=== PATIENT | male | born 1955 | race Caucasian/White ===

== ENCOUNTER 2017-09-23 14:38 | Inpatient (IN) | payer MEDICARE ==
[2017-09-23] MEDS ORDERED: LORazepam 1 MG TAB PO STA (15:10)
[2017-09-23] MEDS ORDERED: MORPHINE SULFATE 2 MG/ML SYRINGE IVP STA (15:11)
[2017-09-23] MEDS ORDERED: ASPIRIN 81 MG PO STA (15:11)
[2017-09-23] MEDS ORDERED: NITROGLYCERIN OINT 1 INCH/GM PACKET TOPICAL STA (15:11)
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
[2017-09-23] MEDS ORDERED: MAG HYDROX/AL HYDROX/SIMETH 30 ML CUP PO PRN (19:15)
[2017-09-23] MEDS ORDERED: ZIPRASIDONE 20 MG VIAL IM PRN (19:15)
[2017-09-23] MEDS ORDERED: MAGNESIUM HYDROXIDE 2,400 MG/10 ML CUP PO PRN (19:15)
[2017-09-23] MEDS ORDERED: LORazepam 1 MG TAB PO PRN (19:15)
[2017-09-23] MEDS ORDERED: ACETAMINOPHEN TAB 325 MG TAB PO PRN (19:15)
[2017-09-23] MEDS: NICOTINE 21MG/24HR PATCH TRANSDERM SCH (19:40)
[2017-09-24] MEDS ORDERED: BUTALB/APAP/CAFF 50-325-40MG TAB PO ONE (00:22)
[2017-09-24 00:46] VITALS: BMI 30.2
[2017-09-24 05:13] VITALS: BP 110/89; PULSE 89; RESP 14; TEMP 97.9
[2017-09-24] MEDS: NICOTINE 21MG/24HR PATCH TRANSDERM SCH (09:35)
[2017-09-24] MEDS ORDERED: ASPIRIN 81 MG PO SCH (13:00)
[2017-09-24] MEDS ORDERED: CLOPIDOGREL 75 MG TAB PO SCH (13:00)
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
--- NOTE | 2017-10-17 23:13 | P.DS ---
Providers Date of admission: 09/23/17 18:55 Expected date of discharge: 09/24/17 Attending physician: Alison Koenig DO Consults: 09/23/17 18:22 Consult Physician Stat Consulting Provider: Yenny Perla Consult Reason/Comments: chest pain with a history of ischemic heart disease Do you want consulting provider notified?: Yes 09/23/17 18:24 Consult Physician Stat Consulting Provider: Venancio Gibbs Consult Reason/Comments: chest pain Do you want consulting provider notified?: Yes Primary care physician: Isaac Larson - Discharge Diagnosis(es) (1) Adjustment disorder with mixed disturbance of emotions and conduct Status: Acute Hospital Course: [place] [facility] but later signed in voluntarily. He adamantly denied SI and was not an acute danger to himself at time of evaluation. Although he did have limited judgment and poor reaction ( anger) to stress, he did not meet criteria for continued involuntary hospitalization. He was opposed to the option of psychotropic medications at the time of admission and evaluation so it was determined that he would not benefit from further voluntary admission. Patient did contact his sister and SW also spoke with her. Sister was willing to take patient to her home and monitor him for safety. She voiced that she was not concerned of patient being a danger to himself. Therefore, pt was discharged to his sister's home. Recommend that patient follow-up with individual psychotherapy for further anger management and improvement of coping skills. Patient Condition at Discharge: Good Plan - Discharge Summary New Discharge Prescriptions: Continue HYDROcodone/APAP 7.5-325MG [[place] 7.5-325] 1 tab PO Q4H PRN PRN Reason: Pain Doxycycline Hyclate [Vibramycin] 100 mg PO BID Discharge Medication List Doxycycline Hyclate [Vibramycin] 100 mg PO BID 09/23/17 [History] HYDROcodone/APAP 7.5-325MG [[place] 7.5-325] 1 tab PO Q4H PRN 09/23/17 [History] Follow up Appointment(s)/Referral(s): [facility] [Outside] - 10/04/17 11:00 am (w/ Sakshi Pink. Patient to arrive at 10:45am for paperwork. ) Isaac Larson MD [Primary Care Provider] - 1-2 days Patient Instructions/Handouts: Stress (DC), Suicide Prevention for Adults (DC) Activity/Diet/Wound Care/Special Instructions: No alcohol or street drugs, activity as tolerated, diet as tolerated, remove firearms from home. Call crisis line or 145 if having thoughts to hurt yourself or anyone else. ' Follow up with outpatient provider as set up at time of discharge. Patient is to stay with sister upon discharge, she is picking him up and monitoring him for safety. Discharge Disposition: HOME SELF-CARE
== END 2017-09-24 16:15 | disposition home or self-care (01) | DRG 882 ==
LOC: EC 14:38 → 3MHU 18:55
PROVIDERS: ADMIT Psychiatry & Neurology Psychiatry; ATTEND Psychiatry & Neurology Psychiatry
DX: F43.25 Adjustment disorder with mixed disturbance of emotions and conduct (principal); I11.0 Hypertensive heart disease with heart failure; I50.9 Heart failure, unspecified; R45.851 Suicidal ideations; E78.5 Hyperlipidemia, unspecified; G43.909 Migraine, unspecified, not intractable, without status migrainosus; I25.10 Atherosclerotic heart disease of native coronary artery without angina pectoris; Z81.1 Family history of alcohol abuse and dependence; Z91.14 Patient's other noncompliance with medication regimen; Z91.410 Personal history of adult physical and sexual abuse; Z91.411 Personal history of adult psychological abuse; Z95.5 Presence of coronary angioplasty implant and graft; Z88.0 Allergy status to penicillin; Z79.02 Long term (current) use of antithrombotics/antiplatelets; Z79.82 Long term (current) use of aspirin; Z79.899 Other long term (current) drug therapy; Z71.6 Tobacco abuse counseling; F17.200 Nicotine dependence, unspecified, uncomplicated
CPT/HCPCS: 82075; 84443; 93005; 99285

== ENCOUNTER 2019-02-16 18:24 | Inpatient (IN) | payer MEDICARE ==
[2019-02-16] MEDS ORDERED: IPRATROPIUM-ALBUTEROL 3 ML NEB INHALATION STA (18:34)
[2019-02-16] MEDS ORDERED: LEVOFLOXACIN 750MG-D5W PMX 750 MG in DEXTROSE/WATER 1 150ML.BAG IVPB STA (18:34)
[2019-02-16] MEDS ORDERED: methylPREDNISolone SOD SUCCI 125 MG/2 ML VIAL IV STA (18:34)
[2019-02-16] MEDS ORDERED: SODIUM CHLORIDE 0.9% 1,000 ML IV STA (18:34)
--- NOTE | 2019-02-16 18:35 | ED ---
SOB HPI - General Chief Complaint: Shortness of Breath Stated Complaint: Flu Time Seen by Provider: 02/16/19 18:33 Source: patient, RN notes reviewed, old records reviewed Mode of arrival: ambulatory Limitations: no limitations - History of Present Illness Initial Comments: This is a 63-year-old male the ER for evaluation. This patient presents today f or evaluation regarding severe shortness of breath. Patient is at bedside patient poor strain to distress, patient was seen at urgent care and had a diagnosis of influenza A yesterday. Significant shortness of breath developed initially today. Persistent fevers decreased appetite decreased oral intake. No prior similar similar complaint patient does have history of CHF MD Complaint: shortness of breath, cough, chest pain -: days(s) (2) Severity: moderate (CP), severe (SOB) Severity scale (1-10): 7 Quality: aching Consistency: constant Improves With: oxygen Worsens With: exertion, movement Known History Of: congestive heart failure Context: recent URI (FLuA) Associated Symptoms: chest pain, pain with inspiration, fever, cough Treatments Prior to Arrival: none - Related Data Home Medications Medication Instructions Recorded Confirmed Doxycycline Hyclate [Vibramycin] 100 mg PO BID 09/23/17 09/24/17 HYDROcodone/APAP 7.5-325MG [[place] 1 tab PO Q4H PRN 09/23/17 09/24/17 7.5-325] Allergies Allergy/AdvReac Type Severity Reaction Status Date / Time Penicillins Allergy Unknown Verified 02/16/19 18:28 Review of Systems ROS Statement: Those systems with pertinent positive or pertinent negative responses have been documented in the HPI. ROS Other: All systems not noted in ROS Statement are negative. Past Medical History Past Medical History: Heart Failure History of Any Multi-Drug Resistant Organisms: None Reported Past Surgical History: Heart Catheterization With Stent Additional Past Surgical History / Comment(s): NOSE, BRAIN SURGERY, EYE SURGERY Date of Last Stent Placement:: ukn Past Psychological History: No Psychological Hx Reported Smoking Status: Current every day smoker Past Alcohol Use History: None Reported Past Drug Use History: None Reported General Exam Limitations: no limitations General appearance: alert, anxious, in distress Head exam: Present: atraumatic, normocephalic, normal inspection Eye exam: Present: normal appearance, PERRL, EOMI. Absent: scleral icterus, conjunctival injection, periorbital swelling ENT exam: Present: normal exam, mucous membranes moist Neck exam: Present: normal inspection. Absent: tenderness, meningismus, lymphadenopathy Respiratory exam: Present: wheezes, accessory muscle use, decreased breath sounds. Absent: respiratory distress, rales, rhonchi, stridor Cardiovascular Exam: Present: regular rate, normal rhythm, normal heart sounds. Absent: systolic murmur, diastolic murmur, rubs, gallop, clicks GI/Abdominal exam: Present: soft, normal bowel sounds. Absent: distended, tenderness, guarding, rebound, rigid Extremities exam: Present: normal inspection, full ROM, normal capillary refill. Absent: tenderness, pedal edema, joint swelling, calf tenderness Back exam: Present: normal inspection Neurological exam: Present: alert, oriented X3, CN II-XII intact Psychiatric exam: Present: normal affect, normal mood Skin exam: Present: warm, dry, intact, normal color. Absent: rash Course Vital Signs 02/16/19 02/16/19 02/16/19 18:26 19:06 19:35 Temperature 96.9 F L Pulse Rate 66 100 100 Respiratory 36 H Rate Blood Pressure 132/111 O2 Sat by Pulse 95 Oximetry - Reevaluation(s) Reevaluation #1: 02/16/19 20:12 Medical record reviewed Reevaluation #2: 02/16/19 20:12 Patient placed on BiPAP on arrival to emergency room. After breathing treatments, patient is able to rest severedistress in severe distress, though still Medical Decision Making - Medical Decision Making 69 male the ER with known history of once a coming of severe shortness of breath hypoxia. Significant left upper lobe pneumonia. Patient placed on multiple antibiotics, Tamiflu. Admitted for cardiopulmonary support, patient currently resting comfortably on BiPAP - Lab Data Result diagrams: 02/16/19 19:00 02/16/19 19:00 Lab Results 02/16/19 02/16/19 02/16/19 Range/Units 19:00 19:00 19:00 WBC 13.3 H (3.8-10.6) k/uL RBC 5.44 (4.30-5.90) m/uL Hgb 17.5 (13.0-17.5) gm/dL Hct 56.2 H (39.0-53.0) % MCV 103.3 H (80.0-100.0) fL MCH 32.2 (25.0-35.0) pg MCHC 31.2 (31.0-37.0) g/dL RDW 14.1 (11.5-15.5) % Plt Count 250 (150-450) k/uL PT (9.0-12.0) sec INR (<1.2) APTT (22.0-30.0) sec Sodium 144 (137-145) mmol/L Potassium 4.0 (3.5-5.1) mmol/L Chloride 105 (98-107) mmol/L Carbon Dioxide 14 L (22-30) mmol/L Anion Gap 25 mmol/L BUN 25 H (9-20) mg/dL Creatinine 3.34 H (0.66-1.25) mg/dL Est GFR (CKD-EPI)AfAm 22 (>60 ml/min/1.73 sqM) Est GFR (CKD-EPI)NonAf 19 (>60 ml/min/1.73 sqM) Glucose 126 H (74-99) mg/dL Calcium 9.5 (8.4-10.2) mg/dL Magnesium 1.9 (1.6-2.3) mg/dL Total Bilirubin 3.5 H (0.2-1.3) mg/dL AST 51 (17-59) U/L ALT 29 (21-72) U/L Alkaline Phosphatase 103 (38-126) U/L Troponin I (0.000-0.034) ng/mL NT-Pro-B Natriuret Pep 4770 pg/mL Total Protein 7.0 (6.3-8.2) g/dL Albumin 3.8 (3.5-5.0) g/dL 02/16/19 02/16/19 Range/Units 19:00 19:00 WBC (3.8-10.6) k/uL RBC (4.30-5.90) m/uL Hgb (13.0-17.5) gm/dL Hct (39.0-53.0) % MCV (80.0-100.0) fL MCH (25.0-35.0) pg MCHC (31.0-37.0) g/dL RDW (11.5-15.5) % Plt Count (150-450) k/uL PT 10.9 (9.0-12.0) sec INR 1.0 (<1.2) APTT 30.0 (22.0-30.0) sec Sodium (137-145) mmol/L Potassium (3.5-5.1) mmol/L Chloride (98-107) mmol/L Carbon Dioxide (22-30) mmol/L Anion Gap mmol/L BUN (9-20) mg/dL Creatinine (0.66-1.25) mg/dL Est GFR (CKD-EPI)AfAm (>60 ml/min/1.73 sqM) Est GFR (CKD-EPI)NonAf (>60 ml/min/1.73 sqM) Glucose (74-99) mg/dL Calcium (8.4-10.2) mg/dL Magnesium (1.6-2.3) mg/dL Total Bilirubin (0.2-1.3) mg/dL AST (17-59) U/L ALT (21-72) U/L Alkaline Phosphatase (38-126) U/L Troponin I 0.205 H* (0.000-0.034) ng/mL NT-Pro-B Natriuret Pep pg/mL Total Protein (6.3-8.2) g/dL Albumin (3.5-5.0) g/dL - EKG Data -: EKG Interpreted by Me (EKG shows sinus tachycardia rate of 107, IL 1:30, QRS 96, QTc 50,) - Radiology Data Radiology results: report reviewed (S x-ray positive for left upper lobe pneumonia), image reviewed Critical Care Time Critical Care Time: Yes Total Critical Care Time: 65 Disposition Clinical Impression: Community acquired pneumonia, Influenza A, Fever, Hypoxia, Chest pain Disposition: ADMITTED IP TO THIS HOSP Condition: Serious Is patient prescribed a controlled substance at d/c from ED?: No Referrals: Isaac Larson MD [Primary Care Provider] - 1-2 days
[2019-02-16] MEDS: SODIUM CHLORIDE 0.9% 1,000 ML IV STA ×2 (19:00→23:49)
[2019-02-16 19:23] LABS: HGB 17.5 gm/dL (13.0-17.5); MCH 32.2 pg (25.0-35.0); MCHC 31.2 g/dL (31.0-37.0); MCV 103.3 fL (80.0-100.0); Macrocytosis Slight; Mean Platelet Volume 8.6; Platelet Count 250 k/uL (150-450); RBC 5.44 m/uL (4.30-5.90); RDW 14.1 % (11.5-15.5); WBC 13.3 k/uL (3.8-10.6)
[2019-02-16 19:24] LABS: Albumin 3.8 g/dL (3.5-5.0); Calcium 9.5 mg/dL (8.4-10.2); Magnesium 1.9 mg/dL (1.6-2.3); Total Bilirubin 3.5 mg/dL (0.2-1.3)
[2019-02-16 19:25] LABS: Prothrombin Time 10.9 sec (9.0-12.0)
[2019-02-16 19:28] LABS: HCT 56.2 % (39.0-53.0)
[2019-02-16] MEDS ORDERED: MORPHINE SULFATE 4 MG/ML SYRINGE IVP STA (19:45)
[2019-02-16] MEDS ORDERED: LORazepam 2 MG/ML INJ IV STA (19:45)
[2019-02-16] MEDS ORDERED: MORPHINE SULFATE 4 MG/ML SYRINGE IVP PRN (19:45)
[2019-02-16] MEDS ORDERED: PNEUMONIA PROTOCOL UTILIZED 1 EACH MISC PO PRN (19:47)
[2019-02-16] MEDS ORDERED: ALBUTEROL NEBULIZED 2.5 MG/3 ML INHALATION PRN (19:47)
--- NOTE | 2019-02-16 19:53 | XR ---
EXAMINATION TYPE: XR chest 1V DATE OF EXAM: 02/16/2019 COMPARISON: NONE HISTORY: Difficulty breathing TECHNIQUE: Single frontal view of the chest is obtained. FINDINGS: There is wedge-shaped area of 11 cm consolidation in the lateral left upper lobe. The othe r lung garsia are fairly clear. Heart and mediastinum are normal. There are chest leads. Bony thorax is intact. IMPRESSION: Left upper lobe pneumonia. Normal heart.
[2019-02-16] MEDS ORDERED: NALOXONE 0.4 MG/ML 1 ML VIAL IV STA (20:02)
[2019-02-16] MEDS ORDERED: KETOROLAC 30 MG/ML 1 ML VIAL IVP STA (20:02)
[2019-02-16] MEDS: SODIUM CHLORIDE 0.9% 500 ML 500 ML IV SCH ×3 (20:03→20:59)
[2019-02-16 20:13] LABS: Band Neutrophils % 48 %; Large Platelets Present; Metamyelocytes # (M) 0.93 k/uL (0); Metamyelocytes % 7 %; Monocytes # (M) 0.67 k/uL (0-1.0); Myelocytes # (M) 0.53 k/uL (0); Myelocytes % 4 %; Neutrophils % (M) 38 %; Nucleated Red Blood Cells 0 /100 WBC (0-0); Total Cells Counted 200; Toxic Vacuolation Present
[2019-02-16 20:14] LABS: Toxic Granulation Present
[2019-02-16] MEDS: SODIUM CHLORIDE 0.9% 1,000 ML IV SCH (21:01)
--- NOTE | 2019-02-16 21:25 | ED ---
Medical Decision Making - Medical Decision Making 63 male the ER, during patient's ER stay was found he has both influenza and positive for left upper lobe pneumonia, septic and the fact that his blood pressure is labile with renal failure, end organ damage. Lactic acid of 12. Patient given 30 mL/kg dose of IV fluid, but on multiple broad-spectrum antibiotics, decision made to place central line for labile blood pressure. Patient having significant decompensation Family is updated regarding results, findings, questions are answered. Decision made to place patient in the ICU, spoke with Dr. Oates for the ICU as well as admitting physician Dr. Ibrahim Patient remains on BiPAP, he remains awake and alert tolerating BiPAP a ppropriately patient is able to answer questions. - Lab Data Result diagrams: 02/17/19 04:20 02/17/19 04:20 Lab Results 02/16/19 02/16/19 02/16/19 Range/Units 19:00 19:00 19:00 WBC 13.3 H (3.8-10.6) k/uL RBC 5.44 (4.30-5.90) m/uL Hgb 17.5 (13.0-17.5) gm/dL Hct 56.2 H (39.0-53.0) % MCV 103.3 H (80.0-100.0) fL MCH 32.2 (25.0-35.0) pg MCHC 31.2 (31.0-37.0) g/dL RDW 14.1 (11.5-15.5) % Plt Count 250 (150-450) k/uL Neutrophils % (Manual) 38 % Band Neutrophils % 48 % Monocytes % (Manual) 5 % Metamyelocytes % 7 % Myelocytes % 4 % Neutrophils # (Manual) 11.40 H (1.3-7.7) k/uL Monocytes # (Manual) 0.67 (0-1.0) k/uL Metamyelocytes # (Man) 0.93 H (0) k/uL Myelocytes # (Manual) 0.53 H (0) k/uL Nucleated RBCs 0 (0-0) /100 WBC Manual Slide Review Performed Toxic Granulation Present Toxic Vacuolation Present Large Platelets Present Macrocytosis Slight PT (9.0-12.0) sec INR (<1.2) APTT (22.0-30.0) sec Sodium 144 (137-145) mmol/L Potassium 4.0 (3.5-5.1) mmol/L Chloride 105 (98-107) mmol/L Carbon Dioxide 14 L (22-30) mmol/L Anion Gap 25 mmol/L BUN 25 H (9-20) mg/dL Creatinine 3.34 H (0.66-1.25) mg/dL Est GFR (CKD-EPI)AfAm 22 (>60 ml/min/1.73 sqM) Est GFR (CKD-EPI)NonAf 19 (>60 ml/min/1.73 sqM) Glucose 126 H (74-99) mg/dL Plasma Lactic Acid Tra (0.7-2.0) mmol/L Calcium 9.5 (8.4-10.2) mg/dL Magnesium 1.9 (1.6-2.3) mg/dL Total Bilirubin 3.5 H (0.2-1.3) mg/dL AST 51 (17-59) U/L ALT 29 (21-72) U/L Alkaline Phosphatase 103 (38-126) U/L Troponin I (0.000-0.034) ng/mL NT-Pro-B Natriuret Pep 4770 pg/mL Total Protein 7.0 (6.3-8.2) g/dL Albumin 3.8 (3.5-5.0) g/dL 02/16/19 02/16/19 02/16/19 Range/Units 19:00 19:00 19:50 WBC (3.8-10.6) k/uL RBC (4.30-5.90) m/uL Hgb (13.0-17.5) gm/dL Hct (39.0-53.0) % MCV (80.0-100.0) fL MCH (25.0-35.0) pg MCHC (31.0-37.0) g/dL RDW (11.5-15.5) % Plt Count (150-450) k/uL Neutrophils % (Manual) % Band Neutrophils % % Monocytes % (Manual) % Metamyelocytes % % Myelocytes % % Neutrophils # (Manual) (1.3-7.7) k/uL Monocytes # (Manual) (0-1.0) k/uL Metamyelocytes # (Man) (0) k/uL Myelocytes # (Manual) (0) k/uL Nucleated RBCs (0-0) /100 WBC Manual Slide Review Toxic Granulation Toxic Vacuolation Large Platelets Macrocytosis PT 10.9 (9.0-12.0) sec INR 1.0 (<1.2) APTT 30.0 (22.0-30.0) sec Sodium (137-145) mmol/L Potassium (3.5-5.1) mmol/L Chloride (98-107) mmol/L Carbon Dioxide (22-30) mmol/L Anion Gap mmol/L BUN (9-20) mg/dL Creatinine (0.66-1.25) mg/dL Est GFR (CKD-EPI)AfAm (>60 ml/min/1.73 sqM) Est GFR (CKD-EPI)NonAf (>60 ml/min/1.73 sqM) Glucose (74-99) mg/dL Plasma Lactic Acid Tra 12.6 H* (0.7-2.0) mmol/L Calcium (8.4-10.2) mg/dL Magnesium (1.6-2.3) mg/dL Total Bilirubin (0.2-1.3) mg/dL AST (17-59) U/L ALT (21-72) U/L Alkaline Phosphatase (38-126) U/L Troponin I 0.205 H* (0.000-0.034) ng/mL NT-Pro-B Natriuret Pep pg/mL Total Protein (6.3-8.2) g/dL Albumin (3.5-5.0) g/dL - Radiology Data Radiology results: report reviewed (Chest x-ray shows right upper lobe pneumonia, stable, positive central venous catheterization), image reviewed Critical Care Time Critical Care Time: Yes Total Critical Care Time: 65 Disposition Clinical Impression: Community acquired pneumonia, Influenza A, Fever, Hypoxia, Chest pain, Sepsis, ARF (acute renal failure) Disposition: ADMITTED IP TO THIS HOSP Condition: Critical Procedures - Central Line Placement Right IJ Consent Obtained: verbal consent Patient Placed on Monitor/Pulse Ox: Yes Prep: mask, gown, gloves Central Line Prep: Povidone-Iodine 1% Local Anesthesia Used: Lidocaine 1% Central Line Lumen Inserted: triple Bloods Obtained for Lab: Yes Central Line Position: good blood return, all ports aspirated, flushed, capped, sutured in place with 3-0 nylon Post Procedure X-Ray: tip of catheter in good position Patient Tolerated Procedure: well Complications: none - Sepsis Sepsis Focused Exam #1 Time Sepsis Criteria Met: 20:00 Sepsis Focused Exam Date: 02/16/19 Sepsis Focused Exam Time: 23:00 Sepsis Focused Exam Complete: Yes Vital Signs & RN Notes Reviewed: Yes Capillary Refill: < 2 Seconds: Fingers, Toes Peripheral Pulses: Normal: Radial (R), Radial (L), Posterior Tibialis (R), Posterior Tibialis (L), Dorsalis Pedis (R), Dorsalis Pedis (L) Skin Color: Flushed Respiratory Exam: respiratory distress, wheezes, rhonchi Cardiovascular Exam: tachycardia
[2019-02-16] MEDS ORDERED: OSELTAMIVIR 75 MG CAP PO STA (21:30)
[2019-02-16] MEDS: IPRATROPIUM-ALBUTEROL 3 ML NEB INHALATION SCH (22:22)
[2019-02-16 22:23] LABS: Glucose,Whole Blood 140 mg/dL (75-99)
[2019-02-16] MEDS ORDERED: ONDANSETRON 4 MG/2 ML VIAL IVP PRN (23:05)
[2019-02-16] MEDS ORDERED: SODIUM CHLORIDE 0.9% 1,000 ML IV ONE (23:11)
[2019-02-16] MEDS: HYDROmorphone 1 MG/ML 1 ML SYRINGE IVP PRN (23:18)
[2019-02-16] MEDS: PANTOPRAZOLE 40 MG/10 ML VIAL IVP SCH (23:44)
[2019-02-17] MEDS: IPRATROPIUM-ALBUTEROL 3 ML NEB INHALATION SCH ×7 (00:01→23:08)
[2019-02-17] MEDS: NOREPINEPHRINE 32 MG in SODIUM CHLORIDE 0.9% 218 ML IV SCH ×2 (00:20→12:58)
[2019-02-17] MEDS: SODIUM CHLORIDE 0.9% 1,000 ML IV SCH ×2 (03:47→22:40)
[2019-02-17 04:47] LABS: HCT 45.3 % (39.0-53.0); MCH 31.5 pg (25.0-35.0); MCHC 31.5 g/dL (31.0-37.0); MCV 100.1 fL (80.0-100.0); Mean Platelet Volume 8.1; Platelet Count 154 k/uL (150-450); RBC 4.52 m/uL (4.30-5.90); RDW 13.7 % (11.5-15.5); WBC 11.1 k/uL (3.8-10.6)
[2019-02-17 04:52] LABS: Calcium 7.1 mg/dL (8.4-10.2); Magnesium 1.5 mg/dL (1.6-2.3); Phosphorus 4.8 mg/dL (2.5-4.5); Potassium 4.7 mmol/L (3.5-5.1)
[2019-02-17 04:56] LABS: HGB 14.2 gm/dL (13.0-17.5)
[2019-02-17] MEDS ORDERED: Magnesium Replacement Protocol 1 EACH MISC MISCELLANE PRN (05:26)
[2019-02-17] MEDS: LORazepam 2 MG/ML INJ IV PRN ×2 (05:38→09:13)
[2019-02-17] MEDS: MAGNESIUM SULFATE-D5W PMX 1 GM in DEXTROSE/WATER 1 100ML.BAG IVPB SCH ×2 (05:59→07:03)
[2019-02-17 07:26] LABS: Band Neutrophils % 46 %; Lymphocytes # (M) 0.11 k/uL (1.0-4.8); Metamyelocytes # (M) 0.22 k/uL (0); Metamyelocytes % 2 %; Monocytes # (M) 0.22 k/uL (0-1.0); Neutrophils % (M) 49 %; Nucleated Red Blood Cells 0 /100 WBC (0-0); Total Cells Counted 100; Toxic Granulation Present
[2019-02-17] MEDS: ENOXAPARIN 30 MG/0.3 ML SYRINGE SQ SCH (08:11)
[2019-02-17] MEDS: PANTOPRAZOLE 40 MG/10 ML VIAL IVP SCH ×2 (08:11→20:32)
[2019-02-17] MEDS ORDERED: FUROSEMIDE 10 MG/ML 10 ML VIAL IV STA (08:59)
[2019-02-17] MEDS ORDERED: VANCOMYCIN IV PER PHARMACY 1 EACH MISC MISCELLANE PRN (09:01)
--- NOTE | 2019-02-17 09:12 | XR ---
EXAMINATION TYPE: XR chest 1V DATE OF EXAM: 02/17/2019 COMPARISON: 02/16/2019 HISTORY: Shortness of breath TECHNIQUE: Single frontal view of the chest is obtained. FINDINGS: Left upper lobe infiltrate persists. Subsegmental infiltrate left lung base and small effu phillip also is reactive. There is now a right-sided central venous catheter the tip overlying the right atrium. No sizable pneumothorax. Chronic rib deformities noted. Heart size stable. Arthropathy of th e shoulders.. IMPRESSION: Stable left upper and left lower lobe areas of infiltrate. Correlate for pneumonia.
[2019-02-17] MEDS ORDERED: SODIUM CHLORIDE 0.9% 1,000 ML IV SCH (09:15)
[2019-02-17] MEDS: methylPREDNISolone SOD SUCCI 40 MG/ML 1 ML VIAL IV SCH ×2 (09:28→16:47)
[2019-02-17 09:50] LABS: ABG Base Excess -15.6 mmol/L; ABG HCO3 14 mmol/L (21-25); ABG Oxygen Saturation 99.2 % (94-97); ABG PCO2 42 mmHg (35-45); ABG PO2 172 mmHg (83-108); ABG TCO2 15 mmol/L (19-24)
[2019-02-17] MEDS ORDERED: SODIUM BICARB 8.4% 50 ML SYR (1 MEQ/ML) IV ONE ×3 (09:54→13:13)
[2019-02-17] MEDS ORDERED: VANCOMYCIN 1,750 MG in SODIUM CHLORIDE 0.9% 500 ML 500 ML IVPB ONE (10:00)
[2019-02-17 10:01] LABS: ABG PH 7.12 (7.35-7.45)
[2019-02-17] MEDS: HYDROmorphone 1 MG/ML 1 ML SYRINGE IVP PRN (10:16)
--- NOTE | 2019-02-17 10:45 | P.NPCON ---
History of Present Illness - Reason for Consult acute renal failure - History of Present Illness Reason for consultation: Acute kidney injury History of present illness: Patient is a 63-year-old male seen in renal consultation for acute kidney injury. Unclear as toany renal function is. Creatinine was 3.34 on admission yesterday and is up to 3.41 today. Patient presented to the hospital or shortness of breath. Patient was diagnosed with influenza A a day before admission. His oral intake has been poor. Patient is currently quite agitated. He is on a BiPAP. ABG suggestive of metabolic acidosis. His bicarb level is 16. Patient was quite hypotensive on admission with systolic blood pressures in the 70s. This morning his blood pressure was 96/56. He did receive 4-1/2 L of normal saline on admission. He also received a dose of IV Lasix this morning. He is maintained on antibiotics as well as Tamiflu. He was also having vomiting and diarrhea prior to admission. Seems to have improved. No history of diabetes. Patient is not able to provide any history at this time. Vital signs are stable. Blood pressures on the lower side. General: The patient appeared well nourished and normally developed. HEENT: Head exam is unremarkable. Neck is without jugular venous distension. LUNGS: Breath sounds decreased. HEART: Rate and Rhythm are regular. First and second heart sounds normal. No murmurs, rubs or gallops. ABDOMEN: Abdominal exam reveals normal bowel sounds. Non-tender and non- distended. No evidence of peritonitis. EXTREMITITES: No clubbing, cyanosis, or edema. Past Medical History Past Medical History: Heart Failure History of Any Multi-Drug Resistant Organisms: None Reported Past Surgical History: Heart Catheterization With Stent Additional Past Surgical History / Comment(s): NOSE, BRAIN SURGERY, EYE SURGERY Past Anesthesia/Blood Transfusion Reactions: No Reported Reaction Date of Last Stent Placement:: ukn Past Psychological History: No Psychological Hx Reported Smoking Status: Current every day smoker Past Alcohol Use History: None Reported Past Drug Use History: None Reported Medications and Allergies Home Medications Medication Instructions Recorded Confirmed Type Doxycycline Hyclate [Vibramycin] 100 mg PO BID 09/23/17 09/24/17 History HYDROcodone/APAP 7.5-325MG [[place] 1 tab PO Q4H PRN 09/23/17 09/24/17 History 7.5-325] Allergies Allergy/AdvReac Type Severity Reaction Status Date / Time Penicillins Allergy Unknown Verified 02/16/19 18:28 Physical Exam Vitals: Vital Signs Temp Pulse Resp BP Pulse Ox 02/17/19 09:00 114 H 21 96/56 96 02/17/19 08:00 96.8 F L 111 H 18 104/59 96 02/17/19 07:41 114 H 02/17/19 07:25 114 H 02/17/19 05:00 110 H 21 85/56 96 02/17/19 04:57 97 02/17/19 04:00 97.6 F 108 H 16 91/64 96 02/17/19 03:45 111 H 02/17/19 03:29 111 H 02/17/19 03:00 112 H 13 96/61 95 02/17/19 02:00 115 H 25 H 94/56 97 02/17/19 01:00 114 H 21 94/56 97 02/17/19 00:45 115 H 22 97/60 95 02/17/19 00:15 114 H 02/17/19 00:02 112 H 02/17/19 00:00 97.6 F 111 H 25 H 102/65 98 02/16/19 23:58 98 02/16/19 23:30 114 H 23 102/65 98 02/16/19 23:00 112 H 31 H 109/56 96 02/16/19 22:45 109 H 29 H 109/56 96 02/16/19 22:30 109 H 25 H 87/64 97 02/16/19 22:15 97.5 F L 112 H 30 H 114/61 99 02/16/19 21:52 96.9 F L 02/16/19 21:27 107 H 24 95/59 98 02/16/19 21:03 97.4 F L 104 H 22 87/56 98 02/16/19 20:18 106 H 24 92/59 95 02/16/19 20:12 24 02/16/19 20:10 112 H 24 72/58 95 02/16/19 19:47 24 02/16/19 19:35 100 02/16/19 19:06 100 02/16/19 18:26 96.9 F L 66 36 H 132/111 95 Intake and Output 02/16/19 02/17/19 02/17/19 22:59 06:59 14:59 Intake Total 150 2550 150 Output Total 50 Balance 150 2500 150 Intake: IV 150 Sodium Chloride 0.9% 1, 150 000 ml @ 150 mls/hr IV . Q6H40M [facility] Rx#:[id number] Intake, IV Titration 150 2550 Amount Sodium Chloride 0.9% 1, 150 1050 000 ml @ 150 mls/hr IV . Q6H40M [facility] Rx#:[id number] Sodium Chloride 0.9% 1, 1000 000 ml @ 999 mls/hr IV . Q1H1M [facility] Rx#:[id number] Sodium Chloride 0.9% 500 500 ml 500 ml @ 1000 mls/hr IV Q35M [facility] Rx#:[id number] Output: Urine 50 Other: Weight 95.254 kg 96 kg Results - Lab Results Most recent lab results ABG pH 7.12 (7.35-7.45) L* 02/17/19 09:46 ABG pCO2 42 mmHg (35-45) 02/17/19 09:46 ABG pO2 172 mmHg (83-108) H 02/17/19 09:46 ABG HCO3 14 mmol/L (21-25) L 02/17/19 09:46 ABG O2 Saturation 99.2 % (94-97) H 02/17/19 09:46 Calcium 7.1 mg/dL (8.4-10.2) L 02/17/19 04:20 Phosphorus 4.8 mg/dL (2.5-4.5) H 02/17/19 04:20 Magnesium 1.5 mg/dL (1.6-2.3) L 02/17/19 04:20 02/17/19 04:20 02/17/19 04:20 Assessment and Plan Plan: Assessment: 1. Acute kidney injury secondary to ATN secondary to hypotension and sepsis. Creatinine 3.41 today. Unknown baseline creatinine. 2. Metabolic acidosis secondary to acute kidney injury and lactic acidosis. Additional respiratory acidosis. 3. Severe sepsis secondary to pneumonia and influenza A. Maintained on Tamiflu and antibiotics. 4. Hypomagnesemia. Being replaced. Plan: Start sodium bicarbonate drip to be run at 80 mL an hour. Follow-up cultures. Maintain antibiotics. Continue to monitor renal function and urine output. No urgent need for renal present therapy at this time. Check urinalysis and renal ultrasound. Thank you for the consultation. I will continue to follow the patient with you during his hospital stay.
[2019-02-17 11:00] LABS: ABG Base Excess -13.1 mmol/L; ABG HCO3 16 mmol/L (21-25); ABG Oxygen Saturation 99.1 % (94-97); ABG PCO2 45 mmHg (35-45); ABG PO2 159 mmHg (83-108); ABG TCO2 17 mmol/L (19-24)
[2019-02-17 11:04] LABS: ABG PH 7.15 (7.35-7.45)
--- NOTE | 2019-02-17 11:36 | P.CNPUL ---
History of Present Illness Consult date: 02/17/19 Requesting physician: Venancio Gibbs Reason for consult: pneumonia, other (Sepsis) Chief complaint: shortness of breath History of present illness: this is a 63-year-old white male with history of coronary artery disease, and previous episodes of congestive heart failure, patient was seen in the walk-in clinic on Wednesday which is 2 days ago for symptoms of cough, sore throat, aches and pains. Patient was diagnosed as having acute influenza A infection. Placed on Tamiflu. However his symptoms have been getting worse, and last night he was brought into the ER. Patient was hypotensive, acidotic, and a chest x- ray showed a significant infiltrate involving the left upper lobe. Patient re quired multiple fluid boluses to maintain his adequate blood pressure. However he was noted to be oliguric, and he was noted to be extremely acidotic.his initial lactic acid on presentation was 12.6. Patient received significant amount of fluids, placed on BiPAP, and his ABG this morning showed a pO2 of 159 pCO2 of 45 pH of 7.15. Patient was noted to be extremely agitated and restless. And he was trying to pull his BiPAP frequently. A few amps of bicarb were given IV push, patient was placed on a bicarb drip. Follow-up chest x-ray this morning showedleft upper lobe infiltrate, and some component of interstitial edema noted in the left lung. Right lung was noted to be clear. Patient was given Lasix, but no response to Lasix. At this point he is extremely oliguric. Nephrology was consulted, and sodium bicarb drip was recommended.his BNP level was noted to be elevated at 4770 and his troponin was also a bit elevated at 0.205. Hence cardiology will be consulted.echocardiogram was also ordered. According to the the patient has been fairly healthy recently, and all his symptoms have been going on for the last 2 days. Review of Systems cannot be obtained, patient is on BiPAP, restless, agitated, however according to the he has been quite healthy recently until 2 days ago when he developed flulike symptoms. Past Medical History Past Medical History: Heart Failure History of Any Multi-Drug Resistant Organisms: None Reported Past Surgical History: Heart Catheterization With Stent Additional Past Surgical History / Comment(s): NOSE, BRAIN SURGERY, EYE SURGERY Past Anesthesia/Blood Transfusion Reactions: No Reported Reaction Date of Last Stent Placement:: ukn Past Psychological History: No Psychological Hx Reported Smoking Status: Current every day smoker Past Alcohol Use History: None Reported Past Drug Use History: None Reported Medications and Allergies Home Medications Medication Instructions Recorded Confirmed Type Aspirin EC [Ecotrin] 325 mg PO DAILY 02/17/19 02/17/19 History Benzonatate [Benzonatate Perle] 200 mg PO TID PRN 02/17/19 02/17/19 History Clopidogrel [Plavix] 75 mg PO DAILY 02/17/19 02/17/19 History Enalapril [Vasotec] 10 mg PO BID 02/17/19 02/17/19 History Evolocumab [Repatha Sureclick] 140 mg SQ Q14D 02/17/19 02/17/19 History Folic Acid 1 mg PO TID 02/17/19 02/17/19 History Gabapentin 600 mg PO DAILY PRN 02/17/19 02/17/19 History Metoprolol Succinate (ER) [Toprol 100 mg PO DAILY 02/17/19 02/17/19 History Xl] Nitroglycerin Sl Tabs [Nitrostat] 0.4 mg SUBLINGUAL Q5M PRN 02/17/19 02/17/19 History Allergies Allergy/AdvReac Type Severity Reaction Status Date / Time atorvastatin [From Lipitor] Allergy Unknown Verified 02/17/19 10:41 Penicillins Allergy Unknown Verified 02/17/19 10:41 pravastatin Allergy Unknown Verified 02/17/19 10:41 rosuvastatin [From Crestor] Allergy Unknown Verified 02/17/19 10:41 simvastatin Allergy Unknown Verified 02/17/19 10:41 Physical Exam Vitals: Vital Signs Temp Pulse Resp BP Pulse Ox 02/17/19 09:00 114 H 21 96/56 96 02/17/19 08:00 96.8 F L 111 H 18 104/59 96 02/17/19 07:41 114 H 02/17/19 07:25 114 H 02/17/19 05:00 110 H 21 85/56 96 02/17/19 04:57 97 02/17/19 04:00 97.6 F 108 H 16 91/64 96 02/17/19 03:45 111 H 02/17/19 03:29 111 H 02/17/19 03:00 112 H 13 96/61 95 02/17/19 02:00 115 H 25 H 94/56 97 02/17/19 01:00 114 H 21 94/56 97 02/17/19 00:45 115 H 22 97/60 95 02/17/19 00:15 114 H 02/17/19 00:02 112 H 02/17/19 00:00 97.6 F 111 H 25 H 102/65 98 02/16/19 23:58 98 02/16/19 23:30 114 H 23 102/65 98 02/16/19 23:00 112 H 31 H 109/56 96 02/16/19 22:45 109 H 29 H 109/56 96 02/16/19 22:30 109 H 25 H 87/64 97 02/16/19 22:15 97.5 F L 112 H 30 H 114/61 99 02/16/19 21:52 96.9 F L 02/16/19 21:27 107 H 24 95/59 98 02/16/19 21:03 97.4 F L 104 H 22 87/56 98 02/16/19 20:18 106 H 24 92/59 95 02/16/19 20:12 24 02/16/19 20:10 112 H 24 72/58 95 02/16/19 19:47 24 02/16/19 19:35 100 02/16/19 19:06 100 02/16/19 18:26 96.9 F L 66 36 H 132/111 95 Intake and Output 02/16/19 02/17/19 02/17/19 22:59 06:59 14:59 Intake Total 150 2550 150 Output Total 50 Balance 150 2500 150 Intake: IV 150 Sodium Chloride 0.9% 1, 150 000 ml @ 150 mls/hr IV . Q6H40M NI Rx#:[id number] Intake, IV Titration 150 2550 Amount Sodium Chloride 0.9% 1, 150 1050 000 ml @ 150 mls/hr IV . Q6H40M NI Rx#:[id number] Sodium Chloride 0.9% 1, 1000 000 ml @ 999 mls/hr IV . Q1H1M ONE Rx#:[id number] Sodium Chloride 0.9% 500 500 ml 500 ml @ 1000 mls/hr IV Q35M NI Rx#:[id number] Output: Urine 50 Other: Weight 95.254 kg 96 kg Physical Exam: Revealed a 63-year-old white male on BiPAP, and moderate respiratory distress. Seems to be agitated, restless, and keeps pulling his BiPAP Head: Atraumatic, normocephalic. Moist mucous membranes. HEENT:[Neck is supple.] [No neck masses.] [No thyromegaly.] [No JVD.]Chyna, EOMI, no icterus. Chest: [crackles and rhonchi noted bilaterally throughout, symmetrical chest expansion, no chest wall tenderness..] Cardiac Exam: [tachycardic, normal S1 and S2, no S3 gallop, no murmur.r.] Abdomen: [obese,Soft, nontender, no megaly, no rebound, no guarding, normal bowel sounds.] Extremities: [No clubbing, no edema, no cyanosis.]trace of bipedal edema. Neurological Exam: follows all instructions, however noted to be extremely restless and agitated. Moves all extremities. lymphatics: No lymphadenopathy. Skin: No rashes. Psychiatric: Could not be assessed. Patient is extremely agitated and restless. Results - Laboratory Findings CBC and BMP: 02/17/19 04:20 02/17/19 04:20 ABG ABG pH 7.15 (7.35-7.45) L* 02/17/19 10:56 ABG pCO2 45 mmHg (35-45) 02/17/19 10:56 ABG pO2 159 mmHg (83-108) H 02/17/19 10:56 ABG O2 Saturation 99.1 % (94-97) H 02/17/19 10:56 PT/INR, D-dimer PT 10.9 sec (9.0-12.0) 02/16/19 19:00 INR 1.0 (<1.2) 02/16/19 19:00 Abnormal lab findings: Abnormal Labs 02/16/19 02/16/19 02/16/19 19:00 19:00 19:00 WBC 13.3 H Hct 56.2 H MCV 103.3 H Neutrophils # (Manual) 11.40 H Lymphocytes # (Manual) Metamyelocytes # (Man) 0.93 H Myelocytes # (Manual) 0.53 H ABG pH ABG pO2 ABG HCO3 ABG Total CO2 ABG O2 Saturation Chloride Carbon Dioxide 14 L BUN 25 H Creatinine 3.34 H Glucose 126 H POC Glucose (mg/dL) Plasma Lactic Acid Tra Calcium Phosphorus Magnesium Total Bilirubin 3.5 H Troponin I 0.205 H* 02/16/19 02/16/19 02/17/19 19:50 22:12 00:35 WBC Hct MCV Neutrophils # (Manual) Lymphocytes # (Manual) Metamyelocytes # (Man) Myelocytes # (Manual) ABG pH ABG pO2 ABG HCO3 ABG Total CO2 ABG O2 Saturation Chloride Carbon Dioxide BUN Creatinine Glucose POC Glucose (mg/dL) 140 H Plasma Lactic Acid Tra 12.6 H* 8.5 H* Calcium Phosphorus Magnesium Total Bilirubin Troponin I 02/17/19 02/17/19 02/17/19 04:20 04:20 08:45 WBC 11.1 H Hct MCV 100.1 H Neutrophils # (Manual) 10.50 H Lymphocytes # (Manual) 0.11 L Metamyelocytes # (Man) 0.22 H Myelocytes # (Manual) ABG pH ABG pO2 ABG HCO3 ABG Total CO2 ABG O2 Saturation Chloride 112 H Carbon Dioxide 16 L BUN 30 H Creatinine 3.41 H Glucose 127 H POC Glucose (mg/dL) Plasma Lactic Acid Tra 5.1 H* Calcium 7.1 L Phosphorus 4.8 H Magnesium 1.5 L Total Bilirubin Troponin I 02/17/19 02/17/19 09:46 10:56 WBC Hct MCV Neutrophils # (Manual) Lymphocytes # (Manual) Metamyelocytes # (Man) Myelocytes # (Manual) ABG pH 7.12 L* 7.15 L* ABG pO2 172 H 159 H ABG HCO3 14 L 16 L ABG Total CO2 15 L 17 L ABG O2 Saturation 99.2 H 99.1 H Chloride Carbon Dioxide BUN Creatinine Glucose POC Glucose (mg/dL) Plasma Lactic Acid Tra Calcium Phosphorus Magnesium Total Bilirubin Troponin I - Diagnostic Findings Chest x-ray: image reviewed (as noted in HPI.) Assessment and Plan Assessment: impression: 1 acute influenza infection. Complicated by left upper lobe pneumonia. 2 acute pneumonia, likely staph aureus or Streptococcus. 3 acute sepsis with extreme lactic acidosis. 4 acute kidney injury secondary to acute tubular necrosis. Likely secondary to hypotension and sepsis.this is secondary to severe sepsis, pneumonia, and influenza A infection. 5 history of coronary artery disease and previous stent placement. 6 acute hypoxic respiratory failure secondary to profound metabolic acidosis secondary to sepsis. 7suspect some component of pulmonary edema based on his follow-up chest x-ray and based on elevated BNP level. 8 elevated troponin most likely secondary to sepsis, however considering his underlying history of coronary artery disease, cardiology was consulted. Recommendation: Discussed and reviewed the condition of the patient with his at bedside. I informed the that most likely he is going to require intubation and mechanical ventilation especially if he remains that agitated and restless, and I have a feeling patient has severe sepsis with acute kidney injury, pneumonia, and some component of congestive heart failure likely secondary to fluid overload. Patient will be seen by nephrology on consultation, antibiotics were startedin the ER initially, and I recommended that we continue Levaquin, Zosyn, I have recommended Solu-Medrol, and I have also recommended updrafts, diuretics.continue GI and DVT prophylaxis. Sodium bicarb drip was ordered patient received a total of 3 A of bicarb for the bicarb drip was initiated. And he remained quite metabolically acidotic. Prognosis is definitely guarded, we'll continue to follow. If blood pressure drops any further, may start the patient on pressors. Time with Patient: Greater than 30
[2019-02-17] MEDS ORDERED: SUCCINYLCHOLINE CHLORIDE VIAL 200 MG/10 ML VIAL IV ONE (11:39)
[2019-02-17] MEDS ORDERED: ROCURONIUM BROMIDE 10 MG/ML 10 ML VIAL IV ONE (11:39)
[2019-02-17] MEDS ORDERED: ETOMIDATE 2 MG/ML 10 ML VIAL ONE (11:39)
[2019-02-17] MEDS ORDERED: MIDAZOLAM 1 MG/ML 5 ML VIAL ONE (11:39)
[2019-02-17] MEDS: PROPOFOL 1,000 MG in EMPTY BAG 1 BAG IV SCH ×3 (11:49→20:33)
--- NOTE | 2019-02-17 12:13 | XR ---
EXAMINATION TYPE: XR chest 1V portable DATE OF EXAM: 02/17/2019 COMPARISON: 02/17/2019 HISTORY: Endotracheal tube placement TECHNIQUE: Single frontal view of the chest is obtained. FINDINGS: Endotracheal tube is satisfactory at the level of aortic arch located approximately 2.8 cm from the iban. Enteric tube courses beyond the distal [id number] with portions seen coiling in the expected region of the stomach. Report Right internal jugular central venous catheter terminates in the right atrium as seen on the prior. There is increasing confluence of a left-sided reticular op acities exaggerated by low lung volumes with slightly improved aeration of the left costophrenic angl e. Cardiomediastinal silhouette is stable. IMPRESSION: Increasing confluence of the left upper lobe and left midlung opacities again likely rep resenting pneumonia. Endotracheal tube appears satisfactory in position as does the enteric tube.
[2019-02-17] MEDS: DEXTROSE 5% IN WATER 1,000 ML with SODIUM BICARB (1 MEQ/ML) 150 ML IV SCH (12:37)
[2019-02-17 12:41] LABS: ABG Base Excess -12.3 mmol/L; ABG HCO3 18 mmol/L (21-25); ABG Oxygen Saturation 99.3 % (94-97); ABG PCO2 64 mmHg (35-45); ABG PO2 270 mmHg (83-108); ABG TCO2 20 mmol/L (19-24)
[2019-02-17 12:47] LABS: ABG PH 7.06 (7.35-7.45)
[2019-02-17] MEDS ORDERED: METOPROLOL TARTRATE 25 MG TAB PO SCH (13:00)
--- NOTE | 2019-02-17 13:14 | CONS ---
CONSULTATION Mr. Armas is a 63-year-old male who presented to the emergency room with symptoms of progressive dyspnea. The history is obtained from the family. The patient is intubated and sedated. Apparently he has a history of coronary artery disease, status post percutaneous revascularization most recently 10 years ago, history of chronic tobacco use, who for the last few days has been complaining of progressive dyspnea, fatigue and generalized achiness. He came into the emergency room, was noted to be hypotensive, acidotic with elevated lactic acid level. He deteriorated and required mechanical ventilation. Cardiology consultation was requested because of mild troponin elevation. According to the family, he uses nitroglycerin some times, but he is not active physically. He has chronic dyspnea on exertion and chronic tobacco use. He has no significant peripheral edema. No dizziness. No palpitation. No syncope. That has been documented in the past. No documented congestive heart failure. He has no history of chronic kidney disease, although his renal function are abnormal on presentation. MEDICATION: His medications prior to admission include gabapentin, metoprolol succinate 100 mg daily, Repatha, Vasotec 10 mg twice a day, Plavix 75 mg daily, aspirin once a day. REVIEW OF SYSTEMS: Review of systems is not obtainable. PHYSICAL EXAMINATION: He is a 63-year-old male, intubated, sedated. Blood pressure 100/40 with the heart rate in the one teens in sinus tachycardia. HEAD: Normocephalic. EYES: Sclerae anicteric. NECK: Good carotid upstroke. No bruit. No jugular venous distention. LUNGS: With decreased air exchange and bilaterally no wheezes. HEART: Regular rate and rhythm. Tachycardic. S1, S2. No S3. No rub with a systolic murmur. ABDOMEN: Soft. Positive bowel sounds. No organomegaly. EXTREMITIES: Trace edema +1 distal pulses. LAB DATA: Lab data revealed on admission white blood cells 13.3, BUN and creatinine 25 and 3.34. Troponin 0.205. NT proBNP of 4770. His plasma lactic level was 12.6. His pH 7.12 and subsequently 7.15. His BUN creatinine this morning 30 and 3.41. His lactic acid is down to 5.1. His magnesium is 1.5. His EKG revealed a sinus mechanism, rate of [address]-T wave changes. IMPRESSION: 1. Respiratory failure with pneumonia and influenza A infection. 2. Sepsis with lactic acidosis. 3. Acute kidney disease. It is unclear if the patient had underlying kidney disease in the past. 4. Coronary artery disease, prior stenting. 5. Mild elevation of troponin related to the sepsis and represented type 2 myocardial injury. 6. Chronic tobacco use. 7. History of hypertension. 8. Hyperlipidemia by history. RECOMMENDATION: From the cardiac standpoint, will obtain echocardiogram with Doppler. I will re- initiate a low-dose beta janice to prevent reflex tachycardia. Continue supportive care and depending on his progress, further recommendation will be made. We will try to obtain prior lab data that was from his primary care physician to see what his baseline renal functions are. Thank you for this consult. We will follow with you. MATT / IJN: [id number] /
--- NOTE | 2019-02-17 13:58 | ECHOF ---
Referral Reason:chf MEASUREMENTS -------- HEIGHT: 180.3 cm WEIGHT: 95.7 kg BP: 95/56 RVIDd: 3.2 cm (< 3.3) IVSd: 1.4 cm (0.6 - 1.1) LVIDd: 4.3 cm (3.9 - 5.3) LVPWd: 1.4 cm (0.6 - 1.1) IVSs: 1.5 cm LVIDs: 2.2 cm LVPWs: 1.5 cm LAESV Index (A-L): 10.88 ml/m Ao Diam: 3.6 cm (2.0 - 3.7) AV Cusp: 1.9 cm (1.5 - 2.6) EPSS: 0.9 cm MV E Sotero: 1.01 m/s MV DecT: 264 ms MV A Sotero: 0.85 m/s MV E/A Ratio: 1.18 AV maxP.55 mmHg AV meanP.58 mmHg RAP: 10.00 mmHg RVSP: 15.60 mmHg MV EF SLOPE: 162.69 mm/s (70 - 150) MV EXCURSION: 2.56 cm (> 18.000) FINDINGS -------- Resting tachycardia (HR>100bpm). This was a technically adequate study. The left ventricular size is normal. There is moderate concentric left ventricular hypertrophy. O verall left ventricular systolic function is normal with, an EF between 60 - 65 %. The right ventricle is normal in size and function. Normal LA size by volume 22+/-6 ml/m2. The right atrium is normal in size. Aortic valve is trileaflet and is mildly thickened. There is no evidence of aortic regurgitation. There is no evidence of aortic stenosis. The mitral valve leaflets are mildly thickened. There is trace to mild mitral regurgitation. Trace tricuspid regurgitation present. Right ventricular systolic pressure is normal at < 35 mmHg. There is no evidence of pulmonary hypertension. Trace/mild (physiologic) pulmonic regurgitation. The aortic root size is normal. Normal inferior vena cava with less than 50% inspiratory collapse consistent with estimated right atr ial pressure of 15 mmHg. There is no pericardial effusion. Pleural Effusion with Fibrin. CONCLUSIONS -------- 1. Resting tachycardia (HR>100bpm). 2. This was a technically adequate study. 3. The left ventricular size is normal. 4. There is moderate concentric left ventricular hypertrophy. 5. Overall left ventricular systolic function is normal with, an EF between 60 - 65 %. 6. Normal LA size by volume 22+/-6 ml/m2. 7. Aortic valve is trileaflet and is mildly thickened. 8. The mitral valve leaflets are mildly thickened. 9. There is trace to mild mitral regurgitation. 10. Trace tricuspid regurgitation present. 11. Right ventricular systolic pressure is normal at < 35 mmHg. 12. There is no evidence of pulmonary hypertension. 13. Trace/mild (physiologic) pulmonic regurgitation. 14. The aortic root size is normal. 15. Normal inferior vena cava with less than 50% inspiratory collapse consistent with estimated right atrial pressure of 15 mmHg. 16. There is no pericardial effusion. 17. Pleural Effusion with Fibrin. HANGER: Charles Jackson RDCS
--- NOTE | 2019-02-17 14:36 | US ---
EXAMINATION TYPE: US kidneys/renal and bladder DATE OF EXAM: 02/17/2019 COMPARISON: NONE CLINICAL HISTORY: roman. intubated ICU patient EXAM MEASUREMENTS: Right Kidney: 10.6 x 6.0 x 4.5 cm Left Kidney: 12.1 x 5.9 x 5.9 cm Post Void Residual Volume: NA as Loo Catheter is present Right Kidney: No hydronephrosis or masses seen; smaller than left kidney Left Kidney: No hydronephrosis or masses seen Bladder: Foely catheter is noted within bladder. Bladder is incompletely distended and suboptimally e valuated. There is no evidence for hydronephrosis at this point in time. No nephrolithiasis is seen. No ramon s are identified. IMPRESSION: Slightly asymmetric size of the right kidney although within normal limits. No hydronephrosis or neph rolithiasis.
[2019-02-17 14:40] LABS: ABG Base Excess -11.5 mmol/L; ABG HCO3 18 mmol/L (21-25); ABG Oxygen Saturation 94.7 % (94-97); ABG PCO2 55 mmHg (35-45); ABG PO2 80 mmHg (83-108); ABG TCO2 20 mmol/L (19-24)
[2019-02-17 14:47] LABS: ABG PH 7.12 (7.35-7.45)
[2019-02-17] MEDS ORDERED: SODIUM CHLORIDE 0.9% 1,000 ML IV ONE (15:22)
[2019-02-17] MEDS: LEVOFLOXACIN 250MG-D5W PMX 250 MG in DEXTROSE/WATER 1 50ML.BAG IVPB SCH (16:47)
[2019-02-17] MEDS ORDERED: LEVOFLOXACIN 500MG-D5W PMX 500 MG in DEXTROSE/WATER 1 100ML.BAG IVPB SCH (18:00)
--- NOTE | 2019-02-17 18:12 | P.HPIM ---
Review of Systems This is a 63 years old female with past medical history of congestive heart failure, coronary artery disease status post cardiac catheterization and stent placement. Patient presents with severe dyspnea, area she's been diagnosed with influenza a at urgent care parenchyma to the hospital. In the emergency room patient was found to be significantly dyspneic and hypoxic, and her blood pressure was on the low side. Patient eventually was intubated and transferred to the intensive care unit. Patient could not provide information so I was taken from the chart. She has had oliguria, with lactic acidosis, acute renal failure. Chest x-ray showing left upper lobe infiltrate, with interstitial edema. Patient also has new elevated troponin for which lamination inspector has been consulted Review of system: Nonapplicable Medication: Albuterol, aspirin, Lovenox, Dilaudid, Ativan, Solu-Medrol, vancomycin pharmacy to dose, norepinephrine, Zofran, Tamiflu, Protonix, Past Medical History Past Medical History: Heart Failure History of Any Multi-Drug Resistant Organisms: None Reported Past Surgical History: Heart Catheterization With Stent Additional Past Surgical History / Comment(s): NOSE, BRAIN SURGERY, EYE SURGERY Past Anesthesia/Blood Transfusion Reactions: No Reported Reaction Date of Last Stent Placement:: ukn Past Psychological History: No Psychological Hx Reported Smoking Status: Current every day smoker Past Alcohol Use History: None Reported Past Drug Use History: None Reported Medications and Allergies Home Medications Medication Instructions Recorded Confirmed Type Aspirin EC [Ecotrin] 325 mg PO DAILY 02/17/19 02/17/19 History Benzonatate [Benzonatate Perle] 200 mg PO TID PRN 02/17/19 02/17/19 History Clopidogrel [Plavix] 75 mg PO DAILY 02/17/19 02/17/19 History Enalapril [Vasotec] 10 mg PO BID 02/17/19 02/17/19 History Evolocumab [Repatha Sureclick] 140 mg SQ Q14D 02/17/19 02/17/19 History Folic Acid 1 mg PO TID 02/17/19 02/17/19 History Gabapentin 600 mg PO DAILY PRN 02/17/19 02/17/19 History Metoprolol Succinate (ER) [Toprol 100 mg PO DAILY 02/17/19 02/17/19 History Xl] Nitroglycerin Sl Tabs [Nitrostat] 0.4 mg SUBLINGUAL Q5M PRN 02/17/19 02/17/19 History Allergies Allergy/AdvReac Type Severity Reaction Status Date / Time atorvastatin [From Lipitor] Allergy Unknown Verified 02/17/19 10:41 Penicillins Allergy Unknown Verified 02/17/19 10:41 pravastatin Allergy Unknown Verified 02/17/19 10:41 rosuvastatin [From Crestor] Allergy Unknown Verified 02/17/19 10:41 simvastatin Allergy Unknown Verified 02/17/19 10:41 Physical Exam Vitals: Vital Signs Temp Pulse Resp BP Pulse Ox 02/17/19 17:15 112 H 26 H 102/60 96 02/17/19 17:00 111 H 26 H 102/62 96 02/17/19 16:45 112 H 26 H 101/49 96 02/17/19 16:30 109 H 26 H 93/63 96 02/17/19 16:25 109 H 02/17/19 16:17 106 H 02/17/19 16:15 106 H 26 H 95/38 97 02/17/19 16:00 99.5 F 106 H 26 H 97/56 99 02/17/19 15:45 105 H 26 H 91/58 99 02/17/19 15:30 107 H 26 H 89/62 97 02/17/19 15:15 109 H 26 H 111/70 97 02/17/19 15:00 112 H 26 H 110/66 95 02/17/19 14:45 112 H 26 H 90/55 96 02/17/19 14:30 112 H 26 H 110/68 95 02/17/19 14:15 111 H 26 H 107/28 95 02/17/19 14:00 111 H 26 H 95 02/17/19 13:45 112 H 26 H 97/56 92 L 02/17/19 13:30 113 H 26 H 105/56 90 L 02/17/19 13:15 115 H 26 H 99/64 90 L 02/17/19 13:00 115 H 20 95/56 97 02/17/19 12:11 118 H 02/17/19 12:00 98.6 F 120 H 20 94/56 95 02/17/19 11:00 116 H 20 104/56 96 02/17/19 10:00 121 H 20 120/63 95 02/17/19 09:00 114 H 21 96/56 96 02/17/19 08:00 96.8 F L 111 H 18 104/59 96 02/17/19 07:41 114 H 02/17/19 07:25 114 H 02/17/19 05:00 110 H 21 85/56 96 02/17/19 04:57 97 02/17/19 04:00 97.6 F 108 H 16 91/64 96 02/17/19 03:45 111 H 02/17/19 03:29 111 H 02/17/19 03:00 112 H 13 96/61 95 02/17/19 02:00 115 H 25 H 94/56 97 02/17/19 01:00 114 H 21 94/56 97 02/17/19 00:45 115 H 22 97/60 95 02/17/19 00:15 114 H 02/17/19 00:02 112 H 02/17/19 00:00 97.6 F 111 H 25 H 102/65 98 02/16/19 23:58 98 02/16/19 23:30 114 H 23 102/65 98 02/16/19 23:00 112 H 31 H 109/56 96 02/16/19 22:45 109 H 29 H 109/56 96 02/16/19 22:30 109 H 25 H 87/64 97 02/16/19 22:15 97.5 F L 112 H 30 H 114/61 99 02/16/19 21:52 96.9 F L 02/16/19 21:27 107 H 24 95/59 98 02/16/19 21:03 97.4 F L 104 H 22 87/56 98 02/16/19 20:18 106 H 24 92/59 95 02/16/19 20:12 24 02/16/19 20:10 112 H 24 72/58 95 02/16/19 19:47 24 02/16/19 19:35 100 02/16/19 19:06 100 02/16/19 18:26 96.9 F L 66 36 H 132/111 95 Intake and Output 02/17/19 02/17/19 02/17/19 06:59 14:59 22:59 Intake Total 2550 099.974 0430.650 Output Total 50 430 100 Balance 2500 128.134 4205.650 Intake: IV 950 1380 Dextrose 5% in Water 1, 240 380 000 ml @ 80 mls/hr IV . [id number] NI with Sodium Bicarb (1 Meq/ml) 150 ml Rx#:[id number] Sodium Chloride 0.9% 1, 150 000 ml @ 150 mls/hr IV . Q6H40M NI Rx#:[id number] Sodium Chloride 0.9% 1, 60 000 ml @ 20 mls/hr IV . Q24H NI Rx#:[id number] Sodium Chloride 0.9% 1, 1000 000 ml @ 999 mls/hr IV . Q1H1M STA Rx#:[id number] Vancomycin 1,750 mg In 500 Sodium Chloride 0.9% 500 ml 500 ml @ 167 mls/hr IVPB ONCE ONE Rx#: [id number] Intake, IV Titration 2550 15.948 80.650 Amount Norepinephrine 32 mg In 3.468 16.618 Sodium Chloride 0.9% 218 ml @ 0.05 MCG/KG/MIN 2. 233 mls/hr IV .Q24H NI Rx#:[id number] Propofol 1,000 mg In 12.48 64.032 Empty Bag 1 bag @ Titrate IV .Q0M NI Rx#: [id number] Sodium Chloride 0.9% 1, 1050 000 ml @ 150 mls/hr IV . Q6H40M NI Rx#:[id number] Sodium Chloride 0.9% 1, 1000 000 ml @ 999 mls/hr IV . Q1H1M ONE Rx#:[id number] Sodium Chloride 0.9% 500 500 ml 500 ml @ 1000 mls/hr IV Q35M NI Rx#:[id number] Output: Gastric Drainage 400 Urine 50 30 100 Other: Weight 96 kg ABP, PAP, CO, CI - Last 8 Hours Arterial Blood Pressure 93/46 Arterial Blood Pressure 103/47 Arterial Blood Pressure 95/44 Arterial Blood Pressure 100/51 Arterial Blood Pressure 94/51 Arterial Blood Pressure 93/50 Arterial Blood Pressure 90/48 Arterial Blood Pressure 75/42 Arterial Blood Pressure 88/43 Arterial Blood Pressure 106/45 Arterial Blood Pressure 112/46 Arterial Blood Pressure 102/47 Arterial Blood Pressure 102/48 Arterial Blood Pressure 100/47 Arterial Blood Pressure 115/60 Arterial Blood Pressure 95/46 Arterial Blood Pressure 97/48 Arterial Blood Pressure 106/48 Arterial Blood Pressure 100/43 GENERAL: The patient is intubated and sedated HEENT: Pupils are round and equally reacting to light. EOMI. No scleral icterus. No conjunctival pallor. Normocephalic, atraumatic. No pharyngeal erythema. No thyromegaly. CARDIOVASCULAR: S1 and S2 present. No murmurs, rubs, or gallops. -PULMONARY: Bilateral harsh breath sounds with crepitation ABDOMEN: Soft, nontender, nondistended, normoactive bowel sounds. No palpable organomegaly. MUSCULOSKELETAL: No joint swelling or deformity. EXTREMITIES: No cyanosis, clubbing, or pedal edema. NEUROLOGICAL: Gross neurological examination did not reveal any focal deficits. SKIN: No rashes. Results CBC & Chem 7: 02/17/19 04:20 02/17/19 04:20 Labs: Abnormal Lab Results - Last 24 Hours (Table) 02/16/19 02/16/19 02/16/19 Range/Units 19:00 19:00 19:00 WBC 13.3 H (3.8-10.6) k/uL Hct 56.2 H (39.0-53.0) % MCV 103.3 H (80.0-100.0) fL Neutrophils # (Manual) 11.40 H (1.3-7.7) k/uL Lymphocytes # (Manual) (1.0-4.8) k/uL Metamyelocytes # (Man) 0.93 H (0) k/uL Myelocytes # (Manual) 0.53 H (0) k/uL ABG pH (7.35-7.45) ABG pCO2 (35-45) mmHg ABG pO2 (83-108) mmHg ABG HCO3 (21-25) mmol/L ABG Total CO2 (19-24) mmol/L ABG O2 Saturation (94-97) % Chloride (98-107) mmol/L Carbon Dioxide 14 L (22-30) mmol/L BUN 25 H (9-20) mg/dL Creatinine 3.34 H (0.66-1.25) mg/dL Glucose 126 H (74-99) mg/dL POC Glucose (mg/dL) (75-99) mg/dL Plasma Lactic Acid Tra (0.7-2.0) mmol/L Calcium (8.4-10.2) mg/dL Phosphorus (2.5-4.5) mg/dL Magnesium (1.6-2.3) mg/dL Total Bilirubin 3.5 H (0.2-1.3) mg/dL Troponin I 0.205 H* (0.000-0.034) ng/mL 02/16/19 02/16/19 02/17/19 Range/Units 19:50 22:12 00:35 WBC (3.8-10.6) k/uL Hct (39.0-53.0) % MCV (80.0-100.0) fL Neutrophils # (Manual) (1.3-7.7) k/uL Lymphocytes # (Manual) (1.0-4.8) k/uL Metamyelocytes # (Man) (0) k/uL Myelocytes # (Manual) (0) k/uL ABG pH (7.35-7.45) ABG pCO2 (35-45) mmHg ABG pO2 (83-108) mmHg ABG HCO3 (21-25) mmol/L ABG Total CO2 (19-24) mmol/L ABG O2 Saturation (94-97) % Chloride (98-107) mmol/L Carbon Dioxide (22-30) mmol/L BUN (9-20) mg/dL Creatinine (0.66-1.25) mg/dL Glucose (74-99) mg/dL POC Glucose (mg/dL) 140 H (75-99) mg/dL Plasma Lactic Acid Tra 12.6 H* 8.5 H* (0.7-2.0) mmol/L Calcium (8.4-10.2) mg/dL Phosphorus (2.5-4.5) mg/dL Magnesium (1.6-2.3) mg/dL Total Bilirubin (0.2-1.3) mg/dL Troponin I (0.000-0.034) ng/mL 02/17/19 02/17/19 02/17/19 Range/Units 04:20 04:20 08:45 WBC 11.1 H (3.8-10.6) k/uL Hct (39.0-53.0) % MCV 100.1 H (80.0-100.0) fL Neutrophils # (Manual) 10.50 H (1.3-7.7) k/uL Lymphocytes # (Manual) 0.11 L (1.0-4.8) k/uL Metamyelocytes # (Man) 0.22 H (0) k/uL Myelocytes # (Manual) (0) k/uL ABG pH (7.35-7.45) ABG pCO2 (35-45) mmHg ABG pO2 (83-108) mmHg ABG HCO3 (21-25) mmol/L ABG Total CO2 (19-24) mmol/L ABG O2 Saturation (94-97) % Chloride 112 H (98-107) mmol/L Carbon Dioxide 16 L (22-30) mmol/L BUN 30 H (9-20) mg/dL Creatinine 3.41 H (0.66-1.25) mg/dL Glucose 127 H (74-99) mg/dL POC Glucose (mg/dL) (75-99) mg/dL Plasma Lactic Acid Tra 5.1 H* (0.7-2.0) mmol/L Calcium 7.1 L (8.4-10.2) mg/dL Phosphorus 4.8 H (2.5-4.5) mg/dL Magnesium 1.5 L (1.6-2.3) mg/dL Total Bilirubin (0.2-1.3) mg/dL Troponin I (0.000-0.034) ng/mL 02/17/19 02/17/19 02/17/19 Range/Units 09:46 10:56 12:37 WBC (3.8-10.6) k/uL Hct (39.0-53.0) % MCV (80.0-100.0) fL Neutrophils # (Manual) (1.3-7.7) k/uL Lymphocytes # (Manual) (1.0-4.8) k/uL Metamyelocytes # (Man) (0) k/uL Myelocytes # (Manual) (0) k/uL ABG pH 7.12 L* 7.15 L* 7.06 L* (7.35-7.45) ABG pCO2 64 H (35-45) mmHg ABG pO2 172 H 159 H 270 H (83-108) mmHg ABG HCO3 14 L 16 L 18 L (21-25) mmol/L ABG Total CO2 15 L 17 L (19-24) mmol/L ABG O2 Saturation 99.2 H 99.1 H 99.3 H (94-97) % Chloride (98-107) mmol/L Carbon Dioxide (22-30) mmol/L BUN (9-20) mg/dL Creatinine (0.66-1.25) mg/dL Glucose (74-99) mg/dL POC Glucose (mg/dL) (75-99) mg/dL Plasma Lactic Acid Tra (0.7-2.0) mmol/L Calcium (8.4-10.2) mg/dL Phosphorus (2.5-4.5) mg/dL Magnesium (1.6-2.3) mg/dL Total Bilirubin (0.2-1.3) mg/dL Troponin I (0.000-0.034) ng/mL 02/17/19 02/17/19 Range/Units 13:22 14:36 WBC (3.8-10.6) k/uL Hct (39.0-53.0) % MCV (80.0-100.0) fL Neutrophils # (Manual) (1.3-7.7) k/uL Lymphocytes # (Manual) (1.0-4.8) k/uL Metamyelocytes # (Man) (0) k/uL Myelocytes # (Manual) (0) k/uL ABG pH 7.12 L* (7.35-7.45) ABG pCO2 55 H (35-45) mmHg ABG pO2 80 L (83-108) mmHg ABG HCO3 18 L (21-25) mmol/L ABG Total CO2 (19-24) mmol/L ABG O2 Saturation (94-97) % Chloride (98-107) mmol/L Carbon Dioxide (22-30) mmol/L BUN (9-20) mg/dL Creatinine (0.66-1.25) mg/dL Glucose (74-99) mg/dL POC Glucose (mg/dL) (75-99) mg/dL Plasma Lactic Acid Tra (0.7-2.0) mmol/L Calcium (8.4-10.2) mg/dL Phosphorus (2.5-4.5) mg/dL Magnesium (1.6-2.3) mg/dL Total Bilirubin (0.2-1.3) mg/dL Troponin I 1.590 H* (0.000-0.034) ng/mL Microbiology - Last 24 Hours (Table) 02/17/19 10:00 Urine Culture - Preliminary Urine,Catheterized Thrombosis Risk Factor Assmnt - Choose All That Apply Any of the Below Risk Factors Present?: Yes Each Factor Represents 1 point: Abnormal pulmonary function (COPD), Age 41-60 years Each Risk Factor Represents 2 Points: Age 61-74 years, Central venous access Other congenital or acquired thrombophilia - If yes, enter type in comment: No Thrombosis Risk Factor Assessment Total Risk Factor Score: 6 Thrombosis Risk Factor Assessment Level: High Risk Assessment and Plan Assessment: Acute respiratory failure status post intubation Septic shock secondary to influenza infection and pneumonia Acute renal failure with oliguria Lactic acidosis Elevated troponin, evaluated by lamination inspector Plan: This is a 63 years old female who presents because of septic shock, secondary to pneumonia and influenza infection, renal failure, elevated troponin. Pulmonary/critical care unit, lamination inspector and seafood harvester R following the patient. Patient to continue on antibiotics. Continue with aspirin. Patient is on steroids and IV fluids.. School Age Program Teacher recommended beta janice and echocardiogram.Labs and medication were reviewed.. Continue same treatment. Continue with symptomatic treatment. Resume home medication. Monitor lytes and vitals. DVT and GI prophylaxis. Further recommendations of the clinical course of the patient DVT prophylaxis: Subcutaneous Lovenox GI Prophylaxis: Protonix Prognosis is guarded
[2019-02-17 20:11] LABS: ABG Base Excess -12.4 mmol/L; ABG HCO3 15 mmol/L (21-25); ABG Oxygen Saturation 96.8 % (94-97); ABG PCO2 38 mmHg (35-45); ABG PH 7.22 (7.35-7.45); ABG PO2 88 mmHg (83-108); ABG TCO2 17 mmol/L (19-24)
[2019-02-17] MEDS: OSELTAMIVIR 60 MG/10 ML ORAL SYRINGE PO SCH (20:32)
[2019-02-17] MEDS: CHLORHEXIDINE GLUCONATE 15 ML CUP MUCOUS MEM SCH (20:32)
[2019-02-17] MEDS ORDERED: SODIUM CHLORIDE 0.9% 500 ML 500 ML IV ONE (22:09)
[2019-02-17] MEDS ORDERED: HYDROCORTISONE SUCCINATE 100 MG/2 ML VIAL IV STA (22:09)
[2019-02-18] MEDS: methylPREDNISolone SOD SUCCI 40 MG/ML 1 ML VIAL IV SCH ×2 (02:03→09:18)
[2019-02-18] MEDS: IPRATROPIUM-ALBUTEROL 3 ML NEB INHALATION SCH ×6 (03:08→23:17)
[2019-02-18] MEDS: SODIUM CHLORIDE 0.9% 150 ML with VASOPRESSIN 60 UNIT IV SCH ×4 (03:56→12:49)
[2019-02-18 04:39] LABS: HCT 46.1 % (39.0-53.0); HGB 15.2 gm/dL (13.0-17.5); MCH 32.9 pg (25.0-35.0); MCHC 32.9 g/dL (31.0-37.0); MCV 99.8 fL (80.0-100.0); Mean Platelet Volume 8.7; Platelet Count 111 k/uL (150-450); RBC 4.62 m/uL (4.30-5.90); RDW 14.2 % (11.5-15.5); WBC 16.2 k/uL (3.8-10.6)
[2019-02-18 04:46] LABS: Potassium 5.8 mmol/L (3.5-5.1)
[2019-02-18] MEDS: DEXTROSE 5% IN WATER 1,000 ML with SODIUM BICARB (1 MEQ/ML) 150 ML IV SCH ×3 (04:54→22:17)
[2019-02-18 04:58] LABS: Band Neutrophils % 24 %; Lymphocytes # (M) 0.32 k/uL (1.0-4.8); Monocytes # (M) 1.13 k/uL (0-1.0); Neutrophils % (M) 67 %; Nucleated Red Blood Cells 0 /100 WBC (0-0); Total Cells Counted 200
[2019-02-18 04:59] LABS: Toxic Vacuolation Present
[2019-02-18 05:28] LABS: Calcium 6.1 mg/dL (8.4-10.2)
--- NOTE | 2019-02-18 06:18 | XR ---
EXAMINATION TYPE: XR chest 1V portable DATE OF EXAM: 02/18/2019 HISTORY: Tube placement. REFERENCE: Previous study dated 02/17/2019. FINDINGS: The patient is ET tube, NG tube and right internal jugular catheter remain in place, unchan ged in appearance. There is near complete collapse of the left lung. This is an interval change. There is interstitial c hange involving the remainder of the right lung. I suspect a small right effusion. IMPRESSION: NEAR COMPLETE COLLAPSE OF THE LEFT LUNG WITH SLIGHT SHIFT OF THE MEDIASTINAL STRUCTURES TOWARDS THE R IGHT. I COULD NOT EXCLUDE SOME DEGREE OF TENSION. THIS REPORT WAS PHONED TO JONATHAN IN THE ICU AT TIME OF REPORTING.
--- NOTE | 2019-02-18 06:56 | XR ---
EXAMINATION TYPE: XR chest 1V portable DATE OF EXAM: 02/18/2019 HISTORY: post thora-vent placement. REFERENCE: Previous study of earlier today. FINDINGS: A left pleural drain has been inserted. There has been improvement in the degree of pneumot horax on the left. There continues to be 20-30% by volume pneumothorax. The patient is ET tube, NG tube and right internal jugular catheter remain in place, unchanged in merry earance. There continues to be interstitial and confluent airspace disease on the right and confluent airspace disease at the left lung base. Heart size is upper limits of normal. I suspect small effusi ons. IMPRESSION: PARTIAL REEXPANSION OF THE LEFT LUNG.
[2019-02-18] MEDS ORDERED: CISATRACURIUM 2 MG/ML 5 ML VIAL IV ONE (07:09)
[2019-02-18 07:10] LABS: ABG Base Excess -10.3 mmol/L; ABG HCO3 18 mmol/L (21-25); ABG Oxygen Saturation 94.1 % (94-97); ABG PCO2 48 mmHg (35-45); ABG PO2 82 mmHg (83-108); ABG TCO2 20 mmol/L (19-24)
[2019-02-18 07:13] LABS: ABG PH 7.18 (7.35-7.45)
[2019-02-18] MEDS ORDERED: FUROSEMIDE 10 MG/ML 10 ML VIAL IV STA (07:13)
[2019-02-18] MEDS: CISATRACURIUM 200 MG in SODIUM CHLORIDE 0.9% 180 ML IV SCH (07:55)
--- NOTE | 2019-02-18 08:02 | ED ---
Medical Decision Making - Medical Decision Making I was called to the intensive care unit from the emergency department to evaluate a patient with a possible tension pneumothorax. Upon my arrival I noted that the patient was intubated, on maximum then settings with a PEEP of FiO2 of 100% oxygen saturation in the low 80s. Patient was noted to be hypotensive despite being on Levaquin. Physical exam revealed no breath sounds on the left. Chest x-ray did confirm a left-sided pneumothorax. The patient's hemodynamic instability, hypoxia this is determined to be an emergent life-saving procedure and was performed without verbal or written consent A 14-gauge Angiocath was inserted at the midclavicular line in the third intercostal space there is significant scott of air, patient's oxygenation improved slightly at that time decision was made to place a third event. It was placed without complication. There was air return patient's blood pressure and oxygenation both began to improve. X-ray did confirm appropriate placement and improvement of the pneumothorax. - Lab Data Result diagrams: 02/18/19 04:15 02/18/19 04:15 Lab Results 02/16/19 02/16/19 02/16/19 Range/Units 19:00 19:00 19:00 WBC 13.3 H (3.8-10.6) k/uL RBC 5.44 (4.30-5.90) m/uL Hgb 17.5 (13.0-17.5) gm/dL Hct 56.2 H (39.0-53.0) % MCV 103.3 H (80.0-100.0) fL MCH 32.2 (25.0-35.0) pg MCHC 31.2 (31.0-37.0) g/dL RDW 14.1 (11.5-15.5) % Plt Count 250 (150-450) k/uL Neutrophils % (Manual) 38 % Band Neutrophils % 48 % Monocytes % (Manual) 5 % Metamyelocytes % 7 % Myelocytes % 4 % Neutrophils # (Manual) 11.40 H (1.3-7.7) k/uL Monocytes # (Manual) 0.67 (0-1.0) k/uL Metamyelocytes # (Man) 0.93 H (0) k/uL Myelocytes # (Manual) 0.53 H (0) k/uL Nucleated RBCs 0 (0-0) /100 WBC Manual Slide Review Performed Toxic Granulation Present Toxic Vacuolation Present Large Platelets Present Macrocytosis Slight PT (9.0-12.0) sec INR (<1.2) APTT (22.0-30.0) sec Sodium 144 (137-145) mmol/L Potassium 4.0 (3.5-5.1) mmol/L Chloride 105 (98-107) mmol/L Carbon Dioxide 14 L (22-30) mmol/L Anion Gap 25 mmol/L BUN 25 H (9-20) mg/dL Creatinine 3.34 H (0.66-1.25) mg/dL Est GFR (CKD-EPI)AfAm 22 (>60 ml/min/1.73 sqM) Est GFR (CKD-EPI)NonAf 19 (>60 ml/min/1.73 sqM) Glucose 126 H (74-99) mg/dL Calcium 9.5 (8.4-10.2) mg/dL Magnesium 1.9 (1.6-2.3) mg/dL Total Bilirubin 3.5 H (0.2-1.3) mg/dL AST 51 (17-59) U/L ALT 29 (21-72) U/L Alkaline Phosphatase 103 (38-126) U/L Troponin I (0.000-0.034) ng/mL NT-Pro-B Natriuret Pep 4770 pg/mL Total Protein 7.0 (6.3-8.2) g/dL Albumin 3.8 (3.5-5.0) g/dL 02/16/19 02/16/19 Range/Units 19:00 19:00 WBC (3.8-10.6) k/uL RBC (4.30-5.90) m/uL Hgb (13.0-17.5) gm/dL Hct (39.0-53.0) % MCV (80.0-100.0) fL MCH (25.0-35.0) pg MCHC (31.0-37.0) g/dL RDW (11.5-15.5) % Plt Count (150-450) k/uL Neutrophils % (Manual) % Band Neutrophils % % Monocytes % (Manual) % Metamyelocytes % % Myelocytes % % Neutrophils # (Manual) (1.3-7.7) k/uL Monocytes # (Manual) (0-1.0) k/uL Metamyelocytes # (Man) (0) k/uL Myelocytes # (Manual) (0) k/uL Nucleated RBCs (0-0) /100 WBC Manual Slide Review Toxic Granulation Toxic Vacuolation Large Platelets Macrocytosis PT 10.9 (9.0-12.0) sec INR 1.0 (<1.2) APTT 30.0 (22.0-30.0) sec Sodium (137-145) mmol/L Potassium (3.5-5.1) mmol/L Chloride (98-107) mmol/L Carbon Dioxide (22-30) mmol/L Anion Gap mmol/L BUN (9-20) mg/dL Creatinine (0.66-1.25) mg/dL Est GFR (CKD-EPI)AfAm (>60 ml/min/1.73 sqM) Est GFR (CKD-EPI)NonAf (>60 ml/min/1.73 sqM) Glucose (74-99) mg/dL Calcium (8.4-10.2) mg/dL Magnesium (1.6-2.3) mg/dL Total Bilirubin (0.2-1.3) mg/dL AST (17-59) U/L ALT (21-72) U/L Alkaline Phosphatase (38-126) U/L Troponin I 0.205 H* (0.000-0.034) ng/mL NT-Pro-B Natriuret Pep pg/mL Total Protein (6.3-8.2) g/dL Albumin (3.5-5.0) g/dL Disposition Clinical Impression: Community acquired pneumonia, Influenza A, Fever, Hypoxia, Chest pain, Sepsis, ARF (acute renal failure) Disposition: ADMITTED IP TO THIS [facility] Condition: Critical Procedures - Badin Protocol (Time Out) Nurse: Sunni Johns - Chest Tube Insertion Consent Obtained: emergent situation Side of Procedure: left Indication: Pneumothorax (Tension) Placed on monitor/pulse oximetry: Yes Site Prep: Chloroprep Insertion Site: Other (Midclavicular 3rd intercostal space) Scalpel: #11 Open into Pleural Space Using: Trocar Tube Size (Rwandan): Other (Thoravent) Returns: Air Sutured in Place: No (adhesive) Type of Suction: Pleuravac Patient Tolerated Procedure: well - Sepsis Sepsis Focused Exam #1 Time Sepsis Criteria Met: 20:00
[2019-02-18 08:56] LABS: ABG Base Excess -9.1 mmol/L; ABG HCO3 20 mmol/L (21-25); ABG Oxygen Saturation 86.3 % (94-97); ABG PCO2 64 mmHg (35-45); ABG PO2 63 mmHg (83-108); ABG TCO2 22 mmol/L (19-24)
[2019-02-18 09:01] LABS: ABG PH 7.11 (7.35-7.45)
[2019-02-18] MEDS ORDERED: SODIUM BICARB 8.4% 50 ML SYR (1 MEQ/ML) IV ONE (09:05)
[2019-02-18] MEDS: ARTIFICIAL TEARS-HYPROMELLOSE DROPS 15 ML BTL BOTH EYES SCH ×4 (09:18→22:09)
--- NOTE | 2019-02-18 09:33 | XR ---
EXAMINATION TYPE: XR chest 1V portable DATE OF EXAM: 02/18/2019 HISTORY: possible collapse lung. REFERENCE: Previous study dated 02/18/2019. FINDINGS: The patient's left pleural drain has been adjusted. The patient's left-sided pneumothorax i s slightly larger and now approaches 50% by volume. The patient is ET tube, NG tube and right internal jugular catheter remain in place, unchanged in merry earance. There is interstitial and airspace disease persists and on the right. There are bilateral effusions, greater on the left than the right. Heart size is upper limits of normal. IMPRESSION: SLIGHT ENLARGEMENT IN THE PATIENT'S LEFT-SIDED PNEUMOTHORAX.
[2019-02-18] MEDS ORDERED: VANCOMYCIN 1,750 MG in SODIUM CHLORIDE 0.9% 500 ML 500 ML IVPB ONE (10:00)
[2019-02-18] MEDS: PROPOFOL 1,000 MG in EMPTY BAG 1 BAG IV SCH ×3 (10:21→21:00)
--- NOTE | 2019-02-18 10:47 | XR ---
EXAMINATION TYPE: XR chest 1V portable DATE OF EXAM: 02/18/2019 HISTORY: thoravent placement. REFERENCE: Previous study dated 02/18/2019. FINDINGS: There is a left-sided pleural drain. There is a 20-30% left-sided apical pneumothorax. Ther e is worsening atelectasis at the left lung base. There is interstitial airspace disease at the right lung base. The heart is not enlarged. There are bilateral effusions. IMPRESSION: RESIDUAL 20-30% BY VOLUME LEFT SIDED APICAL PNEUMOTHORAX.
--- NOTE | 2019-02-18 11:01 | XR ---
EXAMINATION TYPE: XR chest 1V portable DATE OF EXAM: 02/18/2019 HISTORY: chest tube inserted. REFERENCE: Previous study of earlier today. FINDINGS: A large-bore, left pleural drain has been inserted. There continues to be approximately a 5 -10% by volume left apical pneumothorax. There is bibasilar airspace disease. There is interstitial c hange, worse on the right than the left. The heart is not enlarged. I cannot exclude small effusions. IMPRESSION: 1. TINY RESIDUAL LEFT APICAL PNEUMOTHORAX. 2. BIBASILAR AIRSPACE DISEASE. 3. INTERSTITIAL CHANGE DESCRIBED.
[2019-02-18] MEDS: ASPIRIN 81 MG PO SCH (11:16)
[2019-02-18] MEDS: CHLORHEXIDINE GLUCONATE 15 ML CUP MUCOUS MEM SCH ×2 (11:16→22:13)
[2019-02-18] MEDS: ENOXAPARIN 30 MG/0.3 ML SYRINGE SQ SCH (11:17)
[2019-02-18] MEDS: PANTOPRAZOLE 40 MG/10 ML VIAL IVP SCH (11:17)
--- NOTE | 2019-02-18 11:36 | P.GSCN ---
History of Present Illness Consult date: 02/18/19 Reason for Consult: Spontaneous left pneumothorax. Requesting physician: Gisel Oates History of present illness: This is 63-year-old gentleman who is followed by Dr. Isaac Larson on an outpatient basis. His past medical history significant for coronary artery disease with previous cardiac stent placement, congestive heart failure, hyperlipidemia, hypertension, chronic tobacco abuse and neuropathy. The patient is currently sedated and intubated with mechanical ventilator support and the history was obtained from the patient's . According to the patient's on 02/15/2019 he presented to an urgent care center with complaints of shortness of breath, fever, and cough. At the urgent care center and influenza swab was obtained and he was diagnosed with influenza A. He was discharged home with Tamiflu. On , 02/16/2019 the patient's symptoms progressed with generalized weakness, achiness, fever, chills, vomiting, coughing and shortness of breath. The patient's was unsure if he was having diarrhea, pain or pre-syncope. He presented to the emergency department here at [facility] with the above-mentioned symptoms. A 12- lead EKG was completed which showed sinus tachycardia with a heart rate of 107 BPM. A chest x-ray was completed which demonstrated a left upper lobe pneumonia. His initial lab results showed a WBC 13.3, venous CO2 14, BUN 25, creatinine 3.34, lactic acid 12.6 and a troponin level of 0.205. Subsequently the patient was admitted to the hospital for further evaluation and workup. A consult was placed today for Dr. Seven Christensen from cardiothoracic surgery due to a spontaneous pneumothorax. Review of Systems Cannot be obtained due to the patient being sedated and intubated on mechanical ventilator support. Past Medical History Past Medical History: Coronary Artery Disease (CAD), Heart Failure, Hyperlipidemia, Hypertension Additional Past Medical History / Comment(s): Peripheral neuropathy. 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 History of Any Multi-Drug Resistant Organisms: None Reported Past Surgical History: Heart Catheterization With Stent Additional Past Surgical History / Comment(s): NOSE, BRAIN SURGERY, 13 right EYE surgeries related to trigeminal nerve palsy per the patient's . He also had an abdominal surgery when he was a teenager. Past Anesthesia/Blood Transfusion Reactions: No Reported Reaction Date of Last Stent Placement:: Unknown Past Psychological History: No Psychological Hx Reported Smoking Status: Current every day smoker Past Alcohol Use History: None Reported Past Drug Use History: None Reported - Past Family History Father Family Medical History: Cancer (Cancer of the stomach) Mother Additional Family Medical History / Comment(s): Abdominal aortic aneurysm Medications and Allergies Home Medications Medication Instructions Recorded Confirmed Type Aspirin EC [Ecotrin] 325 mg PO DAILY 02/17/19 02/17/19 History Benzonatate [Benzonatate Perle] 200 mg PO TID PRN 02/17/19 02/17/19 History Clopidogrel [Plavix] 75 mg PO DAILY 02/17/19 02/17/19 History Enalapril [Vasotec] 10 mg PO BID 02/17/19 02/17/19 History Evolocumab [Repatha Sureclick] 140 mg SQ Q14D 02/17/19 02/17/19 History Folic Acid 1 mg PO TID 02/17/19 02/17/19 History Gabapentin 600 mg PO DAILY PRN 02/17/19 02/17/19 History Metoprolol Succinate (ER) [Toprol 100 mg PO DAILY 02/17/19 02/17/19 History Xl] Nitroglycerin Sl Tabs [Nitrostat] 0.4 mg SUBLINGUAL Q5M PRN 02/17/19 02/17/19 History Allergies Allergy/AdvReac Type Severity Reaction Status Date / Time atorvastatin [From Lipitor] Allergy Unknown Verified 02/17/19 10:41 Penicillins Allergy Unknown Verified 02/17/19 10:41 pravastatin Allergy Unknown Verified 02/17/19 10:41 rosuvastatin [From Crestor] Allergy Unknown Verified 02/17/19 10:41 simvastatin Allergy Unknown Verified 02/17/19 10:41 Surgical - Exam Vital Signs Temp Pulse Resp BP Pulse Ox 96.9 F L 66 36 H 132/111 95 02/16/19 18:26 02/16/19 18:26 02/16/19 18:26 02/16/19 18:26 02/16/19 18:26 - General well developed, well nourished, obese - Eyes PERRL - ENT normal pinna, normal nares, normal mucosa, no congestion - Neck Neck is supple, no lymphadenopathy, no thyroidomegaly. no masses, no bruits, trachea midline, no venous distension - Respiratory Currently intubated with mechanical ventilator support. Current vent settings are assist control 34, TV 500, FiO2 100%, peep 10. Lung sounds are essentially diminished throughout. Respirations are symmetrical. Oxygen saturation are 91% on current mechanical ventilator settings. Left chest Thoravent's in place to low continuous wall suction -20 cm H2O. Persistent continuous air leak. Scant serosanguineous drainage. - Cardiovascular Regular rhythm with tachycardic rate. S1 and S2 present, negative for S3, gallop or murmur. Bedside telemetry showing sinus tachycardia heart rate 130. No edema present. Sequential compression devices in place to his bilateral lower extremities. Right radial arterial line in place and functioning. - Abdomen Abdomen is soft, nontender and nondistended. Hypoactive bowel sounds present to all 4 abdominal quadrants. OG tube in place to low intermittent wall suction. No organomegaly. - Genitourinary Loo catheter for accurate I&O. Draining clear kevin urine. - Rectum Deferred - Integumentary Skin is mottled to his bilateral feet and right hand. Left foot cold to touch, positive Doppler pulses to his posterior tibial and dorsalis pedis. No rashes present. - Neurologic The patient is sedated on Diprivan and is on a Nimbex drip at this time. - Psychiatric The patient is intubated with mechanical ventilator support. Results - Labs 02/18/19 04:15 02/18/19 04:15 Abnormal Lab Results - Last 24 Hours (Table) 02/17/19 02/17/19 02/17/19 Range/Units 10:56 12:37 13:22 WBC (3.8-10.6) k/uL Plt Count (150-450) k/uL Neutrophils # (Manual) (1.3-7.7) k/uL Lymphocytes # (Manual) (1.0-4.8) k/uL Monocytes # (Manual) (0-1.0) k/uL ABG pH 7.15 L* 7.06 L* (7.35-7.45) ABG pCO2 64 H (35-45) mmHg ABG pO2 159 H 270 H (83-108) mmHg ABG HCO3 16 L 18 L (21-25) mmol/L ABG Total CO2 17 L (19-24) mmol/L ABG O2 Saturation 99.1 H 99.3 H (94-97) % Potassium (3.5-5.1) mmol/L Carbon Dioxide (22-30) mmol/L BUN (9-20) mg/dL Creatinine (0.66-1.25) mg/dL Glucose (74-99) mg/dL Plasma Lactic Acid Tra (0.7-2.0) mmol/L Calcium (8.4-10.2) mg/dL Phosphorus (2.5-4.5) mg/dL Troponin I 1.590 H* (0.000-0.034) ng/mL 02/17/19 02/17/19 02/17/19 Range/Units 14:36 20:07 22:30 WBC (3.8-10.6) k/uL Plt Count (150-450) k/uL Neutrophils # (Manual) (1.3-7.7) k/uL Lymphocytes # (Manual) (1.0-4.8) k/uL Monocytes # (Manual) (0-1.0) k/uL ABG pH 7.12 L* 7.22 L (7.35-7.45) ABG pCO2 55 H (35-45) mmHg ABG pO2 80 L (83-108) mmHg ABG HCO3 18 L 15 L (21-25) mmol/L ABG Total CO2 17 L (19-24) mmol/L ABG O2 Saturation (94-97) % Potassium (3.5-5.1) mmol/L Carbon Dioxide (22-30) mmol/L BUN (9-20) mg/dL Creatinine (0.66-1.25) mg/dL Glucose (74-99) mg/dL Plasma Lactic Acid Tra 7.9 H* (0.7-2.0) mmol/L Calcium (8.4-10.2) mg/dL Phosphorus (2.5-4.5) mg/dL Troponin I (0.000-0.034) ng/mL 02/18/19 02/18/19 02/18/19 Range/Units 04:15 04:15 04:15 WBC 16.2 H (3.8-10.6) k/uL Plt Count 111 L (150-450) k/uL Neutrophils # (Manual) 14.70 H (1.3-7.7) k/uL Lymphocytes # (Manual) 0.32 L (1.0-4.8) k/uL Monocytes # (Manual) 1.13 H (0-1.0) k/uL ABG pH (7.35-7.45) ABG pCO2 (35-45) mmHg ABG pO2 (83-108) mmHg ABG HCO3 (21-25) mmol/L ABG Total CO2 (19-24) mmol/L ABG O2 Saturation (94-97) % Potassium 5.8 H (3.5-5.1) mmol/L Carbon Dioxide 14 L (22-30) mmol/L BUN 54 H (9-20) mg/dL Creatinine 5.34 H (0.66-1.25) mg/dL Glucose 162 H (74-99) mg/dL Plasma Lactic Acid Tra (0.7-2.0) mmol/L Calcium 6.1 L* (8.4-10.2) mg/dL Phosphorus 6.0 H (2.5-4.5) mg/dL Troponin I 4.250 H* (0.000-0.034) ng/mL 02/18/19 02/18/19 02/18/19 Range/Units 04:15 07:03 08:51 WBC (3.8-10.6) k/uL Plt Count (150-450) k/uL Neutrophils # (Manual) (1.3-7.7) k/uL Lymphocytes # (Manual) (1.0-4.8) k/uL Monocytes # (Manual) (0-1.0) k/uL ABG pH 7.18 L* 7.11 L* (7.35-7.45) ABG pCO2 48 H 64 H (35-45) mmHg ABG pO2 82 L 63 L (83-108) mmHg ABG HCO3 18 L 20 L (21-25) mmol/L ABG Total CO2 (19-24) mmol/L ABG O2 Saturation 86.3 L (94-97) % Potassium (3.5-5.1) mmol/L Carbon Dioxide (22-30) mmol/L BUN (9-20) mg/dL Creatinine (0.66-1.25) mg/dL Glucose (74-99) mg/dL Plasma Lactic Acid Tra 7.6 H* (0.7-2.0) mmol/L Calcium (8.4-10.2) mg/dL Phosphorus (2.5-4.5) mg/dL Troponin I (0.000-0.034) ng/mL Microbiology - Last 24 Hours (Table) 02/17/19 12:54 Gram Stain - Preliminary Sputum Sputum Culture - Preliminary 02/16/19 19:00 Blood Culture - Preliminary Blood No Growth after 24 hours 02/17/19 10:00 Urine Culture - Preliminary Urine,Catheterized Diabetes panel 02/18/19 Range/Units 04:15 Sodium 139 (137-145) mmol/L Potassium 5.8 H (3.5-5.1) mmol/L Chloride 107 (98-107) mmol/L Carbon Dioxide 14 L (22-30) mmol/L BUN 54 H (9-20) mg/dL Creatinine 5.34 H (0.66-1.25) mg/dL Glucose 162 H (74-99) mg/dL Calcium 6.1 L* (8.4-10.2) mg/dL Calcium panel 02/18/19 Range/Units 04:15 Calcium 6.1 L* (8.4-10.2) mg/dL Phosphorus 6.0 H (2.5-4.5) mg/dL Pituitary panel 02/18/19 Range/Units 04:15 Sodium 139 (137-145) mmol/L Potassium 5.8 H (3.5-5.1) mmol/L Chloride 107 (98-107) mmol/L Carbon Dioxide 14 L (22-30) mmol/L BUN 54 H (9-20) mg/dL Creatinine 5.34 H (0.66-1.25) mg/dL Glucose 162 H (74-99) mg/dL Calcium 6.1 L* (8.4-10.2) mg/dL Adrenal panel 02/18/19 Range/Units 04:15 Sodium 139 (137-145) mmol/L Potassium 5.8 H (3.5-5.1) mmol/L Chloride 107 (98-107) mmol/L Carbon Dioxide 14 L (22-30) mmol/L BUN 54 H (9-20) mg/dL Creatinine 5.34 H (0.66-1.25) mg/dL Glucose 162 H (74-99) mg/dL Calcium 6.1 L* (8.4-10.2) mg/dL - Imaging Chest x-ray: report reviewed, image reviewed Assessment and Plan Assessment: 1. Acute respiratory failure with pneumonia and influenza A infection. 2. Acute sepsis with lactic acidosis. 3. Acute kidney injury secondary to acute tubular necrosis secondary to hypotension and sepsis. 4. Metabolic acidosis secondary to acute kidney injury and lactic acidosis. 5. History of coronary artery disease with prior stenting. 6. History of hypertension. 7. History of hyperlipidemia 8. Mild elevation of troponin. 9. Chronic tobacco abuse, currently day smoker. Plan: The patient was seen and examined. His chart and diagnostics were reviewed. The patient's case was discussed with Dr. Seven Christensen from cardiothoracic surgery. Patient had a left chest Thoravent placed this morning, repeat x-ray demonstrates a persistent left-sided pneumothorax. Dr. Oates from pulmonary medicine placed another Thoravent chest tube. The repeat x-ray post Thoravent placement shows a persistent left-sided pneumothorax. Dr. Oates placed a #28- Italian chest tube with post chest tube placement x-ray showing good expansion of his left lung. At this time no surgical intervention is recommended, we will continue to follow and monitor the patient's chest x-rays. Keep left pleural chest tube in place. Mechanical ventilator management per Dr. Oates's recommendations. Avoid nephrotoxic agents. Medical management per primary care service. GI prophylaxis and DVT prophylaxis in place. Thank you Dr. Oates for this consult and we will look forward to working with you in the care of your patient. Time with Patient: Greater than 30
[2019-02-18 11:46] LABS: ABG Base Excess -5.3 mmol/L; ABG HCO3 23 mmol/L (21-25); ABG Oxygen Saturation 88.6 % (94-97); ABG PCO2 67 mmHg (35-45); ABG PO2 64 mmHg (83-108); ABG TCO2 26 mmol/L (19-24)
[2019-02-18 11:48] LABS: ABG PH 7.16 (7.35-7.45)
[2019-02-18] MEDS: SODIUM CHLORIDE 0.9% 1,000 ML IV SCH (11:52)
[2019-02-18] MEDS: HYDROCORTISONE SUCCINATE 100 MG/2 ML VIAL IV SCH ×2 (11:52→22:13)
--- NOTE | 2019-02-18 12:18 | CONS ---
CONSULTATION DATE OF SERVICE: 02/18/2019. REQUESTING PHYSICIAN: Dr. Gibbs REASON FOR CONSULTATION: Coffee ground emesis. HISTORY OF PRESENT ILLNESS: The patient is a 63 -year-old white male with history of coronary artery disease, congestive heart failure, was admitted to the hospital with severe shortness of breath and acute respiratory failure. The patient apparently came to the emergency room on Wednesday and was diagnosed with influenza and was discharged home as he was stable. Subsequently, a day later, he came back to the emergency room. He had significant dyspnea and was noted to be in acute respiratory failure. He was transferred to the Intensive Care Unit and was intubated. Last night he had a lung collapse on the left side and initially had Thoravent placed but this morning had a chest tube placement because of persistent collapse. While in the Intensive Care Unit, he had NG tube placed and there was some coffee ground material that was aspirated in the last 24 hours. There was approximately 800 mL of coffee ground material that was aspirated. The patient is presently on the vent, sedated and most of the history was obtained from the patient's who was at the bedside. He did not have any upper gastrointestinal symptoms prior to this hospitalization. No prior history of peptic ulcer disease or recent NSAID use. PAST MEDICAL HISTORY: Significant for congestive heart failure, coronary artery disease, hypertension, hyperlipidemia. MEDICATIONS: At home include Toprol, Gabapentin, folic acid, Repatha, Vasotec, Plavix, aspirin, nitroglycerin. ALLERGIES: ALLERGIES TO PENICILLIN, PRAVASTATIN, CRESTOR, AND SIMVASTATIN. SOCIAL HISTORY: No smoking. No alcohol use. FAMILY HISTORY: Could not be obtained. REVIEW OF SYMPTOMS: Review of systems could not be obtained as the patient is sedated on the vent. PHYSICAL EXAMINATION: He appears comfortable. Remains on the vent. VITAL SIGNS: Show a blood pressure of 101/65, pulse rate 138, temperature 99.8. HEENT examination unremarkable. Conjunctivae pink. Sclerae anicteric. Oral cavity no lesions. Neck no JVD or lymph node enlargement. Chest there was two Thoravent on the left anterior chest wall and a chest tube placement on the left side. Abdomen benign. Bowel sounds are positive. Extremities: No pedal edema. Neuro: Patient is sedated. LABS: Done at the time of admission to the hospital WBC 13.3 and today it is 16.2, hemoglobin 15.2, platelets of 111. INR is 1.3. BUN is 54, creatinine 5.34, plasma lactic acid level is 7.6. AST, ALT, are normal. T bilirubin is 2.5, alkaline phosphatase 1.3. Troponin increased to 4.2. IMPRESSION: 1. The patient recently diagnosed with influenza A 2 days ago presents to the hospital a day later with acute respiratory failure and septic shock with multiorgan involvement presently intubated, on the vent, has a chest tube placed early this morning for lung collapse. 2. Coffee-grounds emesis from the NG tube related to stress-induced gastritis. Hemoglobin stable at 15.2 g/dL. 3. History of coronary artery disease. 4. History of hypertension and hyperlipidemia. RECOMMENDATIONS: 1. Continue with broad-spectrum antibiotics. 2. The patient on pressors for hypertension. 3. On Protonix 40 mg twice daily for stress induced gastritis. 4. Continue with symptomatic and supportive care and aggressive ICU management. 5. No need for any endoscopic intervention at the present time. The plan was discussed with the patient's at the bedside. At this time we will follow him closely during this hospital stay. Thank you for this consultation. [id number] / IJN: [id number] /
--- NOTE | 2019-02-18 12:20 | P.PN ---
Subjective Progress Note Date: 02/18/19 Principal diagnosis: Acute septic shock secondary to pneumonia following acute influenza infection. this is a 63-year-old white male with history of coronary artery disease, and p revious episodes of congestive heart failure, patient was seen in the walk-in clinic on Wednesday which is 2 days ago for symptoms of cough, sore throat, aches and pains. Patient was diagnosed as having acute influenza A infection. Placed on Tamiflu. However his symptoms have been getting worse, and last night he was brought into the ER. Patient was hypotensive, acidotic, and a chest x- ray showed a significant infiltrate involving the left upper lobe. Patient required multiple fluid boluses to maintain his adequate blood pressure. However he was noted to be oliguric, and he was noted to be extremely acidotic.his initial lactic acid on presentation was 12.6. Patient received significant amount of fluids, placed on BiPAP, and his ABG this morning showed a pO2 of 159 pCO2 of 45 pH of 7.15. Patient was noted to be extremely agitated and restless. And he was trying to pull his BiPAP frequently. A few amps of bicarb were given IV push, patient was placed on a bicarb drip. Follow-up chest x-ray this morning showedleft upper lobe infiltrate, and some component of interstitial edema noted in the left lung. Right lung was noted to be clear. Patient was given Lasix, but no response to Lasix. At this point he is extremely oliguric. Nephrology was consulted, and sodium bicarb drip was recommended.his BNP level was noted to be elevated at 4770 and his troponin was also a bit elevated at 0.205. Hence cardiology will be consulted.echocardiogram was also ordered. According to the the patient has been fairly healthy recently, and all his symptoms have been going on for the last 2 days. Patient was reevaluated today on 02/18/2019, patient has not been doing well since he was admitted to the ICU yesterday. Patient required intubation intubation yesterday mostly because of his severe metabolic acidosis, and worsening oxygenation. Patient developed what seems to be a picture of ARDS. And early this morning he developed a spontaneous left-sided pneumothorax going into tension pneumothorax. I was called about this patient early this morning around 6 AM, recommended immediate chest tube placement by the ER physician who came in and placed a thoracic vent. Slight improvement was noted in the follow- up chest x-ray, but the lung did not expand enough. Patient remained relatively hypoxemic, he was on 100% FiO2, and I placed another thoracic vent next to the e arlier vent. Again follow-up chest x-ray did not show much improvement, then I proceeded to placement of a 28 [place] chest tube at the anterior axillary line and fifth intercostal space. Significant improvement was noted in the left sided pneumothorax. There was slight improvement in his O2 saturation, but not much. Patient was kept on mechanical ventilation, cut down his tidal volume to 475, increased his rate to 36, increased the PEEP to 12, and kept him on bronchodilators, antibiotics, I added Solu-Cortef, patient remains hypotensive and requiring almost 50 g of norepinephrine per minute. He was also placed for a short period of time last night on vasopressin. I have also recommended that the patient gets Nimbex, and kept on propofol, and we'll continue Dilaudid. 1 mg every 3 hours [id number]. Family was updated on his condition, and what is concerning is the patient remains relatively hypoxemic, hypotensive, requiring significant amount of pressors, oliguric, and extremely acidotic with combined metabolic and respiratory acidosis. Multiple consultants are on the c ase including cardiology, nephrology, and will initiate infectious disease consultation. In the meantime the patient remains on Tamiflu, antibiotics including vancomycin and Levaquin, he is also on Solu-Cortef, and on GI and DVT prophylaxis, multiple doses of Lasix were given and did not improve much of his urine output. Patient is now paralyzed sedated, he is on mechanical ventilation with tidal volume of 475, FiO2 of 100%, PEEP of 12, and assist control rate of 36. Patient is also on propofol, Nimbex, and 55 g of norepinephrine per minutes. Objective - Vital Signs Vital signs: Vital Signs Temp 98.2 F 02/18/19 08:00 Pulse 134 H 02/18/19 11:17 Resp 34 H 02/18/19 10:15 BP 97/65 02/18/19 09:45 Pulse Ox 89 L 02/18/19 10:15 Intake & Output 02/17/19 02/18/19 02/18/19 18:59 06:59 18:59 Intake Total 2590.588 2526.214 678.491 Output Total 530 170 35 Balance 2060.588 2356.214 643.491 Weight 103 kg Intake: IV 2480 2285 670 Dextrose 5% in Water 1, 770 1110 425 000 ml @ 125 mls/hr IV . Q9H12M NI with Sodium Bicarb (1 Meq/ml) 150 ml Rx#:[id number] Sodium Chloride 0.9% 1, 150 000 ml @ 150 mls/hr IV . Q6H40M NI Rx#:[id number] Sodium Chloride 0.9% 1, 60 000 ml @ 20 mls/hr IV . Q24H NI Rx#:[id number] Sodium Chloride 0.9% 1, 1175 245 000 ml @ 20 mls/hr IV . Q24H NI Rx#:[id number] Sodium Chloride 0.9% 1, 1000 000 ml @ 999 mls/hr IV . Q1H1M STA Rx#:[id number] Vancomycin 1,750 mg In 500 Sodium Chloride 0.9% 500 ml 500 ml @ 167 mls/hr IVPB ONCE ONE Rx#: [id number] Intake, IV Titration 110.588 241.214 8.491 Amount Cisatracurium 200 mg In 4.944 Sodium Chloride 0.9% 180 ml @ 1 MCG/KG/MIN 6.18 mls/hr IV .Q24H NI Rx#: [id number] Norepinephrine 32 mg In 34.076 41.214 3.547 Sodium Chloride 0.9% 218 ml @ 0.05 MCG/KG/MIN 2. 233 mls/hr IV .Q24H NI Rx#:[id number] Propofol 1,000 mg In 76.512 200 Empty Bag 1 bag @ Titrate IV .Q0M NI Rx#: [id number] Output: Gastric Drainage 400 Urine 130 170 35 Other: Voiding Method Indwelling Catheter Indwelling Catheter ABP, PAP, CO, CI - Last Documented Arterial Blood Pressure 96/50 - Exam Physical Exam: Revealed a 63-year-old white male on mechanical ventilation, sedated, and paralyzed with Nimbex. Head: Atraumatic, normocephalic. Moist mucous membranes. Endotracheal tube and orogastric tube were noted to be intact. HEENT:[Neck is supple.] [No neck masses.] [No thyromegaly.] [No JVD.]Chyna, EOMI, no icterus. Chest: [crackles and rhonchi noted bilaterally throughout, symmetrical chest expansion, 2 thoracic vent tubes noted in the upper anterior chest area, and the left sided chest tube laterally noted 28 [place]. Cardiac Exam: [tachycardic, normal S1 and S2, no S3 gallop, no murmur.r.] Abdomen: [obese,Soft, nontender, no megaly, no rebound, no guarding, normal bowel sounds.] Extremities: [No clubbing, no edema, no cyanosis.]trace of bipedal edema. Neurological Exam: Cannot be assessed, patient is sedated and paralyzed.. lymphatics: No lymphadenopathy. Skin: No rashes. Psychiatric: Could not be assessed. Sedated and paralyzed - Labs CBC & Chem 7: 02/18/19 04:15 02/18/19 04:15 Labs: Abnormal Lab Results - Last 24 Hours (Table) 02/17/19 02/17/19 02/17/19 Range/Units 12:37 13:22 14:36 WBC (3.8-10.6) k/uL Plt Count (150-450) k/uL Neutrophils # (Manual) (1.3-7.7) k/uL Lymphocytes # (Manual) (1.0-4.8) k/uL Monocytes # (Manual) (0-1.0) k/uL ABG pH 7.06 L* 7.12 L* (7.35-7.45) ABG pCO2 64 H 55 H (35-45) mmHg ABG pO2 270 H 80 L (83-108) mmHg ABG HCO3 18 L 18 L (21-25) mmol/L ABG Total CO2 (19-24) mmol/L ABG O2 Saturation 99.3 H (94-97) % Potassium (3.5-5.1) mmol/L Carbon Dioxide (22-30) mmol/L BUN (9-20) mg/dL Creatinine (0.66-1.25) mg/dL Glucose (74-99) mg/dL Plasma Lactic Acid Tra (0.7-2.0) mmol/L Calcium (8.4-10.2) mg/dL Phosphorus (2.5-4.5) mg/dL Troponin I 1.590 H* (0.000-0.034) ng/mL 03/29/19 03/29/19 03/30/19 Range/Units 20:07 22:30 04:15 WBC 16.2 H (3.8-10.6) k/uL Plt Count 111 L (150-450) k/uL Neutrophils # (Manual) 14.70 H (1.3-7.7) k/uL Lymphocytes # (Manual) 0.32 L (1.0-4.8) k/uL Monocytes # (Manual) 1.13 H (0-1.0) k/uL ABG pH 7.22 L (7.35-7.45) ABG pCO2 (35-45) mmHg ABG pO2 (83-108) mmHg ABG HCO3 15 L (21-25) mmol/L ABG Total CO2 17 L (19-24) mmol/L ABG O2 Saturation (94-97) % Potassium (3.5-5.1) mmol/L Carbon Dioxide (22-30) mmol/L BUN (9-20) mg/dL Creatinine (0.66-1.25) mg/dL Glucose (74-99) mg/dL Plasma Lactic Acid Tra 7.9 H* (0.7-2.0) mmol/L Calcium (8.4-10.2) mg/dL Phosphorus (2.5-4.5) mg/dL Troponin I (0.000-0.034) ng/mL 02/18/19 02/18/19 02/18/19 Range/Units 04:15 04:15 04:15 WBC (3.8-10.6) k/uL Plt Count (150-450) k/uL Neutrophils # (Manual) (1.3-7.7) k/uL Lymphocytes # (Manual) (1.0-4.8) k/uL Monocytes # (Manual) (0-1.0) k/uL ABG pH (7.35-7.45) ABG pCO2 (35-45) mmHg ABG pO2 (83-108) mmHg ABG HCO3 (21-25) mmol/L ABG Total CO2 (19-24) mmol/L ABG O2 Saturation (94-97) % Potassium 5.8 H (3.5-5.1) mmol/L Carbon Dioxide 14 L (22-30) mmol/L BUN 54 H (9-20) mg/dL Creatinine 5.34 H (0.66-1.25) mg/dL Glucose 162 H (74-99) mg/dL Plasma Lactic Acid Tra 7.6 H* (0.7-2.0) mmol/L Calcium 6.1 L* (8.4-10.2) mg/dL Phosphorus 6.0 H (2.5-4.5) mg/dL Troponin I 4.250 H* (0.000-0.034) ng/mL 02/18/19 02/18/19 02/18/19 Range/Units 07:03 08:51 11:32 WBC (3.8-10.6) k/uL Plt Count (150-450) k/uL Neutrophils # (Manual) (1.3-7.7) k/uL Lymphocytes # (Manual) (1.0-4.8) k/uL Monocytes # (Manual) (0-1.0) k/uL ABG pH 7.18 L* 7.11 L* 7.16 L* (7.35-7.45) ABG pCO2 48 H 64 H 67 H (35-45) mmHg ABG pO2 82 L 63 L 64 L (83-108) mmHg ABG HCO3 18 L 20 L (21-25) mmol/L ABG Total CO2 26 H (19-24) mmol/L ABG O2 Saturation 86.3 L 88.6 L (94-97) % Potassium (3.5-5.1) mmol/L Carbon Dioxide (22-30) mmol/L BUN (9-20) mg/dL Creatinine (0.66-1.25) mg/dL Glucose (74-99) mg/dL Plasma Lactic Acid Tra (0.7-2.0) mmol/L Calcium (8.4-10.2) mg/dL Phosphorus (2.5-4.5) mg/dL Troponin I (0.000-0.034) ng/mL Microbiology - Last 24 Hours (Table) 02/17/19 10:00 Urine Culture - Final Urine,Catheterized 02/17/19 12:54 Gram Stain - Preliminary Sputum Sputum Culture - Preliminary 02/16/19 19:00 Blood Culture - Preliminary Blood No Growth after 24 hours Assessment and Plan Assessment: impression: 1 Acute septic shock secondary to influenza infection complicated by a pneumonia and ARDS. 2 acute pneumonia, likely staph aureus or Streptococcus. 3 acute sepsis and septic shock 4 acute kidney injury secondary to acute tubular necrosis. Secondary to septic shock. And this is an end organ damage. 5 history of coronary artery disease and previous stent placement. 6 acute hypoxic respiratory failure secondary to profound metabolic acidosis secondary to sepsis. 7suspect some component of pulmonary edema based on his follow-up chest x-ray and based on elevated BNP level. 8 elevated troponin most likely secondary to sepsis, however considering his underlying history of coronary artery disease, cardiology was consulted. 9 left sided pneumothorax secondary to barotrauma, secondary to mechanical ventilation, patient is status post 2 thoracic vent tubes placed, followed by 28 [place] chest tube placed by me. Recommendation: Today I had a long discussion with his family members at bedside. They were made aware of his poor prognosis, made aware of all his issues including his septic shock, pneumonia, acute kidney injury, multisystem organ failure, and made aware that the overall picture does not look very promising. There were also made aware of the left-sided pneumothorax requiring tube placements as noted above. For the time being, will continue aggressive medical measures including mechanical ventilation, antibiotics, anti-influenza treatment, GI and DVT prophylaxis, cut down the Tylenol volume to 475, increased his assist-control rate to 36, will increase the PEEP if needed, however the patient is always at risk of developing pneumothorax on the right side now. Patient is extremely and critically ill. Time spent on this patient is 1 hour and 15 minutes, excluding the time spent on procedures that is left-sided thoracic vent placement, and left-sided chest tube placement. Patient will be kept also on sodium bicarb drip, and will be kept on Nimbex along with Dilaudid, propofol, pressors to continue and hemodynamic support will continue. Infectious disease consultation was also requested. Patient is being followed by many consultants at this point. Again prognosis is extremely poor and guarded. Family is very well aware of the condition. Even if the patient is to be transferred, he is not presently stable enough for any transfer plans. Critical care time is 75 minutes excluding time spent on procedures. Time with Patient: Greater than 30
--- NOTE | 2019-02-18 12:45 | PCN ---
PROCEDURE NOTE PROCEDURE PERFORMED: Placement of the left sided chest tube/Thoravent. PREOPERATIVE DIAGNOSIS: Acute spontaneous pneumothorax, did not resolve with one Thoravent placed earlier by the ER physician. POSTOPERATIVE DIAGNOSIS: Acute spontaneous pneumothorax, did not resolve with one Thoravent placed earlier by the ER physician. ANESTHESIA USED: 5 mL of 1% lidocaine. PROCEDURE IN DETAIL: The patient was placed in a sitting upright position, the area below the left clavicle was prepared in a sterile fashion and drapes were applied. The area was locally anesthetized at the 2nd intercostal space and midclavicular line. Then a small tiny incision was made. Through that incision, I was able to advance a 13-Lao Thoravent with the trocar into the pleural space. As that space was entered and the diaphragm was noted to move, the trocar was removed. This was connected to a Pleur-Evac. No evidence of any immediate complications, however, followup chest x-ray did not show significant improvement in the left-sided pneumothorax. MMODL / IJN: [id number] /
--- NOTE | 2019-02-18 12:45 | PCN ---
PROCEDURE NOTE PROCEDURE PERFORMED: Placement of the left-sided 28 argyle chest tube. PREOPERATIVE DIAGNOSIS: Left-sided pneumothorax, did not improve with two Thoravent tubes placed earlier. POSTOP DIAGNOSIS: Left-sided pneumothorax, did not improve with two Thoravent tubes placed earlier. ANESTHESIA: Used 10 mL of 1% lidocaine. PROCEDURE IN DETAIL: The patient was placed in a supine position, and the area of the left the chest at the level of the 5th intercostal space and anterior axillary line was prepared in a sterile fashion and drapes were applied. Then, the area was locally anesthetized at that same site. A small tiny incision was made at the same level which is again at the anterior axillary line and 5th intercostal space. A 1.5 cm incision was actually made, and the subcutaneous fascia was dissected using the index finger and using the Shira forceps. Once the pleural space was entered, there was a gush of air and fluid that looked dark fluid in the left pleural space. Then, a 28 argyle chest tube was inserted pointing atypically. The tube was connected to the Pleur-Evac, and the chest tube was secured using the 0.0 Ethibond sutures. The procedure was well tolerated, no evidence of any immediate complications, chest x-ray showed evidence of a definite improvement in the left-sided pneumothorax. MMODL / IJN: [id number] /
--- NOTE | 2019-02-18 12:59 | P.PN ---
Subjective This is a 63 years old female with past medical history of congestive heart failure, coronary artery disease status post cardiac catheterization and stent placement. Patient presents with severe dyspnea, area she's been diagnosed with influenza a at urgent care parenchyma to the hospital. In the emergency room patient was found to be significantly dyspneic and hypoxic, and her blood pressure was on the low side. Patient eventually was intubated and transferred to the intensive care unit. Patient could not provide information so I was madi en from the chart. She has had oliguria, with lactic acidosis, acute renal failure. Chest x-ray showing left upper lobe infiltrate, with interstitial edema. Patient also has new elevated troponin for which software test manager has been consulted 02/18/2019 Patient remains in the ICU,chest x-ray this morning showing increased and the patient left side pneumothorax,patient has left chest thoravent placed this morning. With anolother thoraventhas to be placed againand eventually chest tube has to be placed with improvement in the pneumothorax. Input and help from cardiothoracic and pulmonary/crtical care team is appreciated.patient still tachycardic and on mechanical ventilation. Patient is also acidotic, and high lactic acid at 7.6. Patient remains on pressors to support his blood pressure. GI consult is appreciated, reevaluated the patient for coffee-ground emesis from NG tube rate hemoglobin stable, and as per the recommendation no need for endoscopic evaluation or therapy.patient is on Protonix twice a day review of systems: N/a Objective - Vital Signs Vital signs: Vital Signs Temp 98.1 F 02/18/19 12:00 Pulse 134 H 02/18/19 12:00 Resp 34 H 02/18/19 12:00 BP 100/59 02/18/19 11:30 Pulse Ox 90 L 02/18/19 12:00 Intake & Output 02/17/19 02/18/19 02/18/19 18:59 06:59 18:59 Intake Total 2590.588 2526.214 1302.491 Output Total 530 170 290 Balance 2060.588 2356.214 1012.491 Weight 103 kg Intake: IV 2480 2285 1294 Dextrose 5% in Water 1, 770 1110 675 000 ml @ 125 mls/hr IV . Q9H12M NI with Sodium Bicarb (1 Meq/ml) 150 ml Rx#:[id number] Sodium Chloride 0.9% 1, 150 000 ml @ 150 mls/hr IV . Q6H40M NI Rx#:[id number] Sodium Chloride 0.9% 1, 60 000 ml @ 20 mls/hr IV . Q24H NI Rx#:[id number] Sodium Chloride 0.9% 1, 1175 285 000 ml @ 20 mls/hr IV . Q24H NI Rx#:[id number] Sodium Chloride 0.9% 1, 1000 000 ml @ 999 mls/hr IV . Q1H1M STA Rx#:[id number] Vancomycin 1,750 mg In 500 334 Sodium Chloride 0.9% 500 ml 500 ml @ 167 mls/hr IVPB ONCE ONE Rx#: [id number] Intake, IV Titration 110.588 241.214 8.491 Amount Cisatracurium 200 mg In 4.944 Sodium Chloride 0.9% 180 ml @ 1 MCG/KG/MIN 6.18 mls/hr IV .Q24H NI Rx#: [id number] Norepinephrine 32 mg In 34.076 41.214 3.547 Sodium Chloride 0.9% 218 ml @ 0.05 MCG/KG/MIN 2. 233 mls/hr IV .Q24H NI Rx#:[id number] Propofol 1,000 mg In 76.512 200 Empty Bag 1 bag @ Titrate IV .Q0M [facility] Rx#: [id number] Output: Chest Tube Drainage 250 Chest Tube Left 250 Gastric Drainage 400 Urine 130 170 40 Other: Voiding Method Indwelling Catheter Indwelling Catheter ABP, PAP, CO, CI - Last Documented Arterial Blood Pressure 94/48 - Exam -GENERAL: The patient is intubated and sedated HEENT: Pupils are round and equally reacting to light. EOMI. No scleral icterus. No conjunctival pallor. Normocephalic, atraumatic. No pharyngeal erythema. No thyromegaly. CARDIOVASCULAR: S1 and S2 present. No murmurs, rubs, or gallops. -PULMONARY: Chest is bilateral harsh breath sounds, with scattered wheezing ABDOMEN: Soft, nontender, nondistended, normoactive bowel sounds. No palpable organomegaly. MUSCULOSKELETAL: No joint swelling or deformity. EXTREMITIES: No cyanosis, clubbing, or pedal edema. -NEUROLOGICAL:patient is sedated and intubated Gross neurological examination did not reveal any focal deficits. SKIN: No rashes. - Labs CBC & Chem 7: 02/18/19 04:15 02/18/19 04:15 Labs: Abnormal Lab Results - Last 24 Hours (Table) 02/17/19 02/17/19 02/17/19 Range/Units 12:37 13:22 14:36 WBC (3.8-10.6) k/uL Plt Count (150-450) k/uL Neutrophils # (Manual) (1.3-7.7) k/uL Lymphocytes # (Manual) (1.0-4.8) k/uL Monocytes # (Manual) (0-1.0) k/uL ABG pH 7.06 L* 7.12 L* (7.35-7.45) ABG pCO2 64 H 55 H (35-45) mmHg ABG pO2 270 H 80 L (83-108) mmHg ABG HCO3 18 L 18 L (21-25) mmol/L ABG Total CO2 (19-24) mmol/L ABG O2 Saturation 99.3 H (94-97) % Potassium (3.5-5.1) mmol/L Carbon Dioxide (22-30) mmol/L BUN (9-20) mg/dL Creatinine (0.66-1.25) mg/dL Glucose (74-99) mg/dL Plasma Lactic Acid Tra (0.7-2.0) mmol/L Calcium (8.4-10.2) mg/dL Phosphorus (2.5-4.5) mg/dL Troponin I 1.590 H* (0.000-0.034) ng/mL 02/17/19 02/17/19 02/18/19 Range/Units 20:07 22:30 04:15 WBC 16.2 H (3.8-10.6) k/uL Plt Count 111 L (150-450) k/uL Neutrophils # (Manual) 14.70 H (1.3-7.7) k/uL Lymphocytes # (Manual) 0.32 L (1.0-4.8) k/uL Monocytes # (Manual) 1.13 H (0-1.0) k/uL ABG pH 7.22 L (7.35-7.45) ABG pCO2 (35-45) mmHg ABG pO2 (83-108) mmHg ABG HCO3 15 L (21-25) mmol/L ABG Total CO2 17 L (19-24) mmol/L ABG O2 Saturation (94-97) % Potassium (3.5-5.1) mmol/L Carbon Dioxide (22-30) mmol/L BUN (9-20) mg/dL Creatinine (0.66-1.25) mg/dL Glucose (74-99) mg/dL Plasma Lactic Acid Tra 7.9 H* (0.7-2.0) mmol/L Calcium (8.4-10.2) mg/dL Phosphorus (2.5-4.5) mg/dL Troponin I (0.000-0.034) ng/mL 02/18/19 02/18/19 02/18/19 Range/Units 04:15 04:15 04:15 WBC (3.8-10.6) k/uL Plt Count (150-450) k/uL Neutrophils # (Manual) (1.3-7.7) k/uL Lymphocytes # (Manual) (1.0-4.8) k/uL Monocytes # (Manual) (0-1.0) k/uL ABG pH (7.35-7.45) ABG pCO2 (35-45) mmHg ABG pO2 (83-108) mmHg ABG HCO3 (21-25) mmol/L ABG Total CO2 (19-24) mmol/L ABG O2 Saturation (94-97) % Potassium 5.8 H (3.5-5.1) mmol/L Carbon Dioxide 14 L (22-30) mmol/L BUN 54 H (9-20) mg/dL Creatinine 5.34 H (0.66-1.25) mg/dL Glucose 162 H (74-99) mg/dL Plasma Lactic Acid Tra 7.6 H* (0.7-2.0) mmol/L Calcium 6.1 L* (8.4-10.2) mg/dL Phosphorus 6.0 H (2.5-4.5) mg/dL Troponin I 4.250 H* (0.000-0.034) ng/mL 02/18/19 02/18/19 02/18/19 Range/Units 07:03 08:51 11:32 WBC (3.8-10.6) k/uL Plt Count (150-450) k/uL Neutrophils # (Manual) (1.3-7.7) k/uL Lymphocytes # (Manual) (1.0-4.8) k/uL Monocytes # (Manual) (0-1.0) k/uL ABG pH 7.18 L* 7.11 L* 7.16 L* (7.35-7.45) ABG pCO2 48 H 64 H 67 H (35-45) mmHg ABG pO2 82 L 63 L 64 L (83-108) mmHg ABG HCO3 18 L 20 L (21-25) mmol/L ABG Total CO2 26 H (19-24) mmol/L ABG O2 Saturation 86.3 L 88.6 L (94-97) % Potassium (3.5-5.1) mmol/L Carbon Dioxide (22-30) mmol/L BUN (9-20) mg/dL Creatinine (0.66-1.25) mg/dL Glucose (74-99) mg/dL Plasma Lactic Acid Tra (0.7-2.0) mmol/L Calcium (8.4-10.2) mg/dL Phosphorus (2.5-4.5) mg/dL Troponin I (0.000-0.034) ng/mL Microbiology - Last 24 Hours (Table) 02/17/19 10:00 Urine Culture - Final Urine,Catheterized 02/17/19 12:54 Gram Stain - Preliminary Sputum Sputum Culture - Preliminary 02/16/19 19:00 Blood Culture - Preliminary Blood No Growth after 24 hours Assessment and Plan Assessment: Acute respiratory failure status post intubation Septic shock secondary to influenza infection and pneumonia Left-sided pneumothorax, need chest tube stress induced hematemesis, evaluated by GI team Acute renal failure with oliguria Lactic acidosis Elevated troponin, evaluated by software test manager Plan: This is a 63 years old female who presents because of septic shock, secondary to pneumonia and influenza infection, renal failure, elevated troponin. lactic acid Pulmonary/critical care unit, software test manager and print production associate, coil placer, cardiothoracic surgeon R following the patient. Patient to continue on antibiotics. Continue with aspirin. Patient is on steroids and IV fluids.. Python Web Developer recommended beta janice and echocardiogram.Labs and medication were reviewed.. Continue same treatment. Continue with symptomatic treatment. Resume home medication. Monitor lytes and vitals. DVT and GI prophylaxis. Further recommendations of the clinical course of the patient DVT prophylaxis: Subcutaneous Lovenox. Hemoglobin stable and patient is high- risk for thrombosis. Keep monitoring GI Prophylaxis: Protonix Prognosis is guarded
--- NOTE | 2019-02-18 13:12 | P.PN ---
Subjective Progress Note Date: 02/18/19 Seen and examined for the follow-up of acute kidney injury. Blood pressures are low currently on 35 mics of Levophed. And getting started on vasopressin as well. On 100% FiO2 and 12 of PEEP. Urine output of 290 ML's since morning Objective - Vital Signs Vital signs: Vital Signs Temp 98.1 F 02/18/19 12:00 Pulse 134 H 02/18/19 12:00 Resp 34 H 02/18/19 12:00 BP 100/59 02/18/19 11:30 Pulse Ox 90 L 02/18/19 12:00 Intake & Output 02/17/19 02/18/19 02/18/19 18:59 06:59 18:59 Intake Total 2590.588 2526.214 1302.491 Output Total 530 170 290 Balance 2060.588 2356.214 1012.491 Weight 103 kg Intake: IV 2480 2285 1294 Dextrose 5% in Water 1, 770 1110 675 000 ml @ 125 mls/hr IV . Q9H12M NI with Sodium Bicarb (1 Meq/ml) 150 ml Rx#:[id number] Sodium Chloride 0.9% 1, 150 000 ml @ 150 mls/hr IV . Q6H40M NI Rx#:[id number] Sodium Chloride 0.9% 1, 60 000 ml @ 20 mls/hr IV . Q24H NI Rx#:[id number] Sodium Chloride 0.9% 1, 1175 285 000 ml @ 20 mls/hr IV . Q24H NI Rx#:[id number] Sodium Chloride 0.9% 1, 1000 000 ml @ 999 mls/hr IV . Q1H1M STA Rx#:[id number] Vancomycin 1,750 mg In 500 334 Sodium Chloride 0.9% 500 ml 500 ml @ 167 mls/hr IVPB ONCE ONE Rx#: [id number] Intake, IV Titration 110.588 241.214 8.491 Amount Cisatracurium 200 mg In 4.944 Sodium Chloride 0.9% 180 ml @ 1 MCG/KG/MIN 6.18 mls/hr IV .Q24H NI Rx#: [id number] Norepinephrine 32 mg In 34.076 41.214 3.547 Sodium Chloride 0.9% 218 ml @ 0.05 MCG/KG/MIN 2. 233 mls/hr IV .Q24H NI Rx#:[id number] Propofol 1,000 mg In 76.512 200 Empty Bag 1 bag @ Titrate IV .Q0M NI Rx#: [id number] Output: Chest Tube Drainage 250 Chest Tube Left 250 Gastric Drainage 400 Urine 130 170 40 Other: Voiding Method Indwelling Catheter Indwelling Catheter ABP, PAP, CO, CI - Last Documented Arterial Blood Pressure 94/48 - Exam No acute distress currently intubated on a ventilator S1-S2 heard Decreased breath sounds on the left Left-sided chest tube. Edema. - Labs CBC & Chem 7: 02/18/19 04:15 02/18/19 04:15 Labs: Abnormal Lab Results - Last 24 Hours (Table) 02/17/19 02/17/19 02/17/19 Range/Units 13:22 14:36 20:07 WBC (3.8-10.6) k/uL Plt Count (150-450) k/uL Neutrophils # (Manual) (1.3-7.7) k/uL Lymphocytes # (Manual) (1.0-4.8) k/uL Monocytes # (Manual) (0-1.0) k/uL ABG pH 7.12 L* 7.22 L (7.35-7.45) ABG pCO2 55 H (35-45) mmHg ABG pO2 80 L (83-108) mmHg ABG HCO3 18 L 15 L (21-25) mmol/L ABG Total CO2 17 L (19-24) mmol/L ABG O2 Saturation (94-97) % Potassium (3.5-5.1) mmol/L Carbon Dioxide (22-30) mmol/L BUN (9-20) mg/dL Creatinine (0.66-1.25) mg/dL Glucose (74-99) mg/dL Plasma Lactic Acid Tra (0.7-2.0) mmol/L Calcium (8.4-10.2) mg/dL Phosphorus (2.5-4.5) mg/dL Troponin I 1.590 H* (0.000-0.034) ng/mL 02/17/19 02/18/19 02/18/19 Range/Units 22:30 04:15 04:15 WBC 16.2 H (3.8-10.6) k/uL Plt Count 111 L (150-450) k/uL Neutrophils # (Manual) 14.70 H (1.3-7.7) k/uL Lymphocytes # (Manual) 0.32 L (1.0-4.8) k/uL Monocytes # (Manual) 1.13 H (0-1.0) k/uL ABG pH (7.35-7.45) ABG pCO2 (35-45) mmHg ABG pO2 (83-108) mmHg ABG HCO3 (21-25) mmol/L ABG Total CO2 (19-24) mmol/L ABG O2 Saturation (94-97) % Potassium 5.8 H (3.5-5.1) mmol/L Carbon Dioxide 14 L (22-30) mmol/L BUN 54 H (9-20) mg/dL Creatinine 5.34 H (0.66-1.25) mg/dL Glucose 162 H (74-99) mg/dL Plasma Lactic Acid Tra 7.9 H* (0.7-2.0) mmol/L Calcium 6.1 L* (8.4-10.2) mg/dL Phosphorus 6.0 H (2.5-4.5) mg/dL Troponin I (0.000-0.034) ng/mL 02/18/19 02/18/19 02/18/19 Range/Units 04:15 04:15 07:03 WBC (3.8-10.6) k/uL Plt Count (150-450) k/uL Neutrophils # (Manual) (1.3-7.7) k/uL Lymphocytes # (Manual) (1.0-4.8) k/uL Monocytes # (Manual) (0-1.0) k/uL ABG pH 7.18 L* (7.35-7.45) ABG pCO2 48 H (35-45) mmHg ABG pO2 82 L (83-108) mmHg ABG HCO3 18 L (21-25) mmol/L ABG Total CO2 (19-24) mmol/L ABG O2 Saturation (94-97) % Potassium (3.5-5.1) mmol/L Carbon Dioxide (22-30) mmol/L BUN (9-20) mg/dL Creatinine (0.66-1.25) mg/dL Glucose (74-99) mg/dL Plasma Lactic Acid Tra 7.6 H* (0.7-2.0) mmol/L Calcium (8.4-10.2) mg/dL Phosphorus (2.5-4.5) mg/dL Troponin I 4.250 H* (0.000-0.034) ng/mL 02/18/19 02/18/19 Range/Units 08:51 11:32 WBC (3.8-10.6) k/uL Plt Count (150-450) k/uL Neutrophils # (Manual) (1.3-7.7) k/uL Lymphocytes # (Manual) (1.0-4.8) k/uL Monocytes # (Manual) (0-1.0) k/uL ABG pH 7.11 L* 7.16 L* (7.35-7.45) ABG pCO2 64 H 67 H (35-45) mmHg ABG pO2 63 L 64 L (83-108) mmHg ABG HCO3 20 L (21-25) mmol/L ABG Total CO2 26 H (19-24) mmol/L ABG O2 Saturation 86.3 L 88.6 L (94-97) % Potassium (3.5-5.1) mmol/L Carbon Dioxide (22-30) mmol/L BUN (9-20) mg/dL Creatinine (0.66-1.25) mg/dL Glucose (74-99) mg/dL Plasma Lactic Acid Tra (0.7-2.0) mmol/L Calcium (8.4-10.2) mg/dL Phosphorus (2.5-4.5) mg/dL Troponin I (0.000-0.034) ng/mL Microbiology - Last 24 Hours (Table) 02/17/19 10:00 Urine Culture - Final Urine,Catheterized 02/17/19 12:54 Gram Stain - Preliminary Sputum Sputum Culture - Preliminary 02/16/19 19:00 Blood Culture - Preliminary Blood No Growth after 24 hours Assessment and Plan Assessment: #1 acute kidney injury, oliguric secondary to hemodynamic ATN from hypotension with sepsis, unknown baseline creatinine. #2 Anion gap Metabolic acidosis with respiratory acidosis. #3 vent dependent respiratory failure #4 shock on pressors #5 hyperkalemia #6 pneumothorax status post chest tube Plan: #1 repeat BMP, if electrolytes getting worse might need hemodialysis (sled) #2 continue with bicarb drip #3 treat hyperkalemia medically. Already got Lasix in the morning. #4 antibiotics for sepsis #5 c/w pressors to maintain hemodynamics #6 avoid nephrotoxic agents and hypotensive episodes. Discussed with the family at length, based on current hemodynamics might not tolerated dialysis. If renal function and electrolytes continued to worsen and electrolytes will try sled.
[2019-02-18 13:17] LABS: Glucose,Whole Blood 146 mg/dL (75-99)
[2019-02-18 13:33] LABS: Magnesium 1.9 mg/dL (1.6-2.3)
[2019-02-18 13:47] LABS: Calcium 5.5 mg/dL (8.4-10.2)
[2019-02-18 13:56] LABS: Ionized Calcium 3.4 mg/dL (4.5-5.3)
[2019-02-18] MEDS ORDERED: CALCIUM GLUCONATE 1 GM in SODIUM CHLORIDE 0.9% 100 ML IVPB ONE (15:00)
[2019-02-18 15:16] LABS: ABG Base Excess -4.5 mmol/L; ABG HCO3 25 mmol/L (21-25); ABG Oxygen Saturation 83.2 % (94-97); ABG TCO2 27 mmol/L (19-24)
--- NOTE | 2019-02-18 15:29 | XR ---
EXAMINATION TYPE: XR chest 1V portable DATE OF EXAM: 02/18/2019 CLINICAL HISTORY: Difficulty breathing progress study. TECHNIQUE: Single AP portable upright view of the chest is obtained. COMPARISON: Chest x-ray from earlier the same day. FINDINGS: Endotracheal tube, enteric tube and right IJ CVC are stable in position. Left-sided thoracostomy tube is again seen projecting over the left midlung. Small right pleural effusion with associated right basilar atelectasis. Pulmonary vascular congestion is seen diffusely. Osseous structures are unchanged. There is slight increase in the size of the lef t sided pneumothorax compared with the prior study. IMPRESSION: 1. Stable position of lines and tubes. 2. Slight interval increase in size of left pleural pneumothorax.
[2019-02-18] MEDS: NICOTINE 21MG/24HR PATCH TRANSDERM SCH (15:37)
[2019-02-18] MEDS: HYDROmorphone 1 MG/ML 1 ML SYRINGE IVP SCH ×3 (15:37→22:13)
[2019-02-18] MEDS ORDERED: ACETAMINOPHEN IV (For NPO) 1,000 MG in EMPTY BAG 1 BAG IVPB ONE (16:14)
[2019-02-18 17:17] LABS: ABG PCO2 74 mmHg (35-45); ABG PH 7.13 (7.35-7.45)
[2019-02-18 17:18] LABS: ABG PO2 56 mmHg (83-108)
[2019-02-18] MEDS: LEVOFLOXACIN 250MG-D5W PMX 250 MG in DEXTROSE/WATER 1 50ML.BAG IVPB SCH (17:52)
[2019-02-18] MEDS ORDERED: ACETAMINOPHEN SUPPOSITORY 650 MG SUPP RECTAL STA (18:10)
[2019-02-18 19:09] LABS: ABG Base Excess -3.3 mmol/L; ABG HCO3 23 mmol/L (21-25); ABG Oxygen Saturation 99.6 % (94-97); ABG PCO2 44 mmHg (35-45); ABG PH 7.32 (7.35-7.45); ABG PO2 235 mmHg (83-108); ABG TCO2 24 mmol/L (19-24)
[2019-02-18 19:28] LABS: Magnesium 1.7 mg/dL (1.6-2.3); Phosphorus 4.9 mg/dL (2.5-4.5); Potassium 5.6 mmol/L (3.5-5.1)
[2019-02-18 19:31] LABS: Calcium 4.9 mg/dL (8.4-10.2)
[2019-02-18] MEDS: NOREPINEPHRINE 32 MG in SODIUM CHLORIDE 0.9% 218 ML IV SCH (22:17)
--- NOTE | 2019-02-18 22:20 | P.CONS ---
History of Present Illness - Reason for Consult Consult date: 02/18/19 - Chief Complaint Shortness of breath - History of Present Illness 63-year-old male who has a history of tobacco use, coronary artery disease and congestive heart failure with the family relates is medically disabled because of his cardiac disease. He was ill earlier this week when he w ent to the walk-in clinic on Wednesday at that point in time was found to have evidence of fever and chest congestion. Influenza testing was positive for influenza a the patient was started on Tamiflu. The patient however then developed progressive decline of his status and on the presented to the emergency center. At that point in time he was profoundly ill with hypoxia, acidosis, and renal failure. He simply was admitted for intensive care unit he was intubated and has been sedated and mechanically ventilated. He is without significant hypotension is required multiple vasopressor agents that include Levophed and vasopressin, and has been treated with stress doses of steroids. The patient had worsening of his status and with his worsening pneumonia and refractory sepsis the infectious diseases consultation was requested. The patient's family is present. Relates that he has been with a declining medical status for some time but became acutely ill recently. None of the other family members are ill at this time. As noted the patient is intubated, sedated and mechanically ventilated and paralyzed further information from the family. The patient's status did worsen with a spontaneous pneumothorax which resulted in placement of two thoaravent devices which did not resolve the pneumothorax and constantly a chest tube was applied which has resolved most of the pneumothorax. As noted despite this remains hemodynamically unstable. Review of Systems ROS unobtainable: due to endotracheal tube Past Medical History Past Medical History: Coronary Artery Disease (CAD), Heart Failure, Hyperlip idemia, Hypertension Additional Past Medical History / Comment(s): Peripheral neuropathy. 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 History of Any Multi-Drug Resistant Organisms: None Reported Past Surgical History: Heart Catheterization With Stent Additional Past Surgical History / Comment(s): NOSE, BRAIN SURGERY, 13 right EYE surgeries related to trigeminal nerve palsy per the patient's . He also had an abdominal surgery when he was a teenager. Past Anesthesia/Blood Transfusion Reactions: No Reported Reaction Date of Last Stent Placement:: Unknown Past Psychological History: No Psychological Hx Reported Additional Psychological History / Comment(s): Medically disabled. Was in the . No recent travel. No pets in the home. Heavy tobacco use. No current alcohol or recreational drug use Smoking Status: Current every day smoker Past Alcohol Use History: None Reported Past Drug Use History: None Reported - Past Family History Father Family Medical History: Cancer (Cancer of the stomach) Mother Additional Family Medical History / Comment(s): Abdominal aortic aneurysm Medications and Allergies Home Medications and Allergies Comment(s): Current Medications Albuterol Sulfate (Ventolin Nebulized) 2.5 mg INHALATION RT-Q4H PRN PRN Reason: Shortness Of Breath Or Wheezing Last Admin: 02/17/19 03:23 Dose: 2.5 mg Documented by: Albuterol/Ipratropium (Duoneb 0.5 Mg-3 Mg/3 Ml Soln) 3 ml INHALATION RT-Q4H [facility] Last Admin: 02/18/19 19:30 Dose: 3 ml Documented by: Artificial Tears (Artificial Tear Drops) 2 drops BOTH EYES Q4HR [facility] Last Admin: 02/18/19 16:38 Dose: 2 drops Documented by: Aspirin (Aspirin) 81 mg PO DAILY [facility] Last Admin: 02/18/19 11:16 Dose: 81 mg Documented by: Chlorhexidine Gluconate (Peridex) 15 ml MUCOUS MEM BID [facility] Last Admin: 02/18/19 11:16 Dose: 15 ml Documented by: Enoxaparin Sodium (Lovenox) 30 mg SQ DAILY [facility] Last Admin: 02/18/19 11:17 Dose: 30 mg Documented by: Hydrocortisone Sodium Succinate (Solu-Cortef) 100 mg IV Q8H [facility] Last Admin: 02/18/19 11:52 Dose: 100 mg Documented by: Hydromorphone HCl (Dilaudid) 0.5 mg IVP Q3HR [facility] Norepinephrine Bitartrate 32 (mg/ Sodium Chloride) 250 mls @ 2.233 mls/hr IV .Q24H [facility]; Protocol Last Titration: 02/18/19 19:13 Dose: Infused Documented by: Sodium Bicarbonate 150 ml/ (Dextrose/Water) 1,150 mls @ 125 mls/hr IV .Q9H12M [facility] Last Admin: 02/18/19 13:17 Dose: 125 mls/hr Documented by: Propofol 1,000 mg/ IV Solution 100 mls @ 0 mls/hr IV .Q0M [facility]; Protocol Last Admin: 02/18/19 16:39 Dose: 45 mcg/kg/min, 27.81 mls/hr Documented by: Sodium Chloride (Saline 0.9%) 1,000 mls @ 20 mls/hr IV .Q24H [facility] Last Admin: 02/18/19 11:52 Dose: 20 mls/hr Documented by: Vasopressin 60 unit/ Sodium (Chloride) 153 mls @ 4.59 mls/hr IV .Q24H [facility] Last Admin: 02/18/19 12:49 Dose: 4.59 mls/hr Documented by: Cisatracurium Besylate 200 mg/ (Sodium Chloride) 200 mls @ 6.18 mls/hr IV .Q24H [facility]; Protocol Last Titration: 02/18/19 16:00 Dose: 2 mcg/kg/min, 12.36 mls/hr Documented by: Ceftriaxone Sodium 2 gm/ (Sodium Chloride) 50 mls @ 100 mls/hr IVPB Q24H [facility] Clindamycin Phosphate 900 mg/ (Dextrose/Water) 56 mls @ 50 mls/hr IVPB Q8HR [facility] Lorazepam (Ativan) 1 mg IV Q4HR PRN PRN Reason: Anxiety Last Admin: 02/17/19 09:13 Dose: 1 mg Documented by: Miscellaneous Information (Pneumonia Protocol Utilized) 1 each PO ONCE PRN PRN Reason: Per Protocol Miscellaneous Information (Magnesium Per Protocol) 1 each MISCELLANE DAILY PRN; Protocol PRN Reason: Per Protocol Nicotine (Habitrol 21mg/24hr Patch) 1 patch TRANSDERM DAILY [facility] Last Admin: 02/18/19 15:37 Dose: 1 patch Documented by: Ondansetron HCl (Zofran) 4 mg IVP Q6HR PRN PRN Reason: Nausea And Vomiting Last Admin: 02/16/19 23:18 Dose: 4 mg Documented by: Oseltamivir Phosphate (Tamiflu) 30 mg PO HS [facility] Stop: 02/20/19 21:01 Last Admin: 02/17/19 20:32 Dose: 30 mg Documented by: Pantoprazole Sodium (Protonix) 40 mg IVP BID [facility] Last Admin: 02/18/19 11:17 Dose: 40 mg Documented by: Home Medications Medication Instructions Recorded Confirmed Type Aspirin EC [Ecotrin] 325 mg PO DAILY 02/17/19 02/17/19 History Benzonatate [Benzonatate Perle] 200 mg PO TID PRN 02/17/19 02/17/19 History Clopidogrel [Plavix] 75 mg PO DAILY 02/17/19 02/17/19 History Enalapril [Vasotec] 10 mg PO BID 02/17/19 02/17/19 History Evolocumab [Repatha Sureclick] 140 mg SQ Q14D 02/17/19 02/17/19 History Folic Acid 1 mg PO TID 02/17/19 02/17/19 History Gabapentin 600 mg PO DAILY PRN 02/17/19 02/17/19 History Metoprolol Succinate (ER) [Toprol 100 mg PO DAILY 02/17/19 02/17/19 History Xl] Nitroglycerin Sl Tabs [Nitrostat] 0.4 mg SUBLINGUAL Q5M PRN 02/17/19 02/17/19 History Allergies Allergy/AdvReac Type Severity Reaction Status Date / Time atorvastatin [From Lipitor] Allergy Unknown Verified 02/17/19 10:41 Penicillins Allergy Unknown Verified 02/17/19 10:41 pravastatin Allergy Unknown Verified 02/17/19 10:41 rosuvastatin [From Crestor] Allergy Unknown Verified 02/17/19 10:41 simvastatin Allergy Unknown Verified 02/17/19 10:41 Physical Exam Vitals: Vital Signs Temp Pulse Resp BP Pulse Ox 02/18/19 19:42 126 H 02/18/19 19:32 125 H 02/18/19 19:00 126 H 40 H 56/21 97 02/18/19 18:45 125 H 40 H 63/46 98 02/18/19 18:30 124 H 40 H 98 02/18/19 18:15 124 H 40 H 106/56 98 02/18/19 18:00 103.1 F H 123 H 31 H 98 02/18/19 17:45 124 H 40 H 108/89 98 02/18/19 17:30 124 H 40 H 98 02/18/19 17:15 124 H 40 H 104/45 98 02/18/19 17:00 122 H 40 H 98 02/18/19 16:45 124 H 40 H 98 02/18/19 16:30 124 H 40 H 98 02/18/19 16:15 124 H 40 H 95/68 97 02/18/19 16:00 12.8 F L 124 H 40 H 100/59 98 02/18/19 15:46 126 H 02/18/19 15:45 125 H 40 H 107/74 98 02/18/19 15:38 126 H 02/18/19 15:30 128 H 40 H 110/51 95 02/18/19 15:15 130 H 36 H 85 L 02/18/19 15:00 130 H 36 H 112/61 85 L 02/18/19 14:45 130 H 36 H 115/58 87 L 02/18/19 14:30 129 H 36 H 103/73 88 L 02/18/19 14:15 129 H 36 H 100/57 88 L 02/18/19 14:00 129 H 36 H 89 L 02/18/19 13:45 130 H 36 H 106/48 88 L 02/18/19 13:30 129 H 36 H 87/54 89 L 02/18/19 13:15 130 H 36 H 87/54 89 L 02/18/19 13:00 133 H 36 H 88 L 02/18/19 12:45 133 H 36 H 89/57 89 L 02/18/19 12:30 134 H 36 H 89 L 02/18/19 12:15 134 H 36 H 93/60 89 L 02/18/19 12:00 98.1 F 134 H 34 H 90 L 02/18/19 11:45 133 H 34 H 91 L 02/18/19 11:30 133 H 34 H 100/59 91 L 02/18/19 11:17 134 H 02/18/19 11:15 134 H 34 H 91 L 02/18/19 11:00 134 H 34 H 90 L 02/18/19 10:45 135 H 34 H 90/46 89 L 02/18/19 10:30 137 H 34 H 97/57 88 L 02/18/19 10:15 138 H 34 H 89 L 02/18/19 10:00 138 H 34 H 88 L 02/18/19 09:45 138 H 34 H 97/65 88 L 02/18/19 09:30 138 H 34 H 100/64 89 L 02/18/19 09:15 138 H 34 H 101/65 87 L 02/18/19 09:00 140 H 34 H 103/62 88 L 02/18/19 08:45 140 H 34 H 104/64 88 L 02/18/19 08:30 140 H 30 H 107/66 89 L 02/18/19 08:15 138 H 30 H 114/63 90 L 02/18/19 08:00 98.2 F 137 H 30 H 112/65 90 L 02/18/19 07:52 135 H 02/18/19 07:45 135 H 30 H 102/61 92 L 02/18/19 07:38 135 H 02/18/19 07:30 135 H 30 H 102/62 93 L 02/18/19 07:15 134 H 30 H 111/55 94 L 02/18/19 07:00 130 H 30 H 95/61 95 02/18/19 06:45 130 H 27 H 99/61 93 L 02/18/19 06:30 135 H 26 H 96/61 89 L 02/18/19 06:15 134 H 26 H 80/66 89 L 02/18/19 06:00 133 H 26 H 89/75 90 L 02/18/19 05:00 100.6 F H 128 H 25 H 92/63 93 L 02/18/19 04:00 100.6 F H 134 H 27 H 105/68 91 L 02/18/19 03:18 129 H 02/18/19 03:08 126 H 02/18/19 03:00 100.6 F H 128 H 26 H 95/62 88 L 02/18/19 02:00 100.6 F H 130 H 26 H 113/56 88 L 02/18/19 01:00 101.4 F H 133 H 26 H 100/72 91 L 02/18/19 00:00 101.6 F H 134 H 26 H 101/60 91 L 02/17/19 23:21 131 H 02/17/19 23:10 115 H 02/17/19 23:00 101.8 F H 129 H 26 H 91 L Intake and Output 02/18/19 02/18/19 02/18/19 06:59 14:59 22:59 Intake Total 1999 8253.904 8741.716 Output Total 100 295 248 Balance 1899 1562.754 989.716 Intake: IV 1899 1757.18 855.90 Calcium Gluconate 1 gm In 100 Sodium Chloride 0.9% 100 ml @ 100 mls/hr IVPB ONCE ONE Rx#:[id number] Cisatracurium 200 mg In 6.18 30.90 Sodium Chloride 0.9% 180 ml @ 1 MCG/KG/MIN 6.18 mls/hr IV .Q24H [facility] Rx#: [id number] Dextrose 5% in Water 1, 800 925 625 000 ml @ 125 mls/hr IV . Q9H12M NI with Sodium Bicarb (1 Meq/ml) 150 ml Rx#:[id number] Sodium Chloride 0.9% 1, 1100 325 100 000 ml @ 20 mls/hr IV . Q24H [facility] Rx#:[id number] Vancomycin 1,750 mg In 501 Sodium Chloride 0.9% 500 ml 500 ml @ 167 mls/hr IVPB ONCE ONE Rx#: [id number] Intake, IV Titration 100 100.574 381.816 Amount ACETAMINOPHEN IV (For NPO 100 ) 1,000 mg In Empty Bag 1 bag @ 400 mls/hr IVPB ONCE ONE Rx#:[id number] Cisatracurium 200 mg In 17.510 40.17 Sodium Chloride 0.9% 180 ml @ 1 MCG/KG/MIN 6.18 mls/hr IV .Q24H [facility] Rx#: [id number] Levofloxacin 250Mg-D5w 50 Pmx 250 mg In Dextrose/ Water 1 50ml.bag @ 50 mls /hr IVPB Q24H [facility] Rx#: [id number] Norepinephrine 32 mg In 83.064 91.646 Sodium Chloride 0.9% 218 ml @ 0.05 MCG/KG/MIN 2. 233 mls/hr IV .Q24H [facility] Rx#:[id number] Propofol 1,000 mg In 100 100 Empty Bag 1 bag @ Titrate IV .Q0M [facility] Rx#: [id number] Output: Chest Tube Drainage 250 120 Chest Tube Left 250 120 Gastric Drainage 100 Urine 100 45 28 Other: Voiding Method Indwelling Catheter Indwelling Catheter Indwelling Catheter Weight 103 kg ABP, PAP, CO, CI - Last 8 Hours Arterial Blood Pressure 81/63 Arterial Blood Pressure 80/62 Arterial Blood Pressure 78/58 Arterial Blood Pressure 70/57 Arterial Blood Pressure 72/58 Arterial Blood Pressure 76/60 Arterial Blood Pressure 78/60 Arterial Blood Pressure 81/62 Arterial Blood Pressure 86/66 Arterial Blood Pressure 82/63 Arterial Blood Pressure 78/61 Arterial Blood Pressure 81/62 Arterial Blood Pressure 74/57 Arterial Blood Pressure 76/56 Arterial Blood Pressure 90/56 Arterial Blood Pressure 77/48 Arterial Blood Pressure 86/56 Arterial Blood Pressure 87/55 Arterial Blood Pressure 85/54 Arterial Blood Pressure 85/53 63-year-old male HEENT: Anicteric conjunctiva are pale but moist nasal mucosa grossly intact without significant lesions, there is no thrush noted around the endotracheal tube. No evidence of bleeding Neck: The neck is supple without significant lymphadenopathy or thyromegaly. Lungs: There is symmetrical air entry however very coarse bronchial sounds are heard in all lung garsia and still amphoric sounds in the anterior aspect of the left chest where the Heart: Tachycardic no murmur is noted Abdomen: Abdomen has few bowel sounds, it is soft minimally distended and can palpate no mass or organomegaly Extremities: The extremities have some generalized edema, hands and feet are cool to touch mild bluish discoloration is noted no necrosis or ulcerations are seen Neuro: Sedated paralyzed mechanically ventilated Results CBC & Chem 7: 02/18/19 04:15 02/18/19 16:20 Labs: Abnormal Lab Results - Last 24 Hours (Table) 02/17/19 02/18/19 02/18/19 Range/Units 22:30 04:15 04:15 WBC 16.2 H (3.8-10.6) k/uL Plt Count 111 L (150-450) k/uL Neutrophils # (Manual) 14.70 H (1.3-7.7) k/uL Lymphocytes # (Manual) 0.32 L (1.0-4.8) k/uL Monocytes # (Manual) 1.13 H (0-1.0) k/uL ABG pH (7.35-7.45) ABG pCO2 (35-45) mmHg ABG pO2 (83-108) mmHg ABG HCO3 (21-25) mmol/L ABG Total CO2 (19-24) mmol/L ABG O2 Saturation (94-97) % Potassium 5.8 H (3.5-5.1) mmol/L Chloride (98-107) mmol/L Carbon Dioxide 14 L (22-30) mmol/L BUN 54 H (9-20) mg/dL Creatinine 5.34 H (0.66-1.25) mg/dL Glucose 162 H (74-99) mg/dL POC Glucose (mg/dL) (75-99) mg/dL Plasma Lactic Acid Tra 7.9 H* (0.7-2.0) mmol/L Calcium 6.1 L* (8.4-10.2) mg/dL Ionized Calcium Ann (4.5-5.3) mg/dL Phosphorus 6.0 H (2.5-4.5) mg/dL Troponin I (0.000-0.034) ng/mL 02/18/19 02/18/19 02/18/19 Range/Units 04:15 04:15 07:03 WBC (3.8-10.6) k/uL Plt Count (150-450) k/uL Neutrophils # (Manual) (1.3-7.7) k/uL Lymphocytes # (Manual) (1.0-4.8) k/uL Monocytes # (Manual) (0-1.0) k/uL ABG pH 7.18 L* (7.35-7.45) ABG pCO2 48 H (35-45) mmHg ABG pO2 82 L (83-108) mmHg ABG HCO3 18 L (21-25) mmol/L ABG Total CO2 (19-24) mmol/L ABG O2 Saturation (94-97) % Potassium (3.5-5.1) mmol/L Chloride (98-107) mmol/L Carbon Dioxide (22-30) mmol/L BUN (9-20) mg/dL Creatinine (0.66-1.25) mg/dL Glucose (74-99) mg/dL POC Glucose (mg/dL) (75-99) mg/dL Plasma Lactic Acid Tra 7.6 H* (0.7-2.0) mmol/L Calcium (8.4-10.2) mg/dL Ionized Calcium Ann (4.5-5.3) mg/dL Phosphorus (2.5-4.5) mg/dL Troponin I 4.250 H* (0.000-0.034) ng/mL 02/18/19 02/18/19 02/18/19 Range/Units 08:51 11:32 13:00 WBC (3.8-10.6) k/uL Plt Count (150-450) k/uL Neutrophils # (Manual) (1.3-7.7) k/uL Lymphocytes # (Manual) (1.0-4.8) k/uL Monocytes # (Manual) (0-1.0) k/uL ABG pH 7.11 L* 7.16 L* (7.35-7.45) ABG pCO2 64 H 67 H (35-45) mmHg ABG pO2 63 L 64 L (83-108) mmHg ABG HCO3 20 L (21-25) mmol/L ABG Total CO2 26 H (19-24) mmol/L ABG O2 Saturation 86.3 L 88.6 L (94-97) % Potassium 6.0 H (3.5-5.1) mmol/L Chloride (98-107) mmol/L Carbon Dioxide (22-30) mmol/L BUN 66 H (9-20) mg/dL Creatinine 5.64 H (0.66-1.25) mg/dL Glucose 153 H (74-99) mg/dL POC Glucose (mg/dL) (75-99) mg/dL Plasma Lactic Acid Tra (0.7-2.0) mmol/L Calcium 5.5 L* (8.4-10.2) mg/dL Ionized Calcium Ann 3.4 L* (4.5-5.3) mg/dL Phosphorus 7.0 H (2.5-4.5) mg/dL Troponin I (0.000-0.034) ng/mL 02/18/19 02/18/19 02/18/19 Range/Units 13:03 15:12 16:20 WBC (3.8-10.6) k/uL Plt Count (150-450) k/uL Neutrophils # (Manual) (1.3-7.7) k/uL Lymphocytes # (Manual) (1.0-4.8) k/uL Monocytes # (Manual) (0-1.0) k/uL ABG pH 7.13 L* (7.35-7.45) ABG pCO2 74 H* (35-45) mmHg ABG pO2 56 L* (83-108) mmHg ABG HCO3 (21-25) mmol/L ABG Total CO2 27 H (19-24) mmol/L ABG O2 Saturation 83.2 L (94-97) % Potassium 5.6 H (3.5-5.1) mmol/L Chloride 108 H (98-107) mmol/L Carbon Dioxide 19 L (22-30) mmol/L BUN 61 H (9-20) mg/dL Creatinine 5.58 H (0.66-1.25) mg/dL Glucose 155 H (74-99) mg/dL POC Glucose (mg/dL) 146 H (75-99) mg/dL Plasma Lactic Acid Tra (0.7-2.0) mmol/L Calcium 4.9 L* (8.4-10.2) mg/dL Ionized Calcium Ann 3.0 L* (4.5-5.3) mg/dL Phosphorus 4.9 H (2.5-4.5) mg/dL Troponin I (0.000-0.034) ng/mL 02/18/19 Range/Units 19:04 WBC (3.8-10.6) k/uL Plt Count (150-450) k/uL Neutrophils # (Manual) (1.3-7.7) k/uL Lymphocytes # (Manual) (1.0-4.8) k/uL Monocytes # (Manual) (0-1.0) k/uL ABG pH 7.32 L (7.35-7.45) ABG pCO2 (35-45) mmHg ABG pO2 235 H (83-108) mmHg ABG HCO3 (21-25) mmol/L ABG Total CO2 (19-24) mmol/L ABG O2 Saturation 99.6 H (94-97) % Potassium (3.5-5.1) mmol/L Chloride (98-107) mmol/L Carbon Dioxide (22-30) mmol/L BUN (9-20) mg/dL Creatinine (0.66-1.25) mg/dL Glucose (74-99) mg/dL POC Glucose (mg/dL) (75-99) mg/dL Plasma Lactic Acid Tra (0.7-2.0) mmol/L Calcium (8.4-10.2) mg/dL Ionized Calcium Ann (4.5-5.3) mg/dL Phosphorus (2.5-4.5) mg/dL Troponin I (0.000-0.034) ng/mL Microbiology - Last 24 Hours (Table) 02/16/19 19:00 Blood Culture - Preliminary Blood No Growth after 48 hours 02/18/19 11:45 Body Fluid Culture - Preliminary Pleural Fluid 02/17/19 12:54 Gram Stain - Preliminary Sputum Sputum Culture - Preliminary Strep pyogenes (grp a) 02/17/19 10:00 Urine Culture - Final Urine,Catheterized Laboratory Results WBC 16.2 k/uL (3.8-10.6) H 02/18/19 04:15 RBC 4.62 m/uL (4.30-5.90) 02/18/19 04:15 Hgb 15.2 gm/dL (13.0-17.5) 02/18/19 04:15 Hct 46.1 % (39.0-53.0) 02/18/19 04:15 MCV 99.8 fL (80.0-100.0) 02/18/19 04:15 MCH 32.9 pg (25.0-35.0) 02/18/19 04:15 MCHC 32.9 g/dL (31.0-37.0) 02/18/19 04:15 RDW 14.2 % (11.5-15.5) 02/18/19 04:15 Plt Count 111 k/uL (150-450) L 02/18/19 04:15 Neutrophils % (Manual) 67 % 02/18/19 04:15 Band Neutrophils % 24 % 02/18/19 04:15 Lymphocytes % (Manual) 2 % 02/18/19 04:15 Monocytes % (Manual) 7 % 02/18/19 04:15 Metamyelocytes % 2 % 02/17/19 04:20 Myelocytes % 4 % 02/16/19 19:00 Neutrophils # (Manual) 14.70 k/uL (1.3-7.7) H 02/18/19 04:15 Lymphocytes # (Manual) 0.32 k/uL (1.0-4.8) L 02/18/19 04:15 Monocytes # (Manual) 1.13 k/uL (0-1.0) H 02/18/19 04:15 Metamyelocytes # (Man) 0.22 k/uL (0) H 02/17/19 04:20 Myelocytes # (Manual) 0.53 k/uL (0) H 02/16/19 19:00 Nucleated RBCs 0 /100 WBC (0-0) 02/18/19 04:15 Manual Slide Review Performed 02/18/19 04:15 Toxic Granulation Present 02/17/19 04:20 Toxic Vacuolation Present 02/18/19 04:15 Large Platelets Present 02/16/19 19:00 Macrocytosis Slight 02/16/19 19:00 PT 10.9 sec (9.0-12.0) 02/16/19 19:00 INR 1.0 (<1.2) 02/16/19 19:00 APTT 30.0 sec (22.0-30.0) 02/16/19 19:00 Sample Site a-line 02/18/19 19:04 ABG pH 7.32 (7.35-7.45) L 02/18/19 19:04 ABG pCO2 44 mmHg (35-45) 02/18/19 19:04 ABG pO2 235 mmHg (83-108) H 02/18/19 19:04 ABG HCO3 23 mmol/L (21-25) 02/18/19 19:04 ABG Total CO2 24 mmol/L (19-24) 02/18/19 19:04 ABG O2 Saturation 99.6 % (94-97) H 02/18/19 19:04 ABG Base Excess -3.3 mmol/L 02/18/19 19:04 Lyndon Test Yes 02/18/19 19:04 FiO2 90 % 02/18/19 19:04 Sodium 138 mmol/L (137-145) 02/18/19 16:20 Potassium 5.6 mmol/L (3.5-5.1) H 02/18/19 16:20 Chloride 108 mmol/L (98-107) H 02/18/19 16:20 Carbon Dioxide 19 mmol/L (22-30) L 02/18/19 16:20 Anion Gap 11 mmol/L 02/18/19 16:20 BUN 61 mg/dL (9-20) H 02/18/19 16:20 Creatinine 5.58 mg/dL (0.66-1.25) H 02/18/19 16:20 Est GFR (CKD-EPI)AfAm 12 (>60 ml/min/1.73 sqM) 02/18/19 16:20 Est GFR (CKD-EPI)NonAf 10 (>60 ml/min/1.73 sqM) 02/18/19 16:20 Glucose 155 mg/dL (74-99) H 02/18/19 16:20 POC Glucose (mg/dL) 146 mg/dL (75-99) H 02/18/19 13:03 POC Glu Enterprise [employer] Manager ID Jacqui Panchal 02/18/19 13:03 Lactic Ac Sepsis Rflx Y 02/17/19 22:57 Plasma Lactic Acid Tra 7.6 mmol/L (0.7-2.0) H* 02/18/19 04:15 Calcium 4.9 mg/dL (8.4-10.2) L* 02/18/19 16:20 Ionized Calcium Ann 3.0 mg/dL (4.5-5.3) L* 02/18/19 16:20 Phosphorus 4.9 mg/dL (2.5-4.5) H 02/18/19 16:20 Magnesium 1.7 mg/dL (1.6-2.3) 02/18/19 16:20 Total Bilirubin 3.5 mg/dL (0.2-1.3) H 02/16/19 19:00 AST 51 U/L (17-59) 02/16/19 19:00 ALT 29 U/L (21-72) 02/16/19 19:00 Alkaline Phosphatase 103 U/L (38-126) 02/16/19 19:00 Troponin I 4.250 ng/mL (0.000-0.034) H* 02/18/19 04:15 NT-Pro-B Natriuret Pep 4770 pg/mL 02/16/19 19:00 Total Protein 7.0 g/dL (6.3-8.2) 02/16/19 19:00 Albumin 3.8 g/dL (3.5-5.0) 02/16/19 19:00 Microbiology 02/16/19 19:00 Blood Blood Culture - Preliminary No Growth after 48 hours 02/18/19 11:45 Pleural Fluid Body Fluid Culture - Preliminary 02/17/19 12:54 Sputum Gram Stain - Preliminary 02/17/19 12:54 Sputum Sputum Culture - Preliminary Strep pyogenes (grp a) 02/17/19 10:00 Urine,Catheterized Urine Culture - Final Assessment and Plan (1) Influenza A Current Visit: Yes Status: Acute Code(s): J10.1 - FLU DUE TO OTH IDENT INFLUENZA VIRUS W OTH RESP MANIFEST SNOMED Code(s): 711700908 (2) Pneumonia and influenza Narrative/Plan: 63-year-old male who is a history of underlying cardiovascular disease and has been medically disabled presents to Hospital with a relatively short history of influenza A. The patient has the rapid onset of progressive shortness of breath and has now developed respiratory failure, acute lung injury with acute renal failure. Pulmonary critical care is having difficulties of adequate oxygenation and the patient has poor urinary output. His and seen by nephrology and they're contemplating Sled therapy if his hypotension can be further managed. Influenza A is associated with aggressive pneumonia staph aureus and Streptococcus pyogenes given associated with severe necrotizing pneumonia directly links to the influenza infection. We'll continue the active treatment of the influenza with the Tamiflu. Antibiotic therapy with vancomycin and Levaquin has been utilized pending further data. Of note if the patient has been seen the laboratory relates that showed enterococcus biopsies has been isolated in the respiratory secretions. Concern this is a super antigen type strain and constantly antibiotic therapy is altered to ceftriaxone ( with penicillin ALLERGY) and clindamycin was added to attempt to reduce toxin production. Overall prognosis is very poor. Current Visit: Yes Status: Acute Code(s): J11.00 - FLU DUE TO UNIDENTIFIED FLU VIRUS W UNSP TYPE OF PNEUMONIA SNOMED Code(s): 218732353 (3) Acute renal failure Current Visit: Yes Status: Acute Code(s): N17.9 - ACUTE KIDNEY FAILURE, UNSPECIFIED SNOMED Code(s): 21514850
[2019-02-19] MEDS: OSELTAMIVIR 60 MG/10 ML ORAL SYRINGE PO SCH ×2 (00:16→20:57)
[2019-02-19] MEDS: PANTOPRAZOLE 40 MG/10 ML VIAL IVP SCH ×3 (00:24→20:58)
[2019-02-19] MEDS: CLINDAMYCIN 900 MG in DEXTROSE 5% IN WATER 50 ML IVPB SCH ×6 (00:26→16:09)
[2019-02-19] MEDS: HYDROmorphone 1 MG/ML 1 ML SYRINGE IVP SCH ×4 (00:40→09:58)
[2019-02-19] MEDS: ARTIFICIAL TEARS-HYPROMELLOSE DROPS 15 ML BTL BOTH EYES SCH ×7 (00:40→23:28)
[2019-02-19] MEDS: PROPOFOL 1,000 MG in EMPTY BAG 1 BAG IV SCH ×5 (00:50→20:56)
[2019-02-19] MEDS: CISATRACURIUM 200 MG in SODIUM CHLORIDE 0.9% 180 ML IV SCH ×2 (00:50→16:25)
[2019-02-19] MEDS ORDERED: ACETAMINOPHEN IV (For NPO) 1,000 MG in EMPTY BAG 1 BAG IVPB STA (01:16)
[2019-02-19] MEDS: IPRATROPIUM-ALBUTEROL 3 ML NEB INHALATION SCH ×6 (03:10→23:32)
[2019-02-19] MEDS: INSULIN ASPART (NovoLOG) 100 UNIT/ML VIAL SQ SCH ×4 (04:17→17:57)
[2019-02-19 04:25] LABS: Glucose,Whole Blood 195 mg/dL (75-99)
[2019-02-19] MEDS: HYDROCORTISONE SUCCINATE 100 MG/2 ML VIAL IV SCH ×3 (05:23→20:57)
[2019-02-19 06:07] LABS: HCT 43.4 % (39.0-53.0); MCH 34.1 pg (25.0-35.0); MCHC 34.5 g/dL (31.0-37.0); MCV 98.8 fL (80.0-100.0); Mean Platelet Volume 9.1; RBC 4.39 m/uL (4.30-5.90); WBC 14.4 k/uL (3.8-10.6)
[2019-02-19 06:20] LABS: Magnesium 1.9 mg/dL (1.6-2.3); Phosphorus 4.7 mg/dL (2.5-4.5); Potassium 5.4 mmol/L (3.5-5.1)
[2019-02-19 06:25] LABS: Appearance,Urine Cloudy (Clear); Bilirubin,Urine Negative (Negative); Blood,Urine Moderate (Negative); Color,Urine Dark Brown; Glucose,Urine (UA) 1+ (Negative); Ketones,Urine 1+ (Negative); Leukocyte Esterase,Urine Trace (Negative); Nitrite,Urine Negative (Negative); Protein,Urine 1+ (Negative); RBC,Urine 1 /hpf (0-5); Specific Gravity,Urine 1.019 (1.001-1.035); Urobilinogen,Urine <2.0 mg/dL (<2.0); WBC,Urine 1 /hpf (0-5)
[2019-02-19 06:25] LABS: Vancomycin,Random 28.4 ug/mL
[2019-02-19 06:40] LABS: Platelet Count 70 k/uL (150-450)
[2019-02-19 06:41] LABS: Calcium 5.4 mg/dL (8.4-10.2)
[2019-02-19 06:42] LABS: Band Neutrophils % 5 %; Metamyelocytes # (M) 0.14 k/uL (0); Metamyelocytes % 1 %; Monocytes # (M) 0.29 k/uL (0-1.0); Neutrophils % (M) 83 %; Nucleated Red Blood Cells 0 /100 WBC (0-0); Total Cells Counted 100
[2019-02-19] MEDS: DEXTROSE 5% IN WATER 1,000 ML with SODIUM BICARB (1 MEQ/ML) 150 ML IV SCH ×2 (07:06→23:27)
[2019-02-19 07:35] LABS: ABG Base Excess -1.4 mmol/L; ABG HCO3 24 mmol/L (21-25); ABG Oxygen Saturation 98.3 % (94-97); ABG PCO2 42 mmHg (35-45); ABG PH 7.37 (7.35-7.45); ABG PO2 121 mmHg (83-108); ABG TCO2 25 mmol/L (19-24)
[2019-02-19] MEDS ORDERED: ACETAMINOPHEN IV (For NPO) 1,000 MG in EMPTY BAG 1 BAG IVPB ONE (08:58)
[2019-02-19 09:48] LABS: ABG Base Excess -2.2 mmol/L; ABG HCO3 25 mmol/L (21-25); ABG Oxygen Saturation 95.8 % (94-97); ABG PCO2 53 mmHg (35-45); ABG PH 7.28 (7.35-7.45); ABG PO2 97 mmHg (83-108); ABG TCO2 26 mmol/L (19-24)
[2019-02-19] MEDS ORDERED: FUROSEMIDE 10 MG/ML 10 ML VIAL IV STA (09:54)
[2019-02-19] MEDS: ENOXAPARIN 30 MG/0.3 ML SYRINGE SQ SCH (09:59)
[2019-02-19] MEDS: CHLORHEXIDINE GLUCONATE 15 ML CUP MUCOUS MEM SCH ×2 (09:59→20:57)
[2019-02-19] MEDS: NICOTINE 21MG/24HR PATCH TRANSDERM SCH (09:59)
[2019-02-19] MEDS: ASPIRIN 81 MG PO SCH (09:59)
--- NOTE | 2019-02-19 10:02 | P.PN ---
Subjective Progress Note Date: 02/19/19 Principal diagnosis: Influenza A, acute respiratory failure with pneumonia, acute kidney injury secondary to acute tubular necrosis secondary to hypotension and sepsis, mild elevation in his troponins, spontaneous left pneumothorax, history of coronary artery disease with prior stenting, hypertension, hyperlipidemia, and chronic tobacco abuse, current every day smoker. POD #1 left chest Thoravent placement 2 and left thoracostomy tube placement. The patient remains lying in bed in the intensive care unit. He is currently hemodynamically stable on supportive drips, levothyroid at 25 mcg/m, and vasopressin 0.03 units per hour. He remains intubated with mechanical venti lator support. Oxygen saturations are 96% on assist control 40, tidal volume 550, FiO2 50% and PEEP of 16. His T-max temperature in the last 24 hours was 103.1F. He is on antibiotics which is being managed by infectious disease. Currently he remains sedated on Diprivan drip at 35 mcg/kg/m and is on a Nimbex drip. He is a Loo catheter in place with marginal urine output, 100 mL output in the last 24 hours. Left thoracostomy tube and Thoravent tubes remain in place to his left chest. The left thoracostomy tube has a continuous air leak and remains on low continuous suction -20 cm H2O. The Thoravent tubes remained to low continuous suction -20 cm H2O, no air leak is present. Laboratory results this morning WBC 14.4, platelets 70, potassium 5.4, BUN 83, creatinine 7.23. Objective - Vital Signs Vital signs: Vital Signs Temp 102.1 F H 02/19/19 00:00 Pulse 124 H 02/19/19 07:39 Resp 40 H 02/19/19 02:00 BP 75/29 02/18/19 20:00 Pulse Ox 98 02/19/19 02:00 Intake & Output 02/18/19 02/19/19 02/19/19 18:59 06:59 18:59 Intake Total 3088.549 1675.412 98.17 Output Total 543 95 Balance 2545.549 1580.412 98.17 Intake: IV 2613.08 1015 Calcium Gluconate 1 gm In 100 Sodium Chloride 0.9% 100 ml @ 100 mls/hr IVPB ONCE ONE Rx#:[id number] Cisatracurium 200 mg In 37.08 Sodium Chloride 0.9% 180 ml @ 1 MCG/KG/MIN 6.18 mls/hr IV .Q24H [facility] Rx#: [id number] Dextrose 5% in Water 1, 1550 875 000 ml @ 125 mls/hr IV . Q9H12M [facility] with Sodium Bicarb (1 Meq/ml) 150 ml Rx#:[id number] Sodium Chloride 0.9% 1, 425 140 000 ml @ 20 mls/hr IV . Q24H [facility] Rx#:[id number] Vancomycin 1,750 mg In 501 Sodium Chloride 0.9% 500 ml 500 ml @ 167 mls/hr IVPB ONCE ONE Rx#: [id number] Intake, IV Titration 475.469 660.412 98.17 Amount ACETAMINOPHEN IV (For NPO 100 ) 1,000 mg In Empty Bag 1 bag @ 400 mls/hr IVPB ONCE ONE Rx#:[id number] ACETAMINOPHEN IV (For NPO 100 ) 1,000 mg In Empty Bag 1 bag @ 400 mls/hr IVPB ONCE STA Rx#:[id number] Cisatracurium 200 mg In 57.680 109.18 Sodium Chloride 0.9% 180 ml @ 1 MCG/KG/MIN 6.18 mls/hr IV .Q24H [facility] Rx#: [id number] Clindamycin 900 mg In 50 Dextrose 5% in Water 50 ml @ 50 mls/hr IVPB Q8HR [facility] Rx#:[id number] Levofloxacin 250Mg-D5w 50 Pmx 250 mg In Dextrose/ Water 1 50ml.bag @ 50 mls /hr IVPB Q24H [facility] Rx#: [id number] Norepinephrine 32 mg In 167.789 55.442 98.17 Sodium Chloride 0.9% 218 ml @ 0.05 MCG/KG/MIN 2. 233 mls/hr IV .Q24H [facility] Rx#:[id number] Propofol 1,000 mg In 100 295.79 Empty Bag 1 bag @ Titrate IV .Q0M [facility] Rx#: [id number] cefTRIAXone 2 gm In 50 Sodium Chloride 0.9% 50 ml @ 100 mls/hr IVPB Q24H [facility] Rx#:[id number] Output: Chest Tube Drainage 370 70 Chest Tube Left 370 70 Gastric Drainage 100 Urine 73 25 Other: Voiding Method Indwelling Catheter ABP, PAP, CO, CI - Last Documented Arterial Blood Pressure 87/67 - Constitutional General appearance: Present: no acute distress, obese - Respiratory Details: Lung sounds are essentially diminished throughout. Respirations are symmetrical and nonlabored with mechanical ventilator support. Intubated, mechanical ventilator settings: Assist controlled 40, TV 550, FiO2 50%, PEEP 16. Oxygen saturations are 97% on current mechanical ventilator settings. Left chest Thoravent's in place to low continuous wall suction at -20 cm H2O. Draining thin serosanguineous drainage. No air leak is present. Thoravent tube #1 with 80 mL output in the last 24 hours. Left chest thoracostomy tube remains in place to low continuous wall suction -20 cm H2O. Continuous air leak is present. Draining thin serosanguineous drainage. 520 mL output in the last 24 hours. - Cardiovascular Details: Regular rhythm with a tachycardic rate. S1 and S2 present, negative for S3, gallop or murmur. Remote telemetry showing sinus tachycardia heart rate 126. No edema present. Peripheral pulses palpable. Sequential compression devices in place to his bilateral lower extremities. - Gastrointestinal Gastrointestinal Comment(s): Abdomen is soft, and nondistended. Hypoactive bowel sounds to all 4 abdominal quadrants. OG tube in place to low intermittent wall suction. No organomegaly. - Genitourinary Genitourinary Comment(s): Loo catheter for accurate I&O. Draining marginal clear kevin urine. 100 mL output in the last 24 hours. - Integumentary Integumentary Comment(s): Skin is warm and dry to his bilateral upper extremities and to his right lower extremity. Left foot cold to touch, posterior tibial and dorsalis pedis pulse to his left foot palpable. Right foot and bilateral feet mottled. - Neurologic Neurologic Comment(s): Currently on Nimbex drip with a train of 4: 2/4. - Musculoskeletal Musculoskeletal Comment(s): Remains sedated on propofol and Nimbex drips. - Psychiatric Psychiatric Comment(s): Currently sedated on propofol. - Allied health notes Allied health notes reviewed: nursing - Labs CBC & Chem 7: 02/19/19 05:40 02/19/19 05:40 Labs: Abnormal Lab Results - Last 24 Hours (Table) 02/18/19 02/18/19 02/18/19 Range/Units 08:51 11:32 13:00 WBC (3.8-10.6) k/uL Plt Count (150-450) k/uL Neutrophils # (Manual) (1.3-7.7) k/uL Metamyelocytes # (Man) (0) k/uL ABG pH 7.11 L* 7.16 L* (7.35-7.45) ABG pCO2 64 H 67 H (35-45) mmHg ABG pO2 63 L 64 L (83-108) mmHg ABG HCO3 20 L (21-25) mmol/L ABG Total CO2 26 H (19-24) mmol/L ABG O2 Saturation 86.3 L 88.6 L (94-97) % Sodium (137-145) mmol/L Potassium 6.0 H (3.5-5.1) mmol/L Chloride (98-107) mmol/L Carbon Dioxide (22-30) mmol/L BUN 66 H (9-20) mg/dL Creatinine 5.64 H (0.66-1.25) mg/dL Glucose 153 H (74-99) mg/dL POC Glucose (mg/dL) (75-99) mg/dL Calcium 5.5 L* (8.4-10.2) mg/dL Ionized Calcium Ann 3.4 L* (4.5-5.3) mg/dL Phosphorus 7.0 H (2.5-4.5) mg/dL Urine Protein (Negative) Urine Glucose (UA) (Negative) Urine Ketones (Negative) Urine Blood (Negative) Ur Leukocyte Esterase (Negative) 02/18/19 02/18/19 02/18/19 Range/Units 13:03 15:12 16:20 WBC (3.8-10.6) k/uL Plt Count (150-450) k/uL Neutrophils # (Manual) (1.3-7.7) k/uL Metamyelocytes # (Man) (0) k/uL ABG pH 7.13 L* (7.35-7.45) ABG pCO2 74 H* (35-45) mmHg ABG pO2 56 L* (83-108) mmHg ABG HCO3 (21-25) mmol/L ABG Total CO2 27 H (19-24) mmol/L ABG O2 Saturation 83.2 L (94-97) % Sodium (137-145) mmol/L Potassium 5.6 H (3.5-5.1) mmol/L Chloride 108 H (98-107) mmol/L Carbon Dioxide 19 L (22-30) mmol/L BUN 61 H (9-20) mg/dL Creatinine 5.58 H (0.66-1.25) mg/dL Glucose 155 H (74-99) mg/dL POC Glucose (mg/dL) 146 H (75-99) mg/dL Calcium 4.9 L* (8.4-10.2) mg/dL Ionized Calcium Ann 3.0 L* (4.5-5.3) mg/dL Phosphorus 4.9 H (2.5-4.5) mg/dL Urine Protein (Negative) Urine Glucose (UA) (Negative) Urine Ketones (Negative) Urine Blood (Negative) Ur Leukocyte Esterase (Negative) 02/18/19 02/19/19 02/19/19 Range/Units 19:04 04:12 05:40 WBC 14.4 H (3.8-10.6) k/uL Plt Count 70 L (150-450) k/uL Neutrophils # (Manual) 12.60 H (1.3-7.7) k/uL Metamyelocytes # (Man) 0.14 H (0) k/uL ABG pH 7.32 L (7.35-7.45) ABG pCO2 (35-45) mmHg ABG pO2 235 H (83-108) mmHg ABG HCO3 (21-25) mmol/L ABG Total CO2 (19-24) mmol/L ABG O2 Saturation 99.6 H (94-97) % Sodium (137-145) mmol/L Potassium (3.5-5.1) mmol/L Chloride (98-107) mmol/L Carbon Dioxide (22-30) mmol/L BUN (9-20) mg/dL Creatinine (0.66-1.25) mg/dL Glucose (74-99) mg/dL POC Glucose (mg/dL) 195 H (75-99) mg/dL Calcium (8.4-10.2) mg/dL Ionized Calcium Ann (4.5-5.3) mg/dL Phosphorus (2.5-4.5) mg/dL Urine Protein (Negative) Urine Glucose (UA) (Negative) Urine Ketones (Negative) Urine Blood (Negative) Ur Leukocyte Esterase (Negative) 02/19/19 02/19/19 02/19/19 Range/Units 05:40 06:10 07:27 WBC (3.8-10.6) k/uL Plt Count (150-450) k/uL Neutrophils # (Manual) (1.3-7.7) k/uL Metamyelocytes # (Man) (0) k/uL ABG pH (7.35-7.45) ABG pCO2 (35-45) mmHg ABG pO2 121 H (83-108) mmHg ABG HCO3 (21-25) mmol/L ABG Total CO2 25 H (19-24) mmol/L ABG O2 Saturation 98.3 H (94-97) % Sodium 135 L (137-145) mmol/L Potassium 5.4 H (3.5-5.1) mmol/L Chloride (98-107) mmol/L Carbon Dioxide 21 L (22-30) mmol/L BUN 83 H (9-20) mg/dL Creatinine 7.23 H* (0.66-1.25) mg/dL Glucose 212 H (74-99) mg/dL POC Glucose (mg/dL) (75-99) mg/dL Calcium 5.4 L* (8.4-10.2) mg/dL Ionized Calcium Ann 3.0 L* (4.5-5.3) mg/dL Phosphorus 4.7 H (2.5-4.5) mg/dL Urine Protein 1+ H (Negative) Urine Glucose (UA) 1+ H (Negative) Urine Ketones 1+ H (Negative) Urine Blood Moderate H (Negative) Ur Leukocyte Esterase Trace H (Negative) Microbiology - Last 24 Hours (Table) 02/18/19 11:45 Gram Stain - Preliminary Pleural Fluid Body Fluid Culture - Preliminary 02/16/19 19:00 Blood Culture - Preliminary Blood No Growth after 48 hours 02/17/19 12:54 Gram Stain - Preliminary Sputum Sputum Culture - Preliminary Strep pyogenes (grp a) 02/17/19 10:00 Urine Culture - Final Urine,Catheterized - Imaging and Cardiology Chest x-ray: image reviewed Assessment and Plan Assessment: 1. Acute respiratory failure with pneumonia and influenza A infection. 2. Acute sepsis with lactic acidosis. 3. Acute kidney injury secondary to acute tubular necrosis secondary to hypotension and sepsis. 4. Metabolic acidosis secondary to acute kidney injury and lactic acidosis. 5. Spontaneous left pneumothorax. 6. History of coronary artery disease with prior stenting. 7. History of hypertension. 8. History of hyperlipidemia 9. Mild elevation of troponin. 10. Chronic tobacco abuse, currently day smoker. Plan: 1. Continue left pleural chest tube to low continuous wall suction -20 cm H2O. 2. Critical care management recommendations per Dr. Oates. 3. Pulmonary and mechanical ventilator recommendations per pulmonology. 4. Antibiotic management per Dr. Shipley recommendations. Sputum culture showing positive for strep pyogenes. 5. Continue GI and DVT prophylaxis. Currently on Protonix, Lovenox and bilateral lower extremity SCDs. 6. Avoid nephrotoxic agents, nephrology is following. 7. More recommendations to follow based on patient's clinical course. Time with Patient: Greater than 30
--- NOTE | 2019-02-19 10:28 | P.PN ---
Subjective Progress Note Date: 02/19/19 Seen and examined for the follow-up of acute kidney injury. Still on pressors. But the requirement went down currently on 0.1 off vasopressin and 25 mics of levo fed. Urine output is 0-5 ML's per hour. Vent requirement went down to 50% FiO2 and 16 of PEEP. Blood pressures better, heart rate around 125-1 35/m. Objective - Vital Signs Vital signs: Vital Signs Temp 99.6 F 02/19/19 04:00 Pulse 137 H 02/19/19 10:00 Resp 36 H 02/19/19 10:00 BP 112/65 02/19/19 10:00 Pulse Ox 95 02/19/19 10:00 Intake & Output 02/18/19 02/19/19 02/19/19 18:59 06:59 18:59 Intake Total 3088.549 2255.412 243.17 Output Total 543 170 50 Balance 2545.549 2085.412 193.17 Intake: IV 2613.08 1595 145 Calcium Gluconate 1 gm In 100 Sodium Chloride 0.9% 100 ml @ 100 mls/hr IVPB ONCE ONE Rx#:[id number] Cisatracurium 200 mg In 37.08 Sodium Chloride 0.9% 180 ml @ 1 MCG/KG/MIN 6.18 mls/hr IV .Q24H [facility] Rx#: [id number] Dextrose 5% in Water 1, 1550 1375 125 000 ml @ 125 mls/hr IV . Q9H12M [facility] with Sodium Bicarb (1 Meq/ml) 150 ml Rx#:[id number] Sodium Chloride 0.9% 1, 425 220 20 000 ml @ 20 mls/hr IV . Q24H [facility] Rx#:[id number] Vancomycin 1,750 mg In 501 Sodium Chloride 0.9% 500 ml 500 ml @ 167 mls/hr IVPB ONCE ONE Rx#: [id number] Intake, IV Titration 475.469 660.412 98.17 Amount ACETAMINOPHEN IV (For NPO 100 ) 1,000 mg In Empty Bag 1 bag @ 400 mls/hr IVPB ONCE ONE Rx#:[id number] ACETAMINOPHEN IV (For NPO 100 ) 1,000 mg In Empty Bag 1 bag @ 400 mls/hr IVPB ONCE STA Rx#:[id number] Cisatracurium 200 mg In 57.680 109.18 Sodium Chloride 0.9% 180 ml @ 1 MCG/KG/MIN 6.18 mls/hr IV .Q24H [facility] Rx#: [id number] Clindamycin 900 mg In 50 Dextrose 5% in Water 50 ml @ 50 mls/hr IVPB Q8HR [facility] Rx#:[id number] Levofloxacin 250Mg-D5w 50 Pmx 250 mg In Dextrose/ Water 1 50ml.bag @ 50 mls /hr IVPB Q24H [facility] Rx#: [id number] Norepinephrine 32 mg In 167.789 55.442 98.17 Sodium Chloride 0.9% 218 ml @ 0.05 MCG/KG/MIN 2. 233 mls/hr IV .Q24H [facility] Rx#:[id number] Propofol 1,000 mg In 100 295.79 Empty Bag 1 bag @ Titrate IV .Q0M [facility] Rx#: [id number] cefTRIAXone 2 gm In 50 Sodium Chloride 0.9% 50 ml @ 100 mls/hr IVPB Q24H [facility] Rx#:[id number] Output: Chest Tube Drainage 370 120 50 Chest Tube Left 370 120 50 Gastric Drainage 100 Urine 73 50 0 Other: Voiding Method Indwelling Catheter Indwelling Catheter ABP, PAP, CO, CI - Last Documented Arterial Blood Pressure 93/72 - Exam No acute distress currently intubated on a ventilator S1-S2 heard Decreased breath sounds on the left Left-sided chest tube. Edema. - Labs CBC & Chem 7: 02/19/19 05:40 02/19/19 05:40 Labs: Abnormal Lab Results - Last 24 Hours (Table) 02/18/19 02/18/19 02/18/19 Range/Units 11:32 13:00 13:03 WBC (3.8-10.6) k/uL Plt Count (150-450) k/uL Neutrophils # (Manual) (1.3-7.7) k/uL Metamyelocytes # (Man) (0) k/uL ABG pH 7.16 L* (7.35-7.45) ABG pCO2 67 H (35-45) mmHg ABG pO2 64 L (83-108) mmHg ABG Total CO2 26 H (19-24) mmol/L ABG O2 Saturation 88.6 L (94-97) % Sodium (137-145) mmol/L Potassium 6.0 H (3.5-5.1) mmol/L Chloride (98-107) mmol/L Carbon Dioxide (22-30) mmol/L BUN 66 H (9-20) mg/dL Creatinine 5.64 H (0.66-1.25) mg/dL Glucose 153 H (74-99) mg/dL POC Glucose (mg/dL) 146 H (75-99) mg/dL Calcium 5.5 L* (8.4-10.2) mg/dL Ionized Calcium Ann 3.4 L* (4.5-5.3) mg/dL Phosphorus 7.0 H (2.5-4.5) mg/dL Urine Protein (Negative) Urine Glucose (UA) (Negative) Urine Ketones (Negative) Urine Blood (Negative) Ur Leukocyte Esterase (Negative) 02/18/19 02/18/19 02/18/19 Range/Units 15:12 16:20 19:04 WBC (3.8-10.6) k/uL Plt Count (150-450) k/uL Neutrophils # (Manual) (1.3-7.7) k/uL Metamyelocytes # (Man) (0) k/uL ABG pH 7.13 L* 7.32 L (7.35-7.45) ABG pCO2 74 H* (35-45) mmHg ABG pO2 56 L* 235 H (83-108) mmHg ABG Total CO2 27 H (19-24) mmol/L ABG O2 Saturation 83.2 L 99.6 H (94-97) % Sodium (137-145) mmol/L Potassium 5.6 H (3.5-5.1) mmol/L Chloride 108 H (98-107) mmol/L Carbon Dioxide 19 L (22-30) mmol/L BUN 61 H (9-20) mg/dL Creatinine 5.58 H (0.66-1.25) mg/dL Glucose 155 H (74-99) mg/dL POC Glucose (mg/dL) (75-99) mg/dL Calcium 4.9 L* (8.4-10.2) mg/dL Ionized Calcium Ann 3.0 L* (4.5-5.3) mg/dL Phosphorus 4.9 H (2.5-4.5) mg/dL Urine Protein (Negative) Urine Glucose (UA) (Negative) Urine Ketones (Negative) Urine Blood (Negative) Ur Leukocyte Esterase (Negative) 02/19/19 02/19/19 02/19/19 Range/Units 04:12 05:40 05:40 WBC 14.4 H (3.8-10.6) k/uL Plt Count 70 L (150-450) k/uL Neutrophils # (Manual) 12.60 H (1.3-7.7) k/uL Metamyelocytes # (Man) 0.14 H (0) k/uL ABG pH (7.35-7.45) ABG pCO2 (35-45) mmHg ABG pO2 (83-108) mmHg ABG Total CO2 (19-24) mmol/L ABG O2 Saturation (94-97) % Sodium 135 L (137-145) mmol/L Potassium 5.4 H (3.5-5.1) mmol/L Chloride (98-107) mmol/L Carbon Dioxide 21 L (22-30) mmol/L BUN 83 H (9-20) mg/dL Creatinine 7.23 H* (0.66-1.25) mg/dL Glucose 212 H (74-99) mg/dL POC Glucose (mg/dL) 195 H (75-99) mg/dL Calcium 5.4 L* (8.4-10.2) mg/dL Ionized Calcium Ann 3.0 L* (4.5-5.3) mg/dL Phosphorus 4.7 H (2.5-4.5) mg/dL Urine Protein (Negative) Urine Glucose (UA) (Negative) Urine Ketones (Negative) Urine Blood (Negative) Ur Leukocyte Esterase (Negative) 02/19/19 02/19/19 02/19/19 Range/Units 06:10 07:27 09:46 WBC (3.8-10.6) k/uL Plt Count (150-450) k/uL Neutrophils # (Manual) (1.3-7.7) k/uL Metamyelocytes # (Man) (0) k/uL ABG pH 7.28 L (7.35-7.45) ABG pCO2 53 H (35-45) mmHg ABG pO2 121 H (83-108) mmHg ABG Total CO2 25 H 26 H (19-24) mmol/L ABG O2 Saturation 98.3 H (94-97) % Sodium (137-145) mmol/L Potassium (3.5-5.1) mmol/L Chloride (98-107) mmol/L Carbon Dioxide (22-30) mmol/L BUN (9-20) mg/dL Creatinine (0.66-1.25) mg/dL Glucose (74-99) mg/dL POC Glucose (mg/dL) (75-99) mg/dL Calcium (8.4-10.2) mg/dL Ionized Calcium Ann (4.5-5.3) mg/dL Phosphorus (2.5-4.5) mg/dL Urine Protein 1+ H (Negative) Urine Glucose (UA) 1+ H (Negative) Urine Ketones 1+ H (Negative) Urine Blood Moderate H (Negative) Ur Leukocyte Esterase Trace H (Negative) Microbiology - Last 24 Hours (Table) 02/18/19 11:45 Gram Stain - Preliminary Pleural Fluid Body Fluid Culture - Preliminary 02/17/19 12:54 Gram Stain - Final Sputum Sputum Culture - Final Strep pyogenes (grp a) 02/16/19 19:00 Blood Culture - Preliminary Blood No Growth after 48 hours 02/17/19 10:00 Urine Culture - Final Urine,Catheterized Assessment and Plan Assessment: #1 acute kidney injury, oliguric secondary to hemodynamic ATN from hypotension with sepsis, unknown baseline creatinine. #2 Anion gap Metabolic acidosis with respiratory acidosis. #3 vent dependent respiratory failure #4 shock on pressors #5 hyperkalemia, mild. #6 pneumothorax status post chest tube #7 influenza pneumonia. #8 hypocalcemia with low ionized calcium, suspect secondary to bicarb drip. Plan: #1 monitor BMP to 12, if electrolytes getting worse might need hemodialysis (sled) #2 continue with bicarb drip for now #3 treat hyperkalemia medically. Can try Lasix challenge but I doubt it's gona work with severe ischemic ATN. #4 antibiotics for sepsis #5 c/w pressors to maintain hemodynamics #6 avoid nephrotoxic agents and hypotensive episodes. #7 no acute indication for hemodialysis today. Anticipate hemodynamics to improve by tomorrow. Plan dialysis by tomorrow based on the labs and urine output. Worried might disturb the hemodynamics with dialysis today. #8 check PTH in the morning. Discussed with the family at length yesterday for need of dialysis and family agreeable.
[2019-02-19] MEDS ORDERED: LIDOCAINE 1% INJ 10MG/ML (20 ML MDV) ONE (10:29)
[2019-02-19] MEDS ORDERED: HEPARIN SODIUM 1,000 UN/ML (10ML VL) ONE (10:29)
--- NOTE | 2019-02-19 10:42 | P.PN ---
Subjective Patient still remains intubated. Yesterday he had significant sinus tachycardia and was actually found to have pneumothorax. After placement of chest tubes his heart is improved but his overall condition remains very critical cardiac standpoint he has evidence of myocardial injury in the setting of influenza which is quite severe with ARDS and now pneumothorax ECG still shows sinus tachycardia ICU supportive care continues Breath sounds are reduced bilaterally Heart sounds are distant and tachycardic Abdomen soft Impression Myocardial injury in the setting of influenza a Patient is ARDS and a sinus tachycardia From a cardiac standpoint I would not recommend any further workup and hopefully his condition improves with treatment of ARDS Overall prognosis is grim Objective - Vital Signs Vital signs: Vital Signs Temp 99.6 F 02/19/19 04:00 Pulse 137 H 02/19/19 10:00 Resp 36 H 02/19/19 10:00 BP 112/65 02/19/19 10:00 Pulse Ox 95 02/19/19 10:00 Intake & Output 02/18/19 02/19/19 02/19/19 18:59 06:59 18:59 Intake Total 3088.549 2255.412 243.17 Output Total 543 170 50 Balance 2545.549 2085.412 193.17 Weight 110 kg Intake: IV 2613.08 1595 145 Calcium Gluconate 1 gm In 100 Sodium Chloride 0.9% 100 ml @ 100 mls/hr IVPB ONCE ONE Rx#:[id number] Cisatracurium 200 mg In 37.08 Sodium Chloride 0.9% 180 ml @ 1 MCG/KG/MIN 6.18 mls/hr IV .Q24H NI Rx#: [id number] Dextrose 5% in Water 1, 1550 1375 125 000 ml @ 100 mls/hr IV . [id number] NI with Sodium Bicarb (1 Meq/ml) 150 ml Rx#:[id number] Sodium Chloride 0.9% 1, 425 220 20 000 ml @ 20 mls/hr IV . Q24H NI Rx#:[id number] Vancomycin 1,750 mg In 501 Sodium Chloride 0.9% 500 ml 500 ml @ 167 mls/hr IVPB ONCE ONE Rx#: [id number] Intake, IV Titration 475.469 660.412 98.17 Amount ACETAMINOPHEN IV (For NPO 100 ) 1,000 mg In Empty Bag 1 bag @ 400 mls/hr IVPB ONCE ONE Rx#:[id number] ACETAMINOPHEN IV (For NPO 100 ) 1,000 mg In Empty Bag 1 bag @ 400 mls/hr IVPB ONCE STA Rx#:[id number] Cisatracurium 200 mg In 57.680 109.18 Sodium Chloride 0.9% 180 ml @ 1 MCG/KG/MIN 6.18 mls/hr IV .Q24H [facility] Rx#: [id number] Clindamycin 900 mg In 50 Dextrose 5% in Water 50 ml @ 50 mls/hr IVPB Q8HR NI Rx#:[id number] Levofloxacin 250Mg-D5w 50 Pmx 250 mg In Dextrose/ Water 1 50ml.bag @ 50 mls /hr IVPB Q24H [facility] Rx#: [id number] Norepinephrine 32 mg In 167.789 55.442 98.17 Sodium Chloride 0.9% 218 ml @ 0.05 MCG/KG/MIN 2. 233 mls/hr IV .Q24H [facility] Rx#:[id number] Propofol 1,000 mg In 100 295.79 Empty Bag 1 bag @ Titrate IV .Q0M [facility] Rx#: [id number] cefTRIAXone 2 gm In 50 Sodium Chloride 0.9% 50 ml @ 100 mls/hr IVPB Q24H [facility] Rx#:[id number] Output: Chest Tube Drainage 370 120 50 Chest Tube Left 370 120 50 Gastric Drainage 100 Urine 73 50 0 Other: Voiding Method Indwelling Catheter Indwelling Catheter ABP, PAP, CO, CI - Last Documented Arterial Blood Pressure 93/72 - Labs CBC & Chem 7: 02/19/19 05:40 02/19/19 05:40 Labs: Abnormal Lab Results - Last 24 Hours (Table) 02/18/19 02/18/19 02/18/19 Range/Units 11:32 13:00 13:03 WBC (3.8-10.6) k/uL Plt Count (150-450) k/uL Neutrophils # (Manual) (1.3-7.7) k/uL Metamyelocytes # (Man) (0) k/uL ABG pH 7.16 L* (7.35-7.45) ABG pCO2 67 H (35-45) mmHg ABG pO2 64 L (83-108) mmHg ABG Total CO2 26 H (19-24) mmol/L ABG O2 Saturation 88.6 L (94-97) % Sodium (137-145) mmol/L Potassium 6.0 H (3.5-5.1) mmol/L Chloride (98-107) mmol/L Carbon Dioxide (22-30) mmol/L BUN 66 H (9-20) mg/dL Creatinine 5.64 H (0.66-1.25) mg/dL Glucose 153 H (74-99) mg/dL POC Glucose (mg/dL) 146 H (75-99) mg/dL Calcium 5.5 L* (8.4-10.2) mg/dL Ionized Calcium Ann 3.4 L* (4.5-5.3) mg/dL Phosphorus 7.0 H (2.5-4.5) mg/dL Urine Protein (Negative) Urine Glucose (UA) (Negative) Urine Ketones (Negative) Urine Blood (Negative) Ur Leukocyte Esterase (Negative) 02/18/19 02/18/19 02/18/19 Range/Units 15:12 16:20 19:04 WBC (3.8-10.6) k/uL Plt Count (150-450) k/uL Neutrophils # (Manual) (1.3-7.7) k/uL Metamyelocytes # (Man) (0) k/uL ABG pH 7.13 L* 7.32 L (7.35-7.45) ABG pCO2 74 H* (35-45) mmHg ABG pO2 56 L* 235 H (83-108) mmHg ABG Total CO2 27 H (19-24) mmol/L ABG O2 Saturation 83.2 L 99.6 H (94-97) % Sodium (137-145) mmol/L Potassium 5.6 H (3.5-5.1) mmol/L Chloride 108 H (98-107) mmol/L Carbon Dioxide 19 L (22-30) mmol/L BUN 61 H (9-20) mg/dL Creatinine 5.58 H (0.66-1.25) mg/dL Glucose 155 H (74-99) mg/dL POC Glucose (mg/dL) (75-99) mg/dL Calcium 4.9 L* (8.4-10.2) mg/dL Ionized Calcium Ann 3.0 L* (4.5-5.3) mg/dL Phosphorus 4.9 H (2.5-4.5) mg/dL Urine Protein (Negative) Urine Glucose (UA) (Negative) Urine Ketones (Negative) Urine Blood (Negative) Ur Leukocyte Esterase (Negative) 02/19/19 02/19/19 02/19/19 Range/Units 04:12 05:40 05:40 WBC 14.4 H (3.8-10.6) k/uL Plt Count 70 L (150-450) k/uL Neutrophils # (Manual) 12.60 H (1.3-7.7) k/uL Metamyelocytes # (Man) 0.14 H (0) k/uL ABG pH (7.35-7.45) ABG pCO2 (35-45) mmHg ABG pO2 (83-108) mmHg ABG Total CO2 (19-24) mmol/L ABG O2 Saturation (94-97) % Sodium 135 L (137-145) mmol/L Potassium 5.4 H (3.5-5.1) mmol/L Chloride (98-107) mmol/L Carbon Dioxide 21 L (22-30) mmol/L BUN 83 H (9-20) mg/dL Creatinine 7.23 H* (0.66-1.25) mg/dL Glucose 212 H (74-99) mg/dL POC Glucose (mg/dL) 195 H (75-99) mg/dL Calcium 5.4 L* (8.4-10.2) mg/dL Ionized Calcium Ann 3.0 L* (4.5-5.3) mg/dL Phosphorus 4.7 H (2.5-4.5) mg/dL Urine Protein (Negative) Urine Glucose (UA) (Negative) Urine Ketones (Negative) Urine Blood (Negative) Ur Leukocyte Esterase (Negative) 02/19/19 02/19/19 02/19/19 Range/Units 06:10 07:27 09:46 WBC (3.8-10.6) k/uL Plt Count (150-450) k/uL Neutrophils # (Manual) (1.3-7.7) k/uL Metamyelocytes # (Man) (0) k/uL ABG pH 7.28 L (7.35-7.45) ABG pCO2 53 H (35-45) mmHg ABG pO2 121 H (83-108) mmHg ABG Total CO2 25 H 26 H (19-24) mmol/L ABG O2 Saturation 98.3 H (94-97) % Sodium (137-145) mmol/L Potassium (3.5-5.1) mmol/L Chloride (98-107) mmol/L Carbon Dioxide (22-30) mmol/L BUN (9-20) mg/dL Creatinine (0.66-1.25) mg/dL Glucose (74-99) mg/dL POC Glucose (mg/dL) (75-99) mg/dL Calcium (8.4-10.2) mg/dL Ionized Calcium Ann (4.5-5.3) mg/dL Phosphorus (2.5-4.5) mg/dL Urine Protein 1+ H (Negative) Urine Glucose (UA) 1+ H (Negative) Urine Ketones 1+ H (Negative) Urine Blood Moderate H (Negative) Ur Leukocyte Esterase Trace H (Negative) Microbiology - Last 24 Hours (Table) 02/18/19 11:45 Gram Stain - Preliminary Pleural Fluid Body Fluid Culture - Preliminary 02/17/19 12:54 Gram Stain - Final Sputum Sputum Culture - Final Strep pyogenes (grp a) 02/16/19 19:00 Blood Culture - Preliminary Blood No Growth after 48 hours 02/17/19 10:00 Urine Culture - Final Urine,Catheterized
[2019-02-19] MEDS ORDERED: CALCIUM GLUCONATE 1 GM in SODIUM CHLORIDE 0.9% 100 ML IVPB ONE (11:00)
--- NOTE | 2019-02-19 12:25 | PCN ---
PROCEDURE NOTE OPERATIVE REPORT: Placement of a right femoral arterial line. PREOPERATIVE DIAGNOSIS: Acute septic shock. POSTOP DIAGNOSIS: Acute septic shock. ANESTHESIA: Used none deployed. DETAILS OF THE PROCEDURE: The right groin was prepared in a sterile fashion and drapes were applied. The right femoral artery was cannulated, and a guidewire was placed. The catheter was inserted over the guidewire, and the guidewire was removed. The line was secured using 3.0 silk sutures. Initially, it was felt it may be a venous instead of an arterial access, however, once was connected to IV fluids, there was clearly evidence of pulsation in the line, and it was connected to monitor, clearly there was good waveform and no evidence of any immediate complications. MMODL / IJN: [id number] /
--- NOTE | 2019-02-19 12:35 | P.PN ---
Subjective Progress Note Date: 02/19/19 Principal diagnosis: Acute septic shock secondary to pneumonia following acute influenza infection. this is a 63-year-old white male with history of coronary artery disease, and p revious episodes of congestive heart failure, patient was seen in the walk-in clinic on Wednesday which is 2 days ago for symptoms of cough, sore throat, aches and pains. Patient was diagnosed as having acute influenza A infection. Placed on Tamiflu. However his symptoms have been getting worse, and last night he was brought into the ER. Patient was hypotensive, acidotic, and a chest x- ray showed a significant infiltrate involving the left upper lobe. Patient required multiple fluid boluses to maintain his adequate blood pressure. However he was noted to be oliguric, and he was noted to be extremely acidotic.his initial lactic acid on presentation was 12.6. Patient received significant amount of fluids, placed on BiPAP, and his ABG this morning showed a pO2 of 159 pCO2 of 45 pH of 7.15. Patient was noted to be extremely agitated and restless. And he was trying to pull his BiPAP frequently. A few amps of bicarb were given IV push, patient was placed on a bicarb drip. Follow-up chest x-ray this morning showedleft upper lobe infiltrate, and some component of interstitial edema noted in the left lung. Right lung was noted to be clear. Patient was given Lasix, but no response to Lasix. At this point he is extremely oliguric. Nephrology was consulted, and sodium bicarb drip was recommended.his BNP level was noted to be elevated at 4770 and his troponin was also a bit elevated at 0.205. Hence cardiology will be consulted.echocardiogram was also ordered. According to the the patient has been fairly healthy recently, and all his symptoms have been going on for the last 2 days. Patient was reevaluated today on 02/18/2019, patient has not been doing well since he was admitted to the ICU yesterday. Patient required intubation intubation yesterday mostly because of his severe metabolic acidosis, and worsening oxygenation. Patient developed what seems to be a picture of ARDS. And early this morning he developed a spontaneous left-sided pneumothorax going into tension pneumothorax. I was called about this patient early this morning around 6 AM, recommended immediate chest tube placement by the ER physician who came in and placed a thoracic vent. Slight improvement was noted in the follow- up chest x-ray, but the lung did not expand enough. Patient remained relatively hypoxemic, he was on 100% FiO2, and I placed another thoracic vent next to the e arlier vent. Again follow-up chest x-ray did not show much improvement, then I proceeded to placement of a 28 [place] chest tube at the anterior axillary line and fifth intercostal space. Significant improvement was noted in the left sided pneumothorax. There was slight improvement in his O2 saturation, but not much. Patient was kept on mechanical ventilation, cut down his tidal volume to 475, increased his rate to 36, increased the PEEP to 12, and kept him on bronchodilators, antibiotics, I added Solu-Cortef, patient remains hypotensive and requiring almost 50 g of norepinephrine per minute. He was also placed for a short period of time last night on vasopressin. I have also recommended that the patient gets Nimbex, and kept on propofol, and we'll continue Dilaudid. 1 mg every 3 hours [id number]. Family was updated on his condition, and what is concerning is the patient remains relatively hypoxemic, hypotensive, requiring significant amount of pressors, oliguric, and extremely acidotic with combined metabolic and respiratory acidosis. Multiple consultants are on the c ase including cardiology, nephrology, and will initiate infectious disease consultation. In the meantime the patient remains on Tamiflu, antibiotics including vancomycin and Levaquin, he is also on Solu-Cortef, and on GI and DVT prophylaxis, multiple doses of Lasix were given and did not improve much of his urine output. Patient is now paralyzed sedated, he is on mechanical ventilation with tidal volume of 475, FiO2 of 100%, PEEP of 12, and assist control rate of 36. Patient is also on propofol, Nimbex, and 55 g of norepinephrine per minutes. Patient was reevaluated today on 02/19/2019, remains on mechanical ventilation, and his ventilator settings have been changed today. He is on tidal volume of 480, assist control rate of 36, FiO2 of 50%, and PEEP of 16. Although the patient is set at a tidal volume of 480, however the actual tidal volume he is receiving is about 450 since there is some loss of tidal volume from the chest tubes in the left lung. Yesterday shortly after the PEEP was increased to 16, his oxygenation significantly improved, and I was able to cut down the FiO2 from 100% down to 50% to gradually. Repeat ABG at the time showed a pO2 of over 200. Although his pO2 was all along in the 50s and low 60s. Patient remained on bicarb drip which I'll cutting down today to 100 mL per hour, I'm also cutting down his pressors. Vasopressin was discontinued this morning, and he is on 25 g of norepinephrine still. Patient developed significant vasospasm of the dis marie upper extremities, and distal toes. That will likely improve with cutting down on the vasopressin and cutting down hopefully on the norepinephrine. Blood pressure has been noted to be improved this morning, his right arterial line was discontinued, and became nonfunctional. Went ahead and placed a right femoral arterial line. Attempts were made to put brachial arterial lines, but could not thread a wire easily although it was very easy to cannulate both blood vessels. They were cannulated using Doppler. At any rate the patient now is much better compared to yesterday. His overall clinical status is improving, however he remains on Nimbex, and I will keep him on Nimbex as long as we are maintaining him on a higher PEEP. Discussed his condition today with nephrology and with infectious disease, and the patient will likely have dialysis done today. The sputum is positive for strep. She needs a group a. The Gram stain from the left sided pleural effusion is also positive for gram-positive cocci which is again most likely strep. Nerissa's unless proven otherwise. ABG done earlier today showed a pO2 of 121 pCO2 of 42 pH of 7.37. However repeat ABG later on showed a pO2 of 97 pCO2 of 53 pH of 7.28 and his assist control rate was increased to 56 and set of 34. I did cut down on the tidal volume from earlier today mostly because the leak on the left side seems to be less. Peak airway pressure is in the high 30s, and plateau pressures are in the range of 28. Patient remains on vancomycin, Solu-Cortef, and clindamycin was added by infectious disease. Tamiflu is also given. Patient remains on propofol, Nimbex, Dilaudid intermittently, and his again on 25 mcg/m of norepinephrine. Objective - Vital Signs Vital signs: Vital Signs Temp 99.6 F 02/19/19 04:00 Pulse 127 H 02/19/19 11:23 Resp 36 H 02/19/19 10:00 BP 112/65 02/19/19 10:00 Pulse Ox 95 02/19/19 10:00 Intake & Output 02/18/19 02/19/19 02/19/19 18:59 06:59 18:59 Intake Total 3088.549 2255.412 313.004 Output Total 543 170 50 Balance 2545.549 2085.412 263.004 Weight 110 kg Intake: IV 2613.08 1595 145 Calcium Gluconate 1 gm In 100 Sodium Chloride 0.9% 100 ml @ 100 mls/hr IVPB ONCE ONE Rx#:[id number] Cisatracurium 200 mg In 37.08 Sodium Chloride 0.9% 180 ml @ 1 MCG/KG/MIN 6.18 mls/hr IV .Q24H NI Rx#: [id number] Dextrose 5% in Water 1, 1550 1375 125 000 ml @ 100 mls/hr IV . [id number] NI with Sodium Bicarb (1 Meq/ml) 150 ml Rx#:[id number] Sodium Chloride 0.9% 1, 425 220 20 000 ml @ 20 mls/hr IV . Q24H [facility] Rx#:[id number] Vancomycin 1,750 mg In 501 Sodium Chloride 0.9% 500 ml 500 ml @ 167 mls/hr IVPB ONCE ONE Rx#: [id number] Intake, IV Titration 475.469 660.412 168.004 Amount ACETAMINOPHEN IV (For NPO 100 ) 1,000 mg In Empty Bag 1 bag @ 400 mls/hr IVPB ONCE ONE Rx#:[id number] ACETAMINOPHEN IV (For NPO 100 ) 1,000 mg In Empty Bag 1 bag @ 400 mls/hr IVPB ONCE STA Rx#:[id number] Cisatracurium 200 mg In 57.680 109.18 Sodium Chloride 0.9% 180 ml @ 1 MCG/KG/MIN 6.18 mls/hr IV .Q24H [facility] Rx#: [id number] Clindamycin 900 mg In 50 Dextrose 5% in Water 50 ml @ 50 mls/hr IVPB Q8HR [facility] Rx#:[id number] Levofloxacin 250Mg-D5w 50 Pmx 250 mg In Dextrose/ Water 1 50ml.bag @ 50 mls /hr IVPB Q24H [facility] Rx#: [id number] Norepinephrine 32 mg In 167.789 55.442 98.17 Sodium Chloride 0.9% 218 ml @ 0.05 MCG/KG/MIN 2. 233 mls/hr IV .Q24H [facility] Rx#:[id number] Propofol 1,000 mg In 100 295.79 69.834 Empty Bag 1 bag @ Titrate IV .Q0M [facility] Rx#: [id number] cefTRIAXone 2 gm In 50 Sodium Chloride 0.9% 50 ml @ 100 mls/hr IVPB Q24H [facility] Rx#:[id number] Output: Chest Tube Drainage 370 120 50 Chest Tube Left 370 120 50 Gastric Drainage 100 Urine 73 50 0 Other: Voiding Method Indwelling Catheter Indwelling Catheter ABP, PAP, CO, CI - Last Documented Arterial Blood Pressure 93/72 - Exam Physical Exam: Revealed a 63-year-old white male on mechanical ventilation, sedated, and paralyzed with Nimbex. Head: Atraumatic, normocephalic. Moist mucous membranes. Endotracheal tube and orogastric tube were noted to be intact. HEENT:[Neck is supple.] [No neck masses.] [No thyromegaly.] [No JVD.]Chyna, EOMI, no icterus. Chest: [crackles and rhonchi noted bilaterally throughout, symmetrical chest expansion, 2 thoracic vent tubes noted in the upper anterior chest area, and the left sided chest tube laterally noted [address] [place]. Cardiac Exam: [tachycardic, normal S1 and S2, no S3 gallop, no murmur.r.] Abdomen: [obese,Soft, nontender, no megaly, no rebound, no guarding, normal bowel sounds.] Extremities: [No clubbing, 2+ bipedal edema, peripheral cyanosis is noted secondary to vasospasm secondary to pressors. Neurological Exam: Cannot be assessed, patient is sedated and paralyzed.. lymphatics: No lymphadenopathy. Skin: No rashes. Psychiatric: Could not be assessed. Sedated and paralyzed - Labs CBC & Chem 7: 02/19/19 05:40 02/19/19 05:40 Labs: Abnormal Lab Results - Last 24 Hours (Table) 02/18/19 02/18/19 02/18/19 Range/Units 13:00 13:03 15:12 WBC (3.8-10.6) k/uL Plt Count (150-450) k/uL Neutrophils # (Manual) (1.3-7.7) k/uL Metamyelocytes # (Man) (0) k/uL ABG pH 7.13 L* (7.35-7.45) ABG pCO2 74 H* (35-45) mmHg ABG pO2 56 L* (83-108) mmHg ABG Total CO2 27 H (19-24) mmol/L ABG O2 Saturation 83.2 L (94-97) % Sodium (137-145) mmol/L Potassium 6.0 H (3.5-5.1) mmol/L Chloride (98-107) mmol/L Carbon Dioxide (22-30) mmol/L BUN 66 H (9-20) mg/dL Creatinine 5.64 H (0.66-1.25) mg/dL Glucose 153 H (74-99) mg/dL POC Glucose (mg/dL) 146 H (75-99) mg/dL Calcium 5.5 L* (8.4-10.2) mg/dL Ionized Calcium Ann 3.4 L* (4.5-5.3) mg/dL Phosphorus 7.0 H (2.5-4.5) mg/dL Urine Protein (Negative) Urine Glucose (UA) (Negative) Urine Ketones (Negative) Urine Blood (Negative) Ur Leukocyte Esterase (Negative) 02/18/19 02/18/19 02/19/19 Range/Units 16:20 19:04 04:12 WBC (3.8-10.6) k/uL Plt Count (150-450) k/uL Neutrophils # (Manual) (1.3-7.7) k/uL Metamyelocytes # (Man) (0) k/uL ABG pH 7.32 L (7.35-7.45) ABG pCO2 (35-45) mmHg ABG pO2 235 H (83-108) mmHg ABG Total CO2 (19-24) mmol/L ABG O2 Saturation 99.6 H (94-97) % Sodium (137-145) mmol/L Potassium 5.6 H (3.5-5.1) mmol/L Chloride 108 H (98-107) mmol/L Carbon Dioxide 19 L (22-30) mmol/L BUN 61 H (9-20) mg/dL Creatinine 5.58 H (0.66-1.25) mg/dL Glucose 155 H (74-99) mg/dL POC Glucose (mg/dL) 195 H (75-99) mg/dL Calcium 4.9 L* (8.4-10.2) mg/dL Ionized Calcium Ann 3.0 L* (4.5-5.3) mg/dL Phosphorus 4.9 H (2.5-4.5) mg/dL Urine Protein (Negative) Urine Glucose (UA) (Negative) Urine Ketones (Negative) Urine Blood (Negative) Ur Leukocyte Esterase (Negative) 02/19/19 02/19/19 02/19/19 Range/Units 05:40 05:40 06:10 WBC 14.4 H (3.8-10.6) k/uL Plt Count 70 L (150-450) k/uL Neutrophils # (Manual) 12.60 H (1.3-7.7) k/uL Metamyelocytes # (Man) 0.14 H (0) k/uL ABG pH (7.35-7.45) ABG pCO2 (35-45) mmHg ABG pO2 (83-108) mmHg ABG Total CO2 (19-24) mmol/L ABG O2 Saturation (94-97) % Sodium 135 L (137-145) mmol/L Potassium 5.4 H (3.5-5.1) mmol/L Chloride (98-107) mmol/L Carbon Dioxide 21 L (22-30) mmol/L BUN 83 H (9-20) mg/dL Creatinine 7.23 H* (0.66-1.25) mg/dL Glucose 212 H (74-99) mg/dL POC Glucose (mg/dL) (75-99) mg/dL Calcium 5.4 L* (8.4-10.2) mg/dL Ionized Calcium Ann 3.0 L* (4.5-5.3) mg/dL Phosphorus 4.7 H (2.5-4.5) mg/dL Urine Protein 1+ H (Negative) Urine Glucose (UA) 1+ H (Negative) Urine Ketones 1+ H (Negative) Urine Blood Moderate H (Negative) Ur Leukocyte Esterase Trace H (Negative) 02/19/19 02/19/19 Range/Units 07:27 09:46 WBC (3.8-10.6) k/uL Plt Count (150-450) k/uL Neutrophils # (Manual) (1.3-7.7) k/uL Metamyelocytes # (Man) (0) k/uL ABG pH 7.28 L (7.35-7.45) ABG pCO2 53 H (35-45) mmHg ABG pO2 121 H (83-108) mmHg ABG Total CO2 25 H 26 H (19-24) mmol/L ABG O2 Saturation 98.3 H (94-97) % Sodium (137-145) mmol/L Potassium (3.5-5.1) mmol/L Chloride (98-107) mmol/L Carbon Dioxide (22-30) mmol/L BUN (9-20) mg/dL Creatinine (0.66-1.25) mg/dL Glucose (74-99) mg/dL POC Glucose (mg/dL) (75-99) mg/dL Calcium (8.4-10.2) mg/dL Ionized Calcium Ann (4.5-5.3) mg/dL Phosphorus (2.5-4.5) mg/dL Urine Protein (Negative) Urine Glucose (UA) (Negative) Urine Ketones (Negative) Urine Blood (Negative) Ur Leukocyte Esterase (Negative) Microbiology - Last 24 Hours (Table) 02/18/19 11:45 Gram Stain - Preliminary Pleural Fluid Body Fluid Culture - Preliminary 02/17/19 12:54 Gram Stain - Final Sputum Sputum Culture - Final Strep pyogenes (grp a) 02/16/19 19:00 Blood Culture - Preliminary Blood No Growth after 48 hours 02/17/19 10:00 Urine Culture - Final Urine,Catheterized Assessment and Plan Assessment: impression: 1 Acute septic shock secondary to influenza infection complicated by strep pyogenes pneumonia and ARDS and left-sided parapneumonic effusion, Gram stain on the pleural effusion was positive gram-positive cocci 2 acute pneumonia, secondary to Streptococcus pyogenes 3 acute sepsis and septic shock 4 acute kidney injury secondary to acute tubular necrosis. Secondary to septic shock. Discussed with nephrology, patient may be placed on dialysis today. 5 history of coronary artery disease and previous stent placement. 6 acute hypoxic respiratory failure secondary to profound metabolic acidosis secondary to sepsis. And pneumonia 7suspect some component of pulmonary edema based on his follow-up chest x-ray an d based on elevated BNP level. 8 elevated troponin most likely secondary to sepsis, however considering his underlying history of coronary artery disease, cardiology was consulted. 9 left sided pneumothorax secondary to barotrauma, secondary to mechanical ventilation, patient is status post 2 thoracic vent tubes placed, followed by [place] chest tube placed by me. Recommendation: Continue mechanical ventilation, ventilatory support, address nutritional support today, start enteral feeding, continue same vent settings as ordered, continue antibiotics, sodium bicarb drip, continue GI and DVT prophylaxis, continue chest tubes to suction, continue propofol, Nimbex, and Dilaudid pressors, antibiotics, consider dialysis today, patient made a significant improvement over the last 24 hours, but of course he remains critically ill. Discussed the patient conditions with multiple consultants including infectious disease, nephrology, I also updated the family on his condition. Family is well aware of the grave prognosis, time spent on this patient is 65 minutes not including the time spent on placing an arterial line. Time with Patient: Greater than 30
[2019-02-19] MEDS ORDERED: ACETAMINOPHEN SUPPOSITORY 650 MG SUPP RECTAL STA (12:43)
--- NOTE | 2019-02-19 12:58 | PCN ---
PROCEDURE NOTE PREOP DIAGNOSIS: Acute on chronic renal failure. PROCEDURE PERFORMED: Ultrasound-guided dialysis catheter placement left femoral approach. DESCRIPTION OF PROCEDURE: This patient was seen in the intensive care unit. Patient has been intubated. Left groin was prepped and shaved and drapes applied in the usual sterile manner. 1% lidocaine infiltrated in the left groin area. After that, ultrasound-guided micropuncture introducer right femoral vein and micropuncture guidewire was passed. After that, we passed a 4-Greek dilator on the top of the micropuncture guidewire and we passed a regular guidewire and then we passed a dilator and then we placed a dialysis catheter on top of the guidewire. The guidewire was removed, flushed with heparin saline and hep-locked and secured with 3-0 nylon. Dressing applied. Patient tolerated the procedure well. MATT / DALIA: [id number] /
[2019-02-19] MEDS: HYDROmorphone 0.5 MG/0.5 ML SYRINGE IVP SCH ×5 (13:18→23:35)
[2019-02-19 13:19] LABS: ABG Base Excess -2.4 mmol/L; ABG HCO3 25 mmol/L (21-25); ABG Oxygen Saturation 95.2 % (94-97); ABG PCO2 58 mmHg (35-45); ABG PH 7.24 (7.35-7.45); ABG PO2 92 mmHg (83-108); ABG TCO2 27 mmol/L (19-24)
[2019-02-19] MEDS: SODIUM CHLORIDE 0.9% 1,000 ML IV SCH (13:19)
[2019-02-19] MEDS: NOREPINEPHRINE 32 MG in SODIUM CHLORIDE 0.9% 218 ML IV SCH ×2 (13:21→21:54)
[2019-02-19 13:51] LABS: Glucose,Whole Blood 95 mg/dL (75-99)
--- NOTE | 2019-02-19 14:03 | XR ---
EXAMINATION TYPE: XR chest 1V portable DATE OF EXAM: 02/19/2019 COMPARISON: 02/18/2019 INDICATION: Tube placement TECHNIQUE: Single frontal view of the chest is obtained. FINDINGS: The heart size is normal. The pulmonary vasculature is normal. Mild infiltrate may be at the right base. Some posterior left basilar infiltrate is present. These rock ve improved over the interval , Residual pneumothorax remains on the left. This has reexpanded from the comparison study. Left-ruma ed chest tube remains present Endotracheal tube tip is above the iban. Nasogastric tube transverses the thorax. Right central jania ous catheter is tip in the right atrium. No right-sided pneumothorax is evident. IMPRESSION: 1. Reexpansion of right pneumothorax with minimal less than 5% residual remaining. 2. Lines and catheters discussed above. 3. Improving bibasilar infiltrates.
--- NOTE | 2019-02-19 16:08 | P.PN ---
Subjective This is a 63 years old female with past medical history of congestive heart failure, coronary artery disease status post cardiac catheterization and stent placement. Patient presents with severe dyspnea, area she's been diagnosed with influenza a at urgent care parenchyma to the hospital. In the emergency room patient was found to be significantly dyspneic and hypoxic, and her blood pressure was on the low side. Patient eventually was intubated and transferred to the intensive care unit. Patient could not provide information so I was madi en from the chart. She has had oliguria, with lactic acidosis, acute renal failure. Chest x-ray showing left upper lobe infiltrate, with interstitial edema. Patient also has new elevated troponin for which head of merchandise buying has been consulted 02/18/2019 Patient remains in the ICU,chest x-ray this morning showing increased and the patient left side pneumothorax,patient has left chest thoravent placed this morning. With anolother thoraventhas to be placed againand eventually chest tube has to be placed with improvement in the pneumothorax. Input and help from cardiothoracic and pulmonary/crtical care team is appreciated.patient still tachycardic and on mechanical ventilation. Patient is also acidotic, and high lactic acid at 7.6. Patient remains on pressors to support his blood pressure. GI consult is appreciated, reevaluated the patient for coffee-ground emesis from NG tube rate hemoglobin stable, and as per the recommendation no need for endoscopic evaluation or therapy.patient is on Protonix twice a day 02/19/2019 Patient remains in the ICU. He is intubated and sedated. Vent management with pulmonary critical care team following the case closely. Patient remains on norepinephrine drip to support his blood pressure. Patient also with cautery hemodialysis today. He has a fever of 102. Tylenol as provided as well as local measures . WBC is 14.4 K. Creatinine went up from 5.5 to 7.23. Sputum culture is growing strep pyogenes. Patient is on clindamycin and Tamiflu. review of systems: N/a Objective - Vital Signs Vital signs: Vital Signs Temp 100.2 F H 02/19/19 14:15 Pulse 130 H 02/19/19 15:38 Resp 35 H 02/19/19 14:15 BP 96/59 02/19/19 14:15 Pulse Ox 96 02/19/19 14:15 Intake & Output 02/18/19 02/19/19 02/19/19 18:59 06:59 18:59 Intake Total 3088.549 2255.412 1787.016 Output Total 543 170 55 Balance 2545.549 2085.412 1732.016 Weight 110 kg 110 kg Intake: IV 2613.08 1595 1110 Calcium Gluconate 1 gm In 100 100 Sodium Chloride 0.9% 100 ml @ 100 mls/hr IVPB ONCE ONE Rx#:[id number] Cisatracurium 200 mg In 37.08 Sodium Chloride 0.9% 180 ml @ 1 MCG/KG/MIN 6.18 mls/hr IV .Q24H NI Rx#: [id number] Dextrose 5% in Water 1, 1550 1375 850 000 ml @ 100 mls/hr IV . [id number] NI with Sodium Bicarb (1 Meq/ml) 150 ml Rx#:[id number] Sodium Chloride 0.9% 1, 425 220 160 000 ml @ 20 mls/hr IV . Q24H NI Rx#:[id number] Vancomycin 1,750 mg In 501 Sodium Chloride 0.9% 500 ml 500 ml @ 167 mls/hr IVPB ONCE ONE Rx#: [id number] Intake, IV Titration 475.469 660.412 677.016 Amount ACETAMINOPHEN IV (For NPO 100 ) 1,000 mg In Empty Bag 1 bag @ 400 mls/hr IVPB ONCE ONE Rx#:[id number] ACETAMINOPHEN IV (For NPO 100 ) 1,000 mg In Empty Bag 1 bag @ 400 mls/hr IVPB ONCE ONE Rx#:[id number] ACETAMINOPHEN IV (For NPO 100 ) 1,000 mg In Empty Bag 1 bag @ 400 mls/hr IVPB ONCE STA Rx#:[id number] Cisatracurium 200 mg In 57.680 109.18 168.405 Sodium Chloride 0.9% 180 ml @ 1 MCG/KG/MIN 6.18 mls/hr IV .Q24H NI Rx#: [id number] Clindamycin 900 mg In 50 50 Dextrose 5% in Water 50 ml @ 50 mls/hr IVPB Q8HR NI Rx#:[id number] Levofloxacin 250Mg-D5w 50 Pmx 250 mg In Dextrose/ Water 1 50ml.bag @ 50 mls /hr IVPB Q24H NI Rx#: [id number] Norepinephrine 32 mg In 167.789 55.442 188.777 Sodium Chloride 0.9% 218 ml @ 0.05 MCG/KG/MIN 2. 233 mls/hr IV .Q24H NI Rx#:[id number] Propofol 1,000 mg In 100 295.79 169.834 Empty Bag 1 bag @ Titrate IV .Q0M NI Rx#: [id number] cefTRIAXone 2 gm In 50 Sodium Chloride 0.9% 50 ml @ 100 mls/hr IVPB Q24H NI Rx#:[id number] Output: Chest Tube Drainage 370 120 50 Chest Tube Left 370 120 50 Gastric Drainage 100 Urine 73 50 5 Other: Voiding Method Indwelling Catheter Indwelling Catheter ABP, PAP, CO, CI - Last Documented Arterial Blood Pressure 97/59 - Exam -GENERAL: The patient is intubated and sedated HEENT: Pupils are round and equally reacting to light. EOMI. No scleral icterus. No conjunctival pallor. Normocephalic, atraumatic. No pharyngeal erythema. No thyromegaly. CARDIOVASCULAR: S1 and S2 present. No murmurs, rubs, or gallops. -PULMONARY: Chest is bilateral harsh breath sounds, with scattered wheezing ABDOMEN: Soft, nontender, nondistended, normoactive bowel sounds. No palpable organomegaly. MUSCULOSKELETAL: No joint swelling or deformity. EXTREMITIES: No cyanosis, clubbing, or pedal edema. -NEUROLOGICAL:patient is sedated and intubated Gross neurological examination did not reveal any focal deficits. SKIN: No rashes. - Labs CBC & Chem 7: 02/19/19 05:40 02/19/19 05:40 Labs: Abnormal Lab Results - Last 24 Hours (Table) 02/18/19 02/18/19 02/18/19 Range/Units 15:12 16:20 19:04 WBC (3.8-10.6) k/uL Plt Count (150-450) k/uL Neutrophils # (Manual) (1.3-7.7) k/uL Metamyelocytes # (Man) (0) k/uL ABG pH 7.13 L* 7.32 L (7.35-7.45) ABG pCO2 74 H* (35-45) mmHg ABG pO2 56 L* 235 H (83-108) mmHg ABG Total CO2 27 H (19-24) mmol/L ABG O2 Saturation 83.2 L 99.6 H (94-97) % Sodium (137-145) mmol/L Potassium 5.6 H (3.5-5.1) mmol/L Chloride 108 H (98-107) mmol/L Carbon Dioxide 19 L (22-30) mmol/L BUN 61 H (9-20) mg/dL Creatinine 5.58 H (0.66-1.25) mg/dL Glucose 155 H (74-99) mg/dL POC Glucose (mg/dL) (75-99) mg/dL Calcium 4.9 L* (8.4-10.2) mg/dL Ionized Calcium Ann 3.0 L* (4.5-5.3) mg/dL Phosphorus 4.9 H (2.5-4.5) mg/dL Urine Protein (Negative) Urine Glucose (UA) (Negative) Urine Ketones (Negative) Urine Blood (Negative) Ur Leukocyte Esterase (Negative) 02/19/19 02/19/19 02/19/19 Range/Units 04:12 05:40 05:40 WBC 14.4 H (3.8-10.6) k/uL Plt Count 70 L (150-450) k/uL Neutrophils # (Manual) 12.60 H (1.3-7.7) k/uL Metamyelocytes # (Man) 0.14 H (0) k/uL ABG pH (7.35-7.45) ABG pCO2 (35-45) mmHg ABG pO2 (83-108) mmHg ABG Total CO2 (19-24) mmol/L ABG O2 Saturation (94-97) % Sodium 135 L (137-145) mmol/L Potassium 5.4 H (3.5-5.1) mmol/L Chloride (98-107) mmol/L Carbon Dioxide 21 L (22-30) mmol/L BUN 83 H (9-20) mg/dL Creatinine 7.23 H* (0.66-1.25) mg/dL Glucose 212 H (74-99) mg/dL POC Glucose (mg/dL) 195 H (75-99) mg/dL Calcium 5.4 L* (8.4-10.2) mg/dL Ionized Calcium Ann 3.0 L* (4.5-5.3) mg/dL Phosphorus 4.7 H (2.5-4.5) mg/dL Urine Protein (Negative) Urine Glucose (UA) (Negative) Urine Ketones (Negative) Urine Blood (Negative) Ur Leukocyte Esterase (Negative) 02/19/19 02/19/19 02/19/19 Range/Units 06:10 07:27 09:46 WBC (3.8-10.6) k/uL Plt Count (150-450) k/uL Neutrophils # (Manual) (1.3-7.7) k/uL Metamyelocytes # (Man) (0) k/uL ABG pH 7.28 L (7.35-7.45) ABG pCO2 53 H (35-45) mmHg ABG pO2 121 H (83-108) mmHg ABG Total CO2 25 H 26 H (19-24) mmol/L ABG O2 Saturation 98.3 H (94-97) % Sodium (137-145) mmol/L Potassium (3.5-5.1) mmol/L Chloride (98-107) mmol/L Carbon Dioxide (22-30) mmol/L BUN (9-20) mg/dL Creatinine (0.66-1.25) mg/dL Glucose (74-99) mg/dL POC Glucose (mg/dL) (75-99) mg/dL Calcium (8.4-10.2) mg/dL Ionized Calcium Ann (4.5-5.3) mg/dL Phosphorus (2.5-4.5) mg/dL Urine Protein 1+ H (Negative) Urine Glucose (UA) 1+ H (Negative) Urine Ketones 1+ H (Negative) Urine Blood Moderate H (Negative) Ur Leukocyte Esterase Trace H (Negative) 02/19/19 Range/Units 13:13 WBC (3.8-10.6) k/uL Plt Count (150-450) k/uL Neutrophils # (Manual) (1.3-7.7) k/uL Metamyelocytes # (Man) (0) k/uL ABG pH 7.24 L (7.35-7.45) ABG pCO2 58 H (35-45) mmHg ABG pO2 (83-108) mmHg ABG Total CO2 27 H (19-24) mmol/L ABG O2 Saturation (94-97) % Sodium (137-145) mmol/L Potassium (3.5-5.1) mmol/L Chloride (98-107) mmol/L Carbon Dioxide (22-30) mmol/L BUN (9-20) mg/dL Creatinine (0.66-1.25) mg/dL Glucose (74-99) mg/dL POC Glucose (mg/dL) (75-99) mg/dL Calcium (8.4-10.2) mg/dL Ionized Calcium Ann (4.5-5.3) mg/dL Phosphorus (2.5-4.5) mg/dL Urine Protein (Negative) Urine Glucose (UA) (Negative) Urine Ketones (Negative) Urine Blood (Negative) Ur Leukocyte Esterase (Negative) Microbiology - Last 24 Hours (Table) 02/18/19 11:45 Gram Stain - Preliminary Pleural Fluid Body Fluid Culture - Preliminary 02/17/19 12:54 Gram Stain - Final Sputum Sputum Culture - Final Strep pyogenes (grp a) 02/16/19 19:00 Blood Culture - Preliminary Blood No Growth after 48 hours Assessment and Plan Assessment: Acute respiratory failure status post intubation Septic shock secondary to influenza infection and pneumonia Left-sided pneumothorax, need chest tube stress induced hematemesis, evaluated by GI team Acute renal failure with oliguria Lactic acidosis Elevated troponin, evaluated by head of merchandise buying Plan: This is a 63 years old female who presents because of septic shock, secondary to pneumonia and influenza infection, renal failure, elevated troponin. lactic acid Pulmonary/critical care unit, head of merchandise buying and scratch polisher, lead custodian, cardiothoracic surgeon R following the patient. Patient to continue on antibiotics. Continue with aspirin. Patient is on steroids and IV fluids.. Product Inspection Supervisor recommended beta janice and echocardiogram.Labs and medication were reviewed.. Continue same treatment. Continue with symptomatic treatment. Resume home medication. Monitor lytes and vitals. DVT and GI prophylaxis. Further recommendations of the clinical course of the patient DVT prophylaxis: Subcutaneous Lovenox. Hemoglobin stable and patient is high- risk for thrombosis. Keep monitoring GI Prophylaxis: Protonix Prognosis is guarded
[2019-02-19 18:02] LABS: Glucose,Whole Blood 181 mg/dL (75-99)
[2019-02-19 18:33] LABS: Phosphorus 7.3 mg/dL (2.5-4.5)
[2019-02-19 18:41] LABS: Calcium 5.7 mg/dL (8.4-10.2)
[2019-02-19 18:42] LABS: Ionized Calcium 3.3 mg/dL (4.5-5.3); Potassium 4.8 mmol/L (3.5-5.1)
[2019-02-19] MEDS: SODIUM CHLORIDE 0.9% 150 ML with VASOPRESSIN 60 UNIT IV SCH ×2 (19:42)
--- NOTE | 2019-02-19 21:18 | P.PN ---
Subjective Progress Note Date: 02/19/19 63-year-old male who has a history of tobacco use, coronary artery disease and congestive heart failure with the family relates is medically disabled because of his cardiac disease. He was ill earlier this week when he went to the walk-in clinic on Wednesday at that point in time was found to have evidence of fever and chest congestion. Influenza testing was positive for influenza a the patient was started on Tamiflu. The patient however then developed progressive decline of his status and on the presented to the emergency center. At that point in time he was profoundly ill with hypoxia, acidosis, and renal failure. He simply was admitted for intensive care unit he was intubated and has been sedated and mechanically ventilated. He is without significant hypotension is required multiple vasopressor agents that include Levophed and vasopressin, and has been treated with stress doses of steroids. The patient had worsening of his status and with his worsening pneumonia and refractory sepsis the infectious diseases consultation was requested. The patient's family is present. Relates that he has been with a declining medical status for some time but became acutely ill recently. None of the other family members are ill at this time. As noted the patient is intubated, sedated and mechanically ventilated and paralyzed further information from the family. The patient's status did worsen with a spontaneous pneumothorax which resulted in placement of two thoaravent devices which did not resolve the pneumothorax and constantly a chest tube was applied which has resolved most of the pneumothorax. As noted despite this remains hemodynamically unstable. 02/19/2019 the patient has had fever overnight. 102.1 recently. Intravenously acetaminophen has been given. With the change in the patient's PEEP to 16 there has now been a marked improvement of his oxygenation. He is on lower doses of vasopressor but remains with his acute renal failure and he is anicteric. As noted his sputum is evidence of Streptococcus pyogenes superimposed on influenza A. The case has been discussed with pulmonary critical care as well as nephrology. Objective - Vital Signs Vital signs: Vital Signs Temp 100.1 F H 02/19/19 18:00 Pulse 122 H 02/19/19 20:02 Resp 36 H 02/19/19 19:30 BP 118/70 02/19/19 19:15 Pulse Ox 96 02/19/19 19:30 Intake & Output 02/19/19 02/19/19 02/20/19 06:59 18:59 06:59 Intake Total 2255.412 2529.458 289.673 Output Total 170 125 0 Balance 2085.412 2404.458 289.673 Weight 110 kg 110 kg Intake: IV 1595 1590 120 Calcium Gluconate 1 gm In 100 Sodium Chloride 0.9% 100 ml @ 100 mls/hr IVPB ONCE ONE Rx#:[id number] Dextrose 5% in Water 1, 1375 1250 100 000 ml @ 100 mls/hr IV . [id number] NI with Sodium Bicarb (1 Meq/ml) 150 ml Rx#:[id number] Sodium Chloride 0.9% 1, 220 240 20 000 ml @ 20 mls/hr IV . Q24H [facility] Rx#:[id number] Intake, IV Titration 660.412 789.458 139.673 Amount ACETAMINOPHEN IV (For NPO 100 ) 1,000 mg In Empty Bag 1 bag @ 400 mls/hr IVPB ONCE ONE Rx#:[id number] ACETAMINOPHEN IV (For NPO 100 ) 1,000 mg In Empty Bag 1 bag @ 400 mls/hr IVPB ONCE STA Rx#:[id number] Cisatracurium 200 mg In 109.18 185.915 Sodium Chloride 0.9% 180 ml @ 1 MCG/KG/MIN 6.18 mls/hr IV .Q24H [facility] Rx#: [id number] Clindamycin 900 mg In 50 100 Dextrose 5% in Water 50 ml @ 50 mls/hr IVPB Q8HR [facility] Rx#:[id number] Norepinephrine 32 mg In 55.442 233.709 39.673 Sodium Chloride 0.9% 218 ml @ 0.05 MCG/KG/MIN 2. 233 mls/hr IV .Q24H [facility] Rx#:[id number] Propofol 1,000 mg In 295.79 169.834 100 Empty Bag 1 bag @ Titrate IV .Q0M [facility] Rx#: [id number] cefTRIAXone 2 gm In 50 Sodium Chloride 0.9% 50 ml @ 100 mls/hr IVPB Q24H [facility] Rx#:[id number] Tube Feeding 120 30 Other 30 Output: Chest Tube Drainage 120 115 Chest Tube Left 120 80 Thora-Vent Left Upper Mid 35 -Clavicular Chest Urine 50 10 0 Other: Voiding Method Indwelling Catheter Indwelling Catheter ABP, PAP, CO, CI - Last Documented Arterial Blood Pressure 113/64 - Exam 63-year-old male HEENT: Anicteric conjunctiva are pale but moist nasal mucosa grossly intact without significant lesions, there is no thrush noted around the endotracheal tube. No evidence of bleeding Neck: The neck is supple without significant lymphadenopathy or thyromegaly. Lungs: There is symmetrical air entry however very coarse bronchial sounds are heard in all lung garsia and still amphoric sounds in the anterior aspect of the left chest where the Heart: Tachycardic no murmur is noted Abdomen: Abdomen has few bowel sounds, it is soft minimally distended and can palpate no mass or organomegaly Extremities: The extremities have some generalized edema, hands and feet are cool to touch mild bluish discoloration is noted,but no necrosis or ulcerations are seen Neuro: Sedated paralyzed mechanically ventilated - Labs CBC & Chem 7: 02/19/19 05:40 02/19/19 17:47 Labs: Abnormal Lab Results - Last 24 Hours (Table) 02/19/19 02/19/19 02/19/19 Range/Units 04:12 05:40 05:40 WBC 14.4 H (3.8-10.6) k/uL Plt Count 70 L (150-450) k/uL Neutrophils # (Manual) 12.60 H (1.3-7.7) k/uL Metamyelocytes # (Man) 0.14 H (0) k/uL ABG pH (7.35-7.45) ABG pCO2 (35-45) mmHg ABG pO2 (83-108) mmHg ABG Total CO2 (19-24) mmol/L ABG O2 Saturation (94-97) % Sodium 135 L (137-145) mmol/L Potassium 5.4 H (3.5-5.1) mmol/L Carbon Dioxide 21 L (22-30) mmol/L BUN 83 H (9-20) mg/dL Creatinine 7.23 H* (0.66-1.25) mg/dL Glucose 212 H (74-99) mg/dL POC Glucose (mg/dL) 195 H (75-99) mg/dL Calcium 5.4 L* (8.4-10.2) mg/dL Ionized Calcium Ann 3.0 L* (4.5-5.3) mg/dL Phosphorus 4.7 H (2.5-4.5) mg/dL Urine Protein (Negative) Urine Glucose (UA) (Negative) Urine Ketones (Negative) Urine Blood (Negative) Ur Leukocyte Esterase (Negative) 02/19/19 02/19/19 02/19/19 Range/Units 06:10 07:27 09:46 WBC (3.8-10.6) k/uL Plt Count (150-450) k/uL Neutrophils # (Manual) (1.3-7.7) k/uL Metamyelocytes # (Man) (0) k/uL ABG pH 7.28 L (7.35-7.45) ABG pCO2 53 H (35-45) mmHg ABG pO2 121 H (83-108) mmHg ABG Total CO2 25 H 26 H (19-24) mmol/L ABG O2 Saturation 98.3 H (94-97) % Sodium (137-145) mmol/L Potassium (3.5-5.1) mmol/L Carbon Dioxide (22-30) mmol/L BUN (9-20) mg/dL Creatinine (0.66-1.25) mg/dL Glucose (74-99) mg/dL POC Glucose (mg/dL) (75-99) mg/dL Calcium (8.4-10.2) mg/dL Ionized Calcium Ann (4.5-5.3) mg/dL Phosphorus (2.5-4.5) mg/dL Urine Protein 1+ H (Negative) Urine Glucose (UA) 1+ H (Negative) Urine Ketones 1+ H (Negative) Urine Blood Moderate H (Negative) Ur Leukocyte Esterase Trace H (Negative) 02/19/19 02/19/19 02/19/19 Range/Units 13:13 17:47 17:51 WBC (3.8-10.6) k/uL Plt Count (150-450) k/uL Neutrophils # (Manual) (1.3-7.7) k/uL Metamyelocytes # (Man) (0) k/uL ABG pH 7.24 L (7.35-7.45) ABG pCO2 58 H (35-45) mmHg ABG pO2 (83-108) mmHg ABG Total CO2 27 H (19-24) mmol/L ABG O2 Saturation (94-97) % Sodium 135 L (137-145) mmol/L Potassium (3.5-5.1) mmol/L Carbon Dioxide (22-30) mmol/L BUN 70 H (9-20) mg/dL Creatinine 6.56 H (0.66-1.25) mg/dL Glucose 187 H (74-99) mg/dL POC Glucose (mg/dL) 181 H (75-99) mg/dL Calcium 5.7 L* (8.4-10.2) mg/dL Ionized Calcium Ann 3.3 L* (4.5-5.3) mg/dL Phosphorus 7.3 H (2.5-4.5) mg/dL Urine Protein (Negative) Urine Glucose (UA) (Negative) Urine Ketones (Negative) Urine Blood (Negative) Ur Leukocyte Esterase (Negative) Microbiology - Last 24 Hours (Table) 02/16/19 19:00 Blood Culture - Preliminary Blood No Growth after 72 hours 02/18/19 11:45 Gram Stain - Preliminary Pleural Fluid Body Fluid Culture - Preliminary 02/17/19 12:54 Gram Stain - Final Sputum Sputum Culture - Final Strep pyogenes (grp a) Laboratory Results WBC 14.4 k/uL (3.8-10.6) H 02/19/19 05:40 RBC 4.39 m/uL (4.30-5.90) 02/19/19 05:40 Hgb 15.0 gm/dL (13.0-17.5) 02/19/19 05:40 Hct 43.4 % (39.0-53.0) 02/19/19 05:40 MCV 98.8 fL (80.0-100.0) 02/19/19 05:40 MCH 34.1 pg (25.0-35.0) 02/19/19 05:40 MCHC 34.5 g/dL (31.0-37.0) 02/19/19 05:40 RDW 15.0 % (11.5-15.5) 02/19/19 05:40 Plt Count 70 k/uL (150-450) L 02/19/19 05:40 Neutrophils % (Manual) 83 % 02/19/19 05:40 Band Neutrophils % 5 % 02/19/19 05:40 Lymphocytes % (Manual) 9 % 02/19/19 05:40 Monocytes % (Manual) 2 % 02/19/19 05:40 Metamyelocytes % 1 % 02/19/19 05:40 Myelocytes % 4 % 02/16/19 19:00 Neutrophils # (Manual) 12.60 k/uL (1.3-7.7) H 02/19/19 05:40 Lymphocytes # (Manual) 1.30 k/uL (1.0-4.8) 02/19/19 05:40 Monocytes # (Manual) 0.29 k/uL (0-1.0) 02/19/19 05:40 Metamyelocytes # (Man) 0.14 k/uL (0) H 02/19/19 05:40 Myelocytes # (Manual) 0.53 k/uL (0) H 02/16/19 19:00 Nucleated RBCs 0 /100 WBC (0-0) 02/19/19 05:40 Manual Slide Review Performed 02/19/19 05:40 Toxic Granulation Present 02/17/19 04:20 Toxic Vacuolation Present 02/18/19 04:15 Large Platelets Present 02/16/19 19:00 Macrocytosis Slight 02/16/19 19:00 PT 10.9 sec (9.0-12.0) 02/16/19 19:00 INR 1.0 (<1.2) 02/16/19 19:00 APTT 30.0 sec (22.0-30.0) 02/16/19 19:00 Sample Site a line 02/19/19 13:13 ABG pH 7.24 (7.35-7.45) L 02/19/19 13:13 ABG pCO2 58 mmHg (35-45) H 02/19/19 13:13 ABG pO2 92 mmHg (83-108) 02/19/19 13:13 ABG HCO3 25 mmol/L (21-25) 02/19/19 13:13 ABG Total CO2 27 mmol/L (19-24) H 02/19/19 13:13 ABG O2 Saturation 95.2 % (94-97) 02/19/19 13:13 ABG Base Excess -2.4 mmol/L 02/19/19 13:13 Lyndon Test no 02/19/19 13:13 FiO2 50 % 02/19/19 13:13 Sodium 135 mmol/L (137-145) L 02/19/19 17:47 Potassium 4.8 mmol/L (3.5-5.1) 02/19/19 17:47 Chloride 100 mmol/L (98-107) 02/19/19 17:47 Carbon Dioxide 22 mmol/L (22-30) 02/19/19 17:47 Anion Gap 13 mmol/L 02/19/19 17:47 BUN 70 mg/dL (9-20) H 02/19/19 17:47 Creatinine 6.56 mg/dL (0.66-1.25) H 02/19/19 17:47 Est GFR (CKD-EPI)AfAm 10 (>60 ml/min/1.73 sqM) 02/19/19 17:47 Est GFR (CKD-EPI)NonAf 8 (>60 ml/min/1.73 sqM) 02/19/19 17:47 Glucose 187 mg/dL (74-99) H 02/19/19 17:47 POC Glucose (mg/dL) 181 mg/dL (75-99) H 02/19/19 17:51 POC Glu Supervisor Taping ID Jacqui Panchal 02/19/19 17:51 Lactic Ac Sepsis Rflx Y 02/17/19 22:57 Plasma Lactic Acid Tra 7.6 mmol/L (0.7-2.0) H* 02/18/19 04:15 Calcium 5.7 mg/dL (8.4-10.2) L* 02/19/19 17:47 Ionized Calcium Ann 3.3 mg/dL (4.5-5.3) L* 02/19/19 17:47 Phosphorus 7.3 mg/dL (2.5-4.5) H 02/19/19 17:47 Magnesium 2.0 mg/dL (1.6-2.3) 02/19/19 17:47 Total Bilirubin 3.5 mg/dL (0.2-1.3) H 02/16/19 19:00 AST 51 U/L (17-59) 02/16/19 19:00 ALT 29 U/L (21-72) 02/16/19 19:00 Alkaline Phosphatase 103 U/L (38-126) 02/16/19 19:00 Troponin I 4.250 ng/mL (0.000-0.034) H* 02/18/19 04:15 NT-Pro-B Natriuret Pep 4770 pg/mL 02/16/19 19:00 Total Protein 7.0 g/dL (6.3-8.2) 02/16/19 19:00 Albumin 3.8 g/dL (3.5-5.0) 02/16/19 19:00 Urine Color Dark Brown 02/19/19 06:10 Urine Appearance Cloudy (Clear) 02/19/19 06:10 Urine pH 5.0 (5.0-8.0) 02/19/19 06:10 Ur Specific [place] 1.019 (1.001-1.035) 02/19/19 06:10 Urine Protein 1+ (Negative) H 02/19/19 06:10 Urine Glucose (UA) 1+ (Negative) H 02/19/19 06:10 Urine Ketones 1+ (Negative) H 02/19/19 06:10 Urine Blood Moderate (Negative) H 02/19/19 06:10 Urine Nitrite Negative (Negative) 02/19/19 06:10 Urine Bilirubin Negative (Negative) 02/19/19 06:10 Urine Urobilinogen <2.0 mg/dL (<2.0) 02/19/19 06:10 Ur Leukocyte Esterase Trace (Negative) H 02/19/19 06:10 Urine RBC 1 /hpf (0-5) 02/19/19 06:10 Urine WBC 1 /hpf (0-5) 02/19/19 06:10 Random Vancomycin 28.4 ug/mL 02/19/19 05:40 Microbiology 02/16/19 19:00 Blood Blood Culture - Preliminary No Growth after 72 hours 02/18/19 11:45 Pleural Fluid Gram Stain - Preliminary 02/18/19 11:45 Pleural Fluid Body Fluid Culture - Preliminary 02/17/19 12:54 Sputum Gram Stain - Final 02/17/19 12:54 Sputum Sputum Culture - Final Strep pyogenes (grp a) 02/17/19 10:00 Urine,Catheterized Urine Culture - Final - Imaging and Cardiology Chest x-ray: report reviewed (Pneumothorax stable) Assessment and Plan (1) Influenza A Current Visit: Yes Status: Acute Code(s): J10.1 - FLU DUE TO OTH IDENT INFLUENZA VIRUS W OTH RESP MANIFEST SNOMED Code(s): 720009774 (2) Pneumonia and influenza Narrative/Plan: 63-year-old male who is a history of underlying cardiovascular disease and has been medically disabled presents to Hospital with a relatively short history of influenza A. The patient has the rapid onset of progressive shortness of breath and has now developed respiratory failure, acute lung injury with acute renal failure. Pulmonary critical care is having difficulties of adequate oxygenation and the patient has poor urinary output. His and seen by nephrology and they're contemplating Sled therapy if his hypotension can be furt her managed. Influenza A is associated with aggressive pneumonia staph aureus and Streptococcus pyogenes given associated with severe necrotizing pneumonia directly links to the influenza infection. We'll continue the active treatment of the influenza with the Tamiflu. Antibiotic therapy with vancomycin and Levaquin has been utilized pending further data. Of note if the patient has been seen the laboratory relates that showed enterococcus biopsies has been isolated in the respiratory secretions. Concern this is a super antigen type strain and constantly antibiotic therapy is altered to ceftriaxone ( with penicillin ALLERGY) and clindamycin was added to attempt to reduce toxin production. Overall prognosis is very poor. 02/19/2019 the patient has now had some measurable improvement. When the PEEP was increased to 16 the patient started fractionate much better and is now had further improvement of several of his parameters including improved hypotension. However has acute renal failure and the case has been discussed with medical care and nephrology. IV access for dialysis is to be placed and hopefully will be over start dialysis soon. As patient is more hemodynamically stable. The antimicrobial therapy with Rocephin and clindamycin are being utilizes point in time. Patient likely has a super antigen strain of strep resulting in the current profound level of illness. Current Visit: Yes Status: Acute Code(s): J11.00 - FLU DUE TO UNIDENTIFIED FLU VIRUS W UNSP TYPE OF PNEUMONIA SNOMED Code(s): 081243950 (3) Acute renal failure Current Visit: Yes Status: Acute Code(s): N17.9 - ACUTE KIDNEY FAILURE, UNSPECIFIED SNOMED Code(s): 50649815
[2019-02-19 23:43] LABS: Glucose,Whole Blood 128 mg/dL (75-99)
[2019-02-20] MEDS: CLINDAMYCIN 900 MG in DEXTROSE 5% IN WATER 50 ML IVPB SCH ×6 (00:05→16:56)
[2019-02-20] MEDS: DEXTROSE 5% IN WATER 1,000 ML with SODIUM BICARB (1 MEQ/ML) 150 ML IV SCH ×2 (01:00→13:38)
[2019-02-20] MEDS: INSULIN ASPART (NovoLOG) 100 UNIT/ML VIAL SQ SCH ×4 (01:53→18:32)
[2019-02-20] MEDS: PROPOFOL 1,000 MG in EMPTY BAG 1 BAG IV SCH ×3 (03:12→13:37)
[2019-02-20] MEDS: HYDROmorphone 0.5 MG/0.5 ML SYRINGE IVP SCH ×7 (03:13→21:05)
[2019-02-20] MEDS: ARTIFICIAL TEARS-HYPROMELLOSE DROPS 15 ML BTL BOTH EYES SCH ×5 (03:16→21:15)
[2019-02-20] MEDS: HYDROCORTISONE SUCCINATE 100 MG/2 ML VIAL IV SCH ×3 (03:20→21:16)
[2019-02-20] MEDS: IPRATROPIUM-ALBUTEROL 3 ML NEB INHALATION SCH ×6 (03:34→23:21)
[2019-02-20 04:32] LABS: ABG HCO3 26 mmol/L (21-25); ABG Oxygen Saturation 95.4 % (94-97); ABG PCO2 54 mmHg (35-45); ABG PH 7.29 (7.35-7.45); ABG PO2 85 mmHg (83-108); ABG TCO2 27 mmol/L (19-24)
[2019-02-20 05:07] LABS: HCT 39.1 % (39.0-53.0); HGB 13.6 gm/dL (13.0-17.5); MCHC 34.8 g/dL (31.0-37.0); MCV 97.9 fL (80.0-100.0); Mean Platelet Volume 9.2; RBC 3.99 m/uL (4.30-5.90); RDW 14.5 % (11.5-15.5); WBC 18.5 k/uL (3.8-10.6)
[2019-02-20 05:08] LABS: Platelet Count 35 k/uL (150-450)
[2019-02-20 05:23] LABS: Magnesium 2.1 mg/dL (1.6-2.3); Phosphorus 8.7 mg/dL (2.5-4.5); Potassium 4.8 mmol/L (3.5-5.1)
[2019-02-20 05:26] LABS: Ionized Calcium 3.1 mg/dL (4.5-5.3)
[2019-02-20 05:27] LABS: Vancomycin,Random 19.3 ug/mL
[2019-02-20 05:31] LABS: Calcium 5.5 mg/dL (8.4-10.2)
[2019-02-20 05:55] LABS: Glucose,Whole Blood 237 mg/dL (75-99)
[2019-02-20] MEDS ORDERED: DEXTROSE 5% IN WATER 1,000 ML with SODIUM BICARB (1 MEQ/ML) 150 ML IV SCH (08:00)
[2019-02-20] MEDS: NOREPINEPHRINE 32 MG in SODIUM CHLORIDE 0.9% 218 ML IV SCH ×2 (08:27→18:40)
[2019-02-20] MEDS ORDERED: CALCIUM GLUCONATE 2 GM in SODIUM CHLORIDE 0.9% 100 ML IVPB ONE (08:45)
--- NOTE | 2019-02-20 08:56 | XR ---
EXAMINATION TYPE: XR chest 1V portable DATE OF EXAM: 02/20/2019 COMPARISON: 02/19/2018 HISTORY: Tube placement TECHNIQUE: Single frontal view of the chest is obtained. FINDINGS: There is interval increase in size of the left-sided pneumothorax with a chest tube seen i n position. Subcutaneous emphysema noted. Now measures approximately 25-30 %. Report called to patien t's nurse. Bilateral infiltrate and subsegmental consolidation noted. Heart size stable. Central line, ET tube a nd NG tube stable. IMPRESSION: Interval increase in size of left-sided pneumothorax now measuring approximately 25-30%. Report called to patient's nurse..
--- NOTE | 2019-02-20 09:24 | PN ---
PROGRESS NOTE This is a 63-year-old patient who was admitted on February 16. He was admitted with a diagnosis of influenza, respiratory failure and pneumonia involving the left lung. The patient presented with acute septic shock secondary to influenza infection and also Strep pyogenes pneumonia. The patient developed ARDS. In addition, the patient has a history of left-sided pneumothorax. He has got 2 Thora-Vents on the left and one chest tube on the left. He is leaking from all 3. He has a history of acute kidney injury, CAD with previous stent placement, hypoxemic respiratory failure, profound metabolic acidosis, elevated troponin levels and as I mentioned above, left-sided pneumothorax. Currently, the patient is doing poorly in my opinion. He was admitted on the and intubated on the . Currently, he is on the volume assist-control mode rate of 36, tidal volume 500, FiO2 50%, PEEP of 16. Blood gases show pO2 of 85, a pCO2 of 54 and a pH of 7.287. He has also got Strep pyogenes noted on microbiologic analysis. He started on hemodialysis yesterday. He is on a bicarb drip with 3 amps of sodium bicarbonate and D5W at 100 mL an hour, Nimbex at 1 mcg/kg per minute and propofol at 30 mcg/kg per minute. The patient is also receiving norepinephrine at 16 mcg/minute and a 0.9 IV at KVO. The Strep pyogenes was noted in the sputum. Currently, he is still sedated and paralyzed and difficult to assess. Current vital signs are reviewed. His most recent temperature is 99.6, heart rate 115, respiratory rate is 36, and his blood pressure is 93/55 with a mean 74. Saturations are in the mid 90s. Appears relatively stable, but currently he is sedated and paralyzed. HEENT examination is grossly unremarkable. He has got an orally placed endotracheal tube and NG tube. NECK: Supple. Full range of motion. No adenopathy or thyromegaly. Neck veins are flat. Cardiovascular examination reveals tachycardia. It is regular. S1, S2 normal. Heart rate about 115. Lungs reveal coarse inspiratory and expiratory rhonchi. His adventitious lung sounds are more abnormal on the left side. Breath sounds are diminished throughout, but equal bilaterally. No crackles. Abdomen is soft. Bowel sounds are noted. Extremities reveal some significant acrocyanosis with livedo reticularis and mottling. His extremities are cold. Skin without rash other than that was mentioned above. Neurologic examination obviously could not be evaluated properly given the fact the patient is sedated and paralyzed. Current laboratory data includes a white count 18.5, hemoglobin 13.6, hematocrit 39.1, platelet count only 35,000. Blood gases as mentioned reveal a respiratory acidosis. His sodium 135, potassium 4.8, chloride 97, CO2 is 23. Anion gap 15. BUN and creatinine were 81 and 7.13, up from 70 and 6.56 yesterday. Calcium is 5.5, ionized calcium was low at 3.1. Chest x-ray from this morning shows worsening of left sided pneumothorax. Chest tube is noted. Two thora-vents are noted. Microbiology shows evidence of Strep pyogenes in the sputum from 02/17. Medications are reviewed. The patient is on a whole host of medications including Tylenol for fever, IV, updrafts with albuterol and Atrovent q.4. artificial Tears, aspirin, calcium gluconate supplementation, Rocephin, chlorhexidine, Nimbex, clindamycin, Lovenox, hydrocortisone for adrenal insufficiency at 100 mg q.8, Dilaudid p.r.n., insulin, Ativan p.r.n., magnesium replacement, nicotine patch, norepinephrine, Zofran, Tamiflu, Protonix, propofol and vasopressin, which is currently now off. ASSESSMENT: 1. Acute hypoxemic respiratory failure requiring intubation and mechanical ventilation on February 17 with development of acute respiratory distress syndrome, likely secondary to sepsis. 2. Acute septic shock secondary to influenza infection, complicated by Streptococcus pyogenes pneumonia. 3. Left-sided pneumothorax, status post Thora-Vent x2 and left chest tube. 4. Acute pneumonia secondary to Streptococcus pyogenes. 5. Acute sepsis/septic shock. 6. Acute kidney injury secondary to acute tubular necrosis, beginning dialysis on February 19. 7. History of coronary artery disease with previous stent placement. 8. Profound metabolic acidosis secondary to shock. 9. Mild fluid overload. 10.Elevated troponins, which may likely more reflect supply demand mismatch and ischemia. PLAN: The patient is currently on the mechanical ventilator. His vent settings appear to be relatively appropriate. His oxygenation is reasonable. His gas exchange is reasonable. The patient continues to have leaks from the chest tubes and Thora- Vent on the left side. The patient is currently on a bicarbonate drip. He is receiving both Nimbex and propofol for sedation and paralysis respectively. He is still requiring norepinephrine at 16 mcg/kg per minute. His exam reveals evidence of significant livedo reticularis and mottling with acrocyanosis. Overall prognosis in my opinion remains very poor. He has got multiorgan system failure. Apparently, Dr. Oates did talk to the family about the poor prognosis. We will continue to monitor. Additional recommendations and suggestions are forthcoming. CRITICAL CARE TIME: 37 minutes. LAURAL / LELIAN: [id number] / [id number]
--- NOTE | 2019-02-20 09:41 | P.PN ---
Subjective This is a 63 years old female with past medical history of congestive heart failure, coronary artery disease status post cardiac catheterization and stent placement. Patient presents with severe dyspnea, area she's been diagnosed with influenza a at urgent care parenchyma to the hospital. In the emergency room patient was found to be significantly dyspneic and hypoxic, and her blood pressure was on the low side. Patient eventually was intubated and transferred to the intensive care unit. Patient could not provide information so I was madi en from the chart. She has had oliguria, with lactic acidosis, acute renal failure. Chest x-ray showing left upper lobe infiltrate, with interstitial edema. Patient also has new elevated troponin for which envelope folding machine adjuster has been consulted 02/18/2019 Patient remains in the ICU,chest x-ray this morning showing increased and the patient left side pneumothorax,patient has left chest thoravent placed this morning. With anolother thoraventhas to be placed againand eventually chest tube has to be placed with improvement in the pneumothorax. Input and help from cardiothoracic and pulmonary/crtical care team is appreciated.patient still tachycardic and on mechanical ventilation. Patient is also acidotic, and high lactic acid at 7.6. Patient remains on pressors to support his blood pressure. GI consult is appreciated, reevaluated the patient for coffee-ground emesis from NG tube rate hemoglobin stable, and as per the recommendation no need for endoscopic evaluation or therapy.patient is on Protonix twice a day 02/19/2019 Patient remains in the ICU. He is intubated and sedated. Vent management with pulmonary critical care team following the case closely. Patient remains on norepinephrine drip to support his blood pressure. Patient also with cautery hemodialysis today. He has a fever of 102. Tylenol as provided as well as local measures . WBC is 14.4 K. Creatinine went up from 5.5 to 7.23. Sputum culture is growing strep pyogenes. Patient is on clindamycin and Tamiflu. 02/20/2019 pt remains in the ICU and he is still intubated and vent is been managed by the pulmonary/critical care unit. His repeat chest x-ray from today shows interval increase in size of the left side pneumothorax which measured approximately 25- 30%. Patient remains on chest tube and thoracic vent. And pulmonary team also the case. Patient today has cyanosis of the fingers and toes, most likely secondarily appropriate doses is decreased, his pressor management is by the pulmonary critical care unit. And removal of the recommendation. pt is on ceftriaxone and clindamycin. His WBC is 18.5 K. PH 7.2. Creatinine went up to 7.23. Calcium 5.5. Nephrology team are planning for dialysis. An Tamiflu. Patient has been followed by several consultants including pulmonary, cardiology, nephrology, infectious disease. Discussed with her today and her questions were answered to her satisfaction. review of systems: N/a Objective - Vital Signs Vital signs: Vital Signs Temp 98.6 F 02/20/19 08:00 Pulse 116 H 02/20/19 08:00 Resp 36 H 02/20/19 08:00 BP 99/67 02/20/19 03:00 Pulse Ox 96 02/20/19 08:00 Intake & Output 02/19/19 02/20/19 02/20/19 18:59 06:59 18:59 Intake Total 2529.458 1991.768 237.126 Output Total 125 25 15 Balance 2404.458 1966.768 222.126 Weight 110 kg 112 kg Intake: IV 1590 540 40 Calcium Gluconate 1 gm In 100 Sodium Chloride 0.9% 100 ml @ 100 mls/hr IVPB ONCE ONE Rx#:[id number] Dextrose 5% in Water 1, 1250 300 000 ml @ 50 mls/hr IV . Q23H NI with Sodium Bicarb (1 Meq/ml) 150 ml Rx#:[id number] Sodium Chloride 0.9% 1, 240 240 40 000 ml @ 20 mls/hr IV . Q24H NI Rx#:[id number] Intake, IV Titration 118.824 1537.768 197.126 Amount ACETAMINOPHEN IV (For NPO 100 ) 1,000 mg In Empty Bag 1 bag @ 400 mls/hr IVPB ONCE ONE Rx#:[id number] Cisatracurium 200 mg In 185.915 148.32 Sodium Chloride 0.9% 180 ml @ 1 MCG/KG/MIN 6.18 mls/hr IV .Q24H NI Rx#: [id number] Clindamycin 900 mg In 100 Dextrose 5% in Water 50 ml @ 50 mls/hr IVPB Q8HR NI Rx#:[id number] Dextrose 5% in Water 1, 800 150 000 ml @ 50 mls/hr IV . Q23H NI with Sodium Bicarb (1 Meq/ml) 150 ml Rx#:[id number] Norepinephrine 32 mg In 233.709 125.698 16.55 Sodium Chloride 0.9% 218 ml @ 0.05 MCG/KG/MIN 2. 233 mls/hr IV .Q24H NI Rx#:[id number] Propofol 1,000 mg In 169.834 257.750 30.576 Empty Bag 1 bag @ Titrate IV .Q0M NI Rx#: [id number] Tube Feeding 120 120 Other 30 Output: Chest Tube Drainage 115 Chest Tube Left 80 Thora-Vent Left Upper Mid 35 -Clavicular Chest Urine 10 25 15 Other: Voiding Method Indwelling Catheter Indwelling Catheter ABP, PAP, CO, CI - Last Documented Arterial Blood Pressure 109/64 - Exam -GENERAL: The patient is intubated and sedated HEENT: Pupils are round and equally reacting to light. EOMI. No scleral icterus. No conjunctival pallor. Normocephalic, atraumatic. No pharyngeal erythema. No thyromegaly. CARDIOVASCULAR: S1 and S2 present. No murmurs, rubs, or gallops. -PULMONARY: Chest is bilateral harsh breath sounds, with scattered wheezing ABDOMEN: Soft, nontender, nondistended, normoactive bowel sounds. No palpable organomegaly. MUSCULOSKELETAL: No joint swelling or deformity. EXTREMITIES: No cyanosis, clubbing, or pedal edema. -NEUROLOGICAL:patient is sedated and intubated Gross neurological examination did not reveal any focal deficits. SKIN: No rashes. - Labs CBC & Chem 7: 02/20/19 04:35 02/20/19 04:35 Labs: Abnormal Lab Results - Last 24 Hours (Table) 02/19/19 02/19/19 02/19/19 Range/Units 09:46 13:13 17:47 WBC (3.8-10.6) k/uL RBC (4.30-5.90) m/uL Plt Count (150-450) k/uL ABG pH 7.28 L 7.24 L (7.35-7.45) ABG pCO2 53 H 58 H (35-45) mmHg ABG HCO3 (21-25) mmol/L ABG Total CO2 26 H 27 H (19-24) mmol/L Sodium 135 L (137-145) mmol/L Chloride (98-107) mmol/L BUN 70 H (9-20) mg/dL Creatinine 6.56 H (0.66-1.25) mg/dL Glucose 187 H (74-99) mg/dL POC Glucose (mg/dL) (75-99) mg/dL Calcium 5.7 L* (8.4-10.2) mg/dL Ionized Calcium Ann 3.3 L* (4.5-5.3) mg/dL Phosphorus 7.3 H (2.5-4.5) mg/dL 02/19/19 02/19/19 02/20/19 Range/Units 17:51 23:32 04:30 WBC (3.8-10.6) k/uL RBC (4.30-5.90) m/uL Plt Count (150-450) k/uL ABG pH 7.29 L (7.35-7.45) ABG pCO2 54 H (35-45) mmHg ABG HCO3 26 H (21-25) mmol/L ABG Total CO2 27 H (19-24) mmol/L Sodium (137-145) mmol/L Chloride (98-107) mmol/L BUN (9-20) mg/dL Creatinine (0.66-1.25) mg/dL Glucose (74-99) mg/dL POC Glucose (mg/dL) 181 H 128 H (75-99) mg/dL Calcium (8.4-10.2) mg/dL Ionized Calcium Ann (4.5-5.3) mg/dL Phosphorus (2.5-4.5) mg/dL 02/20/19 02/20/19 02/20/19 Range/Units 04:35 04:35 05:44 WBC 18.5 H (3.8-10.6) k/uL RBC 3.99 L (4.30-5.90) m/uL Plt Count 35 L (150-450) k/uL ABG pH (7.35-7.45) ABG pCO2 (35-45) mmHg ABG HCO3 (21-25) mmol/L ABG Total CO2 (19-24) mmol/L Sodium 135 L (137-145) mmol/L Chloride 97 L (98-107) mmol/L BUN 81 H (9-20) mg/dL Creatinine 7.13 H* (0.66-1.25) mg/dL Glucose 242 H (74-99) mg/dL POC Glucose (mg/dL) 237 H (75-99) mg/dL Calcium 5.5 L* (8.4-10.2) mg/dL Ionized Calcium Ann 3.1 L* (4.5-5.3) mg/dL Phosphorus 8.7 H (2.5-4.5) mg/dL Microbiology - Last 24 Hours (Table) 02/16/19 19:00 Blood Culture - Preliminary Blood No Growth after 72 hours 02/18/19 11:45 Gram Stain - Preliminary Pleural Fluid Body Fluid Culture - Preliminary 02/17/19 12:54 Gram Stain - Final Sputum Sputum Culture - Final Strep pyogenes (grp a) Assessment and Plan Assessment: Acute respiratory failure status post intubation Septic shock secondary to influenza infection and pneumonia Left-sided pneumothorax, need chest tube stress induced hematemesis, evaluated by GI team Acute renal failure with oliguria Lactic acidosis Elevated troponin, evaluated by envelope folding machine adjuster Plan: This is a 63 years old female who presents because of septic shock, secondary to pneumonia and influenza infection, renal failure, elevated troponin. lactic acid Pulmonary/critical care unit, envelope folding machine adjuster and senior label specialist, nutrition manager, cardiothoracic surgeon R following the patient. Patient to continue on antibiotics. Continue with aspirin. Patient is on steroids and IV fluids.. Environmental Field Professional recommended beta janice and echocardiogram.Labs and medication were reviewed.. Continue same treatment. Continue with symptomatic treatment. Resume home medication. Monitor lytes and vitals. DVT and GI prophylaxis. F adiather recommendations of the clinical course of the patient DVT prophylaxis: Subcutaneous Lovenox. Hemoglobin stable and patient is high- risk for thrombosis. Keep monitoring GI Prophylaxis: Protonix Prognosis is guarded
[2019-02-20] MEDS: NICOTINE 21MG/24HR PATCH TRANSDERM SCH (09:56)
[2019-02-20] MEDS: PANTOPRAZOLE 40 MG/10 ML VIAL IVP SCH ×2 (09:57→21:26)
[2019-02-20] MEDS: CHLORHEXIDINE GLUCONATE 15 ML CUP MUCOUS MEM SCH ×2 (09:57→21:19)
[2019-02-20] MEDS: ASPIRIN 81 MG PO SCH (09:58)
[2019-02-20] MEDS: ENOXAPARIN 30 MG/0.3 ML SYRINGE SQ SCH ×2 (09:58→10:35)
[2019-02-20] MEDS: CISATRACURIUM 200 MG in SODIUM CHLORIDE 0.9% 180 ML IV SCH (09:59)
--- NOTE | 2019-02-20 10:37 | P.PN ---
Subjective Progress Note Date: 02/20/19 Principal diagnosis: Influenza A, acute respiratory failure with pneumonia, acute kidney injury secondary to acute tubular necrosis secondary to hypotension and sepsis, mild elevation in his troponins, spontaneous left pneumothorax, history of coronary artery disease with prior stenting, hypertension, hyperlipidemia, sputum culture positive for Streptococcus pyogenes and chronic tobacco abuse, current every day smoker. POD #2 left chest Thoravent placement 2 and left thoracostomy tube placement. The patient remains lying in bed in the intensive care unit. He is currently hemodynamically stable on levothyroid at 16 mcg/m. He remains intubated with mechanical ventilator support. Oxygen saturations are 95% on assist control 36, tidal volume 500, FiO2 50% and PEEP of 16. His T-max temperature in the last 24 hours was 102.5F. He is on antibiotics which is being managed by Dr. Shipley from infectious disease. Currently he remains sedated on Diprivan drip at 30 mcg/kg/m and is on a Nimbex drip at 1 mcg/kg/m. He has a Loo catheter in place with marginal urine output, 35 mL output in the last 24 hours. A right femoral dialysis catheter was placed yesterday by Dr. Marinelli and the patient underwent hemodialysis slide therapy yesterday managed by nephrology. Left thoracostomy tube and Thoravent tubes remain in place to his left chest. The left thoracostomy tube has a continuous air leak and remains on low continuous suction -20 cm H2O. Laboratory results this morning WBC 18.5, platelets 35, potassium 4.8, BUN 81, creatinine 7.13. Objective - Vital Signs Vital signs: Vital Signs Temp 98.6 F 02/20/19 08:00 Pulse 117 H 02/20/19 09:00 Resp 36 H 02/20/19 09:00 BP 99/67 02/20/19 03:00 Pulse Ox 95 02/20/19 09:00 Intake & Output 02/19/19 02/20/19 02/20/19 18:59 06:59 18:59 Intake Total 2529.458 1990.768 307.126 Output Total 125 25 15 Balance 2404.458 1965.768 292.126 Weight 110 kg 112 kg Intake: IV 1590 540 60 Calcium Gluconate 1 gm In 100 Sodium Chloride 0.9% 100 ml @ 100 mls/hr IVPB ONCE ONE Rx#:[id number] Dextrose 5% in Water 1, 1250 300 000 ml @ 50 mls/hr IV . Q23H NI with Sodium Bicarb (1 Meq/ml) 150 ml Rx#:[id number] Sodium Chloride 0.9% 1, 240 240 60 000 ml @ 20 mls/hr IV . Q24H NI Rx#:[id number] Intake, IV Titration 186.486 1796.768 247.126 Amount ACETAMINOPHEN IV (For NPO 100 ) 1,000 mg In Empty Bag 1 bag @ 400 mls/hr IVPB ONCE ONE Rx#:[id number] Cisatracurium 200 mg In 185.915 148.32 Sodium Chloride 0.9% 180 ml @ 1 MCG/KG/MIN 6.18 mls/hr IV .Q24H NI Rx#: [id number] Clindamycin 900 mg In 100 Dextrose 5% in Water 50 ml @ 50 mls/hr IVPB Q8HR NI Rx#:[id number] Dextrose 5% in Water 1, 800 200 000 ml @ 50 mls/hr IV . Q23H NI with Sodium Bicarb (1 Meq/ml) 150 ml Rx#:[id number] Norepinephrine 32 mg In 233.709 125.698 16.55 Sodium Chloride 0.9% 218 ml @ 0.05 MCG/KG/MIN 2. 233 mls/hr IV .Q24H NI Rx#:[id number] Propofol 1,000 mg In 169.834 257.750 30.576 Empty Bag 1 bag @ Titrate IV .Q0M NI Rx#: [id number] Tube Feeding 120 120 Other 30 Output: Chest Tube Drainage 115 Chest Tube Left 80 Thora-Vent Left Upper Mid 35 -Clavicular Chest Urine 10 25 15 Other: Voiding Method Indwelling Catheter Indwelling Catheter ABP, PAP, CO, CI - Last Documented Arterial Blood Pressure 102/64 - Constitutional Constitutional Comment(s): The patient remains intubated with mechanical ventilator support sedated on propofol drip and paralyzed with Nimbex drip. General appearance: Present: no acute distress, obese - Respiratory Details: Lung sounds diminished throughout with few scattered rhonchi. Respirations are symmetrical and nonlabored with mechanical ventilator support. Current ventilator settings are as follows: Assist control 36, TV 500, FiO2 50%, PEEP 16. Thoravent tubes remained to his left upper anterior chest to low continuous wall suction -20 cm H2O. The lateral Thoravent with continuous air leak. Left thoracostomy chest tube in place to low continuous wall suction -20 cm H2O. Continuous air leak present. Draining thin serosanguineous drainage. 150 mL output in the last 24 hours. - Cardiovascular Details: Regular rhythm and tachycardic rate. S1 and S2 present, negative for S3, gallop or murmur. Right femoral arterial line in place and functioning. Doppler pulses present in all 4 extremities. - Gastrointestinal Gastrointestinal Comment(s): Abdomen is soft and nondistended. No organomegaly. Hypoactive bowel sounds all 4 abdominal quadrants. OG tube in place to low intermittent wall suction. - Genitourinary Genitourinary Comment(s): Loo catheter for accurate I&O. Draining clear kevin urine. 35 mL output in the last 24 hours. Left femoral dialysis catheter in place and capped. - Integumentary Integumentary Comment(s): Skin is cool to touch, no clubbing is present. Mottled to his bilateral upper and lower extremities mainly to his hands and feet secondary to pressors and sepsis. - Neurologic Neurologic Comment(s): Remains paralyzed with Nimbex - Musculoskeletal Musculoskeletal Comment(s): Remains sedated on propofol drip and paralyzed on Nimbex drip. - Psychiatric Psychiatric Comment(s): Remains sedated on propofol drip and paralyzed on Nimbex drip. - Allied health notes Allied health notes reviewed: nursing - Labs CBC & Chem 7: 02/20/19 04:35 02/20/19 04:35 Labs: Abnormal Lab Results - Last 24 Hours (Table) 02/19/19 02/19/19 02/19/19 Range/Units 13:13 17:47 17:51 WBC (3.8-10.6) k/uL RBC (4.30-5.90) m/uL Plt Count (150-450) k/uL ABG pH 7.24 L (7.35-7.45) ABG pCO2 58 H (35-45) mmHg ABG HCO3 (21-25) mmol/L ABG Total CO2 27 H (19-24) mmol/L Sodium 135 L (137-145) mmol/L Chloride (98-107) mmol/L BUN 70 H (9-20) mg/dL Creatinine 6.56 H (0.66-1.25) mg/dL Glucose 187 H (74-99) mg/dL POC Glucose (mg/dL) 181 H (75-99) mg/dL Calcium 5.7 L* (8.4-10.2) mg/dL Ionized Calcium Ann 3.3 L* (4.5-5.3) mg/dL Phosphorus 7.3 H (2.5-4.5) mg/dL 02/19/19 02/20/19 02/20/19 Range/Units 23:32 04:30 04:35 WBC (3.8-10.6) k/uL RBC (4.30-5.90) m/uL Plt Count (150-450) k/uL ABG pH 7.29 L (7.35-7.45) ABG pCO2 54 H (35-45) mmHg ABG HCO3 26 H (21-25) mmol/L ABG Total CO2 27 H (19-24) mmol/L Sodium 135 L (137-145) mmol/L Chloride 97 L (98-107) mmol/L BUN 81 H (9-20) mg/dL Creatinine 7.13 H* (0.66-1.25) mg/dL Glucose 242 H (74-99) mg/dL POC Glucose (mg/dL) 128 H (75-99) mg/dL Calcium 5.5 L* (8.4-10.2) mg/dL Ionized Calcium Ann 3.1 L* (4.5-5.3) mg/dL Phosphorus 8.7 H (2.5-4.5) mg/dL 02/20/19 02/20/19 Range/Units 04:35 05:44 WBC 18.5 H (3.8-10.6) k/uL RBC 3.99 L (4.30-5.90) m/uL Plt Count 35 L (150-450) k/uL ABG pH (7.35-7.45) ABG pCO2 (35-45) mmHg ABG HCO3 (21-25) mmol/L ABG Total CO2 (19-24) mmol/L Sodium (137-145) mmol/L Chloride (98-107) mmol/L BUN (9-20) mg/dL Creatinine (0.66-1.25) mg/dL Glucose (74-99) mg/dL POC Glucose (mg/dL) 237 H (75-99) mg/dL Calcium (8.4-10.2) mg/dL Ionized Calcium Ann (4.5-5.3) mg/dL Phosphorus (2.5-4.5) mg/dL Microbiology - Last 24 Hours (Table) 02/18/19 11:45 Gram Stain - Preliminary Pleural Fluid Body Fluid Culture - Preliminary 02/16/19 19:00 Blood Culture - Preliminary Blood No Growth after 72 hours 02/17/19 12:54 Gram Stain - Final Sputum Sputum Culture - Final Strep pyogenes (grp a) - Imaging and Cardiology Chest x-ray: report reviewed, image reviewed Assessment and Plan Assessment: 1. Acute respiratory failure with pneumonia and influenza A infection. 2. Acute sepsis with lactic acidosis. Sputum culture positive for Streptococcus pyogenes. 3. Acute kidney injury secondary to acute tubular necrosis secondary to hypotension and sepsis. 4. Metabolic acidosis secondary to acute kidney injury and lactic acidosis. 5. Spontaneous left pneumothorax. 6. History of coronary artery disease with prior stenting. 7. History of hypertension. 8. History of hyperlipidemia 9. Mild elevation of troponin. 10. Chronic tobacco abuse, currently day smoker. Plan: 1. Continue left pleural chest tube to low continuous wall suction -20 cm H2O. We will discontinue his left upper lateral Thoravent chest tube today. 2. Critical care management recommendations per Dr. Stapleton. 3. Pulmonary and mechanical ventilator recommendations per pulmonology. 4. Antibiotic management per Dr. Shipley recommendations. Sputum culture showing positive for strep pyogenes. 5. Continue GI and DVT prophylaxis. Currently on Protonix, bilateral lower extremity SCDs. 6. Avoid nephrotoxic agents, nephrology is following. 7. Discontinue Lovenox as his platelet count today is 35. Send HIT panel. 8. More recommendations to follow based on patient's clinical course. Time with Patient: Greater than 30
--- NOTE | 2019-02-20 11:35 | P.PN ---
Subjective Progress Note Date: 02/20/19 Principal diagnosis: Coffee-ground output from nasogastric tube The patient was seen lying in bed, intubated and sedated. No signs or symptoms of GI bleeding reported from nursing staff. Objective - Vital Signs Vital signs: Vital Signs Temp 98.6 F 02/20/19 08:00 Pulse 118 H 02/20/19 11:26 Resp 36 H 02/20/19 11:00 BP 99/67 02/20/19 03:00 Pulse Ox 96 02/20/19 11:00 Intake & Output 02/19/19 02/20/19 02/20/19 18:59 06:59 18:59 Intake Total 2529.458 1991.768 511.528 Output Total 125 25 15 Balance 2404.458 1966.768 496.528 Weight 110 kg 112 kg Intake: IV 1590 540 100 Calcium Gluconate 1 gm In 100 Sodium Chloride 0.9% 100 ml @ 100 mls/hr IVPB ONCE ONE Rx#:[id number] Dextrose 5% in Water 1, 1250 300 000 ml @ 50 mls/hr IV . Q23H NI with Sodium Bicarb (1 Meq/ml) 150 ml Rx#:[id number] Sodium Chloride 0.9% 1, 240 240 100 000 ml @ 20 mls/hr IV . Q24H NI Rx#:[id number] Intake, IV Titration 326.104 7040.768 381.528 Amount ACETAMINOPHEN IV (For NPO 100 ) 1,000 mg In Empty Bag 1 bag @ 400 mls/hr IVPB ONCE ONE Rx#:[id number] Cisatracurium 200 mg In 185.915 148.32 34.402 Sodium Chloride 0.9% 180 ml @ 1 MCG/KG/MIN 6.18 mls/hr IV .Q24H NI Rx#: [id number] Clindamycin 900 mg In 100 Dextrose 5% in Water 50 ml @ 50 mls/hr IVPB Q8HR NI Rx#:[id number] Dextrose 5% in Water 1, 800 300 000 ml @ 50 mls/hr IV . Q23H NI with Sodium Bicarb (1 Meq/ml) 150 ml Rx#:[id number] Norepinephrine 32 mg In 233.709 125.698 16.55 Sodium Chloride 0.9% 218 ml @ 0.05 MCG/KG/MIN 2. 233 mls/hr IV .Q24H NI Rx#:[id number] Propofol 1,000 mg In 169.834 257.750 30.576 Empty Bag 1 bag @ Titrate IV .Q0M NI Rx#: [id number] Tube Feeding 120 120 30 Other 30 Output: Chest Tube Drainage 115 Chest Tube Left 80 Thora-Vent Left Upper Mid 35 -Clavicular Chest Urine 10 25 15 Other: Voiding Method Indwelling Catheter Indwelling Catheter ABP, PAP, CO, CI - Last Documented Arterial Blood Pressure 104/64 - Exam On physical examination, patient appears comfortable in no apparent distress. HEAD: Normocephalic, atraumatic. EYES: No scleral icterus. No conjunctival injection. MOUTH: No lesions, tongue midline. NECK: Trachea midline, no gross abnormalities, ET tube in place. CHEST: Coarse respiratory noises in all lung garsia consistent with ventilation. ABDOMEN: Soft, obese. Bowel sounds are positive. No organomegaly. No guarding or rigidity. EXTREMITIES: No pedal edema. SKIN: No rashes, no jaundice. NEUROLOGIC: Intubated and sedated. - Labs CBC & Chem 7: 02/20/19 04:35 02/20/19 04:35 Labs: Abnormal Lab Results - Last 24 Hours (Table) 02/19/19 02/19/19 02/19/19 Range/Units 13:13 17:47 17:51 WBC (3.8-10.6) k/uL RBC (4.30-5.90) m/uL Plt Count (150-450) k/uL ABG pH 7.24 L (7.35-7.45) ABG pCO2 58 H (35-45) mmHg ABG HCO3 (21-25) mmol/L ABG Total CO2 27 H (19-24) mmol/L Sodium 135 L (137-145) mmol/L Chloride (98-107) mmol/L BUN 70 H (9-20) mg/dL Creatinine 6.56 H (0.66-1.25) mg/dL Glucose 187 H (74-99) mg/dL POC Glucose (mg/dL) 181 H (75-99) mg/dL Calcium 5.7 L* (8.4-10.2) mg/dL Ionized Calcium Ann 3.3 L* (4.5-5.3) mg/dL Phosphorus 7.3 H (2.5-4.5) mg/dL 02/19/19 02/20/19 02/20/19 Range/Units 23:32 04:30 04:35 WBC (3.8-10.6) k/uL RBC (4.30-5.90) m/uL Plt Count (150-450) k/uL ABG pH 7.29 L (7.35-7.45) ABG pCO2 54 H (35-45) mmHg ABG HCO3 26 H (21-25) mmol/L ABG Total CO2 27 H (19-24) mmol/L Sodium 135 L (137-145) mmol/L Chloride 97 L (98-107) mmol/L BUN 81 H (9-20) mg/dL Creatinine 7.13 H* (0.66-1.25) mg/dL Glucose 242 H (74-99) mg/dL POC Glucose (mg/dL) 128 H (75-99) mg/dL Calcium 5.5 L* (8.4-10.2) mg/dL Ionized Calcium Ann 3.1 L* (4.5-5.3) mg/dL Phosphorus 8.7 H (2.5-4.5) mg/dL 02/20/19 02/20/19 Range/Units 04:35 05:44 WBC 18.5 H (3.8-10.6) k/uL RBC 3.99 L (4.30-5.90) m/uL Plt Count 35 L (150-450) k/uL ABG pH (7.35-7.45) ABG pCO2 (35-45) mmHg ABG HCO3 (21-25) mmol/L ABG Total CO2 (19-24) mmol/L Sodium (137-145) mmol/L Chloride (98-107) mmol/L BUN (9-20) mg/dL Creatinine (0.66-1.25) mg/dL Glucose (74-99) mg/dL POC Glucose (mg/dL) 237 H (75-99) mg/dL Calcium (8.4-10.2) mg/dL Ionized Calcium Ann (4.5-5.3) mg/dL Phosphorus (2.5-4.5) mg/dL Microbiology - Last 24 Hours (Table) 02/18/19 11:45 Gram Stain - Preliminary Pleural Fluid Body Fluid Culture - Preliminary 02/16/19 19:00 Blood Culture - Preliminary Blood No Growth after 72 hours 02/17/19 12:54 Gram Stain - Final Sputum Sputum Culture - Final Strep pyogenes (grp a) Assessment and Plan (1) Coffee ground emesis Narrative/Plan: Patient recently diagnosed with influenza A who is currently being managed in the ICU due to septic shock with multiorgan involvement, presently intubated on a vent. The patient had a nasogastric tube placed with coffee-ground emesis reported. This is likely from stress-induced gastritis, trauma from NG tube placement or other etiology. Hemoglobin has remained stable currently 13.6 from 15 previously. Current Visit: Yes Status: Acute Code(s): K92.0 - HEMATEMESIS SNOMED Code(s): 33803079 Plan: Continue ICU management Continue broad-spectrum antibiotics Continue Protonix 40 mg twice daily No plan for endoscopic evaluation at this time given stable hemoglobin and absence of any signs or symptoms of GI bleeding Thank you for allowing us to participate in the care of the patient, the gastroenterology service will stand by, please call us back with any questions or concerns
--- NOTE | 2019-02-20 11:51 | CONS ---
DATE OF CONSULTATION: 02/20/2019 PREOPERATIVE DIAGNOSIS: Acute chronic renal failure. PROCEDURE: Ultrasound-guided dialysis catheter placed left femoral approach. This patient was seen in the intensive care unit. Patient has been intubated. This patient is a 63-year-old with multiple medical problems, including acute chronic renal failure, septic shock secondary to pneumonia and influenza infection. History of elevated troponin. I was consulted for placement of the dialysis catheter. PAST MEDICAL HISTORY: History of heart failure. PERSONAL HISTORY: History of smoking. PHYSICAL EXAMINATION: On examination, patient was seen in her room. The patient has been intubated. Lungs are crackles bilateral. Abdomen is protuberant, is nontender. On right side, patient has a right femoral artery catheter and left femoral is 2+. The patient has acute on chronic renal failure. PLAN: Placement of the dialysis catheter. Risks and complications of bleeding, infection, thrombosis has been discussed. MMODL / IJN: [id number] / [id number]
[2019-02-20 12:17] LABS: Hepatitis B Surface AB- Quant 3.5 mIU/mL
[2019-02-20 14:06] LABS: Glucose,Whole Blood 234 mg/dL (75-99)
--- NOTE | 2019-02-20 14:21 | PN ---
PROGRESS NOTE Patient is seen for followup for acute kidney injury. The patient remains oliguric. He had dialysis treatment yesterday with no significant ultrafiltration. Serum creatinine remains elevated at 7.1. Patient is scheduled for hemodialysis again today. Currently, patient is on the vent. Blood pressure this morning was 102/64, heart rate of about 100 per minute. Patient is maintained on Levophed, the dose is decreasing. He is on close to 2 mcg of Levophed. PHYSICAL EXAMINATION: On examination, heart sounds are heard. Examination of the lungs shows bilateral breath sounds are heard. Abdomen is soft, distended. Examination lower extremity shows edema 1+ bilaterally. 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 LABS: Labs shows sodium 135, potassium 4.8, BUN 81, serum creatinine 7.13. Calcium is 5.5, ionized calcium was 3.1. Random vancomycin level was 19.3. Hemoglobin was 13.6 g/dL. ASSESSMENT: 1. Acute kidney injury, acute tubular necrosis, currently oliguric, started on dialysis. Patient will have a second treatment today. Remains oliguric, we will plan for dialysis again tomorrow. 2. Septic shock. 3. Anion gap metabolic acidosis and an element of respiratory acidosis, currently on the vent. 4. Mild hyperkalemia, resolved. 5. Pneumothorax, status post chest tube. 6. Hypocalcemia. We will replace and check a 25 hydroxy vitamin D level. 7. Influenza and influenza pneumonia with sepsis. 8. Lactic acidosis, currently improved. Patient was on bicarb drip. It is down to 50 mL an hours now. PLAN: Check 25 hydroxy vitamin D level. Replace calcium and DC bicarb drip. Avoid vancomycin and we will plan for dialysis again tomorrow. MMODL / IJN: [id number] /
[2019-02-20] MEDS: SODIUM CHLORIDE 0.9% 1,000 ML IV SCH (15:42)
--- NOTE | 2019-02-20 16:29 | XR ---
EXAMINATION TYPE: XR chest 1V portable DATE OF EXAM: 02/20/2019 COMPARISON: Prior chest x-ray same dated earlier time HISTORY: Chest tube placement TECHNIQUE: Single frontal view of the chest is obtained. FINDINGS: There is been interval removal of the thoracic vent which was outside of the chest, second thoracic vent remains overlying the upper left chest but may be outside of the pleural space. Left-s ided chest tube has been placed in the interval, distal tip is extending towards the region of the le ft hilum. There is large pneumothorax present, left lung is atelectatic. Right lung is stable. There are interstitial changes. Right jugular central venous catheter shows the distal tip in the region of the cavoatrial junction. Endotracheal tube is overlying the tracheal air column, orogastric tube cou rses into the stomach. There is subcutaneous emphysema present. Heart size is stable. IMPRESSION: Chest tube appears repositioned in the interval, pneumothorax is increased in size. Aguilar tional findings above. Report relayed to patient's nurse at the time of interpretation of the exam.
--- NOTE | 2019-02-20 16:30 | XR ---
EXAMINATION TYPE: XR chest 1V portable DATE OF EXAM: 02/20/2019 COMPARISON: Prior chest x-ray same dated earlier time HISTORY: Status post chest tube placement TECHNIQUE: Single frontal view of the chest is obtained. FINDINGS: Interval placement of a second chest tube on the left, reexpansion of the left lung. Minim al residual pneumothorax suspected. There is extensive subcutaneous emphysema. IMPRESSION: Interval chest tube placement an improvement in pneumothorax.
[2019-02-20 17:24] LABS: ABG Base Excess 0.9 mmol/L; ABG HCO3 28 mmol/L (21-25); ABG Oxygen Saturation 86.6 % (94-97); ABG PCO2 66 mmHg (35-45); ABG PH 7.24 (7.35-7.45); ABG PO2 63 mmHg (83-108); ABG TCO2 30 mmol/L (19-24)
--- NOTE | 2019-02-20 18:30 | XR ---
EXAMINATION TYPE: XR chest 1V portable DATE OF EXAM: 02/20/2019 CLINICAL HISTORY: Difficulty breathing progress study. TECHNIQUE: Single AP portable semiupright view of the chest is obtained. COMPARISON: Chest x-ray from earlier today an older studies FINDINGS: There are 2 persistent left-sided chest tubes and left apical pleural drainage catheter ar e redemonstrated. There is persistent elevated left hemidiaphragm with left basilar opacity. No signi ficant pneumothorax is seen. Reticular interstitial changes right lung with medial basilar opacity is identified. An endotracheal tube and orogastric tube are stable in appearance. There is stable right internal jugular central venous catheter. Overlying EKG leads are redemonstrated. Overlying left-ruma ed subcutaneous emphysema is again seen. Cardiac silhouette size is stable within normal limits. IMPRESSION: Overall stable findings from most recent study, no recurrent left-sided pneumothorax. R eticular interstitial changes bilaterally could reflect edema and/or fibrosis. More focal left basila r acute infiltrate and/or atelectasis again seen.
[2019-02-20 18:37] LABS: Glucose,Whole Blood 202 mg/dL (75-99)
[2019-02-20] MEDS ORDERED: INSULIN DETEMIR (LEVEMIR) 100 UNIT/ML SYR SQ SCH (21:00)
[2019-02-20] MEDS: CALCIUM CARBONATE 500 MG CHEWABLE PO SCH (21:18)
[2019-02-20] MEDS: OSELTAMIVIR 60 MG/10 ML ORAL SYRINGE PO SCH (21:32)
--- NOTE | 2019-02-20 21:49 | P.PN ---
Subjective Progress Note Date: 02/20/19 63-year-old male who has a history of tobacco use, coronary artery disease and congestive heart failure with the family relates is medically disabled because of his cardiac disease. He was ill earlier this week when he went to the walk-in clinic on Wednesday at that point in time was found to have evidence of fever and chest congestion. Influenza testing was positive for influenza a the patient was started on Tamiflu. The patient however then developed progressive decline of his status and on the presented to the emergency center. At that point in time he was profoundly ill with hypoxia, acidosis, and renal failure. He simply was admitted for intensive care unit he was intubated and has been sedated and mechanically ventilated. He is without significant hypotension is required multiple vasopressor agents that include Levophed and vasopressin, and has been treated with stress doses of steroids. The patient had worsening of his status and with his worsening pneumonia and refractory sepsis the infectious diseases consultation was requested. The patient's family is present. Relates that he has been with a declining medical status for some time but became acutely ill recently. None of the other family members are ill at this time. As noted the patient is intubated, sedated and mechanically ventilated and paralyzed further information from the family. The patient's status did worsen with a spontaneous pneumothorax which resulted in placement of two thoaravent devices which did not resolve the pneumothorax and constantly a chest tube was applied which has resolved most of the pneumothorax. As noted despite this remains hemodynamically unstable. 02/19/2019 the patient has had fever overnight. 102.1 recently. Intravenously acetaminophen has been given. With the change in the patient's PEEP to 16 there has now been a marked improvement of his oxygenation. He is on lower doses of vasopressor but remains with his acute renal failure and he is anicteric. As noted his sputum is evidence of Streptococcus pyogenes superimposed on influenza A. The case has been discussed with pulmonary critical care as well as nephrology. 02/20/2019 patient had difficulties with his chest tube and a new chest tube was then placed with marked improvement of his respiratory status. There has been a reduction in the amount of vasopressor therapy. Status post chest tube placement oxygenation is considerably improved. Fever has improved. No new positive cultures. Thrombocytopenia has worsened. Renal replacement therapy has been started Objective - Vital Signs Vital signs: Vital Signs Temp 99.3 F 02/20/19 16:00 Pulse 108 H 02/20/19 20:28 Resp 40 H 02/20/19 19:00 BP 99/67 02/20/19 03:00 Pulse Ox 92 L 02/20/19 16:00 Intake & Output 02/20/19 02/20/19 02/21/19 06:59 18:59 06:59 Intake Total 7614.468 3807.528 70 Output Total 25 565 0 Balance 1965.768 896.528 70 Weight 112 kg Intake: IV 540 240 20 Dextrose 5% in Water 1, 300 000 ml @ 50 mls/hr IV . Q23H NI with Sodium Bicarb (1 Meq/ml) 150 ml Rx#:[id number] Sodium Chloride 0.9% 1, 240 240 20 000 ml @ 20 mls/hr IV . Q24H NI Rx#:[id number] Intake, IV Titration 9130.038 9415.528 50 Amount Cisatracurium 200 mg In 148.32 34.402 Sodium Chloride 0.9% 180 ml @ 1 MCG/KG/MIN 6.18 mls/hr IV .Q24H NI Rx#: [id number] Dextrose 5% in Water 1, 800 650 50 000 ml @ 50 mls/hr IV . Q23H NI with Sodium Bicarb (1 Meq/ml) 150 ml Rx#:[id number] Norepinephrine 32 mg In 125.698 266.550 Sodium Chloride 0.9% 218 ml @ 0.05 MCG/KG/MIN 2. 233 mls/hr IV .Q24H NI Rx#:[id number] Propofol 1,000 mg In 257.750 130.576 Empty Bag 1 bag @ Titrate IV .Q0M NI Rx#: [id number] cefTRIAXone 2 gm In 50 Sodium Chloride 0.9% 50 ml @ 100 mls/hr IVPB Q24H NI Rx#:[id number] Tube Feeding 120 90 Output: Chest Tube Drainage 50 Chest Tube Left 50 Urine 25 15 0 Other 500 Other: Voiding Method Indwelling Catheter Indwelling Catheter ABP, PAP, CO, CI - Last Documented Arterial Blood Pressure 105/62 - Exam 63-year-old male HEENT: Anicteric conjunctiva are pale but moist nasal mucosa grossly intact without significant lesions, there is no thrush noted around the endotracheal tube. No evidence of bleeding Neck: The neck is supple without significant lymphadenopathy or thyromegaly. Lungs: There is symmetrical air entry however very coarse bronchial sounds are heard in all lung garsia and still amphoric sounds in the anterior aspect of the left chest where the Heart: Tachycardic no murmur is noted there is palpable subcutaneous emphysema along the anterior aspect of the shoulder and upper aspect of the chest above the clavicle Abdomen: Abdomen has few bowel sounds, it is soft minimally distended and can palpate no mass or organomegaly Extremities: The extremities have some generalized edema, hands and feet are cool to touch mild bluish discoloration is noted,but no necrosis or ulcerations are seen Neuro: Sedated paralyzed mechanically ventilated - Labs CBC & Chem 7: 02/20/19 04:35 02/20/19 04:35 Labs: Abnormal Lab Results - Last 24 Hours (Table) 02/19/19 02/20/19 02/20/19 Range/Units 23:32 04:20 04:30 WBC (3.8-10.6) k/uL RBC (4.30-5.90) m/uL Plt Count (150-450) k/uL ABG pH 7.29 L (7.35-7.45) ABG pCO2 54 H (35-45) mmHg ABG pO2 (83-108) mmHg ABG HCO3 26 H (21-25) mmol/L ABG Total CO2 27 H (19-24) mmol/L ABG O2 Saturation (94-97) % Sodium (137-145) mmol/L Chloride (98-107) mmol/L BUN (9-20) mg/dL Creatinine (0.66-1.25) mg/dL Glucose (74-99) mg/dL POC Glucose (mg/dL) 128 H (75-99) mg/dL Calcium (8.4-10.2) mg/dL Ionized Calcium Ann (4.5-5.3) mg/dL Phosphorus (2.5-4.5) mg/dL Vitamin D 25-Hydroxy 10.9 L (30.0-100.0) ng/mL 02/20/19 02/20/19 02/20/19 Range/Units 04:35 04:35 05:44 WBC 18.5 H (3.8-10.6) k/uL RBC 3.99 L (4.30-5.90) m/uL Plt Count 35 L (150-450) k/uL ABG pH (7.35-7.45) ABG pCO2 (35-45) mmHg ABG pO2 (83-108) mmHg ABG HCO3 (21-25) mmol/L ABG Total CO2 (19-24) mmol/L ABG O2 Saturation (94-97) % Sodium 135 L (137-145) mmol/L Chloride 97 L (98-107) mmol/L BUN 81 H (9-20) mg/dL Creatinine 7.13 H* (0.66-1.25) mg/dL Glucose 242 H (74-99) mg/dL POC Glucose (mg/dL) 237 H (75-99) mg/dL Calcium 5.5 L* (8.4-10.2) mg/dL Ionized Calcium Ann 3.1 L* (4.5-5.3) mg/dL Phosphorus 8.7 H (2.5-4.5) mg/dL Vitamin D 25-Hydroxy (30.0-100.0) ng/mL 02/20/19 02/20/19 02/20/19 Range/Units 13:53 17:19 18:26 WBC (3.8-10.6) k/uL RBC (4.30-5.90) m/uL Plt Count (150-450) k/uL ABG pH 7.24 L (7.35-7.45) ABG pCO2 66 H (35-45) mmHg ABG pO2 63 L (83-108) mmHg ABG HCO3 28 H (21-25) mmol/L ABG Total CO2 30 H (19-24) mmol/L ABG O2 Saturation 86.6 L (94-97) % Sodium (137-145) mmol/L Chloride (98-107) mmol/L BUN (9-20) mg/dL Creatinine (0.66-1.25) mg/dL Glucose (74-99) mg/dL POC Glucose (mg/dL) 234 H 202 H (75-99) mg/dL Calcium (8.4-10.2) mg/dL Ionized Calcium Ann (4.5-5.3) mg/dL Phosphorus (2.5-4.5) mg/dL Vitamin D 25-Hydroxy (30.0-100.0) ng/mL Microbiology - Last 24 Hours (Table) 02/16/19 19:00 Blood Culture - Preliminary Blood No Growth after 96 hours 02/18/19 11:45 Gram Stain - Preliminary Pleural Fluid Body Fluid Culture - Preliminary Laboratory Results WBC 18.5 k/uL (3.8-10.6) H 02/20/19 04:35 RBC 3.99 m/uL (4.30-5.90) L 02/20/19 04:35 Hgb 13.6 gm/dL (13.0-17.5) 02/20/19 04:35 Hct 39.1 % (39.0-53.0) 02/20/19 04:35 MCV 97.9 fL (80.0-100.0) 02/20/19 04:35 MCH 34.0 pg (25.0-35.0) 02/20/19 04:35 MCHC 34.8 g/dL (31.0-37.0) 02/20/19 04:35 RDW 14.5 % (11.5-15.5) 02/20/19 04:35 Plt Count 35 k/uL (150-450) L 02/20/19 04:35 Neutrophils % (Manual) 83 % 02/19/19 05:40 Band Neutrophils % 5 % 02/19/19 05:40 Lymphocytes % (Manual) 9 % 02/19/19 05:40 Monocytes % (Manual) 2 % 02/19/19 05:40 Metamyelocytes % 1 % 02/19/19 05:40 Myelocytes % 4 % 02/16/19 19:00 Neutrophils # (Manual) 12.60 k/uL (1.3-7.7) H 02/19/19 05:40 Lymphocytes # (Manual) 1.30 k/uL (1.0-4.8) 02/19/19 05:40 Monocytes # (Manual) 0.29 k/uL (0-1.0) 02/19/19 05:40 Metamyelocytes # (Man) 0.14 k/uL (0) H 02/19/19 05:40 Myelocytes # (Manual) 0.53 k/uL (0) H 02/16/19 19:00 Nucleated RBCs 0 /100 WBC (0-0) 02/19/19 05:40 Manual Slide Review Performed 02/19/19 05:40 Toxic Granulation Present 02/17/19 04:20 Toxic Vacuolation Present 02/18/19 04:15 Large Platelets Present 02/16/19 19:00 Macrocytosis Slight 02/16/19 19:00 PT 10.9 sec (9.0-12.0) 02/16/19 19:00 INR 1.0 (<1.2) 02/16/19 19:00 APTT 30.0 sec (22.0-30.0) 02/16/19 19:00 Sample Site [place] 02/20/19 17:19 ABG pH 7.24 (7.35-7.45) L 02/20/19 17:19 ABG pCO2 66 mmHg (35-45) H 02/20/19 17:19 ABG pO2 63 mmHg (83-108) L 02/20/19 17:19 ABG HCO3 28 mmol/L (21-25) H 02/20/19 17:19 ABG Total CO2 30 mmol/L (19-24) H 02/20/19 17:19 ABG O2 Saturation 86.6 % (94-97) L 02/20/19 17:19 ABG Base Excess 0.9 mmol/L 02/20/19 17:19 [place] Test n/a 02/20/19 17:19 FiO2 50 % 02/20/19 17:19 Sodium 135 mmol/L (137-145) L 02/20/19 04:35 Potassium 4.8 mmol/L (3.5-5.1) 02/20/19 04:35 Chloride 97 mmol/L (98-107) L 02/20/19 04:35 Carbon Dioxide 23 mmol/L (22-30) 02/20/19 04:35 Anion Gap 15 mmol/L 02/20/19 04:35 BUN 81 mg/dL (9-20) H 02/20/19 04:35 Creatinine 7.13 mg/dL (0.66-1.25) H* 02/20/19 04:35 Est GFR (CKD-EPI)AfAm 9 (>60 ml/min/1.73 sqM) 02/20/19 04:35 Est GFR (CKD-EPI)NonAf 8 (>60 ml/min/1.73 sqM) 02/20/19 04:35 Glucose 242 mg/dL (74-99) H 02/20/19 04:35 POC Glucose (mg/dL) 202 mg/dL (75-99) H 02/20/19 18:26 POC Glu Loan Review Manager ID Yann Alves 02/20/19 18:26 Lactic Ac Sepsis Rflx Y 02/17/19 22:57 Plasma Lactic Acid Tra 7.6 mmol/L (0.7-2.0) H* 02/18/19 04:15 Calcium 5.5 mg/dL (8.4-10.2) L* 02/20/19 04:35 Ionized Calcium Ann 3.1 mg/dL (4.5-5.3) L* 02/20/19 04:35 Phosphorus 8.7 mg/dL (2.5-4.5) H 02/20/19 04:35 Magnesium 2.1 mg/dL (1.6-2.3) 02/20/19 04:35 Total Bilirubin 3.5 mg/dL (0.2-1.3) H 02/16/19 19:00 AST 51 U/L (17-59) 02/16/19 19:00 ALT 29 U/L (21-72) 02/16/19 19:00 Alkaline Phosphatase 103 U/L (38-126) 02/16/19 19:00 Troponin I 4.250 ng/mL (0.000-0.034) H* 02/18/19 04:15 NT-Pro-B Natriuret Pep 4770 pg/mL 02/16/19 19:00 Total Protein 7.0 g/dL (6.3-8.2) 02/16/19 19:00 Albumin 3.8 g/dL (3.5-5.0) 02/16/19 19:00 Vitamin D 25-Hydroxy 10.9 ng/mL (30.0-100.0) L 02/20/19 04:20 Urine Color Dark Brown 02/19/19 06:10 Urine Appearance Cloudy (Clear) 02/19/19 06:10 Urine pH 5.0 (5.0-8.0) 02/19/19 06:10 Ur Specific [place] 1.019 (1.001-1.035) 02/19/19 06:10 Urine Protein 1+ (Negative) H 02/19/19 06:10 Urine Glucose (UA) 1+ (Negative) H 02/19/19 06:10 Urine Ketones 1+ (Negative) H 02/19/19 06:10 Urine Blood Moderate (Negative) H 02/19/19 06:10 Urine Nitrite Negative (Negative) 02/19/19 06:10 Urine Bilirubin Negative (Negative) 02/19/19 06:10 Urine Urobilinogen <2.0 mg/dL (<2.0) 02/19/19 06:10 Ur Leukocyte Esterase Trace (Negative) H 02/19/19 06:10 Urine RBC 1 /hpf (0-5) 02/19/19 06:10 Urine WBC 1 /hpf (0-5) 02/19/19 06:10 Random Vancomycin 19.3 ug/mL 02/20/19 04:35 Hep Bs Antigen Non-Reactive (Non-Reactive) 02/19/19 05:40 Hep Bs Antibody Non-Reactive (Non-Reactive) 02/19/19 05:40 Hep Bs Antibody, Quant 3.5 mIU/mL 02/19/19 05:40 Hep B Core Total Ab Non-Reactive (Non-Reactive) 02/19/19 05:40 Microbiology 02/16/19 19:00 Blood Blood Culture - Preliminary No Growth after 96 hours 02/18/19 11:45 Pleural Fluid Gram Stain - Preliminary 02/18/19 11:45 Pleural Fluid Body Fluid Culture - Preliminary 02/17/19 12:54 Sputum Gram Stain - Final 02/17/19 12:54 Sputum Sputum Culture - Final Strep pyogenes (grp a) 02/17/19 10:00 Urine,Catheterized Urine Culture - Final - Imaging and Cardiology Chest x-ray: image reviewed (First x-ray reveals evidence of the extensive pneumothorax left chest, follow-up shows evidence of the improved aeration.) Assessment and Plan (1) Influenza A Current Visit: Yes Status: Acute Code(s): J10.1 - FLU DUE TO OTH IDENT INFLUENZA VIRUS W OTH RESP MANIFEST SNOMED Code(s): 009964765 (2) Pneumonia and influenza Narrative/Plan: 63-year-old male who is a history of underlying cardiovascular disease and has been medically disabled presents to Hospital with a relatively short history of influenza A. The patient has the rapid onset of progressive shortness of breath and has now developed respiratory failure, acute lung injury with acute renal failure. Pulmonary critical care is having difficulties of adequate oxygenation and the patient has poor urinary output. His and seen by nephrology and they're contemplating Sled therapy if his hypotension can be further managed. Influenza A is associated with aggressive pneumonia staph aureus and Streptococcus pyogenes given associated with severe necrotizing pneumonia directly links to the influenza infection. We'll continue the active treatment of the influenza with the Tamiflu. Antibiotic therapy with vancomycin and Levaquin has been utilized pending further data. Of note if the patient has been seen the laboratory relates that showed enterococcus biopsies has been isolated in the respiratory secretions. Concern this is a super antigen type strain and constantly antibiotic therapy is altered to ceftriaxone ( with penicillin ALLERGY) and clindamycin was added to attempt to reduce toxin production. Overall prognosis is very poor. 02/19/2019 the patient has now had some measurable improvement. When the PEEP was increased to 16 the patient started fractionate much better and is now had further improvement of several of his parameters including improved hypotension. However has acute renal failure and the case has been discussed with medical care and nephrology. IV access for dialysis is to be placed and hopefully will be over start dialysis soon. As patient is more hemodynamically stable. The antimicrobial therapy with Rocephin and clindamycin are being utilizes point in time. Patient likely has a super antigen strain of strep resulting in the current profound level of illness. 02/20/2019 patient remains profoundly ill with multisystem organ failure however with the new chest tube there is been some improvement of his respiratory status. He is receiving renal replacement therapy and remains on vasopressor therapy. The pneumonia from influenza and super infection with Streptococcus pyogenses is occurring and is on antiviral and antibiotic therapy. For now supportive care is continuing prognosis remains very poor. Current Visit: Yes Status: Acute Code(s): J11.00 - FLU DUE TO UNIDENTIFIED FLU VIRUS W UNSP TYPE OF PNEUMONIA SNOMED Code(s): 971655936 (3) Acute renal failure Current Visit: Yes Status: Acute Code(s): N17.9 - ACUTE KIDNEY FAILURE, UNSPECIFIED SNOMED Code(s): 37890944
[2019-02-20 23:17] LABS: Glucose,Whole Blood 216 mg/dL (75-99)
[2019-02-21 00:10] LABS: Glucose,Whole Blood 249 mg/dL (75-99)
[2019-02-21] MEDS: ARTIFICIAL TEARS-HYPROMELLOSE DROPS 15 ML BTL BOTH EYES SCH ×7 (00:27→23:56)
[2019-02-21] MEDS: HYDROmorphone 0.5 MG/0.5 ML SYRINGE IVP SCH ×6 (00:32→16:23)
[2019-02-21] MEDS: INSULIN ASPART (NovoLOG) 100 UNIT/ML VIAL SQ SCH ×5 (00:35→23:55)
[2019-02-21] MEDS: CLINDAMYCIN 900 MG in DEXTROSE 5% IN WATER 50 ML IVPB SCH ×8 (00:38→23:56)
[2019-02-21] MEDS: PROPOFOL 1,000 MG in EMPTY BAG 1 BAG IV SCH ×6 (02:00→23:57)
[2019-02-21] MEDS: IPRATROPIUM-ALBUTEROL 3 ML NEB INHALATION SCH ×6 (03:19→23:29)
[2019-02-21] MEDS: HYDROCORTISONE SUCCINATE 100 MG/2 ML VIAL IV SCH ×3 (03:45→21:07)
[2019-02-21 05:08] LABS: ABG Base Excess 3.3 mmol/L; ABG HCO3 30 mmol/L (21-25); ABG Oxygen Saturation 96.8 % (94-97); ABG PCO2 67 mmHg (35-45); ABG PH 7.26 (7.35-7.45); ABG PO2 103 mmHg (83-108); ABG TCO2 32 mmol/L (19-24)
[2019-02-21 05:25] LABS: HCT 35.7 % (39.0-53.0); HGB 12.2 gm/dL (13.0-17.5); MCH 33.3 pg (25.0-35.0); MCHC 34.1 g/dL (31.0-37.0); MCV 97.7 fL (80.0-100.0); RBC 3.66 m/uL (4.30-5.90); RDW 14.8 % (11.5-15.5); WBC 15.5 k/uL (3.8-10.6)
[2019-02-21 05:28] LABS: Glucose,Whole Blood 198 mg/dL (75-99)
[2019-02-21 05:30] LABS: Platelet Count 24 k/uL (150-450)
[2019-02-21 05:35] LABS: Magnesium 2.4 mg/dL (1.6-2.3); Phosphorus 8.7 mg/dL (2.5-4.5)
[2019-02-21 05:46] LABS: Calcium 5.6 mg/dL (8.4-10.2)
--- NOTE | 2019-02-21 05:50 | PCN ---
PROCEDURE NOTE PROCEDURE: Left-sided chest tube. PREOPERATIVE DIAGNOSIS: Tension pneumothorax. POSTOPERATIVE DIAGNOSIS: Tension pneumothorax. PROCEDURE: A 28-[place] chest tube was placed in the lateral chest at the 5th intercostal space. There was no immediate complication. When I entered the pleural space with blunt forceps, there was a significant whoosh of air suggesting air under tension in the pleural space. A chest tube was inserted. It was sutured in place. There was no immediate complication. It was connected to a Pleur-evac. The patient's subsequent chest x-ray looks much improved and the lung was much better expanded. There was no immediate complication. A follow-up chest x-ray as mentioned was done. MMODL / IJN: [id number] /
[2019-02-21 06:22] LABS: Glucose,Whole Blood 228 mg/dL (75-99)
[2019-02-21] MEDS ORDERED: CALCIUM GLUCONATE 2 GM in SODIUM CHLORIDE 0.9% 100 ML IVPB ONE (07:00)
[2019-02-21] MEDS: CALCIUM CARBONATE 500 MG CHEWABLE PO SCH ×2 (08:24→21:07)
[2019-02-21] MEDS: CHLORHEXIDINE GLUCONATE 15 ML CUP MUCOUS MEM SCH ×2 (08:24→21:07)
[2019-02-21] MEDS: ASPIRIN 81 MG PO SCH (08:25)
[2019-02-21] MEDS: PANTOPRAZOLE 40 MG/10 ML VIAL IVP SCH ×2 (08:25→21:07)
--- NOTE | 2019-02-21 08:27 | XR ---
EXAMINATION TYPE: XR chest 1V portable DATE OF EXAM: 02/21/2019 COMPARISON: Prior chest x-ray dated 02/20/2019 HISTORY: Intubated, chest tube TECHNIQUE: Single frontal view of the chest is obtained. FINDINGS: 2 left-sided chest tubes are in place, the thoracic vent is coiled overlying the left ches t. Endotracheal tube and NG tube are overlying appropriate positions, right jugular central venous ca theter is stable. Minimal left apical pneumothorax is suspected. There is interval obscured appearanc e to the hemidiaphragms. Heart size is likely stable. Perihilar airspace disease is noted. Subcutaneo us emphysema again seen. IMPRESSION: Correlate for ARDS, congestive heart failure, pneumonia. Difficult to exclude effusion. Follow-up recommended.
--- NOTE | 2019-02-21 09:21 | P.PN ---
Subjective This is a 63 years old female with past medical history of congestive heart failure, coronary artery disease status post cardiac catheterization and stent placement. Patient presents with severe dyspnea, area she's been diagnosed with influenza a at urgent care parenchyma to the hospital. In the emergency room patient was found to be significantly dyspneic and hypoxic, and her blood pressure was on the low side. Patient eventually was intubated and transferred to the intensive care unit. Patient could not provide information so I was madi en from the chart. She has had oliguria, with lactic acidosis, acute renal failure. Chest x-ray showing left upper lobe infiltrate, with interstitial edema. Patient also has new elevated troponin for which cheese grader has been consulted 02/18/2019 Patient remains in the ICU,chest x-ray this morning showing increased and the patient left side pneumothorax,patient has left chest thoravent placed this morning. With anolother thoraventhas to be placed againand eventually chest tube has to be placed with improvement in the pneumothorax. Input and help from cardiothoracic and pulmonary/crtical care team is appreciated.patient still tachycardic and on mechanical ventilation. Patient is also acidotic, and high lactic acid at 7.6. Patient remains on pressors to support his blood pressure. GI consult is appreciated, reevaluated the patient for coffee-ground emesis from NG tube rate hemoglobin stable, and as per the recommendation no need for endoscopic evaluation or therapy.patient is on Protonix twice a day 02/19/2019 Patient remains in the ICU. He is intubated and sedated. Vent management with pulmonary critical care team following the case closely. Patient remains on norepinephrine drip to support his blood pressure. Patient also with cautery hemodialysis today. He has a fever of 102. Tylenol as provided as well as local measures . WBC is 14.4 K. Creatinine went up from 5.5 to 7.23. Sputum culture is growing strep pyogenes. Patient is on clindamycin and Tamiflu. 02/20/2019 pt remains in the ICU and he is still intubated and vent is been managed by the pulmonary/critical care unit. His repeat chest x-ray from today shows interval increase in size of the left side pneumothorax which measured approximately 25- 30%. Patient remains on chest tube and thoracic vent. And pulmonary team also the case. Patient today has cyanosis of the fingers and toes, most likely secondarily appropriate doses is decreased, his pressor management is by the pulmonary critical care unit. And removal of the recommendation. pt is on ceftriaxone and clindamycin. His WBC is 18.5 K. PH 7.2. Creatinine went up to 7.23. Calcium 5.5. Nephrology team are planning for dialysis. An Tamiflu. Patient has been followed by several consultants including pulmonary, cardiology, nephrology, infectious disease. Discussed with her today and her questions were answered to her satisfaction. 02/21/2019 Patient remains intubated to the ICU. And he still needsr norepinephrine at 0.05 currently. Patient has worsening pneumothorax that mandated a second chest tube but now is improving. She'll continue with tube feeding which was a started. His sugar is high side 200-240, increase Levemir doses. Hematemesis stable. Still needs hemodialysis. review of systems: N/a Objective - Vital Signs Vital signs: Vital Signs Temp 96.6 F L 02/21/19 08:00 Pulse 89 02/21/19 08:00 Resp 40 H 02/21/19 08:00 BP 99/67 02/20/19 03:00 Pulse Ox 96 02/21/19 08:00 Intake & Output 02/20/19 02/21/19 02/21/19 18:59 06:59 18:59 Intake Total 1561.528 984.588 90 Output Total 565 900 4 Balance 996.528 84.588 86 Weight 112 kg Intake: IV 240 240 90 Dextrose 5% in Water 1, 50 000 ml @ 50 mls/hr IV . Q23H NI with Sodium Bicarb (1 Meq/ml) 150 ml Rx#:[id number] Sodium Chloride 0.9% 1, 240 240 40 000 ml @ 20 mls/hr IV . Q24H NI Rx#:[id number] Intake, IV Titration 1231.528 744.588 0 Amount Cisatracurium 200 mg In 34.402 Sodium Chloride 0.9% 180 ml @ 1 MCG/KG/MIN 6.18 mls/hr IV .Q24H NI Rx#: [id number] Dextrose 5% in Water 1, 650 50 000 ml @ 50 mls/hr IV . Q23H NI with Sodium Bicarb (1 Meq/ml) 150 ml Rx#:[id number] Dextrose 5% in Water 1, 565 0 000 ml @ 50 mls/hr IV . Q23H NI with Sodium Bicarb (1 Meq/ml) 150 ml Rx#:[id number] Norepinephrine 32 mg In 266.550 33.828 Sodium Chloride 0.9% 218 ml @ 0.05 MCG/KG/MIN 2. 233 mls/hr IV .Q24H NI Rx#:[id number] Propofol 1,000 mg In 230.576 95.76 Empty Bag 1 bag @ Titrate IV .Q0M NI Rx#: [id number] cefTRIAXone 2 gm In 50 Sodium Chloride 0.9% 50 ml @ 100 mls/hr IVPB Q24H NI Rx#:[id number] Tube Feeding 90 Output: Chest Tube Drainage 50 100 Chest Tube Left 50 100 Gastric Drainage 800 Urine 15 0 4 Other 500 Other: Voiding Method Indwelling Catheter Indwelling Catheter ABP, PAP, CO, CI - Last Documented Arterial Blood Pressure 101/56 - Exam -GENERAL: The patient is intubated and sedated HEENT: Pupils are round and equally reacting to light. EOMI. No scleral icterus. No conjunctival pallor. Normocephalic, atraumatic. No pharyngeal erythema. No thyromegaly. CARDIOVASCULAR: S1 and S2 present. No murmurs, rubs, or gallops. -PULMONARY: Chest is bilateral harsh breath sounds, with scattered wheezing ABDOMEN: Soft, nontender, nondistended, normoactive bowel sounds. No palpable organomegaly. MUSCULOSKELETAL: No joint swelling or deformity. EXTREMITIES: No cyanosis, clubbing, or pedal edema. -NEUROLOGICAL:patient is sedated and intubated Gross neurological examination did not reveal any focal deficits. SKIN: No rashes. - Labs CBC & Chem 7: 02/21/19 05:00 02/21/19 05:00 Labs: Abnormal Lab Results - Last 24 Hours (Table) 02/20/19 02/20/19 02/20/19 Range/Units 04:20 13:53 17:19 WBC (3.8-10.6) k/uL RBC (4.30-5.90) m/uL Hgb (13.0-17.5) gm/dL Hct (39.0-53.0) % Plt Count (150-450) k/uL ABG pH 7.24 L (7.35-7.45) ABG pCO2 66 H (35-45) mmHg ABG pO2 63 L (83-108) mmHg ABG HCO3 28 H (21-25) mmol/L ABG Total CO2 30 H (19-24) mmol/L ABG O2 Saturation 86.6 L (94-97) % Sodium (137-145) mmol/L Chloride (98-107) mmol/L BUN (9-20) mg/dL Creatinine (0.66-1.25) mg/dL Glucose (74-99) mg/dL POC Glucose (mg/dL) 234 H (75-99) mg/dL Calcium (8.4-10.2) mg/dL Phosphorus (2.5-4.5) mg/dL Magnesium (1.6-2.3) mg/dL Vitamin D 25-Hydroxy 10.9 L (30.0-100.0) ng/mL 02/20/19 02/20/19 02/20/19 Range/Units 18:26 21:25 23:59 WBC (3.8-10.6) k/uL RBC (4.30-5.90) m/uL Hgb (13.0-17.5) gm/dL Hct (39.0-53.0) % Plt Count (150-450) k/uL ABG pH (7.35-7.45) ABG pCO2 (35-45) mmHg ABG pO2 (83-108) mmHg ABG HCO3 (21-25) mmol/L ABG Total CO2 (19-24) mmol/L ABG O2 Saturation (94-97) % Sodium (137-145) mmol/L Chloride (98-107) mmol/L BUN (9-20) mg/dL Creatinine (0.66-1.25) mg/dL Glucose (74-99) mg/dL POC Glucose (mg/dL) 202 H 216 H 249 H (75-99) mg/dL Calcium (8.4-10.2) mg/dL Phosphorus (2.5-4.5) mg/dL Magnesium (1.6-2.3) mg/dL Vitamin D 25-Hydroxy (30.0-100.0) ng/mL 02/21/19 02/21/19 02/21/19 Range/Units 05:00 05:00 05:00 WBC 15.5 H (3.8-10.6) k/uL RBC 3.66 L (4.30-5.90) m/uL Hgb 12.2 L (13.0-17.5) gm/dL Hct 35.7 L (39.0-53.0) % Plt Count 24 L (150-450) k/uL ABG pH 7.26 L (7.35-7.45) ABG pCO2 67 H (35-45) mmHg ABG pO2 (83-108) mmHg ABG HCO3 30 H (21-25) mmol/L ABG Total CO2 32 H (19-24) mmol/L ABG O2 Saturation (94-97) % Sodium 132 L (137-145) mmol/L Chloride 94 L (98-107) mmol/L BUN 87 H (9-20) mg/dL Creatinine 7.14 H* (0.66-1.25) mg/dL Glucose 213 H (74-99) mg/dL POC Glucose (mg/dL) (75-99) mg/dL Calcium 5.6 L* (8.4-10.2) mg/dL Phosphorus 8.7 H (2.5-4.5) mg/dL Magnesium 2.4 H (1.6-2.3) mg/dL Vitamin D 25-Hydroxy (30.0-100.0) ng/mL 02/21/19 02/21/19 Range/Units 05:17 06:11 WBC (3.8-10.6) k/uL RBC (4.30-5.90) m/uL Hgb (13.0-17.5) gm/dL Hct (39.0-53.0) % Plt Count (150-450) k/uL ABG pH (7.35-7.45) ABG pCO2 (35-45) mmHg ABG pO2 (83-108) mmHg ABG HCO3 (21-25) mmol/L ABG Total CO2 (19-24) mmol/L ABG O2 Saturation (94-97) % Sodium (137-145) mmol/L Chloride (98-107) mmol/L BUN (9-20) mg/dL Creatinine (0.66-1.25) mg/dL Glucose (74-99) mg/dL POC Glucose (mg/dL) 198 H 228 H (75-99) mg/dL Calcium (8.4-10.2) mg/dL Phosphorus (2.5-4.5) mg/dL Magnesium (1.6-2.3) mg/dL Vitamin D 25-Hydroxy (30.0-100.0) ng/mL Microbiology - Last 24 Hours (Table) 02/16/19 19:00 Blood Culture - Preliminary Blood No Growth after 96 hours 02/18/19 11:45 Gram Stain - Preliminary Pleural Fluid Body Fluid Culture - Preliminary Assessment and Plan Assessment: Acute respiratory failure status post intubation Septic shock secondary to influenza infection and pneumonia Left-sided pneumothorax, need chest tube stress induced hematemesis, evaluated by GI team Acute renal failure with oliguria Lactic acidosis Elevated troponin, evaluated by cheese grader Plan: This is a 63 years old female who presents because of septic shock, secondary to pneumonia and influenza infection, renal failure, elevated troponin. lactic acid Pulmonary/critical care unit, cheese grader and sed high school teacher, cake former, cardiothoracic surgeon R following the patient. Patient to continue on ant ibiotics. Continue with aspirin. Patient is on steroids and IV fluids.. [facility] recommended beta janice and echocardiogram.Labs and medication were reviewed.. Continue same treatment. Continue with symptomatic treatment. Resume home medication. Monitor lytes and vitals. DVT and GI prophylaxis. Further recommendations of the clinical course of the patient DVT prophylaxis: Subcutaneous Lovenox. Hemoglobin stable and patient is high- risk for thrombosis. Keep monitoring GI Prophylaxis: Protonix Prognosis is guarded
[2019-02-21] MEDS: NICOTINE 21MG/24HR PATCH TRANSDERM SCH (09:43)
--- NOTE | 2019-02-21 09:58 | PN ---
PROGRESS NOTE DATE OF SERVICE: 02/21/2019. This is a 63-year-old patient who was admitted on February 16. He was admitted with a diagnosis of influenza, respiratory failure and pneumonia involving the left lung. The patient also presented with acute septic shock secondary to influenza infection and also strep pyogenes pneumonia. He developed ARDS requiring intubation, mechanical ventilation, high concentrations of FiO2 and PEEP levels. The patient also developed a left-sided pneumothorax. He has had 2 Thora-Vents on the left and one chest tube on the left. He apparently was leaking from all 3 yesterday. Yesterday, cardiothoracic surgery removed one of the Thora Vents because it was not actually functional. Subsequent to that, the patient developed a worsening pneumothorax and tension pneumothorax and I inserted another left-sided chest tube. The patient immediately stabilized. In addition, he has a history of profound metabolic acidosis, elevated troponin levels, and left-sided pneumothorax as mentioned. I had a long discussion with the family yesterday. This included 2 sisters and a . They understand the gravity of the situation. Currently, he is on the volume assist- control mode rate of 40, tidal volume 450, FiO2 60%, PEEP of 16. Blood gases show a PO2 of 103, pCO2 of 67, and a pH of 7.26. These gases were done on 70%. His chest x- ray does show full expansion of the left lung with 2 chest tubes and Thora-Vent on the left side. The patient is getting sodium bicarbonate drip including 3 amps of sodium bicarbonate and D5W at 50 mL an hour, cyst AtriCure or Nimbex at 1 mcg/kg per minute, propofol at 30 mcg/kg per minute, Levophed at 3 mcg/minute and tube feeds are on hold because of high residuals. I am going to ask the nurse to give the patient Reglan 10 mg q.6, start the tube feeds after the first two doses of Reglan at 10 mL an hour in attempt to discontinue the paralysis. I will talk to the family again today. This current vital signs are reviewed. Temperature is 96.6, heart rate 89, respiratory rate 40, blood pressure 101/56, saturations are 96%. Appears in no acute distress. Currently sedated and paralyzed. HEENT examination is grossly unremarkable. There is an orally placed endotracheal tube and NG tube. Neck is supple. Full range of motion. No adenopathy or thyromegaly. Neck veins are flat. Cardiovascular examination reveals regular rhythm and rate. S1, S2 normal. No S3, S4, or murmur. Heart rate is 89. Lungs reveal some coarse rhonchi. Breath sounds are diminished. Breath sounds are equal bilaterally. No crackles. Abdomen is soft. Bowel sounds are heard. No masses or tenderness. Extremities are intact. He does have acrocyanosis mottling in the veto reticularis. Skin otherwise is not abnormal. Neurologic examination could not be adequately performed. Chest x-ray is reviewed. It shows diffuse bilateral infiltrates. It does show 2 chest tubes on the left. There is a central line as well. There was only a minimal left apical pneumothorax. Microbiologic studies were positive for strep pyogenes in the sputum. LAB DATA: Reviewed. White count 15.5, hemoglobin 12.2, hematocrit 35.7, platelet count 24,000. Sodium 132, potassium 5, chloride 94, CO2 is 28, anion gap is 10, BUN and creatinine were 87 and 7.14. The patient is currently receiving hemodialysis. Calcium 5.6. Medications are reviewed. They were reviewed fully yesterday. Currently, the patient is on Rocephin and clindamycin. ASSESSMENT: 1. Acute hypoxemic respiratory failure requiring intubation and mechanical ventilation on February 17, 2019 with development of acute respiratory distress syndrome (ARDS), likely secondary to sepsis, both from influenza and Streptococcus pyogenes pneumonia. 2. Acute septic shock secondary to influenza infection complicated by Streptococcus pyogenes pneumonia. 3. Recurrent left-sided pneumothorax, status post Thora-Vent x2 and left chest tube x2 with relief of tension pneumothorax yesterday. 4. Acute pneumonia secondary to Streptococcus pyogenes. 5. Acute sepsis/septic shock. 6. Acute kidney injury secondary to acute tubular necrosis, with dialysis requirements beginning on February 19. 7. History of coronary artery disease with previous stent placement. 8. Profound metabolic acidosis secondary to shock and renal failure. 9. Fluid overload. 10.Elevated troponins, likely reflecting supply/demand mismatch. PLAN: The patient is doing again about the same as he did yesterday. The patient is maintained on the mechanical ventilator. He has two chest tubes on the left and one Thora-Vent on the left. The left apical pneumothorax has been completely relieved and the patient remains on a number drugs including a sodium bicarbonate drip, Nimbex, propofol and Levophed at 3 mcg/minute. Tube feeds are currently on hold, but we are going to add some Reglan and resume the tube feeds after the first two doses of Reglan. The patient's Nimbex will be attempted to be discontinued today. Overall, the patient is doing poorly. I did discuss this with the family yesterday. They do understand. We will continue to try to support him through this illness. Critical care time is 36 minutes. MATT / LELIAN: [id number] /
[2019-02-21] MEDS ORDERED: INSULIN DETEMIR (LEVEMIR) 100 UNIT/ML SYR SQ ONE (10:00)
[2019-02-21 12:21] LABS: Glucose,Whole Blood 156 mg/dL (75-99)
[2019-02-21] MEDS: METOCLOPRAMIDE 5 MG/ML 2 ML VIAL IVP SCH ×3 (12:24→23:56)
--- NOTE | 2019-02-21 14:31 | P.PN ---
Subjective Progress Note Date: 02/21/19 Principal diagnosis: Influenza A, acute respiratory failure with pneumonia, acute kidney injury secondary to acute tubular necrosis secondary to hypotension and sepsis, mild elevation in his troponins, spontaneous left pneumothorax, history of coronary artery disease with prior stenting, hypertension, hyperlipidemia, sputum culture positive for Streptococcus pyogenes and chronic tobacco abuse, current every day smoker. POD #3 left chest Thoravent placement 2 and left thoracostomy tube placement. POD #2 left femoral dialysis catheter placed by Dr. Marinelli. POD #1 placement of second left thoracostomy tube for recurrent pneumothorax despite left thoracostomy tube in place. The patient remains lying in bed in the intensive care unit. He remains on Levophed drip at 5 mcg/m. He remains intubated with mechanical ventilator support. Oxygen saturations are 97% on assist control 40, tidal volume 450, FiO2 60% and PEEP of 16. His T-max temperature in the last 24 hours was 99.6F. Antibiotics treatment is in place, which are being managed by Dr. Shipley from infectious disease. Currently he remains sedated on Diprivan drip at 60 mcg/kg/m and the Nimbex drip is off. He has a Loo catheter in place with marginal urine output. A left femoral dialysis catheter remained in place, hemodialysis sled therapy completed yesterday managed by nephrology. Yesterday afternoon the patient had an episode of decreased oxygen saturation, a chest x- ray was completed which demonstrated a large left pneumothorax despite his left thoracostomy tube and left Thoravent tube in place. Subsequently Dr. Stapleton from critical care medicine placed a second left thoracostomy tube. Once the left pleural chest tube was placed, of the patient did have recovery to his oxygen saturation saturations. Objective - Vital Signs Vital signs: Vital Signs Temp 96.6 F L 02/21/19 08:00 Pulse 85 02/21/19 13:00 Resp 43 H 02/21/19 13:00 BP 99/67 02/20/19 03:00 Pulse Ox 97 02/21/19 12:00 Intake & Output 02/20/19 02/21/19 02/21/19 18:59 06:59 18:59 Intake Total 1561.528 984.588 502.096 Output Total 565 900 504 Balance 996.528 84.588 -1.904 Weight 112 kg Intake: IV 240 240 370 Dextrose 5% in Water 1, 250 000 ml @ 50 mls/hr IV . Q23H NI with Sodium Bicarb (1 Meq/ml) 150 ml Rx#:[id number] Sodium Chloride 0.9% 1, 240 240 120 000 ml @ 20 mls/hr IV . Q24H NI Rx#:[id number] Intake, IV Titration 1231.528 744.588 132.096 Amount Cisatracurium 200 mg In 34.402 Sodium Chloride 0.9% 180 ml @ 1 MCG/KG/MIN 6.18 mls/hr IV .Q24H NI Rx#: [id number] Dextrose 5% in Water 1, 650 50 000 ml @ 50 mls/hr IV . Q23H NI with Sodium Bicarb (1 Meq/ml) 150 ml Rx#:[id number] Dextrose 5% in Water 1, 565 0 000 ml @ 50 mls/hr IV . Q23H NI with Sodium Bicarb (1 Meq/ml) 150 ml Rx#:[id number] Norepinephrine 32 mg In 266.550 33.828 1.184 Sodium Chloride 0.9% 218 ml @ 0.05 MCG/KG/MIN 2. 233 mls/hr IV .Q24H NI Rx#:[id number] Propofol 1,000 mg In 230.576 95.76 130.912 Empty Bag 1 bag @ Titrate IV .Q0M NI Rx#: [id number] cefTRIAXone 2 gm In 50 Sodium Chloride 0.9% 50 ml @ 100 mls/hr IVPB Q24H NI Rx#:[id number] Tube Feeding 90 Output: Chest Tube Drainage 50 100 Chest Tube Left 50 100 Gastric Drainage 800 Urine 15 0 4 Other 500 500 Other: Voiding Method Indwelling Catheter Indwelling Catheter Indwelling Catheter ABP, PAP, CO, CI - Last Documented Arterial Blood Pressure 95/53 - Constitutional Constitutional Comment(s): Patient remains sedated on Diprivan drip at 60 mcg/kg/m. He is not following any verbal commands at this time due to his sedation. General appearance: Present: no acute distress, obese - Respiratory Details: Lungs sounds are essentially diminished throughout, some scattered rhonchi present. Respirations are symmetrical and nonlabored with mechanical ventilator support. Current ventilator settings are as follows: Assist control 40, tidal volume 450, FiO2 60%, PEEP 16. Oxygen saturations on current mechanical ventilator settings are 97%. Left upper anterior Thoravent tube in place to low continuous wall suction -20 cm H2O. No air leak is present, no drainage is present. Left thoracostomy tubes in place to low continuous suction -20 cm H2O. Air leak is present. A draining thin serosanguineous drainage. - Cardiovascular Details: Regular rhythm and rate. S1 and S2 present, negative for S3, gallop or murmur. Bedside telemetry showing normal sinus rhythm heart rate 90. Pulses were present per Doppler to all 4 extremities. - Gastrointestinal Gastrointestinal Comment(s): Abdomen is soft, slightly distended. Hypoactive bowel sounds present in all 4 abdominal quadrants. No organomegaly. OG tube in place with tube feeding on hold at this time. - Genitourinary Genitourinary Comment(s): Loo catheter for accurate I&O. Draining scant kevin color urine. - Integumentary Integumentary Comment(s): Skin is intact, cold to touch to his extremities. Mottled areas present to his bilateral upper and lower extremities mainly to his hands and feet. Somewhat improved today. - Neurologic Neurologic Comment(s): Unable to assess due to his sedation of propofol at 60 mcg/kg/m. - Musculoskeletal Musculoskeletal Comment(s): Remains sedated on Diprivan at 60 mcg/kg/m. - Allied health notes Allied health notes reviewed: nursing - Labs CBC & Chem 7: 02/21/19 05:00 02/21/19 05:00 Labs: Abnormal Lab Results - Last 24 Hours (Table) 02/20/19 02/20/19 02/20/19 Range/Units 04:20 17:19 18:26 WBC (3.8-10.6) k/uL RBC (4.30-5.90) m/uL Hgb (13.0-17.5) gm/dL Hct (39.0-53.0) % Plt Count (150-450) k/uL ABG pH 7.24 L (7.35-7.45) ABG pCO2 66 H (35-45) mmHg ABG pO2 63 L (83-108) mmHg ABG HCO3 28 H (21-25) mmol/L ABG Total CO2 30 H (19-24) mmol/L ABG O2 Saturation 86.6 L (94-97) % Sodium (137-145) mmol/L Chloride (98-107) mmol/L BUN (9-20) mg/dL Creatinine (0.66-1.25) mg/dL Glucose (74-99) mg/dL POC Glucose (mg/dL) 202 H (75-99) mg/dL Calcium (8.4-10.2) mg/dL Phosphorus (2.5-4.5) mg/dL Magnesium (1.6-2.3) mg/dL Vitamin D 25-Hydroxy 10.9 L (30.0-100.0) ng/mL 02/20/19 02/20/19 02/21/19 Range/Units 21:25 23:59 05:00 WBC 15.5 H (3.8-10.6) k/uL RBC 3.66 L (4.30-5.90) m/uL Hgb 12.2 L (13.0-17.5) gm/dL Hct 35.7 L (39.0-53.0) % Plt Count 24 L (150-450) k/uL ABG pH (7.35-7.45) ABG pCO2 (35-45) mmHg ABG pO2 (83-108) mmHg ABG HCO3 (21-25) mmol/L ABG Total CO2 (19-24) mmol/L ABG O2 Saturation (94-97) % Sodium (137-145) mmol/L Chloride (98-107) mmol/L BUN (9-20) mg/dL Creatinine (0.66-1.25) mg/dL Glucose (74-99) mg/dL POC Glucose (mg/dL) 216 H 249 H (75-99) mg/dL Calcium (8.4-10.2) mg/dL Phosphorus (2.5-4.5) mg/dL Magnesium (1.6-2.3) mg/dL Vitamin D 25-Hydroxy (30.0-100.0) ng/mL 02/21/19 02/21/19 02/21/19 Range/Units 05:00 05:00 05:17 WBC (3.8-10.6) k/uL RBC (4.30-5.90) m/uL Hgb (13.0-17.5) gm/dL Hct (39.0-53.0) % Plt Count (150-450) k/uL ABG pH 7.26 L (7.35-7.45) ABG pCO2 67 H (35-45) mmHg ABG pO2 (83-108) mmHg ABG HCO3 30 H (21-25) mmol/L ABG Total CO2 32 H (19-24) mmol/L ABG O2 Saturation (94-97) % Sodium 132 L (137-145) mmol/L Chloride 94 L (98-107) mmol/L BUN 87 H (9-20) mg/dL Creatinine 7.14 H* (0.66-1.25) mg/dL Glucose 213 H (74-99) mg/dL POC Glucose (mg/dL) 198 H (75-99) mg/dL Calcium 5.6 L* (8.4-10.2) mg/dL Phosphorus 8.7 H (2.5-4.5) mg/dL Magnesium 2.4 H (1.6-2.3) mg/dL Vitamin D 25-Hydroxy (30.0-100.0) ng/mL 02/21/19 02/21/19 Range/Units 06:11 12:09 WBC (3.8-10.6) k/uL RBC (4.30-5.90) m/uL Hgb (13.0-17.5) gm/dL Hct (39.0-53.0) % Plt Count (150-450) k/uL ABG pH (7.35-7.45) ABG pCO2 (35-45) mmHg ABG pO2 (83-108) mmHg ABG HCO3 (21-25) mmol/L ABG Total CO2 (19-24) mmol/L ABG O2 Saturation (94-97) % Sodium (137-145) mmol/L Chloride (98-107) mmol/L BUN (9-20) mg/dL Creatinine (0.66-1.25) mg/dL Glucose (74-99) mg/dL POC Glucose (mg/dL) 228 H 156 H (75-99) mg/dL Calcium (8.4-10.2) mg/dL Phosphorus (2.5-4.5) mg/dL Magnesium (1.6-2.3) mg/dL Vitamin D 25-Hydroxy (30.0-100.0) ng/mL Microbiology - Last 24 Hours (Table) 02/18/19 11:45 Gram Stain - Preliminary Pleural Fluid Body Fluid Culture - Preliminary 02/16/19 19:00 Blood Culture - Preliminary Blood No Growth after 96 hours - Imaging and Cardiology Chest x-ray: report reviewed, image reviewed Assessment and Plan Assessment: 1. Acute respiratory failure with pneumonia and influenza A infection. 2. Acute sepsis with lactic acidosis. Sputum culture positive for Streptococcus pyogenes. 3. Acute kidney injury secondary to acute tubular necrosis secondary to hypotension and sepsis. 4. Metabolic acidosis secondary to acute kidney injury and lactic acidosis. 5. Spontaneous left pneumothorax. 6. History of coronary artery disease with prior stenting. 7. History of hypertension. 8. History of hyperlipidemia 9. Mild elevation of troponin. 10. Chronic tobacco abuse, currently day smoker. Plan: 1. Continue left pleural chest tube to low continuous wall suction -20 cm H2O. 2. Critical care management recommendations per Dr. Stapleton. 3. Pulmonary and mechanical ventilator recommendations per pulmonology. 4. Antibiotic management per Dr. Shipley recommendations. Sputum culture showing positive for strep pyogenes. 5. Continue GI and DVT prophylaxis. Currently on Protonix, bilateral lower extremity SCDs. 6. Avoid nephrotoxic agents, nephrology is following. 7. Continue to hold Lovenox as his platelet count today are 24. HIT panel results pending. 8. More recommendations to follow based on patient's clinical course. Time with Patient: Greater than 30
[2019-02-21] MEDS: SODIUM CHLORIDE 0.9% 1,000 ML IV SCH (16:30)
[2019-02-21] MEDS ORDERED: HYDROmorphone 1 MG/ML 1 ML SYRINGE IVP PRN (17:46)
[2019-02-21] MEDS: DEXTROSE 5% IN WATER 1,000 ML with SODIUM BICARB (1 MEQ/ML) 150 ML IV SCH (18:03)
[2019-02-21] MEDS: HYDROmorphone 1 MG/ML 1 ML SYRINGE IVP PRN (18:33)
[2019-02-21 18:39] LABS: Glucose,Whole Blood 166 mg/dL (75-99)
--- NOTE | 2019-02-21 20:10 | PN ---
PROGRESS NOTE The patient is seen for followup for acute kidney injury secondary to severe ATN, currently oliguric and hemodialysis dependent. Patient is having his third treatment of hemodialysis today. We tried for UF of about 500 mL and patient tolerated that well. He will be scheduled for dialysis again tomorrow. He has been off of Levophed. He continues to have no significant urine output. He has a chest tube for pneumothorax. The patient remains on the vent, FiO2 is at about 60, which is down from 70 yesterday. PHYSICAL EXAMINATION: This morning blood pressure was 97/57. Heart rate of 80 per minute. Patient is afebrile. Examination of the heart S1, S2. Examination of the lungs bilateral breath sounds are heard. There is subcutaneous crepitus felt. The patient has a chest tube on the left side. Abdomen is distended. Examination of lower extremities shows edema 2+ with discoloration of the toes noted on both feet, worse on the right leg. DRESS OPERATOR exam cannot be performed. The patient is sedated. LAB: Show hemoglobin 12.2, white cell count 15.5. Sodium 132, potassium 5.0, BUN 87, serum creatinine 7.1, calcium was 5.6, magnesium 2.4, phosphorus 8.7. ASSESSMENT: 1. Acute kidney injury, acute tubular necrosis, currently oliguric and hemodialysis dependent. Patient will be dialyzed again tomorrow and we will increase the UF to about 1-1.5 L as tolerated. 2. Volume overload, increase UF with hemodialysis tomorrow. 3. Vent dependent respiratory failure with acute hypoxic respiratory failure from influenza and strep pyogenes pneumonia maintained on antibiotics. 4. Left pneumothorax status post chest tube and Thoravent x2. 5. Hypotension from sepsis and septic shock, somewhat improved. The patient is off of Levophed. 6. History of coronary artery disease with coronary stent placement. 7. Severe metabolic acidosis from septic shock and renal failure status post bicarb drip, currently improved. PLAN: Repeat dialysis in a.m. I will discontinue the bicarb drip and consider imaging of the abdomen as patient is not tolerating tube feeds. He has been started on Reglan. He may have underlying bowel edema as well. Plan repeat dialysis in a.m. DC bicarb drip. Increase UF as tolerated tomorrow. We will continue to maintain patient on daily dialysis. MMODL / IJN: [id number] /
[2019-02-21] MEDS ORDERED: DEXTROSE 5% IN WATER 1,000 ML with SODIUM BICARB (1 MEQ/ML) 150 ML IV SCH (21:00)
[2019-02-21] MEDS: ERGOCALCIFEROL 50,000 UNIT CAP PO SCH (21:05)
[2019-02-21] MEDS: INSULIN DETEMIR (LEVEMIR) 100 UNIT/ML SYR SQ SCH (21:07)
[2019-02-21 23:49] LABS: Glucose,Whole Blood 136 mg/dL (75-99)
[2019-02-22] MEDS: HYDROmorphone 1 MG/ML 1 ML SYRINGE IVP PRN ×5 (00:29→19:59)
[2019-02-22] MEDS: PROPOFOL 1,000 MG in EMPTY BAG 1 BAG IV SCH ×8 (01:36→20:40)
[2019-02-22] MEDS: ARTIFICIAL TEARS-HYPROMELLOSE DROPS 15 ML BTL BOTH EYES SCH ×6 (03:54→22:56)
[2019-02-22] MEDS: IPRATROPIUM-ALBUTEROL 3 ML NEB INHALATION SCH ×6 (03:54→23:17)
[2019-02-22] MEDS: HYDROCORTISONE SUCCINATE 100 MG/2 ML VIAL IV SCH ×3 (03:54→19:56)
[2019-02-22 05:17] LABS: ABG Base Excess 2.7 mmol/L; ABG HCO3 28 mmol/L (21-25); ABG Oxygen Saturation 98.9 % (94-97); ABG PCO2 53 mmHg (35-45); ABG PH 7.34 (7.35-7.45); ABG PO2 180 mmHg (83-108); ABG TCO2 30 mmol/L (19-24)
[2019-02-22] MEDS: METOCLOPRAMIDE 5 MG/ML 2 ML VIAL IVP SCH ×4 (06:06→22:55)
[2019-02-22] MEDS: INSULIN ASPART (NovoLOG) 100 UNIT/ML VIAL SQ SCH ×3 (06:07→18:46)
[2019-02-22 06:23] LABS: Glucose,Whole Blood 167 mg/dL (75-99)
[2019-02-22 06:41] LABS: Magnesium 2.4 mg/dL (1.6-2.3); Phosphorus 8.2 mg/dL (2.5-4.5); Potassium 5.5 mmol/L (3.5-5.1)
[2019-02-22 06:46] LABS: HCT 36.3 % (39.0-53.0); HGB 12.7 gm/dL (13.0-17.5); MCH 34.3 pg (25.0-35.0); MCV 97.9 fL (80.0-100.0); Mean Platelet Volume 11.4; RBC 3.71 m/uL (4.30-5.90); RDW 14.8 % (11.5-15.5); WBC 22.9 k/uL (3.8-10.6)
[2019-02-22 06:53] LABS: Calcium 6.2 mg/dL (8.4-10.2)
[2019-02-22 07:01] LABS: Platelet Count 42 k/uL (150-450)
[2019-02-22] MEDS ORDERED: CALCIUM GLUCONATE 2 GM in SODIUM CHLORIDE 0.9% 100 ML IVPB ONE (08:00)
--- NOTE | 2019-02-22 08:10 | XR ---
EXAMINATION TYPE: XR chest 1V portable DATE OF EXAM: 02/22/2019 COMPARISON: Prior chest x-ray 02/21/2019 HISTORY: Intubated, chest tubes TECHNIQUE: Single frontal view of the chest is obtained. FINDINGS: 2 left-sided chest tubes, thoracic vent, endotracheal tube, NG tube, right jugular central venous catheter all again noted. There is some improved aeration compared to prior exam especially a t the lung bases. There is no evident pneumothorax. Heart size is stable. There are overlying cardiac leads. IMPRESSION: Improvement in aeration.
[2019-02-22] MEDS: PANTOPRAZOLE 40 MG/10 ML VIAL IVP SCH ×2 (08:43→19:56)
[2019-02-22] MEDS: CALCIUM CARBONATE 500 MG CHEWABLE PO SCH ×2 (08:43→19:59)
[2019-02-22] MEDS: NICOTINE 21MG/24HR PATCH TRANSDERM SCH (08:43)
[2019-02-22] MEDS: CHLORHEXIDINE GLUCONATE 15 ML CUP MUCOUS MEM SCH ×2 (08:43→19:56)
[2019-02-22] MEDS: ASPIRIN 81 MG PO SCH (08:43)
[2019-02-22] MEDS: CLINDAMYCIN 900 MG in DEXTROSE 5% IN WATER 50 ML IVPB SCH ×6 (10:02→22:55)
--- NOTE | 2019-02-22 10:05 | PN ---
PROGRESS NOTE DATE OF SERVICE: February 22, 2019 This 63-year-old male admitted over the weekend on February 16. He was admitted with diagnosis of acute respiratory failure secondary to influenza and Streptococcus pyogenes pneumonia involving the left lung. He rapidly developed acute lung injury with ARDS. The patient required intubation, mechanical ventilation. He also developed a left-sided pneumothorax. Since that time, he has had 2 Thora-Vents placed on the left side and 2 chest tubes. I placed the most recent chest tube because of tension pneumothorax 2 days ago. Anyway, the patient remains on the ventilator. I did have a long talk with the family yesterday. In addition, the family presented with the name of a physician at [facility], who they thought was a staff physician. Actually when I called there, he was a fellow. It was embarrassing because he really could not offer any additional assistance as he certainly was just in his training program. He did discuss the case with his attending, but again the attending could not really give any advice as the attending did not have the opportunity to review labs, x- rays, chart note, etc. The family was not interested in transferring the patient. They first asked about ECMO as an option for this patient. That is currently not an option. Anyway, the patient remains on the volume assist-control mode rate of 40, tidal volume 450, FiO2 50% turned down from 60, PEEP of 16. Blood gases on the 60% show pO2 of 180, pCO2 of 53, pH 7.34. Sometime later today either I will drop the PEEP down from 16 to 12 or drop the FiO2 down from 50% to 40%. Currently, the patient will receive hemodialysis again today. That is 3 days in a row. Each day so far they removed 500 mL. The patient is on propofol at 60 mcg/kg per minute, norepinephrine at 3 mcg/minute, saline at 10 mL an hour and Vital high-protein at 10 mL an hour. Because of high residuals, the tube feeds were turned off for a period of time and then Reglan was added and tube feeds were resumed. The sputum sample shows Streptococcus pyogenes. Again blood gases show pO2 of 180, pCO2 of 53, and a pH is 7.34. Current vital signs are reviewed. Temperature 97.5, heart rate 89, respiratory rate 40, blood pressure 111/64, mean 79, saturations are 94% to 96%. Central venous pressure is 11. Appears in no acute distress. HEENT examination is grossly unremarkable. There is an orally placed endotracheal tube and NG tube. The patient is currently sedated. NECK: Supple. Full range of motion. No adenopathy or thyromegaly. Neck veins are flat. Cardiovascular examination reveals regular rhythm and rate. Heart rate is about 90 beats per minute. S1, S2 normal. Heart sounds are distant. Lungs reveal coarse rhonchi. Breath sounds are diminished. There is prolongation on forced maneuver. There is a significant air leak on the left side from one of the 2 chest tubes. No crackles. Abdomen is obese. Bowel sounds are noted. Extremities are intact. No cyanosis, clubbing, or edema. Skin without rash. Neurologic examination is difficult to assess given the significant degree of sedation on this patient. Chest x-ray shows improving aeration to both lungs. Labs are reviewed. White count 22.9, hemoglobin 12.7, hematocrit 36.3, platelet count 42,000. Sodium 134, potassium 5.5, chloride 96, CO2 is 23, BUN and creatinine were 78 and 5.97. Calcium 6.2. Microbiologic study show evidence of Streptococcus pyogenes in the sputum from February 17. The influenza studies were positive. His medications are reviewed. Antibiotic simmons, the patient remains on Rocephin and clindamycin. ASSESSMENT: 1. Acute hypoxemic respiratory failure requiring intubation and mechanical ventilation on February 17, 2019, with development of acute respiratory distress syndrome (ARDS), secondary to sepsis, both from influenza and Streptococcus pyogenes pneumonia. 2. Acute septic shock secondary to influenza infection complicated by Streptococcus pyogenes pneumonia. 3. Recurrent left-sided pneumothorax status post Thora-Vent x2 and left chest tube x2 with relief of tension pneumothorax 2 days ago. 4. Acute pneumonia secondary to Streptococcus pyogenes. 5. Acute sepsis/septic shock. 6. Multiorgan system failure. 7. Acute kidney injury secondary to acute tubular necrosis requiring dialysis. 8. History of coronary artery disease with previous stent placement. 9. Profound metabolic acidosis secondary to shock and renal failure. 10.Fluid overload. 11.Elevated troponins, likely reflecting supply/demand mismatch. PLAN: The patient's FiO2 was dropped from 60% to 50%. Gas exchange is improved. Chest x-ray is improved. He is off of a number of different drips including paralysis. He remains on a small amount of Levophed at 3 mcg/minute. The patient will either have his PEEP dropped or his FiO2 dropped in the next 3 or 4 hours. Hemodialysis again for the third straight day. No additional recommendations are made. Prognosis is guarded. Will bump up tube feeds to goal. Hopefully the Reglan will help to prevent residuals. I will continue to talk to the family on a daily basis. Please note that I did talk to the [facility] yesterday but they offer no assistance. CRITICAL CARE TIME: 36 minutes. LAURAL / LELIAN: [id number] /
--- NOTE | 2019-02-22 10:50 | PCN ---
PROCEDURE NOTE ARTERIAL LINE PLACEMENT: Indications: Hemodynamic monitoring. A time-out was completed verifying correct patient, procedure, site, positioning, and implant(s) or special equipment if applicable. Lyndon's test was performed to ensure adequate perfusion. The patient's left wrist was prepped and draped in sterile fashion. 1% Lidocaine was used to anesthetize the area. An 18G Arrow arterial line was introduced into the radial artery. The catheter was threaded over the guide wire and the needle was removed with appropriate pulsatile blood return. Blood loss was minimal. The catheter was then sutured in place to the skin and a sterile dressing applied. Perfusion to the extremity distal to the point of catheter insertion was checked and found to be adequate. The patient tolerated the procedure well and there were no complications. Left arterial line was placed without immediate complications, good waveform was noted, the line was flushed, sutured in place, sterile dressing was applied by the nursing staff. Patient tolerated procedure well. MMODL / IJN: [id number] / MTDD
[2019-02-22] MEDS: SODIUM CHLORIDE 0.9% 1,000 ML IV SCH (12:43)
[2019-02-22 12:53] LABS: Glucose,Whole Blood 154 mg/dL (75-99)
--- NOTE | 2019-02-22 15:56 | P.PN ---
Subjective Progress Note Date: 02/22/19 Principal diagnosis: Spontaneous left sided pneumothorax, acute respiratory failure secondary to influenza A and streptococcus pyogenes pneumonia, acute kidney injury secondary to acute tubular necrosis due to hypotension and sepsis, mild troponin elevation. History of CAD with prior stenting, hypertension, hyperlipidemia, chronic tobacco abuse. Thrombocytopenia. POD #4 left chest thoravent placement x 2 and left thoracostomy tube placement POD #3 left femoral dialysis catheter placed by Dr. Barker POD #2 placement of second left thoracostomy tube for recurrent pneumothorax despite left thoracostomy tube in place The patient is currently laying in bed in the intensive care unit, still mechanically ventilated. Remains on low dose levo but off paralytics. Chest tub es remain in place. Remains in normal sinus rhythm. Sedated on propofol. Received dialysis 3 days in a row. CXR this morning demonstrated better aeration with no pneumothorax. Objective - Vital Signs Vital signs: Vital Signs Temp 98.4 F 02/22/19 12:01 Pulse 92 02/22/19 15:00 Resp 33 H 02/22/19 15:00 BP 114/60 02/22/19 14:00 Pulse Ox 95 02/22/19 15:00 Intake & Output 02/21/19 02/22/19 02/22/19 18:59 06:59 18:59 Intake Total 857.335 8489.081 585.722 Output Total 504 472 4 Balance 487.184 646.081 581.722 Weight 112 kg 114.3 kg Intake: IV 790 580 236 Clindamycin 900 mg In 50 50 Dextrose 5% in Water 50 ml @ 50 mls/hr IVPB Q8HR [facility] Rx#:[id number] Dextrose 5% in Water 1, 550 200 000 ml @ 50 mls/hr IV . Q23H [facility] with Sodium Bicarb (1 Meq/ml) 150 ml Rx#:[id number] Sodium Chloride 0.9% 1, 240 220 180 000 ml @ 20 mls/hr IV . Q24H [facility] Rx#:[id number] cefTRIAXone 2 gm In 50 Sodium Chloride 0.9% 50 ml @ 100 mls/hr IVPB Q24H [facility] Rx#:[id number] pressure bags 60 6 Intake, IV Titration 201.184 488.081 309.722 Amount Calcium Gluconate 2 gm In 100 Sodium Chloride 0.9% 100 ml @ 100 mls/hr IVPB ONCE ONE Rx#:[id number] Dextrose 5% in Water 1, 0 000 ml @ 50 mls/hr IV . Q23H [facility] with Sodium Bicarb (1 Meq/ml) 150 ml Rx#:[id number] Norepinephrine 32 mg In 1.184 34.193 9.722 Sodium Chloride 0.9% 218 ml @ 0.05 MCG/KG/MIN 2. 233 mls/hr IV .Q24H [facility] Rx#:[id number] Propofol 1,000 mg In 200.000 453.888 200 Empty Bag 1 bag @ Titrate IV .Q0M [facility] Rx#: [id number] Tube Feeding 20 10 Other 30 30 Output: Chest Tube Drainage 109 Chest Tube Left 100 Chest Tube Left Lateral 9 Chest Gastric Drainage 350 Urine 4 13 4 Other 500 Other: Voiding Method Indwelling Catheter Indwelling Catheter Indwelling Catheter ABP, PAP, CO, CI - Last Documented Arterial Blood Pressure 117/61 - Constitutional General appearance: Present: no acute distress, obese - Respiratory Details: Lung sounds diminished bilaterally with coarse breath sounds in the bases. Respirations even, non-labored on mechanical ventilation. Current ventilator settings assist control mode, FiO2 50%, TV 450, RR 40, PEEP 12. 8.0 ETT present, 23 at the lip. Left thoravent to continuous wall suction, no drainage, no air leak. Left anterior chest tube to continuous wall suction, 30 mL serosanguinous output total, no air leak. Left posterior chest tube to continuous wall suction, 550 mL serosanguinous output in 24 hours, continuous air leak present. - Cardiovascular Details: S1/S2 present. Regular rate and rhythm, normal sinus rhythm on telemetry. Doppler peripheral pulses bilaterally. No edema present. SCDs present. Left radial arterial line, right internal jugular triple lumen central line present. - Gastrointestinal Gastrointestinal Comment(s): Abdomen soft, non-tender, slightly distended. Active bowel sounds present x 4 quadrants. OGT present, tube feeding infusing at 10 mL/hr. - Genitourinary Genitourinary Comment(s): Loo catheter present draining minimal urine. Left femoral temporary dialysis catheter present. - Integumentary Integumentary Comment(s): Skin is warm and intact. Bilateral lower extremities mottled. - Psychiatric Psychiatric Comment(s): Currently sedated on mechanical ventilation with propofol. - Allied health notes Allied health notes reviewed: nursing - Labs CBC & Chem 7: 02/22/19 05:48 02/22/19 05:48 Labs: Abnormal Lab Results - Last 24 Hours (Table) 02/21/19 02/21/19 02/22/19 Range/Units 18:27 23:37 05:10 WBC (3.8-10.6) k/uL RBC (4.30-5.90) m/uL Hgb (13.0-17.5) gm/dL Hct (39.0-53.0) % Plt Count (150-450) k/uL ABG pH 7.34 L (7.35-7.45) ABG pCO2 53 H (35-45) mmHg ABG pO2 180 H (83-108) mmHg ABG HCO3 28 H (21-25) mmol/L ABG Total CO2 30 H (19-24) mmol/L ABG O2 Saturation 98.9 H (94-97) % Sodium (137-145) mmol/L Potassium (3.5-5.1) mmol/L Chloride (98-107) mmol/L BUN (9-20) mg/dL Creatinine (0.66-1.25) mg/dL Glucose (74-99) mg/dL POC Glucose (mg/dL) 166 H 136 H (75-99) mg/dL Calcium (8.4-10.2) mg/dL Phosphorus (2.5-4.5) mg/dL Magnesium (1.6-2.3) mg/dL 02/22/19 02/22/19 02/22/19 Range/Units 05:48 05:48 06:02 WBC 22.9 H (3.8-10.6) k/uL RBC 3.71 L (4.30-5.90) m/uL Hgb 12.7 L (13.0-17.5) gm/dL Hct 36.3 L (39.0-53.0) % Plt Count 42 L D (150-450) k/uL ABG pH (7.35-7.45) ABG pCO2 (35-45) mmHg ABG pO2 (83-108) mmHg ABG HCO3 (21-25) mmol/L ABG Total CO2 (19-24) mmol/L ABG O2 Saturation (94-97) % Sodium 134 L (137-145) mmol/L Potassium 5.5 H (3.5-5.1) mmol/L Chloride 96 L (98-107) mmol/L BUN 78 H (9-20) mg/dL Creatinine 5.97 H (0.66-1.25) mg/dL Glucose 165 H (74-99) mg/dL POC Glucose (mg/dL) 167 H (75-99) mg/dL Calcium 6.2 L* (8.4-10.2) mg/dL Phosphorus 8.2 H (2.5-4.5) mg/dL Magnesium 2.4 H (1.6-2.3) mg/dL 02/22/19 Range/Units 12:41 WBC (3.8-10.6) k/uL RBC (4.30-5.90) m/uL Hgb (13.0-17.5) gm/dL Hct (39.0-53.0) % Plt Count (150-450) k/uL ABG pH (7.35-7.45) ABG pCO2 (35-45) mmHg ABG pO2 (83-108) mmHg ABG HCO3 (21-25) mmol/L ABG Total CO2 (19-24) mmol/L ABG O2 Saturation (94-97) % Sodium (137-145) mmol/L Potassium (3.5-5.1) mmol/L Chloride (98-107) mmol/L BUN (9-20) mg/dL Creatinine (0.66-1.25) mg/dL Glucose (74-99) mg/dL POC Glucose (mg/dL) 154 H (75-99) mg/dL Calcium (8.4-10.2) mg/dL Phosphorus (2.5-4.5) mg/dL Magnesium (1.6-2.3) mg/dL Microbiology - Last 24 Hours (Table) 02/18/19 11:45 Gram Stain - Final Pleural Fluid Body Fluid Culture - Final 02/16/19 19:00 Blood Culture - Preliminary Blood No Growth after 120 hours - Imaging and Cardiology Chest x-ray: report reviewed, image reviewed Assessment and Plan Assessment: 1. Spontaneous left pneumothorax, status post thoravent and thoracostomy tube placement 2. Acute respiratory failure with influenza A and streptococcus pyrogenes pneumonia 3. Acute kidney injury secondary to acute tubular necrosis, status post temporary dialysis placement with daily dialysis 4. Sepsis with lactic acidosis 5. Troponin elevation 6. History of CAD with prior stenting 7. Hypertension 8. Hyperlipidemia 9. Chronic tobacco dependance 10. Thrombocytopenia, HIT panel negative Plan: 1. Continue left pleural chest tube to continuous wall suction 2. Will monitor daily labs, x-rays 3. Wean ventilator when able. Ventilator management per pulmonology 4. Bronchodilators, steroids per pulmonology 5. Antibiotics per infectious disease. 6. GI/DVT prophylaxis with protonix, SCDs. 7. Avoid nephrotoxic agents. 8. Medical management of other comorbid conditions per primary care service. 9. More recommendations as patient progresses. Time with Patient: Greater than 30
--- NOTE | 2019-02-22 15:56 | PN ---
PROGRESS NOTE Patient is seen for followup for acute kidney injury. He remains hemodialysis dependent. No significant urine output. Levophed is at about 3 mcg. Blood pressure this morning was 102/56, heart rate of 90 per minute, patient is afebrile. FiO2 is down to 50%. Patient remains on propofol. On examination, he is sedated. Examination of the heart S1, S2. Examination of the lungs, bilateral breath sounds are heard. Chest tube is present on the left side and abdomen is soft. The distended examination lower extremities shows edema 2+ bilaterally with discoloration of the toes bilaterally, worse on the right side. NUCLEAR PHYSICIST exam cannot be performed. LABS: Show hemoglobin 12.7, sodium 134, potassium 5.5, chloride 96, BUN 78, serum creatinine 5.97, calcium 6.2, phosphorus 8.2. ASSESSMENT: 1. Acute kidney injury, acute tubular necrosis, currently oliguric and hemodialysis dependent. We will continue with daily dialysis. 2. Volume overload. Increase ultrafiltration as tolerated today and we will continue with daily ultrafiltration and dialysis. 3. Acute hypoxic respiratory failure secondary to influenza A pneumonia. The as well as a strep pyogenes pneumonia which grew from the sputum. 4. Left pneumothorax, status post chest tube. 5. Coronary artery disease with history of coronary artery stent placement. 6. Severe metabolic acidosis from renal failure and septic shock, status post IV bicarb, currently improved with dialysis. The bicarb drip has been discontinued. 7. Abdominal distention. Tube feeds have been restarted. Patient was started on Reglan yesterday. 8. Hypocalcemia associated with nutritional vitamin D deficiency. Currently maintained on oral vitamin D which was started yesterday. Patient is also a maintained on Tums. PLAN: Daily dialysis. Continue with the vitamin D supplementation and increase UF as tolerated with hemodialysis today. We will try longer with the high calcium bath to help with the hypocalcemia. MMODL / IJN: [id number] /
[2019-02-22 18:56] LABS: Glucose,Whole Blood 106 mg/dL (75-99)
--- NOTE | 2019-02-22 20:30 | P.PN ---
Subjective This is a 63 years old female with past medical history of congestive heart failure, coronary artery disease status post cardiac catheterization and stent placement. Patient presents with severe dyspnea, area she's been diagnosed with influenza a at urgent care parenchyma to the hospital. In the emergency room patient was found to be significantly dyspneic and hypoxic, and her blood pressure was on the low side. Patient eventually was intubated and transferred to the intensive care unit. Patient could not provide information so I was madi en from the chart. She has had oliguria, with lactic acidosis, acute renal failure. Chest x-ray showing left upper lobe infiltrate, with interstitial edema. Patient also has new elevated troponin for which grill attendant has been consulted 02/18/2019 Patient remains in the ICU,chest x-ray this morning showing increased and the patient left side pneumothorax,patient has left chest thoravent placed this morning. With anolother thoraventhas to be placed againand eventually chest tube has to be placed with improvement in the pneumothorax. Input and help from cardiothoracic and pulmonary/crtical care team is appreciated.patient still tachycardic and on mechanical ventilation. Patient is also acidotic, and high lactic acid at 7.6. Patient remains on pressors to support his blood pressure. GI consult is appreciated, reevaluated the patient for coffee-ground emesis from NG tube rate hemoglobin stable, and as per the recommendation no need for endoscopic evaluation or therapy.patient is on Protonix twice a day 02/19/2019 Patient remains in the ICU. He is intubated and sedated. Vent management with pulmonary critical care team following the case closely. Patient remains on norepinephrine drip to support his blood pressure. Patient also with cautery hemodialysis today. He has a fever of 102. Tylenol as provided as well as local measures . WBC is 14.4 K. Creatinine went up from 5.5 to 7.23. Sputum culture is growing strep pyogenes. Patient is on clindamycin and Tamiflu. 02/20/2019 pt remains in the ICU and he is still intubated and vent is been managed by the pulmonary/critical care unit. His repeat chest x-ray from today shows interval increase in size of the left side pneumothorax which measured approximately 25- 30%. Patient remains on chest tube and thoracic vent. And pulmonary team also the case. Patient today has cyanosis of the fingers and toes, most likely secondarily appropriate doses is decreased, his pressor management is by the pulmonary critical care unit. And removal of the recommendation. pt is on ceftriaxone and clindamycin. His WBC is 18.5 K. PH 7.2. Creatinine went up to 7.23. Calcium 5.5. Nephrology team are planning for dialysis. An Tamiflu. Patient has been followed by several consultants including pulmonary, cardiology, nephrology, infectious disease. Discussed with her today and her questions were answered to her satisfaction. 02/21/2019 Patient remains intubated to the ICU. And he still needsr norepinephrine at 0.05 currently. Patient has worsening pneumothorax that mandated a second chest tube but now is improving. She'll continue with tube feeding which was a started. His sugar is high side 200-240, increase Levemir doses. Hematemesis stable. Still needs hemodialysis. 02/22/2019 pt is still aneuric, pt undergone hemodialysis, , about 2 Liter were withdrawn , pt needing less levophed ., pt has better pulsation of lower extremity. pt is started feeding , on anit-emetic . no fever in the last 48 hours . still on ceftriaxone, clindamycin , glucose is controlled. still in critical condition. review of systems: N/a Objective - Vital Signs Vital signs: Vital Signs Temp 98.4 F 02/22/19 16:00 Pulse 94 02/22/19 19:22 Resp 41 H 02/22/19 19:22 BP 114/60 02/22/19 19:00 Pulse Ox 94 L 02/22/19 19:00 Intake & Output 02/22/19 02/22/19 02/23/19 06:59 18:59 06:59 Intake Total 1118.081 887.619 85.184 Output Total 472 2004 Balance 646.081 -1116.381 85.184 Weight 114.3 kg Intake: IV 580 346 70 Clindamycin 900 mg In 50 100 50 Dextrose 5% in Water 50 ml @ 50 mls/hr IVPB Q8HR NI Rx#:[id number] Dextrose 5% in Water 1, 200 000 ml @ 50 mls/hr IV . Q23H NI with Sodium Bicarb (1 Meq/ml) 150 ml Rx#:[id number] Sodium Chloride 0.9% 1, 220 240 20 000 ml @ 20 mls/hr IV . Q24H NI Rx#:[id number] cefTRIAXone 2 gm In 50 Sodium Chloride 0.9% 50 ml @ 100 mls/hr IVPB Q24H [facility] Rx#:[id number] pressure bags 60 6 Intake, IV Titration 488.081 501.619 15.184 Amount Calcium Gluconate 2 gm In 100 Sodium Chloride 0.9% 100 ml @ 100 mls/hr IVPB ONCE ONE Rx#:[id number] Norepinephrine 32 mg In 34.193 9.722 15.184 Sodium Chloride 0.9% 218 ml @ 0.05 MCG/KG/MIN 2. 233 mls/hr IV .Q24H NI Rx#:[id number] Propofol 1,000 mg In 453.888 391.897 Empty Bag 1 bag @ Titrate IV .Q0M [facility] Rx#: [id number] Tube Feeding 20 10 Other 30 30 Output: Chest Tube Drainage 109 Chest Tube Left 100 Chest Tube Left Lateral 9 Chest Gastric Drainage 350 Urine 13 4 Other 2000 Other: Voiding Method Indwelling Catheter Indwelling Catheter ABP, PAP, CO, CI - Last Documented Arterial Blood Pressure 109/56 - Exam -GENERAL: The patient is intubated and sedated HEENT: Pupils are round and equally reacting to light. EOMI. No scleral icterus. No conjunctival pallor. Normocephalic, atraumatic. No pharyngeal erythema. No thyromegaly. CARDIOVASCULAR: S1 and S2 present. No murmurs, rubs, or gallops. -PULMONARY: Chest is bilateral harsh breath sounds, with scattered wheezing ABDOMEN: Soft, nontender, nondistended, normoactive bowel sounds. No palpable organomegaly. MUSCULOSKELETAL: No joint swelling or deformity. EXTREMITIES: No cyanosis, clubbing, or pedal edema. -NEUROLOGICAL:patient is sedated and intubated Gross neurological examination did not reveal any focal deficits. SKIN: No rashes. - Labs CBC & Chem 7: 02/22/19 05:48 02/22/19 05:48 Labs: Abnormal Lab Results - Last 24 Hours (Table) 02/21/19 02/22/19 02/22/19 Range/Units 23:37 05:10 05:48 WBC 22.9 H (3.8-10.6) k/uL RBC 3.71 L (4.30-5.90) m/uL Hgb 12.7 L (13.0-17.5) gm/dL Hct 36.3 L (39.0-53.0) % Plt Count 42 L D (150-450) k/uL ABG pH 7.34 L (7.35-7.45) ABG pCO2 53 H (35-45) mmHg ABG pO2 180 H (83-108) mmHg ABG HCO3 28 H (21-25) mmol/L ABG Total CO2 30 H (19-24) mmol/L ABG O2 Saturation 98.9 H (94-97) % Sodium (137-145) mmol/L Potassium (3.5-5.1) mmol/L Chloride (98-107) mmol/L BUN (9-20) mg/dL Creatinine (0.66-1.25) mg/dL Glucose (74-99) mg/dL POC Glucose (mg/dL) 136 H (75-99) mg/dL Calcium (8.4-10.2) mg/dL Phosphorus (2.5-4.5) mg/dL Magnesium (1.6-2.3) mg/dL 02/22/19 02/22/19 02/22/19 Range/Units 05:48 06:02 12:41 WBC (3.8-10.6) k/uL RBC (4.30-5.90) m/uL Hgb (13.0-17.5) gm/dL Hct (39.0-53.0) % Plt Count (150-450) k/uL ABG pH (7.35-7.45) ABG pCO2 (35-45) mmHg ABG pO2 (83-108) mmHg ABG HCO3 (21-25) mmol/L ABG Total CO2 (19-24) mmol/L ABG O2 Saturation (94-97) % Sodium 134 L (137-145) mmol/L Potassium 5.5 H (3.5-5.1) mmol/L Chloride 96 L (98-107) mmol/L BUN 78 H (9-20) mg/dL Creatinine 5.97 H (0.66-1.25) mg/dL Glucose 165 H (74-99) mg/dL POC Glucose (mg/dL) 167 H 154 H (75-99) mg/dL Calcium 6.2 L* (8.4-10.2) mg/dL Phosphorus 8.2 H (2.5-4.5) mg/dL Magnesium 2.4 H (1.6-2.3) mg/dL 02/22/19 Range/Units 18:44 WBC (3.8-10.6) k/uL RBC (4.30-5.90) m/uL Hgb (13.0-17.5) gm/dL Hct (39.0-53.0) % Plt Count (150-450) k/uL ABG pH (7.35-7.45) ABG pCO2 (35-45) mmHg ABG pO2 (83-108) mmHg ABG HCO3 (21-25) mmol/L ABG Total CO2 (19-24) mmol/L ABG O2 Saturation (94-97) % Sodium (137-145) mmol/L Potassium (3.5-5.1) mmol/L Chloride (98-107) mmol/L BUN (9-20) mg/dL Creatinine (0.66-1.25) mg/dL Glucose (74-99) mg/dL POC Glucose (mg/dL) 106 H (75-99) mg/dL Calcium (8.4-10.2) mg/dL Phosphorus (2.5-4.5) mg/dL Magnesium (1.6-2.3) mg/dL Microbiology - Last 24 Hours (Table) 02/18/19 11:45 Gram Stain - Final Pleural Fluid Body Fluid Culture - Final 02/16/19 19:00 Blood Culture - Preliminary Blood No Growth after 120 hours Assessment and Plan Assessment: Acute respiratory failure status post intubation Septic shock secondary to influenza infection and pneumonia Left-sided pneumothorax, need chest tube stress induced hematemesis, evaluated by GI team Acute renal failure with oliguria Lactic acidosis Elevated troponin, evaluated by grill attendant Plan: This is a 63 years old female who presents because of septic shock, secondary to pneumonia and influenza infection, renal failure, elevated troponin. lactic acid Pulmonary/critical care unit, grill attendant and well logging captain, shade matcher, cardiothoracic surgeon R following the patient. Patient to continue on antibiotics. Continue with aspirin. Patient is on steroids and IV fluids.. Mold Mechanic recommended beta janice and echocardiogram.Labs and medication were reviewed.. Continue same treatment. Continue with symptomatic treatment. Resume home medication. Monitor lytes and vitals. DVT and GI prophylaxis. F urther recommendations of the clinical course of the patient DVT prophylaxis: Subcutaneous Lovenox. Hemoglobin stable and patient is high- risk for thrombosis. Keep monitoring GI Prophylaxis: Protonix Prognosis is guarded
[2019-02-22] MEDS: INSULIN DETEMIR (LEVEMIR) 100 UNIT/ML SYR SQ SCH (20:32)
--- NOTE | 2019-02-22 22:33 | P.PN ---
Subjective Progress Note Date: 02/22/19 63-year-old male who has a history of tobacco use, coronary artery disease and congestive heart failure with the family relates is medically disabled because of his cardiac disease. He was ill earlier this week when he went to the walk-in clinic on Wednesday at that point in time was found to have evidence of fever and chest congestion. Influenza testing was positive for influenza a the patient was started on Tamiflu. The patient however then developed progressive decline of his status and on the presented to the emergency center. At that point in time he was profoundly ill with hypoxia, acidosis, and renal failure. He simply was admitted for intensive care unit he was intubated and has been sedated and mechanically ventilated. He is without significant hypotension is required multiple vasopressor agents that include Levophed and vasopressin, and has been treated with stress doses of steroids. The patient had worsening of his status and with his worsening pneumonia and refractory sepsis the infectious diseases consultation was requested. The patient's family is present. Relates that he has been with a declining medical status for some time but became acutely ill recently. None of the other family members are ill at this time. As noted the patient is intubated, sedated and mechanically ventilated and paralyzed further information from the family. The patient's status did worsen with a spontaneous pneumothorax which resulted in placement of two thoaravent devices which did not resolve the pneumothorax and constantly a chest tube was applied which has resolved most of the pneumothorax. As noted despite this remains hemodynamically unstable. 02/19/2019 the patient has had fever overnight. 102.1 recently. Intravenously acetaminophen has been given. With the change in the patient's PEEP to 16 there has now been a marked improvement of his oxygenation. He is on lower doses of vasopressor but remains with his acute renal failure and he is anicteric. As noted his sputum is evidence of Streptococcus pyogenes superimposed on influenza A. The case has been discussed with pulmonary critical care as well as nephrology. 02/20/2019 patient had difficulties with his chest tube and a new chest tube was then placed with marked improvement of his respiratory status. There has been a reduction in the amount of vasopressor therapy. Status post chest tube placement oxygenation is considerably improved. Fever has improved. No new positive cultures. Thrombocytopenia has worsened. Renal replacement therapy has been started 02/22/2019 Taty is in intensive care unit, intubated sedated and mechanically ventilated on vasopressor therapy. Leukocytosis persists in the thrombocytopenia has slightly improved. Vasopressor therapy is stable and there is been reduction in the amount of PEEP. Tolerated renal replacement therapy again Objective - Vital Signs Vital signs: Vital Signs Temp 98.1 F 02/22/19 20:00 Pulse 90 02/22/19 22:00 Resp 40 H 02/22/19 22:00 BP 99/56 02/22/19 22:00 Pulse Ox 94 L 02/22/19 22:00 Intake & Output 02/22/19 02/22/19 02/23/19 06:59 18:59 06:59 Intake Total 1118.081 887.619 354.220 Output Total 472 2004 0 Balance 646.081 -1116.381 354.220 Weight 114.3 kg Intake: IV 580 346 198 Clindamycin 900 mg In 50 100 50 Dextrose 5% in Water 50 ml @ 50 mls/hr IVPB Q8HR [facility] Rx#:[id number] Dextrose 5% in Water 1, 200 000 ml @ 50 mls/hr IV . Q23H NI with Sodium Bicarb (1 Meq/ml) 150 ml Rx#:[id number] Sodium Chloride 0.9% 1, 220 240 80 000 ml @ 20 mls/hr IV . Q24H [facility] Rx#:[id number] cefTRIAXone 2 gm In 50 50 Sodium Chloride 0.9% 50 ml @ 100 mls/hr IVPB Q24H [facility] Rx#:[id number] pressure bags 60 6 18 Intake, IV Titration 488.081 501.619 96.220 Amount Calcium Gluconate 2 gm In 100 Sodium Chloride 0.9% 100 ml @ 100 mls/hr IVPB ONCE ONE Rx#:[id number] Norepinephrine 32 mg In 34.193 9.722 20.096 Sodium Chloride 0.9% 218 ml @ 0.05 MCG/KG/MIN 2. 233 mls/hr IV .Q24H [facility] Rx#:[id number] Propofol 1,000 mg In 453.888 391.897 76.124 Empty Bag 1 bag @ Titrate IV .Q0M [facility] Rx#: [id number] Tube Feeding 20 10 30 Other 30 30 30 Output: Chest Tube Drainage 109 Chest Tube Left 100 Chest Tube Left Lateral 9 Chest Gastric Drainage 350 Urine 13 4 0 Other 2000 Other: Voiding Method Indwelling Catheter Indwelling Catheter Indwelling Catheter ABP, PAP, CO, CI - Last Documented Arterial Blood Pressure 104/53 - Exam 63-year-old male HEENT: Anicteric conjunctiva are pale but moist nasal mucosa grossly intact without significant lesions, there is no thrush noted around the endotracheal tube. No evidence of bleeding Neck: The neck is supple without significant lymphadenopathy or thyromegaly. Lungs: There is symmetrical air entry however very coarse bronchial sounds are heard in all lung garsia and still amphoric sounds in the anterior aspect of the left chest where the Heart: Tachycardic no murmur is noted there is palpable subcutaneous emphysema along the anterior aspect of the shoulder and upper aspect of the chest above the clavicle Abdomen: Abdomen has few bowel sounds, it is soft minimally distended and can palpate no mass or organomegaly Extremities: The extremities have some generalized edema, hands and feet are cool to touch mild bluish discoloration is noted,but no necrosis or ulcerations are seen Neuro: Sedated paralyzed mechanically ventilated - Labs CBC & Chem 7: 02/22/19 05:48 02/22/19 05:48 Labs: Abnormal Lab Results - Last 24 Hours (Table) 02/21/19 02/22/19 02/22/19 Range/Units 23:37 05:10 05:48 WBC 22.9 H (3.8-10.6) k/uL RBC 3.71 L (4.30-5.90) m/uL Hgb 12.7 L (13.0-17.5) gm/dL Hct 36.3 L (39.0-53.0) % Plt Count 42 L D (150-450) k/uL ABG pH 7.34 L (7.35-7.45) ABG pCO2 53 H (35-45) mmHg ABG pO2 180 H (83-108) mmHg ABG HCO3 28 H (21-25) mmol/L ABG Total CO2 30 H (19-24) mmol/L ABG O2 Saturation 98.9 H (94-97) % Sodium (137-145) mmol/L Potassium (3.5-5.1) mmol/L Chloride (98-107) mmol/L BUN (9-20) mg/dL Creatinine (0.66-1.25) mg/dL Glucose (74-99) mg/dL POC Glucose (mg/dL) 136 H (75-99) mg/dL Calcium (8.4-10.2) mg/dL Phosphorus (2.5-4.5) mg/dL Magnesium (1.6-2.3) mg/dL 02/22/19 02/22/19 02/22/19 Range/Units 05:48 06:02 12:41 WBC (3.8-10.6) k/uL RBC (4.30-5.90) m/uL Hgb (13.0-17.5) gm/dL Hct (39.0-53.0) % Plt Count (150-450) k/uL ABG pH (7.35-7.45) ABG pCO2 (35-45) mmHg ABG pO2 (83-108) mmHg ABG HCO3 (21-25) mmol/L ABG Total CO2 (19-24) mmol/L ABG O2 Saturation (94-97) % Sodium 134 L (137-145) mmol/L Potassium 5.5 H (3.5-5.1) mmol/L Chloride 96 L (98-107) mmol/L BUN 78 H (9-20) mg/dL Creatinine 5.97 H (0.66-1.25) mg/dL Glucose 165 H (74-99) mg/dL POC Glucose (mg/dL) 167 H 154 H (75-99) mg/dL Calcium 6.2 L* (8.4-10.2) mg/dL Phosphorus 8.2 H (2.5-4.5) mg/dL Magnesium 2.4 H (1.6-2.3) mg/dL 02/22/19 Range/Units 18:44 WBC (3.8-10.6) k/uL RBC (4.30-5.90) m/uL Hgb (13.0-17.5) gm/dL Hct (39.0-53.0) % Plt Count (150-450) k/uL ABG pH (7.35-7.45) ABG pCO2 (35-45) mmHg ABG pO2 (83-108) mmHg ABG HCO3 (21-25) mmol/L ABG Total CO2 (19-24) mmol/L ABG O2 Saturation (94-97) % Sodium (137-145) mmol/L Potassium (3.5-5.1) mmol/L Chloride (98-107) mmol/L BUN (9-20) mg/dL Creatinine (0.66-1.25) mg/dL Glucose (74-99) mg/dL POC Glucose (mg/dL) 106 H (75-99) mg/dL Calcium (8.4-10.2) mg/dL Phosphorus (2.5-4.5) mg/dL Magnesium (1.6-2.3) mg/dL Microbiology - Last 24 Hours (Table) 02/16/19 19:00 Blood Culture - Final Blood No Growth after 144 hours 02/18/19 11:45 Gram Stain - Final Pleural Fluid Body Fluid Culture - Final Laboratory Results WBC 22.9 k/uL (3.8-10.6) H 02/22/19 05:48 RBC 3.71 m/uL (4.30-5.90) L 02/22/19 05:48 Hgb 12.7 gm/dL (13.0-17.5) L 02/22/19 05:48 Hct 36.3 % (39.0-53.0) L 02/22/19 05:48 MCV 97.9 fL (80.0-100.0) 02/22/19 05:48 MCH 34.3 pg (25.0-35.0) 02/22/19 05:48 MCHC 35.0 g/dL (31.0-37.0) 02/22/19 05:48 RDW 14.8 % (11.5-15.5) 02/22/19 05:48 Plt Count 42 k/uL (150-450) L D 02/22/19 05:48 Neutrophils % (Manual) 83 % 02/19/19 05:40 Band Neutrophils % 5 % 02/19/19 05:40 Lymphocytes % (Manual) 9 % 02/19/19 05:40 Monocytes % (Manual) 2 % 02/19/19 05:40 Metamyelocytes % 1 % 02/19/19 05:40 Myelocytes % 4 % 02/16/19 19:00 Neutrophils # (Manual) 12.60 k/uL (1.3-7.7) H 02/19/19 05:40 Lymphocytes # (Manual) 1.30 k/uL (1.0-4.8) 02/19/19 05:40 Monocytes # (Manual) 0.29 k/uL (0-1.0) 02/19/19 05:40 Metamyelocytes # (Man) 0.14 k/uL (0) H 02/19/19 05:40 Myelocytes # (Manual) 0.53 k/uL (0) H 02/16/19 19:00 Nucleated RBCs 0 /100 WBC (0-0) 02/19/19 05:40 Manual Slide Review Performed 02/19/19 05:40 Toxic Granulation Present 02/17/19 04:20 Toxic Vacuolation Present 02/18/19 04:15 Large Platelets Present 02/16/19 19:00 Macrocytosis Slight 02/16/19 19:00 PT 10.9 sec (9.0-12.0) 02/16/19 19:00 INR 1.0 (<1.2) 02/16/19 19:00 APTT 30.0 sec (22.0-30.0) 02/16/19 19:00 Sample Site Left Radial 02/22/19 05:10 ABG pH 7.34 (7.35-7.45) L 02/22/19 05:10 ABG pCO2 53 mmHg (35-45) H 02/22/19 05:10 ABG pO2 180 mmHg (83-108) H 02/22/19 05:10 ABG HCO3 28 mmol/L (21-25) H 02/22/19 05:10 ABG Total CO2 30 mmol/L (19-24) H 02/22/19 05:10 ABG O2 Saturation 98.9 % (94-97) H 02/22/19 05:10 ABG Base Excess 2.7 mmol/L 02/22/19 05:10 Lyndon Test Yes 02/22/19 05:10 FiO2 60 % 02/22/19 05:10 Sodium 134 mmol/L (137-145) L 02/22/19 05:48 Potassium 5.5 mmol/L (3.5-5.1) H 02/22/19 05:48 Chloride 96 mmol/L (98-107) L 02/22/19 05:48 Carbon Dioxide 23 mmol/L (22-30) 02/22/19 05:48 Anion Gap 15 mmol/L 02/22/19 05:48 BUN 78 mg/dL (9-20) H 02/22/19 05:48 Creatinine 5.97 mg/dL (0.66-1.25) H 02/22/19 05:48 Est GFR (CKD-EPI)AfAm 11 (>60 ml/min/1.73 sqM) 02/22/19 05:48 Est GFR (CKD-EPI)NonAf 9 (>60 ml/min/1.73 sqM) 02/22/19 05:48 Glucose 165 mg/dL (74-99) H 02/22/19 05:48 POC Glucose (mg/dL) 106 mg/dL (75-99) H 02/22/19 18:44 POC Glu Fire Technician ID Yann Alves 02/22/19 18:44 Lactic Ac Sepsis Rflx Y 02/17/19 22:57 Plasma Lactic Acid Tra 7.6 mmol/L (0.7-2.0) H* 02/18/19 04:15 Calcium 6.2 mg/dL (8.4-10.2) L* 02/22/19 05:48 Ionized Calcium Ann 3.1 mg/dL (4.5-5.3) L* 02/20/19 04:35 Phosphorus 8.2 mg/dL (2.5-4.5) H 02/22/19 05:48 Magnesium 2.4 mg/dL (1.6-2.3) H 02/22/19 05:48 Total Bilirubin 3.5 mg/dL (0.2-1.3) H 02/16/19 19:00 AST 51 U/L (17-59) 02/16/19 19:00 ALT 29 U/L (21-72) 02/16/19 19:00 Alkaline Phosphatase 103 U/L (38-126) 02/16/19 19:00 Troponin I 4.250 ng/mL (0.000-0.034) H* 02/18/19 04:15 NT-Pro-B Natriuret Pep 4770 pg/mL 02/16/19 19:00 Total Protein 7.0 g/dL (6.3-8.2) 02/16/19 19:00 Albumin 3.8 g/dL (3.5-5.0) 02/16/19 19:00 Vitamin D 25-Hydroxy 10.9 ng/mL (30.0-100.0) L 02/20/19 04:20 Urine Color Dark Brown 02/19/19 06:10 Urine Appearance Cloudy (Clear) 02/19/19 06:10 Urine pH 5.0 (5.0-8.0) 02/19/19 06:10 Ur Specific Hudson 1.019 (1.001-1.035) 02/19/19 06:10 Urine Protein 1+ (Negative) H 02/19/19 06:10 Urine Glucose (UA) 1+ (Negative) H 02/19/19 06:10 Urine Ketones 1+ (Negative) H 02/19/19 06:10 Urine Blood Moderate (Negative) H 02/19/19 06:10 Urine Nitrite Negative (Negative) 02/19/19 06:10 Urine Bilirubin Negative (Negative) 02/19/19 06:10 Urine Urobilinogen <2.0 mg/dL (<2.0) 02/19/19 06:10 Ur Leukocyte Esterase Trace (Negative) H 02/19/19 06:10 Urine RBC 1 /hpf (0-5) 02/19/19 06:10 Urine WBC 1 /hpf (0-5) 02/19/19 06:10 Random Vancomycin 19.3 ug/mL 02/20/19 04:35 Heparin-Ind Plt Ab Scrn 0.169 OD (<0.4) 02/20/19 04:35 Hep Bs Antigen Non-Reactive (Non-Reactive) 02/19/19 05:40 Hep Bs Antibody Non-Reactive (Non-Reactive) 02/19/19 05:40 Hep Bs Antibody, Quant 3.5 mIU/mL 02/19/19 05:40 Hep B Core Total Ab Non-Reactive (Non-Reactive) 02/19/19 05:40 Microbiology 02/16/19 19:00 Blood Blood Culture - Final No Growth after 144 hours 02/18/19 11:45 Pleural Fluid Gram Stain - Final 02/18/19 11:45 Pleural Fluid Body Fluid Culture - Final 02/17/19 12:54 Sputum Gram Stain - Final 02/17/19 12:54 Sputum Sputum Culture - Final Strep pyogenes (grp a) 02/17/19 10:00 Urine,Catheterized Urine Culture - Final Assessment and Plan (1) Influenza A Current Visit: Yes Status: Acute Code(s): J10.1 - FLU DUE TO OTH IDENT INFLUENZA VIRUS W OTH RESP MANIFEST SNOMED Code(s): 322770675 (2) Pneumonia and influenza Narrative/Plan: 63-year-old male who is a history of underlying cardiovascular disease and has been medically disabled presents to Hospital with a relatively short history of influenza A. The patient has the rapid onset of progressive shortness of breath and has now developed respiratory failure, acute lung injury with acute renal failure. Pulmonary critical care is having difficulties of adequate oxygenation and the patient has poor urinary output. His and seen by nephrology and they're contemplating Sled therapy if his hypotension can be further managed. Influenza A is associated with aggressive pneumonia staph aureus and Streptococcus pyogenes given associated with severe necrotizing pneumonia directly links to the influenza infection. We'll continue the active treatment of the influenza with the Tamiflu. Antibiotic therapy with vancomycin and Levaquin has been utilized pending further data. Of note if the patient has been seen the laboratory relates that showed Streptococcus pyogenes has been isolated in the respiratory secretions. Concern this is a super antigen type strain and constantly antibiotic therapy is altered to ceftriaxone ( with penicillin ALLERGY) and clindamycin was added to attempt to reduce toxin production. Overall prognosis is very poor. 02/19/2019 the patient has now had some measurable improvement. When the PEEP was increased to 16 the patient started fractionate much better and is now had further improvement of several of his parameters including improved hypotension. However has acute renal failure and the case has been discussed with medical care and nephrology. IV access for dialysis is to be placed and hopefully will be over start dialysis soon. As patient is more hemodynamically stable. The antimicrobial therapy with Rocephin and clindamycin are being utilizes point in time. Patient likely has a super antigen strain of strep resulting in the current profound level of illness. 02/20/2019 patient remains profoundly ill with multisystem organ failure however with the new chest tube there is been some improvement of his respiratory status. He is receiving renal replacement therapy and remains on vasopressor therapy. The pneumonia from influenza and super infection with Streptococcus pyogenses is occurring and is on antiviral and antibiotic therapy. For now supportive care is continuing prognosis remains very poor 02/22/2019 patient's status remains intubated, sedated chemically ventilated and vasopressor therapy. Leukocytosis is stable and from a combination of the significant influenza, necrotizing Streptococcus pyogenes pneumonia and hydr ocortisone therapy. The thrombocytopenia has improved from 24-42, likely relating to some improvemen t of his sepsis with renal replacement therapy the regimen is down to 5.97, and related that it was well-tolerated today. Antibiotic therapy continues with high-dose Rocephin and clindamycin for the i solated pathogens. Tamiflu continues given the profound respiratory failure originally from influenza A. Current Visit: Yes Status: Acute Code(s): J11.00 - FLU DUE TO UNIDENTIFIED FLU VIRUS W UNSP TYPE OF PNEUMONIA SNOMED Code(s): 851236571 (3) Acute renal failure Current Visit: Yes Status: Acute Code(s): N17.9 - ACUTE KIDNEY FAILURE, UNSPECIFIED SNOMED Code(s): 51550435
[2019-02-22] MEDS: OSELTAMIVIR 60 MG/10 ML ORAL SYRINGE PO SCH (23:10)
[2019-02-23] MEDS: PROPOFOL 1,000 MG in EMPTY BAG 1 BAG IV SCH ×9 (00:12→22:45)
[2019-02-23 00:18] LABS: Glucose,Whole Blood 112 mg/dL (75-99)
[2019-02-23] MEDS: INSULIN ASPART (NovoLOG) 100 UNIT/ML VIAL SQ SCH ×4 (00:21→18:15)
[2019-02-23] MEDS: HYDROmorphone 1 MG/ML 1 ML SYRINGE IVP PRN ×2 (00:51→02:41)
[2019-02-23] MEDS: IPRATROPIUM-ALBUTEROL 3 ML NEB INHALATION SCH ×6 (03:23→23:26)
[2019-02-23] MEDS: HYDROCORTISONE SUCCINATE 100 MG/2 ML VIAL IV SCH ×3 (03:52→21:21)
[2019-02-23] MEDS: ARTIFICIAL TEARS-HYPROMELLOSE DROPS 15 ML BTL BOTH EYES SCH ×6 (03:53→23:53)
[2019-02-23 04:52] LABS: ABG Base Excess -0.8 mmol/L; ABG HCO3 25 mmol/L (21-25); ABG PCO2 43 mmHg (35-45); ABG PH 7.36 (7.35-7.45); ABG PO2 170 mmHg (83-108); ABG TCO2 26 mmol/L (19-24)
[2019-02-23] MEDS: METOCLOPRAMIDE 5 MG/ML 2 ML VIAL IVP SCH ×4 (05:06→23:48)
[2019-02-23 05:38] LABS: Mean Platelet Volume 10.3; RBC 3.34 m/uL (4.30-5.90); RDW 15.1 % (11.5-15.5); WBC 26.8 k/uL (3.8-10.6)
[2019-02-23 05:42] LABS: HGB 10.8 gm/dL (13.0-17.5); MCH 32.2 pg (25.0-35.0); Platelet Count 75 k/uL (150-450)
[2019-02-23 05:43] LABS: MCHC 34.9 g/dL (31.0-37.0)
[2019-02-23 06:12] LABS: Glucose,Whole Blood 108 mg/dL (75-99)
[2019-02-23 06:26] LABS: Magnesium 2.3 mg/dL (1.6-2.3)
[2019-02-23 07:24] LABS: Calcium 5.2 mg/dL (8.4-10.2); Potassium 6.5 mmol/L (3.5-5.1)
[2019-02-23 07:25] LABS: Phosphorus 9.9 mg/dL (2.5-4.5)
[2019-02-23] MEDS ORDERED: INSULIN REGULAR 100 UNIT/ML VIAL IV ONE ×2 (07:42→23:45)
[2019-02-23] MEDS ORDERED: DEXTROSE 50%-WATER 50 ML SYRINGE IVP STA ×3 (07:44→23:23)
[2019-02-23] MEDS: CLINDAMYCIN 900 MG in DEXTROSE 5% IN WATER 50 ML IVPB SCH ×6 (07:51→23:49)
[2019-02-23] MEDS: CHLORHEXIDINE GLUCONATE 15 ML CUP MUCOUS MEM SCH ×2 (07:52→20:02)
[2019-02-23] MEDS: OSELTAMIVIR 60 MG/10 ML ORAL SYRINGE PO SCH ×2 (07:52→20:04)
[2019-02-23] MEDS: PANTOPRAZOLE 40 MG/10 ML VIAL IVP SCH ×2 (07:52→20:06)
[2019-02-23] MEDS: NICOTINE 21MG/24HR PATCH TRANSDERM SCH (07:53)
[2019-02-23] MEDS: CALCIUM CARBONATE 500 MG CHEWABLE PO SCH ×2 (07:53→20:02)
[2019-02-23] MEDS: ASPIRIN 81 MG PO SCH (07:53)
--- NOTE | 2019-02-23 08:04 | XR ---
EXAMINATION TYPE: XR chest 1V portable DATE OF EXAM: 02/23/2019 COMPARISON: Prior chest x-ray 02/22/2019 HISTORY: Intubated, chest tubes TECHNIQUE: Single frontal view of the chest is obtained. FINDINGS: Left-sided chest tubes, thoracic vent are again seen. No sizable pneumothorax or effusion. Endotracheal tube and NG tube are overlying appropriate positions, there is right jugular central ve nous catheter which is stable. There are overlying cardiac leads. Suspect some improvement in aeratio n as compared to prior exam. Heart size is stable. IMPRESSION: Improved aeration.
[2019-02-23] MEDS ORDERED: ACETAMINOPHEN IV (For NPO) 1,000 MG in EMPTY BAG 1 BAG IVPB ONE (09:44)
--- NOTE | 2019-02-23 10:21 | PN ---
PROGRESS NOTE DATE OF SERVICE: February 23, 2019 A 63-year-old male admitted back on the 16 of February. He was admitted with a diagnosis of acute respiratory failure with hypoxemia secondary to influenza and Streptococcus pyogenes pneumonia. He rapidly developed acute lung injury with acute respiratory distress syndrome. He required intubation and mechanical ventilation and also sustained a left-sided pneumothorax requiring drainage with Thora-Vent x2 and chest tube insertion. Subsequent to that, he developed a tension pneumothorax a couple days back and required a second chest tube on the left. The nonfunctional chest tube today is removed. The patient is still on mechanical ventilator. His oxygenation continues to improve. His chest x-ray is stable. He remains on the volume assist-control mode rate of 40, tidal volume 450, FiO2 50%, PEEP of 12, going to be dropped down to a PEEP of 8. His blood gases this morning show pO2 of 170, pCO2 of 43, and a pH of 7.36. He has received hemodialysis the last 4 days. His temperature this morning was 102.4. He is on saline at 20 mL an hour, propofol at 60 mcg/kg per minute, Levophed at 10 mcg/minute and Nepro is his tube feeds yet to be determined in terms of goal. Other than that, he had a pretty uneventful evening. The blood pressure is a bit concerning, but the Levophed dose is not too high. He was previously on Levophed only at 3 mcg/kg per minute yesterday. Blood gases are stable and the PEEP change was made. Chest x- ray was reviewed. Microbiology was reviewed and is thus far not showing any other organisms. Because of his increasing temperature, he will be re-cultured. Current vital signs are reviewed. Temperature is 102.3, heart rate 114, respiratory rate 40, blood pressure 110/58, mean 75. His CVP is 8 and saturations between 92% 95%. Appears in no acute distress. HEENT examination is unremarkable. There is no orally placed endotracheal tube and NG tube. NECK: Supple. Full range of motion. Cardiovascular examination reveals regular rhythm and rate. He is tachycardic. The tachycardia is regular. S1, S2 normal. No murmur. Lungs reveal some coarse rhonchi. Adventitious sounds are more prominent on the left side. Breath sounds are diminished on the left side. No wheezes or crackles. Abdomen is soft. Bowel sounds are noted. Extremities reveal some livedo reticularis, mottling and acrocyanosis. That is unchanged. Skin is otherwise unremarkable. Neurologic examination is difficult to assess given his level of sedation. Microbiology is unchanged. Labs are reviewed. White count 26.8, hemoglobin 10.8, hematocrit 31.0. Sodium 128, potassium 6.5, chloride 94, CO2 of 19, anion gap is 15. BUN and creatinine were 69 and 5. Calcium 5.2. Phosphorus 9.9. Medications are reviewed. Currently, his medications are appropriate. He is on Rocephin and clindamycin as antibiotics. The rest of the medications are appropriate. ASSESSMENT: 1. Acute hypoxemic respiratory failure requiring intubation and mechanical ventilation on February 17, 2019 with development of acute respiratory distress syndrome (ARDS), secondary to sepsis both influenza and Streptococcus pyogenes pneumonia. 2. Acute septic shock secondary to influenza complicated by Streptococcus pyogenes pneumonia. 3. Recurrent left-sided pneumothorax, status post Thora-Vent x2 and left-sided chest tube x2 with relief of tension pneumothorax 3 days ago. 4. Acute pneumonia secondary to Streptococcus pyogenes. 5. Acute sepsis/septic shock. 6. Multiorgan system failure (MOSF). 7. Acute kidney injury secondary to acute tubular necrosis requiring hemodialysis. 8. History of coronary artery disease with previous stent placement. 9. Profound metabolic acidosis secondary to both shock and renal failure. 10.Fluid overload. 11.Elevated troponins, likely reflecting supply/demand mismatch. PLAN: Overall the patient continues to show improvement. His oxygenation is better. Chest x- ray is stable. PEEP levels dropped from 12 to 8. We will keep the FiO2 of 50%. His pO2 was 170 today. The temperature will be treated aggressively with Tylenol, Motrin, and a cooling blanket. The patient will continue on the current medications including propofol, Levophed, and Nepro. He is receiving hemodialysis today. The nonfunctional chest tube was removed. Additional recommendations and suggestions are forthcoming. Prognosis is very guarded. I have continued to have daily and ongoing discussions with the . I have been very katherine with her. She understands the gravity of the situation. CRITICAL CARE TIME: 37 minutes. MMNELSONL / LELIAN: [id number] /
[2019-02-23] MEDS: SODIUM CHLORIDE 0.9% 1,000 ML IV SCH (12:31)
[2019-02-23 12:46] LABS: Glucose,Whole Blood 93 mg/dL (75-99)
--- NOTE | 2019-02-23 12:59 | P.PN ---
Subjective Progress Note Date: 02/23/19 Principal diagnosis: Spontaneous left sided pneumothorax, acute respiratory failure secondary to influenza A and streptococcus pyogenes pneumonia, acute kidney injury secondary to acute tubular necrosis due to hypotension and sepsis, mild troponin elevation. History of CAD with prior stenting, hypertension, hyperlipidemia, chronic tobacco abuse. Thrombocytopenia. POD #5 left chest thoravent placement x 2 and left thoracostomy tube placement POD #4 left femoral dialysis catheter placed by Dr. Barker POD #3 placement of second left thoracostomy tube for recurrent pneumothorax despite left thoracostomy tube in place The patient is currently laying in bed in the intensive care unit, still mechanically ventilated. Remains on low dose levo. Chest tubes remain in place. Remains in normal sinus rhythm. Sedated on propofol. Received dialysis 3 days in a row, receiving again today secondary to hyperkalemia. CXR this morning demonstrated better aeration with no pneumothorax. Objective - Vital Signs Vital signs: Vital Signs Temp 102.3 F H 02/23/19 08:00 Pulse 106 H 02/23/19 11:34 Resp 33 H 02/23/19 11:00 BP 110/58 02/23/19 10:00 Pulse Ox 95 02/23/19 11:00 Intake & Output 02/22/19 02/23/19 02/23/19 18:59 06:59 18:59 Intake Total 403.227 9411.119 440.163 Output Total 2004 206 0 Balance -1116.381 893.119 440.163 Weight 113.1 kg Intake: IV 346 456 154 Clindamycin 900 mg In 100 100 50 Dextrose 5% in Water 50 ml @ 50 mls/hr IVPB Q8HR [facility] Rx#:[id number] Sodium Chloride 0.9% 1, 240 240 80 000 ml @ 20 mls/hr IV . Q24H [facility] Rx#:[id number] cefTRIAXone 2 gm In 50 Sodium Chloride 0.9% 50 ml @ 100 mls/hr IVPB Q24H [facility] Rx#:[id number] pressure bags 6 66 24 Intake, IV Titration 501.619 433.119 211.163 Amount Calcium Gluconate 2 gm In 100 Sodium Chloride 0.9% 100 ml @ 100 mls/hr IVPB ONCE ONE Rx#:[id number] Norepinephrine 32 mg In 9.722 56.995 11.163 Sodium Chloride 0.9% 218 ml @ 0.05 MCG/KG/MIN 2. 233 mls/hr IV .Q24H [facility] Rx#:[id number] Propofol 1,000 mg In 391.897 376.124 200 Empty Bag 1 bag @ Titrate IV .Q0M [facility] Rx#: [id number] Tube Feeding 10 150 75 Other 30 60 Output: Chest Tube Drainage 200 Chest Tube Left 180 Chest Tube Left Lateral 20 Chest Urine 4 6 0 Other 2000 Other: Voiding Method Indwelling Catheter Indwelling Catheter Indwelling Catheter ABP, PAP, CO, CI - Last Documented Arterial Blood Pressure 108/53 - Constitutional General appearance: Present: no acute distress - Respiratory Details: Lung sounds diminished bilaterally with coarse breath sounds in the bases. Respirations even, non-labored on mechanical ventilation. Current ventilator settings assist control mode, FiO2 50%, TV 450, RR 40, PEEP 12. 8.0 ETT present, 23 at the lip. Left thoravent to continuous wall suction, no drainage, no air leak. Left anterior chest tube discontinued by pulmonary. Left posterior chest tube to continuous wall suction, 250 mL serosanguinous output in 24 hours, continuous air leak present. - Cardiovascular Details: S1/S2 present. Regular rate and rhythm, normal sinus rhythm on telemetry. Doppler peripheral pulses bilaterally. No edema present. SCDs present. Left radial arterial line, right internal jugular triple lumen central line present. - Gastrointestinal Gastrointestinal Comment(s): Abdomen soft, non-tender, slightly distended. Active bowel sounds present x 4 quadrants. OGT present, tube feeding infusing at 15 mL/hr. - Genitourinary Genitourinary Comment(s): Loo catheter present draining minimal urine. Left femoral temporary dialysis catheter present. - Integumentary Integumentary Comment(s): Skin is warm and intact. Bilateral lower extremities mottled with blue toes. - Psychiatric Psychiatric Comment(s): Currently sedated on mechanical ventilation with propofol. - Allied health notes Allied health notes reviewed: nursing - Labs CBC & Chem 7: 02/23/19 05:25 02/23/19 05:25 Labs: Abnormal Lab Results - Last 24 Hours (Table) 02/22/19 02/22/19 02/23/19 Range/Units 12:41 18:44 00:06 WBC (3.8-10.6) k/uL RBC (4.30-5.90) m/uL Hgb (13.0-17.5) gm/dL Hct (39.0-53.0) % Plt Count (150-450) k/uL ABG pO2 (83-108) mmHg ABG Total CO2 (19-24) mmol/L ABG O2 Saturation (94-97) % Sodium (137-145) mmol/L Potassium (3.5-5.1) mmol/L Chloride (98-107) mmol/L Carbon Dioxide (22-30) mmol/L BUN (9-20) mg/dL Creatinine (0.66-1.25) mg/dL POC Glucose (mg/dL) 154 H 106 H 112 H (75-99) mg/dL Calcium (8.4-10.2) mg/dL Phosphorus (2.5-4.5) mg/dL 02/23/19 02/23/19 02/23/19 Range/Units 04:47 05:25 05:25 WBC 26.8 H (3.8-10.6) k/uL RBC 3.34 L (4.30-5.90) m/uL Hgb 10.8 L (13.0-17.5) gm/dL Hct 31.0 L (39.0-53.0) % Plt Count 75 L D (150-450) k/uL ABG pO2 170 H (83-108) mmHg ABG Total CO2 26 H (19-24) mmol/L ABG O2 Saturation 98.0 H (94-97) % Sodium 128 L (137-145) mmol/L Potassium 6.5 H* (3.5-5.1) mmol/L Chloride 94 L (98-107) mmol/L Carbon Dioxide 19 L (22-30) mmol/L BUN 69 H (9-20) mg/dL Creatinine 5.00 H (0.66-1.25) mg/dL POC Glucose (mg/dL) (75-99) mg/dL Calcium 5.2 L* (8.4-10.2) mg/dL Phosphorus 9.9 H* (2.5-4.5) mg/dL 02/23/19 Range/Units 06:00 WBC (3.8-10.6) k/uL RBC (4.30-5.90) m/uL Hgb (13.0-17.5) gm/dL Hct (39.0-53.0) % Plt Count (150-450) k/uL ABG pO2 (83-108) mmHg ABG Total CO2 (19-24) mmol/L ABG O2 Saturation (94-97) % Sodium (137-145) mmol/L Potassium (3.5-5.1) mmol/L Chloride (98-107) mmol/L Carbon Dioxide (22-30) mmol/L BUN (9-20) mg/dL Creatinine (0.66-1.25) mg/dL POC Glucose (mg/dL) 108 H (75-99) mg/dL Calcium (8.4-10.2) mg/dL Phosphorus (2.5-4.5) mg/dL Microbiology - Last 24 Hours (Table) 02/16/19 19:00 Blood Culture - Final Blood No Growth after 144 hours 02/18/19 11:45 Gram Stain - Final Pleural Fluid Body Fluid Culture - Final - Imaging and Cardiology Chest x-ray: report reviewed, image reviewed Assessment and Plan Assessment: 1. Spontaneous left pneumothorax, status post thoravent and thoracostomy tube placement 2. Acute respiratory failure with influenza A and streptococcus pyrogenes pneumonia, ARDS 3. Acute kidney injury secondary to acute tubular necrosis, status post temporary dialysis placement with daily dialysis 4. Septic shock with lactic acidosis 5. Multisystem organ failure 6. Troponin elevation 7. History of CAD with prior stenting 8. History of hypertension, currently hypotensive on levo 9. Hyperlipidemia 10. Chronic tobacco dependance 11. Thrombocytopenia, HIT panel negative Plan: 1. Continue left pleural chest tube to continuous wall suction, will monitor for resolution of air leak 2. Will monitor daily labs, x-rays 3. Wean ventilator when able. Ventilator management per pulmonology 4. Bronchodilators, steroids per pulmonology 5. Antibiotics per infectious disease. 6. GI/DVT prophylaxis with protonix, SCDs. 7. Avoid nephrotoxic agents. Continue hemodiaysis per nephrology. Wean levo as able. 8. Medical management of other comorbid conditions per primary care service. 9. More recommendations as patient progresses. Time with Patient: Greater than 30
--- NOTE | 2019-02-23 15:32 | PN ---
PROGRESS NOTE Patient is seen for followup for acute kidney injury. We had about 2 L of ultrafiltration yesterday. Patient tolerated his procedure well. He was dialyzed again this morning with 2 L of ultrafiltration. Patient remains on the vent. FiO2 is at 50%. He has had a new fever of 102 degrees Fahrenheit early this morning. PHYSICAL EXAMINATION: When patient was seen this morning, temperature 102.3, blood pressure was 110/58, heart rate about 100 per minute. Examination of the heart, S1, S2. Examination of the lungs, bilateral breath sounds are heard. Chest tube is noted in the left side. Abdomen is soft, distended. Examination of the lower extremities shows improving edema. However, discoloration of the toes remains the same bilaterally. LABS: Show sodium 128, potassium 6.5, BUN 69, serum creatinine 5.0, calcium was 5.2, phosphorus 5.9. ASSESSMENT: 1. Acute kidney injury, hemodialysis dependent. No significant urine output. Continue with daily dialysis for now. 2. Volume overload, slowly improving. We had 2 L of ultrafiltration yesterday and another 2 L today. Will plan for about the same again tomorrow. 3. Hypervolemic, hyponatremia. Expect improvement with dialysis. 4. Hyperkalemia associated with acute kidney injury. Expect improvement with dialysis. 5. Influenza pneumonia and pneumonia with strep pyogenes in the sputum. 6. Peripheral vascular disease. 7. Acute hypoxic respiratory failure, currently on the vent. PLAN: Repeat hemodialysis in a.m. Continue with oral vitamin D and calcium supplements for hypocalcemia. MMODL / IJN: [id number] /
[2019-02-23] MEDS ORDERED: ACETAMINOPHEN IV (For NPO) 1,000 MG in EMPTY BAG 1 BAG IVPB PRN (16:16)
--- NOTE | 2019-02-23 16:18 | P.PN ---
Subjective This is a 63 years old female with past medical history of congestive heart failure, coronary artery disease status post cardiac catheterization and stent placement. Patient presents with severe dyspnea, area she's been diagnosed with influenza a at urgent care parenchyma to the hospital. In the emergency room patient was found to be significantly dyspneic and hypoxic, and her blood pressure was on the low side. Patient eventually was intubated and transferred to the intensive care unit. Patient could not provide information so I was madi en from the chart. She has had oliguria, with lactic acidosis, acute renal failure. Chest x-ray showing left upper lobe infiltrate, with interstitial edema. Patient also has new elevated troponin for which tank setter has been consulted 02/18/2019 Patient remains in the ICU,chest x-ray this morning showing increased and the patient left side pneumothorax,patient has left chest thoravent placed this morning. With anolother thoraventhas to be placed againand eventually chest tube has to be placed with improvement in the pneumothorax. Input and help from cardiothoracic and pulmonary/crtical care team is appreciated.patient still tachycardic and on mechanical ventilation. Patient is also acidotic, and high lactic acid at 7.6. Patient remains on pressors to support his blood pressure. GI consult is appreciated, reevaluated the patient for coffee-ground emesis from NG tube rate hemoglobin stable, and as per the recommendation no need for endoscopic evaluation or therapy.patient is on Protonix twice a day 02/19/2019 Patient remains in the ICU. He is intubated and sedated. Vent management with pulmonary critical care team following the case closely. Patient remains on norepinephrine drip to support his blood pressure. Patient also with cautery hemodialysis today. He has a fever of 102. Tylenol as provided as well as local measures . WBC is 14.4 K. Creatinine went up from 5.5 to 7.23. Sputum culture is growing strep pyogenes. Patient is on clindamycin and Tamiflu. 02/20/2019 pt remains in the ICU and he is still intubated and vent is been managed by the pulmonary/critical care unit. His repeat chest x-ray from today shows interval increase in size of the left side pneumothorax which measured approximately 25- 30%. Patient remains on chest tube and thoracic vent. And pulmonary team also the case. Patient today has cyanosis of the fingers and toes, most likely secondarily appropriate doses is decreased, his pressor management is by the pulmonary critical care unit. And removal of the recommendation. pt is on ceftriaxone and clindamycin. His WBC is 18.5 K. PH 7.2. Creatinine went up to 7.23. Calcium 5.5. Nephrology team are planning for dialysis. An Tamiflu. Patient has been followed by several consultants including pulmonary, cardiology, nephrology, infectious disease. Discussed with her today and her questions were answered to her satisfaction. 02/21/2019 Patient remains intubated to the ICU. And he still needsr norepinephrine at 0.05 currently. Patient has worsening pneumothorax that mandated a second chest tube but now is improving. She'll continue with tube feeding which was a started. His sugar is high side 200-240, increase Levemir doses. Hematemesis stable. Still needs hemodialysis. 02/22/2019 pt is still aneuric, pt undergone hemodialysis, , about 2 Liter were withdrawn , pt needing less levophed ., pt has better pulsation of lower extremity. pt is started feeding , on anit-emetic . no fever in the last 48 hours . still on ceftriaxone, clindamycin , glucose is controlled. still in critical condition. 02/23/2019 Patient went to hemodialysis today, 2 L have been taken off. His been clinically close to yesterday. However 1 chest tube has been taken off. History: Vent pain and his the ICU management basically by the critical care team. Distal and tube feeding but no bowel movement. Laxative has been provided by the pulmonary/critical care team. He is a little bit more on levo [place]. Patient remains in critical condition review of systems: N/a Objective - Vital Signs Vital signs: Vital Signs Temp 100.3 F H 02/23/19 12:00 Pulse 105 H 02/23/19 15:45 Resp 41 H 02/23/19 15:00 BP 110/58 02/23/19 14:00 Pulse Ox 93 L 02/23/19 15:00 Intake & Output 02/22/19 02/23/19 02/23/19 18:59 06:59 18:59 Intake Total 529.117 0284.119 884.401 Output Total 2003 Balance -1116.381 893.119 -1120.599 Weight 113.1 kg Intake: IV 346 456 284 Clindamycin 900 mg In 100 100 50 Dextrose 5% in Water 50 ml @ 50 mls/hr IVPB Q8HR [facility] Rx#:[id number] Sodium Chloride 0.9% 1, 240 240 180 000 ml @ 20 mls/hr IV . Q24H [facility] Rx#:[id number] cefTRIAXone 2 gm In 50 Sodium Chloride 0.9% 50 ml @ 100 mls/hr IVPB Q24H [facility] Rx#:[id number] pressure bags 6 66 54 Intake, IV Titration 501.619 433.119 435.401 Amount ACETAMINOPHEN IV (For NPO 100 ) 1,000 mg In Empty Bag 1 bag @ 400 mls/hr IVPB ONCE ONE Rx#:[id number] Calcium Gluconate 2 gm In 100 Sodium Chloride 0.9% 100 ml @ 100 mls/hr IVPB ONCE ONE Rx#:[id number] Norepinephrine 32 mg In 9.722 56.995 35.401 Sodium Chloride 0.9% 218 ml @ 0.05 MCG/KG/MIN 2. 233 mls/hr IV .Q24H [facility] Rx#:[id number] Propofol 1,000 mg In 391.897 376.124 300 Empty Bag 1 bag @ Titrate IV .Q0M [facility] Rx#: [id number] Tube Feeding 10 150 165 Other 30 60 Output: Chest Tube Drainage 200 Chest Tube Left 180 Chest Tube Left Lateral 20 Chest Urine 4 6 5 Other 1999 1999 Other: Voiding Method Indwelling Catheter Indwelling Catheter Indwelling Catheter ABP, PAP, CO, CI - Last Documented Arterial Blood Pressure 112/57 - Exam -GENERAL: The patient is intubated and sedated HEENT: Pupils are round and equally reacting to light. EOMI. No scleral icterus. No conjunctival pallor. Normocephalic, atraumatic. No pharyngeal erythema. No thyromegaly. CARDIOVASCULAR: S1 and S2 present. No murmurs, rubs, or gallops. -PULMONARY: Chest is bilateral harsh breath sounds, with scattered wheezing ABDOMEN: Soft, nontender, nondistended, normoactive bowel sounds. No palpable organomegaly. MUSCULOSKELETAL: No joint swelling or deformity. EXTREMITIES: No cyanosis, clubbing, or pedal edema. -NEUROLOGICAL:patient is sedated and intubated Gross neurological examination did not reveal any focal deficits. SKIN: No rashes. - Labs CBC & Chem 7: 02/23/19 05:25 02/23/19 05:25 Labs: Abnormal Lab Results - Last 24 Hours (Table) 02/22/19 02/23/19 02/23/19 Range/Units 18:44 00:06 04:47 WBC (3.8-10.6) k/uL RBC (4.30-5.90) m/uL Hgb (13.0-17.5) gm/dL Hct (39.0-53.0) % Plt Count (150-450) k/uL ABG pO2 170 H (83-108) mmHg ABG Total CO2 26 H (19-24) mmol/L ABG O2 Saturation 98.0 H (94-97) % Sodium (137-145) mmol/L Potassium (3.5-5.1) mmol/L Chloride (98-107) mmol/L Carbon Dioxide (22-30) mmol/L BUN (9-20) mg/dL Creatinine (0.66-1.25) mg/dL POC Glucose (mg/dL) 106 H 112 H (75-99) mg/dL Calcium (8.4-10.2) mg/dL Phosphorus (2.5-4.5) mg/dL 02/23/19 02/23/19 02/23/19 Range/Units 05:25 05:25 06:00 WBC 26.8 H (3.8-10.6) k/uL RBC 3.34 L (4.30-5.90) m/uL Hgb 10.8 L (13.0-17.5) gm/dL Hct 31.0 L (39.0-53.0) % Plt Count 75 L D (150-450) k/uL ABG pO2 (83-108) mmHg ABG Total CO2 (19-24) mmol/L ABG O2 Saturation (94-97) % Sodium 128 L (137-145) mmol/L Potassium 6.5 H* (3.5-5.1) mmol/L Chloride 94 L (98-107) mmol/L Carbon Dioxide 19 L (22-30) mmol/L BUN 69 H (9-20) mg/dL Creatinine 5.00 H (0.66-1.25) mg/dL POC Glucose (mg/dL) 108 H (75-99) mg/dL Calcium 5.2 L* (8.4-10.2) mg/dL Phosphorus 9.9 H* (2.5-4.5) mg/dL Microbiology - Last 24 Hours (Table) 02/16/19 19:00 Blood Culture - Final Blood No Growth after 144 hours Assessment and Plan Assessment: Acute respiratory failure status post intubation Septic shock secondary to influenza infection and pneumonia Left-sided pneumothorax, need chest tube stress induced hematemesis, evaluated by GI team Acute renal failure with oliguria Lactic acidosis Elevated troponin, evaluated by tank setter Plan: This is a 63 years old female who presents because of septic shock, secondary to pneumonia and influenza infection, renal failure, elevated troponin. lactic acid Pulmonary/critical care unit, tank setter and counter top assembler, priming powder premix blender, cardiothoracic surgeon R following the patient. Patient to continue on antibiotics. Continue with aspirin. Patient is on steroids and IV fluids.. Chore Tender recommended beta janice and echocardiogram.Labs and medication were reviewed.. Continue same treatment. Continue with symptomatic treatment. Resume home medication. Monitor lytes and vitals. DVT and GI prophylaxis. Further recommendations of the clinical course of the patient DVT prophylaxis: Subcutaneous Lovenox. Hemoglobin stable and patient is high- risk for thrombosis. Keep monitoring GI Prophylaxis: Protonix Prognosis is guarded
[2019-02-23] MEDS ORDERED: ACETAMINOPHEN TAB 500 MG TAB PO PRN (16:26)
[2019-02-23 18:25] LABS: Glucose,Whole Blood 108 mg/dL (75-99)
[2019-02-23] MEDS ORDERED: SODIUM BICARB 8.4% 50 ML SYR (1 MEQ/ML) IV STA (19:08)
[2019-02-23] MEDS ORDERED: INSULIN REGULAR 100 UNIT/ML VIAL IV STA (19:08)
[2019-02-23] MEDS ORDERED: IBUPROFEN 600 MG TAB PO PRN (19:43)
[2019-02-23] MEDS: IBUPROFEN 600 MG TAB PO PRN (20:02)
[2019-02-23] MEDS: LACTULOSE 20 GM/30 ML CUP PO SCH (20:05)
[2019-02-23] MEDS: ACETAMINOPHEN IV (For NPO) 1,000 MG in EMPTY BAG 1 BAG IVPB PRN (21:46)
[2019-02-23] MEDS: INSULIN DETEMIR (LEVEMIR) 100 UNIT/ML SYR SQ SCH (21:53)
[2019-02-23 22:02] LABS: Glucose,Whole Blood 119 mg/dL (75-99)
--- NOTE | 2019-02-23 22:05 | P.PN ---
Subjective Progress Note Date: 02/23/19 63-year-old male who has a history of tobacco use, coronary artery disease and congestive heart failure with the family relates is medically disabled because of his cardiac disease. He was ill earlier this week when he went to the walk-in clinic on Wednesday at that point in time was found to have evidence of fever and chest congestion. Influenza testing was positive for influenza a the patient was started on Tamiflu. The patient however then developed progressive decline of his status and on the presented to the emergency center. At that point in time he was profoundly ill with hypoxia, acidosis, and renal failure. He simply was admitted for intensive care unit he was intubated and has been sedated and mechanically ventilated. He is without significant hypotension is required multiple vasopressor agents that include Levophed and vasopressin, and has been treated with stress doses of steroids. The patient had worsening of his status and with his worsening pneumonia and refractory sepsis the infectious diseases consultation was requested. The patient's family is present. Relates that he has been with a declining medical status for some time but became acutely ill recently. None of the other family members are ill at this time. As noted the patient is intubated, sedated and mechanically ventilated and paralyzed further information from the family. The patient's status did worsen with a spontaneous pneumothorax which resulted in placement of two thoaravent devices which did not resolve the pneumothorax and constantly a chest tube was applied which has resolved most of the pneumothorax. As noted despite this remains hemodynamically unstable. 02/19/2019 the patient has had fever overnight. 102.1 recently. Intravenously acetaminophen has been given. With the change in the patient's PEEP to 16 there has now been a marked improvement of his oxygenation. He is on lower doses of vasopressor but remains with his acute renal failure and he is anicteric. As noted his sputum is evidence of Streptococcus pyogenes superimposed on influenza A. The case has been discussed with pulmonary critical care as well as nephrology. 02/20/2019 patient had difficulties with his chest tube and a new chest tube was then placed with marked improvement of his respiratory status. There has been a reduction in the amount of vasopressor therapy. Status post chest tube placement oxygenation is considerably improved. Fever has improved. No new positive cultures. Thrombocytopenia has worsened. Renal replacement therapy has been started 02/22/2019 patient remains in intensive care unit, intubated sedated and mechanically ventilated on vasopressor therapy. Leukocytosis persists in the thrombocytopenia has slightly improved. Vasopressor therapy is stable and there is been reduction in the amount of PEEP. Tolerated renal replacement therapy again 02/23/2019 receiving renal replacement therapy for the fifth time. Tolerating it well. Fevers have improved. Hypotension is improving. Objective - Vital Signs Vital signs: Vital Signs Temp 102.1 F H 02/23/19 21:38 Pulse 110 H 02/23/19 21:00 Resp 40 H 02/23/19 21:00 BP 110/58 02/23/19 21:00 Pulse Ox 95 02/23/19 21:00 Intake & Output 02/23/19 02/23/19 02/24/19 06:59 18:59 06:59 Intake Total 6060.477 8921.420 215.702 Output Total 206 2010 5 Balance 893.119 -723.580 210.702 Weight 113.1 kg Intake: IV 456 412 78 Clindamycin 900 mg In 100 100 Dextrose 5% in Water 50 ml @ 50 mls/hr IVPB Q8HR NI Rx#:[id number] Sodium Chloride 0.9% 1, 240 240 60 000 ml @ 20 mls/hr IV . Q24H NI Rx#:[id number] cefTRIAXone 2 gm In 50 Sodium Chloride 0.9% 50 ml @ 100 mls/hr IVPB Q24H NI Rx#:[id number] pressure bags 66 72 18 Intake, IV Titration 433.119 545.420 115.702 Amount ACETAMINOPHEN IV (For NPO 100 ) 1,000 mg In Empty Bag 1 bag @ 400 mls/hr IVPB ONCE ONE Rx#:[id number] Norepinephrine 32 mg In 56.995 45.420 15.702 Sodium Chloride 0.9% 218 ml @ 0.05 MCG/KG/MIN 2. 233 mls/hr IV .Q24H NI Rx#:[id number] Propofol 1,000 mg In 376.124 400 100 Empty Bag 1 bag @ Titrate IV .Q0M NI Rx#: [id number] Tube Feeding 150 239 22 Other 60 90 Output: Chest Tube Drainage 200 Chest Tube Left 180 Chest Tube Left Lateral 20 Chest Urine 6 10 5 Other 2000 Other: Voiding Method Indwelling Catheter Indwelling Catheter ABP, PAP, CO, CI - Last Documented Arterial Blood Pressure 95/51 - Exam 63-year-old male HEENT: Anicteric conjunctiva are pale but moist nasal mucosa grossly intact without significant lesions, there is no thrush noted around the endotracheal tube. No evidence of bleeding Neck: The neck is supple without significant lymphadenopathy or thyromegaly. Lungs: There is symmetrical air entry however very coarse bronchial sounds are heard in all lung garsia and still amphoric sounds in the anterior aspect of the left chest where the Heart: Tachycardic no murmur is noted there is palpable subcutaneous emphysema along the anterior aspect of the shoulder and upper aspect of the chest above the clavicle Abdomen: Abdomen has few bowel sounds, it is soft minimally distended and can palpate no mass or organomegaly Extremities: The extremities have some generalized edema, hands and feet are cool to touch mild bluish discoloration is noted,but no necrosis or ulcerations are seen Neuro: Sedated paralyzed mechanically ventilated - Labs CBC & Chem 7: 02/23/19 05:25 02/23/19 18:14 Labs: Abnormal Lab Results - Last 24 Hours (Table) 02/23/19 02/23/19 02/23/19 Range/Units 00:06 04:47 05:25 WBC 26.8 H (3.8-10.6) k/uL RBC 3.34 L (4.30-5.90) m/uL Hgb 10.8 L (13.0-17.5) gm/dL Hct 31.0 L (39.0-53.0) % Plt Count 75 L D (150-450) k/uL ABG pO2 170 H (83-108) mmHg ABG Total CO2 26 H (19-24) mmol/L ABG O2 Saturation 98.0 H (94-97) % Sodium (137-145) mmol/L Potassium (3.5-5.1) mmol/L Chloride (98-107) mmol/L Carbon Dioxide (22-30) mmol/L BUN (9-20) mg/dL Creatinine (0.66-1.25) mg/dL POC Glucose (mg/dL) 112 H (75-99) mg/dL Calcium (8.4-10.2) mg/dL Phosphorus (2.5-4.5) mg/dL 02/23/19 02/23/19 02/23/19 Range/Units 05:25 06:00 18:14 WBC (3.8-10.6) k/uL RBC (4.30-5.90) m/uL Hgb (13.0-17.5) gm/dL Hct (39.0-53.0) % Plt Count (150-450) k/uL ABG pO2 (83-108) mmHg ABG Total CO2 (19-24) mmol/L ABG O2 Saturation (94-97) % Sodium 128 L (137-145) mmol/L Potassium 6.5 H* 6.8 H* (3.5-5.1) mmol/L Chloride 94 L (98-107) mmol/L Carbon Dioxide 19 L (22-30) mmol/L BUN 69 H (9-20) mg/dL Creatinine 5.00 H (0.66-1.25) mg/dL POC Glucose (mg/dL) 108 H (75-99) mg/dL Calcium 5.2 L* (8.4-10.2) mg/dL Phosphorus 9.9 H* (2.5-4.5) mg/dL 02/23/19 Range/Units 18:14 WBC (3.8-10.6) k/uL RBC (4.30-5.90) m/uL Hgb (13.0-17.5) gm/dL Hct (39.0-53.0) % Plt Count (150-450) k/uL ABG pO2 (83-108) mmHg ABG Total CO2 (19-24) mmol/L ABG O2 Saturation (94-97) % Sodium (137-145) mmol/L Potassium (3.5-5.1) mmol/L Chloride (98-107) mmol/L Carbon Dioxide (22-30) mmol/L BUN (9-20) mg/dL Creatinine (0.66-1.25) mg/dL POC Glucose (mg/dL) 108 H (75-99) mg/dL Calcium (8.4-10.2) mg/dL Phosphorus (2.5-4.5) mg/dL Microbiology - Last 24 Hours (Table) 02/16/19 19:00 Blood Culture - Final Blood No Growth after 144 hours Laboratory Results WBC 26.8 k/uL (3.8-10.6) H 02/23/19 05:25 RBC 3.34 m/uL (4.30-5.90) L 02/23/19 05:25 Hgb 10.8 gm/dL (13.0-17.5) L 02/23/19 05:25 Hct 31.0 % (39.0-53.0) L 02/23/19 05:25 MCV 93.0 fL (80.0-100.0) 02/23/19 05:25 MCH 32.2 pg (25.0-35.0) 02/23/19 05:25 MCHC 34.9 g/dL (31.0-37.0) 02/23/19 05:25 RDW 15.1 % (11.5-15.5) 02/23/19 05:25 Plt Count 75 k/uL (150-450) L D 02/23/19 05:25 Neutrophils % (Manual) 83 % 02/19/19 05:40 Band Neutrophils % 5 % 02/19/19 05:40 Lymphocytes % (Manual) 9 % 02/19/19 05:40 Monocytes % (Manual) 2 % 02/19/19 05:40 Metamyelocytes % 1 % 02/19/19 05:40 Myelocytes % 4 % 02/16/19 19:00 Neutrophils # (Manual) 12.60 k/uL (1.3-7.7) H 02/19/19 05:40 Lymphocytes # (Manual) 1.30 k/uL (1.0-4.8) 02/19/19 05:40 Monocytes # (Manual) 0.29 k/uL (0-1.0) 02/19/19 05:40 Metamyelocytes # (Man) 0.14 k/uL (0) H 02/19/19 05:40 Myelocytes # (Manual) 0.53 k/uL (0) H 02/16/19 19:00 Nucleated RBCs 0 /100 WBC (0-0) 02/19/19 05:40 Manual Slide Review Performed 02/19/19 05:40 Toxic Granulation Present 02/17/19 04:20 Toxic Vacuolation Present 02/18/19 04:15 Large Platelets Present 02/16/19 19:00 Macrocytosis Slight 02/16/19 19:00 PT 10.9 sec (9.0-12.0) 02/16/19 19:00 INR 1.0 (<1.2) 02/16/19 19:00 APTT 30.0 sec (22.0-30.0) 02/16/19 19:00 Sample Site EDNA 02/23/19 04:47 ABG pH 7.36 (7.35-7.45) 02/23/19 04:47 ABG pCO2 43 mmHg (35-45) 02/23/19 04:47 ABG pO2 170 mmHg (83-108) H 02/23/19 04:47 ABG HCO3 25 mmol/L (21-25) 02/23/19 04:47 ABG Total CO2 26 mmol/L (19-24) H 02/23/19 04:47 ABG O2 Saturation 98.0 % (94-97) H 02/23/19 04:47 ABG Base Excess -0.8 mmol/L 02/23/19 04:47 Lyndon Test Yes 02/23/19 04:47 FiO2 50 % 02/23/19 04:47 Sodium 128 mmol/L (137-145) L 02/23/19 05:25 Potassium 6.8 mmol/L (3.5-5.1) H* 02/23/19 18:14 Chloride 94 mmol/L (98-107) L 02/23/19 05:25 Carbon Dioxide 19 mmol/L (22-30) L 02/23/19 05:25 Anion Gap 15 mmol/L 02/23/19 05:25 BUN 69 mg/dL (9-20) H 02/23/19 05:25 Creatinine 5.00 mg/dL (0.66-1.25) H 02/23/19 05:25 Est GFR (CKD-EPI)AfAm 13 (>60 ml/min/1.73 sqM) 02/23/19 05:25 Est GFR (CKD-EPI)NonAf 12 (>60 ml/min/1.73 sqM) 02/23/19 05:25 Glucose 91 mg/dL (74-99) 02/23/19 05:25 POC Glucose (mg/dL) 119 mg/dL (75-99) H 02/23/19 21:50 POC Glu Bar Waiter/Waitress ID Eduard Rich 02/23/19 21:50 Lactic Ac Sepsis Rflx Y 02/17/19 22:57 Plasma Lactic Acid Tra 7.6 mmol/L (0.7-2.0) H* 02/18/19 04:15 Calcium 5.2 mg/dL (8.4-10.2) L* 02/23/19 05:25 Ionized Calcium Ann 3.1 mg/dL (4.5-5.3) L* 02/20/19 04:35 Phosphorus 9.9 mg/dL (2.5-4.5) H* 02/23/19 05:25 Magnesium 2.3 mg/dL (1.6-2.3) 02/23/19 05:25 Total Bilirubin 3.5 mg/dL (0.2-1.3) H 02/16/19 19:00 AST 51 U/L (17-59) 02/16/19 19:00 ALT 29 U/L (21-72) 02/16/19 19:00 Alkaline Phosphatase 103 U/L (38-126) 02/16/19 19:00 Troponin I 4.250 ng/mL (0.000-0.034) H* 02/18/19 04:15 NT-Pro-B Natriuret Pep 4770 pg/mL 02/16/19 19:00 Total Protein 7.0 g/dL (6.3-8.2) 02/16/19 19:00 Albumin 3.8 g/dL (3.5-5.0) 02/16/19 19:00 Vitamin D 25-Hydroxy 10.9 ng/mL (30.0-100.0) L 02/20/19 04:20 Urine Color Dark Brown 02/19/19 06:10 Urine Appearance Cloudy (Clear) 02/19/19 06:10 Urine pH 5.0 (5.0-8.0) 02/19/19 06:10 Ur Specific [place] 1.019 (1.001-1.035) 02/19/19 06:10 Urine Protein 1+ (Negative) H 02/19/19 06:10 Urine Glucose (UA) 1+ (Negative) H 02/19/19 06:10 Urine Ketones 1+ (Negative) H 02/19/19 06:10 Urine Blood Moderate (Negative) H 02/19/19 06:10 Urine Nitrite Negative (Negative) 02/19/19 06:10 Urine Bilirubin Negative (Negative) 02/19/19 06:10 Urine Urobilinogen <2.0 mg/dL (<2.0) 02/19/19 06:10 Ur Leukocyte Esterase Trace (Negative) H 02/19/19 06:10 Urine RBC 1 /hpf (0-5) 02/19/19 06:10 Urine WBC 1 /hpf (0-5) 02/19/19 06:10 Random Vancomycin 19.3 ug/mL 02/20/19 04:35 Heparin-Ind Plt Ab Scrn 0.169 OD (<0.4) 02/20/19 04:35 Hep Bs Antigen Non-Reactive (Non-Reactive) 02/19/19 05:40 Hep Bs Antibody Non-Reactive (Non-Reactive) 02/19/19 05:40 Hep Bs Antibody, Quant 3.5 mIU/mL 02/19/19 05:40 Hep B Core Total Ab Non-Reactive (Non-Reactive) 02/19/19 05:40 Microbiology 02/16/19 19:00 Blood Blood Culture - Final No Growth after 144 hours 02/18/19 11:45 Pleural Fluid Gram Stain - Final 02/18/19 11:45 Pleural Fluid Body Fluid Culture - Final 02/17/19 12:54 Sputum Gram Stain - Final 02/17/19 12:54 Sputum Sputum Culture - Final Strep pyogenes (grp a) 02/17/19 10:00 Urine,Catheterized Urine Culture - Final Assessment and Plan (1) Influenza A Current Visit: Yes Status: Acute Code(s): J10.1 - FLU DUE TO OTH IDENT INFLUENZA VIRUS W OTH RESP MANIFEST SNOMED Code(s): 112020881 (2) Pneumonia and influenza Narrative/Plan: 63-year-old male who is a history of underlying cardiovascular disease and has been medically disabled presents to Hospital with a relatively short history of influenza A. The patient has the rapid onset of progressive shortness of breath and has now developed respiratory failure, acute lung injury with acute renal failure. Pulmonary critical care is having difficulties of adequate oxygenation and the patient has poor urinary output. His and seen by nephrology and they're contemplating Sled therapy if his hypotension can be further managed. Influenza A is associated with aggressive pneumonia staph aureus and Streptococcus pyogenes given associated with severe necrotizing pneumonia directly links to the influenza infection. We'll continue the active treatment of the influenza with the Tamiflu. Antibiotic therapy with vancomycin and Levaquin has been utilized pending further data. Of note if the patient has been seen the laboratory relates that showed Streptococcus pyogenes has been iso lated in the respiratory secretions. Concern this is a super antigen type strain and constantly antibiotic therapy is altered to ceftriaxone ( with penicillin ALLERGY) and clindamycin was added to attempt to reduce toxin production. Overall prognosis is very poor. 02/19/2019 the patient has now had some measurable improvement. When the PEEP was increased to 16 the patient started fractionate much better and is now had further improvement of several of his parameters including improved hypotension. However has acute renal failure and the case has been discussed with medical care and nephrology. IV access for dialysis is to be placed and hopefully will be over start dialysis soon. As patient is more hemodynamically stable. The antimicrobial therapy with Rocephin and clindamycin are being utilizes point in time. Patient likely has a super antigen strain of strep resulting in the current profound level of illness. 02/20/2019 patient remains profoundly ill with multisystem organ failure however with the new chest tube there is been some improvement of his respiratory status. He is receiving renal replacement therapy and remains on vasopressor therapy. The pneumonia from influenza and super infection with Streptococcus pyogenses is occurring and is on antiviral and antibiotic therapy. For now supportive care is continuing prognosis remains very poor 02/22/2019 patient's status remains intubated, sedated chemically ventilated and vasopressor therapy. Leukocytosis is stable and from a combination of the significant influenza, necrotizing Streptococcus pyogenes pneumonia and hydrocortisone therapy. The thrombocytopenia has improved from 24-42, likely relating to some impr ovement of his sepsis with renal replacement therapy the regimen is down to 5.97, and related that it was well-tolerated today. Antibiotic therapy continues with high-dose Rocephin and clindamycin for the isolated pathogens. Tamiflu continues given the profound respiratory failure originally from influenza A. 02/23/2019 patient remains intubated sedated and mechanically ventilated requiring vasopressor therapy. Over there are some improvements in the last day that the amount of PEEP requirement has gone down, vasopressor therapy is stable and tolerating dialysis without increased amounts of vasopressor. Is having much more effective dialysis session today. Patient remains profoundly ill continues to have leukocytosis but the thrombocytopenia is improving the treatment of uremia and underlying sepsis. Is on the Tamiflu and antibiotic therapy with Rocephin and clindamycin continue no new positive cultures. Prognosis remains poor. Current Visit: Yes Status: Acute Code(s): J11.00 - FLU DUE TO UNIDENTIFIED FLU VIRUS W UNSP TYPE OF PNEUMONIA SNOMED Code(s): 406608897 (3) Acute renal failure Current Visit: Yes Status: Acute Code(s): N17.9 - ACUTE KIDNEY FAILURE, UNSPECIFIED SNOMED Code(s): 17697749
[2019-02-23] MEDS: NOREPINEPHRINE 32 MG in SODIUM CHLORIDE 0.9% 218 ML IV SCH (22:06)
[2019-02-23 22:45] LABS: Magnesium 2.3 mg/dL (1.6-2.3); Potassium 5.7 mmol/L (3.5-5.1)
[2019-02-23 22:54] LABS: Calcium 5.3 mg/dL (8.4-10.2)
[2019-02-24] MEDS: INSULIN ASPART (NovoLOG) 100 UNIT/ML VIAL SQ SCH ×4 (01:48→18:32)
[2019-02-24 01:53] LABS: Glucose,Whole Blood 152 mg/dL (75-99)
[2019-02-24] MEDS: PROPOFOL 1,000 MG in EMPTY BAG 1 BAG IV SCH ×7 (02:05→22:25)
[2019-02-24] MEDS: IPRATROPIUM-ALBUTEROL 3 ML NEB INHALATION SCH ×6 (03:04→23:21)
[2019-02-24 04:32] LABS: ABG Base Excess -3.7 mmol/L; ABG HCO3 24 mmol/L (21-25); ABG Oxygen Saturation 99.5 % (94-97); ABG PCO2 53 mmHg (35-45); ABG PH 7.25 (7.35-7.45); ABG PO2 291 mmHg (83-108); ABG TCO2 25 mmol/L (19-24)
[2019-02-24] MEDS: ARTIFICIAL TEARS-HYPROMELLOSE DROPS 15 ML BTL BOTH EYES SCH ×5 (04:41→20:31)
[2019-02-24] MEDS: HYDROCORTISONE SUCCINATE 100 MG/2 ML VIAL IV SCH ×3 (04:55→20:33)
[2019-02-24] MEDS: METOCLOPRAMIDE 5 MG/ML 2 ML VIAL IVP SCH ×3 (04:55→18:39)
[2019-02-24] MEDS: HYDROmorphone 1 MG/ML 1 ML SYRINGE IVP PRN (05:03)
--- NOTE | 2019-02-24 05:06 | XR ---
EXAM: XR Chest, 1 View CLINICAL HISTORY: ITS.REASON XR Reason: Blood in sputum TECHNIQUE: Frontal view of the chest. COMPARISON: 02/23/2019 at 0612 hours. FINDINGS: Patient is rotated to the right. Query interval removal of the medial left sided chest tube. Rest of the support lines and tubes are stable.Mild left-sided atelectasis/patchy opacities, similar to the prior. IMPRESSION: Interval removal of one of the left-sided chest tubes. Otherwise stable.
[2019-02-24 05:14] LABS: Albumin 2.5 g/dL (3.5-5.0); Magnesium 2.3 mg/dL (1.6-2.3); Total Bilirubin 4.7 mg/dL (0.2-1.3); Total Protein 5.5 g/dL (6.3-8.2)
[2019-02-24 05:43] LABS: Potassium 6.5 mmol/L (3.5-5.1)
[2019-02-24 05:44] LABS: Anisocytosis Slight; MCV 94.2 fL (80.0-100.0); Mean Platelet Volume 11.4; RBC 2.76 m/uL (4.30-5.90); RDW 16.1 % (11.5-15.5); WBC 44.9 k/uL (3.8-10.6)
[2019-02-24 05:45] LABS: Calcium 4.8 mg/dL (8.4-10.2); Phosphorus 12.2 mg/dL (2.5-4.5)
[2019-02-24 06:38] LABS: Glucose,Whole Blood 145 mg/dL (75-99)
[2019-02-24 06:42] LABS: MCH 33.6 pg (25.0-35.0); MCHC 33.6 g/dL (31.0-37.0); Platelet Count 155 k/uL (150-450)
[2019-02-24] MEDS ORDERED: INSULIN REGULAR 100 UNIT/ML VIAL IV ONE ×3 (06:44→23:00)
[2019-02-24] MEDS ORDERED: DEXTROSE 50%-WATER 50 ML SYRINGE IVP STA ×3 (06:45→22:41)
[2019-02-24 06:46] LABS: HGB 8.8 gm/dL (13.0-17.5)
[2019-02-24] MEDS ORDERED: CALCIUM GLUCONATE 2 GM in SODIUM CHLORIDE 0.9% 100 ML IVPB ONE ×2 (07:00→17:37)
[2019-02-24 08:14] LABS: Band Neutrophils % 1 %; Lymphocytes # (M) 2.25 k/uL (1.0-4.8); Neutrophils % (M) 90 %; Nucleated Red Blood Cells 0 /100 WBC (0-0); Total Cells Counted 100
[2019-02-24 08:40] LABS: ABG Base Excess -4.3 mmol/L; ABG HCO3 22 mmol/L (21-25); ABG Oxygen Saturation 97.5 % (94-97); ABG PCO2 50 mmHg (35-45); ABG PH 7.27 (7.35-7.45); ABG PO2 135 mmHg (83-108)
[2019-02-24] MEDS: LACTULOSE 20 GM/30 ML CUP PO SCH ×2 (08:55→21:14)
[2019-02-24] MEDS: NICOTINE 21MG/24HR PATCH TRANSDERM SCH (08:55)
[2019-02-24] MEDS: PANTOPRAZOLE 40 MG/10 ML VIAL IVP SCH ×2 (08:55→21:13)
[2019-02-24] MEDS: CHLORHEXIDINE GLUCONATE 15 ML CUP MUCOUS MEM SCH ×2 (08:56→21:13)
[2019-02-24] MEDS: ASPIRIN 81 MG PO SCH (08:56)
[2019-02-24] MEDS: CALCIUM CARBONATE 500 MG CHEWABLE PO SCH ×2 (08:56→20:30)
[2019-02-24] MEDS: OSELTAMIVIR 60 MG/10 ML ORAL SYRINGE PO SCH ×2 (08:57→21:13)
[2019-02-24] MEDS: CLINDAMYCIN 900 MG in DEXTROSE 5% IN WATER 50 ML IVPB SCH ×4 (08:58→15:56)
--- NOTE | 2019-02-24 10:25 | PN ---
PROGRESS NOTE DATE OF SERVICE: 02/24/2019 This is a 63-year-old male admitted back on February 16. He was admitted initially with the diagnosis of acute respiratory failure with profound hypoxemia secondary to influenza and Streptococcus pyogenes pneumonia. He subsequently developed acute lung injury with acute respiratory distress syndrome and required intubation and mechanical ventilation. He also developed a left-sided pneumothorax that required two Thora-Vents on the left and two chest tubes on the left. I put in the second chest tube when he developed a tension pneumothorax. Currently, he is still on the ventilator. His is on the volume assist-control mode rate of 40, tidal volume 450, FiO2 down to 50%, PEEP of 8. His blood gases this morning show a PO2 of 135, pCO2 of 50, pH if 7.27. That was on 60%. Apparently last night, he developed some respiratory difficulty. I was not called. He was switched back up to 100% FiO2. Blood gases on that setting in the same setting except 100% showed a PO2 of 291, pCO2 of 53 and a pH of 7.25. They did suction blood from his airways. Nobody called me about respiratory mechanics or x-rays, but apparently an x-ray was done and was apparently unchanged. Anyway, I did tell the nurses in the future they should call me with when there is an acute change in the patient's respiratory status, especially someone who is ventilated. His current IVs include 0.9 at 20 mL an hour, Diprivan at 60 mcg/kg per minute, Levophed 40 mcg/minute and Vital high-protein at 22 with a goal of 22. Current vital signs are reviewed, his temperature is 98.5, heart rate 92, respiratory rate 40, blood pressure 102/49. Central venous pressure is 16 and saturations are mid 90s. Appears in no acute distress and does not appear any different than he did yesterday. He still remains off of the paralytic. He is still on high doses of propofol. HEENT examination is grossly unremarkable. There is an orally placed endotracheal tube and NG tube. Neck is supple. Full range of motion. No adenopathy or thyromegaly. Neck veins are flat. Cardiovascular examination reveals regular rhythm and rate. Heart rate in the 90s. S1, S2 normal. Heart sounds are distant. Lungs reveal coarse rhonchi. Breath sounds are diminished on the left. There are no wheezes or crackles. Abdomen is soft. Bowel sounds are heard. Extremities are intact. He does have evidence of acrocyanosis, some livedo reticularis and mottling. Skin is noted as above. Other than that, no skin lesions. Neurologic examination cannot be adequately evaluated. Currently, the patient's labs include a white count of 44.9, hemoglobin 8.8, hematocrit 26.0, platelet count 155,000. Blood gases have been noted. Sodium 128, potassium 6.5, chloride 94, CO2 is 18, BUN and creatinine were 59 and 4.15. The patient has been getting daily dialysis. Dr. Montiel, the library attendant was called about the potassium at 6.5 and a calcium of 4.8. Current AST is 1056, ALT 99. Chest x-ray remains essentially unchanged as was the chest x-ray was done early in the morning. It does show one of the chest tubes has been removed. There was bubbling significantly from the remaining left chest tube that I put in. Microbiology is unchanged. Medications are reviewed. ASSESSMENT: 1. Acute hypoxemic respiratory failure requiring intubation and mechanical ventilation on February 17, 2019 with development of acute respiratory distress syndrome (ARDS), secondary to sepsis, both from influenza and Streptococcus pyogenes pneumonia. 2. Acute septic shock secondary to influenza, complicated by Streptococcus pyogenes pneumonia. 3. Recurrent left-sided pneumothorax, status post Thora-Vent x2 and left-sided chest tube x2 with relief of tension pneumothorax 4 days ago. 4. Acute pneumonia secondary to Streptococcus pyogenes. 5. Acute sepsis/septic shock. 6. Multiorgan system failure. 7. Acute kidney injury secondary to ATN, requiring hemodialysis. 8. History of coronary artery disease with previous stent placement. 9. Profound metabolic acidosis secondary to both shock and renal failure, improved. 10.Fluid overload. 11.Elevated troponins, likely reflecting supply/demand mismatch. PLAN: The patient did apparently take a step back last night. I am not sure what happened in terms of the respiratory difficulty. There was blood suctioned from the airways. It may have just been acute obstruction from that. His fingers and toes look coarse. There is worse acrocyanosis. Circulation appears to be relatively poor. The patient has been re-cultured. The fever was treated with IV Tylenol and Motrin. Additional recommendations and suggestions are forthcoming. Prognosis is very guarded. I have talked to the family on a daily basis. They are not interested in a transfer. Critical care time is 37 minutes. [id number] / IJN: [id number] /
[2019-02-24] MEDS: ACETAMINOPHEN IV (For NPO) 1,000 MG in EMPTY BAG 1 BAG IVPB PRN ×2 (11:10→18:39)
[2019-02-24] MEDS: SODIUM CHLORIDE 0.9% 1,000 ML IV SCH (12:10)
[2019-02-24 12:40] LABS: Glucose,Whole Blood 124 mg/dL (75-99)
--- NOTE | 2019-02-24 13:00 | P.PN ---
Subjective Progress Note Date: 02/24/19 Principal diagnosis: Spontaneous left sided pneumothorax, acute respiratory failure secondary to influenza A and streptococcus pyogenes pneumonia, acute kidney injury secondary to acute tubular necrosis due to hypotension and sepsis, mild troponin elevation. History of CAD with prior stenting, hypertension, hyperlipidemia, chronic tobacco abuse. Thrombocytopenia. POD #6 left chest thoravent placement x 2 and left thoracostomy tube placement POD #5 left femoral dialysis catheter placed by Dr. Barker POD #4 placement of second left thoracostomy tube for recurrent pneumothorax despite left thoracostomy tube in place The patient is currently laying in bed in the intensive care unit, still mechanically ventilated. Remains on levo, titrated up from yesterday. Chest tub es remain in place. Remains in normal sinus rhythm. Sedated on propofol. Received dialysis 4 days in a row, receiving again today to hyperkalemia. CXR this morning is essentially unchanged. Remains febrile. He had an episode of respiratory distress last night and was placed back on 100% FiO2 on the ventilator, currently weaned down to 50% FiO2. Objective - Vital Signs Vital signs: Vital Signs Temp 101.5 F H 02/24/19 12:00 Pulse 107 H 02/24/19 12:00 Resp 40 H 02/24/19 12:00 BP 95/64 02/24/19 12:00 Pulse Ox 99 02/24/19 12:00 Intake & Output 02/23/19 02/24/19 02/24/19 18:59 06:59 18:59 Intake Total 1946.126 4073.643 661.039 Output Total 2009 Balance -842.923 5087.643 601.039 Weight 114.4 kg Intake: IV 412 462 380 ACETAMINOPHEN IV (For NPO 100 ) 1,000 mg In Empty Bag 1 bag @ 400 mls/hr IVPB Q6HR PRN Rx#:[id number] Calcium Gluconate 2 gm In 100 Sodium Chloride 0.9% 100 ml @ 100 mls/hr IVPB ONCE ONE Rx#:[id number] Clindamycin 900 mg In 100 50 50 Dextrose 5% in Water 50 ml @ 50 mls/hr IVPB Q8HR NI Rx#:[id number] Dextrose/water 50% 50 dextrose syringe Sodium Chloride 0.9% 1, 240 240 100 000 ml @ 20 mls/hr IV . Q24H NI Rx#:[id number] cefTRIAXone 2 gm In 50 Sodium Chloride 0.9% 50 ml @ 100 mls/hr IVPB Q24H [facility], [facility] Rx#:[id number] pressure bags 72 72 30 Intake, IV Titration 545.420 952.643 185.039 Amount ACETAMINOPHEN IV (For NPO 100 ) 1,000 mg In Empty Bag 1 bag @ 400 mls/hr IVPB ONCE ONE Rx#:[id number] ACETAMINOPHEN IV (For NPO 400 ) 1,000 mg In Empty Bag 1 bag @ 400 mls/hr IVPB Q6HR PRN Rx#:[id number] Norepinephrine 32 mg In 45.420 92.166 Sodium Chloride 0.9% 218 ml @ 0.05 MCG/KG/MIN 2. 233 mls/hr IV .Q24H [facility] Rx#:[id number] Propofol 1,000 mg In 400 460.477 185.039 Empty Bag 1 bag @ Titrate IV .Q0M [facility] Rx#: [id number] Tube Feeding 239 22 66 Other 90 30 Output: Chest Tube Drainage 3 60 Chest Tube Left 60 Thora-Vent Left Upper Mid 3 0 -Clavicular Chest Urine 10 7 0 Other 2000 Other: Voiding Method Indwelling Catheter Indwelling Catheter Indwelling Catheter ABP, PAP, CO, CI - Last Documented Arterial Blood Pressure 110/58 - Constitutional General appearance: Present: no acute distress - Respiratory Details: Lung sounds diminished bilaterally with coarse breath sounds in the bases. Respirations even, non-labored on mechanical ventilation. Current ventilator settings assist control mode, FiO2 50%, TV 450, RR 40, PEEP 8. 8.0 ETT present, 23 at the lip. Left thoravent to continuous wall suction, no drainage, no air leak. Left chest tube to continuous wall suction, 30 mL serous drainage overnight, 150 mL serosanguinous output in 24 hours, continuous air leak remains present. - Cardiovascular Details: S1/S2 present. Tachycardia but regular rate and rhythm, sinus tach on telemetry. Doppler peripheral pulses bilaterally. No edema present. SCDs present. Left radial arterial line, right internal jugular triple lumen central line present. - Gastrointestinal Gastrointestinal Comment(s): Abdomen soft, non-tender, slightly distended. Active bowel sounds present x 4 quadrants. OGT present, tube feeding infusing at 22 mL/hr. - Genitourinary Genitourinary Comment(s): Loo catheter present draining minimal urine. Left femoral temporary dialysis catheter present. - Integumentary Integumentary Comment(s): Skin is cool, intact. Fluid blisters starting to upper extremities. Bilateral lower extremities mottled with blue toes. - Psychiatric Psychiatric Comment(s): Currently sedated with propofol on mechanical ventilation. - Allied health notes Allied health notes reviewed: nursing - Labs CBC & Chem 7: 02/24/19 04:20 02/24/19 04:20 Labs: Abnormal Lab Results - Last 24 Hours (Table) 02/23/19 02/23/19 02/23/19 Range/Units 18:14 18:14 21:30 WBC (3.8-10.6) k/uL RBC (4.30-5.90) m/uL Hgb (13.0-17.5) gm/dL Hct (39.0-53.0) % RDW (11.5-15.5) % Neutrophils # (Manual) (1.3-7.7) k/uL Monocytes # (Manual) (0-1.0) k/uL ABG pH (7.35-7.45) ABG pCO2 (35-45) mmHg ABG pO2 (83-108) mmHg ABG Total CO2 (19-24) mmol/L ABG O2 Saturation (94-97) % Sodium 129 L (137-145) mmol/L Potassium 6.8 H* 5.7 H (3.5-5.1) mmol/L Chloride 95 L (98-107) mmol/L Carbon Dioxide 20 L (22-30) mmol/L BUN 51 H (9-20) mg/dL Creatinine 3.88 H (0.66-1.25) mg/dL Glucose 101 H (74-99) mg/dL POC Glucose (mg/dL) 108 H (75-99) mg/dL Calcium 5.3 L* (8.4-10.2) mg/dL Phosphorus (2.5-4.5) mg/dL Total Bilirubin (0.2-1.3) mg/dL AST (17-59) U/L ALT (21-72) U/L Alkaline Phosphatase (38-126) U/L Total Protein (6.3-8.2) g/dL Albumin (3.5-5.0) g/dL 02/23/19 02/24/19 02/24/19 Range/Units 21:50 01:41 04:20 WBC 44.9 H (3.8-10.6) k/uL RBC 2.76 L (4.30-5.90) m/uL Hgb 8.8 L D (13.0-17.5) gm/dL Hct 26.0 L (39.0-53.0) % RDW 16.1 H (11.5-15.5) % Neutrophils # (Manual) 40.80 H (1.3-7.7) k/uL Monocytes # (Manual) 1.80 H (0-1.0) k/uL ABG pH (7.35-7.45) ABG pCO2 (35-45) mmHg ABG pO2 (83-108) mmHg ABG Total CO2 (19-24) mmol/L ABG O2 Saturation (94-97) % Sodium (137-145) mmol/L Potassium (3.5-5.1) mmol/L Chloride (98-107) mmol/L Carbon Dioxide (22-30) mmol/L BUN (9-20) mg/dL Creatinine (0.66-1.25) mg/dL Glucose (74-99) mg/dL POC Glucose (mg/dL) 119 H 152 H (75-99) mg/dL Calcium (8.4-10.2) mg/dL Phosphorus (2.5-4.5) mg/dL Total Bilirubin (0.2-1.3) mg/dL AST (17-59) U/L ALT (21-72) U/L Alkaline Phosphatase (38-126) U/L Total Protein (6.3-8.2) g/dL Albumin (3.5-5.0) g/dL 02/24/19 02/24/19 02/24/19 Range/Units 04:20 04:28 06:26 WBC (3.8-10.6) k/uL RBC (4.30-5.90) m/uL Hgb (13.0-17.5) gm/dL Hct (39.0-53.0) % RDW (11.5-15.5) % Neutrophils # (Manual) (1.3-7.7) k/uL Monocytes # (Manual) (0-1.0) k/uL ABG pH 7.25 L (7.35-7.45) ABG pCO2 53 H (35-45) mmHg ABG pO2 291 H (83-108) mmHg ABG Total CO2 25 H (19-24) mmol/L ABG O2 Saturation 99.5 H (94-97) % Sodium 128 L (137-145) mmol/L Potassium 6.5 H* (3.5-5.1) mmol/L Chloride 94 L (98-107) mmol/L Carbon Dioxide 18 L (22-30) mmol/L BUN 59 H (9-20) mg/dL Creatinine 4.15 H (0.66-1.25) mg/dL Glucose 138 H (74-99) mg/dL POC Glucose (mg/dL) 145 H (75-99) mg/dL Calcium 4.8 L* (8.4-10.2) mg/dL Phosphorus 12.2 H* (2.5-4.5) mg/dL Total Bilirubin 4.7 H (0.2-1.3) mg/dL AST 1056 H (17-59) U/L ALT 99 H (21-72) U/L Alkaline Phosphatase 230 H (38-126) U/L Total Protein 5.5 L (6.3-8.2) g/dL Albumin 2.5 L (3.5-5.0) g/dL 02/24/19 02/24/19 Range/Units 08:31 12:18 WBC (3.8-10.6) k/uL RBC (4.30-5.90) m/uL Hgb (13.0-17.5) gm/dL Hct (39.0-53.0) % RDW (11.5-15.5) % Neutrophils # (Manual) (1.3-7.7) k/uL Monocytes # (Manual) (0-1.0) k/uL ABG pH 7.27 L (7.35-7.45) ABG pCO2 50 H (35-45) mmHg ABG pO2 135 H (83-108) mmHg ABG Total CO2 (19-24) mmol/L ABG O2 Saturation 97.5 H (94-97) % Sodium (137-145) mmol/L Potassium (3.5-5.1) mmol/L Chloride (98-107) mmol/L Carbon Dioxide (22-30) mmol/L BUN (9-20) mg/dL Creatinine (0.66-1.25) mg/dL Glucose (74-99) mg/dL POC Glucose (mg/dL) 124 H (75-99) mg/dL Calcium (8.4-10.2) mg/dL Phosphorus (2.5-4.5) mg/dL Total Bilirubin (0.2-1.3) mg/dL AST (17-59) U/L ALT (21-72) U/L Alkaline Phosphatase (38-126) U/L Total Protein (6.3-8.2) g/dL Albumin (3.5-5.0) g/dL Microbiology - Last 24 Hours (Table) 02/23/19 20:07 Gram Stain - Preliminary Sputum Sputum Culture - Preliminary - Imaging and Cardiology Chest x-ray: report reviewed, image reviewed Assessment and Plan Assessment: 1. Spontaneous left pneumothorax, status post thoravent and thoracostomy tube placement 2. Acute respiratory failure with influenza A and streptococcus pyrogenes pneumonia, ARDS 3. Acute kidney injury secondary to acute tubular necrosis, status post temporary dialysis placement with daily dialysis 4. Septic shock with lactic acidosis 5. Multisystem organ failure 6. Troponin elevation 7. History of CAD with prior stenting 8. History of hypertension, currently hypotensive on levo 9. Hyperlipidemia 10. Chronic tobacco dependance 11. Thrombocytopenia, HIT panel negative Plan: 1. Continue left pleural chest tube to continuous wall suction, will monitor for resolution of air leak 2. Will monitor daily labs, x-rays 3. Wean ventilator when able. Ventilator management per pulmonology 4. Bronchodilators, steroids per pulmonology 5. Antibiotics per infectious disease. 6. GI/DVT prophylaxis with protonix, SCDs. 7. Avoid nephrotoxic agents. Continue hemodiaysis per nephrology. Wean levo as able. 8. Medical management of other comorbid conditions per primary care service. 9. More recommendations as patient progresses. Time with Patient: Greater than 30
--- NOTE | 2019-02-24 14:04 | PN ---
PROGRESS NOTE Patient is seen for followup for acute kidney injury. Last night, patient had bleeding from the endotracheal tube. His oxygen requirement had increased as well. He is currently down to 60% on the FiO2. Levophed is at about 15 mcg. The patient continues to have no urine output. He is maintained on daily dialysis for acute kidney injury, which is mainly secondary to ATN. Patient remains oliguric with no significant urine output. He has also been hyperkalemic and has received daily dialysis this week. No active GI bleed noted at this time. PHYSICAL EXAMINATION: On examination today, patient remains on the vent. Blood pressure was 110/58, heart rate of 107 per minute. Patient is afebrile. His T-max was 101.8. Examination of the heart, S1, S2. Examination of the lungs, bilateral breath sounds are heard. Patient has a chest tube on the left side. Abdomen is distended, nontender. Examination of the lower extremities shows edema 2+ bilaterally with discoloration of the toes noted bilaterally. AIRPORT GUIDE exam cannot be performed. LABS: Show sodium 128, potassium 6.5, chloride 94, CO2 is 18, BUN 59, serum creatinine 4.15, phosphorus 12.2, calcium 4.8. ASSESSMENT: 1. Acute kidney injury. Oliguric ATN, currently hemodialysis dependent. Patient will be dialyzed again today. We will dialyze for 4 hours on higher blood flow and dialyze 8 flows and potassium bath will be adjusted for the persistent hyperkalemia. The patient is in a hypercatabolic state. 2. Hyperphosphatemia associated with renal failure. 3. Hypocalcemia associated with severe nutrition vitamin D deficiency maintained on supplementation as well as calcium supplements. We will adjust the calcium bath on dialysis as well. 4. Hyponatremia which is hypervolemic. Expect improvement with dialysis. 5. Acute hypoxic respiratory failure secondary to influenza as well as strep pyogenes pneumonia. 6. Influenza A. 7. Metabolic acidosis. 8. Possible ischemic bowel. PLAN: Repeat hemodialysis today at just potassium and calcium baths on hemodialysis. Overall prognosis is guarded. Patient's requirement of Levophed has increased as of yesterday. MMODL / IJN: [id number] /
[2019-02-24] MEDS: IBUPROFEN 600 MG TAB PO PRN ×2 (15:55→20:30)
[2019-02-24 17:24] LABS: Calcium 5.4 mg/dL (8.4-10.2)
[2019-02-24 18:07] LABS: Glucose,Whole Blood 218 mg/dL (75-99)
[2019-02-24] MEDS: NOREPINEPHRINE 32 MG in SODIUM CHLORIDE 0.9% 218 ML IV SCH (19:50)
[2019-02-24] MEDS: ERGOCALCIFEROL 50,000 UNIT CAP PO SCH (21:13)
[2019-02-24] MEDS: INSULIN DETEMIR (LEVEMIR) 100 UNIT/ML SYR SQ SCH (21:14)
[2019-02-24 21:23] LABS: Glucose,Whole Blood 166 mg/dL (75-99)
[2019-02-24] MEDS ORDERED: SODIUM BICARB 8.4% 50 ML SYR (1 MEQ/ML) IV ONE (22:41)
[2019-02-24] MEDS ORDERED: ALBUTEROL NEBULIZED (CONC) 20 MG, SODIUM CHLORIDE 0.9% NEBULIZ 3 ML INHALATION ONE ×2 (22:41)
--- NOTE | 2019-02-24 22:41 | P.PN ---
Subjective Progress Note Date: 02/24/19 63-year-old male who has a history of tobacco use, coronary artery disease and congestive heart failure with the family relates is medically disabled because of his cardiac disease. He was ill earlier this week when he went to the walk-in clinic on Wednesday at that point in time was found to have evidence of fever and chest congestion. Influenza testing was positive for influenza a the patient was started on Tamiflu. The patient however then developed progressive decline of his status and on the presented to the emergency center. At that point in time he was profoundly ill with hypoxia, acidosis, and renal failure. He simply was admitted for intensive care unit he was intubated and has been sedated and mechanically ventilated. He is without significant hypotension is required multiple vasopressor agents that include Levophed and vasopressin, and has been treated with stress doses of steroids. The patient had worsening of his status and with his worsening pneumonia and refractory sepsis the infectious diseases consultation was requested. The patient's family is present. Relates that he has been with a declining medical status for some time but became acutely ill recently. None of the other family members are ill at this time. As noted the patient is intubated, sedated and mechanically ventilated and paralyzed further information from the family. The patient's status did worsen with a spontaneous pneumothorax which resulted in placement of two thoaravent devices which did not resolve the pneumothorax and constantly a chest tube was applied which has resolved most of the pneumothorax. As noted despite this remains hemodynamically unstable. 02/19/2019 the patient has had fever overnight. 102.1 recently. Intravenously acetaminophen has been given. With the change in the patient's PEEP to 16 there has now been a marked improvement of his oxygenation. He is on lower doses of vasopressor but remains with his acute renal failure and he is anicteric. As noted his sputum is evidence of Streptococcus pyogenes superimposed on influenza A. The case has been discussed with pulmonary critical care as well as nephrology. 02/20/2019 patient had difficulties with his chest tube and a new chest tube was then placed with marked improvement of his respiratory status. There has been a reduction in the amount of vasopressor therapy. Status post chest tube placement oxygenation is considerably improved. Fever has improved. No new positive cultures. Thrombocytopenia has worsened. Renal replacement therapy has been started 02/22/2019 patient remains in intensive care unit, intubated sedated and mechanically ventilated on vasopressor therapy. Leukocytosis persists in the thrombocytopenia has slightly improved. Vasopressor therapy is stable and there is been reduction in the amount of PEEP. Tolerated renal replacement therapy again 02/23/2019 receiving renal replacement therapy for the fifth time. Tolerating it well. Fevers have improved. Hypotension is improving. 02/24/2019 patient has had renal replacement therapy and has ongoing multisystem organ failure, with ARDS oliguric acute renal failure, hypotension. Hyperkalemia is persistent and further changed to hemodialysis tomorrow have been planned. Patient was febrile again. Objective - Vital Signs Vital signs: Vital Signs Temp 102.2 F H 02/24/19 16:00 Pulse 114 H 02/24/19 20:08 Resp 40 H 02/24/19 19:00 BP 95/51 02/24/19 18:00 Pulse Ox 93 L 02/24/19 19:00 Intake & Output 02/24/19 02/24/19 02/25/19 06:59 18:59 06:59 Intake Total 1932.756 3292.118 160.233 Output Total 10 130 0 Balance 6466.629 4590.118 160.233 Weight 114.4 kg 114.4 kg Intake: IV 462 662 126 ACETAMINOPHEN IV (For NPO 100 ) 1,000 mg In Empty Bag 1 bag @ 400 mls/hr IVPB Q6HR PRN Rx#:[id number] ACETAMINOPHEN IV (For NPO 100 ) 1,000 mg In Empty Bag 1 bag @ 400 mls/hr IVPB Q6HR PRN Rx#:[id number] Calcium Gluconate 2 gm In 100 100 Sodium Chloride 0.9% 100 ml @ 100 mls/hr IVPB ONCE ONE Rx#:[id number] Clindamycin 900 mg In 50 50 Dextrose 5% in Water 50 ml @ 50 mls/hr IVPB Q8HR NI Rx#:[id number] Dextrose/water 50% 50 dextrose syringe Sodium Chloride 0.9% 1, 240 240 20 000 ml @ 20 mls/hr IV . Q24H NI Rx#:[id number] cefTRIAXone 2 gm In 50 Sodium Chloride 0.9% 50 ml @ 100 mls/hr IVPB Q24H NI Rx#:[id number] pressure bags 72 72 6 Intake, IV Titration 952.643 352.118 34.233 Amount ACETAMINOPHEN IV (For NPO 400 ) 1,000 mg In Empty Bag 1 bag @ 400 mls/hr IVPB Q6HR PRN Rx#:[id number] Norepinephrine 32 mg In 92.166 67.079 34.233 Sodium Chloride 0.9% 218 ml @ 0.05 MCG/KG/MIN 2. 233 mls/hr IV .Q24H NI Rx#:[id number] Propofol 1,000 mg In 460.477 285.039 Empty Bag 1 bag @ Titrate IV .Q0M NI Rx#: [id number] Tube Feeding 22 136 Other 90 Output: Chest Tube Drainage 3 130 Chest Tube Left 130 Thora-Vent Left Upper Mid 3 0 -Clavicular Chest Urine 7 0 0 Other: Voiding Method Indwelling Catheter Indwelling Catheter ABP, PAP, CO, CI - Last Documented Arterial Blood Pressure 110/55 - Exam 63-year-old male HEENT: Anicteric conjunctiva are pale but moist nasal mucosa grossly intact without significant lesions, there is no thrush noted around the endotracheal tube. No evidence of bleeding Neck: The neck is supple without significant lymphadenopathy or thyromegaly. Lungs: There is symmetrical air entry however very coarse bronchial sounds are heard in all lung garsia and still amphoric sounds in the anterior aspect of the left chest where the Heart: Tachycardic no murmur is noted there is palpable subcutaneous emphysema along the anterior aspect of the shoulder and upper aspect of the chest above the clavicle Abdomen: Abdomen has few bowel sounds, it is soft minimally distended and can palpate no mass or organomegaly Extremities: The extremities have some generalized edema, hands and feet are cool to touch mild bluish discoloration is noted,but no necrosis or ulcerations are seen Neuro: Sedated paralyzed mechanically ventilated - Labs CBC & Chem 7: 02/24/19 04:20 02/24/19 21:05 Labs: Abnormal Lab Results - Last 24 Hours (Table) 02/23/19 02/24/19 02/24/19 Range/Units 21:30 01:41 04:20 WBC 44.9 H (3.8-10.6) k/uL RBC 2.76 L (4.30-5.90) m/uL Hgb 8.8 L D (13.0-17.5) gm/dL Hct 26.0 L (39.0-53.0) % RDW 16.1 H (11.5-15.5) % Neutrophils # (Manual) 40.80 H (1.3-7.7) k/uL Monocytes # (Manual) 1.80 H (0-1.0) k/uL ABG pH (7.35-7.45) ABG pCO2 (35-45) mmHg ABG pO2 (83-108) mmHg ABG Total CO2 (19-24) mmol/L ABG O2 Saturation (94-97) % Sodium 129 L (137-145) mmol/L Potassium 5.7 H (3.5-5.1) mmol/L Chloride 95 L (98-107) mmol/L Carbon Dioxide 20 L (22-30) mmol/L BUN 51 H (9-20) mg/dL Creatinine 3.88 H (0.66-1.25) mg/dL Glucose 101 H (74-99) mg/dL POC Glucose (mg/dL) 152 H (75-99) mg/dL Calcium 5.3 L* (8.4-10.2) mg/dL Phosphorus (2.5-4.5) mg/dL Total Bilirubin (0.2-1.3) mg/dL AST (17-59) U/L ALT (21-72) U/L Alkaline Phosphatase (38-126) U/L Total Protein (6.3-8.2) g/dL Albumin (3.5-5.0) g/dL 02/24/19 02/24/19 02/24/19 Range/Units 04:20 04:28 06:26 WBC (3.8-10.6) k/uL RBC (4.30-5.90) m/uL Hgb (13.0-17.5) gm/dL Hct (39.0-53.0) % RDW (11.5-15.5) % Neutrophils # (Manual) (1.3-7.7) k/uL Monocytes # (Manual) (0-1.0) k/uL ABG pH 7.25 L (7.35-7.45) ABG pCO2 53 H (35-45) mmHg ABG pO2 291 H (83-108) mmHg ABG Total CO2 25 H (19-24) mmol/L ABG O2 Saturation 99.5 H (94-97) % Sodium 128 L (137-145) mmol/L Potassium 6.5 H* (3.5-5.1) mmol/L Chloride 94 L (98-107) mmol/L Carbon Dioxide 18 L (22-30) mmol/L BUN 59 H (9-20) mg/dL Creatinine 4.15 H (0.66-1.25) mg/dL Glucose 138 H (74-99) mg/dL POC Glucose (mg/dL) 145 H (75-99) mg/dL Calcium 4.8 L* (8.4-10.2) mg/dL Phosphorus 12.2 H* (2.5-4.5) mg/dL Total Bilirubin 4.7 H (0.2-1.3) mg/dL AST 1056 H (17-59) U/L ALT 99 H (21-72) U/L Alkaline Phosphatase 230 H (38-126) U/L Total Protein 5.5 L (6.3-8.2) g/dL Albumin 2.5 L (3.5-5.0) g/dL 02/24/19 02/24/19 02/24/19 Range/Units 08:31 12:18 16:35 WBC (3.8-10.6) k/uL RBC (4.30-5.90) m/uL Hgb (13.0-17.5) gm/dL Hct (39.0-53.0) % RDW (11.5-15.5) % Neutrophils # (Manual) (1.3-7.7) k/uL Monocytes # (Manual) (0-1.0) k/uL ABG pH 7.27 L (7.35-7.45) ABG pCO2 50 H (35-45) mmHg ABG pO2 135 H (83-108) mmHg ABG Total CO2 (19-24) mmol/L ABG O2 Saturation 97.5 H (94-97) % Sodium 127 L (137-145) mmol/L Potassium 7.0 H* (3.5-5.1) mmol/L Chloride 94 L (98-107) mmol/L Carbon Dioxide 17 L (22-30) mmol/L BUN 41 H (9-20) mg/dL Creatinine 2.65 H (0.66-1.25) mg/dL Glucose 119 H (74-99) mg/dL POC Glucose (mg/dL) 124 H (75-99) mg/dL Calcium 5.4 L* (8.4-10.2) mg/dL Phosphorus (2.5-4.5) mg/dL Total Bilirubin (0.2-1.3) mg/dL AST (17-59) U/L ALT (21-72) U/L Alkaline Phosphatase (38-126) U/L Total Protein (6.3-8.2) g/dL Albumin (3.5-5.0) g/dL 02/24/19 02/24/19 02/24/19 Range/Units 17:40 17:45 21:05 WBC (3.8-10.6) k/uL RBC (4.30-5.90) m/uL Hgb (13.0-17.5) gm/dL Hct (39.0-53.0) % RDW (11.5-15.5) % Neutrophils # (Manual) (1.3-7.7) k/uL Monocytes # (Manual) (0-1.0) k/uL ABG pH (7.35-7.45) ABG pCO2 (35-45) mmHg ABG pO2 (83-108) mmHg ABG Total CO2 (19-24) mmol/L ABG O2 Saturation (94-97) % Sodium (137-145) mmol/L Potassium 6.3 H* 6.5 H* (3.5-5.1) mmol/L Chloride (98-107) mmol/L Carbon Dioxide (22-30) mmol/L BUN (9-20) mg/dL Creatinine (0.66-1.25) mg/dL Glucose (74-99) mg/dL POC Glucose (mg/dL) 218 H (75-99) mg/dL Calcium (8.4-10.2) mg/dL Phosphorus (2.5-4.5) mg/dL Total Bilirubin (0.2-1.3) mg/dL AST (17-59) U/L ALT (21-72) U/L Alkaline Phosphatase (38-126) U/L Total Protein (6.3-8.2) g/dL Albumin (3.5-5.0) g/dL 02/24/19 Range/Units 21:11 WBC (3.8-10.6) k/uL RBC (4.30-5.90) m/uL Hgb (13.0-17.5) gm/dL Hct (39.0-53.0) % RDW (11.5-15.5) % Neutrophils # (Manual) (1.3-7.7) k/uL Monocytes # (Manual) (0-1.0) k/uL ABG pH (7.35-7.45) ABG pCO2 (35-45) mmHg ABG pO2 (83-108) mmHg ABG Total CO2 (19-24) mmol/L ABG O2 Saturation (94-97) % Sodium (137-145) mmol/L Potassium (3.5-5.1) mmol/L Chloride (98-107) mmol/L Carbon Dioxide (22-30) mmol/L BUN (9-20) mg/dL Creatinine (0.66-1.25) mg/dL Glucose (74-99) mg/dL POC Glucose (mg/dL) 166 H (75-99) mg/dL Calcium (8.4-10.2) mg/dL Phosphorus (2.5-4.5) mg/dL Total Bilirubin (0.2-1.3) mg/dL AST (17-59) U/L ALT (21-72) U/L Alkaline Phosphatase (38-126) U/L Total Protein (6.3-8.2) g/dL Albumin (3.5-5.0) g/dL Microbiology - Last 24 Hours (Table) 02/23/19 10:15 Blood Culture - Preliminary Blood No Growth after 24 hours 02/23/19 20:07 Gram Stain - Preliminary Sputum Sputum Culture - Preliminary Laboratory Results WBC 44.9 k/uL (3.8-10.6) H 02/24/19 04:20 RBC 2.76 m/uL (4.30-5.90) L 02/24/19 04:20 Hgb 8.8 gm/dL (13.0-17.5) L D 02/24/19 04:20 Hct 26.0 % (39.0-53.0) L 02/24/19 04:20 MCV 94.2 fL (80.0-100.0) 02/24/19 04:20 MCH 33.6 pg (25.0-35.0) 02/24/19 04:20 MCHC 33.6 g/dL (31.0-37.0) 02/24/19 04:20 RDW 16.1 % (11.5-15.5) H 02/24/19 04:20 Plt Count 155 k/uL (150-450) D 02/24/19 04:20 Neutrophils % (Manual) 90 % 02/24/19 04:20 Band Neutrophils % 1 % 02/24/19 04:20 Lymphocytes % (Manual) 5 % 02/24/19 04:20 Monocytes % (Manual) 4 % 02/24/19 04:20 Metamyelocytes % 1 % 02/19/19 05:40 Myelocytes % 4 % 02/16/19 19:00 Neutrophils # (Manual) 40.80 k/uL (1.3-7.7) H 02/24/19 04:20 Lymphocytes # (Manual) 2.25 k/uL (1.0-4.8) 02/24/19 04:20 Monocytes # (Manual) 1.80 k/uL (0-1.0) H 02/24/19 04:20 Metamyelocytes # (Man) 0.14 k/uL (0) H 02/19/19 05:40 Myelocytes # (Manual) 0.53 k/uL (0) H 02/16/19 19:00 Nucleated RBCs 0 /100 WBC (0-0) 02/24/19 04:20 Differential Comment 02/24/19 04:20 Manual Slide Review Performed 02/24/19 04:20 Toxic Granulation Present 02/17/19 04:20 Toxic Vacuolation Present 02/18/19 04:15 Large Platelets Present 02/16/19 19:00 Anisocytosis Slight 02/24/19 04:20 Macrocytosis Slight 02/16/19 19:00 PT 10.9 sec (9.0-12.0) 02/16/19 19:00 INR 1.0 (<1.2) 02/16/19 19:00 APTT 30.0 sec (22.0-30.0) 02/16/19 19:00 Sample Site [place] 02/24/19 08:31 ABG pH 7.27 (7.35-7.45) L 02/24/19 08:31 ABG pCO2 50 mmHg (35-45) H 02/24/19 08:31 ABG pO2 135 mmHg (83-108) H 02/24/19 08:31 ABG HCO3 22 mmol/L (21-25) 02/24/19 08:31 ABG Total CO2 25 mmol/L (19-24) H 02/24/19 04:28 ABG O2 Saturation 97.5 % (94-97) H 02/24/19 08:31 ABG Base Excess -4.3 mmol/L 02/24/19 08:31 Lyndon Test Yes 02/24/19 08:31 FiO2 60 % 02/24/19 08:31 Sodium 127 mmol/L (137-145) L 02/24/19 16:35 Potassium 6.5 mmol/L (3.5-5.1) H* 02/24/19 21:05 Chloride 94 mmol/L (98-107) L 02/24/19 16:35 Carbon Dioxide 17 mmol/L (22-30) L 02/24/19 16:35 Anion Gap 16 mmol/L 02/24/19 16:35 BUN 41 mg/dL (9-20) H 02/24/19 16:35 Creatinine 2.65 mg/dL (0.66-1.25) H 02/24/19 16:35 Est GFR (CKD-EPI)AfAm 29 (>60 ml/min/1.73 sqM) 02/24/19 16:35 Est GFR (CKD-EPI)NonAf 25 (>60 ml/min/1.73 sqM) 02/24/19 16:35 Glucose 119 mg/dL (74-99) H 02/24/19 16:35 POC Glucose (mg/dL) 166 mg/dL (75-99) H 02/24/19 21:11 POC Glu Equipment Maintenance Superintendent Eduard Sosa 02/24/19 21:11 Lactic Ac Sepsis Rflx Y 02/17/19 22:57 Plasma Lactic Acid Tra 7.6 mmol/L (0.7-2.0) H* 02/18/19 04:15 Calcium 5.4 mg/dL (8.4-10.2) L* 02/24/19 16:35 Ionized Calcium Ann 3.1 mg/dL (4.5-5.3) L* 02/20/19 04:35 Phosphorus 12.2 mg/dL (2.5-4.5) H* 02/24/19 04:20 Magnesium 2.3 mg/dL (1.6-2.3) 02/24/19 04:20 Total Bilirubin 4.7 mg/dL (0.2-1.3) H 02/24/19 04:20 AST 1056 U/L (17-59) H 02/24/19 04:20 ALT 99 U/L (21-72) H 02/24/19 04:20 Alkaline Phosphatase 230 U/L (38-126) H 02/24/19 04:20 Troponin I 4.250 ng/mL (0.000-0.034) H* 02/18/19 04:15 NT-Pro-B Natriuret Pep 4770 pg/mL 02/16/19 19:00 Total Protein 5.5 g/dL (6.3-8.2) L 02/24/19 04:20 Albumin 2.5 g/dL (3.5-5.0) L 02/24/19 04:20 Vitamin D 25-Hydroxy 10.9 ng/mL (30.0-100.0) L 02/20/19 04:20 Urine Color Dark Brown 02/19/19 06:10 Urine Appearance Cloudy (Clear) 02/19/19 06:10 Urine pH 5.0 (5.0-8.0) 02/19/19 06:10 Ur Specific [place] 1.019 (1.001-1.035) 02/19/19 06:10 Urine Protein 1+ (Negative) H 02/19/19 06:10 Urine Glucose (UA) 1+ (Negative) H 02/19/19 06:10 Urine Ketones 1+ (Negative) H 02/19/19 06:10 Urine Blood Moderate (Negative) H 02/19/19 06:10 Urine Nitrite Negative (Negative) 02/19/19 06:10 Urine Bilirubin Negative (Negative) 02/19/19 06:10 Urine Urobilinogen <2.0 mg/dL (<2.0) 02/19/19 06:10 Ur Leukocyte Esterase Trace (Negative) H 02/19/19 06:10 Urine RBC 1 /hpf (0-5) 02/19/19 06:10 Urine WBC 1 /hpf (0-5) 02/19/19 06:10 Random Vancomycin 19.3 ug/mL 02/20/19 04:35 Heparin-Ind Plt Ab Scrn 0.169 OD (<0.4) 02/20/19 04:35 Hep Bs Antigen Non-Reactive (Non-Reactive) 02/19/19 05:40 Hep Bs Antibody Non-Reactive (Non-Reactive) 02/19/19 05:40 Hep Bs Antibody, Quant 3.5 mIU/mL 02/19/19 05:40 Hep B Core Total Ab Non-Reactive (Non-Reactive) 02/19/19 05:40 Microbiology 02/23/19 10:15 Blood Blood Culture - Preliminary No Growth after 24 hours 02/23/19 20:07 Sputum Gram Stain - Preliminary 02/23/19 20:07 Sputum Sputum Culture - Preliminary 02/16/19 19:00 Blood Blood Culture - Final No Growth after 144 hours 02/18/19 11:45 Pleural Fluid Gram Stain - Final 02/18/19 11:45 Pleural Fluid Body Fluid Culture - Final 02/17/19 12:54 Sputum Gram Stain - Final 02/17/19 12:54 Sputum Sputum Culture - Final Strep pyogenes (grp a) 02/17/19 10:00 Urine,Catheterized Urine Culture - Final - Imaging and Cardiology Chest x-ray: report reviewed (Left sided pneumothorax resolved) Assessment and Plan (1) Influenza A Current Visit: Yes Status: Acute Code(s): J10.1 - FLU DUE TO OTH IDENT INFLUENZA VIRUS W OTH RESP MANIFEST SNOMED Code(s): 925294626 (2) Pneumonia and influenza Narrative/Plan: 63-year-old male who is a history of underlying cardiovascular disease and has been medically disabled presents to Hospital with a relatively short history of influenza A. The patient has the rapid onset of progressive shortness of breath and has now developed respiratory failure, acute lung injury with acute renal failure. Pulmonary critical care is having difficulties of adequate oxygenation and the patient has poor urinary output. His and seen by n ephrology and they're contemplating Sled therapy if his hypotension can be further managed. Influenza A is associated with aggressive pneumonia staph aureus and Streptococcus pyogenes given associated with severe necrotizing pneumonia directly links to the influenza infection. We'll continue the active treatment of the influenza with the Tamiflu. Antibiotic therapy with vancomycin and Levaquin has been utilized pending further data. Of note if the patient has been seen the laboratory relates that showed Streptococcus pyogenes has been isolated in the respiratory secretions. Concern this is a super antigen type strain and constantly antibiotic therapy is altered to ceftriaxone ( with pen icillin ALLERGY) and clindamycin was added to attempt to reduce toxin production. Overall prognosis is very poor. 02/19/2019 the patient has now had some measurable improvement. When the PEEP was increased to 16 the patient started fractionate much better and is now had further improvement of several of his parameters including improved hypotension. However has acute renal failure and the case has been discussed with medical care and nephrology. IV access for dialysis is to be placed and hopefully will be over start dialysis soon. As patient is more hemodynamically stable. The antimicrobial therapy with Rocephin and clindamycin are being utilizes point in time. Patient likely has a super antigen strain of strep resulting in the current profound level of illness. 02/20/2019 patient remains profoundly ill with multisystem organ failure however with the new chest tube there is been some improvement of his respiratory status. He is receiving renal replacement therapy and remains on vasopressor therapy. The pneumonia from influenza and super infection with Streptococcus pyogenses i s occurring and is on antiviral and antibiotic therapy. For now supportive care is continuing prognosis remains very poor 02/22/2019 patient's status remains intubated, sedated chemically ventilated and vasopressor therapy. Leukocytosis is stable and from a combination of the significant influenza, necrotizing Streptococcus pyogenes pneumonia and hydrocortisone therapy. The thrombocytopenia has improved from 24-42, likely relating to some improvement of his sepsis with renal replacement therapy the regimen is down to 5.97, and related that it was well-tolerated today. Antibiotic therapy continues with high-dose Rocephin and clindamycin for the isolated pathogens. Tamiflu continues given the profound respiratory failure originally from influenza A. 02/23/2019 patient remains intubated sedated and mechanically ventilated requiring vasopressor therapy. Over there are some improvements in the last day that the amount of PEEP requirement has gone down, vasopressor therapy is stable and tolerating dialysis without increased amounts of vasopressor. Is having much more effective dialysis session today. Patient remains profoundly ill continues to have leukocytosis but the thrombocytopenia is improving the treatment of uremia and underlying sepsis. Is on the Tamiflu and antibiotic th erapy with Rocephin and clindamycin continue no new positive cultures. Prognosis remains poor. 02/24/2019 patient remains with multisystem organ failure, with multiple sessions of hemodialysis there has been some slight improvement in his pulmonary status. Remains on vasopressor therapy Patient is now developing increasing leukocytosis. Etiology is not entirely clear however he is receiving stress doses of hydrocortisone which may be driving the leukocytosis. Other concerns include worsening sepsis or develop of underlying organ ischemia. The patient is on clindamycin therapy and if develo ps diarrhea will need to be concerned about the possibility of C. diff colitis also. Prognosis remains poor. Current Visit: Yes Status: Acute Code(s): J11.00 - FLU DUE TO UNIDENTIFIED FLU VIRUS W UNSP TYPE OF PNEUMONIA SNOMED Code(s): 230243874 (3) Acute renal failure Current Visit: Yes Status: Acute Code(s): N17.9 - ACUTE KIDNEY FAILURE, UNSPECIFIED SNOMED Code(s): 25337823
[2019-02-24] MEDS ORDERED: CALCIUM GLUCONATE 1 GM in SODIUM CHLORIDE 0.9% 100 ML IVPB ONE (23:00)
[2019-02-25 00:11] LABS: Glucose,Whole Blood 174 mg/dL (75-99)
[2019-02-25] MEDS: METOCLOPRAMIDE 5 MG/ML 2 ML VIAL IVP SCH ×4 (00:31→18:11)
[2019-02-25] MEDS: ARTIFICIAL TEARS-HYPROMELLOSE DROPS 15 ML BTL BOTH EYES SCH ×7 (00:34→23:11)
[2019-02-25] MEDS: CLINDAMYCIN 900 MG in DEXTROSE 5% IN WATER 50 ML IVPB SCH ×8 (00:35→19:35)
[2019-02-25] MEDS: INSULIN ASPART (NovoLOG) 100 UNIT/ML VIAL SQ SCH ×4 (00:49→18:26)
[2019-02-25 00:55] LABS: Glucose,Whole Blood 175 mg/dL (75-99)
[2019-02-25] MEDS: PROPOFOL 1,000 MG in EMPTY BAG 1 BAG IV SCH ×6 (02:10→21:00)
[2019-02-25] MEDS: IPRATROPIUM-ALBUTEROL 3 ML NEB INHALATION SCH ×6 (03:30→23:59)
[2019-02-25 04:04] LABS: Anisocytosis Slight; Basophils # (A) 0.3 k/uL (0-0.2); Basophils % (A) 1 %; Eosinophils # (A) 0.2 k/uL (0-0.7); Eosinophils % (A) 0 %; Lymphocytes # (A) 1.1 k/uL (1.0-4.8); Lymphocytes % (A) 3 %; MCV 91.8 fL (80.0-100.0); Mean Platelet Volume 12.1; Monocytes # (A) 1.3 k/uL (0-1.0); Monocytes % (A) 3 %; Neutrophils # (A) 39.3 k/uL (1.3-7.7); Neutrophils % (A) 92 %; Platelet Count 180 k/uL (150-450); Poikilocytosis Slight; RBC 3.05 m/uL (4.30-5.90); RDW 17.5 % (11.5-15.5); WBC 42.6 k/uL (3.8-10.6)
[2019-02-25 04:26] LABS: HGB 9.8 gm/dL (13.0-17.5)
[2019-02-25 04:27] LABS: MCH 31.5 pg (25.0-35.0); MCHC 34.8 g/dL (31.0-37.0)
[2019-02-25] MEDS: HYDROCORTISONE SUCCINATE 100 MG/2 ML VIAL IV SCH ×3 (04:45→20:10)
[2019-02-25 04:49] LABS: ABG Base Excess -3.5 mmol/L; ABG HCO3 23 mmol/L (21-25); ABG Oxygen Saturation 97.6 % (94-97); ABG PCO2 46 mmHg (35-45); ABG PO2 155 mmHg (83-108); ABG TCO2 24 mmol/L (19-24)
[2019-02-25 05:24] LABS: Anion Gap 15 mmol/L; Carbon Dioxide 18 mmol/L (22-30); Chloride 92 mmol/L (98-107); Sodium 125 mmol/L (137-145)
[2019-02-25 05:27] LABS: Potassium 6.1 mmol/L (3.5-5.1)
[2019-02-25] MEDS ORDERED: ALBUTEROL NEBULIZED (CONC) 20 MG, SODIUM CHLORIDE 0.9% NEBULIZ 3 ML INHALATION ONE ×6 (06:02→06:45)
[2019-02-25] MEDS ORDERED: CALCIUM GLUCONATE 1 GM in SODIUM CHLORIDE 0.9% 100 ML IVPB ONE (06:03)
[2019-02-25] MEDS ORDERED: SODIUM BICARB 8.4% 50 ML SYR (1 MEQ/ML) IV ONE (06:03)
[2019-02-25] MEDS ORDERED: INSULIN REGULAR 100 UNIT/ML VIAL IV ONE (06:03)
[2019-02-25] MEDS ORDERED: DEXTROSE 50%-WATER 50 ML SYRINGE IVP STA (06:08)
--- NOTE | 2019-02-25 06:16 | XR ---
EXAMINATION TYPE: XR chest 1V portable DATE OF EXAM: 02/25/2019 HISTORY: pneumothorax. REFERENCE: Previous study dated 02/24/2019. FINDINGS: There are [address] in place. There is a small apical pneumothorax on the left. The patient is ET tube, NG tube and right internal jugular catheter remain in place unchanged in [place]. There is bibasilar airspace disease. There is a small left effusion. IMPRESSION: SMALL RESIDUAL LEFT APICAL PNEUMOTHORAX.
[2019-02-25 06:37] LABS: Glucose,Whole Blood 111 mg/dL (75-99)
[2019-02-25] MEDS: NICOTINE 21MG/24HR PATCH TRANSDERM SCH (06:58)
--- NOTE | 2019-02-25 08:21 | P.PN ---
Subjective Patient is seen in follow-up for acute kidney injury, currently hemodialysis dependent. He underwent hemodialysis every day this past week. Patient has persistent hyperkalemia despite daily hemodialysis. He was noted to have a CK level of greater than 160,000. He is currently on 12 mics of Levophed. Remains intubated and sedated. He is oliguric. Vital signs: Currently on vasopressors. He did have a fever of 105F yesterday. General: The patient appeared well nourished and normally developed. HEENT: Head exam is unremarkable. Neck is without jugular venous distension. LUNGS: Breath sounds decreased. HEART: Rate and Rhythm are regular. First and second heart sounds normal. No murmurs, rubs or gallops. ABDOMEN: Abdominal exam reveals normal bowel sounds. Non-tender and non- distended. No evidence of peritonitis. EXTREMITITES: Ischemic changes noted. Objective - Vital Signs Vital signs: Vital Signs Temp 95.7 F L 02/25/19 07:00 Pulse 81 02/25/19 07:26 Resp 40 H 02/25/19 07:00 BP 95/51 02/25/19 07:00 Pulse Ox 100 02/25/19 07:00 Intake & Output 02/24/19 02/25/19 02/25/19 18:59 06:59 18:59 Intake Total 8073.254 2413.233 136 Output Total 130 162 Balance 6268.828 0465.233 136 Weight 114.4 kg 117.6 kg Intake: IV 662 912 126 ACETAMINOPHEN IV (For NPO 100 ) 1,000 mg In Empty Bag 1 bag @ 400 mls/hr IVPB Q6HR PRN Rx#:[id number] ACETAMINOPHEN IV (For NPO 100 ) 1,000 mg In Empty Bag 1 bag @ 400 mls/hr IVPB Q6HR PRN Rx#:[id number] Calcium Gluconate 1 gm In 100 Sodium Chloride 0.9% 100 ml @ 100 mls/hr IVPB ONCE ONE Rx#:[id number] Calcium Gluconate 1 gm In 100 Sodium Chloride 0.9% 100 ml @ 100 mls/hr IVPB ONCE ONE Rx#:[id number] Calcium Gluconate 2 gm In 100 100 Sodium Chloride 0.9% 100 ml @ 100 mls/hr IVPB ONCE ONE Rx#:[id number] Clindamycin 900 mg In 50 50 Dextrose 5% in Water 50 ml @ 50 mls/hr IVPB Q8HR [facility] Rx#:[id number] D50 IV PUSH 100 Sodium Bicarbonate IV 200 PUSH Sodium Chloride 0.9% 1, 240 240 20 000 ml @ 20 mls/hr IV . Q24H [facility] Rx#:[id number] cefTRIAXone 2 gm In 50 Sodium Chloride 0.9% 50 ml @ 100 mls/hr IVPB Q24H [facility] Rx#:[id number] pressure bags 72 72 6 Intake, IV Titration 352.118 334.233 Amount Norepinephrine 32 mg In 67.079 34.233 Sodium Chloride 0.9% 218 ml @ 0.05 MCG/KG/MIN 2. 233 mls/hr IV .Q24H [facility] Rx#:[id number] Propofol 1,000 mg In 285.039 300 Empty Bag 1 bag @ Titrate IV .Q0M [facility] Rx#: [id number] Tube Feeding 136 110 10 Other 90 210 Output: Chest Tube Drainage 130 160 Chest Tube Left 130 160 Thora-Vent Left Upper Mid 0 0 -Clavicular Chest Urine 0 2 Other: Voiding Method Indwelling Catheter Indwelling Catheter ABP, PAP, CO, CI - Last Documented Arterial Blood Pressure 107/61 - Labs CBC & Chem 7: 02/25/19 03:30 02/25/19 03:30 Labs: Abnormal Lab Results - Last 24 Hours (Table) 02/24/19 02/24/19 02/24/19 Range/Units 04:20 08:31 12:18 WBC (3.8-10.6) k/uL RBC (4.30-5.90) m/uL Hgb (13.0-17.5) gm/dL Hct (39.0-53.0) % RDW (11.5-15.5) % Neutrophils # (1.3-7.7) k/uL Neutrophils # (Manual) 40.80 H (1.3-7.7) k/uL Monocytes # (0-1.0) k/uL Monocytes # (Manual) 1.80 H (0-1.0) k/uL Basophils # (0-0.2) k/uL ABG pH 7.27 L (7.35-7.45) ABG pCO2 50 H (35-45) mmHg ABG pO2 135 H (83-108) mmHg ABG O2 Saturation 97.5 H (94-97) % Sodium (137-145) mmol/L Potassium (3.5-5.1) mmol/L Chloride (98-107) mmol/L Carbon Dioxide (22-30) mmol/L BUN (9-20) mg/dL Creatinine (0.66-1.25) mg/dL Glucose (74-99) mg/dL POC Glucose (mg/dL) 124 H (75-99) mg/dL Calcium (8.4-10.2) mg/dL Creatine Kinase (55-170) U/L 02/24/19 02/24/19 02/24/19 Range/Units 16:35 17:40 17:45 WBC (3.8-10.6) k/uL RBC (4.30-5.90) m/uL Hgb (13.0-17.5) gm/dL Hct (39.0-53.0) % RDW (11.5-15.5) % Neutrophils # (1.3-7.7) k/uL Neutrophils # (Manual) (1.3-7.7) k/uL Monocytes # (0-1.0) k/uL Monocytes # (Manual) (0-1.0) k/uL Basophils # (0-0.2) k/uL ABG pH (7.35-7.45) ABG pCO2 (35-45) mmHg ABG pO2 (83-108) mmHg ABG O2 Saturation (94-97) % Sodium 127 L (137-145) mmol/L Potassium 7.0 H* 6.3 H* (3.5-5.1) mmol/L Chloride 94 L (98-107) mmol/L Carbon Dioxide 17 L (22-30) mmol/L BUN 41 H (9-20) mg/dL Creatinine 2.65 H (0.66-1.25) mg/dL Glucose 119 H (74-99) mg/dL POC Glucose (mg/dL) 218 H (75-99) mg/dL Calcium 5.4 L* (8.4-10.2) mg/dL Creatine Kinase (55-170) U/L 02/24/19 02/24/19 02/24/19 Range/Units 21:05 21:11 23:59 WBC (3.8-10.6) k/uL RBC (4.30-5.90) m/uL Hgb (13.0-17.5) gm/dL Hct (39.0-53.0) % RDW (11.5-15.5) % Neutrophils # (1.3-7.7) k/uL Neutrophils # (Manual) (1.3-7.7) k/uL Monocytes # (0-1.0) k/uL Monocytes # (Manual) (0-1.0) k/uL Basophils # (0-0.2) k/uL ABG pH (7.35-7.45) ABG pCO2 (35-45) mmHg ABG pO2 (83-108) mmHg ABG O2 Saturation (94-97) % Sodium (137-145) mmol/L Potassium 6.5 H* (3.5-5.1) mmol/L Chloride (98-107) mmol/L Carbon Dioxide (22-30) mmol/L BUN (9-20) mg/dL Creatinine (0.66-1.25) mg/dL Glucose (74-99) mg/dL POC Glucose (mg/dL) 166 H 174 H (75-99) mg/dL Calcium (8.4-10.2) mg/dL Creatine Kinase (55-170) U/L 02/25/19 02/25/19 02/25/19 Range/Units 00:44 01:20 03:30 WBC 42.6 H (3.8-10.6) k/uL RBC 3.05 L (4.30-5.90) m/uL Hgb 9.8 L (13.0-17.5) gm/dL Hct 28.0 L (39.0-53.0) % RDW 17.5 H (11.5-15.5) % Neutrophils # 39.3 H (1.3-7.7) k/uL Neutrophils # (Manual) (1.3-7.7) k/uL Monocytes # 1.3 H (0-1.0) k/uL Monocytes # (Manual) (0-1.0) k/uL Basophils # 0.3 H (0-0.2) k/uL ABG pH (7.35-7.45) ABG pCO2 (35-45) mmHg ABG pO2 (83-108) mmHg ABG O2 Saturation (94-97) % Sodium (137-145) mmol/L Potassium (3.5-5.1) mmol/L Chloride (98-107) mmol/L Carbon Dioxide (22-30) mmol/L BUN (9-20) mg/dL Creatinine (0.66-1.25) mg/dL Glucose (74-99) mg/dL POC Glucose (mg/dL) 175 H (75-99) mg/dL Calcium (8.4-10.2) mg/dL Creatine Kinase >180488 H* (55-170) U/L 02/25/19 02/25/19 02/25/19 Range/Units 03:30 04:46 06:25 WBC (3.8-10.6) k/uL RBC (4.30-5.90) m/uL Hgb (13.0-17.5) gm/dL Hct (39.0-53.0) % RDW (11.5-15.5) % Neutrophils # (1.3-7.7) k/uL Neutrophils # (Manual) (1.3-7.7) k/uL Monocytes # (0-1.0) k/uL Monocytes # (Manual) (0-1.0) k/uL Basophils # (0-0.2) k/uL ABG pH 7.30 L (7.35-7.45) ABG pCO2 46 H (35-45) mmHg ABG pO2 155 H (83-108) mmHg ABG O2 Saturation 97.6 H (94-97) % Sodium 125 L (137-145) mmol/L Potassium 6.1 H* (3.5-5.1) mmol/L Chloride 92 L (98-107) mmol/L Carbon Dioxide 18 L (22-30) mmol/L BUN (9-20) mg/dL Creatinine (0.66-1.25) mg/dL Glucose (74-99) mg/dL POC Glucose (mg/dL) 111 H (75-99) mg/dL Calcium (8.4-10.2) mg/dL Creatine Kinase (55-170) U/L Microbiology - Last 24 Hours (Table) 02/23/19 10:15 Blood Culture - Preliminary Blood No Growth after 24 hours 02/23/19 20:07 Gram Stain - Preliminary Sputum Sputum Culture - Preliminary Assessment and Plan Plan: Assessment: 1. Acute kidney injury, oliguric, secondary to ATN secondary to infection and rhabdomyolysis. Currently hemodialysis dependent. 2. Persistent hyperkalemia secondary to acute kidney injury, metabolic acidosis and rhabdomyolysis causing cell lysis. 3. Hyponatremia secondary to acute kidney injury. Patient is hypervolemic. 4. Hypocalcemia secondary to acute kidney injury and rhabdomyolysis. 5. Metabolic acidosis secondary to acute kidney injury. 6. Hyperphosphatemia secondary to acute kidney injury and rhabdomyolysis. 7. Influenza A. Plan: Hemodialysis today for 4 hours with low potassium and high calcium bath once catheter has been replaced. Discontinue Motrin. Add PhosLo. Overall prognosis guarded.
--- NOTE | 2019-02-25 09:23 | P.PN ---
Subjective Progress Note Date: 02/25/19 Principal diagnosis: Spontaneous left sided pneumothorax, acute respiratory failure secondary to influenza A and streptococcus pyogenes pneumonia, acute kidney injury secondary to acute tubular necrosis due to hypotension and sepsis, mild troponin elevation. History of CAD with prior stenting, hypertension, hyperlipidemia, chronic tobacco abuse. Thrombocytopenia. Rhabdomyolysis. POD #7 left chest thoravent placement x 2 and left thoracostomy tube placement POD #6 left femoral dialysis catheter placed by Dr. Barker POD #5 placement of second left thoracostomy tube for recurrent pneumothorax despite left thoracostomy tube in place The patient is currently laying in bed in the intensive care unit, still mechanically ventilated. Remains on levo. Chest tubes remain in place. Remains in normal sinus rhythm. Sedated on propofol. Continues to receive daily dialysis. Small left apical pneumothorax on today's CXR. Remains febrile, T- max overnight 105.3F. Remains on ceftriaxone, clindamycin, Tamiflu per Dr. Shipley. Blood and sputum culture from February 23 still pending, pleural fluid culture from February 18 negative. Objective - Vital Signs Vital signs: Vital Signs Temp 95.7 F L 02/25/19 07:00 Pulse 81 02/25/19 07:26 Resp 40 H 02/25/19 07:00 BP 95/51 02/25/19 07:00 Pulse Ox 100 02/25/19 07:00 Intake & Output 02/24/19 02/25/19 02/25/19 18:59 06:59 18:59 Intake Total 9733.511 1601.233 136 Output Total 130 162 Balance 5377.514 8291.233 136 Weight 114.4 kg 117.6 kg Intake: IV 662 912 126 ACETAMINOPHEN IV (For NPO 100 ) 1,000 mg In Empty Bag 1 bag @ 400 mls/hr IVPB Q6HR PRN Rx#:[id number] ACETAMINOPHEN IV (For NPO 100 ) 1,000 mg In Empty Bag 1 bag @ 400 mls/hr IVPB Q6HR PRN Rx#:[id number] Calcium Gluconate 1 gm In 100 Sodium Chloride 0.9% 100 ml @ 100 mls/hr IVPB ONCE ONE Rx#:[id number] Calcium Gluconate 1 gm In 100 Sodium Chloride 0.9% 100 ml @ 100 mls/hr IVPB ONCE ONE Rx#:[id number] Calcium Gluconate 2 gm In 100 100 Sodium Chloride 0.9% 100 ml @ 100 mls/hr IVPB ONCE ONE Rx#:[id number] Clindamycin 900 mg In 50 50 Dextrose 5% in Water 50 ml @ 50 mls/hr IVPB Q8HR [facility] Rx#:[id number] D50 IV PUSH 100 Sodium Bicarbonate IV 200 PUSH Sodium Chloride 0.9% 1, 240 240 20 000 ml @ 20 mls/hr IV . Q24H NI Rx#:[id number] cefTRIAXone 2 gm In 50 Sodium Chloride 0.9% 50 ml @ 100 mls/hr IVPB Q24H [facility] Rx#:[id number] pressure bags 72 72 6 Intake, IV Titration 352.118 334.233 Amount Norepinephrine 32 mg In 67.079 34.233 Sodium Chloride 0.9% 218 ml @ 0.05 MCG/KG/MIN 2. 233 mls/hr IV .Q24H [facility] Rx#:[id number] Propofol 1,000 mg In 285.039 300 Empty Bag 1 bag @ Titrate IV .Q0M [facility] Rx#: [id number] Tube Feeding 136 110 10 Other 90 210 Output: Chest Tube Drainage 130 160 Chest Tube Left 130 160 Thora-Vent Left Upper Mid 0 0 -Clavicular Chest Urine 0 2 Other: Voiding Method Indwelling Catheter Indwelling Catheter ABP, PAP, CO, CI - Last Documented Arterial Blood Pressure 107/61 - Constitutional General appearance: Present: no acute distress, obese - Respiratory Details: Lung sounds diminished bilaterally with coarse breath sounds in the bases. Respirations even, non-labored on mechanical ventilation. Current ventilator settings assist control mode, FiO2 50%, TV 450, RR 40, PEEP 8. 8.0 ETT present, 23 at the lip. Left thoravent to continuous wall suction, no drainage, no air leak. Left chest tube to continuous wall suction, 90 mL serous drainage overnight, 150 mL output in 24 hours, continuous air leak remains present. - Cardiovascular Details: S1/S2 present. Regular rate and rhythm, sinus rhythm on telemetry. Doppler peripheral pulses bilaterally. No edema present. SCDs present. Left radial arterial line, right internal jugular triple lumen central line present. - Gastrointestinal Gastrointestinal Comment(s): Abdomen soft, non-tender, slightly distended. Active bowel sounds present x 4 quadrants. OGT present, tube feeding infusing at 10 mL/hr. - Genitourinary Genitourinary Comment(s): Loo catheter present draining minimal urine. Left femoral temporary dialysis catheter being replaced. - Integumentary Integumentary Comment(s): Skin is cool, intact. Fluid blisters present to upper extremities. Bilateral lower extremities mottled with blue toes. - Psychiatric Psychiatric Comment(s): Currently sedated with propofol on mechanical ventilation. - Allied health notes Allied health notes reviewed: nursing - Labs CBC & Chem 7: 02/25/19 03:30 02/25/19 03:30 Labs: Abnormal Lab Results - Last 24 Hours (Table) 02/24/19 02/24/19 02/24/19 Range/Units 12:18 16:35 17:40 WBC (3.8-10.6) k/uL RBC (4.30-5.90) m/uL Hgb (13.0-17.5) gm/dL Hct (39.0-53.0) % RDW (11.5-15.5) % Neutrophils # (1.3-7.7) k/uL Monocytes # (0-1.0) k/uL Basophils # (0-0.2) k/uL ABG pH (7.35-7.45) ABG pCO2 (35-45) mmHg ABG pO2 (83-108) mmHg ABG O2 Saturation (94-97) % Sodium 127 L (137-145) mmol/L Potassium 7.0 H* 6.3 H* (3.5-5.1) mmol/L Chloride 94 L (98-107) mmol/L Carbon Dioxide 17 L (22-30) mmol/L BUN 41 H (9-20) mg/dL Creatinine 2.65 H (0.66-1.25) mg/dL Glucose 119 H (74-99) mg/dL POC Glucose (mg/dL) 124 H (75-99) mg/dL Calcium 5.4 L* (8.4-10.2) mg/dL Creatine Kinase (55-170) U/L 02/24/19 02/24/19 02/24/19 Range/Units 17:45 21:05 21:11 WBC (3.8-10.6) k/uL RBC (4.30-5.90) m/uL Hgb (13.0-17.5) gm/dL Hct (39.0-53.0) % RDW (11.5-15.5) % Neutrophils # (1.3-7.7) k/uL Monocytes # (0-1.0) k/uL Basophils # (0-0.2) k/uL ABG pH (7.35-7.45) ABG pCO2 (35-45) mmHg ABG pO2 (83-108) mmHg ABG O2 Saturation (94-97) % Sodium (137-145) mmol/L Potassium 6.5 H* (3.5-5.1) mmol/L Chloride (98-107) mmol/L Carbon Dioxide (22-30) mmol/L BUN (9-20) mg/dL Creatinine (0.66-1.25) mg/dL Glucose (74-99) mg/dL POC Glucose (mg/dL) 218 H 166 H (75-99) mg/dL Calcium (8.4-10.2) mg/dL Creatine Kinase (55-170) U/L 02/24/19 02/25/19 02/25/19 Range/Units 23:59 00:44 01:20 WBC (3.8-10.6) k/uL RBC (4.30-5.90) m/uL Hgb (13.0-17.5) gm/dL Hct (39.0-53.0) % RDW (11.5-15.5) % Neutrophils # (1.3-7.7) k/uL Monocytes # (0-1.0) k/uL Basophils # (0-0.2) k/uL ABG pH (7.35-7.45) ABG pCO2 (35-45) mmHg ABG pO2 (83-108) mmHg ABG O2 Saturation (94-97) % Sodium (137-145) mmol/L Potassium (3.5-5.1) mmol/L Chloride (98-107) mmol/L Carbon Dioxide (22-30) mmol/L BUN (9-20) mg/dL Creatinine (0.66-1.25) mg/dL Glucose (74-99) mg/dL POC Glucose (mg/dL) 174 H 175 H (75-99) mg/dL Calcium (8.4-10.2) mg/dL Creatine Kinase >754787 H* (55-170) U/L 02/25/19 02/25/19 02/25/19 Range/Units 03:30 03:30 04:46 WBC 42.6 H (3.8-10.6) k/uL RBC 3.05 L (4.30-5.90) m/uL Hgb 9.8 L (13.0-17.5) gm/dL Hct 28.0 L (39.0-53.0) % RDW 17.5 H (11.5-15.5) % Neutrophils # 39.3 H (1.3-7.7) k/uL Monocytes # 1.3 H (0-1.0) k/uL Basophils # 0.3 H (0-0.2) k/uL ABG pH 7.30 L (7.35-7.45) ABG pCO2 46 H (35-45) mmHg ABG pO2 155 H (83-108) mmHg ABG O2 Saturation 97.6 H (94-97) % Sodium 125 L (137-145) mmol/L Potassium 6.1 H* (3.5-5.1) mmol/L Chloride 92 L (98-107) mmol/L Carbon Dioxide 18 L (22-30) mmol/L BUN (9-20) mg/dL Creatinine (0.66-1.25) mg/dL Glucose (74-99) mg/dL POC Glucose (mg/dL) (75-99) mg/dL Calcium (8.4-10.2) mg/dL Creatine Kinase (55-170) U/L 02/25/19 Range/Units 06:25 WBC (3.8-10.6) k/uL RBC (4.30-5.90) m/uL Hgb (13.0-17.5) gm/dL Hct (39.0-53.0) % RDW (11.5-15.5) % Neutrophils # (1.3-7.7) k/uL Monocytes # (0-1.0) k/uL Basophils # (0-0.2) k/uL ABG pH (7.35-7.45) ABG pCO2 (35-45) mmHg ABG pO2 (83-108) mmHg ABG O2 Saturation (94-97) % Sodium (137-145) mmol/L Potassium (3.5-5.1) mmol/L Chloride (98-107) mmol/L Carbon Dioxide (22-30) mmol/L BUN (9-20) mg/dL Creatinine (0.66-1.25) mg/dL Glucose (74-99) mg/dL POC Glucose (mg/dL) 111 H (75-99) mg/dL Calcium (8.4-10.2) mg/dL Creatine Kinase (55-170) U/L Microbiology - Last 24 Hours (Table) 02/23/19 10:15 Blood Culture - Preliminary Blood No Growth after 24 hours 02/23/19 20:07 Gram Stain - Preliminary Sputum Sputum Culture - Preliminary - Imaging and Cardiology Chest x-ray: report reviewed, image reviewed Assessment and Plan Assessment: 1. Spontaneous left pneumothorax, status post thoravent and thoracostomy tube placement 2. Acute respiratory failure with influenza A and streptococcus pyrogenes pneumonia, ARDS 3. Acute kidney injury secondary to acute tubular necrosis, status post temporary dialysis placement with daily dialysis 4. Septic shock with lactic acidosis 5. Multisystem organ failure 6. Troponin elevation 7. History of CAD with prior stenting 8. History of hypertension, currently hypotensive on levo 9. Hyperlipidemia 10. Chronic tobacco dependance 11. Thrombocytopenia, HIT panel negative 12. Rhabdomyolysis Plan: 1. Continue left pleural chest tube to continuous wall suction, will monitor for resolution of air leak 2. Will monitor daily labs, x-rays 3. Wean ventilator when able. Ventilator management per pulmonology 4. Bronchodilators, steroids per pulmonology 5. Antibiotics per infectious disease. 6. GI/DVT prophylaxis with protonix, SCDs. 7. Avoid nephrotoxic agents. Continue hemodiaysis per nephrology. Wean levo as able. 8. Medical management of other comorbid conditions per primary care service. 9. More recommendations as patient progresses. Time with Patient: Greater than 30
[2019-02-25] MEDS: CHLORHEXIDINE GLUCONATE 15 ML CUP MUCOUS MEM SCH ×2 (09:45→21:56)
[2019-02-25] MEDS: PANTOPRAZOLE 40 MG/10 ML VIAL IVP SCH ×2 (09:45→22:47)
[2019-02-25] MEDS: CALCIUM CARBONATE 500 MG CHEWABLE PO SCH ×2 (09:46→22:46)
[2019-02-25] MEDS: ASPIRIN 81 MG PO SCH (09:46)
[2019-02-25] MEDS: OSELTAMIVIR 60 MG/10 ML ORAL SYRINGE PO SCH ×2 (09:46→21:52)
--- NOTE | 2019-02-25 09:50 | P.PN ---
Subjective Progress Note Date: 02/24/19 Principal diagnosis: Acute respiratory failure Spontaneous left-sided pneumothorax Influenza A/Streptococcus pneumonia Septic shock Multiorgan failure Spontaneous left sided pneumothorax, acute respiratory failure secondary to influenza A and streptococcus pyogenes pneumonia, acute kidney injury secondary to acute tubular necrosis due to hypotension and sepsis, mild troponin el evation. History of CAD with prior stenting, hypertension, hyperlipidemia, chronic tobacco abuse. Thrombocytopenia. POD #6 left chest thoravent placement x 2 and left thoracostomy tube placement POD #5 left femoral dialysis catheter placed by Dr. Barker POD #4 placement of second left thoracostomy tube for recurrent pneumothorax despite left thoracostomy tube in place The patient is currently laying in bed in the intensive care unit, still mechanically ventilated. Remains on levo, titrated up from yesterday. Chest tubes remain in place. Remains in normal sinus rhythm. Sedated on propofol. Received dialysis 4 days in a row, receiving again today to hyperkalemia. CXR this morning is essentially unchanged. Remains febrile. He had an episode of respiratory distress last night and was placed back on 100% FiO2 on the ventilator, currently weaned down to 50% FiO2. Objective - Vital Signs Vital signs: Vital Signs Temp 98.5 F 02/24/19 06:00 Pulse 92 02/24/19 07:20 Resp 40 H 02/24/19 07:00 BP 110/58 02/23/19 23:00 Pulse Ox 96 02/24/19 07:00 Intake & Output 02/23/19 02/24/19 02/24/19 18:59 06:59 18:59 Intake Total 5350.553 2122.643 26 Output Total 2009 Balance -520.086 6770.643 -4 Weight 114.4 kg Intake: IV 412 462 26 Clindamycin 900 mg In 100 50 Dextrose 5% in Water 50 ml @ 50 mls/hr IVPB Q8HR [facility] Rx#:[id number] Dextrose/water 50% 50 dextrose syringe Sodium Chloride 0.9% 1, 240 240 20 000 ml @ 20 mls/hr IV . Q24H NI Rx#:[id number] cefTRIAXone 2 gm In 50 Sodium Chloride 0.9% 50 ml @ 100 mls/hr IVPB Q24H [facility] Rx#:[id number] pressure bags 72 72 6 Intake, IV Titration 545.420 952.643 Amount ACETAMINOPHEN IV (For NPO 100 ) 1,000 mg In Empty Bag 1 bag @ 400 mls/hr IVPB ONCE ONE Rx#:[id number] ACETAMINOPHEN IV (For NPO 400 ) 1,000 mg In Empty Bag 1 bag @ 400 mls/hr IVPB Q6HR PRN Rx#:[id number] Norepinephrine 32 mg In 45.420 92.166 Sodium Chloride 0.9% 218 ml @ 0.05 MCG/KG/MIN 2. 233 mls/hr IV .Q24H [facility] Rx#:[id number] Propofol 1,000 mg In 400 460.477 Empty Bag 1 bag @ Titrate IV .Q0M [facility] Rx#: [id number] Tube Feeding 239 22 Other 90 Output: Chest Tube Drainage 3 30 Chest Tube Left 30 Thora-Vent Left Upper Mid 3 0 -Clavicular Chest Urine 10 7 0 Other 2000 Other: Voiding Method Indwelling Catheter Indwelling Catheter ABP, PAP, CO, CI - Last Documented Arterial Blood Pressure 102/49 - Exam HEENT: Anicteric conjunctiva are pale but moist nasal mucosa grossly intact without significant lesions, there is no thrush noted around the endotracheal tube. No evidence of bleeding Neck: The neck is supple without significant lymphadenopathy or thyromegaly. Lungs: There is symmetrical air entry however very coarse bronchial sounds are heard in all lung garsia and still amphoric sounds in the anterior aspect of the left chest where the Heart: Tachycardic no murmur is noted there is palpable subcutaneous emphysema along the anterior aspect of the shoulder and upper aspect of the chest above the clavicle Abdomen: Abdomen has few bowel sounds, it is soft minimally distended and can palpate no mass or organomegaly Extremities: The extremities have some generalized edema, hands and feet are cool to touch mild bluish discoloration is noted,but no necrosis or ulcerations are seen Neuro: Sedated paralyzed mechanically ventilated - Labs CBC & Chem 7: 02/25/19 03:30 02/25/19 03:30 Labs: Abnormal Lab Results - Last 24 Hours (Table) 02/23/19 02/23/19 02/23/19 Range/Units 18:14 18:14 21:30 WBC (3.8-10.6) k/uL RBC (4.30-5.90) m/uL Hgb (13.0-17.5) gm/dL Hct (39.0-53.0) % RDW (11.5-15.5) % Neutrophils # (Manual) (1.3-7.7) k/uL Monocytes # (Manual) (0-1.0) k/uL ABG pH (7.35-7.45) ABG pCO2 (35-45) mmHg ABG pO2 (83-108) mmHg ABG Total CO2 (19-24) mmol/L ABG O2 Saturation (94-97) % Sodium 129 L (137-145) mmol/L Potassium 6.8 H* 5.7 H (3.5-5.1) mmol/L Chloride 95 L (98-107) mmol/L Carbon Dioxide 20 L (22-30) mmol/L BUN 51 H (9-20) mg/dL Creatinine 3.88 H (0.66-1.25) mg/dL Glucose 101 H (74-99) mg/dL POC Glucose (mg/dL) 108 H (75-99) mg/dL Calcium 5.3 L* (8.4-10.2) mg/dL Phosphorus (2.5-4.5) mg/dL Total Bilirubin (0.2-1.3) mg/dL AST (17-59) U/L ALT (21-72) U/L Alkaline Phosphatase (38-126) U/L Total Protein (6.3-8.2) g/dL Albumin (3.5-5.0) g/dL 02/23/19 02/24/19 02/24/19 Range/Units 21:50 01:41 04:20 WBC 44.9 H (3.8-10.6) k/uL RBC 2.76 L (4.30-5.90) m/uL Hgb 8.8 L D (13.0-17.5) gm/dL Hct 26.0 L (39.0-53.0) % RDW 16.1 H (11.5-15.5) % Neutrophils # (Manual) 40.80 H (1.3-7.7) k/uL Monocytes # (Manual) 1.80 H (0-1.0) k/uL ABG pH (7.35-7.45) ABG pCO2 (35-45) mmHg ABG pO2 (83-108) mmHg ABG Total CO2 (19-24) mmol/L ABG O2 Saturation (94-97) % Sodium (137-145) mmol/L Potassium (3.5-5.1) mmol/L Chloride (98-107) mmol/L Carbon Dioxide (22-30) mmol/L BUN (9-20) mg/dL Creatinine (0.66-1.25) mg/dL Glucose (74-99) mg/dL POC Glucose (mg/dL) 119 H 152 H (75-99) mg/dL Calcium (8.4-10.2) mg/dL Phosphorus (2.5-4.5) mg/dL Total Bilirubin (0.2-1.3) mg/dL AST (17-59) U/L ALT (21-72) U/L Alkaline Phosphatase (38-126) U/L Total Protein (6.3-8.2) g/dL Albumin (3.5-5.0) g/dL 02/24/19 02/24/19 02/24/19 Range/Units 04:20 04:28 06:26 WBC (3.8-10.6) k/uL RBC (4.30-5.90) m/uL Hgb (13.0-17.5) gm/dL Hct (39.0-53.0) % RDW (11.5-15.5) % Neutrophils # (Manual) (1.3-7.7) k/uL Monocytes # (Manual) (0-1.0) k/uL ABG pH 7.25 L (7.35-7.45) ABG pCO2 53 H (35-45) mmHg ABG pO2 291 H (83-108) mmHg ABG Total CO2 25 H (19-24) mmol/L ABG O2 Saturation 99.5 H (94-97) % Sodium 128 L (137-145) mmol/L Potassium 6.5 H* (3.5-5.1) mmol/L Chloride 94 L (98-107) mmol/L Carbon Dioxide 18 L (22-30) mmol/L BUN 59 H (9-20) mg/dL Creatinine 4.15 H (0.66-1.25) mg/dL Glucose 138 H (74-99) mg/dL POC Glucose (mg/dL) 145 H (75-99) mg/dL Calcium 4.8 L* (8.4-10.2) mg/dL Phosphorus 12.2 H* (2.5-4.5) mg/dL Total Bilirubin 4.7 H (0.2-1.3) mg/dL AST 1056 H (17-59) U/L ALT 99 H (21-72) U/L Alkaline Phosphatase 230 H (38-126) U/L Total Protein 5.5 L (6.3-8.2) g/dL Albumin 2.5 L (3.5-5.0) g/dL 02/24/19 Range/Units 08:31 WBC (3.8-10.6) k/uL RBC (4.30-5.90) m/uL Hgb (13.0-17.5) gm/dL Hct (39.0-53.0) % RDW (11.5-15.5) % Neutrophils # (Manual) (1.3-7.7) k/uL Monocytes # (Manual) (0-1.0) k/uL ABG pH 7.27 L (7.35-7.45) ABG pCO2 50 H (35-45) mmHg ABG pO2 135 H (83-108) mmHg ABG Total CO2 (19-24) mmol/L ABG O2 Saturation 97.5 H (94-97) % Sodium (137-145) mmol/L Potassium (3.5-5.1) mmol/L Chloride (98-107) mmol/L Carbon Dioxide (22-30) mmol/L BUN (9-20) mg/dL Creatinine (0.66-1.25) mg/dL Glucose (74-99) mg/dL POC Glucose (mg/dL) (75-99) mg/dL Calcium (8.4-10.2) mg/dL Phosphorus (2.5-4.5) mg/dL Total Bilirubin (0.2-1.3) mg/dL AST (17-59) U/L ALT (21-72) U/L Alkaline Phosphatase (38-126) U/L Total Protein (6.3-8.2) g/dL Albumin (3.5-5.0) g/dL Microbiology - Last 24 Hours (Table) 02/23/19 20:07 Gram Stain - Preliminary Sputum Sputum Culture - Preliminary Assessment and Plan Assessment: 1. Spontaneous left pneumothorax, status post thoravent and thoracostomy tube placement - Continue left pleural chest tube to continuous wall suction, will monitor for resolution of air leak - Will monitor daily labs, x-rays 2. Acute respiratory failure with influenza A and streptococcus pyrogenes pneumonia, ARDS - Wean ventilator when able. Ventilator management per pulmonology - Bronchodilators, steroids per pulmonology - Antibiotics per infectious disease. 3. Acute kidney injury secondary to acute tubular necrosis, status post temporary dialysis placement with daily dialysis - Avoid nephrotoxic agents. Continue hemodiaysis per nephrology. Wean levo as able. 4. Septic shock with lactic acidosis 5. Multisystem organ failure; sec to septic shock 6. Troponin elevation; continue with telemetry monitoring - History of CAD with prior stenting 7. History of hypertension, currently hypotensive on levo 8. Hyperlipidemia; not on statin therapy due to ALLERGIES to multiple medications; Lipitor, pravastatin, Crestor and simvastatin 9. Chronic tobacco dependance; nicotine patch 10. Hyperglycemia - Continue with Levemir 8 units subcu daily at bedtime with insulin sliding scale DVT prophylaxis; SCDs only due to thrombocytopenia CODE STATUS; full code Time with Patient: Greater than 30
--- NOTE | 2019-02-25 10:56 | PN ---
PROGRESS NOTE DATE OF SERVICE: 02/25/2019.. A 63-year-old male admitted back on February 16. He was initially admitted with a diagnosis of acute respiratory failure with hypoxemia secondary to influenza infection and Streptococcus pyogenes pneumonia. He subsequently developed acute lung injury and acute respiratory distress syndrome and required intubation and mechanical ventilation. He has been ventilated since. In addition, at that time, he developed left-sided pneumothorax and required two Thora-Vents on the left and 2 chest tubes on the left. A second chest tube was placed by myself in response to a tension pneumothorax. He is still on the ventilator. We have been speaking to the family each day. His overall prognosis remains very guarded. He is on the volume assist-control mode rate of 40, tidal volume 450, FiO2 50% to be dropped to 40%, PEEP of 8 to be dropped to 5. Arterial blood gases on AC 40, 450, 50%, PEEP of 8 show a PO2 of 155 and pCO2 46 and a pH is 7.30. This blood gas is consistent with a mild respiratory acidosis. He remains on norepinephrine at 14 mcg/minute, Diprivan at 40 mcg/kg per per minute, 0.9 at 20 mL an hour and Nepro at 10 with a goal of 10 mL an hour. His chest x-ray shows a very small left pneumothorax. Lactulose has been discontinued. He is going to have a hemodialysis catheter replaced today. Last night, he had issues with fever. He was up to 105. He was treated with Tylenol, Motrin and cooling blankets and ice packs. Current vital signs are reviewed, temperature 95.7, heart rate 81, respiratory rate 40, blood pressure 95/51 with a mean of 65, saturations are 100%. Central venous pressure is 12. Appears in no acute distress. Currently sedated. HEENT examination is grossly unremarkable. There is an orally placed endotracheal tube. Neck is supple. Full range of motion. No adenopathy or thyromegaly. Neck veins are flat. Cardiovascular examination reveals regular rhythm and rate. Heart rate mid 80s. S1, S2 normal. Heart sounds are distant. Lungs reveal coarse rhonchi throughout. Breath sounds are slightly diminished on the left. No wheezes. No crackles. Abdomen is soft. Bowel sounds are heard. Extremities are intact. There is significant acrocyanosis, mottling, and livedo reticularis. Skin is otherwise normal, other than changes mentioned above. Neurologic examination is difficult to assess given his level of sedation. Microbiology is negative other than the initial Gram stain on February 17 showing strep pyogenes. LAB: Values are reviewed. White count 42.6, hemoglobin 9.8, hematocrit 28, platelet count 180,000. Sodium 125, potassium 6.1, chloride 92, CO2 is 18. Anion gap is 15. His creatine kinase is greater than 660,000. His C diff studies are negative. His chest x-ray from February 25 shows residual left apical pneumothorax. There is some bibasilar atelectasis or infiltrate. Medications are reviewed. ASSESSMENT: 1. Acute hypoxemic respiratory failure requiring intubation and mechanical ventilation on February 17, 2019 with development of acute respiratory distress syndrome (ARDS), secondary to sepsis, both from influenza and Streptococcus pyogenes. .. 2. Acute septic shock secondary to influenza, complicated by Streptococcus pyogenes pneumonia. 3. Recurrent left-sided pneumothorax status post Thora-Vent x2 and left-sided chest tube x2, the second left-sided chest tube for the purposes of relief of tension pneumothorax. 4. Acute pneumonia secondary to Streptococcus pyogenes. 5. Acute sepsis/septic shock. 6. Multiorgan system failure. 7. Acute kidney injury secondary to ATN, requiring hemodialysis. 8. History of coronary artery disease with previous stent placement. 9. Rhabdomyolysis. 10.Profound metabolic acidosis secondary to both shock and renal failure, somewhat improved. 11.Fluid overload. 12.Elevated troponins, likely reflecting supply-demand mismatch. PLAN: Overall, the patient's condition remains very guarded. I have had ongoing discussions with the . She understands the predicament that her is in. On a positive note, his oxygenation is improved. We are going to drop the FiO2 from 50% to 40% and drop the Peep from 8 to 5. Chest x-ray looks relatively stable save for a small left apical pneumothorax. C. diff studies were negative. Will discontinue the lactulose. His temperature has been dealt with. His Levophed requirements relatively low at 14 mcg/minute. He remains on Diprivan. Additional recommendations and suggestions are forthcoming. A new hemodialysis catheter today. Critical care time is 37 minutes. MMODL / IJN: [id number] /
[2019-02-25] MEDS: CALCIUM ACETATE 667 MG CAP PO SCH ×2 (11:45→18:11)
[2019-02-25] MEDS: SODIUM CHLORIDE 0.9% 1,000 ML IV SCH (11:46)
[2019-02-25 12:14] LABS: Glucose,Whole Blood 206 mg/dL (75-99)
--- NOTE | 2019-02-25 13:08 | OP ---
OPERATIVE REPORT This patient has acute chronic failure. Patient had a dialysis catheter placed in the past in the left groin. I was called in, the catheter is not working. Left groin was prepped and draped in a sterile manner. The guidewire was passed through the catheter. Catheter was removed and placed a new dialysis catheter, flushed with heparin saline and hep-locked and secured with 3-0 nylon. Dressing applied. Patient tolerated the procedure well. The tip of the catheter was sent for culture and sensitivity. MMODL / IJN: [id number] /
[2019-02-25] MEDS: NOREPINEPHRINE 32 MG in SODIUM CHLORIDE 0.9% 218 ML IV SCH (15:37)
[2019-02-25] MEDS: ACETAMINOPHEN IV (For NPO) 1,000 MG in EMPTY BAG 1 BAG IVPB PRN (16:44)
[2019-02-25] MEDS: HYDROmorphone 1 MG/ML 1 ML SYRINGE IVP PRN ×2 (16:58→22:52)
[2019-02-25 18:27] LABS: Glucose,Whole Blood 119 mg/dL (75-99)
[2019-02-25] MEDS: INSULIN DETEMIR (LEVEMIR) 100 UNIT/ML SYR SQ SCH (21:53)
[2019-02-25 23:47] LABS: Glucose,Whole Blood 147 mg/dL (75-99)
[2019-02-26] MEDS: PROPOFOL 1,000 MG in EMPTY BAG 1 BAG IV SCH ×9 (00:24→22:35)
[2019-02-26] MEDS: CLINDAMYCIN 900 MG in DEXTROSE 5% IN WATER 50 ML IVPB SCH ×2 (00:25)
[2019-02-26] MEDS: METOCLOPRAMIDE 5 MG/ML 2 ML VIAL IVP SCH ×2 (00:31→06:37)
[2019-02-26] MEDS: INSULIN ASPART (NovoLOG) 100 UNIT/ML VIAL SQ SCH ×4 (00:32→18:11)
[2019-02-26] MEDS: HYDROmorphone 1 MG/ML 1 ML SYRINGE IVP PRN ×4 (02:05→22:35)
[2019-02-26] MEDS: HYDROCORTISONE SUCCINATE 100 MG/2 ML VIAL IV SCH ×3 (03:17→20:03)
[2019-02-26] MEDS: ARTIFICIAL TEARS-HYPROMELLOSE DROPS 15 ML BTL BOTH EYES SCH ×6 (03:17→22:38)
[2019-02-26] MEDS: IPRATROPIUM-ALBUTEROL 3 ML NEB INHALATION SCH ×6 (03:21→22:52)
[2019-02-26 03:51] LABS: Anisocytosis Slight; HCT 26.6 % (39.0-53.0); Mean Platelet Volume 12.2; Platelet Count 194 k/uL (150-450); Poikilocytosis Slight; RBC 2.93 m/uL (4.30-5.90); WBC 41.6 k/uL (3.8-10.6)
[2019-02-26 03:57] LABS: HGB 9.3 gm/dL (13.0-17.5); MCH 31.3 pg (25.0-35.0); MCHC 34.9 g/dL (31.0-37.0)
[2019-02-26 04:02] LABS: Potassium 4.8 mmol/L (3.5-5.1)
[2019-02-26 04:40] LABS: Albumin 2.3 g/dL (3.5-5.0); Magnesium 2.2 mg/dL (1.6-2.3); Phosphorus 6.6 mg/dL (2.5-4.5); Total Bilirubin 3.7 mg/dL (0.2-1.3); Total Protein 5.3 g/dL (6.3-8.2)
[2019-02-26 05:14] LABS: ABG Base Excess -0.2 mmol/L; ABG HCO3 25 mmol/L (21-25); ABG Oxygen Saturation 90.5 % (94-97); ABG PCO2 47 mmHg (35-45); ABG PH 7.35 (7.35-7.45); ABG PO2 66 mmHg (83-108); ABG TCO2 27 mmol/L (19-24)
[2019-02-26 05:19] LABS: Band Neutrophils % 6 %; Lymphocytes # (M) 0.83 k/uL (1.0-4.8); Monocytes # (M) 0.42 k/uL (0-1.0); Neutrophils % (M) 93 %; Nucleated Red Blood Cells 0 /100 WBC (0-0); Total Cells Counted 200
[2019-02-26 05:21] LABS: Polychromasia Present
[2019-02-26 05:23] LABS: Large Platelets Present
[2019-02-26 05:24] LABS: Toxic Vacuolation Present
[2019-02-26] MEDS ORDERED: CALCIUM GLUCONATE 2 GM in SODIUM CHLORIDE 0.9% 100 ML IVPB ONE (05:30)
[2019-02-26 06:02] LABS: Glucose,Whole Blood 148 mg/dL (75-99)
--- NOTE | 2019-02-26 06:09 | XR ---
EXAMINATION TYPE: XR chest 1V portable DATE OF EXAM: 02/26/2019 HISTORY: pneumothorax. REFERENCE: Previous study dated 02/25/2019. FINDINGS: The patient is ET tube and NG tube remain in place, unchanged in appearance. There is a rig ht internal jugular line in place. There are 2 left [address] drains in place. No definite pneumothorax is seen at this time. There continues to be bibasilar airspace disease. The heart is not enlarged. T here are small, bilateral effusions. IMPRESSION: NO RESIDUAL PNEUMOTHORAX IS SEEN AT THIS TIME.
[2019-02-26] MEDS: CALCIUM ACETATE 667 MG CAP PO SCH ×3 (06:37→18:00)
--- NOTE | 2019-02-26 08:05 | P.PN ---
Subjective Patient is seen in follow-up for acute kidney injury, currently hemodialysis dependent. He underwent hemodialysis everyday this past week. Patient has persistent hyperkalemia despite daily hemodialysis. He was noted to have a CK level of greater than 160,000. He is currently on 16 mics of Levophed. Remains intubated and sedated. He is oliguric. Dialysis catheter was exchanged yesterday. Potassium level 4.8 today. Vital signs: Currently on vasopressors. He did have a fever of 105F yesterday. General: The patient appeared well nourished and normally developed. HEENT: Head exam is unremarkable. Neck is without jugular venous distension. LUNGS: Breath sounds decreased. HEART: Rate and Rhythm are regular. First and second heart sounds normal. No murmurs, rubs or gallops. ABDOMEN: Abdominal exam reveals normal bowel sounds. Non-tender and non- distended. No evidence of peritonitis. EXTREMITITES: Ischemic changes noted. Objective - Vital Signs Vital signs: Vital Signs Temp 102 F H 02/26/19 06:00 Pulse 92 02/26/19 07:51 Resp 42 H 02/26/19 06:00 BP 95/51 02/25/19 07:00 Pulse Ox 98 02/26/19 06:00 Intake & Output 02/25/19 02/26/19 02/26/19 18:59 06:59 18:59 Intake Total 2096.566 1234.221 Output Total 0 140 Balance 2096.566 1094.221 Weight 119.5 kg Intake: IV 1400 562 ACETAMINOPHEN IV (For NPO 1000 ) 1,000 mg In Empty Bag 1 bag @ 400 mls/hr IVPB Q6HR PRN Rx#:[id number] Calcium Gluconate 1 gm In 100 Sodium Chloride 0.9% 100 ml @ 100 mls/hr IVPB ONCE ONE Rx#:[id number] Calcium Gluconate 2 gm In 100 Sodium Chloride 0.9% 100 ml @ 100 mls/hr IVPB ONCE ONE Rx#:[id number] Clindamycin 900 mg In 100 Dextrose 5% in Water 50 ml @ 50 mls/hr IVPB Q8HR [facility] Rx#:[id number] Sodium Chloride 0.9% 1, 240 240 000 ml @ 20 mls/hr IV . Q24H [facility] Rx#:[id number] cefTRIAXone 2 gm In 50 Sodium Chloride 0.9% 50 ml @ 100 mls/hr IVPB Q24H [facility] Rx#:[id number] pressure bags 60 72 Intake, IV Titration 486.566 392.221 Amount Norepinephrine 32 mg In 205.571 Sodium Chloride 0.9% 218 ml @ 0.05 MCG/KG/MIN 2. 233 mls/hr IV .Q24H [facility] Rx#:[id number] Propofol 1,000 mg In 280.995 392.221 Empty Bag 1 bag @ Titrate IV .Q0M [facility] Rx#: [id number] Tube Feeding 120 100 Other 90 180 Output: Chest Tube Drainage 0 140 Chest Tube Left 140 Thora-Vent Left Upper Mid 0 -Clavicular Chest Urine 0 0 Other: Voiding Method Indwelling Catheter Indwelling Catheter ABP, PAP, CO, CI - Last Documented Arterial Blood Pressure 87/50 - Labs CBC & Chem 7: 02/26/19 03:30 02/26/19 03:30 Labs: Abnormal Lab Results - Last 24 Hours (Table) 02/25/19 02/25/19 02/25/19 Range/Units 09:30 12:03 18:16 WBC (3.8-10.6) k/uL RBC (4.30-5.90) m/uL Hgb (13.0-17.5) gm/dL Hct (39.0-53.0) % RDW (11.5-15.5) % Neutrophils # (Manual) (1.3-7.7) k/uL Lymphocytes # (Manual) (1.0-4.8) k/uL ABG pCO2 (35-45) mmHg ABG pO2 (83-108) mmHg ABG Total CO2 (19-24) mmol/L ABG O2 Saturation (94-97) % Sodium (137-145) mmol/L Potassium 5.9 H (3.5-5.1) mmol/L Chloride (98-107) mmol/L Carbon Dioxide (22-30) mmol/L BUN (9-20) mg/dL Creatinine (0.66-1.25) mg/dL Glucose (74-99) mg/dL POC Glucose (mg/dL) 206 H 119 H (75-99) mg/dL Calcium (8.4-10.2) mg/dL Ionized Calcium Ann (4.5-5.3) mg/dL Phosphorus (2.5-4.5) mg/dL Total Bilirubin (0.2-1.3) mg/dL AST (17-59) U/L ALT (21-72) U/L Alkaline Phosphatase (38-126) U/L Total Protein (6.3-8.2) g/dL Albumin (3.5-5.0) g/dL 02/25/19 02/26/19 02/26/19 Range/Units 23:35 03:30 03:30 WBC 41.6 H (3.8-10.6) k/uL RBC 2.93 L (4.30-5.90) m/uL Hgb 9.3 L (13.0-17.5) gm/dL Hct 26.6 L (39.0-53.0) % RDW 18.0 H (11.5-15.5) % Neutrophils # (Manual) 41.10 H (1.3-7.7) k/uL Lymphocytes # (Manual) 0.83 L (1.0-4.8) k/uL ABG pCO2 (35-45) mmHg ABG pO2 (83-108) mmHg ABG Total CO2 (19-24) mmol/L ABG O2 Saturation (94-97) % Sodium 127 L (137-145) mmol/L Potassium (3.5-5.1) mmol/L Chloride 94 L (98-107) mmol/L Carbon Dioxide 20 L (22-30) mmol/L BUN 51 H (9-20) mg/dL Creatinine 3.05 H (0.66-1.25) mg/dL Glucose 144 H (74-99) mg/dL POC Glucose (mg/dL) 147 H (75-99) mg/dL Calcium 5.0 L* (8.4-10.2) mg/dL Ionized Calcium Ann (4.5-5.3) mg/dL Phosphorus 6.6 H (2.5-4.5) mg/dL Total Bilirubin 3.7 H (0.2-1.3) mg/dL AST 1306 H (17-59) U/L ALT 182 H (21-72) U/L Alkaline Phosphatase 279 H (38-126) U/L Total Protein 5.3 L (6.3-8.2) g/dL Albumin 2.3 L (3.5-5.0) g/dL 02/26/19 02/26/19 02/26/19 Range/Units 05:08 05:40 05:50 WBC (3.8-10.6) k/uL RBC (4.30-5.90) m/uL Hgb (13.0-17.5) gm/dL Hct (39.0-53.0) % RDW (11.5-15.5) % Neutrophils # (Manual) (1.3-7.7) k/uL Lymphocytes # (Manual) (1.0-4.8) k/uL ABG pCO2 47 H (35-45) mmHg ABG pO2 66 L (83-108) mmHg ABG Total CO2 27 H (19-24) mmol/L ABG O2 Saturation 90.5 L (94-97) % Sodium (137-145) mmol/L Potassium (3.5-5.1) mmol/L Chloride (98-107) mmol/L Carbon Dioxide (22-30) mmol/L BUN (9-20) mg/dL Creatinine (0.66-1.25) mg/dL Glucose (74-99) mg/dL POC Glucose (mg/dL) 148 H (75-99) mg/dL Calcium (8.4-10.2) mg/dL Ionized Calcium Ann 2.9 L* (4.5-5.3) mg/dL Phosphorus (2.5-4.5) mg/dL Total Bilirubin (0.2-1.3) mg/dL AST (17-59) U/L ALT (21-72) U/L Alkaline Phosphatase (38-126) U/L Total Protein (6.3-8.2) g/dL Albumin (3.5-5.0) g/dL Microbiology - Last 24 Hours (Table) 02/23/19 10:15 Blood Culture - Preliminary Blood No Growth after 48 hours 02/23/19 20:07 Gram Stain - Preliminary Sputum Sputum Culture - Preliminary Freda albicans Assessment and Plan Plan: Assessment: 1. Acute kidney injury, oliguric, secondary to ATN secondary to infection and rhabdomyolysis. Currently hemodialysis dependent. 2. Persistent hyperkalemia secondary to acute kidney injury, metabolic acidosis and rhabdomyolysis causing cell lysis. Better. 3. Hyponatremia secondary to acute kidney injury. Patient is hypervolemic. 4. Hypocalcemia secondary to acute kidney injury and rhabdomyolysis. Corrected calcium is about 6.4. 5. Metabolic acidosis secondary to acute kidney injury. 6. Hyperphosphatemia secondary to acute kidney injury and rhabdomyolysis. Better. 7. Influenza A. Plan: Hemodialysis tomorrow for 4 hours with low potassium and high calcium bath. Discontinues Motrin. Maintain PhosLo. 2 g of IV calcium today. Overall prognosis guarded.
[2019-02-26] MEDS: PANTOPRAZOLE 40 MG/10 ML VIAL IVP SCH ×2 (08:35→20:00)
--- NOTE | 2019-02-26 08:44 | P.PN ---
Subjective Progress Note Date: 02/26/19 Principal diagnosis: Spontaneous left sided pneumothorax, acute respiratory failure secondary to influenza A and streptococcus pyogenes pneumonia, acute kidney injury secondary to acute tubular necrosis due to hypotension and sepsis, mild troponin elevation. History of CAD with prior stenting, hypertension, hyperlipidemia, chronic tobacco abuse. Thrombocytopenia. Rhabdomyolysis. POD #8 left chest thoravent placement x 2 and left thoracostomy tube placement POD #7 left femoral dialysis catheter placed by Dr. Barker POD #6 placement of second left thoracostomy tube for recurrent pneumothorax despite left thoracostomy tube in place The patient is currently laying in bed in the intensive care unit, still mechanically ventilated. Remains on levo. Chest tubes remain in place. Remains in normal sinus rhythm. Sedated on propofol. Has received daily dialysis. No pneumothorax on today's CXR. Remains febrile, T-max overnight 103.8F. Remains on Tamiflu per Dr. Shipley, ceftriaxone, clindamycin discontinued. Blood and sputum culture from February 23 still pending although sputum culture reporting preliminary Freda, pleural fluid culture from February 18 negative. Objective - Vital Signs Vital signs: Vital Signs Temp 102 F H 02/26/19 06:00 Pulse 98 02/26/19 08:07 Resp 42 H 02/26/19 06:00 BP 95/51 02/25/19 07:00 Pulse Ox 98 02/26/19 06:00 Intake & Output 02/25/19 02/26/19 02/26/19 18:59 06:59 18:59 Intake Total 2096.566 1234.221 Output Total 0 140 Balance 2096.566 1094.221 Weight 119.5 kg Intake: IV 1400 562 ACETAMINOPHEN IV (For NPO 1000 ) 1,000 mg In Empty Bag 1 bag @ 400 mls/hr IVPB Q6HR PRN Rx#:[id number] Calcium Gluconate 1 gm In 100 Sodium Chloride 0.9% 100 ml @ 100 mls/hr IVPB ONCE ONE Rx#:[id number] Calcium Gluconate 2 gm In 100 Sodium Chloride 0.9% 100 ml @ 100 mls/hr IVPB ONCE ONE Rx#:[id number] Clindamycin 900 mg In 100 Dextrose 5% in Water 50 ml @ 50 mls/hr IVPB Q8HR [facility] Rx#:[id number] Sodium Chloride 0.9% 1, 240 240 000 ml @ 20 mls/hr IV . Q24H [facility] Rx#:[id number] cefTRIAXone 2 gm In 50 Sodium Chloride 0.9% 50 ml @ 100 mls/hr IVPB Q24H [facility] Rx#:[id number] pressure bags 60 72 Intake, IV Titration 486.566 392.221 Amount Norepinephrine 32 mg In 205.571 Sodium Chloride 0.9% 218 ml @ 0.05 MCG/KG/MIN 2. 233 mls/hr IV .Q24H [facility] Rx#:[id number] Propofol 1,000 mg In 280.995 392.221 Empty Bag 1 bag @ Titrate IV .Q0M [facility] Rx#: [id number] Tube Feeding 120 100 Other 90 180 Output: Chest Tube Drainage 0 140 Chest Tube Left 140 Thora-Vent Left Upper Mid 0 -Clavicular Chest Urine 0 0 Other: Voiding Method Indwelling Catheter Indwelling Catheter ABP, PAP, CO, CI - Last Documented Arterial Blood Pressure 87/50 - Constitutional General appearance: Present: no acute distress - Respiratory Details: Lung sounds diminished bilaterally with coarse breath sounds in the bases. Respirations even, non-labored on mechanical ventilation. Current ventilator settings assist control mode, FiO2 40%, TV 450, RR 40, PEEP 5. 8.0 ETT present, 23 at the lip. Left thoravent to continuous wall suction, no drainage, no air leak. Left chest tube to continuous wall suction, 90 mL serous drainage overnight, 150 mL output in 24 hours, continuous air leak remains present although with less aggressiveness this morning. - Cardiovascular Details: S1/S2 present. Regular rate and rhythm, sinus rhythm on telemetry. Doppler peripheral pulses bilaterally. No edema present. SCDs present. Left radial arterial line, right internal jugular triple lumen central line present. - Gastrointestinal Gastrointestinal Comment(s): Abdomen soft, non-tender, slightly distended. Active bowel sounds present x 4 quadrants. OGT present, tube feeding infusing at 10 mL/hr. - Genitourinary Genitourinary Comment(s): Loo catheter present draining no urine. Left femoral temporary dialysis catheter present. - Integumentary Integumentary Comment(s): Skin is cool, intact. Fluid blisters present to upper extremities. Bilateral lower extremities mottled with blue toes. - Psychiatric Psychiatric Comment(s): Currently sedated with propofol on mechanical ventilation. - Allied health notes Allied health notes reviewed: nursing - Labs CBC & Chem 7: 02/26/19 03:30 02/26/19 03:30 Labs: Abnormal Lab Results - Last 24 Hours (Table) 02/25/19 02/25/19 02/25/19 Range/Units 09:30 12:03 18:16 WBC (3.8-10.6) k/uL RBC (4.30-5.90) m/uL Hgb (13.0-17.5) gm/dL Hct (39.0-53.0) % RDW (11.5-15.5) % Neutrophils # (Manual) (1.3-7.7) k/uL Lymphocytes # (Manual) (1.0-4.8) k/uL ABG pCO2 (35-45) mmHg ABG pO2 (83-108) mmHg ABG Total CO2 (19-24) mmol/L ABG O2 Saturation (94-97) % Sodium (137-145) mmol/L Potassium 5.9 H (3.5-5.1) mmol/L Chloride (98-107) mmol/L Carbon Dioxide (22-30) mmol/L BUN (9-20) mg/dL Creatinine (0.66-1.25) mg/dL Glucose (74-99) mg/dL POC Glucose (mg/dL) 206 H 119 H (75-99) mg/dL Calcium (8.4-10.2) mg/dL Ionized Calcium Ann (4.5-5.3) mg/dL Phosphorus (2.5-4.5) mg/dL Total Bilirubin (0.2-1.3) mg/dL AST (17-59) U/L ALT (21-72) U/L Alkaline Phosphatase (38-126) U/L Total Protein (6.3-8.2) g/dL Albumin (3.5-5.0) g/dL 02/25/19 02/26/19 02/26/19 Range/Units 23:35 03:30 03:30 WBC 41.6 H (3.8-10.6) k/uL RBC 2.93 L (4.30-5.90) m/uL Hgb 9.3 L (13.0-17.5) gm/dL Hct 26.6 L (39.0-53.0) % RDW 18.0 H (11.5-15.5) % Neutrophils # (Manual) 41.10 H (1.3-7.7) k/uL Lymphocytes # (Manual) 0.83 L (1.0-4.8) k/uL ABG pCO2 (35-45) mmHg ABG pO2 (83-108) mmHg ABG Total CO2 (19-24) mmol/L ABG O2 Saturation (94-97) % Sodium 127 L (137-145) mmol/L Potassium (3.5-5.1) mmol/L Chloride 94 L (98-107) mmol/L Carbon Dioxide 20 L (22-30) mmol/L BUN 51 H (9-20) mg/dL Creatinine 3.05 H (0.66-1.25) mg/dL Glucose 144 H (74-99) mg/dL POC Glucose (mg/dL) 147 H (75-99) mg/dL Calcium 5.0 L* (8.4-10.2) mg/dL Ionized Calcium Ann (4.5-5.3) mg/dL Phosphorus 6.6 H (2.5-4.5) mg/dL Total Bilirubin 3.7 H (0.2-1.3) mg/dL AST 1306 H (17-59) U/L ALT 182 H (21-72) U/L Alkaline Phosphatase 279 H (38-126) U/L Total Protein 5.3 L (6.3-8.2) g/dL Albumin 2.3 L (3.5-5.0) g/dL 02/26/19 02/26/19 02/26/19 Range/Units 05:08 05:40 05:50 WBC (3.8-10.6) k/uL RBC (4.30-5.90) m/uL Hgb (13.0-17.5) gm/dL Hct (39.0-53.0) % RDW (11.5-15.5) % Neutrophils # (Manual) (1.3-7.7) k/uL Lymphocytes # (Manual) (1.0-4.8) k/uL ABG pCO2 47 H (35-45) mmHg ABG pO2 66 L (83-108) mmHg ABG Total CO2 27 H (19-24) mmol/L ABG O2 Saturation 90.5 L (94-97) % Sodium (137-145) mmol/L Potassium (3.5-5.1) mmol/L Chloride (98-107) mmol/L Carbon Dioxide (22-30) mmol/L BUN (9-20) mg/dL Creatinine (0.66-1.25) mg/dL Glucose (74-99) mg/dL POC Glucose (mg/dL) 148 H (75-99) mg/dL Calcium (8.4-10.2) mg/dL Ionized Calcium Ann 2.9 L* (4.5-5.3) mg/dL Phosphorus (2.5-4.5) mg/dL Total Bilirubin (0.2-1.3) mg/dL AST (17-59) U/L ALT (21-72) U/L Alkaline Phosphatase (38-126) U/L Total Protein (6.3-8.2) g/dL Albumin (3.5-5.0) g/dL Microbiology - Last 24 Hours (Table) 02/23/19 10:15 Blood Culture - Preliminary Blood No Growth after 48 hours 02/23/19 20:07 Gram Stain - Preliminary Sputum Sputum Culture - Preliminary Freda albicans - Imaging and Cardiology Chest x-ray: report reviewed, image reviewed Assessment and Plan Assessment: 1. Spontaneous left pneumothorax, status post thoravent and thoracostomy tube placement 2. Acute respiratory failure with influenza A and streptococcus pyrogenes pneumonia, ARDS 3. Acute kidney injury secondary to acute tubular necrosis, status post temporary dialysis placement with daily dialysis, no dialysis today per nephrology 4. Septic shock with lactic acidosis 5. Multisystem organ failure 6. Troponin elevation 7. History of CAD with prior stenting 8. History of hypertension, currently hypotensive on levo 9. Hyperlipidemia 10. Chronic tobacco dependance 11. Thrombocytopenia, HIT panel negative 12. Rhabdomyolysis Plan: 1. Continue left pleural chest tube to continuous wall suction, will monitor for resolution of air leak. Discontinue thoravent. 2. Will monitor daily labs, x-rays 3. Wean ventilator when able. Ventilator management per pulmonology 4. Bronchodilators, steroids per pulmonology 5. Antibiotics per infectious disease. 6. GI/DVT prophylaxis with protonix, SCDs. 7. Avoid nephrotoxic agents. Continue hemodiaysis per nephrology. Wean levo as able. 8. Medical management of other comorbid conditions per primary care service. 9. More recommendations as patient progresses. Time with Patient: Greater than 30
[2019-02-26] MEDS: CHLORHEXIDINE GLUCONATE 15 ML CUP MUCOUS MEM SCH ×2 (09:12→20:00)
[2019-02-26] MEDS: NICOTINE 21MG/24HR PATCH TRANSDERM SCH (09:12)
[2019-02-26] MEDS: CALCIUM CARBONATE 500 MG CHEWABLE PO SCH ×2 (09:12→20:00)
[2019-02-26] MEDS: ASPIRIN 81 MG PO SCH (09:12)
[2019-02-26] MEDS: OSELTAMIVIR 60 MG/10 ML ORAL SYRINGE PO SCH ×2 (09:13→20:40)
--- NOTE | 2019-02-26 09:51 | PN ---
PROGRESS NOTE DATE OF SERVICE: 02/26/2019 This is a 63-year-old male that was admitted by my partner over last weekend. He was admitted back on February 16. He initially came in with a diagnosis of acute respiratory failure with hypoxemia secondary to influenza infection and Streptococcus pyogenes pneumonia. He subsequently developed acute lung injury and acute respiratory distress syndrome requiring high concentrations of oxygen and PEEP. Obviously, he was intubated and mechanically ventilated and has been since. Unfortunately developed left-sided pneumothorax. He required two Thora-Vents on the left and 2 chest tubes on the left. The 2nd chest tube was placed by myself in response to tension pneumothorax. He is still on the ventilator. He has not had any weaning. We have been speaking to the family each day. Overall prognosis remains very guarded. The family understands this. Today, 1 of the nonfunctional Thoravents will be removed. This will only leave on chest tube on the left. Currently, he is on the volume assist-control mode rate of 40, tidal volume 450, FiO2 50%, PEEP of 5. Blood gases are reasonable, 66 for PO2, pCO2 47, pH is 7.34. They have improved all along the way. This blood gas actually was done on 40%. The respiratory therapist bumped the patient back up to 50%, but the patient can be safely on 40%. Again, as I mentioned, the nonfunctional left Thoravent will be removed. The patient is on propofol at 60 mcg/kg per minute, Levophed at 15 mcg/minute, a 0.9 IV at 20 mL an hour, Nepro 10 mL an hour with a goal of 10 mL an hour. Chest x-ray shows gradual improvement and oxygenation has improved. Current vital signs are reviewed. His temperature is 101 degrees. Heart rate 98, respiratory rate 40, blood pressure 100/60. Central venous pressure is 13 and saturations are 98% on the 40%, 5 of PEEP. Appears in no acute distress. Currently sedated. HEENT examination is grossly unremarkable. There is no orally placed endotracheal tube and NG tube. Neck is supple. Cardiovascular examination reveals regular rhythm and rate. The patient is mildly tachycardic. Heart rate about 102. It is sinus. S1, S2 normal. No distinct murmur noted. Cardiac pulmonary examination reveals coarse bilateral rhonchi. Breath sounds equal. No crackles. The left chest tube is noted. The leak is less severe. Abdomen is soft. Bowel sounds are heard. Extremities are intact. There is significant acrocyanosis and livedo reticularis with some mottling. Skin without rash other than the above. Neurologic examination is difficult to assess given his level of sedation. X-RAY: Shows no residual pneumothorax at this time. There is some diffuse atelectatic changes and infiltrative changes as well. LABS: Reviewed. White count 41.6, hemoglobin 9.3, hematocrit 26.6, platelet count 194,000. Blood gases have been noted. Sodium 127, potassium 4.8, chloride 94, CO2 20, anion gap is 13, BUN and creatinine were 51 and 3.05. Calcium is 5, ionized calcium 2.9, phosphorus is 6.6, magnesium 2.2, AST 1306, ALT 182, albumin 2.3. Gram stain from vein from February 17 shows strep pyogenes. ASSESSMENT: 1. Acute hypoxemic respiratory failure requiring intubation and mechanical ventilation on February 17, 2019 with development of acute respiratory distress syndrome (ARDS), secondary to sepsis, both from influenza infection and Streptococcus pyogenes pneumonia. 2. Acute septic shock secondary to influenza, complicated by Streptococcus pyogenes pneumonia. 3. Recurrent left-sided pneumothorax, status post Thora-Vent x2 and left-sided chest tube x2. The 2nd left-sided chest tube for the purposes of a relief of tension pneumothorax. 4. Acute pneumonia secondary to Streptococcus pyogenes. 5. History of acute sepsis/septic shock. 6. Multi organ system failure. 7. Acute kidney injury secondary to ATN, requiring daily hemodialysis. 8. History of coronary artery disease with previous stent placement. 9. Rhabdomyolysis. 10.Profound metabolic acidosis secondary to both shock and renal failure, somewhat improved. 11.Fluid overload. 12.Elevated troponins, likely reflecting by supply/demand mismatch. PLAN: The nonfunctional ThoraVent on the left will be removed. The left chest tube remain. There is improving leak on the left side. The blood gases are reasonable. The patient will remain on 40% and 5 of PEEP. The patient will remain on sedation and Levophed to maintain a mean arterial pressure of 65-70 mmHg. The patient is receiving Nepro 10 mL an hour which is goal. No additional culture data has been noted. The patient was re- cultured a number of times. We have been talking to the family on a daily basis. They understand the gravity of the situation. They do not want the patient transferred. They did make the patient DNR. They probably will not agree to a tracheostomy or PEG tube placement down the road. Additional recommendations and suggestions are forthcoming. Prognosis is very guarded. Critical care time 36 minutes. MATT / DALIA: [id number] /
[2019-02-26 12:13] LABS: Glucose,Whole Blood 129 mg/dL (75-99)
--- NOTE | 2019-02-26 14:31 | P.PN ---
Subjective Progress Note Date: 02/25/19 Principal diagnosis: Acute respiratory failure Spontaneous left-sided pneumothorax Influenza A/Streptococcus pneumonia Septic shock Multiorgan failure Spontaneous left sided pneumothorax, acute respiratory failure secondary to influenza A and streptococcus pyogenes pneumonia, acute kidney injury secondary to acute tubular necrosis due to hypotension and sepsis, mild troponin el evation. History of CAD with prior stenting, hypertension, hyperlipidemia, chronic tobacco abuse. Thrombocytopenia. POD #7 left chest thoravent placement x 2 and left thoracostomy tube placement POD #6 left femoral dialysis catheter placed by Dr. Barker POD #5 placement of second left thoracostomy tube for recurrent pneumothorax despite left thoracostomy tube in place 02/25/2019 The patient is seen and evaluated in bed in the intensive care unit, still mechanically ventilated; family members at bedside and all of their questions were answered to their satisfaction. Remains on levo, titrated up from yesterday. Chest tubes remain in place. Remains in normal sinus rhythm. Sedated on propofol. Remains on daily dialysis; CXR this morning is essentially unchanged. Remains febrile with a T-max of 105.3. Antibiotic therapy per ID recommendations namely ceftriaxone, clindamycin and Tamiflu; plan to adjust antibiotic therapy once blood and sputum cultures rece ntly drawn we will be available; pleural fluid culture previously negative Objective - Vital Signs Vital signs: Vital Signs Temp 95.7 F L 02/25/19 07:00 Pulse 81 02/25/19 07:26 Resp 40 H 02/25/19 07:00 BP 95/51 02/25/19 07:00 Pulse Ox 100 02/25/19 07:00 Intake & Output 02/24/19 02/25/19 02/25/19 18:59 06:59 18:59 Intake Total 1840.267 4647.233 136 Output Total 130 162 Balance 4109.612 8179.233 136 Weight 114.4 kg 117.6 kg Intake: IV 662 912 126 ACETAMINOPHEN IV (For NPO 100 ) 1,000 mg In Empty Bag 1 bag @ 400 mls/hr IVPB Q6HR PRN Rx#:[id number] ACETAMINOPHEN IV (For NPO 100 ) 1,000 mg In Empty Bag 1 bag @ 400 mls/hr IVPB Q6HR PRN Rx#:[id number] Calcium Gluconate 1 gm In 100 Sodium Chloride 0.9% 100 ml @ 100 mls/hr IVPB ONCE ONE Rx#:[id number] Calcium Gluconate 1 gm In 100 Sodium Chloride 0.9% 100 ml @ 100 mls/hr IVPB ONCE ONE Rx#:[id number] Calcium Gluconate 2 gm In 100 100 Sodium Chloride 0.9% 100 ml @ 100 mls/hr IVPB ONCE ONE Rx#:[id number] Clindamycin 900 mg In 50 50 Dextrose 5% in Water 50 ml @ 50 mls/hr IVPB Q8HR [facility] Rx#:[id number] D50 IV PUSH 100 Sodium Bicarbonate IV 200 PUSH Sodium Chloride 0.9% 1, 240 240 20 000 ml @ 20 mls/hr IV . Q24H [facility] Rx#:[id number] cefTRIAXone 2 gm In 50 Sodium Chloride 0.9% 50 ml @ 100 mls/hr IVPB Q24H [facility] Rx#:[id number] pressure bags 72 72 6 Intake, IV Titration 352.118 334.233 Amount Norepinephrine 32 mg In 67.079 34.233 Sodium Chloride 0.9% 218 ml @ 0.05 MCG/KG/MIN 2. 233 mls/hr IV .Q24H [facility] Rx#:[id number] Propofol 1,000 mg In 285.039 300 Empty Bag 1 bag @ Titrate IV .Q0M [facility] Rx#: [id number] Tube Feeding 136 110 10 Other 90 210 Output: Chest Tube Drainage 130 160 Chest Tube Left 130 160 Thora-Vent Left Upper Mid 0 0 -Clavicular Chest Urine 0 2 Other: Voiding Method Indwelling Catheter Indwelling Catheter ABP, PAP, CO, CI - Last Documented Arterial Blood Pressure 107/61 - Exam HEENT: Anicteric conjunctiva are pale but moist nasal mucosa grossly intact without significant lesions, there is no thrush noted around the endotracheal tube. No evidence of bleeding Neck: The neck is supple without significant lymphadenopathy or thyromegaly. Lungs: There is symmetrical air entry however very coarse bronchial sounds are heard in all lung garsia and still amphoric sounds in the anterior aspect of the left chest where the Heart: Tachycardic no murmur is noted there is palpable subcutaneous emphysema along the anterior aspect of the shoulder and upper aspect of the chest above the clavicle Abdomen: Abdomen has few bowel sounds, it is soft minimally distended and can palpate no mass or organomegaly Extremities: The extremities have some generalized edema, hands and feet are cool to touch mild bluish discoloration is noted,but no necrosis or ulcerations are seen Neuro: Sedated paralyzed mechanically ventilated - Labs CBC & Chem 7: 02/26/19 03:30 02/26/19 03:30 Labs: Abnormal Lab Results - Last 24 Hours (Table) 02/24/19 02/24/19 02/24/19 Range/Units 12:18 16:35 17:40 WBC (3.8-10.6) k/uL RBC (4.30-5.90) m/uL Hgb (13.0-17.5) gm/dL Hct (39.0-53.0) % RDW (11.5-15.5) % Neutrophils # (1.3-7.7) k/uL Monocytes # (0-1.0) k/uL Basophils # (0-0.2) k/uL ABG pH (7.35-7.45) ABG pCO2 (35-45) mmHg ABG pO2 (83-108) mmHg ABG O2 Saturation (94-97) % Sodium 127 L (137-145) mmol/L Potassium 7.0 H* 6.3 H* (3.5-5.1) mmol/L Chloride 94 L (98-107) mmol/L Carbon Dioxide 17 L (22-30) mmol/L BUN 41 H (9-20) mg/dL Creatinine 2.65 H (0.66-1.25) mg/dL Glucose 119 H (74-99) mg/dL POC Glucose (mg/dL) 124 H (75-99) mg/dL Calcium 5.4 L* (8.4-10.2) mg/dL Creatine Kinase (55-170) U/L 02/24/19 02/24/19 02/24/19 Range/Units 17:45 21:05 21:11 WBC (3.8-10.6) k/uL RBC (4.30-5.90) m/uL Hgb (13.0-17.5) gm/dL Hct (39.0-53.0) % RDW (11.5-15.5) % Neutrophils # (1.3-7.7) k/uL Monocytes # (0-1.0) k/uL Basophils # (0-0.2) k/uL ABG pH (7.35-7.45) ABG pCO2 (35-45) mmHg ABG pO2 (83-108) mmHg ABG O2 Saturation (94-97) % Sodium (137-145) mmol/L Potassium 6.5 H* (3.5-5.1) mmol/L Chloride (98-107) mmol/L Carbon Dioxide (22-30) mmol/L BUN (9-20) mg/dL Creatinine (0.66-1.25) mg/dL Glucose (74-99) mg/dL POC Glucose (mg/dL) 218 H 166 H (75-99) mg/dL Calcium (8.4-10.2) mg/dL Creatine Kinase (55-170) U/L 02/24/19 02/25/19 02/25/19 Range/Units 23:59 00:44 01:20 WBC (3.8-10.6) k/uL RBC (4.30-5.90) m/uL Hgb (13.0-17.5) gm/dL Hct (39.0-53.0) % RDW (11.5-15.5) % Neutrophils # (1.3-7.7) k/uL Monocytes # (0-1.0) k/uL Basophils # (0-0.2) k/uL ABG pH (7.35-7.45) ABG pCO2 (35-45) mmHg ABG pO2 (83-108) mmHg ABG O2 Saturation (94-97) % Sodium (137-145) mmol/L Potassium (3.5-5.1) mmol/L Chloride (98-107) mmol/L Carbon Dioxide (22-30) mmol/L BUN (9-20) mg/dL Creatinine (0.66-1.25) mg/dL Glucose (74-99) mg/dL POC Glucose (mg/dL) 174 H 175 H (75-99) mg/dL Calcium (8.4-10.2) mg/dL Creatine Kinase >592604 H* (55-170) U/L 02/25/19 02/25/19 02/25/19 Range/Units 03:30 03:30 04:46 WBC 42.6 H (3.8-10.6) k/uL RBC 3.05 L (4.30-5.90) m/uL Hgb 9.8 L (13.0-17.5) gm/dL Hct 28.0 L (39.0-53.0) % RDW 17.5 H (11.5-15.5) % Neutrophils # 39.3 H (1.3-7.7) k/uL Monocytes # 1.3 H (0-1.0) k/uL Basophils # 0.3 H (0-0.2) k/uL ABG pH 7.30 L (7.35-7.45) ABG pCO2 46 H (35-45) mmHg ABG pO2 155 H (83-108) mmHg ABG O2 Saturation 97.6 H (94-97) % Sodium 125 L (137-145) mmol/L Potassium 6.1 H* (3.5-5.1) mmol/L Chloride 92 L (98-107) mmol/L Carbon Dioxide 18 L (22-30) mmol/L BUN (9-20) mg/dL Creatinine (0.66-1.25) mg/dL Glucose (74-99) mg/dL POC Glucose (mg/dL) (75-99) mg/dL Calcium (8.4-10.2) mg/dL Creatine Kinase (55-170) U/L 02/25/19 Range/Units 06:25 WBC (3.8-10.6) k/uL RBC (4.30-5.90) m/uL Hgb (13.0-17.5) gm/dL Hct (39.0-53.0) % RDW (11.5-15.5) % Neutrophils # (1.3-7.7) k/uL Monocytes # (0-1.0) k/uL Basophils # (0-0.2) k/uL ABG pH (7.35-7.45) ABG pCO2 (35-45) mmHg ABG pO2 (83-108) mmHg ABG O2 Saturation (94-97) % Sodium (137-145) mmol/L Potassium (3.5-5.1) mmol/L Chloride (98-107) mmol/L Carbon Dioxide (22-30) mmol/L BUN (9-20) mg/dL Creatinine (0.66-1.25) mg/dL Glucose (74-99) mg/dL POC Glucose (mg/dL) 111 H (75-99) mg/dL Calcium (8.4-10.2) mg/dL Creatine Kinase (55-170) U/L Microbiology - Last 24 Hours (Table) 02/23/19 10:15 Blood Culture - Preliminary Blood No Growth after 24 hours 02/23/19 20:07 Gram Stain - Preliminary Sputum Sputum Culture - Preliminary Assessment and Plan Assessment: 1. Spontaneous left pneumothorax, status post thoravent and thoracostomy tube p lacement - Continue left pleural chest tube to continuous wall suction, will monitor for resolution of air leak - Will monitor daily labs, x-rays 2. Acute respiratory failure with influenza A and streptococcus pyrogenes pneumonia, ARDS - Wean ventilator when able. Ventilator management per pulmonology - Bronchodilators, steroids per pulmonology - Antibiotics per infectious disease. 3. Acute kidney injury secondary to acute tubular necrosis, status post temporary dialysis placement with daily dialysis - Avoid nephrotoxic agents. Continue hemodiaysis per nephrology. Wean levo as able. 4. Septic shock with lactic acidosis 5. Multisystem organ failure; sec to septic shock 6. Troponin elevation; continue with telemetry monitoring - History of CAD with prior stenting 7. History of hypertension, currently hypotensive on levo 8. Hyperlipidemia; not on statin therapy due to ALLERGIES to multiple medications; Lipitor, pravastatin, Crestor and simvastatin 9. Chronic tobacco dependance; nicotine patch 10. Hyperglycemia - Continue with Levemir 8 units subcu daily at bedtime with insulin sliding scale DVT prophylaxis; SCDs only due to thrombocytopenia CODE STATUS; full code Time with Patient: Greater than 30
[2019-02-26] MEDS: NOREPINEPHRINE 32 MG in SODIUM CHLORIDE 0.9% 218 ML IV SCH (15:07)
[2019-02-26] MEDS: CLINDAMYCIN 600 MG in DEXTROSE 5% IN WATER 50 ML IVPB SCH ×2 (15:51)
[2019-02-26] MEDS ORDERED: CALCIUM GLUCONATE 1 GM in SODIUM CHLORIDE 0.9% 100 ML IVPB ONE (18:00)
[2019-02-26 18:17] LABS: Glucose,Whole Blood 143 mg/dL (75-99)
[2019-02-26] MEDS: INSULIN DETEMIR (LEVEMIR) 100 UNIT/ML SYR SQ SCH (20:38)
[2019-02-26 20:39] LABS: Glucose,Whole Blood 141 mg/dL (75-99)
[2019-02-26] MEDS: IBUPROFEN 600 MG TAB PO PRN (20:56)
--- NOTE | 2019-02-26 21:47 | P.PN ---
Subjective Progress Note Date: 02/26/19 63-year-old male who has a history of tobacco use, coronary artery disease and congestive heart failure with the family relates is medically disabled because of his cardiac disease. He was ill earlier this week when he went to the walk-in clinic on Wednesday at that point in time was found to have evidence of fever and chest congestion. Influenza testing was positive for influenza a the patient was started on Tamiflu. The patient however then developed progressive decline of his status and on the presented to the emergency center. At that point in time he was profoundly ill with hypoxia, acidosis, and renal failure. He simply was admitted for intensive care unit he was intubated and has been sedated and mechanically ventilated. He is without significant hypotension is required multiple vasopressor agents that include Levophed and vasopressin, and has been treated with stress doses of steroids. The patient had worsening of his status and with his worsening pneumonia and refractory sepsis the infectious diseases consultation was requested. The patient's family is present. Relates that he has been with a declining medical status for some time but became acutely ill recently. None of the other family members are ill at this time. As noted the patient is intubated, sedated and mechanically ventilated and paralyzed further information from the family. The patient's status did worsen with a spontaneous pneumothorax which resulted in placement of two thoaravent devices which did not resolve the pneumothorax and constantly a chest tube was applied which has resolved most of the pneumothorax. As noted despite this remains hemodynamically unstable. 02/19/2019 the patient has had fever overnight. 102.1 recently. Intravenously acetaminophen has been given. With the change in the patient's PEEP to 16 there has now been a marked improvement of his oxygenation. He is on lower doses of vasopressor but remains with his acute renal failure and he is anicteric. As noted his sputum is evidence of Streptococcus pyogenes superimposed on influenza A. The case has been discussed with pulmonary critical care as well as nephrology. 02/20/2019 patient had difficulties with his chest tube and a new chest tube was then placed with marked improvement of his respiratory status. There has been a reduction in the amount of vasopressor therapy. Status post chest tube placement oxygenation is considerably improved. Fever has improved. No new positive cultures. Thrombocytopenia has worsened. Renal replacement therapy has been started 02/22/2019 patient remains in intensive care unit, intubated sedated and mechanically ventilated on vasopressor therapy. Leukocytosis persists in the thrombocytopenia has slightly improved. Vasopressor therapy is stable and there is been reduction in the amount of PEEP. Tolerated renal replacement therapy again 02/23/2019 receiving renal replacement therapy for the fifth time. Tolerating it well. Fevers have improved. Hypotension is improving. 02/24/2019 patient has had renal replacement therapy and has ongoing multisystem organ failure, with ARDS oliguric acute renal failure, hypotension. Hyperkalemia is persistent and further changed to hemodialysis tomorrow have been planned. Patient was febrile again. 02/26/2019 patient is had recurrent fever, no new positive cultures. The thoravent is removed today and chest tubes remain in place. Patient remains intubated sedated and mechanically ventilated. With multiple sessions of hemodialysis the creatinine is down to 3.05. White count remains elevated at 41.6. Objective - Vital Signs Vital signs: Vital Signs Temp 100.6 F H 02/26/19 18:00 Pulse 104 H 02/26/19 20:27 Resp 40 H 02/26/19 20:27 BP 95/51 02/26/19 18:00 Pulse Ox 92 L 02/26/19 19:00 Intake & Output 02/26/19 02/26/19 02/27/19 06:59 18:59 06:59 Intake Total 5038.989 2822.572 332.760 Output Total 140 20 3 Balance 9359.498 0740.572 329.760 Weight 119.5 kg 119.5 kg Intake: IV 562 312 202 Calcium Gluconate 2 gm In 100 100 Sodium Chloride 0.9% 100 ml @ 100 mls/hr IVPB ONCE ONE Rx#:[id number] Clindamycin 900 mg In 100 50 Dextrose 5% in Water 50 ml @ 50 mls/hr IVPB Q8HR NI Rx#:[id number] Sodium Chloride 0.9% 1, 240 240 40 000 ml @ 20 mls/hr IV . Q24H NI Rx#:[id number] cefTRIAXone 2 gm In 50 Sodium Chloride 0.9% 50 ml @ 100 mls/hr IVPB Q24H [facility] Rx#:[id number] pressure bags 72 72 12 Intake, IV Titration 392.221 583.572 90.760 Amount Norepinephrine 32 mg In 183.572 18.083 Sodium Chloride 0.9% 218 ml @ 0.05 MCG/KG/MIN 2. 233 mls/hr IV .Q24H NI Rx#:[id number] Propofol 1,000 mg In 392.221 400 72.677 Empty Bag 1 bag @ Titrate IV .Q0M NI Rx#: [id number] Tube Feeding 100 150 40 Other 180 90 Output: Chest Tube Drainage 140 20 Chest Tube Left 140 20 Urine 0 0 3 Other: Voiding Method Indwelling Catheter Indwelling Catheter Indwelling Catheter ABP, PAP, CO, CI - Last Documented Arterial Blood Pressure 103/53 T-max 103.8 - Exam 63-year-old male HEENT: Has evidence of mildly icteric conjunctiva are pale but moist nasal mu cosa grossly intact without significant lesions, there is no thrush noted around the endotracheal tube. No evidence of bleeding Neck: The neck is supple without significant lymphadenopathy or thyromegaly. Lungs: There is symmetrical air entry however very coarse bronchial sounds are heard in all lung garsia and still amphoric sounds in the anterior aspect of the left chest where the Heart: Tachycardic no murmur is noted there is palpable subcutaneous emphysema along the anterior aspect of the shoulder and upper aspect of the chest above the clavicle Abdomen: Abdomen has few bowel sounds, it is soft minimally distended and can palpate no mass or organomegaly Extremities: The patient's hypoperfusion is noted there is no evidence of some distal fingertip necrosis of the hands and toes. Left foot is cooler than the right Neuro: Sedated paralyzed mechanically ventilated - Labs CBC & Chem 7: 02/26/19 03:30 02/26/19 03:30 Labs: Abnormal Lab Results - Last 24 Hours (Table) 02/25/19 02/26/19 02/26/19 Range/Units 23:35 03:30 03:30 WBC 41.6 H (3.8-10.6) k/uL RBC 2.93 L (4.30-5.90) m/uL Hgb 9.3 L (13.0-17.5) gm/dL Hct 26.6 L (39.0-53.0) % RDW 18.0 H (11.5-15.5) % Neutrophils # (Manual) 41.10 H (1.3-7.7) k/uL Lymphocytes # (Manual) 0.83 L (1.0-4.8) k/uL ABG pCO2 (35-45) mmHg ABG pO2 (83-108) mmHg ABG Total CO2 (19-24) mmol/L ABG O2 Saturation (94-97) % Sodium 127 L (137-145) mmol/L Chloride 94 L (98-107) mmol/L Carbon Dioxide 20 L (22-30) mmol/L BUN 51 H (9-20) mg/dL Creatinine 3.05 H (0.66-1.25) mg/dL Glucose 144 H (74-99) mg/dL POC Glucose (mg/dL) 147 H (75-99) mg/dL Calcium 5.0 L* (8.4-10.2) mg/dL Ionized Calcium Ann (4.5-5.3) mg/dL Phosphorus 6.6 H (2.5-4.5) mg/dL Total Bilirubin 3.7 H (0.2-1.3) mg/dL AST 1306 H (17-59) U/L ALT 182 H (21-72) U/L Alkaline Phosphatase 279 H (38-126) U/L Total Protein 5.3 L (6.3-8.2) g/dL Albumin 2.3 L (3.5-5.0) g/dL 02/26/19 02/26/19 02/26/19 Range/Units 05:08 05:40 05:50 WBC (3.8-10.6) k/uL RBC (4.30-5.90) m/uL Hgb (13.0-17.5) gm/dL Hct (39.0-53.0) % RDW (11.5-15.5) % Neutrophils # (Manual) (1.3-7.7) k/uL Lymphocytes # (Manual) (1.0-4.8) k/uL ABG pCO2 47 H (35-45) mmHg ABG pO2 66 L (83-108) mmHg ABG Total CO2 27 H (19-24) mmol/L ABG O2 Saturation 90.5 L (94-97) % Sodium (137-145) mmol/L Chloride (98-107) mmol/L Carbon Dioxide (22-30) mmol/L BUN (9-20) mg/dL Creatinine (0.66-1.25) mg/dL Glucose (74-99) mg/dL POC Glucose (mg/dL) 148 H (75-99) mg/dL Calcium (8.4-10.2) mg/dL Ionized Calcium Ann 2.9 L* (4.5-5.3) mg/dL Phosphorus (2.5-4.5) mg/dL Total Bilirubin (0.2-1.3) mg/dL AST (17-59) U/L ALT (21-72) U/L Alkaline Phosphatase (38-126) U/L Total Protein (6.3-8.2) g/dL Albumin (3.5-5.0) g/dL 02/26/19 02/26/19 02/26/19 Range/Units 12:00 18:06 20:17 WBC (3.8-10.6) k/uL RBC (4.30-5.90) m/uL Hgb (13.0-17.5) gm/dL Hct (39.0-53.0) % RDW (11.5-15.5) % Neutrophils # (Manual) (1.3-7.7) k/uL Lymphocytes # (Manual) (1.0-4.8) k/uL ABG pCO2 (35-45) mmHg ABG pO2 (83-108) mmHg ABG Total CO2 (19-24) mmol/L ABG O2 Saturation (94-97) % Sodium (137-145) mmol/L Chloride (98-107) mmol/L Carbon Dioxide (22-30) mmol/L BUN (9-20) mg/dL Creatinine (0.66-1.25) mg/dL Glucose (74-99) mg/dL POC Glucose (mg/dL) 129 H 143 H 141 H (75-99) mg/dL Calcium (8.4-10.2) mg/dL Ionized Calcium Ann (4.5-5.3) mg/dL Phosphorus (2.5-4.5) mg/dL Total Bilirubin (0.2-1.3) mg/dL AST (17-59) U/L ALT (21-72) U/L Alkaline Phosphatase (38-126) U/L Total Protein (6.3-8.2) g/dL Albumin (3.5-5.0) g/dL Microbiology - Last 24 Hours (Table) 02/23/19 10:15 Blood Culture - Preliminary Blood No Growth after 72 hours 02/23/19 20:07 Gram Stain - Final Sputum Sputum Culture - Final Freda albicans Laboratory Results WBC 41.6 k/uL (3.8-10.6) H 02/26/19 03:30 RBC 2.93 m/uL (4.30-5.90) L 02/26/19 03:30 Hgb 9.3 gm/dL (13.0-17.5) L 02/26/19 03:30 Hct 26.6 % (39.0-53.0) L 02/26/19 03:30 MCV 91.0 fL (80.0-100.0) 02/26/19 03:30 MCH 31.3 pg (25.0-35.0) 02/26/19 03:30 MCHC 34.9 g/dL (31.0-37.0) 02/26/19 03:30 RDW 18.0 % (11.5-15.5) H 02/26/19 03:30 Plt Count 194 k/uL (150-450) 02/26/19 03:30 Neutrophils % 92 % 02/25/19 03:30 Neutrophils % (Manual) 93 % 02/26/19 03:30 Band Neutrophils % 6 % 02/26/19 03:30 Lymphocytes % 3 % 02/25/19 03:30 Lymphocytes % (Manual) 2 % 02/26/19 03:30 Monocytes % 3 % 02/25/19 03:30 Monocytes % (Manual) 1 % 02/26/19 03:30 Eosinophils % 0 % 02/25/19 03:30 Basophils % 1 % 02/25/19 03:30 Metamyelocytes % 1 % 02/19/19 05:40 Myelocytes % 4 % 02/16/19 19:00 Neutrophils # 39.3 k/uL (1.3-7.7) H 02/25/19 03:30 Neutrophils # (Manual) 41.10 k/uL (1.3-7.7) H 02/26/19 03:30 Lymphocytes # 1.1 k/uL (1.0-4.8) 02/25/19 03:30 Lymphocytes # (Manual) 0.83 k/uL (1.0-4.8) L 02/26/19 03:30 Monocytes # 1.3 k/uL (0-1.0) H 02/25/19 03:30 Monocytes # (Manual) 0.42 k/uL (0-1.0) 02/26/19 03:30 Eosinophils # 0.2 k/uL (0-0.7) 02/25/19 03:30 Basophils # 0.3 k/uL (0-0.2) H 02/25/19 03:30 Metamyelocytes # (Man) 0.14 k/uL (0) H 02/19/19 05:40 Myelocytes # (Manual) 0.53 k/uL (0) H 02/16/19 19:00 Nucleated RBCs 0 /100 WBC (0-0) 02/26/19 03:30 Differential Comment 02/24/19 04:20 Manual Slide Review Performed 02/26/19 03:30 Toxic Granulation Present 02/17/19 04:20 Toxic Vacuolation Present 02/26/19 03:30 Large Platelets Present 02/26/19 03:30 Polychromasia Present 02/26/19 03:30 Poikilocytosis Slight 02/26/19 03:30 Anisocytosis Slight 02/26/19 03:30 Macrocytosis Slight 02/16/19 19:00 PT 10.9 sec (9.0-12.0) 02/16/19 19:00 INR 1.0 (<1.2) 02/16/19 19:00 APTT 30.0 sec (22.0-30.0) 02/16/19 19:00 Sample Site [place] 02/26/19 05:08 ABG pH 7.35 (7.35-7.45) 02/26/19 05:08 ABG pCO2 47 mmHg (35-45) H 02/26/19 05:08 ABG pO2 66 mmHg (83-108) L 02/26/19 05:08 ABG HCO3 25 mmol/L (21-25) 02/26/19 05:08 ABG Total CO2 27 mmol/L (19-24) H 02/26/19 05:08 ABG O2 Saturation 90.5 % (94-97) L 02/26/19 05:08 ABG Base Excess -0.2 mmol/L 02/26/19 05:08 Lyndon Test Yes 02/26/19 05:08 FiO2 40 % 02/26/19 05:08 Sodium 127 mmol/L (137-145) L 02/26/19 03:30 Potassium 4.8 mmol/L (3.5-5.1) 02/26/19 03:30 Chloride 94 mmol/L (98-107) L 02/26/19 03:30 Carbon Dioxide 20 mmol/L (22-30) L 02/26/19 03:30 Anion Gap 13 mmol/L 02/26/19 03:30 BUN 51 mg/dL (9-20) H 02/26/19 03:30 Creatinine 3.05 mg/dL (0.66-1.25) H 02/26/19 03:30 Est GFR (CKD-EPI)AfAm 24 (>60 ml/min/1.73 sqM) 02/26/19 03:30 Est GFR (CKD-EPI)NonAf 21 (>60 ml/min/1.73 sqM) 02/26/19 03:30 Glucose 144 mg/dL (74-99) H 02/26/19 03:30 POC Glucose (mg/dL) 141 mg/dL (75-99) H 02/26/19 20:17 POC Glu [employer] ID Eduard Rich 02/26/19 20:17 Lactic Ac Sepsis Rflx Y 02/17/19 22:57 Plasma Lactic Acid Tra 7.6 mmol/L (0.7-2.0) H* 02/18/19 04:15 Calcium 5.0 mg/dL (8.4-10.2) L* 02/26/19 03:30 Ionized Calcium Ann 2.9 mg/dL (4.5-5.3) L* 02/26/19 05:40 Phosphorus 6.6 mg/dL (2.5-4.5) H 02/26/19 03:30 Magnesium 2.2 mg/dL (1.6-2.3) 02/26/19 03:30 Total Bilirubin 3.7 mg/dL (0.2-1.3) H 02/26/19 03:30 AST 1306 U/L (17-59) H 02/26/19 03:30 ALT 182 U/L (21-72) H 02/26/19 03:30 Alkaline Phosphatase 279 U/L (38-126) H 02/26/19 03:30 Creatine Kinase >668923 U/L (55-170) H* 02/25/19 01:20 Troponin I 4.250 ng/mL (0.000-0.034) H* 02/18/19 04:15 NT-Pro-B Natriuret Pep 4770 pg/mL 02/16/19 19:00 Total Protein 5.3 g/dL (6.3-8.2) L 02/26/19 03:30 Albumin 2.3 g/dL (3.5-5.0) L 02/26/19 03:30 Vitamin D 25-Hydroxy 10.9 ng/mL (30.0-100.0) L 02/20/19 04:20 Urine Color Dark Brown 02/19/19 06:10 Urine Appearance Cloudy (Clear) 02/19/19 06:10 Urine pH 5.0 (5.0-8.0) 02/19/19 06:10 Ur Specific [place] 1.019 (1.001-1.035) 02/19/19 06:10 Urine Protein 1+ (Negative) H 02/19/19 06:10 Urine Glucose (UA) 1+ (Negative) H 02/19/19 06:10 Urine Ketones 1+ (Negative) H 02/19/19 06:10 Urine Blood Moderate (Negative) H 02/19/19 06:10 Urine Nitrite Negative (Negative) 02/19/19 06:10 Urine Bilirubin Negative (Negative) 02/19/19 06:10 Urine Urobilinogen <2.0 mg/dL (<2.0) 02/19/19 06:10 Ur Leukocyte Esterase Trace (Negative) H 02/19/19 06:10 Urine RBC 1 /hpf (0-5) 02/19/19 06:10 Urine WBC 1 /hpf (0-5) 02/19/19 06:10 Random Vancomycin 19.3 ug/mL 02/20/19 04:35 Heparin-Ind Plt Ab Scrn 0.169 OD (<0.4) 02/20/19 04:35 C. difficile (EIA) Intrp Negative (Negative) 02/25/19 04:30 Hep Bs Antigen Non-Reactive (Non-Reactive) 02/19/19 05:40 Hep Bs Antibody Non-Reactive (Non-Reactive) 02/19/19 05:40 Hep Bs Antibody, Quant 3.5 mIU/mL 02/19/19 05:40 Hep B Core Total Ab Non-Reactive (Non-Reactive) 02/19/19 05:40 Miscellaneous Test COMP/MG/PHOS 02/25/19 03:30 Misc Test Result See comment 02/25/19 03:30 Microbiology 02/23/19 10:15 Blood Blood Culture - Preliminary No Growth after 72 hours 02/23/19 20:07 Sputum Gram Stain - Final 02/23/19 20:07 Sputum Sputum Culture - Final Freda albicans 02/16/19 19:00 Blood Blood Culture - Final No Growth after 144 hours 02/18/19 11:45 Pleural Fluid Gram Stain - Final 02/18/19 11:45 Pleural Fluid Body Fluid Culture - Final 02/17/19 12:54 Sputum Gram Stain - Final 02/17/19 12:54 Sputum Sputum Culture - Final Strep pyogenes (grp a) 02/17/19 10:00 Urine,Catheterized Urine Culture - Final - Imaging and Cardiology Chest x-ray: report reviewed (Pneumothorax resolved pneumonic infiltrates without change) Assessment and Plan (1) Influenza A Current Visit: Yes Status: Acute Code(s): J10.1 - FLU DUE TO OTH IDENT INFLUENZA VIRUS W OTH RESP MANIFEST SNOMED Code(s): 464512657 (2) Pneumonia and influenza Narrative/Plan: 63-year-old male who is a history of underlying cardiovascular disease and has been medically disabled presents to Hospital with a relatively short history of influenza A. The patient has the rapid onset of progressive shortness of breath and has now developed respiratory failure, acute lung injury with acute renal failure. Pulmonary critical care is having difficulties of adequate oxygenation and the patient has poor urinary output. His and seen by nephrology and they're contemplating Sled therapy if his hypotension can be further managed. Influenza A is associated with aggressive pneumonia staph aureus and Streptococcus pyogenes given associated with severe necrotizing pneumonia directly links to the influenza infection. We'll continue the active treatment of the influenza with the Tamiflu. Antibiotic therapy with vancomycin and Levaquin has been utilized pending further data. Of note if the patient has been seen the laboratory relates that showed Streptococcus pyogenes has been isolated in the respiratory secretions. Concern this is a super antigen type strain and constantly antibiotic therapy is altered to ceftriaxone ( with penicillin ALLERGY) and clindamycin was added to attempt to reduce toxin production. Overall prognosis is very poor. 02/19/2019 the patient has now had some measurable improvement. When the PEEP was increased to 16 the patient started fractionate much better and is now had further improvement of several of his parameters including improved hypotension. However has acute renal failure and the case has been discussed with medical care and nephrology. IV access for dialysis is to be placed and hopefully will be over start dialysis soon. As patient is more hemodynamically stable. The antimicrobial therapy with Rocephin and clindamycin are being utilizes point in time. Patient likely has a super antigen strain of strep resulting in the current profound level of illness. 02/20/2019 patient remains profoundly ill with multisystem organ failure however with the new chest tube there is been some improvement of his respiratory status. He is receiving renal replacement therapy and remains on vasopressor therapy. The pneumonia from influenza and super infection with Streptococcus pyogenses is occurring and is on antiviral and antibiotic therapy. For now supportive care is continuing prognosis remains very poor 02/22/2019 patient's status remains intubated, sedated chemically ventilated and vasopressor therapy. Leukocytosis is stable and from a combination of the sign ificant influenza, necrotizing Streptococcus pyogenes pneumonia and hydrocortisone therapy. The thrombocytopenia has improved from 24-42, likely relating to some improvement of his sepsis with renal replacement therapy the regimen is down to 5.97, and related that it was well-tolerated today. Antibiotic therapy continues with high-dose Rocephin and clindamycin for the isolated pathogens. Tamiflu continues given the profound respiratory failure originally from influenza A. 02/23/2019 patient remains intubated sedated and mechanically ventilated requiring vasopressor therapy. Over there are some improvements in the last day that the amount of PEEP requirement has gone down, vasopressor therapy is stable and tolerating dialysis without increased amounts of vasopressor. Is having much more effective dialysis session today. Patient remains profoundly ill continues to have leukocytosis but the thrombocytopenia is improving the treatment of uremia and underlying sepsis. Is on the Tamiflu and antibiotic therapy with Rocephin and clindamycin continue no new positive cultures. Prognosis remains poor. 02/24/2019 patient remains with multisystem organ failure, with multiple sessions of hemodialysis there has been some slight improvement in his pulmonary status. Remains on vasopressor therapy Patient is now developing increasing leukocytosis. Etiology is not entirely clear however he is receiving stress doses of hydrocortisone which may be driving the leukocytosis. Other concerns include worsening sepsis or develop of underlying organ ischemia. The patient is on clindamycin therapy and if develops diarrhea will need to be concerned about the possibility of C. diff colitis also. Prognosis remains poor. 02/26/2019 patient remains in intensive care unit intubated sedated and mechanically ventilated. Did have a brief period without fever but again has had a temperature as high as 103.8 Fahrenheit. Currently improved and on the cooling blanket. Patient has evidence of increased total bilirubin and liver function tests were markedly elevated evidence of shock liver in addition to the acute renal failure with ATN. Remains on vasopressor therapy and has the respiratory failure. The patient now has progression of the ischemic changes to the fingertips and toes is worse in the last day. Prognosis is very poor this is related to family member. Current Visit: Yes Status: Acute Code(s): J11.00 - FLU DUE TO UNIDENTIFIED FLU VIRUS W UNSP TYPE OF PNEUMONIA SNOMED Code(s): 105614824 (3) Acute renal failure Current Visit: Yes Status: Acute Code(s): N17.9 - ACUTE KIDNEY FAILURE, UNSPECIFIED SNOMED Code(s): 42699431
[2019-02-27 00:10] LABS: Glucose,Whole Blood 143 mg/dL (75-99)
[2019-02-27] MEDS: INSULIN ASPART (NovoLOG) 100 UNIT/ML VIAL SQ SCH ×4 (00:25→17:44)
[2019-02-27] MEDS: CLINDAMYCIN 600 MG in DEXTROSE 5% IN WATER 50 ML IVPB SCH ×8 (01:00→23:23)
[2019-02-27] MEDS: PROPOFOL 1,000 MG in EMPTY BAG 1 BAG IV SCH ×7 (01:51→22:08)
[2019-02-27] MEDS: HYDROmorphone 1 MG/ML 1 ML SYRINGE IVP PRN ×2 (01:54→05:08)
[2019-02-27] MEDS: SODIUM CHLORIDE 0.9% 1,000 ML IV SCH ×2 (01:56→17:40)
[2019-02-27] MEDS: IPRATROPIUM-ALBUTEROL 3 ML NEB INHALATION SCH ×6 (02:54→23:13)
[2019-02-27 04:17] LABS: ABG Base Excess -2.8 mmol/L; ABG HCO3 23 mmol/L (21-25); ABG PCO2 44 mmHg (35-45); ABG PH 7.33 (7.35-7.45); ABG PO2 78 mmHg (83-108); ABG TCO2 25 mmol/L (19-24)
[2019-02-27] MEDS: ARTIFICIAL TEARS-HYPROMELLOSE DROPS 15 ML BTL BOTH EYES SCH ×5 (04:58→22:45)
[2019-02-27] MEDS: IBUPROFEN 600 MG TAB PO PRN (04:58)
[2019-02-27] MEDS: HYDROCORTISONE SUCCINATE 100 MG/2 ML VIAL IV SCH ×3 (04:58→22:30)
[2019-02-27] MEDS: CALCIUM ACETATE 667 MG CAP PO SCH ×3 (05:06→22:29)
[2019-02-27 05:11] LABS: Basophils # (A) 0.2 k/uL (0-0.2); Basophils % (A) 0 %; Eosinophils # (A) 0.3 k/uL (0-0.7); Eosinophils % (A) 1 %; HCT 21.9 % (39.0-53.0); Lymphocytes # (A) 1.1 k/uL (1.0-4.8); Lymphocytes % (A) 3 %; MCV 94.7 fL (80.0-100.0); Mean Platelet Volume 9.8; Monocytes # (A) 1.2 k/uL (0-1.0); Monocytes % (A) 3 %; Neutrophils # (A) 40.4 k/uL (1.3-7.7); Neutrophils % (A) 93 %; Platelet Count 200 k/uL (150-450); Poikilocytosis Slight; RBC 2.31 m/uL (4.30-5.90); RDW 15.9 % (11.5-15.5); WBC 43.4 k/uL (3.8-10.6)
[2019-02-27 05:12] LABS: MCH 31.9 pg (25.0-35.0); MCHC 34.1 g/dL (31.0-37.0)
[2019-02-27 05:13] LABS: HGB 7.5 gm/dL (13.0-17.5)
[2019-02-27 05:44] LABS: Glucose,Whole Blood 132 mg/dL (75-99)
[2019-02-27 05:51] LABS: HCT 22.5 % (39.0-53.0); MCV 95.1 fL (80.0-100.0); Platelet Count 213 k/uL (150-450); Poikilocytosis Slight; RBC 2.37 m/uL (4.30-5.90); WBC 45.3 k/uL (3.8-10.6)
[2019-02-27 05:55] LABS: HGB 7.6 gm/dL (13.0-17.5); MCH 31.7 pg (25.0-35.0); MCHC 33.8 g/dL (31.0-37.0)
[2019-02-27 06:20] LABS: Ionized Calcium 2.8 mg/dL (4.5-5.3)
[2019-02-27 06:40] LABS: Potassium 5.4 mmol/L (3.5-5.1)
[2019-02-27 07:08] LABS: Albumin 2.3 g/dL (3.5-5.0); Calcium 4.8 mg/dL (8.4-10.2); Magnesium 2.2 mg/dL (1.6-2.3); Phosphorus 8.2 mg/dL (2.5-4.5); Total Protein 5.3 g/dL (6.3-8.2)
[2019-02-27 07:09] LABS: Total Bilirubin 3.4 mg/dL (0.2-1.3)
[2019-02-27] MEDS ORDERED: CALCIUM GLUCONATE 2 GM in SODIUM CHLORIDE 0.9% 100 ML IVPB ONE (08:00)
--- NOTE | 2019-02-27 08:18 | P.PN ---
Subjective Progress Note Date: 02/27/19 Principal diagnosis: Spontaneous left sided pneumothorax, acute respiratory failure secondary to influenza A and streptococcus pyogenes pneumonia, acute kidney injury secondary to acute tubular necrosis due to hypotension and sepsis, mild troponin elevation. History of CAD with prior stenting, hypertension, hyperlipidemia, chronic tobacco abuse. Thrombocytopenia. Rhabdomyolysis. POD #9 left chest thoravent placement x 2 and left thoracostomy tube placement POD #8 left femoral dialysis catheter placed by Dr. Barker POD #7 placement of second left thoracostomy tube for recurrent pneumothorax despite left thoracostomy tube in place The patient is currently laying in bed in the intensive care unit, still mechanically ventilated. Remains on levo, decreased from yesterday. Chest tube remains in place. Remains in normal sinus rhythm. Sedated on propofol. Has received daily dialysis, no dialysis yesterday. Remains febrile, T-max overnight 100.8F. Remains on ceftriaxone, clindamycin, Tamiflu per Dr. Shipley. Blood culture from February 23 still pending, sputum culture reporting Freda, pleural fluid culture from February 18 negative. Objective - Vital Signs Vital signs: Vital Signs Temp 100.5 F H 02/27/19 07:00 Pulse 94 02/27/19 07:21 Resp 12 02/27/19 07:00 BP 95/51 02/27/19 02:00 Pulse Ox 93 L 02/27/19 07:00 Intake & Output 02/26/19 02/27/19 02/27/19 18:59 06:59 18:59 Intake Total 7788.779 0721.408 46 Output Total 20 51 0 Balance 2731.154 4692.408 46 Weight 119.5 kg 119.3 kg Intake: IV 312 462 26 Calcium Gluconate 2 gm In 100 Sodium Chloride 0.9% 100 ml @ 100 mls/hr IVPB ONCE ONE Rx#:[id number] Clindamycin 900 mg In 50 Dextrose 5% in Water 50 ml @ 50 mls/hr IVPB Q8HR [facility] Rx#:[id number] Sodium Chloride 0.9% 1, 240 240 20 000 ml @ 20 mls/hr IV . Q24H [facility] Rx#:[id number] pressure bags 72 72 6 Intake, IV Titration 583.572 599.408 Amount Clindamycin 600 mg In 50 Dextrose 5% in Water 50 ml @ 50 mls/hr IVPB Q8HR [facility] Rx#:[id number] Norepinephrine 32 mg In 183.572 56.877 Sodium Chloride 0.9% 218 ml @ 0.05 MCG/KG/MIN 2. 233 mls/hr IV .Q24H [facility] Rx#:[id number] Propofol 1,000 mg In 400 442.531 Empty Bag 1 bag @ Titrate IV .Q0M [facility] Rx#: [id number] cefTRIAXone 2 gm In 50 Sodium Chloride 0.9% 50 ml @ 100 mls/hr IVPB Q24H [facility] Rx#:[id number] Tube Feeding 150 240 20 Other 90 100 Output: Chest Tube Drainage 20 40 Chest Tube Left 20 40 Urine 0 11 0 Other: Voiding Method Indwelling Catheter Indwelling Catheter ABP, PAP, CO, CI - Last Documented Arterial Blood Pressure 130/62 - Constitutional General appearance: Present: no acute distress, obese - Respiratory Details: Lung sounds diminished bilaterally with coarse breath sounds in the bases. Respirations even, non-labored on mechanical ventilation. Current ventilator settings assist control mode, FiO2 40%, TV 450, RR 40, PEEP 5. 8.0 ETT present, 23 at the lip. Left chest tube to continuous wall suction, 40 mL serous drainage overnight, 100 mL output in 24 hours, continuous air leak remains present. - Cardiovascular Details: S1/S2 present. Regular rate and rhythm, sinus rhythm on telemetry. Doppler huber pheral pulses bilaterally. Lower extremity edema present. SCDs present. Left radial arterial line, right internal jugular triple lumen central line present. - Gastrointestinal Gastrointestinal Comment(s): Abdomen soft, non-tender, slightly distended. Active bowel sounds present x 4 quadrants. OGT present, tube feeding infusing at 20 mL/hr. No documented bowel movement since admission. - Genitourinary Genitourinary Comment(s): Loo catheter present draining drops of urine. Left femoral temporary dialysis catheter present. - Integumentary Integumentary Comment(s): Skin is cool, intact. Fluid blisters present to upper extremities. Bilateral lower extremities mottled with blue/black toes. - Psychiatric Psychiatric Comment(s): Currently sedated with propofol on mechanical ventilation. - Allied health notes Allied health notes reviewed: nursing - Labs CBC & Chem 7: 02/27/19 05:20 02/27/19 05:20 Labs: Abnormal Lab Results - Last 24 Hours (Table) 02/26/19 02/26/19 02/26/19 Range/Units 12:00 18:06 20:17 WBC (3.8-10.6) k/uL RBC (4.30-5.90) m/uL Hgb (13.0-17.5) gm/dL Hct (39.0-53.0) % RDW (11.5-15.5) % Neutrophils # (1.3-7.7) k/uL Monocytes # (0-1.0) k/uL ABG pH (7.35-7.45) ABG pO2 (83-108) mmHg ABG Total CO2 (19-24) mmol/L Sodium (137-145) mmol/L Potassium (3.5-5.1) mmol/L Chloride (98-107) mmol/L Carbon Dioxide (22-30) mmol/L BUN (9-20) mg/dL Creatinine (0.66-1.25) mg/dL Glucose (74-99) mg/dL POC Glucose (mg/dL) 129 H 143 H 141 H (75-99) mg/dL Calcium (8.4-10.2) mg/dL Ionized Calcium Ann (4.5-5.3) mg/dL Phosphorus (2.5-4.5) mg/dL Total Bilirubin (0.2-1.3) mg/dL AST (17-59) U/L ALT (21-72) U/L Alkaline Phosphatase (38-126) U/L Total Protein (6.3-8.2) g/dL Albumin (3.5-5.0) g/dL 02/26/19 02/27/19 02/27/19 Range/Units 23:59 04:15 04:35 WBC 43.4 H (3.8-10.6) k/uL RBC 2.31 L (4.30-5.90) m/uL Hgb 7.5 L D (13.0-17.5) gm/dL Hct 21.9 L (39.0-53.0) % RDW 15.9 H (11.5-15.5) % Neutrophils # 40.4 H (1.3-7.7) k/uL Monocytes # 1.2 H (0-1.0) k/uL ABG pH 7.33 L (7.35-7.45) ABG pO2 78 L (83-108) mmHg ABG Total CO2 25 H (19-24) mmol/L Sodium (137-145) mmol/L Potassium (3.5-5.1) mmol/L Chloride (98-107) mmol/L Carbon Dioxide (22-30) mmol/L BUN (9-20) mg/dL Creatinine (0.66-1.25) mg/dL Glucose (74-99) mg/dL POC Glucose (mg/dL) 143 H (75-99) mg/dL Calcium (8.4-10.2) mg/dL Ionized Calcium Ann (4.5-5.3) mg/dL Phosphorus (2.5-4.5) mg/dL Total Bilirubin (0.2-1.3) mg/dL AST (17-59) U/L ALT (21-72) U/L Alkaline Phosphatase (38-126) U/L Total Protein (6.3-8.2) g/dL Albumin (3.5-5.0) g/dL 02/27/19 02/27/19 02/27/19 Range/Units 04:35 05:20 05:20 WBC 45.3 H (3.8-10.6) k/uL RBC 2.37 L (4.30-5.90) m/uL Hgb 7.6 L (13.0-17.5) gm/dL Hct 22.5 L (39.0-53.0) % RDW 16.0 H (11.5-15.5) % Neutrophils # (1.3-7.7) k/uL Monocytes # (0-1.0) k/uL ABG pH (7.35-7.45) ABG pO2 (83-108) mmHg ABG Total CO2 (19-24) mmol/L Sodium 127 L (137-145) mmol/L Potassium 5.4 H (3.5-5.1) mmol/L Chloride 94 L (98-107) mmol/L Carbon Dioxide 19 L (22-30) mmol/L BUN 79 H (9-20) mg/dL Creatinine 3.60 H (0.66-1.25) mg/dL Glucose 108 H (74-99) mg/dL POC Glucose (mg/dL) (75-99) mg/dL Calcium 4.8 L* (8.4-10.2) mg/dL Ionized Calcium Ann 2.8 L* 2.8 L* (4.5-5.3) mg/dL Phosphorus 8.2 H (2.5-4.5) mg/dL Total Bilirubin 3.4 H (0.2-1.3) mg/dL AST 936 H (17-59) U/L ALT 177 H (21-72) U/L Alkaline Phosphatase 281 H (38-126) U/L Total Protein 5.3 L (6.3-8.2) g/dL Albumin 2.3 L (3.5-5.0) g/dL 02/27/19 Range/Units 05:32 WBC (3.8-10.6) k/uL RBC (4.30-5.90) m/uL Hgb (13.0-17.5) gm/dL Hct (39.0-53.0) % RDW (11.5-15.5) % Neutrophils # (1.3-7.7) k/uL Monocytes # (0-1.0) k/uL ABG pH (7.35-7.45) ABG pO2 (83-108) mmHg ABG Total CO2 (19-24) mmol/L Sodium (137-145) mmol/L Potassium (3.5-5.1) mmol/L Chloride (98-107) mmol/L Carbon Dioxide (22-30) mmol/L BUN (9-20) mg/dL Creatinine (0.66-1.25) mg/dL Glucose (74-99) mg/dL POC Glucose (mg/dL) 132 H (75-99) mg/dL Calcium (8.4-10.2) mg/dL Ionized Calcium Ann (4.5-5.3) mg/dL Phosphorus (2.5-4.5) mg/dL Total Bilirubin (0.2-1.3) mg/dL AST (17-59) U/L ALT (21-72) U/L Alkaline Phosphatase (38-126) U/L Total Protein (6.3-8.2) g/dL Albumin (3.5-5.0) g/dL Microbiology - Last 24 Hours (Table) 02/23/19 10:15 Blood Culture - Preliminary Blood No Growth after 72 hours 02/23/19 20:07 Gram Stain - Final Sputum Sputum Culture - Final Freda albicans - Imaging and Cardiology Chest x-ray: image reviewed Assessment and Plan Assessment: 1. Spontaneous left pneumothorax, status post thoravent and thoracostomy tube placement 2. Acute respiratory failure with influenza A and streptococcus pyrogenes pneumonia, ARDS 3. Acute kidney injury secondary to acute tubular necrosis, status post temporary dialysis placement with daily dialysis 4. Septic shock with lactic acidosis 5. Multisystem organ failure 6. Troponin elevation 7. History of CAD with prior stenting 8. History of hypertension, currently hypotensive on levo 9. Hyperlipidemia 10. Chronic tobacco dependance 11. Thrombocytopenia, HIT panel negative 12. Rhabdomyolysis Plan: 1. Continue left pleural chest tube to continuous wall suction, will monitor for resolution of air leak. 2. Will monitor daily labs, x-rays 3. Wean ventilator when able. Ventilator management per pulmonology 4. Bronchodilators, steroids per pulmonology 5. Antibiotics per infectious disease. 6. GI/DVT prophylaxis with protonix, SCDs. 7. Avoid nephrotoxic agents. Continue hemodiaysis per nephrology. Wean levo as able. 8. Medical management of other comorbid conditions per primary care service. 9. Will continue to follow. Time with Patient: Greater than 30
--- NOTE | 2019-02-27 08:38 | XR ---
EXAMINATION TYPE: XR chest 1V portable DATE OF EXAM: 02/27/2019 HISTORY: Follow-up pneumothorax COMPARISON: 02/26/2019 TECHNIQUE: Single view of the chest is submitted. FINDINGS: Left-sided pneumothorax is noted and measures 9.7 mm. Left sided chest tube is unchanged in position. Pleural catheter has been removed. Patchy basilar infiltrates and/or atelectasis with small effusions remain stable. Endotracheal and NG tubes are unchanged in position. The heart is stable. Hilar and mediastinal structures are within normal limits. Degenerative changes are seen of the dorsal spine. IMPRESSION: 1. Left-sided pneumothorax is noted and measures 9.7 mm. Left sided chest tube is unchanged in posit ion. Pleural catheter has been removed. 2. Patchy basilar infiltrates and/or atelectasis with small effusions remain stable.
[2019-02-27] MEDS: PANTOPRAZOLE 40 MG/10 ML VIAL IVP SCH ×2 (09:09→23:05)
[2019-02-27] MEDS: NICOTINE 21MG/24HR PATCH TRANSDERM SCH (09:09)
[2019-02-27] MEDS: ASPIRIN 81 MG PO SCH (09:09)
[2019-02-27] MEDS: CALCIUM CARBONATE 500 MG CHEWABLE PO SCH ×2 (09:09→22:29)
[2019-02-27] MEDS: CHLORHEXIDINE GLUCONATE 15 ML CUP MUCOUS MEM SCH ×2 (09:09→22:30)
[2019-02-27] MEDS: OSELTAMIVIR 60 MG/10 ML ORAL SYRINGE PO SCH (09:58)
--- NOTE | 2019-02-27 09:58 | PN ---
PROGRESS NOTE Patient is seen for followup for acute kidney injury. He remains hemodialysis dependent. The patient will be dialyzed again today. Hyperkalemia seems to have improved. Patient has been receiving daily dialysis. Etiology was secondary to the rhabdomyolysis. CK levels were ordered on Wednesday as patient continued to be hyperkalemic in spite of daily dialysis. It did come back as more than 160,000. The patient continues with poor urine output. He remains on the vent. Levophed is at about 30 mcg. Chest tubes are present. PHYSICAL EXAMINATION: On examination this morning, blood pressure was 127/61, heart rate 100 per minute. Patient has a temperature of 101.3 degrees. EXAMINATION OF THE HEART: S1, S2. EXAMINATION OF THE LUNGS: Bilateral breath sounds are heard. Chest tube is noted. Abdomen is soft. Examination of the lower extremities shows edema 2+ with discoloration of the toes noted bilaterally. 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 LABS: Labs show hemoglobin 7.6, sodium 127, potassium 5.4, chloride 94, BUN 79, serum creatinine 3.6. Ionized calcium 2.8. Total calcium 4.8. ASSESSMENT: 1. Acute kidney injury, acute tubular necrosis, currently oliguric and dialysis dependent, maintained on daily dialysis. 2. Hyperkalemia associated with severe rhabdomyolysis as well as acute kidney injury and hypercatabolic state. Continue to maintain patient on daily dialysis. 3. Hypocalcemia associated with rhabdomyolysis and nutrition vitamin D deficiency and sepsis, maintained on supplementation. 4. Hyponatremia, which is hypervolemic. 5. Fluid overload. 6. Acute hypoxic respiratory failure. 7. Anemia with no active bleeding noted at this time. Hemoglobin is 7.6. PLAN: Repeat hemodialysis today. Continue with calcium supplementation as well as phosphate binders and vitamin D. Avoid Motrin given the hyperkalemia and repeat labs in a.m. MMODL / IJN: [id number] / FELICE
--- NOTE | 2019-02-27 10:15 | P.PN ---
Subjective Progress Note Date: 02/27/19 53-year-old male patient was being seen in the intensive care unit for respiratory failure, pneumonia, sepsis, multisystem organ failure. The patient was admitted on 02/16/2019. This morning the patient is sedated with Diprivan and is calm and comfortable and Diprivan is running at 60 g per KG per minute. He remains intubated on a mechanical ventilator. I noted that the patient was quite uncomfortable while being on a mechanical ventilator. He was double stacking and was breathing fast and he was having persistent amount of air leak in the Pleur-evac. Based on this, I made adjustments, and switch this patient to a VC mode with a tidal volume of 500, respiratory rate of 25, I time of 1.1 and this is a VC plus molds. I kept FiO2 at 50%. Awaiting subsequent blood gases. Nevertheless, with these changes, the patient is much more comfortable and synchronous with the mechanical ventilator. We don't have to given additional sedation such as Dilaudid or fentanyl. Meanwhile, the patient still has a left-sided chest tube. There is obvious air leak and the left-sided chest tube. Amount of fluid and urinating over the past 24 hours is minimal at this point in time. Chest x-ray shows bilateral pulmonary infiltrates and left-sided chest tube in place and there is no evidence of any sizable pneumothorax. Hemodynamically, the patient is on IV fluids currently running at 28 an hour. The patient is also on pressors and norepinephrine infusion is running at 10 g per minute. The patient is on dialysis. His last round of the analysis was done on 02/25/2019 where a total of 1.5 L of fluid was removed. He is about to have another session of dialysis today. He is dialysis catheter is inserted in his left femoral vein. He has an EF around 6065% and this was done in time of admission. In terms of his infection, the patient is still spiking temperature with a T-max of 101.3. His current temperatures 100.8. I noted ongoing rise in his white count and obviously there is a concern for reinfection. History volume a Right IJ seems to be quite clean and intact. He also has a femoral dialysis catheter. His skin is swollen and there is some areas of blistering and vesical formation due to fluid overload on multiple locations been no evidence of any cellulitis. He has cyanotic digits in his feet bilaterally and his right hand fingers and these are mainly related to the utilization of high dose of pressors at time of his septic shock. He is current antibiotic coverage including a combination of Rocephin and clindamycin per IDs recommendation. He is taking Nepro at the rate of 20 mL an hour. His most recent sputum Gram stain and culture showed Freda and strep pyogenous. Objective - Vital Signs Vital signs: Vital Signs Temp 101.3 F H 02/27/19 08:00 Pulse 99 02/27/19 08:00 Resp 47 H 02/27/19 08:00 BP 95/51 02/27/19 02:00 Pulse Ox 94 L 02/27/19 08:00 Intake & Output 02/26/19 02/27/19 02/27/19 18:59 06:59 18:59 Intake Total 1262.525 0056.408 458 Output Total 20 51 0 Balance 7335.537 9722.408 458 Weight 119.5 kg 119.3 kg Intake: IV 312 462 228 Calcium Gluconate 2 gm In 100 Sodium Chloride 0.9% 100 ml @ 100 mls/hr IVPB ONCE ONE Rx#:[id number] Calcium Gluconate 2 gm In 100 Sodium Chloride 0.9% 100 ml @ 100 mls/hr IVPB ONCE ONE Rx#:[id number] Clindamycin 600 mg In 50 Dextrose 5% in Water 50 ml @ 50 mls/hr IVPB Q8HR [facility] Rx#:[id number] Clindamycin 900 mg In 50 Dextrose 5% in Water 50 ml @ 50 mls/hr IVPB Q8HR [facility] Rx#:[id number] Sodium Chloride 0.9% 1, 240 240 60 000 ml @ 20 mls/hr IV . Q24H [facility] Rx#:[id number] pressure bags 72 72 18 Intake, IV Titration 583.572 599.408 100 Amount Clindamycin 600 mg In 50 Dextrose 5% in Water 50 ml @ 50 mls/hr IVPB Q8HR [facility] Rx#:[id number] Norepinephrine 32 mg In 183.572 56.877 Sodium Chloride 0.9% 218 ml @ 0.05 MCG/KG/MIN 2. 233 mls/hr IV .Q24H [facility] Rx#:[id number] Propofol 1,000 mg In 400 442.531 100 Empty Bag 1 bag @ Titrate IV .Q0M [facility] Rx#: [id number] cefTRIAXone 2 gm In 50 Sodium Chloride 0.9% 50 ml @ 100 mls/hr IVPB Q24H [facility] Rx#:[id number] Tube Feeding 150 240 100 Other 90 100 30 Output: Chest Tube Drainage 20 40 Chest Tube Left 20 40 Urine 0 11 0 Other: Voiding Method Indwelling Catheter Indwelling Catheter ABP, PAP, CO, CI - Last Documented Arterial Blood Pressure 128/62 - Exam Gen. appearance the patient has single-vessel a mechanical ventilator. Calm and comfortable and sedated. Orogastric and orotracheal tube are both in place. Head exam was generally normal. There was no scleral icterus or corneal arcus. Mucous membranes were moist. Neck was supple and without jugular venous distension, thyromegaly, or carotid bruits. Carotids were easily palpable bilaterally. There was no adenopathy. The patient has a right IJ triple-lumen catheter in place. Lungs sounds are diminished bilaterally and there is scattered rhonchi heard throughout the lung garsia bilaterally. There is a left-sided chest tube in place with ongoing air leak. Cardiac exam revealed the PMI to be normally situated and sized. The rhythm was regular and no extrasystoles were noted during several minutes of auscultation. The first and second heart sounds were normal and physiologic splitting of the second heart sound was noted. There were no murmurs, rubs, clicks, or gallops. Abdominal exam revealed normal bowel sounds. The abdomen was soft, non-tender, and without masses, organomegaly, or appreciable enlargement of the abdominal aorta. Extremities revealed cyanotic digits mainly involving the toes bilaterally and the fingers of the right hand. The left lower extremity and the foot is quite cold. There is positive Doppler signal. Right lower extremity is warm and pulses can be palpated. The right radial pulse is weak. Left radial pulse is present and the patient has a Artline catheter in place. There is also areas of skin excoriation over the right upper extremity at the site of a radial art line insertion. No clear-cut areas of cellulitis. Vesical formation due to fluid overload. Skin as mentioned above. Neurologically the patient sedated and calm and comfortable. No seizure activity. Pupils equal and symmetric to light. He withdraws to painful stimulation all 4 extremities. - Labs CBC & Chem 7: 02/27/19 05:20 02/27/19 05:20 Labs: Abnormal Lab Results - Last 24 Hours (Table) 02/26/19 02/26/19 02/26/19 Range/Units 12:00 18:06 20:17 WBC (3.8-10.6) k/uL RBC (4.30-5.90) m/uL Hgb (13.0-17.5) gm/dL Hct (39.0-53.0) % RDW (11.5-15.5) % Neutrophils # (1.3-7.7) k/uL Monocytes # (0-1.0) k/uL ABG pH (7.35-7.45) ABG pO2 (83-108) mmHg ABG Total CO2 (19-24) mmol/L Sodium (137-145) mmol/L Potassium (3.5-5.1) mmol/L Chloride (98-107) mmol/L Carbon Dioxide (22-30) mmol/L BUN (9-20) mg/dL Creatinine (0.66-1.25) mg/dL Glucose (74-99) mg/dL POC Glucose (mg/dL) 129 H 143 H 141 H (75-99) mg/dL Calcium (8.4-10.2) mg/dL Ionized Calcium Ann (4.5-5.3) mg/dL Phosphorus (2.5-4.5) mg/dL Total Bilirubin (0.2-1.3) mg/dL AST (17-59) U/L ALT (21-72) U/L Alkaline Phosphatase (38-126) U/L Total Protein (6.3-8.2) g/dL Albumin (3.5-5.0) g/dL 02/26/19 02/27/19 02/27/19 Range/Units 23:59 04:15 04:35 WBC 43.4 H (3.8-10.6) k/uL RBC 2.31 L (4.30-5.90) m/uL Hgb 7.5 L D (13.0-17.5) gm/dL Hct 21.9 L (39.0-53.0) % RDW 15.9 H (11.5-15.5) % Neutrophils # 40.4 H (1.3-7.7) k/uL Monocytes # 1.2 H (0-1.0) k/uL ABG pH 7.33 L (7.35-7.45) ABG pO2 78 L (83-108) mmHg ABG Total CO2 25 H (19-24) mmol/L Sodium (137-145) mmol/L Potassium (3.5-5.1) mmol/L Chloride (98-107) mmol/L Carbon Dioxide (22-30) mmol/L BUN (9-20) mg/dL Creatinine (0.66-1.25) mg/dL Glucose (74-99) mg/dL POC Glucose (mg/dL) 143 H (75-99) mg/dL Calcium (8.4-10.2) mg/dL Ionized Calcium Ann (4.5-5.3) mg/dL Phosphorus (2.5-4.5) mg/dL Total Bilirubin (0.2-1.3) mg/dL AST (17-59) U/L ALT (21-72) U/L Alkaline Phosphatase (38-126) U/L Total Protein (6.3-8.2) g/dL Albumin (3.5-5.0) g/dL 02/27/19 02/27/19 02/27/19 Range/Units 04:35 05:20 05:20 WBC 45.3 H (3.8-10.6) k/uL RBC 2.37 L (4.30-5.90) m/uL Hgb 7.6 L (13.0-17.5) gm/dL Hct 22.5 L (39.0-53.0) % RDW 16.0 H (11.5-15.5) % Neutrophils # (1.3-7.7) k/uL Monocytes # (0-1.0) k/uL ABG pH (7.35-7.45) ABG pO2 (83-108) mmHg ABG Total CO2 (19-24) mmol/L Sodium 127 L (137-145) mmol/L Potassium 5.4 H (3.5-5.1) mmol/L Chloride 94 L (98-107) mmol/L Carbon Dioxide 19 L (22-30) mmol/L BUN 79 H (9-20) mg/dL Creatinine 3.60 H (0.66-1.25) mg/dL Glucose 108 H (74-99) mg/dL POC Glucose (mg/dL) (75-99) mg/dL Calcium 4.8 L* (8.4-10.2) mg/dL Ionized Calcium Ann 2.8 L* 2.8 L* (4.5-5.3) mg/dL Phosphorus 8.2 H (2.5-4.5) mg/dL Total Bilirubin 3.4 H (0.2-1.3) mg/dL AST 936 H (17-59) U/L ALT 177 H (21-72) U/L Alkaline Phosphatase 281 H (38-126) U/L Total Protein 5.3 L (6.3-8.2) g/dL Albumin 2.3 L (3.5-5.0) g/dL 02/27/19 Range/Units 05:32 WBC (3.8-10.6) k/uL RBC (4.30-5.90) m/uL Hgb (13.0-17.5) gm/dL Hct (39.0-53.0) % RDW (11.5-15.5) % Neutrophils # (1.3-7.7) k/uL Monocytes # (0-1.0) k/uL ABG pH (7.35-7.45) ABG pO2 (83-108) mmHg ABG Total CO2 (19-24) mmol/L Sodium (137-145) mmol/L Potassium (3.5-5.1) mmol/L Chloride (98-107) mmol/L Carbon Dioxide (22-30) mmol/L BUN (9-20) mg/dL Creatinine (0.66-1.25) mg/dL Glucose (74-99) mg/dL POC Glucose (mg/dL) 132 H (75-99) mg/dL Calcium (8.4-10.2) mg/dL Ionized Calcium Ann (4.5-5.3) mg/dL Phosphorus (2.5-4.5) mg/dL Total Bilirubin (0.2-1.3) mg/dL AST (17-59) U/L ALT (21-72) U/L Alkaline Phosphatase (38-126) U/L Total Protein (6.3-8.2) g/dL Albumin (3.5-5.0) g/dL Microbiology - Last 24 Hours (Table) 02/23/19 10:15 Blood Culture - Preliminary Blood No Growth after 72 hours 02/23/19 20:07 Gram Stain - Final Sputum Sputum Culture - Final Freda albicans Assessment and Plan Plan: Assessment 1 acute hypoxic respiratory failure secondary to pneumonia. The patient had initially an influenza infection treated and subsequently presented with a strep pyogenes pneumonia and sepsis and multisystem organ failure 2 acute hypoxic respiratory failure currently intubated on a mechanical ventilator 3 acute tension pneumothorax involving the left lung post chest tube insertion 4 acute septic shock secondary to above with multisystem organ failure, the patient is still on a low dose of pressors for hemodynamic support. The patient had a triple lumen catheter in place 5 acute kidney injury with subsequent dialysis-dependent renal failure. His last session of hemodialysis was 2 days ago 6 profound shock and hypotension with development of ischemic toes and fingers secondary to high pressor use. The patient has necrotic digits in the toes bilaterally and the right hand 7 coronary artery disease with previous coronary intervention and stenting 8 rhabdomyolysis, recovered 9 profound metabolic acidosis, improved 10 fluid overload secondary to aggressive fluid resuscitation 11 hyperlipidemia 12 hypertension, history of 13 history of peripheral neuropathy 14 ongoing fever with leukocytosis, consider upper infection Plan The necessity ventilator changes were done. We'll monitor the blood gases. Currently the patient is much more success with the mechanical ventilator. Jing shankar see the above-mentioned changes as noted. Meanwhile, continue the same antibiotic coverage. Obtain sputum Gram stain and culture, urine culture and blood cultures. May need to consider to broaden antibiotic coverage as the patient is having ongoing infection, fever and leukocytosis. Continue enteral feeding for nutritional support. Wean off pressors if possible. Vascular surgeries on the case regarding the necrotic digits which are being monitored for now. Rest of the treatment essentially supportive. The patient is on a hydrocortisone stress dose at was initiated earlier by my partner. This will be kept for now. Keep the left-sided chest tube in place and monitor the air leak. Unable to remove the chest tube for now as the patient has persistent air leak within the left lung. We are replacing the electrolytes including the lower calcium level. Hemodialysis today. We'll continue to follow. Condition is critical. He is a DO NOT RESUSCITATE CODE STATUS. Prognosis poor baseline above-mentioned comorbidities. Critically care evaluation, more than 30 minutes. Time with Patient: Greater than 30
[2019-02-27 12:04] LABS: Glucose,Whole Blood 108 mg/dL (75-99)
[2019-02-27 12:59] LABS: Anisocytosis Slight; HCT 26.2 % (39.0-53.0); Hypochromasia Slight; MCV 96.9 fL (80.0-100.0); Macrocytosis Slight; Mean Platelet Volume 9.5; Platelet Count 238 k/uL (150-450); Poikilocytosis Slight; RBC 2.71 m/uL (4.30-5.90); RDW 16.2 % (11.5-15.5); WBC 47.2 k/uL (3.8-10.6)
[2019-02-27 13:19] LABS: Potassium 6.1 mmol/L (3.5-5.1)
[2019-02-27 13:24] LABS: MCH 31.6 pg (25.0-35.0); MCHC 33.1 g/dL (31.0-37.0)
[2019-02-27 13:25] LABS: HGB 8.7 gm/dL (13.0-17.5)
[2019-02-27 14:17] LABS: Albumin 2.5 g/dL (3.5-5.0); Calcium 5.1 mg/dL (8.4-10.2); Total Bilirubin 3.8 mg/dL (0.2-1.3); Total Protein 5.8 g/dL (6.3-8.2)
[2019-02-27 14:41] LABS: Band Neutrophils % 2 %; Lymphocytes # (M) 1.89 k/uL (1.0-4.8); Monocytes # (M) 1.42 k/uL (0-1.0); Neutrophils % (M) 91 %; Nucleated Red Blood Cells 0 /100 WBC (0-0); Total Cells Counted 100
[2019-02-27 17:53] LABS: Glucose,Whole Blood 127 mg/dL (75-99)
--- NOTE | 2019-02-27 17:55 | PN ---
PROGRESS NOTE DATE OF SERVICE: 02/27/2019 This 63-year-old gentleman who was admitted with acute influenza A, complicated pneumonia, sepsis, multiorgan failure is being closely monitored. Patient also has spontaneous left pneumothorax with thoracostomy tube placement. The patient also had renal failure. Patient on hemodialysis. The patient has multiple . Patient being closely monitored in ICU at this time. PAST MEDICAL HISTORY: Reviewed. REVIEW OF SYSTEMS: Could not be taken, the patient is mechanically ventilated and sedated. CURRENT MEDICATIONS: Reviewed and include: 1. DuoNeb q.i.d. and p.r.n. 2. Aspirin 81 mg. 3. PhosLo 667. 4. TUMS t.i.d. 5. Rocephin 2 grams daily. 6. Peridex. 7. Clindamycin. 8. Vitamin D. 9. Solu-Cortef 100 mg IV q.8h. 10.NovoLog. 11.Levemir. 12.Habitrol. 13.Levophed drip. 14.Protonix. 15.Propofol. PHYSICAL EXAM: Patient is mechanically ventilated and sedated. Pulse 94, blood pressure 90/50, respiratory 24, temperature 101.9, pulse ox 94% on mechanical ventilation, vent settings noted. 50% FiO2. HEENT: Conjunctivae normal. Oral mucosa moist. Neck is no jugular venous distention. No carotid bruit. No lymph node enlargement. Cardiovascular : S1, S2 muffled. RESPIRATORY: Breath sounds diminished in the bases. Bilateral scattered rhonchi and crackles. ABDOMEN: Soft, nontender. Legs are bilateral lower limb ischemia present. CENTRAL NERVOUS SYSTEM: No focal deficits. LABS: At this time, WBC 14, hemoglobin 8.7. Otherwise sodium is 127, potassium 6.1, creatinine is 4.01. Total bilirubin 3.8 and AST is 992, ALT is 207, albumin is 2.5. Otherwise, the chest x-ray reviewed. ASSESSMENT: 1. Acute influenza A complicated by strep pneumonia as well as severe sepsis, hypotension, septic shock, as well as acute hypoxic respiratory failure with ARDS on mechanical ventilation. 2. Recurrent left pneumothorax, status post Thoravent time two and chest tubes times two. 3. Multiorgan failure. 4. Increased WBC, leukemoid reaction. 5. Anemia, normocytic. 6. Hyponatremia. 7. Hyperkalemia secondary to renal failure. 8. Elevated bilirubin and AST, ALT, hepatitis secondary to sepsis. 9. History of coronary artery disease, stent placement. 10.History of congestive heart failure with chronic diastolic dysfunction, ejection fraction 50-60 percent. 11.Lactic acidosis. 12.Acute kidney injury. 13.Hypertension. 14.Hyperlipidemia. 15.History of nicotine dependence. 16.Obesity with body mass index 36.7. RECOMMENDATIONS AND DISCUSSION: This 63-year-old gentleman who presented with multiple complex medical issues, we will monitor the patient closely. Continue the current medications. Continue with broad- spectrum IV antibiotics. Pancultures being repeated at this time. Continue the hemodialysis. Monitor electrolytes closely. Pressor support. Otherwise, the patient is on IV steroids. Guarded prognosis because of multiple complex medical issues. Further recommendations to follow. MMODL / IJN: [id number] / MTDD
[2019-02-27 19:40] LABS: Cholesterol 290 mg/dL (<200); HDL Cholesterol 11 mg/dL (40-60)
[2019-02-27 19:57] LABS: Triglycerides 3585 mg/dL (<150)
[2019-02-27] MEDS: MIDAZOLAM HCL 50 MG in SODIUM CHLORIDE 0.9% 40 ML IV SCH (21:03)
[2019-02-27] MEDS: NOREPINEPHRINE 32 MG in SODIUM CHLORIDE 0.9% 218 ML IV SCH (21:04)
[2019-02-27] MEDS: ERGOCALCIFEROL 50,000 UNIT CAP PO SCH (22:29)
[2019-02-27] MEDS: INSULIN DETEMIR (LEVEMIR) 100 UNIT/ML SYR SQ SCH (22:46)
[2019-02-27 23:58] LABS: Glucose,Whole Blood 97 mg/dL (75-99)
[2019-02-28] MEDS: MIDAZOLAM HCL 50 MG in SODIUM CHLORIDE 0.9% 40 ML IV SCH ×6 (00:04→21:15)
[2019-02-28] MEDS: HYDROmorphone 1 MG/ML 1 ML SYRINGE IVP PRN (00:37)
[2019-02-28] MEDS: INSULIN ASPART (NovoLOG) 100 UNIT/ML VIAL SQ SCH ×4 (00:46→18:15)
[2019-02-28] MEDS: ARTIFICIAL TEARS-HYPROMELLOSE DROPS 15 ML BTL BOTH EYES SCH ×7 (00:46→23:47)
[2019-02-28] MEDS: IPRATROPIUM-ALBUTEROL 3 ML NEB INHALATION SCH ×6 (03:15→23:31)
[2019-02-28 04:22] LABS: ABG Base Excess -4.1 mmol/L; ABG HCO3 24 mmol/L (21-25); ABG Oxygen Saturation 95.4 % (94-97); ABG PCO2 59 mmHg (35-45); ABG PH 7.21 (7.35-7.45); ABG PO2 96 mmHg (83-108); ABG TCO2 26 mmol/L (19-24)
[2019-02-28] MEDS: HYDROCORTISONE SUCCINATE 100 MG/2 ML VIAL IV SCH ×3 (05:00→21:17)
[2019-02-28 05:01] LABS: Anisocytosis Slight; HCT 24.9 % (39.0-53.0); Hypochromasia Slight; MCV 96.5 fL (80.0-100.0); Macrocytosis Slight; Mean Platelet Volume 9.6; Platelet Count 249 k/uL (150-450); Poikilocytosis Moderate; RBC 2.58 m/uL (4.30-5.90); RDW 16.4 % (11.5-15.5)
[2019-02-28] MEDS: CALCIUM ACETATE 667 MG CAP PO SCH ×3 (05:01→17:36)
[2019-02-28 05:21] LABS: HGB 8.3 gm/dL (13.0-17.5); MCH 31.8 pg (25.0-35.0); MCHC 33.5 g/dL (31.0-37.0)
[2019-02-28 05:53] LABS: Ionized Calcium 3.5 mg/dL (4.5-5.3)
[2019-02-28 06:10] LABS: Potassium 4.9 mmol/L (3.5-5.1)
[2019-02-28 06:46] LABS: Glucose,Whole Blood 124 mg/dL (75-99)
[2019-02-28 06:57] LABS: Albumin 2.4 g/dL (3.5-5.0); Total Protein 5.7 g/dL (6.3-8.2)
[2019-02-28 06:58] LABS: Band Neutrophils % 10 %; Eosinophils # (M) 0.48 k/uL (0-0.7); Lymphocytes # (M) 1.43 k/uL (1.0-4.8); Metamyelocytes # (M) 0.95 k/uL (0); Metamyelocytes % 2 %; Monocytes # (M) 0.48 k/uL (0-1.0); Myelocytes # (M) 0.48 k/uL (0); Myelocytes % 1 %; Neutrophils % (M) 84 %; Nucleated Red Blood Cells 4 /100 WBC (0-0); Total Cells Counted 200; WBC 47.6 k/uL (3.8-10.6)
[2019-02-28 06:59] LABS: Polychromasia Present
[2019-02-28 07:00] LABS: Calcium 6.1 mg/dL (8.4-10.2); Large Platelets Present
[2019-02-28] MEDS ORDERED: CALCIUM GLUCONATE 1 GM in SODIUM CHLORIDE 0.9% 100 ML IVPB ONE (07:13)
[2019-02-28] MEDS: ASPIRIN 81 MG PO SCH (07:43)
[2019-02-28] MEDS: CLINDAMYCIN 600 MG in DEXTROSE 5% IN WATER 50 ML IVPB SCH ×6 (07:43→23:47)
[2019-02-28] MEDS: CHLORHEXIDINE GLUCONATE 15 ML CUP MUCOUS MEM SCH ×2 (07:43→21:18)
[2019-02-28] MEDS: PANTOPRAZOLE 40 MG/10 ML VIAL IVP SCH ×2 (07:43→21:18)
[2019-02-28] MEDS: NICOTINE 21MG/24HR PATCH TRANSDERM SCH (07:44)
[2019-02-28] MEDS: CALCIUM CARBONATE 500 MG CHEWABLE PO SCH ×2 (07:44→20:24)
--- NOTE | 2019-02-28 08:57 | P.PN ---
Subjective Progress Note Date: 02/28/19 Principal diagnosis: Spontaneous left sided pneumothorax, acute respiratory failure secondary to influenza A and streptococcus pyogenes pneumonia, acute kidney injury secondary to acute tubular necrosis due to hypotension and sepsis, mild troponin elevation. History of CAD with prior stenting, hypertension, hyperlipidemia, chronic tobacco abuse. Thrombocytopenia. Rhabdomyolysis. POD #10 left chest thoravent placement x 2 and left thoracostomy tube placement POD #9 left femoral dialysis catheter placed by Dr. Barker POD #8 placement of second left thoracostomy tube for recurrent pneumothorax despite left thoracostomy tube in place The patient is currently laying in bed in the intensive care unit, still mechanically ventilated. Remains on levo, increased from yesterday. Chest tube remains in place. Currently sinus tach. Sedated on Versed, propofol stopped due to TG 3585. Has received daily dialysis. Remains febrile, T-max in last 24 hours 102.5F. Remains on ceftriaxone, clindamycin per Dr. Shipley. Blood culture from February 23 still pending but no growth in 96 hours, sputum culture reporting Freda, pleural fluid culture from February 18 negative. Sputum and urine culture redrawn yesterday. Patient had episode of hypoxia last night, FiO2 increased to 80% per Dr. Wilson. Objective - Vital Signs Vital signs: Vital Signs Temp 100.6 F H 02/28/19 08:00 Pulse 123 H 02/28/19 08:00 Resp 25 H 02/28/19 08:00 BP 95/51 02/28/19 07:30 Pulse Ox 94 L 02/28/19 08:00 Intake & Output 02/27/19 02/28/19 02/28/19 18:59 06:59 18:59 Intake Total 8744.164 4299.688 46 Output Total 100 74 55 Balance 1110.962 935.688 -9 Weight 115.8 kg Intake: IV 462 356 26 Calcium Gluconate 2 gm In 100 Sodium Chloride 0.9% 100 ml @ 100 mls/hr IVPB ONCE ONE Rx#:[id number] Clindamycin 600 mg In 50 50 Dextrose 5% in Water 50 ml @ 50 mls/hr IVPB Q8HR [facility] Rx#:[id number] Sodium Chloride 0.9% 1, 240 240 20 000 ml @ 20 mls/hr IV . Q24H [facility] Rx#:[id number] pressure bags 72 66 6 Intake, IV Titration 348.962 413.688 Amount Midazolam HCl 50 mg In 132.716 Sodium Chloride 0.9% 40 ml @ 5 MG/HR 5 mls/hr IV .Q10H [facility] Rx#:[id number] Norepinephrine 32 mg In 48.962 103.294 Sodium Chloride 0.9% 218 ml @ 0.05 MCG/KG/MIN 2. 233 mls/hr IV .Q24H [facility] Rx#:[id number] Propofol 1,000 mg In 300 127.678 Empty Bag 1 bag @ Titrate IV .Q0M [facility] Rx#: [id number] cefTRIAXone 2 gm In 50 Sodium Chloride 0.9% 50 ml @ 100 mls/hr IVPB Q24H [facility] Rx#:[id number] Tube Feeding 340 240 20 Other 60 Output: Chest Tube Drainage 80 70 55 Chest Tube Left 80 70 55 Urine 20 4 0 Other: Voiding Method Indwelling Catheter Indwelling Catheter ABP, PAP, CO, CI - Last Documented Arterial Blood Pressure 100/52 - Constitutional General appearance: Present: no acute distress, obese - Respiratory Details: Lung sounds diminished bilaterally with coarse breath sounds in the bases. Respirations even, non-labored on mechanical ventilation. Current ventilator settings VC+ mode, FiO2 80%, TV 500, RR 25 PEEP 5. 8.0 ETT present, 23 at the lip. Left chest tube to continuous wall suction, 55 mL serous drainage overnight, 150 mL output in 24 hours, continuous air leak remains present. - Cardiovascular Details: S1/S2 present. Regular rate and rhythm, sinus rhythm on telemetry. Doppler peripheral pulses bilaterally. Lower extremity edema present. SCDs present. Left radial arterial line, right internal jugular triple lumen central line present. - Gastrointestinal Gastrointestinal Comment(s): Abdomen soft, non-tender, slightly distended. Active bowel sounds present x 4 quadrants. OGT present, tube feeding infusing at 20 mL/hr. Patient has had multiple loose stools, not documented in I/O. - Genitourinary Genitourinary Comment(s): Loo present, virtually no urine output overnight. Left femoral temporary dialysis catheter present. - Integumentary Integumentary Comment(s): Skin is cool. Fluid blisters present to upper extremities and thighs. Bilateral lower extremities mottled with blue/black toes, fingers blue/black as well. - Psychiatric Psychiatric Comment(s): Currently sedated on 12 mg/hr of Versed - Allied health notes Allied health notes reviewed: nursing - Labs CBC & Chem 7: 02/28/19 04:35 02/28/19 04:35 Labs: Abnormal Lab Results - Last 24 Hours (Table) 02/27/19 02/27/19 02/27/19 Range/Units 11:53 12:45 12:45 WBC 47.2 H (3.8-10.6) k/uL RBC 2.71 L (4.30-5.90) m/uL Hgb 8.7 L (13.0-17.5) gm/dL Hct 26.2 L (39.0-53.0) % RDW 16.2 H (11.5-15.5) % Neutrophils # (Manual) 43.80 H (1.3-7.7) k/uL Monocytes # (Manual) 1.42 H (0-1.0) k/uL Metamyelocytes # (Man) (0) k/uL Myelocytes # (Manual) (0) k/uL Nucleated RBCs (0-0) /100 WBC ABG pH (7.35-7.45) ABG pCO2 (35-45) mmHg ABG Total CO2 (19-24) mmol/L Sodium 127 L (137-145) mmol/L Potassium 6.1 H* (3.5-5.1) mmol/L Chloride 92 L (98-107) mmol/L Carbon Dioxide 17 L (22-30) mmol/L BUN 85 H (9-20) mg/dL Creatinine 4.01 H (0.66-1.25) mg/dL Glucose 128 H (74-99) mg/dL POC Glucose (mg/dL) 108 H (75-99) mg/dL Calcium 5.1 L* (8.4-10.2) mg/dL Ionized Calcium Ann (4.5-5.3) mg/dL Total Bilirubin 3.8 H (0.2-1.3) mg/dL AST 992 H (17-59) U/L ALT 207 H (21-72) U/L Alkaline Phosphatase 367 H (38-126) U/L Total Protein 5.8 L (6.3-8.2) g/dL Albumin 2.5 L (3.5-5.0) g/dL Triglycerides (<150) mg/dL Cholesterol (<200) mg/dL HDL Cholesterol (40-60) mg/dL 02/27/19 02/27/19 02/28/19 Range/Units 17:42 18:55 04:18 WBC (3.8-10.6) k/uL RBC (4.30-5.90) m/uL Hgb (13.0-17.5) gm/dL Hct (39.0-53.0) % RDW (11.5-15.5) % Neutrophils # (Manual) (1.3-7.7) k/uL Monocytes # (Manual) (0-1.0) k/uL Metamyelocytes # (Man) (0) k/uL Myelocytes # (Manual) (0) k/uL Nucleated RBCs (0-0) /100 WBC ABG pH 7.21 L (7.35-7.45) ABG pCO2 59 H (35-45) mmHg ABG Total CO2 26 H (19-24) mmol/L Sodium (137-145) mmol/L Potassium (3.5-5.1) mmol/L Chloride (98-107) mmol/L Carbon Dioxide (22-30) mmol/L BUN (9-20) mg/dL Creatinine (0.66-1.25) mg/dL Glucose (74-99) mg/dL POC Glucose (mg/dL) 127 H (75-99) mg/dL Calcium (8.4-10.2) mg/dL Ionized Calcium Ann (4.5-5.3) mg/dL Total Bilirubin (0.2-1.3) mg/dL AST (17-59) U/L ALT (21-72) U/L Alkaline Phosphatase (38-126) U/L Total Protein (6.3-8.2) g/dL Albumin (3.5-5.0) g/dL Triglycerides 3585 H (<150) mg/dL Cholesterol 290 H (<200) mg/dL HDL Cholesterol 11 L (40-60) mg/dL 02/28/19 02/28/19 02/28/19 Range/Units 04:35 04:35 06:34 WBC 47.6 H (3.8-10.6) k/uL RBC 2.58 L (4.30-5.90) m/uL Hgb 8.3 L (13.0-17.5) gm/dL Hct 24.9 L (39.0-53.0) % RDW 16.4 H (11.5-15.5) % Neutrophils # (Manual) 44.70 H (1.3-7.7) k/uL Monocytes # (Manual) (0-1.0) k/uL Metamyelocytes # (Man) 0.95 H (0) k/uL Myelocytes # (Manual) 0.48 H (0) k/uL Nucleated RBCs 4 H (0-0) /100 WBC ABG pH (7.35-7.45) ABG pCO2 (35-45) mmHg ABG Total CO2 (19-24) mmol/L Sodium 128 L (137-145) mmol/L Potassium (3.5-5.1) mmol/L Chloride 94 L (98-107) mmol/L Carbon Dioxide 21 L (22-30) mmol/L BUN 57 H (9-20) mg/dL Creatinine 2.91 H (0.66-1.25) mg/dL Glucose 106 H (74-99) mg/dL POC Glucose (mg/dL) 124 H (75-99) mg/dL Calcium 6.1 L* (8.4-10.2) mg/dL Ionized Calcium Ann 3.5 L* (4.5-5.3) mg/dL Total Bilirubin 4.0 H (0.2-1.3) mg/dL AST 706 H (17-59) U/L ALT 200 H (21-72) U/L Alkaline Phosphatase 286 H (38-126) U/L Total Protein 5.7 L (6.3-8.2) g/dL Albumin 2.4 L (3.5-5.0) g/dL Triglycerides (<150) mg/dL Cholesterol (<200) mg/dL HDL Cholesterol (40-60) mg/dL Microbiology - Last 24 Hours (Table) 02/27/19 11:15 Sputum Culture - Preliminary Sputum 02/27/19 10:00 Urine Culture - Preliminary Urine,Catheterized 02/23/19 10:15 Blood Culture - Preliminary Blood No Growth after 96 hours - Imaging and Cardiology Chest x-ray: image reviewed Assessment and Plan Assessment: 1. Spontaneous left pneumothorax, status post thoravent and thoracostomy tube placement 2. Acute hypoxic respiratory failure with influenza A and streptococcus pyrogenes pneumonia, ARDS with prolonged mechanical ventilation 3. Acute kidney injury secondary to acute tubular necrosis, status post temporary dialysis placement with daily dialysis 4. Septic shock with lactic acidosis 5. Multisystem organ failure 6. Troponin elevation 7. History of CAD with prior stenting 8. History of hypertension, currently hypotensive on levo 9. Hyperlipidemia 10. Chronic tobacco dependance 11. Thrombocytopenia, HIT panel negative 12. Rhabdomyolysis Plan: 1. Continue left pleural chest tube to continuous wall suction, will monitor for resolution of air leak. 2. Will monitor daily labs, x-rays 3. Wean ventilator when able. Ventilator management per pulmonology 4. Bronchodilators, steroids per pulmonology 5. Antibiotics per infectious disease. Follow cultures. 6. GI/DVT prophylaxis with protonix, SCDs. 7. Avoid nephrotoxic agents. Continue hemodiaysis per nephrology. Wean levo as able. 8. Medical management of other comorbid conditions per primary care service. 9. Will continue to follow. Time with Patient: Greater than 30
--- NOTE | 2019-02-28 09:06 | XR ---
EXAMINATION TYPE: XR chest 1V portable DATE OF EXAM: 02/28/2019 COMPARISON: 02/27/2019 HISTORY: Pneumothorax TECHNIQUE: Single frontal view of the chest is obtained. FINDINGS: Left-sided pneumothorax is noted and measures approximately 10-15% and is increased in siz e from prior exam left sided chest tube is unchanged in position. Patchy basilar infiltrates and/or a telectasis with small effusions remain stable. Endotracheal and NG tubes are unchanged in position. T he heart is stable. Hilar and mediastinal structures are within normal limits. Degenerative changes a re seen of the thoracic spine. Arthropathy of the shoulders. IMPRESSION: 1. Left-sided pneumothorax is increased in size from prior exam measuring approximately 15%. Chest tu be remains in position. 2. Bilateral infiltrate and pleural effusion correlate for CHF. Underlying pneumonia not excluded.
--- NOTE | 2019-02-28 12:16 | P.PN ---
Subjective Progress Note Date: 02/28/19 53-year-old male patient was being seen in the intensive care unit for respiratory failure, pneumonia, sepsis, multisystem organ failure. The patient was admitted on 02/16/2019. This morning the patient is sedated with Diprivan and is calm and comfortable and Diprivan is running at 60 g per KG per minute. He remains intubated on a mechanical ventilator. I noted that the patient was quite uncomfortable while being on a mechanical ventilator. He was double stacking and was breathing fast and he was having persistent amount of air leak in the Pleur-evac. Based on this, I made adjustments, and switch this patient to a VC mode with a tidal volume of 500, respiratory rate of 25, I time of 1.1 and this is a VC plus molds. I kept FiO2 at 50%. Awaiting subsequent blood gases. Nevertheless, with these changes, the patient is much more comfortable and synchronous with the mechanical ventilator. We don't have to given additional sedation such as Dilaudid or fentanyl. Meanwhile, the patient still has a left-sided chest tube. There is obvious air leak and the left-sided chest tube. Amount of fluid and urinating over the past 24 hours is minimal at this point in time. Chest x-ray shows bilateral pulmonary infiltrates and left-sided chest tube in place and there is no evidence of any sizable pneumothorax. Hemodynamically, the patient is on IV fluids currently running at 28 an hour. The patient is also on pressors and norepinephrine infusion is running at 10 g per minute. The patient is on dialysis. His last round of the analysis was done on 02/25/2019 where a total of 1.5 L of fluid was removed. He is about to have another session of dialysis today. He is dialysis catheter is inserted in his left femoral vein. He has an EF around 6065% and this was done in time of admission. In terms of his infection, the patient is still spiking temperature with a T-max of 101.3. His current temperatures 100.8. I noted ongoing rise in his white count and obviously there is a concern for reinfection. History volume a Right IJ seems to be quite clean and intact. He also has a femoral dialysis catheter. His skin is swollen and there is some areas of blistering and vesical formation due to fluid overload on multiple locations been no evidence of any cellulitis. He has cyanotic digits in his feet bilaterally and his right hand fingers and these are mainly related to the utilization of high dose of pressors at time of his septic shock. He is current antibiotic coverage including a combination of Rocephin and clindamycin per IDs recommendation. He is taking Nepro at the rate of 20 mL an hour. His most recent sputum Gram stain and culture showed Freda and strep pyogenous. On today's evaluation of 02/28/2019, the patient is doing poorly. The patient was found to have significant toxicity from Diprivan. The serum triglyceride was higher than 3500 and at that point the Diprivan was discontinued and the patient was started on Versed drip which is currently running at 12 mg an hour. The patient remains on a medical ventilator. He has think is on a mechanical ventilator however his having excess amount of leak from the chest tube and from opening from previous chest tube insertion. He is losing approximately 150 mL of volume as noted in the mechanical ventilator. He remains on assist control mode at the rate of 25, I time of 1.1, tidal volume of 500 and FiO2 has been increased up to 80% as the patient was having some issues with oxygenation overn ight. The morning blood gases showed a pH of 7.1 with a pCO2 of 59 and pO2 of 9600% FiO2. Chest x-ray from today shows a little bit of a left-sided pneumothorax which is increased in size compared to the yesterday's film and is currently at 15%. ET tube is in a good location. There is better pleural effusion consistent with CHF. Hemodynamically, the patient remains hypotensive and the patient is still requiring pressors initially at 20 mics and currently is up to 30 mics for blood pressure maintenance. His cardiac rhythm is sinus. He is showing ongoing signs of septicemia. His febrile. His white cell count is at 47. We have sent new blood cultures from the dialysis catheter and the triple-lumen catheter and the patient also has had sputum and blood and urine cultures. The results are still pending for now and there is no new cultures available at this point in time. Infectious disease on the case and the patient has been kept on a combination of clindamycin and Rocephin. The patient is not producing any urine output. He underwent hemodialysis yesterday where 2 L of fluid was also removed during the dialysis process. His creatinine is up to 2.9. Potassium level improved is down to 4.9. LFTs remain abnormal consistent with shock liver. Calcium level is low with an ionized calcium level of 3.7 the calcium was replaced. This morning we noted that the patient is having some abdominal distention. Tube feeds was stopped and the residual is quite high mortality thousand. This was placed to suctioning and currently the patient is nothing by mouth for now. The follow-up CPK level is pending from today. Meanwhile, the patient continues to have extensive digital necrosis and 3 of the extremities mainly the feet and the left upper extremity. A 9 is still func tional for now. Objective - Vital Signs Vital signs: Vital Signs Temp 100.4 F H 02/28/19 10:30 Pulse 112 H 02/28/19 11:30 Resp 28 H 02/28/19 11:30 BP 95/51 02/28/19 07:30 Pulse Ox 98 02/28/19 11:30 Intake & Output 02/27/19 02/28/19 02/28/19 18:59 06:59 18:59 Intake Total 6680.303 6230.688 346.25 Output Total 675 90 8479 Balance 1110.962 935.688 -1208.75 Weight 115.8 kg Intake: IV 462 356 240 Calcium Gluconate 1 gm In 100 Sodium Chloride 0.9% 100 ml @ 100 mls/hr IVPB ONCE ONE Rx#:[id number] Calcium Gluconate 2 gm In 100 Sodium Chloride 0.9% 100 ml @ 100 mls/hr IVPB ONCE ONE Rx#:[id number] Clindamycin 600 mg In 50 50 50 Dextrose 5% in Water 50 ml @ 50 mls/hr IVPB Q8HR NI Rx#:[id number] Sodium Chloride 0.9% 1, 240 240 60 000 ml @ 20 mls/hr IV . Q24H NI Rx#:[id number] pressure bags 72 66 30 Intake, IV Titration 348.962 413.688 36.25 Amount Midazolam HCl 50 mg In 132.716 36.25 Sodium Chloride 0.9% 40 ml @ 5 MG/HR 5 mls/hr IV .Q10H NI Rx#:[id number] Norepinephrine 32 mg In 48.962 103.294 Sodium Chloride 0.9% 218 ml @ 0.05 MCG/KG/MIN 2. 233 mls/hr IV .Q24H NI Rx#:[id number] Propofol 1,000 mg In 300 127.678 Empty Bag 1 bag @ Titrate IV .Q0M NI Rx#: [id number] cefTRIAXone 2 gm In 50 Sodium Chloride 0.9% 50 ml @ 100 mls/hr IVPB Q24H NI Rx#:[id number] Tube Feeding 340 240 40 Other 60 30 Output: Chest Tube Drainage 80 70 55 Chest Tube Left 80 70 55 Gastric Drainage 1500 Urine 20 4 0 Other: Voiding Method Indwelling Catheter Indwelling Catheter Indwelling Catheter ABP, PAP, CO, CI - Last Documented Arterial Blood Pressure 90/50 - Exam Gen. appearance the patient has single-vessel a mechanical ventilator. Calm and comfortable and sedated. Orogastric and orotracheal tube are both in place. Head exam was generally normal. There was no scleral icterus or corneal arcus. Mucous membranes were moist. Neck was supple and without jugular venous distension, thyromegaly, or carotid bruits. Carotids were easily palpable bilaterally. There was no adenopathy. The patient has a right IJ triple-lumen catheter in place. Lungs sounds are diminished bilaterally and there is scattered rhonchi heard throughout the lung garsia bilaterally. There is a left-sided chest tube in place with ongoing air leak. Cardiac exam revealed the PMI to be normally situated and sized. The rhythm was regular and no extrasystoles were noted during several minutes of auscultation. The first and second heart sounds were normal and physiologic splitting of the second heart sound was noted. There were no murmurs, rubs, clicks, or gallops. Abdominal exam revealed normal bowel sounds. The abdomen was soft, non-tender, and without masses, organomegaly, or appreciable enlargement of the abdominal aorta. Extremities revealed cyanotic digits mainly involving the toes bilaterally and the fingers of the right hand. The left lower extremity and the foot is quite cold. There is positive Doppler signal. Right lower extremity is warm and pulses can be palpated. The right radial pulse is weak. Left radial pulse is present and the patient has a Artline catheter in place. There is also areas of skin excoriation over the right upper extremity at the site of a radial art line insertion. No clear-cut areas of cellulitis. Vesical formation due to fluid overload. Skin as mentioned above. Neurologically the patient sedated and calm and comfortable. No seizure activi ty. Pupils equal and symmetric to light. He withdraws to painful stimulation all 4 extremities. - Labs CBC & Chem 7: 02/28/19 04:35 02/28/19 04:35 Labs: Abnormal Lab Results - Last 24 Hours (Table) 02/27/19 02/27/19 02/27/19 Range/Units 12:45 12:45 17:42 WBC 47.2 H (3.8-10.6) k/uL RBC 2.71 L (4.30-5.90) m/uL Hgb 8.7 L (13.0-17.5) gm/dL Hct 26.2 L (39.0-53.0) % RDW 16.2 H (11.5-15.5) % Neutrophils # (Manual) 43.80 H (1.3-7.7) k/uL Monocytes # (Manual) 1.42 H (0-1.0) k/uL Metamyelocytes # (Man) (0) k/uL Myelocytes # (Manual) (0) k/uL Nucleated RBCs (0-0) /100 WBC ABG pH (7.35-7.45) ABG pCO2 (35-45) mmHg ABG Total CO2 (19-24) mmol/L Sodium 127 L (137-145) mmol/L Potassium 6.1 H* (3.5-5.1) mmol/L Chloride 92 L (98-107) mmol/L Carbon Dioxide 17 L (22-30) mmol/L BUN 85 H (9-20) mg/dL Creatinine 4.01 H (0.66-1.25) mg/dL Glucose 128 H (74-99) mg/dL POC Glucose (mg/dL) 127 H (75-99) mg/dL Calcium 5.1 L* (8.4-10.2) mg/dL Ionized Calcium Ann (4.5-5.3) mg/dL Total Bilirubin 3.8 H (0.2-1.3) mg/dL AST 992 H (17-59) U/L ALT 207 H (21-72) U/L Alkaline Phosphatase 367 H (38-126) U/L Total Protein 5.8 L (6.3-8.2) g/dL Albumin 2.5 L (3.5-5.0) g/dL Triglycerides (<150) mg/dL Cholesterol (<200) mg/dL HDL Cholesterol (40-60) mg/dL 02/27/19 02/28/19 02/28/19 Range/Units 18:55 04:18 04:35 WBC 47.6 H (3.8-10.6) k/uL RBC 2.58 L (4.30-5.90) m/uL Hgb 8.3 L (13.0-17.5) gm/dL Hct 24.9 L (39.0-53.0) % RDW 16.4 H (11.5-15.5) % Neutrophils # (Manual) 44.70 H (1.3-7.7) k/uL Monocytes # (Manual) (0-1.0) k/uL Metamyelocytes # (Man) 0.95 H (0) k/uL Myelocytes # (Manual) 0.48 H (0) k/uL Nucleated RBCs 4 H (0-0) /100 WBC ABG pH 7.21 L (7.35-7.45) ABG pCO2 59 H (35-45) mmHg ABG Total CO2 26 H (19-24) mmol/L Sodium (137-145) mmol/L Potassium (3.5-5.1) mmol/L Chloride (98-107) mmol/L Carbon Dioxide (22-30) mmol/L BUN (9-20) mg/dL Creatinine (0.66-1.25) mg/dL Glucose (74-99) mg/dL POC Glucose (mg/dL) (75-99) mg/dL Calcium (8.4-10.2) mg/dL Ionized Calcium Ann (4.5-5.3) mg/dL Total Bilirubin (0.2-1.3) mg/dL AST (17-59) U/L ALT (21-72) U/L Alkaline Phosphatase (38-126) U/L Total Protein (6.3-8.2) g/dL Albumin (3.5-5.0) g/dL Triglycerides 3585 H (<150) mg/dL Cholesterol 290 H (<200) mg/dL HDL Cholesterol 11 L (40-60) mg/dL 02/28/19 02/28/19 Range/Units 04:35 06:34 WBC (3.8-10.6) k/uL RBC (4.30-5.90) m/uL Hgb (13.0-17.5) gm/dL Hct (39.0-53.0) % RDW (11.5-15.5) % Neutrophils # (Manual) (1.3-7.7) k/uL Monocytes # (Manual) (0-1.0) k/uL Metamyelocytes # (Man) (0) k/uL Myelocytes # (Manual) (0) k/uL Nucleated RBCs (0-0) /100 WBC ABG pH (7.35-7.45) ABG pCO2 (35-45) mmHg ABG Total CO2 (19-24) mmol/L Sodium 128 L (137-145) mmol/L Potassium (3.5-5.1) mmol/L Chloride 94 L (98-107) mmol/L Carbon Dioxide 21 L (22-30) mmol/L BUN 57 H (9-20) mg/dL Creatinine 2.91 H (0.66-1.25) mg/dL Glucose 106 H (74-99) mg/dL POC Glucose (mg/dL) 124 H (75-99) mg/dL Calcium 6.1 L* (8.4-10.2) mg/dL Ionized Calcium Ann 3.5 L* (4.5-5.3) mg/dL Total Bilirubin 4.0 H (0.2-1.3) mg/dL AST 706 H (17-59) U/L ALT 200 H (21-72) U/L Alkaline Phosphatase 286 H (38-126) U/L Total Protein 5.7 L (6.3-8.2) g/dL Albumin 2.4 L (3.5-5.0) g/dL Triglycerides (<150) mg/dL Cholesterol (<200) mg/dL HDL Cholesterol (40-60) mg/dL Microbiology - Last 24 Hours (Table) 02/27/19 10:00 Urine Culture - Final Urine,Catheterized 02/27/19 11:15 Gram Stain - Preliminary Sputum Sputum Culture - Preliminary Freda albicans 02/23/19 10:15 Blood Culture - Preliminary Blood No Growth after 96 hours Assessment and Plan Plan: Assessment 1 acute hypoxic respiratory failure secondary to pneumonia. The patient had initially an influenza infection treated and subsequently presented with a strep pyogenes pneumonia and sepsis and multisystem organ failure and was still on a combination of Rocephin and clindamycin 2 acute hypoxic respiratory failure currently intubated on a mechanical ventilator 3 acute tension pneumothorax involving the left lung post chest tube insertion, and the patient continues to have excess amount of air leak within the left- sided chest tube and there is also leak of air from the openings/stoma previous chest tube insertion. The patient is losing approximately 150 cc of air with each tidal volume and the return tidal volumes are obviously less. He has become slightly acidotic. Chest x-ray from today shows a 50% pneumothorax which is worse compared to yesterday's evaluation. This is affecting his oxygenation and ventilation as the patient has a component of respiratory acidosis and hypoxemia currently on 80% FiO2. 4 acute septic shock secondary to above with multisystem organ failure, the patient is still on a low dose of pressors for hemodynamic support. The patient had a triple lumen catheter in place. The patient is on a high-dose pressors at 30 mics for now. 5 acute kidney injury with subsequent dialysis-dependent renal failure. His last session of hemodialysis was asked today were 2 L of fluid was removed. His potassium level is improved. 6 profound shock and hypotension with development of ischemic toes and fingers secondary to high pressor use. The patient has necrotic digits in the toes bilaterally and the right hand 7 coronary artery disease with previous coronary intervention and stenting 8 rhabdomyolysis, recovered 9 profound metabolic acidosis, improved 10 fluid overload secondary to aggressive fluid resuscitation 11 hyperlipidemia 12 hypertension, history of 13 history of peripheral neuropathy 14 ongoing fever with leukocytosis, consider upper infection 15 hyponatremia 16 rhabdomyolysis secondary to ischemic necrotic digits. 17 triglyceridemia decide a related to propofol infusion for extended period of time. 18 shock liver 19 increased gastric residuals and currently the patient is nothing by mouth Plan The patient will be kept on the same vent setting. Despite ongoing air leak with able to oxygenate him adequately and ventilating adequately for the time being. Keep the chest tube to suction. Monitor the chest x-ray on a daily basis. May need a second chest tube insertion if continues to have excess amount of air leak and pneumothorax kits worse. Continue pressors. Continue IV fluids. Keep the tube feeds on hold for now. Change the patient's sedation from propofol to Versed. We'll continue to follow. Condition is critical. He is a DO NOT RESUSCITATE CODE STATUS. Prognosis poor baseline above-mentioned comorbidities. Critically care evaluation, more than 30 minutes. This patient carries a very high mortality. I'm going to discuss this with the and make further recommendations for possible comfort care measures if she is agreeable. He is suffering from multisystem organ failure and the chance of recovery at this point in time is extremely low. Time with Patient: Greater than 30
[2019-02-28] MEDS: NOREPINEPHRINE 32 MG in SODIUM CHLORIDE 0.9% 218 ML IV SCH (13:30)
[2019-02-28 13:50] LABS: Glucose,Whole Blood 100 mg/dL (75-99)
--- NOTE | 2019-02-28 16:55 | PN ---
PROGRESS NOTE DATE OF SERVICE: 02/28/2019 This 63-year-old gentleman who was admitted with acute influenza, complicated pneumonia and sepsis also had features of multi-organ failure. Patient also got severe hypotension and septic shock. Patient is on Levophed, almost up to 36. Patient also has significant peripheral extremity lesions. Dr. Wilson and multiple consultants are following the patient closely. The culture showed Freda albicans as well and Strep pyogenes also. The patient is being closely monitored at this time. Past medical history reviewed. Review of systems could not be taken; the patient is mechanically ventilated and sedated. CURRENT MEDICATIONS: Reviewed. They include: 1. DuoNeb q.i.d. and p.r.n. 2. Artificial Tears. 3. Aspirin. 4. PhosLo. 5. Tums. 6. Rocephin. 7. Peridex. 8. Clindamycin IV. 9. Solu-Cortef. 10.Dilaudid. 11.Motrin. 12.NovoLog. 13.Levemir. 14.Habitrol. 15.Zofran. 16.Protonix. PHYSICAL EXAMINATION: Patient is mechanically ventilated and sedated. Pulse 107, blood pressure 101/54, respiration 20, temperature 98.6, pulse ox 96% on mechanical ventilation, 80% FiO2. Other vent settings noted. HEENT: Conjunctivae normal. Oral mucosa moist. NECK: No jugular venous distention. No carotid bruit. No lymph node enlargement. CARDIOVASCULAR SYSTEM: S1, S2 muffled. RESPIRATORY SYSTEM: Breath sounds diminished at the bases. Bilateral scattered rhonchi and crackles. ABDOMEN: Soft, obese. LEGS: Bilateral leg edema and ischemic lesions also present on extremities. NERVOUS SYSTEM: Patient is mechanically ventilated and sedated. LABS: WBC 47.6, hemoglobin 8.3. ABG pH 7.21. Sodium 128, potassium 4.9, and calcium 6.1. The creatine kinase is 112,225. ASSESSMENT: 1. Acute influenza A complicated with strep pneumonia as well as severe sepsis, hypotension, septic shock as well as acute hypoxic respiratory failure with acute respiratory distress syndrome, on mechanical ventilation. 2. Recurrent left pneumothorax, status post ThoraVent x2 and chest tube x2. 3. Multi-organ failure. 4. Acute rhabdomyolysis. 5. Increased white count secondary to sepsis and leukemoid reaction. 6. Anemia, normocytic. 7. Hyponatremia. 8. Hyperkalemia secondary to renal failure. 9. Elevated bilirubin, AST, ALT, hepatitis secondary to sepsis and liver failure. 10.History of coronary artery disease, stent placement. 11.History of congestive heart failure with chronic diastolic dysfunction, ejection fraction 50% to 60%. 12.Lactic acidosis. 13.Acute kidney injury. 14.Hypertension. 15.Hyperlipidemia. 16.History of nicotine dependence. 17.Obesity with body mass index of 36.7. 18.NO CODE, NO CPR, NO VENT. RECOMMENDATIONS AND DISCUSSION: In this 63-year-old gentleman who presented with multiple complex medical issues, I would recommend continuing the current management. Continue symptomatic treatment. The patient is on an extremely high dose of Levophed and pressure support. The patient had features of multi-organ failure secondary to influenza and its complications. We will closely monitor with Infectious Disease and Pulmonary. Overall prognosis is guarded because of multiple complex medical issues. Further recommendations to follow. Discussed with staff. MATT / DALIA: [id number] /
[2019-02-28 18:27] LABS: Glucose,Whole Blood 102 mg/dL (75-99)
--- NOTE | 2019-02-28 18:47 | PN ---
PROGRESS NOTE Patient is seen for followup for acute kidney injury. He remains oliguric. Levophed is up to about 30 mcg. FiO2 is at 80%. There is possibly a meeting scheduled with the film recordist this afternoon. 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 On examination this morning, blood pressure was 90/50, heart rate of about 90 per minute. Patient is afebrile. EXAMINATION OF THE HEART: S1 and S2. EXAMINATION OF LUNGS: Bilateral breath sounds are heard. Crepitus is noted on the left side. Chest tube is present on the left side. ABDOMEN: Soft, distended. Examination of lower extremities shows worsening discoloration of both feet. Edema is about 3+ bilaterally. SHEET HEATER HELPER exam is not performed. Labs show hemoglobin 8.3, sodium 128, potassium 4.9, BUN 57, serum creatinine 2.9, calcium 6.1. ASSESSMENT: 1. Acute kidney injury, acute tubular necrosis, currently oliguric and dialysis- dependent. We will hold off on dialysis today, given his increase in the requirement for pressors. Overall prognosis is guarded. 2. Hyperkalemia secondary to acute kidney injury and severe rhabdomyolysis, currently slightly improved. Hold off on hemodialysis today. 3. Acute hypoxic respiratory failure, maintained on vent with increasing requirement in FiO2. 4. Volume overload. 5. Influenza A. 6. Left pneumothorax, currently with chest tube. PLAN: Hold off on dialysis for now. Overall prognosis is guarded. Consider comfort care measures. Meeting is scheduled with film recordist later on today. MMNELSONL / IJN: [id number] / MTDSusan
[2019-02-28] MEDS: INSULIN DETEMIR (LEVEMIR) 100 UNIT/ML SYR SQ SCH (21:19)
[2019-03-01 00:08] LABS: Glucose,Whole Blood 114 mg/dL (75-99)
[2019-03-01] MEDS: INSULIN ASPART (NovoLOG) 100 UNIT/ML VIAL SQ SCH ×4 (00:29→18:57)
[2019-03-01] MEDS: MIDAZOLAM HCL 50 MG in SODIUM CHLORIDE 0.9% 40 ML IV SCH ×5 (02:07→20:37)
[2019-03-01] MEDS: IPRATROPIUM-ALBUTEROL 3 ML NEB INHALATION SCH ×6 (03:24→23:06)
[2019-03-01 04:13] LABS: ABG Base Excess -8.4 mmol/L; ABG HCO3 20 mmol/L (21-25); ABG Oxygen Saturation 93.5 % (94-97); ABG PCO2 56 mmHg (35-45); ABG PO2 84 mmHg (83-108); ABG TCO2 22 mmol/L (19-24)
[2019-03-01 04:16] LABS: ABG PH 7.17 (7.35-7.45)
[2019-03-01 04:57] LABS: Anisocytosis Slight; HCT 25.3 % (39.0-53.0); HGB 8.3 gm/dL (13.0-17.5); Hypochromasia Slight; MCH 32.4 pg (25.0-35.0); MCHC 32.9 g/dL (31.0-37.0); MCV 98.5 fL (80.0-100.0); Macrocytosis Slight; Mean Platelet Volume 9.6; Platelet Count 221 k/uL (150-450); Poikilocytosis Moderate; RBC 2.57 m/uL (4.30-5.90); RDW 16.8 % (11.5-15.5)
[2019-03-01 05:01] LABS: Albumin 2.3 g/dL (3.5-5.0); Potassium 5.9 mmol/L (3.5-5.1); Total Bilirubin 7.6 mg/dL (0.2-1.3); Total Protein 5.8 g/dL (6.3-8.2)
[2019-03-01 05:15] LABS: Ionized Calcium 2.9 mg/dL (4.5-5.3)
[2019-03-01 05:16] LABS: Calcium 5.1 mg/dL (8.4-10.2)
[2019-03-01 05:23] LABS: Band Neutrophils % 2 %; Lymphocytes # (M) 1.69 k/uL (1.0-4.8); Monocytes # (M) 2.12 k/uL (0-1.0); Myelocytes # (M) 0.85 k/uL (0); Myelocytes % 2 %; Neutrophils % (M) 87 %; Nucleated Red Blood Cells 3 /100 WBC (0-0); Total Cells Counted 200; WBC 42.3 k/uL (3.8-10.6)
[2019-03-01 05:24] LABS: Large Platelets Present
[2019-03-01] MEDS: ARTIFICIAL TEARS-HYPROMELLOSE DROPS 15 ML BTL BOTH EYES SCH ×2 (05:27→08:14)
[2019-03-01] MEDS: HYDROCORTISONE SUCCINATE 100 MG/2 ML VIAL IV SCH ×3 (05:27→20:49)
[2019-03-01] MEDS: CALCIUM ACETATE 667 MG CAP PO SCH ×3 (05:28→17:59)
[2019-03-01 05:46] LABS: Glucose,Whole Blood 121 mg/dL (75-99)
[2019-03-01] MEDS: SODIUM CHLORIDE 0.9% 1,000 ML IV SCH ×2 (05:51→14:17)
[2019-03-01] MEDS: NOREPINEPHRINE 32 MG in SODIUM CHLORIDE 0.9% 218 ML IV SCH (06:55)
[2019-03-01] MEDS ORDERED: CALCIUM GLUCONATE 2 GM in SODIUM CHLORIDE 0.9% 100 ML IVPB ONE (07:00)
[2019-03-01] MEDS ORDERED: CALCIUM GLUCONATE 1 GM in SODIUM CHLORIDE 0.9% 100 ML IVPB ONE (07:00)
[2019-03-01] MEDS: CLINDAMYCIN 600 MG in DEXTROSE 5% IN WATER 50 ML IVPB SCH ×4 (08:14→16:21)
[2019-03-01] MEDS: NICOTINE 21MG/24HR PATCH TRANSDERM SCH (08:14)
[2019-03-01] MEDS: PANTOPRAZOLE 40 MG/10 ML VIAL IVP SCH ×2 (08:15→20:49)
[2019-03-01] MEDS: ASPIRIN 81 MG PO SCH ×2 (08:15→09:00)
[2019-03-01] MEDS: CHLORHEXIDINE GLUCONATE 15 ML CUP MUCOUS MEM SCH ×2 (08:15→20:49)
[2019-03-01] MEDS: CALCIUM CARBONATE 500 MG CHEWABLE PO SCH ×3 (08:15→20:49)
--- NOTE | 2019-03-01 08:23 | XR ---
EXAMINATION TYPE: XR chest 1V portable DATE OF EXAM: 03/01/2019 COMPARISON: Prior chest x-ray 02/28/2018 HISTORY: Chest tube, pneumothorax TECHNIQUE: Single frontal view of the chest is obtained. FINDINGS: Left-sided chest tube is in place, left-sided pneumothorax persists, distal tip of the osorio st tube courses towards the level of the left hilum. There is patchy bibasilar density. Endotracheal tube and NG tube, right jugular central venous catheter are stable. There are overlying cardiac leads . Heart size is likely unchanged, patient is rotated. IMPRESSION: Left-sided pneumothorax may be increased in size in the interval, left chest tube as butch cribed. I've basilar atelectasis versus edema or pneumonia and associated effusion.
--- NOTE | 2019-03-01 09:36 | XR ---
Abdomen HISTORY: Abdomen distention Rule view of the abdomen on 2 images Chest x-ray same date Exam is limited by technique. Retrocardiac density is present, bibasilar increased density noted. There is an NG tube in place. No evident pneumoperitoneum or bowel obstruction. There are overlying leads. Loo catheter is present, there is a left femoral catheter. Patient is rotated. Abnormal vascular calcifications within the pel vis. Overall increased density present within the abdomen. IMPRESSION: Difficult to exclude underlying ascites. Basilar atelectasis versus edema or pneumonia an d associated effusions.
--- NOTE | 2019-03-01 10:10 | P.PN ---
Subjective Progress Note Date: 03/01/19 Principal diagnosis: Spontaneous left sided pneumothorax, acute respiratory failure secondary to influenza A and streptococcus pyogenes pneumonia, acute kidney injury secondary to acute tubular necrosis due to hypotension and sepsis, mild troponin elevation. History of CAD with prior stenting, hypertension, hyperlipidemia, chronic tobacco abuse. Thrombocytopenia. Rhabdomyolysis. POD #11 left chest thoravent placement x 2 and left thoracostomy tube placement POD #10 left femoral dialysis catheter placed by Dr. Barker POD #9 placement of second left thoracostomy tube for recurrent pneumothorax despite left thoracostomy tube in place The patient is currently laying in bed in the intensive care unit, still mechanically ventilated. Remains on levo, increased again from yesterday. Chest tube remains in place. Currently sinus tach. Sedated on Versed. Has received da son dialysis. Remains febrile, T-max in last 24 hours 102.5F. Remains on ceftriaxone, clindamycin per Dr. Shipley. Blood culture from February 27 still pending but no growth in 24 hours, sputum culture reporting Freda, pleural fluid culture from February 18 negative. Objective - Vital Signs Vital signs: Vital Signs Temp 98.8 F 03/01/19 08:00 Pulse 111 H 03/01/19 09:00 Resp 28 H 03/01/19 09:00 BP 109/56 03/01/19 09:00 Pulse Ox 94 L 03/01/19 09:00 Intake & Output 02/28/19 03/01/19 03/01/19 18:59 06:59 18:59 Intake Total 737.268 781.500 102 Output Total 1645 116 0 Balance -907.732 665.500 102 Weight 115.6 kg 115.6 kg Intake: IV 422 388 12 Calcium Gluconate 1 gm In 100 Sodium Chloride 0.9% 100 ml @ 100 mls/hr IVPB ONCE ONE Rx#:[id number] Clindamycin 600 mg In 50 50 Dextrose 5% in Water 50 ml @ 50 mls/hr IVPB Q8HR [facility] Rx#:[id number] Sodium Chloride 0.9% 1, 200 260 000 ml @ 20 mls/hr IV . Q24H [facility] Rx#:[id number] pressure bags 72 78 12 Intake, IV Titration 245.268 393.500 90 Amount Clindamycin 600 mg In 50 Dextrose 5% in Water 50 ml @ 50 mls/hr IVPB Q8HR [facility] Rx#:[id number] Midazolam HCl 50 mg In 127.05 93.500 Sodium Chloride 0.9% 40 ml @ 5 MG/HR 5 mls/hr IV .Q10H [facility] Rx#:[id number] Norepinephrine 32 mg In 118.218 250.000 Sodium Chloride 0.9% 218 ml @ 0.05 MCG/KG/MIN 2. 233 mls/hr IV .Q24H [facility] Rx#:[id number] Sodium Chloride 0.9% 1, 40 000 ml @ 20 mls/hr IV . Q24H [facility] Rx#:[id number] cefTRIAXone 2 gm In 50 Sodium Chloride 0.9% 50 ml @ 100 mls/hr IVPB Q24H [facility] Rx#:[id number] Tube Feeding 40 Other 30 Output: Chest Tube Drainage 145 110 Chest Tube Left 145 110 Gastric Drainage 1500 Urine 0 6 0 Other: Voiding Method Indwelling Catheter Indwelling Catheter ABP, PAP, CO, CI - Last Documented Arterial Blood Pressure 93/56 - Constitutional General appearance: Present: no acute distress, obese - Respiratory Details: Lung sounds diminished bilaterally with coarse breath sounds in the bases. Respirations even, non-labored on mechanical ventilation. Current ventilator settings VC+ mode, FiO2 70%, TV 550, RR 25 PEEP 5. 8.0 ETT present, 23 at the lip. Left chest tube to continuous wall suction, 70 mL serous drainage overnight, 340 mL output in 24 hours, continuous air leak remains present. - Cardiovascular Details: S1/S2 present. Regular rate and rhythm, sinus rhythm on telemetry. Doppler peripheral pulses bilaterally. Lower extremity edema present. SCDs present. Left radial arterial line, right internal jugular triple lumen central line present. - Gastrointestinal Gastrointestinal Comment(s): Abdomen soft, non-tender, slightly distended. Active bowel sounds present x 4 quadrants. OGT present, tube feeding currently on hold due to high residual. - Genitourinary Genitourinary Comment(s): Loo present, virtually no urine output overnight. Left femoral temporary di alysis catheter present. - Integumentary Integumentary Comment(s): Skin is cool. Fluid blisters present to upper extremities and thighs. Bilateral lower extremities mottled with blue/black toes, fingers blue/black as well right more so than the left. - Psychiatric Psychiatric Comment(s): Currently sedated on 10 mg/hr of Versed - Allied health notes Allied health notes reviewed: nursing - Labs CBC & Chem 7: 03/01/19 04:30 03/01/19 04:30 Labs: Abnormal Lab Results - Last 24 Hours (Table) 02/28/19 02/28/19 02/28/19 Range/Units 04:35 13:38 18:05 WBC (3.8-10.6) k/uL RBC (4.30-5.90) m/uL Hgb (13.0-17.5) gm/dL Hct (39.0-53.0) % RDW (11.5-15.5) % Neutrophils # (Manual) (1.3-7.7) k/uL Monocytes # (Manual) (0-1.0) k/uL Myelocytes # (Manual) (0) k/uL Nucleated RBCs (0-0) /100 WBC ABG pH (7.35-7.45) ABG pCO2 (35-45) mmHg ABG HCO3 (21-25) mmol/L ABG O2 Saturation (94-97) % Sodium (137-145) mmol/L Potassium (3.5-5.1) mmol/L Chloride (98-107) mmol/L Carbon Dioxide (22-30) mmol/L BUN (9-20) mg/dL Creatinine (0.66-1.25) mg/dL Glucose (74-99) mg/dL POC Glucose (mg/dL) 100 H 102 H (75-99) mg/dL Calcium (8.4-10.2) mg/dL Ionized Calcium Ann (4.5-5.3) mg/dL Total Bilirubin (0.2-1.3) mg/dL AST (17-59) U/L ALT (21-72) U/L Alkaline Phosphatase (38-126) U/L Creatine Kinase 069083 H* (55-170) U/L Total Protein (6.3-8.2) g/dL Albumin (3.5-5.0) g/dL 02/28/19 03/01/19 03/01/19 Range/Units 23:56 04:09 04:30 WBC 42.3 H (3.8-10.6) k/uL RBC 2.57 L (4.30-5.90) m/uL Hgb 8.3 L (13.0-17.5) gm/dL Hct 25.3 L (39.0-53.0) % RDW 16.8 H (11.5-15.5) % Neutrophils # (Manual) 37.60 H (1.3-7.7) k/uL Monocytes # (Manual) 2.12 H (0-1.0) k/uL Myelocytes # (Manual) 0.85 H (0) k/uL Nucleated RBCs 3 H (0-0) /100 WBC ABG pH 7.17 L* (7.35-7.45) ABG pCO2 56 H (35-45) mmHg ABG HCO3 20 L (21-25) mmol/L ABG O2 Saturation 93.5 L (94-97) % Sodium (137-145) mmol/L Potassium (3.5-5.1) mmol/L Chloride (98-107) mmol/L Carbon Dioxide (22-30) mmol/L BUN (9-20) mg/dL Creatinine (0.66-1.25) mg/dL Glucose (74-99) mg/dL POC Glucose (mg/dL) 114 H (75-99) mg/dL Calcium (8.4-10.2) mg/dL Ionized Calcium Ann (4.5-5.3) mg/dL Total Bilirubin (0.2-1.3) mg/dL AST (17-59) U/L ALT (21-72) U/L Alkaline Phosphatase (38-126) U/L Creatine Kinase (55-170) U/L Total Protein (6.3-8.2) g/dL Albumin (3.5-5.0) g/dL 03/01/19 03/01/19 Range/Units 04:30 05:35 WBC (3.8-10.6) k/uL RBC (4.30-5.90) m/uL Hgb (13.0-17.5) gm/dL Hct (39.0-53.0) % RDW (11.5-15.5) % Neutrophils # (Manual) (1.3-7.7) k/uL Monocytes # (Manual) (0-1.0) k/uL Myelocytes # (Manual) (0) k/uL Nucleated RBCs (0-0) /100 WBC ABG pH (7.35-7.45) ABG pCO2 (35-45) mmHg ABG HCO3 (21-25) mmol/L ABG O2 Saturation (94-97) % Sodium 128 L (137-145) mmol/L Potassium 5.9 H (3.5-5.1) mmol/L Chloride 94 L (98-107) mmol/L Carbon Dioxide 17 L (22-30) mmol/L BUN 82 H (9-20) mg/dL Creatinine 4.05 H (0.66-1.25) mg/dL Glucose 112 H (74-99) mg/dL POC Glucose (mg/dL) 121 H (75-99) mg/dL Calcium 5.1 L* (8.4-10.2) mg/dL Ionized Calcium Ann 2.9 L* (4.5-5.3) mg/dL Total Bilirubin 7.6 H (0.2-1.3) mg/dL AST 537 H (17-59) U/L ALT 180 H (21-72) U/L Alkaline Phosphatase 394 H (38-126) U/L Creatine Kinase (55-170) U/L Total Protein 5.8 L (6.3-8.2) g/dL Albumin 2.3 L (3.5-5.0) g/dL Microbiology - Last 24 Hours (Table) 02/27/19 17:38 Blood Culture - Preliminary Blood No Growth after 24 hours 02/27/19 12:45 Blood Culture - Preliminary Blood No Growth after 24 hours 02/23/19 10:15 Blood Culture - Preliminary Blood No Growth after 120 hours 02/27/19 10:00 Urine Culture - Final Urine,Catheterized 02/27/19 11:15 Gram Stain - Preliminary Sputum Sputum Culture - Preliminary Freda albicans - Imaging and Cardiology Chest x-ray: report reviewed, image reviewed Assessment and Plan Assessment: 1. Spontaneous left pneumothorax, status post thoravent and thoracostomy tube placement 2. Acute hypoxic respiratory failure with influenza A and streptococcus pyrogenes pneumonia, ARDS with prolonged mechanical ventilation 3. Acute kidney injury secondary to acute tubular necrosis, status post temporary dialysis placement with daily dialysis 4. Septic shock with lactic acidosis 5. Multisystem organ failure 6. Troponin elevation 7. History of CAD with prior stenting 8. History of hypertension, currently hypotensive on levo 9. Hyperlipidemia 10. Chronic tobacco dependance 11. Thrombocytopenia, HIT panel negative 12. Rhabdomyolysis Plan: 1. Continue left pleural chest tube to continuous wall suction, will monitor for resolution of air leak. 2. Will monitor daily labs, x-rays 3. Wean ventilator when able. Ventilator management per pulmonology 4. Bronchodilators, steroids per pulmonology 5. Antibiotics per infectious disease. Follow cultures. 6. GI/DVT prophylaxis with protonix, SCDs. 7. Avoid nephrotoxic agents. Continue hemodiaysis per nephrology. Wean levo as able. 8. Medical management of other comorbid conditions per primary care service. 9. Will continue to follow. Time with Patient: Greater than 30
[2019-03-01 10:32] LABS: Lipase 485 U/L (23-300)
[2019-03-01 10:55] LABS: Amylase 368 U/L (30-110)
[2019-03-01 10:56] LABS: Triglycerides 1378 mg/dL (<150)
[2019-03-01 11:27] LABS: ABG Base Excess -7.6 mmol/L; ABG HCO3 21 mmol/L (21-25); ABG Oxygen Saturation 96.1 % (94-97); ABG PCO2 54 mmHg (35-45); ABG PO2 105 mmHg (83-108); ABG TCO2 22 mmol/L (19-24)
[2019-03-01 11:29] LABS: ABG PH 7.19 (7.35-7.45)
[2019-03-01 12:55] LABS: Glucose,Whole Blood 75 mg/dL (75-99)
--- NOTE | 2019-03-01 13:52 | P.PN ---
Subjective Progress Note Date: 03/01/19 53-year-old male patient was being seen in the intensive care unit for respiratory failure, pneumonia, sepsis, multisystem organ failure. The patient was admitted on 02/16/2019. This morning the patient is sedated with Diprivan and is calm and comfortable and Diprivan is running at 60 g per KG per minute. He remains intubated on a mechanical ventilator. I noted that the patient was quite uncomfortable while being on a mechanical ventilator. He was double stacking and was breathing fast and he was having persistent amount of air leak in the Pleur-evac. Based on this, I made adjustments, and switch this patient to a VC mode with a tidal volume of 500, respiratory rate of 25, I time of 1.1 and this is a VC plus molds. I kept FiO2 at 50%. Awaiting subsequent blood gases. Nevertheless, with these changes, the patient is much more comfortable and synchronous with the mechanical ventilator. We don't have to given additional sedation such as Dilaudid or fentanyl. Meanwhile, the patient still has a left-sided chest tube. There is obvious air leak and the left-sided chest tube. Amount of fluid and urinating over the past 24 hours is minimal at this point in time. Chest x-ray shows bilateral pulmonary infiltrates and left-sided chest tube in place and there is no evidence of any sizable pneumothorax. Hemodynamically, the patient is on IV fluids currently running at 28 an hour. The patient is also on pressors and norepinephrine infusion is running at 10 g per minute. The patient is on dialysis. His last round of the analysis was done on 02/25/2019 where a total of 1.5 L of fluid was removed. He is about to have another session of dialysis today. He is dialysis catheter is inserted in his left femoral vein. He has an EF around 6065% and this was done in time of admission. In terms of his infection, the patient is still spiking temperature with a T-max of 101.3. His current temperatures 100.8. I noted ongoing rise in his white count and obviously there is a concern for reinfection. History volume a Right IJ seems to be quite clean and intact. He also has a femoral dialysis catheter. His skin is swollen and there is some areas of blistering and vesical formation due to fluid overload on multiple locations been no evidence of any cellulitis. He has cyanotic digits in his feet bilaterally and his right hand fingers and these are mainly related to the utilization of high dose of pressors at time of his septic shock. He is current antibiotic coverage including a combination of Rocephin and clindamycin per IDs recommendation. He is taking Nepro at the rate of 20 mL an hour. His most recent sputum Gram stain and culture showed Freda and strep pyogenous. On today's evaluation of 02/28/2019, the patient is doing poorly. The patient was found to have significant toxicity from Diprivan. The serum triglyceride was higher than 3500 and at that point the Diprivan was discontinued and the patient was started on Versed drip which is currently running at 12 mg an hour. The patient remains on a medical ventilator. He has think is on a mechanical ventilator however his having excess amount of leak from the chest tube and from opening from previous chest tube insertion. He is losing approximately 150 mL of volume as noted in the mechanical ventilator. He remains on assist control mode at the rate of 25, I time of 1.1, tidal volume of 500 and FiO2 has been increased up to 80% as the patient was having some issues with oxygenation overn ight. The morning blood gases showed a pH of 7.1 with a pCO2 of 59 and pO2 of 9600% FiO2. Chest x-ray from today shows a little bit of a left-sided pneumothorax which is increased in size compared to the yesterday's film and is currently at 15%. ET tube is in a good location. There is better pleural effusion consistent with CHF. Hemodynamically, the patient remains hypotensive and the patient is still requiring pressors initially at 20 mics and currently is up to 30 mics for blood pressure maintenance. His cardiac rhythm is sinus. He is showing ongoing signs of septicemia. His febrile. His white cell count is at 47. We have sent new blood cultures from the dialysis catheter and the triple-lumen catheter and the patient also has had sputum and blood and urine cultures. The results are still pending for now and there is no new cultures available at this point in time. Infectious disease on the case and the patient has been kept on a combination of clindamycin and Rocephin. The patient is not producing any urine output. He underwent hemodialysis yesterday where 2 L of fluid was also removed during the dialysis process. His creatinine is up to 2.9. Potassium level improved is down to 4.9. LFTs remain abnormal consistent with shock liver. Calcium level is low with an ionized calcium level of 3.7 the calcium was replaced. This morning we noted that the patient is having some abdominal distention. Tube feeds was stopped and the residual is quite high mortality thousand. This was placed to suctioning and currently the patient is nothing by mouth for now. The follow-up CPK level is pending from today. Meanwhile, the patient continues to have extensive digital necrosis and 3 of the extremities mainly the feet and the left upper extremity. A 9 is still func tional for now. on 03/01/2019 I'm seeing this patient for a follow-up. I already had a lengthy discussion with the yesterday evening and updated on the condition. The same was done this morning. The patient remains sedated on Versed and the Versed infusion is running at 10 mg an hour. This which was done and the patient had a very high triglyceride level that was attributed to propofol i nfusion. Once infusion was discontinued the follow-up triglyceride level came down to 1300. The amylase and lipase were noted to be slightly elevated and the patient has already developed difficulties in tolerating his she'll feeds and based on that the tube feeds are still on hold. Another attempt to feed this patient failed as the patient was having very high residuals. In any rate, the patient's tube feeds on hold. The liver function tests are gradually improving as the patient is recovering from his shock liver. Note that the bilirubin level is still elevated at 7.6 with an AST of 537 and ALT of 180 with an alkaline phosphatase of 394. In terms of his pulmonary status, the patient is a mechanical ventilator. The patient is on a assist-control mode with a tidal volume of 550, FiO2 at 70%, rate of 25 this morning and I time of 1.1 with a PEEP of 5. Chest x-ray showed a 15-20% pneumothorax on the left and the chest tube is in a good location and there is continuous air leak noted in the chest tube. 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 The patient had a follow-up blood gases this morning that showed respiratory acidosis. His pH is 7.17 with a pCO2 of 56 and pO2 of 84. He is losing volume because of his persistent air leak and this is estimated to be in the order of 100 mL based on the return tidal volumes. Peak air pressure is not elevated. The patient is not having any significant orotracheal secretions. Repeat cultures have been negative with exception of Freda albicans in the sputum. Dr. Shipley from infectious disease on the case. The patient has been kept on a combination of IV Rocephin 2 g every 24 hours and clindamycin. Note that the only positive culture was a strep and adjusted was cultured originally from this patient. White cell count remains elevated at 47,000. The patient has a right IJ triple-lumen catheter. The patient alsohas a hemodialysis catheter in his left femoral vein. He underwent another session of hemodialysis today. During the dialysis 2 L of IV fluid was removed. Nevertheless he did de velop some hypotension and the pressors have been modified to meet his blood pressure requirements. I have made recommendations to start this patient on vasopressin to optimize hemodynamics and gradually reduced a present dose of possible. He is still tapping on and off. He had a T-max of 102.5. His CPK level is on the decline. He continues to have necrotic digits in the lower extremities in the feet and the left upper extremity. He is doing poorly. The family is updated on his condition. Unfortunately, he has not had any major improvement over the past several days and this has been discussed again with the family. Daughter is also in the bedside. Objective - Vital Signs Vital signs: Vital Signs Temp 98.8 F 03/01/19 08:00 Pulse 116 H 03/01/19 12:01 Resp 29 H 03/01/19 11:00 BP 115/65 03/01/19 11:00 Pulse Ox 97 03/01/19 11:00 Intake & Output 02/28/19 03/01/19 03/01/19 18:59 06:59 18:59 Intake Total 737.268 781.500 409.362 Output Total 1645 116 0 Balance -907.732 665.500 409.362 Weight 115.6 kg 115.6 kg Intake: IV 422 388 104 Calcium Gluconate 1 gm In 100 Sodium Chloride 0.9% 100 ml @ 100 mls/hr IVPB ONCE ONE Rx#:[id number] Clindamycin 600 mg In 50 50 Dextrose 5% in Water 50 ml @ 50 mls/hr IVPB Q8HR [facility] Rx#:[id number] Sodium Chloride 0.9% 1, 200 260 80 000 ml @ 20 mls/hr IV . Q24H [facility] Rx#:[id number] pressure bags 72 78 24 Intake, IV Titration 245.268 393.500 305.362 Amount Calcium Gluconate 2 gm In 100 Sodium Chloride 0.9% 100 ml @ 60 mls/hr IVPB ONCE ONE Rx#:[id number] Clindamycin 600 mg In 50 Dextrose 5% in Water 50 ml @ 50 mls/hr IVPB Q8HR [facility] Rx#:[id number] Midazolam HCl 50 mg In 127.05 93.500 40.833 Sodium Chloride 0.9% 40 ml @ 5 MG/HR 5 mls/hr IV .Q10H [facility] Rx#:[id number] Norepinephrine 32 mg In 118.218 250.000 114.529 Sodium Chloride 0.9% 218 ml @ 0.05 MCG/KG/MIN 2. 233 mls/hr IV .Q24H [facility] Rx#:[id number] cefTRIAXone 2 gm In 50 Sodium Chloride 0.9% 50 ml @ 100 mls/hr IVPB Q24H [facility] Rx#:[id number] Tube Feeding 40 Other 30 Output: Chest Tube Drainage 145 110 Chest Tube Left 145 110 Gastric Drainage 1500 Urine 0 6 0 Other: Voiding Method Indwelling Catheter Indwelling Catheter Indwelling Catheter ABP, PAP, CO, CI - Last Documented Arterial Blood Pressure 104/70 - Exam Gen. appearance the patient has single-vessel a mechanical ventilator. Calm and comfortable and sedated. Orogastric and orotracheal tube are both in place. Head exam was generally normal. There was no scleral icterus or corneal arcus. Mucous membranes were moist. Neck was supple and without jugular venous distension, thyromegaly, or carotid bruits. Carotids were easily palpable bilaterally. There was no adenopathy. The patient has a right IJ triple-lumen catheter in place. Lungs sounds are diminished bilaterally and there is scattered rhonchi heard throughout the lung garsia bilaterally. There is a left-sided chest tube in place with ongoing air leak. Cardiac exam revealed the PMI to be normally situated and sized. The rhythm was regular and no extrasystoles were noted during several minutes of auscultation. The first and second heart sounds were normal and physiologic splitting of the second heart sound was noted. There were no murmurs, rubs, clicks, or gallops.the patient has a chest tube in his left hemithorax. The chest tube is leaking air constantly. The stoma from the previous chest tube insertion is also leaking air. No subcu emphysema this point in time. Abdominal exam revealed normal bowel sounds. The abdomen was soft, non-tender, and without masses, organomegaly, or appreciable enlargement of the abdominal ao rta. Extremities revealed cyanotic digits mainly involving the toes bilaterally and the fingers of the right hand. The left lower extremity and the foot is quite cold. There is positive Doppler signal. Right lower extremity is warm and pulses can be palpated. The right radial pulse is weak. Left radial pulse is present and the patient has a Artline catheter in place. There is also areas of skin excoriation over the right upper extremity at the site of a radial art line insertion. No clear-cut areas of cellulitis. Vesical formation due to fluid overload. Skin as mentioned above.the patient is having extensive third spacing and edema in lower extremities. There is some areas of vesicle formation blisters. No open wounds for now. The skin is weeping due to his fluid overload. Neurologically the patient sedated and calm and comfortable. No seizure activity. Pupils equal and symmetric to light. Hthe patient is sedated with Versed and - Labs CBC & Chem 7: 03/01/19 04:30 03/01/19 04:30 Labs: Abnormal Lab Results - Last 24 Hours (Table) 02/28/19 02/28/19 02/28/19 Range/Units 13:38 18:05 23:56 WBC (3.8-10.6) k/uL RBC (4.30-5.90) m/uL Hgb (13.0-17.5) gm/dL Hct (39.0-53.0) % RDW (11.5-15.5) % Neutrophils # (Manual) (1.3-7.7) k/uL Monocytes # (Manual) (0-1.0) k/uL Myelocytes # (Manual) (0) k/uL Nucleated RBCs (0-0) /100 WBC ABG pH (7.35-7.45) ABG pCO2 (35-45) mmHg ABG HCO3 (21-25) mmol/L ABG O2 Saturation (94-97) % Sodium (137-145) mmol/L Potassium (3.5-5.1) mmol/L Chloride (98-107) mmol/L Carbon Dioxide (22-30) mmol/L BUN (9-20) mg/dL Creatinine (0.66-1.25) mg/dL Glucose (74-99) mg/dL POC Glucose (mg/dL) 100 H 102 H 114 H (75-99) mg/dL Calcium (8.4-10.2) mg/dL Ionized Calcium Ann (4.5-5.3) mg/dL Total Bilirubin (0.2-1.3) mg/dL AST (17-59) U/L ALT (21-72) U/L Alkaline Phosphatase (38-126) U/L Total Protein (6.3-8.2) g/dL Albumin (3.5-5.0) g/dL Triglycerides (<150) mg/dL Amylase (30-110) U/L Lipase (23-300) U/L 03/01/19 03/01/19 03/01/19 Range/Units 04:09 04:30 04:30 WBC 42.3 H (3.8-10.6) k/uL RBC 2.57 L (4.30-5.90) m/uL Hgb 8.3 L (13.0-17.5) gm/dL Hct 25.3 L (39.0-53.0) % RDW 16.8 H (11.5-15.5) % Neutrophils # (Manual) 37.60 H (1.3-7.7) k/uL Monocytes # (Manual) 2.12 H (0-1.0) k/uL Myelocytes # (Manual) 0.85 H (0) k/uL Nucleated RBCs 3 H (0-0) /100 WBC ABG pH 7.17 L* (7.35-7.45) ABG pCO2 56 H (35-45) mmHg ABG HCO3 20 L (21-25) mmol/L ABG O2 Saturation 93.5 L (94-97) % Sodium 128 L (137-145) mmol/L Potassium 5.9 H (3.5-5.1) mmol/L Chloride 94 L (98-107) mmol/L Carbon Dioxide 17 L (22-30) mmol/L BUN 82 H (9-20) mg/dL Creatinine 4.05 H (0.66-1.25) mg/dL Glucose 112 H (74-99) mg/dL POC Glucose (mg/dL) (75-99) mg/dL Calcium 5.1 L* (8.4-10.2) mg/dL Ionized Calcium Ann 2.9 L* (4.5-5.3) mg/dL Total Bilirubin 7.6 H (0.2-1.3) mg/dL AST 537 H (17-59) U/L ALT 180 H (21-72) U/L Alkaline Phosphatase 394 H (38-126) U/L Total Protein 5.8 L (6.3-8.2) g/dL Albumin 2.3 L (3.5-5.0) g/dL Triglycerides (<150) mg/dL Amylase (30-110) U/L Lipase (23-300) U/L 03/01/19 03/01/19 03/01/19 Range/Units 04:30 05:35 11:25 WBC (3.8-10.6) k/uL RBC (4.30-5.90) m/uL Hgb (13.0-17.5) gm/dL Hct (39.0-53.0) % RDW (11.5-15.5) % Neutrophils # (Manual) (1.3-7.7) k/uL Monocytes # (Manual) (0-1.0) k/uL Myelocytes # (Manual) (0) k/uL Nucleated RBCs (0-0) /100 WBC ABG pH 7.19 L* (7.35-7.45) ABG pCO2 54 H (35-45) mmHg ABG HCO3 (21-25) mmol/L ABG O2 Saturation (94-97) % Sodium (137-145) mmol/L Potassium (3.5-5.1) mmol/L Chloride (98-107) mmol/L Carbon Dioxide (22-30) mmol/L BUN (9-20) mg/dL Creatinine (0.66-1.25) mg/dL Glucose (74-99) mg/dL POC Glucose (mg/dL) 121 H (75-99) mg/dL Calcium (8.4-10.2) mg/dL Ionized Calcium Ann (4.5-5.3) mg/dL Total Bilirubin (0.2-1.3) mg/dL AST (17-59) U/L ALT (21-72) U/L Alkaline Phosphatase (38-126) U/L Total Protein (6.3-8.2) g/dL Albumin (3.5-5.0) g/dL Triglycerides 1378 H (<150) mg/dL Amylase 368 H* (30-110) U/L Lipase 485 H (23-300) U/L Microbiology - Last 24 Hours (Table) 02/27/19 11:15 Gram Stain - Final Sputum Sputum Culture - Final Freda albicans 02/27/19 17:38 Blood Culture - Preliminary Blood No Growth after 24 hours 02/27/19 12:45 Blood Culture - Preliminary Blood No Growth after 24 hours 02/23/19 10:15 Blood Culture - Preliminary Blood No Growth after 120 hours 02/27/19 10:00 Urine Culture - Final Urine,Catheterized Assessment and Plan Plan: Assessment 1 acute hypoxic respiratory failure secondary to pneumonia. The patient had initially an influenza infection treated and subsequently presented with a strep pyogenes pneumonia and sepsis and multisystem organ failure and was still on a combination of Rocephin and clindamycin. The patient remains intubated on a mechanical ventilator. Most recent blood gas shows a stress doses and the patient continues to lose volume as the patient has significant amount of air leak within the left-sided chest tube. Patient continues to have a 15-20% pneumothorax on the left. 2 acute hypoxic respiratory failure currently intubated on a mechanical ventilator 3 acute tension pneumothorax involving the left lung post chest tube insertion, and the patient continues to have excess amount of air leak within the left- sided chest tube and there is also leak of air from the openings/stoma previous chest tube insertion. The patient is losing approximately 150 cc of air with each tidal volume and the return tidal volumes are obviously less. He has become slightly acidotic. the chest x-ray showing 50-20% pneumothorax on the left. I have made adjustments to increase his minute ventilation in attempt to improve some of his respiratory acidosis. 4 acute septic shock secondary to above with multisystem organ failure, the patient is still on a low dose of pressors for hemodynamic support. The patient had a triple lumen catheter in place. The patient is on a high-dose pressors at 30 mics for now.Vasopressin will be started again. Further investigation with repeat cultures have yielded no positive cultures with exception of Freda albicans in the sputum. This is most likely colonization. 5 acute kidney injury with subsequent dialysis-dependent renal failure. His la st session of hemodialysis was adone today and a total of 2 L of fluid was removed. His potassium level is improved. 6 profound shock and hypotension with development of ischemic toes and fingers s econdary to high pressor use. The patient has necrotic digits in the toes bilaterally and the right hand 7 coronary artery disease with previous coronary intervention and stenting 8 rhabdomyolysis, recovering as the patient's CPK level remains elevated. This is most likely secondary to profound hypotension and muscle necrosis. 9 profound metabolic acidosis, improved, the patient's acidosis is essentially respiratory at this point in time. 10 fluid overload secondary to aggressive fluid resuscitation 11 hyperlipidemiawith significant hypertriglyceridemia 12 hypertension, history of 13 history of peripheral neuropathy 14 ongoing fever with leukocytosis, consider upper infection 15 hyponatremia 16 rhabdomyolysis secondary to ischemic necrotic digits. 17 triglyceridemia decide a related to propofol infusion for extended period of time. 18 shock liver, improving 19 increased gastric residuals and currently the patient is nothing by mouth Plan keep the patient is sedated. Nothing by mouth for now. Consider TPN and will get dietary consult on TPN regimen considering that the patient has significant hypertriglyceridemia. Monitor CPK. Monitor urine output. Monitor blood pressure. Send a lactic acid level. Add vasopressin. Try to wean off pressors if possible. Adjust the ventilator as an increased respiratory rate up to 32 to help improve the minute ventilation and respiratory acidosis. The FiO2 down to 60%. Keep the Chest Tube Attached to Continuous Suction. Monitor the Air Leak. Monitor the Blood Gas. Repeat Chest X-Ray. Consider Computed Tomography Scan of the Chest Abdomen and Pelvis If the Patient Is Able to Be Transported Downstairs for These Studies. Clinically, Is Doing Very Poorly and the Patient's Prognosis Extremely Poor with Multisystem Organ Failure. We'll Continue to Follow. Family Has Been Updated on His Condition. Evaluation Was Done and More Than 30 Minutes Time with Patient: Greater than 30
--- NOTE | 2019-03-01 14:04 | XR ---
EXAMINATION TYPE: XR chest 1V portable DATE OF EXAM: 03/01/2019 COMPARISON: Prior chest x-ray 03/01/2018 HISTORY: Pneumothorax and shortness of breath TECHNIQUE: Single frontal view of the chest is obtained. FINDINGS: The pneumothorax has progressed and is larger than on prior exam. Left-sided chest tube is coursing towards the hilum and may be malpositioned. No other significant interval change. There is subcutaneous emphysema. IMPRESSION: Pneumothorax has increased in the interval. Evaluate chest tube placement.
[2019-03-01] MEDS: SODIUM CHLORIDE 0.9% 50 ML with VASOPRESSIN 20 UNIT IVPB SCH ×4 (15:04→21:55)
[2019-03-01] MEDS ORDERED: ANIDULAFUNGIN 100 MG in SODIUM CHLORIDE 0.9% 100 ML IVPB SCH (15:45)
--- NOTE | 2019-03-01 15:58 | XR ---
EXAMINATION TYPE: XR chest 1V portable DATE OF EXAM: 03/01/2019 COMPARISON: Prior chest x-ray on same dated earlier time HISTORY: Chest tube placement TECHNIQUE: Single frontal view of the chest is obtained. FINDINGS: There is been interval placement of a second left chest tube, perhaps repositioning of the first chest tube. There is some improvement in the left-sided pneumothorax. No other significant int erval change. IMPRESSION: Improvement in pneumothorax status post left chest tube placement
[2019-03-01] MEDS ORDERED: ACETAMINOPHEN IV (For NPO) 1,000 MG in EMPTY BAG 1 BAG IVPB PRN (17:21)
[2019-03-01] MEDS ORDERED: ANIDULAFUNGIN 100 MG in SODIUM CHLORIDE 0.9% 100 ML IVPB ONE (18:00)
--- NOTE | 2019-03-01 18:06 | PN ---
PROGRESS NOTE DATE OF SERVICE: 03/01/2019 This 63-year-old gentleman admitted with acute influenza A complicated pneumonia, sepsis, also had multiorgan failure. The patient has severe septic and severe sepsis and hypertension. The patient is on Levophed. Significant amount of Levophed at 50 at this time. The patient mechanically ventilated and intubated with the patient also developed pneumothorax. The left-sided chest tube was inserted with some improvement in the chest x-ray and cavitating lesion also suspected on the chest x-ray. Dr. Wilson and Dr. Shipley and multiple consultants are following the patient closely. The patient also had significant renal failure, hemodialysis initiated by Dr. Montiel. The patient also on multiple antibiotics drip. Streptococcus pyogenes grown from the blood cultures. The blood cultures also grew yeast at this time. The patient is started on Eraxis as well. The patient being closely monitor. PAST MEDICAL HISTORY: Reviewed. REVIEW OF SYSTEMS: Could not be obtained. The patient mechanically sedated. CURRENT MEDICATIONS: Reviewed and include: 1. DuoNeb q.i.d. and p.r.n. 2. Eraxis. 3. Aspirin 81 mg p.o. daily. 4. PhosLo 667 t.i.d. 5. Tums. 6. Rocephin 2 grams IV 24 hours. 7. Peridex. 8. Clindamycin. 9. Vitamin D2. 10.Solu-Cortef 100 mg IV q.8h. 11.Dilaudid. 12.Motrin. 13.NovoLog. 14.Levemir. 16.Magnesium. 17.Habitrol. 18.Norepinephrine. 19.Protonix. PHYSICAL EXAM: Patient is mechanically ventilated and sedated. Pulse is 124, blood pressure 140/56, respiratory rate 24, temperature 101.4, pulse ox 91 percent on 60% FIO2. HEENT: Conjunctivae normal. Oral mucosa moist. Neck is no jugular venous distention. No carotid bruit. No lymph node enlargement. CARDIOVASCULAR: S1, S2 muffled. RESPIRATORY SYSTEM: Breath sounds diminished at the bases. A few scattered rhonchi and crackles. ABDOMEN: Soft, nontender. No mass. Legs: Bilateral leg edema. Bilateral leg ischemic changes also present. Ischemic skin changes in the right arm and as well as some bolus and icteric lesions also present. Skin as mentioned earlier. Nervous system: Patient is mechanically sedated. LAB STUDIES: WBC 42.3, hemoglobin is 8.3, and pH of 7.19. Sodium 128, potassium 5.9, creatinine is 4.05 and 5.1, amylase 60, lipase 45. ASSESSMENT: 1. Acute influenza A complicated with pneumonia with severe sepsis, hypotension, septic shock as well as acute hypoxic respiratory failure with acute respiratory distress syndrome on mechanical ventilation. 2. Possible cavitary pneumonia on the left side with recurrent pneumothorax, status post Thoravent x2 and chest tube x4. 3. Yeast from the blood and possibly fungal sepsis. 4. Multiorgan failure. 5. Acute rhabdomyolysis. 6. Increased WBC possibly secondary to sepsis and leukemoid reaction. 7. Acute renal failure possible sepsis on hemodialysis. 8. Anemia, normocytic. 9. Hyponatremia. 10.Hyperkalemia, secondary to failure. 11.Elevated bilirubin, AST, ALT, hepatitis postoperative secondary to sepsis and liver failure. 12.History of coronary artery disease, stent placement. 13.History of congestive heart failure with chronic systolic dysfunction ejection fraction 50-60 percent. 14.Lactic acidosis. 15.Acute kidney injury. 16.Hypertension. 17.Hyperlipidemia. 18.History of nicotine dependence. 19.Obesity with body mass index of 36.7. 20.NO CODE, NO CPR, NO VENT. RECOMMENDATIONS AND DISCUSSION: In this 63-year-old gentleman who presented with multiple complex medical issues, at this time, I recommend to continue current medications, symptomatic treatment. I recommend continued IV antibiotics. I discussed with Dr. Wilson. The patient continues to be extremely poor because of multiorgan failure and other multiple complex medical issues. We will continue to monitor. Continue the antibiotics and cultures. Hemodialysis. Chest tube for a pneumothorax. Dr. Wilson is recommending also CT chest, abdomen and pelvis also. Once again overall prognosis guarded. Further recommendations to follow. MMODL / IJN: [id number] / FELICE
[2019-03-01] MEDS ORDERED: DEXTROSE 50%-WATER 50 ML SYRINGE IVP STA (18:24)
[2019-03-01 18:33] LABS: Glucose,Whole Blood 67 mg/dL (75-99)
[2019-03-01 18:56] LABS: Glucose,Whole Blood 88 mg/dL (75-99)
--- NOTE | 2019-03-01 20:25 | PN ---
PROGRESS NOTE Patient is seen for followup for acute kidney injury. This morning the patient remains on the vent. His Levophed is up to 37-40 mcg. Patient remains with no significant urine output. FiO2 is at 80%. Patient had a temperature of 102 degrees Fahrenheit early this morning, heart rate about 111 to 114 per minute, blood pressure 113/63. EXAMINATION OF THE HEART: S1 and S2. EXAMINATION OF LUNGS: Bilateral breath sounds are heard. Subcutaneous crepitus is present on the left side. Chest tube is still noted on the left side. ABDOMEN: Soft. Examination of lower extremities shows edema 2+ bilaterally with significant discoloration of the toes on both feet. Labs this morning show hemoglobin 8.3, white cell count 42.3, sodium 128, potassium 5.9, creatinine 4.05, BUN of 82, calcium 5.1, ionized calcium 2.9. ASSESSMENT: 1. Acute kidney injury, acute tubular necrosis, currently oliguric and dialysis- dependent. At this time patient is seen on dialysis. We have taken off about 600 mL of fluid. We will continue cautious ultrafiltration. Overall prognosis remains guarded, especially with increasing requirements for pressors. 2. Hyperkalemia associated with acute kidney injury, hypercatabolic state and rhabdomyolysis. Expect improvement with hemodialysis today. 3. Hypocalcemia secondary to vitamin D deficiency, renal failure. Maintained on supplementation. 4. Hypertriglyceridemia associated with Diprivan. Currently off of Diprivan. 5. Acute pancreatitis. Lipase is elevated at 485. 6. Acute hypoxic respiratory failure, currently on the vent. 7. Left pneumothorax with chest tube. It appears that the patient may need another chest tube placement. PLAN: Continue dialysis and ultrafiltration as tolerated. Overall prognosis is guarded. Patient may not tolerate further dialysis treatments. We will re-evaluate in a.m. MMODL / IJN: [id number] /
[2019-03-01] MEDS: INSULIN DETEMIR (LEVEMIR) 100 UNIT/ML SYR SQ SCH (20:49)
--- NOTE | 2019-03-01 21:50 | P.PN ---
Subjective Progress Note Date: 03/01/19 63-year-old male who has a history of tobacco use, coronary artery disease and congestive heart failure with the family relates is medically disabled because of his cardiac disease. He was ill earlier this week when he went to the walk-in clinic on Wednesday at that point in time was found to have evidence of fever and chest congestion. Influenza testing was positive for influenza a the patient was started on Tamiflu. The patient however then developed progressive decline of his status and on the presented to the emergency center. At that point in time he was profoundly ill with hypoxia, acidosis, and renal failure. He simply was admitted for intensive care unit he was intubated and has been sedated and mechanically ventilated. He is without significant hypotension is required multiple vasopressor agents that include Levophed and vasopressin, and has been treated with stress doses of steroids. The patient had worsening of his status and with his worsening pneumonia and refractory sepsis the infectious diseases consultation was requested. The patient's family is present. Relates that he has been with a declining medical status for some time but became acutely ill recently. None of the other family members are ill at this time. As noted the patient is intubated, sedated and mechanically ventilated and paralyzed further information from the family. The patient's status did worsen with a spontaneous pneumothorax which resulted in placement of two thoaravent devices which did not resolve the pneumothorax and constantly a chest tube was applied which has resolved most of the pneumothorax. As noted despite this remains hemodynamically unstable. 02/19/2019 the patient has had fever overnight. 102.1 recently. Intravenously acetaminophen has been given. With the change in the patient's PEEP to 16 there has now been a marked improvement of his oxygenation. He is on lower doses of vasopressor but remains with his acute renal failure and he is anicteric. As noted his sputum is evidence of Streptococcus pyogenes superimposed on influenza A. The case has been discussed with pulmonary critical care as well as nephrology. 02/20/2019 patient had difficulties with his chest tube and a new chest tube was then placed with marked improvement of his respiratory status. There has been a reduction in the amount of vasopressor therapy. Status post chest tube placement oxygenation is considerably improved. Fever has improved. No new positive cultures. Thrombocytopenia has worsened. Renal replacement therapy has been started 02/22/2019 patient remains in intensive care unit, intubated sedated and mechanically ventilated on vasopressor therapy. Leukocytosis persists in the thrombocytopenia has slightly improved. Vasopressor therapy is stable and there is been reduction in the amount of PEEP. Tolerated renal replacement therapy again 02/23/2019 receiving renal replacement therapy for the fifth time. Tolerating it well. Fevers have improved. Hypotension is improving. 02/24/2019 patient has had renal replacement therapy and has ongoing multisystem organ failure, with ARDS oliguric acute renal failure, hypotension. Hyperkalemia is persistent and further changed to hemodialysis tomorrow have been planned. Patient was febrile again. 02/26/2019 patient is had recurrent fever, no new positive cultures. The thoravent is removed today and chest tubes remain in place. Patient remains intubated sedated and mechanically ventilated. With multiple sessions of hemodialysis the creatinine is down to 3.05. White count remains elevated at 41.6. 03/01/2019 patient remains intubated sedated and mechanically ventilated and has had fever again. Multiple cultures performed and notable laboratories called from before for a possible culture with yeast. Sputum culture with Freda albicans. Case is discussed with pulmonary critical care. Objective - Vital Signs Vital signs: Vital Signs Temp 99.7 F H 03/01/19 20:00 Pulse 113 H 03/01/19 21:00 Resp 27 H 03/01/19 21:00 BP 123/66 03/01/19 21:00 Pulse Ox 97 03/01/19 21:00 Intake & Output 03/01/19 03/01/19 03/02/19 06:59 18:59 06:59 Intake Total 781.500 887.594 164.239 Output Total 116 2010 50 Balance 665.500 -1122.406 114.239 Weight 115.6 kg 115.6 kg Intake: IV 388 286 72 Clindamycin 600 mg In 50 Dextrose 5% in Water 50 ml @ 50 mls/hr IVPB Q8HR [facility] Rx#:[id number] Sodium Chloride 0.9% 1, 260 220 60 000 ml @ 20 mls/hr IV . Q24H [facility] Rx#:[id number] pressure bags 78 66 12 Intake, IV Titration 393.500 601.594 92.239 Amount Anidulafungin 100 mg In 200 Sodium Chloride 0.9% 100 ml @ 84 mls/hr IVPB DAILY NI Rx#:[id number] Calcium Gluconate 2 gm In 100 Sodium Chloride 0.9% 100 ml @ 60 mls/hr IVPB ONCE ONE Rx#:[id number] Clindamycin 600 mg In 50 Dextrose 5% in Water 50 ml @ 50 mls/hr IVPB Q8HR [facility] Rx#:[id number] Midazolam HCl 50 mg In 93.500 85.166 50 Sodium Chloride 0.9% 40 ml @ 5 MG/HR 5 mls/hr IV .Q10H [facility] Rx#:[id number] Norepinephrine 32 mg In 250.000 166.428 42.239 Sodium Chloride 0.9% 218 ml @ 0.05 MCG/KG/MIN 2. 233 mls/hr IV .Q24H [facility] Rx#:[id number] cefTRIAXone 2 gm In 50 Sodium Chloride 0.9% 50 ml @ 100 mls/hr IVPB Q24H [facility] Rx#:[id number] Output: Chest Tube Drainage 110 10 50 Chest Tube Left 110 50 left chest tube 10 0 Urine 6 0 Other 2000 Other: Voiding Method Indwelling Catheter Indwelling Catheter ABP, PAP, CO, CI - Last Documented Arterial Blood Pressure 90/52 - Exam 63-year-old male HEENT: Has evidence of mildly icteric conjunctiva are pale but moist nasal mucosa grossly intact without significant lesions, there is no thrush noted around the endotracheal tube. No evidence of bleeding Neck: The neck is supple without significant lymphadenopathy or thyromegaly. Lungs: There is symmetrical air entry however very coarse bronchial sounds are heard in all lung garsia and still amphoric sounds in the anterior aspect of the left chest where the Heart: Tachycardic no murmur is noted there is palpable subcutaneous emphysema along the anterior aspect of the shoulder and upper aspect of the chest above the clavicle Abdomen: Abdomen has few bowel sounds, it is soft minimally distended and can palpate no mass or organomegaly Extremities: The patient's hypoperfusion is noted there is now evidence of some distal fingertip necrosis of the hands and toes. Left foot is cooler than the right Neuro: Sedated paralyzed mechanically ventilated - Labs CBC & Chem 7: 03/01/19 04:30 03/01/19 04:30 Labs: Abnormal Lab Results - Last 24 Hours (Table) 02/28/19 03/01/19 03/01/19 Range/Units 23:56 04: 04:30 WBC 42.3 H (3.8-10.6) k/uL RBC 2.57 L (4.30-5.90) m/uL Hgb 8.3 L (13.0-17.5) gm/dL Hct 25.3 L (39.0-53.0) % RDW 16.8 H (11.5-15.5) % Neutrophils # (Manual) 37.60 H (1.3-7.7) k/uL Monocytes # (Manual) 2.12 H (0-1.0) k/uL Myelocytes # (Manual) 0.85 H (0) k/uL Nucleated RBCs 3 H (0-0) /100 WBC ABG pH 7.17 L* (7.35-7.45) ABG pCO2 56 H (35-45) mmHg ABG HCO3 20 L (21-25) mmol/L ABG O2 Saturation 93.5 L (94-97) % Sodium (137-145) mmol/L Potassium (3.5-5.1) mmol/L Chloride (98-107) mmol/L Carbon Dioxide (22-30) mmol/L BUN (9-20) mg/dL Creatinine (0.66-1.25) mg/dL Glucose (74-99) mg/dL POC Glucose (mg/dL) 114 H (75-99) mg/dL Calcium (8.4-10.2) mg/dL Ionized Calcium Ann (4.5-5.3) mg/dL Total Bilirubin (0.2-1.3) mg/dL AST (17-59) U/L ALT (21-72) U/L Alkaline Phosphatase (38-126) U/L Total Protein (6.3-8.2) g/dL Albumin (3.5-5.0) g/dL Triglycerides (<150) mg/dL Amylase (30-110) U/L Lipase (23-300) U/L 03/01/19 03/01/19 03/01/19 Range/Units 04:30 04:30 05:35 WBC (3.8-10.6) k/uL RBC (4.30-5.90) m/uL Hgb (13.0-17.5) gm/dL Hct (39.0-53.0) % RDW (11.5-15.5) % Neutrophils # (Manual) (1.3-7.7) k/uL Monocytes # (Manual) (0-1.0) k/uL Myelocytes # (Manual) (0) k/uL Nucleated RBCs (0-0) /100 WBC ABG pH (7.35-7.45) ABG pCO2 (35-45) mmHg ABG HCO3 (21-25) mmol/L ABG O2 Saturation (94-97) % Sodium 128 L (137-145) mmol/L Potassium 5.9 H (3.5-5.1) mmol/L Chloride 94 L (98-107) mmol/L Carbon Dioxide 17 L (22-30) mmol/L BUN 82 H (9-20) mg/dL Creatinine 4.05 H (0.66-1.25) mg/dL Glucose 112 H (74-99) mg/dL POC Glucose (mg/dL) 121 H (75-99) mg/dL Calcium 5.1 L* (8.4-10.2) mg/dL Ionized Calcium Ann 2.9 L* (4.5-5.3) mg/dL Total Bilirubin 7.6 H (0.2-1.3) mg/dL AST 537 H (17-59) U/L ALT 180 H (21-72) U/L Alkaline Phosphatase 394 H (38-126) U/L Total Protein 5.8 L (6.3-8.2) g/dL Albumin 2.3 L (3.5-5.0) g/dL Triglycerides 1378 H (<150) mg/dL Amylase 368 H* (30-110) U/L Lipase 485 H (23-300) U/L 03/01/19 03/01/19 Range/Units 11:25 18:22 WBC (3.8-10.6) k/uL RBC (4.30-5.90) m/uL Hgb (13.0-17.5) gm/dL Hct (39.0-53.0) % RDW (11.5-15.5) % Neutrophils # (Manual) (1.3-7.7) k/uL Monocytes # (Manual) (0-1.0) k/uL Myelocytes # (Manual) (0) k/uL Nucleated RBCs (0-0) /100 WBC ABG pH 7.19 L* (7.35-7.45) ABG pCO2 54 H (35-45) mmHg ABG HCO3 (21-25) mmol/L ABG O2 Saturation (94-97) % Sodium (137-145) mmol/L Potassium (3.5-5.1) mmol/L Chloride (98-107) mmol/L Carbon Dioxide (22-30) mmol/L BUN (9-20) mg/dL Creatinine (0.66-1.25) mg/dL Glucose (74-99) mg/dL POC Glucose (mg/dL) 67 L (75-99) mg/dL Calcium (8.4-10.2) mg/dL Ionized Calcium Ann (4.5-5.3) mg/dL Total Bilirubin (0.2-1.3) mg/dL AST (17-59) U/L ALT (21-72) U/L Alkaline Phosphatase (38-126) U/L Total Protein (6.3-8.2) g/dL Albumin (3.5-5.0) g/dL Triglycerides (<150) mg/dL Amylase (30-110) U/L Lipase (23-300) U/L Microbiology - Last 24 Hours (Table) 02/27/19 17:38 Blood Culture - Preliminary Blood No Growth after 48 hours 02/23/19 10:15 Blood Culture Gram Stain - Preliminary Blood 02/27/19 12:45 Blood Culture - Preliminary Blood No Growth after 48 hours 02/23/19 10:15 Blood Culture - Final Blood 02/27/19 11:15 Gram Stain - Final Sputum Sputum Culture - Final Freda albicans Laboratory Results WBC 42.3 k/uL (3.8-10.6) H 03/01/19 04:30 RBC 2.57 m/uL (4.30-5.90) L 03/01/19 04:30 Hgb 8.3 gm/dL (13.0-17.5) L 03/01/19 04:30 Hct 25.3 % (39.0-53.0) L 03/01/19 04:30 MCV 98.5 fL (80.0-100.0) 03/01/19 04:30 MCH 32.4 pg (25.0-35.0) 03/01/19 04:30 MCHC 32.9 g/dL (31.0-37.0) 03/01/19 04:30 RDW 16.8 % (11.5-15.5) H 03/01/19 04:30 Plt Count 221 k/uL (150-450) 03/01/19 04:30 Neutrophils % [employer] 02/28/19 04:35 Neutrophils % (Manual) 87 % 03/01/19 04:30 Band Neutrophils % 2 % 03/01/19 04:30 Lymphocytes % [employer] 02/28/19 04:35 Lymphocytes % (Manual) 4 % 03/01/19 04:30 Monocytes % [employer] 02/28/19 04:35 Monocytes % (Manual) 5 % 03/01/19 04:30 Eosinophils % [employer] 02/28/19 04:35 Eosinophils % (Manual) 1 % 02/28/19 04:35 Basophils % [employer] 02/28/19 04:35 Metamyelocytes % 2 % 02/28/19 04:35 Myelocytes % 2 % 03/01/19 04:30 Neutrophils # [employer] 02/28/19 04:35 Neutrophils # (Manual) 37.60 k/uL (1.3-7.7) H 03/01/19 04:30 Lymphocytes # [employer] ENG[employer] 02/28/19 04:35 Lymphocytes # (Manual) 1.69 k/uL (1.0-4.8) 03/01/19 04:30 Monocytes # [employer] ENGINEER 02/28/19 04:35 Monocytes # (Manual) 2.12 k/uL (0-1.0) H 03/01/19 04:30 Eosinophils # [employer] ENGINEER 02/28/19 04:35 Eosinophils # (Manual) 0.48 k/uL (0-0.7) 02/28/19 04:35 Basophils # [employer] ENGINEER 02/28/19 04:35 Metamyelocytes # (Man) 0.95 k/uL (0) H 02/28/19 04:35 Myelocytes # (Manual) 0.85 k/uL (0) H 03/01/19 04:30 Nucleated RBCs 3 /100 WBC (0-0) H 03/01/19 04:30 Differential Comment 02/27/19 12:45 Manual Slide Review Performed 03/01/19 04:30 Toxic Granulation Present 02/17/19 04:20 Toxic Vacuolation Present 02/26/19 03:30 Large Platelets Present 03/01/19 04:30 Polychromasia Present 02/28/19 04:35 Hypochromasia Slight 03/01/19 04:30 Poikilocytosis Moderate 03/01/19 04:30 Anisocytosis Slight 03/01/19 04:30 Macrocytosis Slight 03/01/19 04:30 PT 10.9 sec (9.0-12.0) 02/16/19 19:00 INR 1.0 (<1.2) 02/16/19 19:00 APTT 30.0 sec (22.0-30.0) 02/16/19 19:00 Sample Site yumiko 03/01/19 11:25 ABG pH 7.19 (7.35-7.45) L* 03/01/19 11:25 ABG pCO2 54 mmHg (35-45) H 03/01/19 11:25 ABG pO2 105 mmHg (83-108) 03/01/19 11:25 ABG HCO3 21 mmol/L (21-25) 03/01/19 11:25 ABG Total CO2 22 mmol/L (19-24) 03/01/19 11:25 ABG O2 Saturation 96.1 % (94-97) 03/01/19 11:25 ABG Base Excess -7.6 mmol/L 03/01/19 11:25 Lyndon Test no 03/01/19 11:25 FiO2 70 % 03/01/19 11:25 Sodium 128 mmol/L (137-145) L 03/01/19 04:30 Potassium 5.9 mmol/L (3.5-5.1) H 03/01/19 04:30 Chloride 94 mmol/L (98-107) L 03/01/19 04:30 Carbon Dioxide 17 mmol/L (22-30) L 03/01/19 04:30 Anion Gap 17 mmol/L 03/01/19 04:30 BUN 82 mg/dL (9-20) H 03/01/19 04:30 Creatinine 4.05 mg/dL (0.66-1.25) H 03/01/19 04:30 Est GFR (CKD-EPI)AfAm 17 (>60 ml/min/1.73 sqM) 03/01/19 04:30 Est GFR (CKD-EPI)NonAf 15 (>60 ml/min/1.73 sqM) 03/01/19 04:30 Glucose 112 mg/dL (74-99) H 03/01/19 04:30 POC Glucose (mg/dL) 88 mg/dL (75-99) 03/01/19 18:45 POC Glu Ditcher Operator ID Terence Lynn 03/01/19 18:45 Lactic Ac Sepsis Rflx Y 02/17/19 22:57 Plasma Lactic Acid Tra 7.6 mmol/L (0.7-2.0) H* 02/18/19 04:15 Calcium 5.1 mg/dL (8.4-10.2) L* 03/01/19 04:30 Ionized Calcium Ann 2.9 mg/dL (4.5-5.3) L* 03/01/19 04:30 Phosphorus 8.2 mg/dL (2.5-4.5) H 02/27/19 05:20 Magnesium 2.2 mg/dL (1.6-2.3) 02/27/19 05:20 Total Bilirubin 7.6 mg/dL (0.2-1.3) H 03/01/19 04:30 AST 537 U/L (17-59) H 03/01/19 04:30 ALT 180 U/L (21-72) H 03/01/19 04:30 Alkaline Phosphatase 394 U/L (38-126) H 03/01/19 04:30 Creatine Kinase 124654 U/L (55-170) H* 02/28/19 04:35 Troponin I 4.250 ng/mL (0.000-0.034) H* 02/18/19 04:15 NT-Pro-B Natriuret Pep 4770 pg/mL 02/16/19 19:00 Total Protein 5.8 g/dL (6.3-8.2) L 03/01/19 04:30 Albumin 2.3 g/dL (3.5-5.0) L 03/01/19 04:30 Triglycerides 1378 mg/dL (<150) H 03/01/19 04:30 Cholesterol 290 mg/dL (<200) H 02/27/19 18:55 LDL Cholesterol, Calc mg/dL (0-99) 02/27/19 18:55 HDL Cholesterol 11 mg/dL (40-60) L 02/27/19 18:55 Amylase 368 U/L (30-110) H* 03/01/19 04:30 Lipase 485 U/L (23-300) H 03/01/19 04:30 Vitamin D 25-Hydroxy 10.9 ng/mL (30.0-100.0) L 02/20/19 04:20 Urine Color Dark Brown 02/19/19 06:10 Urine Appearance Cloudy (Clear) 02/19/19 06:10 Urine pH 5.0 (5.0-8.0) 02/19/19 06:10 Ur Specific [place] 1.019 (1.001-1.035) 02/19/19 06:10 Urine Protein 1+ (Negative) H 02/19/19 06:10 Urine Glucose (UA) 1+ (Negative) H 02/19/19 06:10 Urine Ketones 1+ (Negative) H 02/19/19 06:10 Urine Blood Moderate (Negative) H 02/19/19 06:10 Urine Nitrite Negative (Negative) 02/19/19 06:10 Urine Bilirubin Negative (Negative) 02/19/19 06:10 Urine Urobilinogen <2.0 mg/dL (<2.0) 02/19/19 06:10 Ur Leukocyte Esterase Trace (Negative) H 02/19/19 06:10 Urine RBC 1 /hpf (0-5) 02/19/19 06:10 Urine WBC 1 /hpf (0-5) 02/19/19 06:10 Random Vancomycin 19.3 ug/mL 02/20/19 04:35 Heparin-Ind Plt Ab Scrn 0.169 OD (<0.4) 02/20/19 04:35 C. difficile (EIA) Intrp Negative (Negative) 02/25/19 04:30 Hep Bs Antigen Non-Reactive (Non-Reactive) 02/19/19 05:40 Hep Bs Antibody Non-Reactive (Non-Reactive) 02/19/19 05:40 Hep Bs Antibody, Quant 3.5 mIU/mL 02/19/19 05:40 Hep B Core Total Ab Non-Reactive (Non-Reactive) 02/19/19 05:40 Miscellaneous Test COMP/MG/PHOS 02/25/19 03:30 Misc Test Result See comment 02/25/19 03:30 Microbiology 02/27/19 17:38 Blood Blood Culture - Preliminary No Growth after 48 hours 02/23/19 10:15 Blood Blood Culture Gram Stain - Preliminary 02/27/19 12:45 Blood Blood Culture - Preliminary No Growth after 48 hours 02/23/19 10:15 Blood Blood Culture - Final 02/27/19 11:15 Sputum Gram Stain - Final 02/27/19 11:15 Sputum Sputum Culture - Final Freda albicans 02/27/19 10:00 Urine,Catheterized Urine Culture - Final 02/23/19 20:07 Sputum Gram Stain - Final 02/23/19 20:07 Sputum Sputum Culture - Final Freda albicans 02/16/19 19:00 Blood Blood Culture - Final No Growth after 144 hours 02/18/19 11:45 Pleural Fluid Gram Stain - Final 02/18/19 11:45 Pleural Fluid Body Fluid Culture - Final 02/17/19 12:54 Sputum Gram Stain - Final 02/17/19 12:54 Sputum Sputum Culture - Final Strep pyogenes (grp a) 02/17/19 10:00 Urine,Catheterized Urine Culture - Final Assessment and Plan (1) Influenza A Current Visit: Yes Status: Acute Code(s): J10.1 - FLU DUE TO OTH IDENT INFLUENZA VIRUS W OTH RESP MANIFEST SNOMED Code(s): 179063242 (2) Pneumonia and influenza Narrative/Plan: 63-year-old male who is a history of underlying cardiovascular disease and has been medically disabled presents to Hospital with a relatively short history of influenza A. The patient has the rapid onset of progressive shortness of breath and has now developed respiratory failure, acute lung injury with acute renal failure. Pulmonary critical care is having difficulties of a dequate oxygenation and the patient has poor urinary output. His and seen by nephrology and they're contemplating Sled therapy if his hypotension can be further managed. Influenza A is associated with aggressive pneumonia staph aureus and Streptococcus pyogenes given associated with severe necrotizing pneumonia directly links to the influenza infection. We'll continue the active treatment of the influenza with the Tamiflu. Antibiotic therapy with vancomycin and Levaquin has been utilized pending further data. Of note if the patient has been seen the laboratory relates that showed Streptococcus pyogenes has been isolated in the respiratory secretions. Concern this is a super antigen type strain and constantly antibiotic therapy is altered to ceftriaxone ( with penicillin ALLERGY) and clindamycin was added to attempt to reduce toxin production. Overall prognosis is very poor. 02/19/2019 the patient has now had some measurable improvement. When the PEEP was increased to 16 the patient started fractionate much better and is now had further improvement of several of his parameters including improved hypotension. However has acute renal failure and the case has been discussed with medical care and nephrology. IV access for dialysis is to be placed and hopefully will be over start dialysis soon. As patient is more hemodynamically stable. The antimicrobial therapy with Rocephin and clindamycin are being utilizes point in time. Patient likely has a super antigen strain of strep resulting in the current profound level of illness. 02/20/2019 patient remains profoundly ill with multisystem organ failure however with the new chest tube there is been some improvement of his respiratory status. He is receiving renal replacement therapy and remains on vasopressor therapy. The pneumonia from influenza and super infection with Streptococcus pyogenses is occurring and is on antiviral and antibiotic therapy. For now supportive care is continuing prognosis remains very poor 02/22/2019 patient's status remains intubated, sedated chemically ventilated and vasopressor therapy. Leukocytosis is stable and from a combination of the significant influenza, necrotizing Streptococcus pyogenes pneumonia and hydrocortisone therapy. The thrombocytopenia has improved from 24-42, likely relating to some improvement of his sepsis with renal replacement therapy the regimen is down to 5.97, and related that it was well-tolerated today. Antibiotic therapy continues with high-dose Rocephin and clindamycin for the isolated pathogens. Tamiflu continues given the profound respiratory failure originally from influenza A. 02/23/2019 patient remains intubated sedated and mechanically ventilated requiring vasopressor therapy. Over there are some improvements in the last day that the amount of PEEP requirement has gone down, vasopressor therapy is stable and tolerating dialysis without increased amounts of vasopressor. Is having much more effective dialysis session today. Patient remains profoundly ill continues to have leukocytosis but the thrombocytopenia is improving the treatment of uremia and underlying sepsis. Is on the Tamiflu and antibiotic therapy with Rocephin and clindamycin continue no new positive cultures. Prognosis remains poor. 02/24/2019 patient remains with multisystem organ failure, with multiple sessions of hemodialysis there has been some slight improvement in his pulmonary status. Remains on vasopressor therapy Patient is now developing increasing leukocytosis. Etiology is not entirely clear however he is receiving stress doses of hydrocortisone which may be driving the leukocytosis. Other concerns include worsening sepsis or develop of underlying organ ischemia. The patient is on clindamycin therapy and if develops diarrhea will need to be concerned about the possibility of C. diff colitis also. Prognosis remains poor. 02/26/2019 patient remains in intensive care unit intubated sedated and mechanically ventilated. Did have a brief period without fever but again has had a temperature as high as 103.8 Fahrenheit. Currently improved and on the cooling blanket. Patient has evidence of increased total bilirubin and liver function tests were markedly elevated evidence of shock liver in addition to the acute renal failure with ATN. Remains on vasopressor therapy and has the respiratory failure. The patient now has progression of the ischemic changes to the fingertips and toes is worse in the last day. Prognosis is very poor this is related to family member. 03/01/2019 is noted patient had ongoing fever and follow-up cultures have been performed and now there is evidence of 1 blood culture that is evidence of yeast which will be Freda albicans based on the recent sputum culture. Follow blood cultures have been requested. Eraxis is been initiated. If the patient has any further positive blood cultures within need to have hemodialysis catheter removed and exchanged. Would also need to have his troponin catheter exchange. This is been discussed with the critical care and would not initiate total parenteral nutrition at this point in time given the current fungemia. The patient's family is informed of the current status. There are informed that infection is not Freda auris. Current Visit: Yes Status: Acute Code(s): J11.00 - FLU DUE TO UNIDENTIFIED FLU VIRUS W UNSP TYPE OF PNEUMONIA SNOMED Code(s): 480654409 (3) Acute renal failure Current Visit: Yes Status: Acute Code(s): N17.9 - ACUTE KIDNEY FAILURE, UNSPECIFIED SNOMED Code(s): 75350712
[2019-03-01 23:02] LABS: Glucose,Whole Blood 171 mg/dL (75-99)
[2019-03-02] MEDS: CLINDAMYCIN 600 MG in DEXTROSE 5% IN WATER 50 ML IVPB SCH ×6 (01:42→18:32)
[2019-03-02] MEDS: INSULIN ASPART (NovoLOG) 100 UNIT/ML VIAL SQ SCH ×4 (01:43→18:28)
[2019-03-02 01:50] LABS: Glucose,Whole Blood 131 mg/dL (75-99)
[2019-03-02] MEDS: IPRATROPIUM-ALBUTEROL 3 ML NEB INHALATION SCH ×6 (03:00→23:12)
[2019-03-02] MEDS: MIDAZOLAM HCL 50 MG in SODIUM CHLORIDE 0.9% 40 ML IV SCH ×3 (03:53→18:28)
[2019-03-02] MEDS: HYDROCORTISONE SUCCINATE 100 MG/2 ML VIAL IV SCH ×3 (04:27→20:49)
[2019-03-02] MEDS: NOREPINEPHRINE 32 MG in SODIUM CHLORIDE 0.9% 218 ML IV SCH ×2 (04:44→20:05)
[2019-03-02 05:20] LABS: ABG Base Excess -11.7 mmol/L; ABG HCO3 17 mmol/L (21-25); ABG PCO2 47 mmHg (35-45); ABG PO2 102 mmHg (83-108); ABG TCO2 18 mmol/L (19-24)
[2019-03-02 05:32] LABS: ABG PH 7.16 (7.35-7.45)
[2019-03-02 05:43] LABS: Albumin 2.3 g/dL (3.5-5.0); Magnesium 2.3 mg/dL (1.6-2.3); Phosphorus 8.7 mg/dL (2.5-4.5); Potassium 5.1 mmol/L (3.5-5.1); Total Bilirubin 10.6 mg/dL (0.2-1.3); Total Protein 5.7 g/dL (6.3-8.2)
[2019-03-02 06:07] LABS: Calcium 5.9 mg/dL (8.4-10.2)
[2019-03-02 07:05] LABS: Glucose,Whole Blood 164 mg/dL (75-99)
[2019-03-02] MEDS ORDERED: CALCIUM GLUCONATE 2 GM in SODIUM CHLORIDE 0.9% 100 ML IVPB ONE (07:30)
[2019-03-02 07:49] LABS: Anisocytosis Slight; HCT 23.1 % (39.0-53.0); HGB 7.7 gm/dL (13.0-17.5); Hypochromasia Marked; MCH 34.3 pg (25.0-35.0); MCHC 33.3 g/dL (31.0-37.0); MCV 102.9 fL (80.0-100.0); Macrocytosis Moderate; Mean Platelet Volume 10.7; Platelet Count 230 k/uL (150-450); Poikilocytosis Marked; RBC 2.25 m/uL (4.30-5.90)
--- NOTE | 2019-03-02 08:09 | P.PN ---
Subjective Progress Note Date: 03/02/19 Principal diagnosis: Spontaneous left sided pneumothorax, acute hypoxic respiratory failure secondary to influenza A and streptococcus pyogenes pneumonia with prolonged mechanical ventilation, acute kidney injury secondary to acute tubular necrosis due to hypotension and sepsis, acute septic shock with multisystem organ failure, hypertriglyceridemia, shock liver, mild troponin elevation. History of CAD with prior stenting, hypertension, hyperlipidemia, chronic tobacco abuse. Thrombocytopenia. Rhabdomyolysis. POD #12 left chest thoravent placement x 2 and left thoracostomy tube placement POD #11 left femoral dialysis catheter placed by Dr. Barker POD #10 placement of second left thoracostomy tube for recurrent pneumothorax despite left thoracostomy tube in place POD #1 placement of third left thoracostomy tube for recurrent pneumothorax with continuous air leak The patient is currently laying in bed in the intensive care unit, still mechanically ventilated, ventilator adjustments per pulmonology. Remains on levo, increased again from yesterday, IV vasopressin added. Chest tube remains in place chest tube placed yesterday. Currently sinus tach. Sedated on Versed. Has received daily dialysis. Remains febrile, T-max in last 24 hours 101.1F. Remains on ceftriaxone, clindamycin per Dr. Shipley, given 1 dose Eraxis yesterday. Blood culture from February 27 still pending but no growth in 48 hours, sputum culture reporting Freda, pleural fluid culture from February 18 negative. Patient remains critically ill with poor prognosis. Objective - Vital Signs Vital signs: Vital Signs Temp 98.2 F 03/02/19 04:00 Pulse 106 H 03/02/19 06:30 Resp 29 H 03/02/19 06:30 BP 115/65 03/02/19 06:30 Pulse Ox 97 03/02/19 06:30 Intake & Output 03/01/19 03/02/19 03/02/19 18:59 06:59 18:59 Intake Total 887.594 500.072 Output Total 2009 181 Balance -1122.406 319.072 Weight 115.6 kg 112.7 kg Intake: IV 286 329 Clindamycin 600 mg In 50 Dextrose 5% in Water 50 ml @ 50 mls/hr IVPB Q8HR [facility] Rx#:[id number] Sodium Chloride 0.9% 1, 220 240 000 ml @ 20 mls/hr IV . Q24H [facility] Rx#:[id number] pressure bags 66 39 Intake, IV Titration 601.594 171.072 Amount Anidulafungin 100 mg In 200 Sodium Chloride 0.9% 100 ml @ 84 mls/hr IVPB DAILY [facility] Rx#:[id number] Calcium Gluconate 2 gm In 100 Sodium Chloride 0.9% 100 ml @ 60 mls/hr IVPB ONCE ONE Rx#:[id number] Clindamycin 600 mg In 50 Dextrose 5% in Water 50 ml @ 50 mls/hr IVPB Q8HR [facility] Rx#:[id number] Midazolam HCl 50 mg In 85.166 87.5 Sodium Chloride 0.9% 40 ml @ 5 MG/HR 5 mls/hr IV .Q10H [facility] Rx#:[id number] Norepinephrine 32 mg In 166.428 83.572 Sodium Chloride 0.9% 218 ml @ 0.05 MCG/KG/MIN 2. 233 mls/hr IV .Q24H [facility] Rx#:[id number] Output: Chest Tube Drainage 10 179 Chest Tube Left 79 left chest tube 10 100 Urine 0 Urine/Stool Mix 2 Other 1999 Other: Voiding Method Indwelling Catheter Indwelling Catheter ABP, PAP, CO, CI - Last Documented Arterial Blood Pressure 95/47 - Constitutional Constitutional Comment(s): Critically ill appearing - Respiratory Details: Lung sounds diminished bilaterally with coarse breath sounds. Respirations even, non-labored on mechanical ventilation. Current ventilator settings AC mode, FiO2 60%, TV 550, RR 32 PEEP 5. 8.0 ETT present, 23 at the lip. Left chest tube #1 to continuous wall suction, 100 mL serous drainage overnight, 250 mL output in 24 hours, continuous air leak remains present. Left chest tube #2 to continuous wall suction, 30 mL serous drainage since placement, no air leak present. - Cardiovascular Details: S1/S2 present. Tachycardic but regular rate and rhythm, sinus tach on telemetry. Doppler peripheral pulses bilaterally. Generalized edema present. S CDs present. Left radial arterial line, right internal jugular triple lumen central line present. - Gastrointestinal Gastrointestinal Comment(s): Abdomen soft, slightly distended. Hypoactive bowel sounds present x 4 quadrants. OGT present, tube feeding currently on hold due to high residual. - Genitourinary Genitourinary Comment(s): Loo present, virtually no urine output overnight. Left femoral temporary dialysis catheter present. - Integumentary Integumentary Comment(s): Skin is cool. Fluid blisters present to upper extremities and thighs. Bilateral lower extremities mottled with blue/black toes, fingers blue/black as well right more so than the left. - Psychiatric Psychiatric Comment(s): Currently sedated on 7.5 mg/hr of Versed - Allied health notes Allied health notes reviewed: nursing - Labs CBC & Chem 7: 03/01/19 04:30 03/02/19 05:20 Labs: Abnormal Lab Results - Last 24 Hours (Table) 03/01/19 03/01/19 03/01/19 Range/Units 04:30 11:25 18:22 ABG pH 7.19 L* (7.35-7.45) ABG pCO2 54 H (35-45) mmHg ABG HCO3 (21-25) mmol/L ABG Total CO2 (19-24) mmol/L Sodium (137-145) mmol/L Carbon Dioxide (22-30) mmol/L BUN (9-20) mg/dL Creatinine (0.66-1.25) mg/dL Glucose (74-99) mg/dL POC Glucose (mg/dL) 67 L (75-99) mg/dL Calcium (8.4-10.2) mg/dL Phosphorus (2.5-4.5) mg/dL Total Bilirubin (0.2-1.3) mg/dL AST (17-59) U/L ALT (21-72) U/L Alkaline Phosphatase (38-126) U/L Total Protein (6.3-8.2) g/dL Albumin (3.5-5.0) g/dL Triglycerides 1378 H (<150) mg/dL Amylase 368 H* (30-110) U/L Lipase 485 H (23-300) U/L 03/01/19 03/02/19 03/02/19 Range/Units 22:40 01:38 05:13 ABG pH 7.16 L* (7.35-7.45) ABG pCO2 47 H (35-45) mmHg ABG HCO3 17 L (21-25) mmol/L ABG Total CO2 18 L (19-24) mmol/L Sodium (137-145) mmol/L Carbon Dioxide (22-30) mmol/L BUN (9-20) mg/dL Creatinine (0.66-1.25) mg/dL Glucose (74-99) mg/dL POC Glucose (mg/dL) 171 H 131 H (75-99) mg/dL Calcium (8.4-10.2) mg/dL Phosphorus (2.5-4.5) mg/dL Total Bilirubin (0.2-1.3) mg/dL AST (17-59) U/L ALT (21-72) U/L Alkaline Phosphatase (38-126) U/L Total Protein (6.3-8.2) g/dL Albumin (3.5-5.0) g/dL Triglycerides (<150) mg/dL Amylase (30-110) U/L Lipase (23-300) U/L 03/02/19 03/02/19 Range/Units 05:20 06:44 ABG pH (7.35-7.45) ABG pCO2 (35-45) mmHg ABG HCO3 (21-25) mmol/L ABG Total CO2 (19-24) mmol/L Sodium 130 L (137-145) mmol/L Carbon Dioxide 15 L (22-30) mmol/L BUN 68 H (9-20) mg/dL Creatinine 3.29 H (0.66-1.25) mg/dL Glucose 174 H (74-99) mg/dL POC Glucose (mg/dL) 164 H (75-99) mg/dL Calcium 5.9 L* (8.4-10.2) mg/dL Phosphorus 8.7 H (2.5-4.5) mg/dL Total Bilirubin 10.6 H (0.2-1.3) mg/dL AST 408 H (17-59) U/L ALT 181 H (21-72) U/L Alkaline Phosphatase 371 H (38-126) U/L Total Protein 5.7 L (6.3-8.2) g/dL Albumin 2.3 L (3.5-5.0) g/dL Triglycerides (<150) mg/dL Amylase (30-110) U/L Lipase (23-300) U/L Microbiology - Last 24 Hours (Table) 02/27/19 17:38 Blood Culture - Preliminary Blood No Growth after 48 hours 02/23/19 10:15 Blood Culture Gram Stain - Preliminary Blood 02/27/19 12:45 Blood Culture - Preliminary Blood No Growth after 48 hours 02/23/19 10:15 Blood Culture - Final Blood 02/27/19 11:15 Gram Stain - Final Sputum Sputum Culture - Final Freda albicans Assessment and Plan Assessment: 1. Spontaneous left pneumothorax, status post thoravent and multiple thoracos donaldo tube placement 2. Acute hypoxic respiratory failure with influenza A and streptococcus pyrogene s pneumonia, ARDS with prolonged mechanical ventilation 3. Acute kidney injury secondary to acute tubular necrosis, status post temporary dialysis placement with daily dialysis 4. Acute septic shock with lactic acidosis 5. Multisystem organ failure 6. Hypertriglyceridemia 7. Shock liver 8. Troponin elevation 9. History of CAD with prior stenting 10. History of hypertension, currently hypotensive on levo 11. Hyperlipidemia 12. Chronic tobacco dependance 13. Thrombocytopenia, HIT panel negative 14. Rhabdomyolysis Plan: 1. Continue left pleural chest tubes to continuous wall suction, will monitor for resolution of air leak. 2. Will monitor daily labs, x-rays. CT of the chest, abdomen and pelvis ordered per Dr. Wilson. 3. Wean ventilator as tolerated. Ventilator management per pulmonology 4. Bronchodilators, steroids per pulmonology 5. Antibiotics per infectious disease. Follow cultures. Eraxis given yesterday per Dr. Shipley. 6. GI/DVT prophylaxis with protonix, SCDs. 7. Resume tube feeding when able versus possible TPN for nutrition. 8. Avoid nephrotoxic agents. Continue hemodiaysis per nephrology. Wean levo, vaso as able. 9. Medical management of other comorbid conditions per primary care service. 10. Will continue to follow. Patient's prognosis is very poor. Time with Patient: Greater than 30
--- NOTE | 2019-03-02 09:17 | XR ---
EXAMINATION TYPE: XR chest 1V portable DATE OF EXAM: 03/02/2019 COMPARISON: 03/01/2019 INDICATION: Pneumothorax TECHNIQUE: Single frontal view of the chest is obtained. FINDINGS: The heart size is normal. The pulmonary vasculature is normal. 2 left-sided chest tubes are present. The basilar chest tube appears to be advanced from prior exam. There is a left apical pneumothorax estimated at 30%. This is stable in size from comparison. There is some increased density within the left lower lung field which can be related to some atelect asis. Some bullous formation is likely present within the left midlung. Mild right basilar atelectasi s may be present. Right central venous catheter is present with the tip in the right atrium. An endotracheal tube is pr esent with tip above the iban. Nasogastric tube barely transverses the thorax the tip in the proxim al left upper quadrant of the abdomen, this is stable from prior exam however could be advanced for m ore typical positioning. IMPRESSION: 1. Persistent pneumothorax left apex, stable from the previous day. 2. Bibasilar infiltrates likely related atelectasis. 3. Lines and catheters discussed above. The nasogastric tube tip is in the proximal upper quadrant of the abdomen and could be advanced.
[2019-03-02] MEDS: NICOTINE 21MG/24HR PATCH TRANSDERM SCH (09:23)
[2019-03-02] MEDS: CHLORHEXIDINE GLUCONATE 15 ML CUP MUCOUS MEM SCH ×2 (09:23→20:49)
[2019-03-02] MEDS: CALCIUM CARBONATE 500 MG CHEWABLE PO SCH ×2 (09:23→20:51)
[2019-03-02] MEDS: CALCIUM ACETATE 667 MG CAP PO SCH ×3 (09:23→18:32)
[2019-03-02] MEDS: PANTOPRAZOLE 40 MG/10 ML VIAL IVP SCH ×2 (09:24→20:49)
--- NOTE | 2019-03-02 09:35 | P.PN ---
Subjective Progress Note Date: 03/02/19 53-year-old male patient was being seen in the intensive care unit for respiratory failure, pneumonia, sepsis, multisystem organ failure. The patient was admitted on 02/16/2019. This morning the patient is sedated with Diprivan and is calm and comfortable and Diprivan is running at 60 g per KG per minute. He remains intubated on a mechanical ventilator. I noted that the patient was quite uncomfortable while being on a mechanical ventilator. He was double stacking and was breathing fast and he was having persistent amount of air leak in the Pleur-evac. Based on this, I made adjustments, and switch this patient to a VC mode with a tidal volume of 500, respiratory rate of 25, I time of 1.1 and this is a VC plus molds. I kept FiO2 at 50%. Awaiting subsequent blood gases. Nevertheless, with these changes, the patient is much more comfortable and synchronous with the mechanical ventilator. We don't have to given additional sedation such as Dilaudid or fentanyl. Meanwhile, the patient still has a left-sided chest tube. There is obvious air leak and the left-sided chest tube. Amount of fluid and urinating over the past 24 hours is minimal at this point in time. Chest x-ray shows bilateral pulmonary infiltrates and left-sided chest tube in place and there is no evidence of any sizable pneumothorax. Hemodynamically, the patient is on IV fluids currently running at 28 an hour. The patient is also on pressors and norepinephrine infusion is running at 10 g per minute. The patient is on dialysis. His last round of the analysis was done on 02/25/2019 where a total of 1.5 L of fluid was removed. He is about to have another session of dialysis today. He is dialysis catheter is inserted in his left femoral vein. He has an EF around 6065% and this was done in time of admission. In terms of his infection, the patient is still spiking temperature with a T-max of 101.3. His current temperatures 100.8. I noted ongoing rise in his white count and obviously there is a concern for reinfection. History volume a Right IJ seems to be quite clean and intact. He also has a femoral dialysis catheter. His skin is swollen and there is some areas of blistering and vesical formation due to fluid overload on multiple locations been no evidence of any cellulitis. He has cyanotic digits in his feet bilaterally and his right hand fingers and these are mainly related to the utilization of high dose of pressors at time of his septic shock. He is current antibiotic coverage including a combination of Rocephin and clindamycin per IDs recommendation. He is taking Nepro at the rate of 20 mL an hour. His most recent sputum Gram stain and culture showed Freda and strep pyogenous. On today's evaluation of 02/28/2019, the patient is doing poorly. The patient was found to have significant toxicity from Diprivan. The serum triglyceride was higher than 3500 and at that point the Diprivan was discontinued and the patient was started on Versed drip which is currently running at 12 mg an hour. The patient remains on a medical ventilator. He has think is on a mechanical ventilator however his having excess amount of leak from the chest tube and from opening from previous chest tube insertion. He is losing approximately 150 mL of volume as noted in the mechanical ventilator. He remains on assist control mode at the rate of 25, I time of 1.1, tidal volume of 500 and FiO2 has been increased up to 80% as the patient was having some issues with oxygenation overn ight. The morning blood gases showed a pH of 7.1 with a pCO2 of 59 and pO2 of 9600% FiO2. Chest x-ray from today shows a little bit of a left-sided pneumothorax which is increased in size compared to the yesterday's film and is currently at 15%. ET tube is in a good location. There is better pleural effusion consistent with CHF. Hemodynamically, the patient remains hypotensive and the patient is still requiring pressors initially at 20 mics and currently is up to 30 mics for blood pressure maintenance. His cardiac rhythm is sinus. He is showing ongoing signs of septicemia. His febrile. His white cell count is at 47. We have sent new blood cultures from the dialysis catheter and the triple-lumen catheter and the patient also has had sputum and blood and urine cultures. The results are still pending for now and there is no new cultures available at this point in time. Infectious disease on the case and the patient has been kept on a combination of clindamycin and Rocephin. The patient is not producing any urine output. He underwent hemodialysis yesterday where 2 L of fluid was also removed during the dialysis process. His creatinine is up to 2.9. Potassium level improved is down to 4.9. LFTs remain abnormal consistent with shock liver. Calcium level is low with an ionized calcium level of 3.7 the calcium was replaced. This morning we noted that the patient is having some abdominal distention. Tube feeds was stopped and the residual is quite high mortality thousand. This was placed to suctioning and currently the patient is nothing by mouth for now. The follow-up CPK level is pending from today. Meanwhile, the patient continues to have extensive digital necrosis and 3 of the extremities mainly the feet and the left upper extremity. A 9 is still func tional for now. on 03/01/2019 I'm seeing this patient for a follow-up. I already had a lengthy discussion with the yesterday evening and updated on the condition. The same was done this morning. The patient remains sedated on Versed and the Versed infusion is running at 10 mg an hour. This which was done and the patient had a very high triglyceride level that was attributed to propofol i nfusion. Once infusion was discontinued the follow-up triglyceride level came down to 1300. The amylase and lipase were noted to be slightly elevated and the patient has already developed difficulties in tolerating his she'll feeds and based on that the tube feeds are still on hold. Another attempt to feed this patient failed as the patient was having very high residuals. In any rate, the patient's tube feeds on hold. The liver function tests are gradually improving as the patient is recovering from his shock liver. Note that the bilirubin level is still elevated at 7.6 with an AST of 537 and ALT of 180 with an alkaline phosphatase of 394. In terms of his pulmonary status, the patient is a mechanical ventilator. The patient is on a assist-control mode with a tidal volume of 550, FiO2 at 70%, rate of 25 this morning and I time of 1.1 with a PEEP of 5. Chest x-ray showed a 15-20% pneumothorax on the left and the chest tube is in a good location and there is continuous air leak noted in the chest tube. 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 The patient had a follow-up blood gases this morning that showed respiratory acidosis. His pH is 7.17 with a pCO2 of 56 and pO2 of 84. He is losing volume because of his persistent air leak and this is estimated to be in the order of 100 mL based on the return tidal volumes. Peak air pressure is not elevated. The patient is not having any significant orotracheal secretions. Repeat cultures have been negative with exception of Freda albicans in the sputum. Dr. Shipley from infectious disease on the case. The patient has been kept on a combination of IV Rocephin 2 g every 24 hours and clindamycin. Note that the only positive culture was a strep and adjusted was cultured originally from this patient. White cell count remains elevated at 47,000. The patient has a right IJ triple-lumen catheter. The patient alsohas a hemodialysis catheter in his left femoral vein. He underwent another session of hemodialysis today. During the dialysis 2 L of IV fluid was removed. Nevertheless he did de velop some hypotension and the pressors have been modified to meet his blood pressure requirements. I have made recommendations to start this patient on vasopressin to optimize hemodynamics and gradually reduced a present dose of possible. He is still tapping on and off. He had a T-max of 102.5. His CPK level is on the decline. He continues to have necrotic digits in the lower extremities in the feet and the left upper extremity. He is doing poorly. The family is updated on his condition. Unfortunately, he has not had any major improvement over the past several days and this has been discussed again with the family. Daughter is also in the bedside. On 03/02/2019 I'm seeing this patient for a follow-up. He remains intubated on a mechanical ventilator. The vent setting currently is at a tidal volume of 550, FiO2 of 70%, PEEP of 5 and a respiratory rate of 32. Chest x-ray is s howing a persistent pneumothorax in the left apex and evidence of bibasilar infiltrates and the lines of the chest tubes are all in place. ET tube also is in a good location. He still having excess amount of air leaks and the 2 of the chest tubes were placed. Note that I had another chest tube yesterday on this patient based on his ongoing air leak and worsening pneumothorax. The pneumothorax on the left is around 30% and is stable compared to previous evaluations. Blood gases from this morning shows a pH of 7.16 with a pCO2 of 47 and pO2 of 102. His hemodynamics is essentially unchanged. He still requiring high-dose pressors including norepinephrine. He is also vasopressin. Uche hayes ell count is elevated at 47. The patient was found to have yeast in his blood culture that was collected on 02/23/2019. He was started on Eraxis. No urine output. Renal failure is still an ongoing issue and the patient underwent hemodialysis yesterday with 2 L of fluid being removed. His potassium level is at 5.1. Serum bicarb is at 15. LFTs are abnormal and bilirubin is on the rise up to 8.7 as the patient is looking more jaundice. Nevertheless, the rest of the LFTs are declining. The patient remains nothing by mouth for now. TPN was not initiated yet. He has a triple lumen cath in his right IJ and another dialysis catheter in his left femoral vein. The catheters will be kept in place pending further ulcers and will consider removing the dialysis catheter and replacing it in addition to the triple-lumen catheter of the patient continues to have persistent fungemia. Overall, the patient remains sedated on Versed., Comfortable sedated with the mechanical ventilator. He is obviously third spacing and has extensive multiple of edema in all 4 extremities, abdominal wall and scrotum. Family is updated on his condition Objective - Vital Signs Vital signs: Vital Signs Temp 98.7 F 03/02/19 08:00 Pulse 102 H 03/02/19 09:05 Resp 27 H 03/02/19 08:30 BP 115/65 03/02/19 06:30 Pulse Ox 98 03/02/19 08:30 Intake & Output 03/01/19 03/02/19 03/02/19 18:59 06:59 18:59 Intake Total 887.594 500.072 86.625 Output Total 2009 181 18 Balance -1122.406 319.072 68.625 Weight 115.6 kg 112.7 kg Intake: IV 286 329 46 Clindamycin 600 mg In 50 Dextrose 5% in Water 50 ml @ 50 mls/hr IVPB Q8HR [facility] Rx#:[id number] Sodium Chloride 0.9% 1, 220 240 40 000 ml @ 20 mls/hr IV . Q24H [facility] Rx#:[id number] pressure bags 66 39 6 Intake, IV Titration 601.594 171.072 40.625 Amount Anidulafungin 100 mg In 200 Sodium Chloride 0.9% 100 ml @ 84 mls/hr IVPB DAILY [facility] Rx#:[id number] Calcium Gluconate 2 gm In 100 Sodium Chloride 0.9% 100 ml @ 60 mls/hr IVPB ONCE ONE Rx#:[id number] Clindamycin 600 mg In 50 Dextrose 5% in Water 50 ml @ 50 mls/hr IVPB Q8HR [facility] Rx#:[id number] Midazolam HCl 50 mg In 85.166 87.5 40.625 Sodium Chloride 0.9% 40 ml @ 5 MG/HR 5 mls/hr IV .Q10H [facility] Rx#:[id number] Norepinephrine 32 mg In 166.428 83.572 Sodium Chloride 0.9% 218 ml @ 0.05 MCG/KG/MIN 2. 233 mls/hr IV .Q24H [facility] Rx#:[id number] Output: Chest Tube Drainage 10 179 10 Chest Tube Left 79 left chest tube 10 100 10 Urine 0 8 Urine/Stool Mix 2 Other 2000 Other: Voiding Method Indwelling Catheter Indwelling Catheter ABP, PAP, CO, CI - Last Documented Arterial Blood Pressure 106/52 - Exam Gen. appearance the patient has single-vessel a mechanical ventilator. Calm and comfortable and sedated. Orogastric and orotracheal tube are both in place. Head exam was generally normal. There was no scleral icterus or corneal arcus. Mucous membranes were moist. Neck was supple and without jugular venous distension, thyromegaly, or carotid bruits. Carotids were easily palpable bilaterally. There was no adenopathy. The patient has a right IJ triple-lumen catheter in place. Lungs sounds are diminished bilaterally and there is scattered rhonchi heard throughout the lung garsia bilaterally. There is a left-sided chest tubes in place with ongoing air leak. The patient has to chest tubes on the left next to each other on both of showing significant amount of air leaks. Cardiac exam revealed the PMI to be normally situated and sized. The rhythm was regular and no extrasystoles were noted during several minutes of auscultation. The first and second heart sounds were normal and physiologic splitting of the second heart sound was noted. There were no murmurs, rubs, clicks, or gallops.the patient has a chest tube in his left hemithorax. The chest tube is leaking air constantly. The stoma from the previous chest tube insertion is also leaking air. No subcu emphysema this point in time. Abdominal exam revealed normal bowel sounds. The abdomen was soft, non-tender, and without masses, organomegaly, or appreciable enlargement of the abdominal aorta. Extremities revealed cyanotic digits mainly involving the toes bilaterally and the fingers of the right hand. The left lower extremity and the foot is quite cold. There is positive Doppler signal. Right lower extremity is warm and pulses can be palpated. The right radial pulse is weak. Left radial pulse is present and the patient has a Artline catheter in place. There is also areas of skin excoriation over the right upper extremity at the site of a radial art line insertion. No clear-cut areas of cellulitis. Vesical formation due to fluid overload. The patient has signs signs of third spacing and edema throughout his body, upper and lower extremities and abdominal wall. Skin as mentioned above.the patient is having extensive third spacing and edema in lower extremities. There is some areas of vesicle formation blisters. No open wounds for now. The skin is weeping due to his fluid overload. Neurologically the patient sedated and calm and comfortable. No seizure activity. Pupils equal and symmetric to light. The patient remains on a Versed drip for now for sedation. - Labs CBC & Chem 7: 03/02/19 05:20 03/02/19 05:20 Labs: Abnormal Lab Results - Last 24 Hours (Table) 03/01/19 03/01/19 03/01/19 Range/Units 04:30 11:25 18:22 WBC (3.8-10.6) k/uL RBC (4.30-5.90) m/uL Hgb (13.0-17.5) gm/dL Hct (39.0-53.0) % MCV (80.0-100.0) fL RDW (11.5-15.5) % ABG pH 7.19 L* (7.35-7.45) ABG pCO2 54 H (35-45) mmHg ABG HCO3 (21-25) mmol/L ABG Total CO2 (19-24) mmol/L Sodium (137-145) mmol/L Carbon Dioxide (22-30) mmol/L BUN (9-20) mg/dL Creatinine (0.66-1.25) mg/dL Glucose (74-99) mg/dL POC Glucose (mg/dL) 67 L (75-99) mg/dL Calcium (8.4-10.2) mg/dL Phosphorus (2.5-4.5) mg/dL Total Bilirubin (0.2-1.3) mg/dL AST (17-59) U/L ALT (21-72) U/L Alkaline Phosphatase (38-126) U/L Total Protein (6.3-8.2) g/dL Albumin (3.5-5.0) g/dL Triglycerides 1378 H (<150) mg/dL Amylase 368 H* (30-110) U/L Lipase 485 H (23-300) U/L 03/01/19 03/02/19 03/02/19 Range/Units 22:40 01:38 05:13 WBC (3.8-10.6) k/uL RBC (4.30-5.90) m/uL Hgb (13.0-17.5) gm/dL Hct (39.0-53.0) % MCV (80.0-100.0) fL RDW (11.5-15.5) % ABG pH 7.16 L* (7.35-7.45) ABG pCO2 47 H (35-45) mmHg ABG HCO3 17 L (21-25) mmol/L ABG Total CO2 18 L (19-24) mmol/L Sodium (137-145) mmol/L Carbon Dioxide (22-30) mmol/L BUN (9-20) mg/dL Creatinine (0.66-1.25) mg/dL Glucose (74-99) mg/dL POC Glucose (mg/dL) 171 H 131 H (75-99) mg/dL Calcium (8.4-10.2) mg/dL Phosphorus (2.5-4.5) mg/dL Total Bilirubin (0.2-1.3) mg/dL AST (17-59) U/L ALT (21-72) U/L Alkaline Phosphatase (38-126) U/L Total Protein (6.3-8.2) g/dL Albumin (3.5-5.0) g/dL Triglycerides (<150) mg/dL Amylase (30-110) U/L Lipase (23-300) U/L 03/02/19 03/02/19 03/02/19 Range/Units 05:20 05:20 06:44 WBC 47.2 H (3.8-10.6) k/uL RBC 2.25 L (4.30-5.90) m/uL Hgb 7.7 L (13.0-17.5) gm/dL Hct 23.1 L (39.0-53.0) % MCV 102.9 H (80.0-100.0) fL RDW 18.0 H (11.5-15.5) % ABG pH (7.35-7.45) ABG pCO2 (35-45) mmHg ABG HCO3 (21-25) mmol/L ABG Total CO2 (19-24) mmol/L Sodium 130 L (137-145) mmol/L Carbon Dioxide 15 L (22-30) mmol/L BUN 68 H (9-20) mg/dL Creatinine 3.29 H (0.66-1.25) mg/dL Glucose 174 H (74-99) mg/dL POC Glucose (mg/dL) 164 H (75-99) mg/dL Calcium 5.9 L* (8.4-10.2) mg/dL Phosphorus 8.7 H (2.5-4.5) mg/dL Total Bilirubin 10.6 H (0.2-1.3) mg/dL AST 408 H (17-59) U/L ALT 181 H (21-72) U/L Alkaline Phosphatase 371 H (38-126) U/L Total Protein 5.7 L (6.3-8.2) g/dL Albumin 2.3 L (3.5-5.0) g/dL Triglycerides (<150) mg/dL Amylase (30-110) U/L Lipase (23-300) U/L Microbiology - Last 24 Hours (Table) 02/27/19 17:38 Blood Culture - Preliminary Blood No Growth after 48 hours 02/23/19 10:15 Blood Culture Gram Stain - Preliminary Blood 02/27/19 12:45 Blood Culture - Preliminary Blood No Growth after 48 hours 02/23/19 10:15 Blood Culture - Final Blood 02/27/19 11:15 Gram Stain - Final Sputum Sputum Culture - Final Freda albicans Assessment and Plan Plan: Assessment 1 acute hypoxic respiratory failure secondary to pneumonia. The patient had i nitially an influenza infection treated and subsequently presented with a strep pyogenes pneumonia and sepsis and multisystem organ failure and was still on a combination of Rocephin and clindamycin. The patient remains intubated on a mechanical ventilator. The patient continues to have a 30% pneumothorax on the left. He has persistent air leak and the chest is of inserted into the left lung to assist with the air leak and keep the lung expanded. Unstable to undergo a CAT scan of the chest for now. 2 acute hypoxic respiratory failure currently intubated on a mechanical ventilator the blood gases continues to show evidence of metabolic and respiratory acidosis. 3 acute tension pneumothorax involving the left lung post chest tube insertion, and the patient continues to have excess amount of air leak within the left- sided chest tubes 4 his stomach found a as the patient's blood culture from 02/23/2019 has shown positive yeast growth. The patient remains in acute septic shock secondary to above with multisystem organ failure, and the patient was started on Eraxis. 5 acute kidney injury with subsequent dialysis-dependent renal failure. It is to undergo periodic dialysis 6 profound shock and hypotension with development of ischemic toes and fingers secondary to high pressor use. The patient has necrotic digits in the toes bilaterally and the right hand 7 coronary artery disease with previous coronary intervention and stenting 8 rhabdomyolysis, recovering as the patient's CPK level remains elevated. This is most likely secondary to profound hypotension and muscle necrosis. 9 profound metabolic acidosis, improved, the patient's acidosis is essentially respiratory a component of metabolic acidosis and addition. 10 fluid overload secondary to aggressive fluid resuscitation 11 hyperlipidemia with significant hypertriglyceridemia 12 hypertension, history of 13 history of peripheral neuropathy 14 ongoing fever with leukocytosis, secondary to systemic fungemia 15 hyponatremia 16 rhabdomyolysis secondary to ischemic necrotic digits. 17 triglyceridemia decide a related to propofol infusion for extended period of time. 18 shock liver, improving, the patient has hyperbilirubinemia 19 increased gastric residuals and currently the patient is nothing by mouth Any hyperbilirubinemia. Plan keep the patient is sedated. Nothing by mouth for now. Keep the chest tube in place. No vent changes. Continue Eraxis. Continue pressors. We'll consider h emodialysis today if the patient remains hemodynamically stable. May need to consider removing the lines and replace them if the patient shows systemic fungemia. Very poor prognosis. High mortality risk. Discussed with the family. Critically care evaluation and this was done more than 30 minutes. Time with Patient: Greater than 30
[2019-03-02] MEDS ORDERED: ANIDULAFUNGIN 100 MG in SODIUM CHLORIDE 0.9% 100 ML IVPB SCH (10:00)
--- NOTE | 2019-03-02 11:16 | PN ---
PROGRESS NOTE Patient is seen for followup for acute kidney injury. Patient has had another chest tube placed. He currently has [address] for pneumothorax. He remains on the vent. Levophed is at about 27 mcg. PHYSICAL EXAMINATION: This morning, blood pressure was 112/61, heart rate 105 per minute. Patient is afebrile. Examination of the heart, S1, S2. Examination of the lungs, breath sounds are heard, note 2 chest tubes present on the left side. Abdomen is soft. Examination of the lower extremities shows edema and third spacing 3+ bilaterally and discoloration of the toes noted in both feet. [employer] exam cannot be performed. LABS: Show sodium 130, potassium 5.1, BUN 68, serum creatinine 3.29, calcium is 5.9, hemoglobin 7.7 g/dL. ASSESSMENT: 1. Acute kidney injury, ATN, oliguric, dialysis dependent. We will plan for hemodialysis today and try a goal UF of about 2 L as tolerated. 2. Recurrent left pneumothorax with chest tube in place. 3. Influenza A pneumonia. 4. Severe rhabdomyolysis. 5. Hyperkalemia associated with acute kidney injury. Severe rhabdomyolysis and tissue necrosis, currently improved. 6. Fungemia with Freda albicans, which is present in the sputum and in the blood, is a yeast species. 7. Metabolic acidosis associated with renal failure. Expect improvement with ongoing dialysis. PLAN: 1. Try hemodialysis again today and we will try to UF about 2 L. 2. Restage calcium. We will dialyze him on a high calcium dialysis. MMODL / IJN: [id number] /
[2019-03-02 11:41] LABS: Band Neutrophils % 4 %; Lymphocytes # (M) 1.82 k/uL (1.0-4.8); Metamyelocytes # (M) 0.45 k/uL (0); Metamyelocytes % 1 %; Monocytes # (M) 3.18 k/uL (0-1.0); Myelocytes # (M) 0.45 k/uL (0); Myelocytes % 1 %; Neutrophils % (M) 84 %; Nucleated Red Blood Cells 4 /100 WBC (0-0); Total Cells Counted 200; WBC 45.4 k/uL (3.8-10.6)
[2019-03-02 11:42] LABS: Polychromasia Present
[2019-03-02] MEDS: ASPIRIN 81 MG PO SCH (11:59)
[2019-03-02] MEDS: SODIUM CHLORIDE 0.9% 50 ML with VASOPRESSIN 20 UNIT IVPB SCH ×4 (12:00→23:04)
--- NOTE | 2019-03-02 12:16 | PCN ---
PROCEDURE NOTE PREOP DIAGNOSIS: Left-sided pneumothorax, persistent air leak. POSTOP DIAGNOSIS: Left-sided pneumothorax, persistent air leak. This was a chest tube insertion. SITE OF INSERTION: Left lung. I inserted a 28-Emirati chest tube in place without any complications and the tube was secured in place. No bedside complications. No bleeding. Chest x-rays to follow. MATT / LELIAN: [id number] /
[2019-03-02] MEDS: SODIUM CHLORIDE 0.9% 1,000 ML IV SCH (13:46)
[2019-03-02 13:59] LABS: Glucose,Whole Blood 148 mg/dL (75-99)
--- NOTE | 2019-03-02 18:07 | PN ---
PROGRESS NOTE DATE OF SERVICE: 03/02/2019 This 63-year-old gentleman admitted with acute influenza A with several complications is still being monitored in ICU at this time. The patient is on significant dose of Levophed pressor support as well as vasopressin. The patient also had features of sepsis, pneumonia, and multiorgan failure. The patient also had severe . Patient had multiple organisms grown from the culture including strep pneumonia and also yeast, currently yeast from the blood. Eraxis has been initiated for the anemia. Multiple consultants including Dr. Wilson and Dr. Shipley are following the patient closely. The patient also had fluctuating blood pressures. The patient also had renal failure, which is being managed by Dr. Montiel with hemodialysis. Hemodialysis is being planned today, provided the blood pressure is rather stable. PAST MEDICAL HISTORY: Reviewed. REVIEW OF SYSTEMS: Could not be taken, the patient mechanically ventilated and sedated. CURRENT MEDICATIONS ARE: Reviewed and include: 1. DuoNeb q.i.d. and p.r.n. 2. Eraxis that is anidulafungin. 3. Aspirin 81 mg. 4. PhosLo. 5. TUMS. 6. Rocephin daily. 7. Peridex. 8. Clindamycin IV. 9. Solu-Cortef 100 mg IV q.8h. 10.Dilaudid. 11.Motrin. 12.Levemir. 14.Habitrol. PHYSICAL EXAM: Patient is mechanically sedated. Vent settings are noted. Pulse is 116 and regular. Blood pressure 107/56, respiration 34, temperature normal, pulse ox 99% on 60% FiO2. HEENT: Conjunctivae normal. Oral mucosa moist. Neck is no jugular venous distention. No carotid bruit. No lymph node enlargement. Cardiovascular: S1, S2 muffled. RESPIRATORY: Breath sounds diminished in the bases. A few scattered rhonchi and crackles. ABDOMEN: Soft, nontender. No mass palpable. Legs: Bilateral leg edema. Bilateral significant vascular changes in the lower limbs also present and also both hands and fingers also. Skin: Some excoriation present. Nervous system: Patient is mechanically ventilated and sedated. Skin: As mentioned earlier. LABS: WBC 45.3, hemoglobin 7.7. ABG 7.16, sodium 130, potassium 5.9, creatinine 3.29, and total bilirubin is 10.6, AST is 408, ALT 181. Creatinine kinase is ntd. ASSESSMENT: 1. Acute influenza A complicated by pneumonia with severe sepsis and hypotension and septic shock as well as hypoxic respiratory failure with acute respiratory ARDS on mechanical ventilation. 2. Possible cavitary pneumonia on the left side with recurrent pneumothorax, status post ThoraVent and chest tube times four. 3. Yeast from the blood and fungemia and fungal sepsis. 4. Multi-organ failure. 5. Acute rhabdomyolysis. 6. Increased WBC possibly secondary to sepsis and leukemoid reaction. 7. Acute renal failure possibly secondary to sepsis, on hemodialysis. 8. Anemia, normocytic. 9. Hyponatremia. 10.Hyperkalemia secondary to renal failure. 11.Elevated bilirubin, AST, ALT, acute hepatitis possibly secondary to sepsis and liver failure. 12.History of coronary artery disease stent. 13.History of congestive heart failure with chronic systolic dysfunction, ejection fraction 50-60 percent. 14.Lactic acidosis. 15.Acute kidney injury. 16.Hypertension. 17.Hyperlipidemia. 18.History of nicotine dependence. 19.Obesity with body mass index of 36.7. 20.NO CODE, NO CPR, NO VENT. RECOMMENDATIONS AND DISCUSSION: In this 63 -year-old gentleman who presented with multiple complex medical issues, we will monitor the patient closely. The patient is on broad-spectrum IV antibiotics. Closely follow with Pulmonary, Infectious Disease. Hemodialysis when patient is stable. Otherwise, continue to monitor. Monitor creatinine kinase closely. The patient also possibly had features of myoglobinuria as well. Overall prognosis guarded because of multiple complex medical issues. Discussed with family at length. Further recommendations to follow. MMODL / IJN: [id number] / [id number]
[2019-03-02 18:39] LABS: Glucose,Whole Blood 107 mg/dL (75-99)
[2019-03-02] MEDS: ERGOCALCIFEROL 50,000 UNIT CAP PO SCH (20:49)
[2019-03-02] MEDS: CALCIUM GLUCONATE 1 GM in SODIUM CHLORIDE 0.9% 100 ML IVPB SCH (20:50)
[2019-03-02] MEDS: INSULIN DETEMIR (LEVEMIR) 100 UNIT/ML SYR SQ SCH (21:10)
--- NOTE | 2019-03-02 22:55 | P.PN ---
Subjective Progress Note Date: 03/02/19 63-year-old male who has a history of tobacco use, coronary artery disease and congestive heart failure with the family relates is medically disabled because of his cardiac disease. He was ill earlier this week when he went to the walk-in clinic on Wednesday at that point in time was found to have evidence of fever and chest congestion. Influenza testing was positive for influenza a the patient was started on Tamiflu. The patient however then developed progressive decline of his status and on the presented to the emergency center. At that point in time he was profoundly ill with hypoxia, acidosis, and renal failure. He simply was admitted for intensive care unit he was intubated and has been sedated and mechanically ventilated. He is without significant hypotension is required multiple vasopressor agents that include Levophed and vasopressin, and has been treated with stress doses of steroids. The patient had worsening of his status and with his worsening pneumonia and refractory sepsis the infectious diseases consultation was requested. The patient's family is present. Relates that he has been with a declining medical status for some time but became acutely ill recently. None of the other family members are ill at this time. As noted the patient is intubated, sedated and mechanically ventilated and paralyzed further information from the family. The patient's status did worsen with a spontaneous pneumothorax which resulted in placement of two thoaravent devices which did not resolve the pneumothorax and constantly a chest tube was applied which has resolved most of the pneumothorax. As noted despite this remains hemodynamically unstable. 02/19/2019 the patient has had fever overnight. 102.1 recently. Intravenously acetaminophen has been given. With the change in the patient's PEEP to 16 there has now been a marked improvement of his oxygenation. He is on lower doses of vasopressor but remains with his acute renal failure and he is anicteric. As noted his sputum is evidence of Streptococcus pyogenes superimposed on influenza A. The case has been discussed with pulmonary critical care as well as nephrology. 02/20/2019 patient had difficulties with his chest tube and a new chest tube was then placed with marked improvement of his respiratory status. There has been a reduction in the amount of vasopressor therapy. Status post chest tube placement oxygenation is considerably improved. Fever has improved. No new positive cultures. Thrombocytopenia has worsened. Renal replacement therapy has been started 02/22/2019 patient remains in intensive care unit, intubated sedated and mechanically ventilated on vasopressor therapy. Leukocytosis persists in the thrombocytopenia has slightly improved. Vasopressor therapy is stable and there is been reduction in the amount of PEEP. Tolerated renal replacement therapy again 02/23/2019 receiving renal replacement therapy for the fifth time. Tolerating it well. Fevers have improved. Hypotension is improving. 02/24/2019 patient has had renal replacement therapy and has ongoing multisystem organ failure, with ARDS oliguric acute renal failure, hypotension. Hyperkalemia is persistent and further changed to hemodialysis tomorrow have been planned. Patient was febrile again. 02/26/2019 patient is had recurrent fever, no new positive cultures. The thoravent is removed today and chest tubes remain in place. Patient remains intubated sedated and mechanically ventilated. With multiple sessions of hemodialysis the creatinine is down to 3.05. White count remains elevated at 41.6. 03/01/2019 patient remains intubated sedated and mechanically ventilated and has had fever again. Multiple cultures performed and notable laboratories called from before for a possible culture with yeast. Sputum culture with Freda albicans. Case is discussed with pulmonary critical care. 03/02/2019 the patient's fever has now improved with the initiation of antifungal therapy. Temperature is currently 98.7. There is no other acute change of status and that he is intubated, mechanically ventilated and sedated, with no improvement of the ischemic changes to the hands and feet. Objective - Vital Signs Vital signs: Vital Signs Temp 100.5 F H 03/02/19 20:00 Pulse 111 H 03/02/19 22:00 Resp 33 H 03/02/19 22:00 BP 119/70 03/02/19 09:30 Pulse Ox 100 03/02/19 22:00 Intake & Output 03/02/19 03/02/19 03/03/19 06:59 18:59 06:59 Intake Total 500.072 620.417 492 Output Total 181 60 110 Balance 319.072 560.417 382 Weight 112.7 kg Intake: IV 329 526 242 Anidulafungin 100 mg In 100 Sodium Chloride 0.9% 100 ml @ 84 mls/hr IVPB DAILY [facility] Rx#:[id number] Calcium Gluconate 2 gm In 100 100 Sodium Chloride 0.9% 100 ml @ 60 mls/hr IVPB ONCE ONE Rx#:[id number] Clindamycin 600 mg In 50 50 Dextrose 5% in Water 50 ml @ 50 mls/hr IVPB Q8HR [facility] [place] Rx#:[id number] Sodium Chloride 0.9% 1, 240 240 80 000 ml @ 20 mls/hr IV . Q24H [facility] Rx#:[id number] cefTRIAXone 2 gm In 50 Sodium Chloride 0.9% 50 ml @ 100 mls/hr IVPB Q24H [facility] Rx#:[id number] pressure bags 39 36 12 Intake, IV Titration 171.072 94.417 250 Amount Midazolam HCl 50 mg In 87.5 94.417 Sodium Chloride 0.9% 40 ml @ 5 MG/HR 5 mls/hr IV .Q10H [facility] Rx#:[id number] Norepinephrine 32 mg In 83.572 250 Sodium Chloride 0.9% 218 ml @ 0.05 MCG/KG/MIN 2. 233 mls/hr IV .Q24H [facility] [place] Rx#:[id number] Output: Chest Tube Drainage 179 40 110 Chest Tube Left 79 30 50 left chest tube 100 10 60 Urine 20 0 Urine/Stool Mix 2 Other: Voiding Method Indwelling Catheter Indwelling Catheter Indwelling Catheter ABP, PAP, CO, CI - Last Documented Arterial Blood Pressure 128/57 - Exam 63-year-old male HEENT: Has evidence of mildly icteric conjunctiva are pale but moist nasal mucosa grossly intact without significant lesions, there is no thrush noted around the endotracheal tube. No evidence of bleeding Neck: The neck is supple without significant lymphadenopathy or thyromegaly. Lungs: There is symmetrical air entry however very coarse bronchial sounds are heard in all lung garsia and still amphoric sounds in the anterior aspect of the left chest where the Heart: Tachycardic no murmur is noted there is palpable subcutaneous emphysema along the anterior aspect of the shoulder and upper aspect of the chest above the clavicle Abdomen: Abdomen has few bowel sounds, it is soft minimally distended and can palpate no mass or organomegaly Extremities: The patient's hypoperfusion is noted there is now evidence of some distal fingertip necrosis of the hands and toes. Left foot is cooler than the right Neuro: Sedated paralyzed mechanically ventilated - Labs CBC & Chem 7: 03/02/19 05:20 03/02/19 05:20 Labs: Abnormal Lab Results - Last 24 Hours (Table) 03/01/19 03/02/19 03/02/19 Range/Units 22:40 01:38 05:13 WBC (3.8-10.6) k/uL RBC (4.30-5.90) m/uL Hgb (13.0-17.5) gm/dL Hct (39.0-53.0) % MCV (80.0-100.0) fL RDW (11.5-15.5) % Neutrophils # (Manual) (1.3-7.7) k/uL Monocytes # (Manual) (0-1.0) k/uL Metamyelocytes # (Man) (0) k/uL Myelocytes # (Manual) (0) k/uL Nucleated RBCs (0-0) /100 WBC ABG pH 7.16 L* (7.35-7.45) ABG pCO2 47 H (35-45) mmHg ABG HCO3 17 L (21-25) mmol/L ABG Total CO2 18 L (19-24) mmol/L Sodium (137-145) mmol/L Carbon Dioxide (22-30) mmol/L BUN (9-20) mg/dL Creatinine (0.66-1.25) mg/dL Glucose (74-99) mg/dL POC Glucose (mg/dL) 171 H 131 H (75-99) mg/dL Calcium (8.4-10.2) mg/dL Phosphorus (2.5-4.5) mg/dL Total Bilirubin (0.2-1.3) mg/dL AST (17-59) U/L ALT (21-72) U/L Alkaline Phosphatase (38-126) U/L Creatine Kinase (55-170) U/L Total Protein (6.3-8.2) g/dL Albumin (3.5-5.0) g/dL Influenza Type A RNA (Not Detectd) 03/02/19 03/02/19 03/02/19 Range/Units 05:20 05:20 05:20 WBC 45.4 H (3.8-10.6) k/uL RBC 2.25 L (4.30-5.90) m/uL Hgb 7.7 L (13.0-17.5) gm/dL Hct 23.1 L (39.0-53.0) % MCV 102.9 H (80.0-100.0) fL RDW 18.0 H (11.5-15.5) % Neutrophils # (Manual) 39.90 H (1.3-7.7) k/uL Monocytes # (Manual) 3.18 H (0-1.0) k/uL Metamyelocytes # (Man) 0.45 H (0) k/uL Myelocytes # (Manual) 0.45 H (0) k/uL Nucleated RBCs 4 H (0-0) /100 WBC ABG pH (7.35-7.45) ABG pCO2 (35-45) mmHg ABG HCO3 (21-25) mmol/L ABG Total CO2 (19-24) mmol/L Sodium 130 L (137-145) mmol/L Carbon Dioxide 15 L (22-30) mmol/L BUN 68 H (9-20) mg/dL Creatinine 3.29 H (0.66-1.25) mg/dL Glucose 174 H (74-99) mg/dL POC Glucose (mg/dL) (75-99) mg/dL Calcium 5.9 L* (8.4-10.2) mg/dL Phosphorus 8.7 H (2.5-4.5) mg/dL Total Bilirubin 10.6 H (0.2-1.3) mg/dL AST 408 H (17-59) U/L ALT 181 H (21-72) U/L Alkaline Phosphatase 371 H (38-126) U/L Creatine Kinase 57340 H* (55-170) U/L Total Protein 5.7 L (6.3-8.2) g/dL Albumin 2.3 L (3.5-5.0) g/dL Influenza Type A RNA (Not Detectd) 03/02/19 03/02/19 03/02/19 Range/Units 06:44 13:30 18:15 WBC (3.8-10.6) k/uL RBC (4.30-5.90) m/uL Hgb (13.0-17.5) gm/dL Hct (39.0-53.0) % MCV (80.0-100.0) fL RDW (11.5-15.5) % Neutrophils # (Manual) (1.3-7.7) k/uL Monocytes # (Manual) (0-1.0) k/uL Metamyelocytes # (Man) (0) k/uL Myelocytes # (Manual) (0) k/uL Nucleated RBCs (0-0) /100 WBC ABG pH (7.35-7.45) ABG pCO2 (35-45) mmHg ABG HCO3 (21-25) mmol/L ABG Total CO2 (19-24) mmol/L Sodium (137-145) mmol/L Carbon Dioxide (22-30) mmol/L BUN (9-20) mg/dL Creatinine (0.66-1.25) mg/dL Glucose (74-99) mg/dL POC Glucose (mg/dL) 164 H 148 H (75-99) mg/dL Calcium (8.4-10.2) mg/dL Phosphorus (2.5-4.5) mg/dL Total Bilirubin (0.2-1.3) mg/dL AST (17-59) U/L ALT (21-72) U/L Alkaline Phosphatase (38-126) U/L Creatine Kinase (55-170) U/L Total Protein (6.3-8.2) g/dL Albumin (3.5-5.0) g/dL Influenza Type A RNA Detected H (Not Detectd) 03/02/19 Range/Units 18:27 WBC (3.8-10.6) k/uL RBC (4.30-5.90) m/uL Hgb (13.0-17.5) gm/dL Hct (39.0-53.0) % MCV (80.0-100.0) fL RDW (11.5-15.5) % Neutrophils # (Manual) (1.3-7.7) k/uL Monocytes # (Manual) (0-1.0) k/uL Metamyelocytes # (Man) (0) k/uL Myelocytes # (Manual) (0) k/uL Nucleated RBCs (0-0) /100 WBC ABG pH (7.35-7.45) ABG pCO2 (35-45) mmHg ABG HCO3 (21-25) mmol/L ABG Total CO2 (19-24) mmol/L Sodium (137-145) mmol/L Carbon Dioxide (22-30) mmol/L BUN (9-20) mg/dL Creatinine (0.66-1.25) mg/dL Glucose (74-99) mg/dL POC Glucose (mg/dL) 107 H (75-99) mg/dL Calcium (8.4-10.2) mg/dL Phosphorus (2.5-4.5) mg/dL Total Bilirubin (0.2-1.3) mg/dL AST (17-59) U/L ALT (21-72) U/L Alkaline Phosphatase (38-126) U/L Creatine Kinase (55-170) U/L Total Protein (6.3-8.2) g/dL Albumin (3.5-5.0) g/dL Influenza Type A RNA (Not Detectd) Microbiology - Last 24 Hours (Table) 02/27/19 17:38 Blood Culture - Preliminary Blood No Growth after 72 hours 02/27/19 12:45 Blood Culture - Preliminary Blood No Growth after 72 hours 02/23/19 10:15 Blood Culture Gram Stain - Final Blood Blood Culture - Final Freda albicans Laboratory Results WBC 45.4 k/uL (3.8-10.6) H 03/02/19 05:20 RBC 2.25 m/uL (4.30-5.90) L 03/02/19 05:20 Hgb 7.7 gm/dL (13.0-17.5) L 03/02/19 05:20 Hct 23.1 % (39.0-53.0) L 03/02/19 05:20 MCV 102.9 fL (80.0-100.0) H 03/02/19 05:20 MCH 34.3 pg (25.0-35.0) 03/02/19 05:20 MCHC 33.3 g/dL (31.0-37.0) 03/02/19 05:20 RDW 18.0 % (11.5-15.5) H 03/02/19 05:20 Plt Count 230 k/uL (150-450) 03/02/19 05:20 Neutrophils % [employer] ASSOC[employer]ATE 02/28/19 04:35 Neutrophils % (Manual) 84 % 03/02/19 05:20 Band Neutrophils % 4 % 03/02/19 05:20 Lymphocytes % [employer] 02/28/19 04:35 Lymphocytes % (Manual) 4 % 03/02/19 05:20 Monocytes % [employer]ATE 02/28/19 04:35 Monocytes % (Manual) 7 % 03/02/19 05:20 Eosinophils % [employer] ASSOCIATE 02/28/19 04:35 Eosinophils % (Manual) 1 % 02/28/19 04:35 Basophils % [employer] ASSOCIATE 02/28/19 04:35 Metamyelocytes % 1 % 03/02/19 05:20 Myelocytes % 1 % 03/02/19 05:20 Neutrophils # [employer] ASSOCIATE 02/28/19 04:35 Neutrophils # (Manual) 39.90 k/uL (1.3-7.7) H 03/02/19 05:20 Lymphocytes # [employer] ASSOCIATE 02/28/19 04:35 Lymphocytes # (Manual) 1.82 k/uL (1.0-4.8) 03/02/19 05:20 Monocytes # [employer] ASSOCIATE 02/28/19 04:35 Monocytes # (Manual) 3.18 k/uL (0-1.0) H 03/02/19 05:20 Eosinophils # [employer] ASSOCIATE 02/28/19 04:35 Eosinophils # (Manual) 0.48 k/uL (0-0.7) 02/28/19 04:35 Basophils # [employer] ASSOCIATE 02/28/19 04:35 Metamyelocytes # (Man) 0.45 k/uL (0) H 03/02/19 05:20 Myelocytes # (Manual) 0.45 k/uL (0) H 03/02/19 05:20 Nucleated RBCs 4 /100 WBC (0-0) H 03/02/19 05:20 Differential Comment 02/27/19 12:45 Manual Slide Review Performed 03/01/19 04:30 Toxic Granulation Present 02/17/19 04:20 Toxic Vacuolation Present 02/26/19 03:30 Large Platelets Present 03/01/19 04:30 Polychromasia Present 03/02/19 05:20 Hypochromasia Marked 03/02/19 05:20 Poikilocytosis Marked 03/02/19 05:20 Anisocytosis Slight 03/02/19 05:20 Macrocytosis Moderate 03/02/19 05:20 PT 10.9 sec (9.0-12.0) 02/16/19 19:00 INR 1.0 (<1.2) 02/16/19 19:00 APTT 30.0 sec (22.0-30.0) 02/16/19 19:00 Sample Site anthon 03/02/19 05:13 ABG pH 7.16 (7.35-7.45) L* 03/02/19 05:13 ABG pCO2 47 mmHg (35-45) H 03/02/19 05:13 ABG pO2 102 mmHg (83-108) 03/02/19 05:13 ABG HCO3 17 mmol/L (21-25) L 03/02/19 05:13 ABG Total CO2 18 mmol/L (19-24) L 03/02/19 05:13 ABG O2 Saturation 96.0 % (94-97) 03/02/19 05:13 ABG Base Excess -11.7 mmol/L 03/02/19 05:13 Lyndon Test Yes 03/02/19 05:13 FiO2 60 % 03/02/19 05:13 Sodium 130 mmol/L (137-145) L 03/02/19 05:20 Potassium 5.1 mmol/L (3.5-5.1) 03/02/19 05:20 Chloride 98 mmol/L (98-107) 03/02/19 05:20 Carbon Dioxide 15 mmol/L (22-30) L 03/02/19 05:20 Anion Gap 17 mmol/L 03/02/19 05:20 BUN 68 mg/dL (9-20) H 03/02/19 05:20 Creatinine 3.29 mg/dL (0.66-1.25) H 03/02/19 05:20 Est GFR (CKD-EPI)AfAm 22 (>60 ml/min/1.73 sqM) 03/02/19 05:20 Est GFR (CKD-EPI)NonAf 19 (>60 ml/min/1.73 sqM) 03/02/19 05:20 Glucose 174 mg/dL (74-99) H 03/02/19 05:20 POC Glucose (mg/dL) 107 mg/dL (75-99) H 03/02/19 18:27 POC Glu Grounding Engineer VANESSA Amy Kasper 03/02/19 18:27 Lactic Ac Sepsis Rflx Y 02/17/19 22:57 Plasma Lactic Acid Tra 7.6 mmol/L (0.7-2.0) H* 02/18/19 04:15 Calcium 5.9 mg/dL (8.4-10.2) L* 03/02/19 05:20 Ionized Calcium Ann 2.9 mg/dL (4.5-5.3) L* 03/01/19 04:30 Phosphorus 8.7 mg/dL (2.5-4.5) H 03/02/19 05:20 Magnesium 2.3 mg/dL (1.6-2.3) 03/02/19 05:20 Total Bilirubin 10.6 mg/dL (0.2-1.3) H 03/02/19 05:20 AST 408 U/L (17-59) H 03/02/19 05:20 ALT 181 U/L (21-72) H 03/02/19 05:20 Alkaline Phosphatase 371 U/L (38-126) H 03/02/19 05:20 Creatine Kinase 59196 U/L (55-170) H* 03/02/19 05:20 Troponin I 4.250 ng/mL (0.000-0.034) H* 02/18/19 04:15 NT-Pro-B Natriuret Pep 4770 pg/mL 02/16/19 19:00 Total Protein 5.7 g/dL (6.3-8.2) L 03/02/19 05:20 Albumin 2.3 g/dL (3.5-5.0) L 03/02/19 05:20 Triglycerides 1378 mg/dL (<150) H 03/01/19 04:30 Cholesterol 290 mg/dL (<200) H 02/27/19 18:55 LDL Cholesterol, Calc mg/dL (0-99) 02/27/19 18:55 HDL Cholesterol 11 mg/dL (40-60) L 02/27/19 18:55 Amylase 368 U/L (30-110) H* 03/01/19 04:30 Lipase 485 U/L (23-300) H 03/01/19 04:30 Vitamin D 25-Hydroxy 10.9 ng/mL (30.0-100.0) L 02/20/19 04:20 Urine Color Dark Brown 02/19/19 06:10 Urine Appearance Cloudy (Clear) 02/19/19 06:10 Urine pH 5.0 (5.0-8.0) 02/19/19 06:10 Ur Specific [place] 1.019 (1.001-1.035) 02/19/19 06:10 Urine Protein 1+ (Negative) H 02/19/19 06:10 Urine Glucose (UA) 1+ (Negative) H 02/19/19 06:10 Urine Ketones 1+ (Negative) H 02/19/19 06:10 Urine Blood Moderate (Negative) H 02/19/19 06:10 Urine Nitrite Negative (Negative) 02/19/19 06:10 Urine Bilirubin Negative (Negative) 02/19/19 06:10 Urine Urobilinogen <2.0 mg/dL (<2.0) 02/19/19 06:10 Ur Leukocyte Esterase Trace (Negative) H 02/19/19 06:10 Urine RBC 1 /hpf (0-5) 02/19/19 06:10 Urine WBC 1 /hpf (0-5) 02/19/19 06:10 Random Vancomycin 19.3 ug/mL 02/20/19 04:35 Heparin-Ind Plt Ab Scrn 0.169 OD (<0.4) 02/20/19 04:35 C. difficile (EIA) Intrp Negative (Negative) 02/25/19 04:30 Hep Bs Antigen Non-Reactive (Non-Reactive) 02/19/19 05:40 Hep Bs Antibody Non-Reactive (Non-Reactive) 02/19/19 05:40 Hep Bs Antibody, Quant 3.5 mIU/mL 02/19/19 05:40 Hep B Core Total Ab Non-Reactive (Non-Reactive) 02/19/19 05:40 Influenza Type A RNA Detected (Not Detectd) H 03/02/19 18:15 Influenza Type B (PCR) Not Detected (Not Detectd) 03/02/19 18:15 Miscellaneous Test COMP/MG/PHOS 02/25/19 03:30 Misc Test Result See comment 02/25/19 03:30 Microbiology 02/27/19 17:38 Blood Blood Culture - Preliminary No Growth after 72 hours 02/27/19 12:45 Blood Blood Culture - Preliminary No Growth after 72 hours 02/23/19 10:15 Blood Blood Culture Gram Stain - Final 02/23/19 10:15 Blood Blood Culture - Final Freda albicans 02/23/19 10:15 Blood Blood Culture - Final 02/27/19 11:15 Sputum Gram Stain - Final 02/27/19 11:15 Sputum Sputum Culture - Final Freda albicans 02/27/19 10:00 Urine,Catheterized Urine Culture - Final 02/23/19 20:07 Sputum Gram Stain - Final 02/23/19 20:07 Sputum Sputum Culture - Final Freda albicans 02/16/19 19:00 Blood Blood Culture - Final No Growth after 144 hours 02/18/19 11:45 Pleural Fluid Gram Stain - Final 02/18/19 11:45 Pleural Fluid Body Fluid Culture - Final 02/17/19 12:54 Sputum Gram Stain - Final 02/17/19 12:54 Sputum Sputum Culture - Final Strep pyogenes (grp a) 02/17/19 10:00 Urine,Catheterized Urine Culture - Final Assessment and Plan (1) Influenza A Current Visit: Yes Status: Acute Code(s): J10.1 - FLU DUE TO OTH IDENT INFLUENZA VIRUS W OTH RESP MANIFEST SNOMED Code(s): 646341304 (2) Pneumonia and influenza Narrative/Plan: 63-year-old male who is a history of underlying cardiovascular disease and has been medically disabled presents to Hospital with a relatively short history of influenza A. The patient has the rapid onset of progressive shortness of breath and has now developed respiratory failure, acute lung injury with acute renal failure. Pulmonary critical care is having difficulties of adequate oxygenation and the patient has poor urinary output. His and seen by nephrology and they're contemplating Sled therapy if his hypotension can be further managed. Influenza A is associated with aggressive pneumonia staph aureus and Streptococcus pyogenes given associated with severe necrotizing pneumonia directly links to the influenza infection. We'll continue the active treatment of the influenza with the Tamiflu. Antibiotic therapy with vancomycin and Levaquin has been utilized pending further data. Of note if the patient has been seen the laboratory relates that showed Streptococcus pyogenes has been isolated in the respiratory secretions. Concern this is a super antigen type strain and constantly antibiotic therapy is altered to ceftriaxone ( with penicillin ALLERGY) and clindamycin was added to attempt to reduce toxin production. Overall prognosis is very poor. 02/19/2019 the patient has now had some measurable improvement. When the PEEP was increased to 16 the patient started fractionate much better and is now had further improvement of several of his parameters including improved hypotension. However has acute renal failure and the case has been discussed with medical care and nephrology. IV access for dialysis is to be placed and hopefully will be over start dialysis soon. As patient is more hemodynamically stable. The antimicrobial therapy with Rocephin and clindamycin are being utilizes point in time. Patient likely has a super antigen strain of strep resulting in the current profound level of illness. 02/20/2019 patient remains profoundly ill with multisystem organ failure however with the new chest tube there is been some improvement of his respiratory status. He is receiving renal replacement therapy and remains on vasopressor therapy. The pneumonia from influenza and super infection with Streptococcus pyogenses is occurring and is on antiviral and antibiotic therapy. For now supportive care is continuing prognosis remains very poor 02/22/2019 patient's status remains intubated, sedated chemically ventilated and vasopressor therapy. Leukocytosis is stable and from a combination of the significant influenza, necrotizing Streptococcus pyogenes pneumonia and hydrocortisone therapy. The thrombocytopenia has improved from 24-42, likely relating to some improvement of his sepsis with renal replacement therapy the regimen is down to 5.97, and related that it was well-tolerated today. Antibiotic therapy continues with high-dose Rocephin and clindamycin for the isolated pathogens. Tamiflu continues given the profound respiratory failure originally from influenza A. 02/23/2019 patient remains intubated sedated and mechanically ventilated requiring vasopressor therapy. Over there are some improvements in the last day that the amount of PEEP requirement has gone down, vasopressor therapy is stable and tolerating dialysis without increased amounts of vasopressor. Is having much more effective dialysis session today. Patient remains profoundly ill continues to have leukocytosis but the thrombocytopenia is improving the treat ment of uremia and underlying sepsis. Is on the Tamiflu and antibiotic therapy with Rocephin and clindamycin continue no new positive cultures. Prognosis remains poor. 02/24/2019 patient remains with multisystem organ failure, with multiple sessions of hemodialysis there has been some slight improvement in his pulmonary status. Remains on vasopressor therapy Patient is now developing increasing leukocytosis. Etiology is not entirely clear however he is receiving stress doses of hydrocortisone which may be driving the leukocytosis. Other concerns include worsening sepsis or develop of underlying organ ischemia. The patient is on clindamycin therapy and if develops diarrhea will need to be concerned about the possibility of C. diff colitis also. Prognosis remains poor. 02/26/2019 patient remains in intensive care unit intubated sedated and mechanically ventilated. Did have a brief period without fever but again has had a temperature as high as 103.8 Fahrenheit. Currently improved and on the cooling blanket. Patient has evidence of increased total bilirubin and liver function tests were markedly elevated evidence of shock liver in addition to the acute renal failure with ATN. Remains on vasopressor therapy and has the respiratory failure. The patient now has progression of the ischemic changes to the fingertips and toes is worse in the last day. Prognosis is very poor this is related to family member. 03/01/2019 is noted patient had ongoing fever and follow-up cultures have been performed and now there is evidence of 1 blood culture that is evidence of yeast which will be Freda albicans based on the recent sputum culture. Follow blood cultures have been requested. Eraxis is been initiated. If the patient has any further positive blood cultures within need to have hemodialysis catheter removed and exchanged. Would also need to have his troponin catheter exchange. This is been discussed with the critical care and would not initiate total parenteral nutrition at this point in time given the current fungemia. The patient's family is informed of the current status. There are informed that infection is not Freda auris. 03/02/2019 patient with little change except there has not been improvement of fever with the addition of the Eraxis. He felt blood culture is negative so far. Given the patient's instability goals to try to save the current multiple catheters especially if there will be contemplation of comfort care measures soon The patient's influenza testing remains positive and Tamiflu should continue. Isolation continues. Prognosis is very poor. Briefly discussed current status with the family, the fever has improved with the addition of antifungal therapy but he is still profoundly ill. Current Visit: Yes Status: Acute Code(s): J11.00 - FLU DUE TO UNIDENTIFIED FLU VIRUS W UNSP TYPE OF PNEUMONIA SNOMED Code(s): 436645288 (3) Acute renal failure Current Visit: Yes Status: Acute Code(s): N17.9 - ACUTE KIDNEY FAILURE, UNSPECIFIED SNOMED Code(s): 35575802
[2019-03-02] MEDS ORDERED: OSELTAMIVIR 60 MG/10 ML ORAL SYRINGE PO SCH (23:00)
[2019-03-02 23:46] LABS: Glucose,Whole Blood 135 mg/dL (75-99)
[2019-03-03] MEDS: CLINDAMYCIN 600 MG in DEXTROSE 5% IN WATER 50 ML IVPB SCH ×2 (00:10)
[2019-03-03] MEDS: INSULIN ASPART (NovoLOG) 100 UNIT/ML VIAL SQ SCH ×2 (00:10→07:03)
[2019-03-03] MEDS: IPRATROPIUM-ALBUTEROL 3 ML NEB INHALATION SCH ×3 (03:10→11:15)
[2019-03-03] MEDS: NOREPINEPHRINE 32 MG in SODIUM CHLORIDE 0.9% 218 ML IV SCH (03:41)
[2019-03-03] MEDS: HYDROCORTISONE SUCCINATE 100 MG/2 ML VIAL IV SCH (03:56)
[2019-03-03 04:36] LABS: ABG Base Excess -6.5 mmol/L; ABG HCO3 20 mmol/L (21-25); ABG Oxygen Saturation 99.2 % (94-97); ABG PCO2 43 mmHg (35-45); ABG PH 7.29 (7.35-7.45); ABG PO2 166 mmHg (83-108); ABG TCO2 22 mmol/L (19-24)
[2019-03-03 05:59] LABS: Albumin 2.4 g/dL (3.5-5.0); Magnesium 2.3 mg/dL (1.6-2.3); Phosphorus 5.9 mg/dL (2.5-4.5); Potassium 4.2 mmol/L (3.5-5.1); Total Protein 5.5 g/dL (6.3-8.2)
[2019-03-03 06:00] LABS: Anisocytosis Slight; Hypochromasia Slight; MCH 34.9 pg (25.0-35.0); MCHC 34.6 g/dL (31.0-37.0); Macrocytosis Slight; Mean Platelet Volume 9.7; Platelet Count 201 k/uL (150-450); Poikilocytosis Moderate; RBC 1.85 m/uL (4.30-5.90); RDW 18.4 % (11.5-15.5)
[2019-03-03 06:03] LABS: HCT 18.7 % (39.0-53.0); HGB 6.5 gm/dL (13.0-17.5)
[2019-03-03 06:25] LABS: Calcium 6.1 mg/dL (8.4-10.2)
[2019-03-03] MEDS: MIDAZOLAM HCL 50 MG in SODIUM CHLORIDE 0.9% 40 ML IV SCH (07:05)
[2019-03-03 07:10] LABS: Glucose,Whole Blood 134 mg/dL (75-99)
--- NOTE | 2019-03-03 09:04 | XR ---
EXAMINATION TYPE: XR chest 1V portable DATE OF EXAM: 03/03/2019 COMPARISON: 03/02/2019 HISTORY: Chest tube insertion TECHNIQUE: Single frontal view of the chest is obtained. FINDINGS: There is a stable left-sided pneumothorax measuring approximately 10-15%. Left-sided conso lidation noted. Tiny effusion seen. ET and NG tube and central line stable. NG tube extends the level the GE junction and could be advanced. Subsegmental changes and tiny right effusion also suspected. IMPRESSION: 1. Left-sided pneumothorax appears stable from the prior exam measuring approximately 15%. 2. Stable consolidation and small effusion bilaterally.
[2019-03-03 09:47] VITALS: TEMP 100.2
[2019-03-03 10:53] VITALS: BMI 34.6
[2019-03-03 11:46] LABS: Glucose,Whole Blood 97 mg/dL (75-99)
[2019-03-03 12:35] VITALS: BP 142/58
[2019-03-03] MEDS ORDERED: ATROPINE OPHTH SOLN 1% 5ML BTL SUBLINGUAL PRN (12:39)
[2019-03-03] MEDS ORDERED: MORPHINE SULFATE 4 MG/ML SYRINGE IV PRN (12:39)
[2019-03-03] MEDS ORDERED: SCOPOLAMINE 1.5MG/72HR PATCH TRANSDERM SCH (12:45)
[2019-03-03] MEDS ORDERED: MORPHINE SULFATE (100 MG/2 ML) 100 MG in SODIUM CHLORIDE 0.9% 100 ML IV SCH (12:45)
[2019-03-03] MEDS: CALCIUM GLUCONATE 1 GM in SODIUM CHLORIDE 0.9% 100 ML IVPB SCH (12:48)
[2019-03-03] MEDS: SODIUM CHLORIDE 0.9% 50 ML with VASOPRESSIN 20 UNIT IVPB SCH ×2 (12:49)
--- NOTE | 2019-03-03 13:38 | P.PN ---
Subjective Progress Note Date: 03/03/19 53-year-old male patient was being seen in the intensive care unit for respiratory failure, pneumonia, sepsis, multisystem organ failure. The patient was admitted on 02/16/2019. This morning the patient is sedated with Diprivan and is calm and comfortable and Diprivan is running at 60 g per KG per minute. He remains intubated on a mechanical ventilator. I noted that the patient was quite uncomfortable while being on a mechanical ventilator. He was double stacking and was breathing fast and he was having persistent amount of air leak in the Pleur-evac. Based on this, I made adjustments, and switch this patient to a VC mode with a tidal volume of 500, respiratory rate of 25, I time of 1.1 and this is a VC plus molds. I kept FiO2 at 50%. Awaiting subsequent blood gases. Nevertheless, with these changes, the patient is much more comfortable and synchronous with the mechanical ventilator. We don't have to given additional sedation such as Dilaudid or fentanyl. Meanwhile, the patient still has a left-sided chest tube. There is obvious air leak and the left-sided chest tube. Amount of fluid and urinating over the past 24 hours is minimal at this point in time. Chest x-ray shows bilateral pulmonary infiltrates and left-sided chest tube in place and there is no evidence of any sizable pneumothorax. Hemodynamically, the patient is on IV fluids currently running at 28 an hour. The patient is also on pressors and norepinephrine infusion is running at 10 g per minute. The patient is on dialysis. His last round of the analysis was done on 02/25/2019 where a total of 1.5 L of fluid was removed. He is about to have another session of dialysis today. He is dialysis catheter is inserted in his left femoral vein. He has an EF around 6065% and this was done in time of admission. In terms of his infection, the patient is still spiking temperature with a T-max of 101.3. His current temperatures 100.8. I noted ongoing rise in his white count and obviously there is a concern for reinfection. History volume a Right IJ seems to be quite clean and intact. He also has a femoral dialysis catheter. His skin is swollen and there is some areas of blistering and vesical formation due to fluid overload on multiple locations been no evidence of any cellulitis. He has cyanotic digits in his feet bilaterally and his right hand fingers and these are mainly related to the utilization of high dose of pressors at time of his septic shock. He is current antibiotic coverage including a combination of Rocephin and clindamycin per IDs recommendation. He is taking Nepro at the rate of 20 mL an hour. His most recent sputum Gram stain and culture showed Freda and strep pyogenous. On today's evaluation of 02/28/2019, the patient is doing poorly. The patient was found to have significant toxicity from Diprivan. The serum triglyceride was higher than 3500 and at that point the Diprivan was discontinued and the patient was started on Versed drip which is currently running at 12 mg an hour. The patient remains on a medical ventilator. He has think is on a mechanical ventilator however his having excess amount of leak from the chest tube and from opening from previous chest tube insertion. He is losing approximately 150 mL of volume as noted in the mechanical ventilator. He remains on assist control mode at the rate of 25, I time of 1.1, tidal volume of 500 and FiO2 has been increased up to 80% as the patient was having some issues with oxygenation overn ight. The morning blood gases showed a pH of 7.1 with a pCO2 of 59 and pO2 of 9600% FiO2. Chest x-ray from today shows a little bit of a left-sided pneumothorax which is increased in size compared to the yesterday's film and is currently at 15%. ET tube is in a good location. There is better pleural effusion consistent with CHF. Hemodynamically, the patient remains hypotensive and the patient is still requiring pressors initially at 20 mics and currently is up to 30 mics for blood pressure maintenance. His cardiac rhythm is sinus. He is showing ongoing signs of septicemia. His febrile. His white cell count is at 47. We have sent new blood cultures from the dialysis catheter and the triple-lumen catheter and the patient also has had sputum and blood and urine cultures. The results are still pending for now and there is no new cultures available at this point in time. Infectious disease on the case and the patient has been kept on a combination of clindamycin and Rocephin. The patient is not producing any urine output. He underwent hemodialysis yesterday where 2 L of fluid was also removed during the dialysis process. His creatinine is up to 2.9. Potassium level improved is down to 4.9. LFTs remain abnormal consistent with shock liver. Calcium level is low with an ionized calcium level of 3.7 the calcium was replaced. This morning we noted that the patient is having some abdominal distention. Tube feeds was stopped and the residual is quite high mortality thousand. This was placed to suctioning and currently the patient is nothing by mouth for now. The follow-up CPK level is pending from today. Meanwhile, the patient continues to have extensive digital necrosis and 3 of the extremities mainly the feet and the left upper extremity. A 9 is still func tional for now. on 03/01/2019 I'm seeing this patient for a follow-up. I already had a lengthy discussion with the yesterday evening and updated on the condition. The same was done this morning. The patient remains sedated on Versed and the Versed infusion is running at 10 mg an hour. This which was done and the patient had a very high triglyceride level that was attributed to propofol i nfusion. Once infusion was discontinued the follow-up triglyceride level came down to 1300. The amylase and lipase were noted to be slightly elevated and the patient has already developed difficulties in tolerating his she'll feeds and based on that the tube feeds are still on hold. Another attempt to feed this patient failed as the patient was having very high residuals. In any rate, the patient's tube feeds on hold. The liver function tests are gradually improving as the patient is recovering from his shock liver. Note that the bilirubin level is still elevated at 7.6 with an AST of 537 and ALT of 180 with an alkaline phosphatase of 394. In terms of his pulmonary status, the patient is a mechanical ventilator. The patient is on a assist-control mode with a tidal volume of 550, FiO2 at 70%, rate of 25 this morning and I time of 1.1 with a PEEP of 5. Chest x-ray showed a 15-20% pneumothorax on the left and the chest tube is in a good location and there is continuous air leak noted in the chest tube. 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 The patient had a follow-up blood gases this morning that showed respiratory acidosis. His pH is 7.17 with a pCO2 of 56 and pO2 of 84. He is losing volume because of his persistent air leak and this is estimated to be in the order of 100 mL based on the return tidal volumes. Peak air pressure is not elevated. The patient is not having any significant orotracheal secretions. Repeat cultures have been negative with exception of Freda albicans in the sputum. Dr. Shipley from infectious disease on the case. The patient has been kept on a combination of IV Rocephin 2 g every 24 hours and clindamycin. Note that the only positive culture was a strep and adjusted was cultured originally from this patient. White cell count remains elevated at 47,000. The patient has a right IJ triple-lumen catheter. The patient alsohas a hemodialysis catheter in his left femoral vein. He underwent another session of hemodialysis today. During the dialysis 2 L of IV fluid was removed. Nevertheless he did de velop some hypotension and the pressors have been modified to meet his blood pressure requirements. I have made recommendations to start this patient on vasopressin to optimize hemodynamics and gradually reduced a present dose of possible. He is still tapping on and off. He had a T-max of 102.5. His CPK level is on the decline. He continues to have necrotic digits in the lower extremities in the feet and the left upper extremity. He is doing poorly. The family is updated on his condition. Unfortunately, he has not had any major improvement over the past several days and this has been discussed again with the family. Daughter is also in the bedside. On 03/02/2019 I'm seeing this patient for a follow-up. He remains intubated on a mechanical ventilator. The vent setting currently is at a tidal volume of 550, FiO2 of 70%, PEEP of 5 and a respiratory rate of 32. Chest x-ray is s howing a persistent pneumothorax in the left apex and evidence of bibasilar infiltrates and the lines of the chest tubes are all in place. ET tube also is in a good location. He still having excess amount of air leaks and the 2 of the chest tubes were placed. Note that I had another chest tube yesterday on this patient based on his ongoing air leak and worsening pneumothorax. The pneumothorax on the left is around 30% and is stable compared to previous evaluations. Blood gases from this morning shows a pH of 7.16 with a pCO2 of 47 and pO2 of 102. His hemodynamics is essentially unchanged. He still requiring high-dose pressors including norepinephrine. He is also vasopressin. Uche hayes ell count is elevated at 47. The patient was found to have yeast in his blood culture that was collected on 02/23/2019. He was started on Eraxis. No urine output. Renal failure is still an ongoing issue and the patient underwent hemodialysis yesterday with 2 L of fluid being removed. His potassium level is at 5.1. Serum bicarb is at 15. LFTs are abnormal and bilirubin is on the rise up to 8.7 as the patient is looking more jaundice. Nevertheless, the rest of the LFTs are declining. The patient remains nothing by mouth for now. TPN was not initiated yet. He has a triple lumen cath in his right IJ and another dialysis catheter in his left femoral vein. The catheters will be kept in place pending further ulcers and will consider removing the dialysis catheter and replacing it in addition to the triple-lumen catheter of the patient continues to have persistent fungemia. Overall, the patient remains sedated on Versed., Comfortable sedated with the mechanical ventilator. He is obviously third spacing and has extensive multiple of edema in all 4 extremities, abdominal wall and scrotum. Family is updated on his condition On 03/03/2019, the patient is doing very poor. Remains intubated on a mechanical ventilator. Continues to be on high-dose pressors. Continues to have persistent air leak and the right-sided chest tube. Leukocytosis remains unchanged. The patient is still spiking low-grade fever. The patient remains on Eraxis as broad-spectrum antibiotic coverage. Flu was again cultured and the sputum and Tamiflu was restarted. Meanwhile, the patient remains sedated with Versed and is calm and comfortable. He is on a assist-control mode of ventilation with a tidal volume of 550 with an FiO2 of 70% and a PEEP of 5 and a respiratory rate of 32. The patient continues to have significant amount of air leak and his minute ventilation is estimated to be around 8 L per minute. The patient has to chest tubes in the left lung. The chest x-ray remains unchanged and there is a stable pneumothorax on the left. Her blood gases from today showed a pH of 7.29 with a pCO2 of 43 and pO2 166 and this was on FiO2 of 60%. Earlier this morning his white cell count was at 45. Hematoma dropped down to 6.7 the patient will be given a unit of packed RBC. In addition, the patient is going to undergo hemodialysis today. He has extensive third spacing, edema, n ecrosis of the digits in the left upper extremity the toes laterally. He is nothing by mouth as the patient has been having elevated gastric residuals. TPN to be initiated today. Bilirubin is elevated. LFTs are normal as part of his multisystem organ failure. No urine output. No major improvement in his condition Objective - Vital Signs Vital signs: Vital Signs Temp 100.2 F H 03/03/19 12:00 Pulse 94 03/03/19 12:00 Resp 32 H 03/03/19 12:00 BP 142/58 03/03/19 10:24 Pulse Ox 100 03/03/19 12:00 Intake & Output 03/02/19 03/03/19 03/03/19 18:59 06:59 18:59 Intake Total 620.417 827.252 448 Output Total 2060 500 2000 Balance -1439.583 327.252 -1552 Weight 112.6 kg 112.6 kg Intake: IV 526 426 138 Anidulafungin 100 mg In 100 Sodium Chloride 0.9% 100 ml @ 84 mls/hr IVPB DAILY NI Rx#:[id number] Calcium Gluconate 2 gm In 100 100 Sodium Chloride 0.9% 100 ml @ 60 mls/hr IVPB ONCE ONE Rx#:[id number] Clindamycin 600 mg In 50 Dextrose 5% in Water 50 ml @ 50 mls/hr IVPB Q8HR NI Rx#:[id number] Sodium Chloride 0.9% 1, 240 240 120 000 ml @ 20 mls/hr IV . Q24H NI Rx#:[id number] cefTRIAXone 2 gm In 50 Sodium Chloride 0.9% 50 ml @ 100 mls/hr IVPB Q24H NI Rx#:[id number] pressure bags 36 36 18 Intake, IV Titration 94.417 401.252 Amount Midazolam HCl 50 mg In 94.417 50.000 Sodium Chloride 0.9% 40 ml @ 5 MG/HR 5 mls/hr IV .Q10H NI Rx#:[id number] Norepinephrine 32 mg In 351.252 Sodium Chloride 0.9% 218 ml @ 0.05 MCG/KG/MIN 2. 233 mls/hr IV .Q24H NI Rx#:[id number] Blood Product 310 Rc As-1 Unit 310 [id number] Output: Chest Tube Drainage 40 200 Chest Tube Left 30 60 left chest tube 10 140 Urine 20 0 0 Emesis 300 Other 1999 1999 Other: Voiding Method Indwelling Catheter Indwelling Catheter Indwelling Catheter ABP, PAP, CO, CI - Last Documented Arterial Blood Pressure 129/46 - Exam Gen. appearance the patient has single-vessel a mechanical ventilator. Calm and comfortable and sedated. Orogastric and orotracheal tube are both in place. Head exam was generally normal. There was no scleral icterus or corneal arcus. Mucous membranes were moist. Neck was supple and without jugular venous distension, thyromegaly, or carotid bruits. Carotids were easily palpable bilaterally. There was no adenopathy. The patient has a right IJ triple-lumen catheter in place. Lungs sounds are diminished bilaterally and there is scattered rhonchi heard throughout the lung garsia bilaterally. There is a left-sided chest tubes in place with ongoing air leak. The patient has to chest tubes on the left next to each other on both of showing significant amount of air leaks. Cardiac exam revealed the PMI to be normally situated and sized. The rhythm was regular and no extrasystoles were noted during several minutes of auscultation. The first and second heart sounds were normal and physiologic splitting of the second heart sound was noted. There were no murmurs, rubs, clicks, or gallops.the patient has a chest tube in his left hemithorax. The chest tube is leaking air constantly. The stoma from the previous chest tube insertion is also leaking air. No subcu emphysema this point in time. Abdominal exam revealed normal bowel sounds. The abdomen was soft, non-tender, and without masses, organomegaly, or appreciable enlargement of the abdominal aorta. Extremities revealed cyanotic digits mainly involving the toes bilaterally and the fingers of the right hand. The left lower extremity and the foot is quite cold. There is positive Doppler signal. Right lower extremity is warm and pulses can be palpated. The right radial pulse is weak. Left radial pulse is present and the patient has a Artline catheter in place. There is also areas of skin excoriation over the right upper extremity at the site of a radial art line insertion. No clear-cut areas of cellulitis. Vesical formation due to fluid overload. The patient has signs signs of third spacing and edema throughout his body, upper and lower extremities and abdominal wall. Skin as mentioned above.the patient is having extensive third spacing and edema in lower extremities. There is some areas of vesicle formation blisters. No open wounds for now. The skin is weeping due to his fluid overload. Neurologically the patient sedated and calm and comfortable. No seizure activity. Pupils equal and symmetric to light. The patient remains on a Versed drip for now for sedation. - Labs CBC & Chem 7: 03/03/19 05:00 03/03/19 05:00 Labs: Abnormal Lab Results - Last 24 Hours (Table) 03/02/19 03/02/19 03/02/19 Range/Units 05:20 13:30 18:15 WBC (3.8-10.6) k/uL RBC (4.30-5.90) m/uL Hgb (13.0-17.5) gm/dL Hct (39.0-53.0) % MCV (80.0-100.0) fL RDW (11.5-15.5) % ABG pH (7.35-7.45) ABG pO2 (83-108) mmHg ABG HCO3 (21-25) mmol/L ABG O2 Saturation (94-97) % Sodium (137-145) mmol/L Carbon Dioxide (22-30) mmol/L BUN (9-20) mg/dL Creatinine (0.66-1.25) mg/dL Glucose (74-99) mg/dL POC Glucose (mg/dL) 148 H (75-99) mg/dL Calcium (8.4-10.2) mg/dL Phosphorus (2.5-4.5) mg/dL Total Bilirubin (0.2-1.3) mg/dL AST (17-59) U/L ALT (21-72) U/L Alkaline Phosphatase (38-126) U/L Creatine Kinase 99787 H* (55-170) U/L Total Protein (6.3-8.2) g/dL Albumin (3.5-5.0) g/dL Influenza Type A RNA Detected H (Not Detectd) Crossmatch 03/02/19 03/02/19 03/03/19 Range/Units 18:27 23:34 04:34 WBC (3.8-10.6) k/uL RBC (4.30-5.90) m/uL Hgb (13.0-17.5) gm/dL Hct (39.0-53.0) % MCV (80.0-100.0) fL RDW (11.5-15.5) % ABG pH 7.29 L (7.35-7.45) ABG pO2 166 H (83-108) mmHg ABG HCO3 20 L (21-25) mmol/L ABG O2 Saturation 99.2 H (94-97) % Sodium (137-145) mmol/L Carbon Dioxide (22-30) mmol/L BUN (9-20) mg/dL Creatinine (0.66-1.25) mg/dL Glucose (74-99) mg/dL POC Glucose (mg/dL) 107 H 135 H (75-99) mg/dL Calcium (8.4-10.2) mg/dL Phosphorus (2.5-4.5) mg/dL Total Bilirubin (0.2-1.3) mg/dL AST (17-59) U/L ALT (21-72) U/L Alkaline Phosphatase (38-126) U/L Creatine Kinase (55-170) U/L Total Protein (6.3-8.2) g/dL Albumin (3.5-5.0) g/dL Influenza Type A RNA (Not Detectd) Crossmatch 03/03/19 03/03/19 03/03/19 Range/Units 05:00 05:00 06:45 WBC 45.0 H (3.8-10.6) k/uL RBC 1.85 L (4.30-5.90) m/uL Hgb 6.5 L* (13.0-17.5) gm/dL Hct 18.7 L* (39.0-53.0) % MCV 101.0 H (80.0-100.0) fL RDW 18.4 H (11.5-15.5) % ABG pH (7.35-7.45) ABG pO2 (83-108) mmHg ABG HCO3 (21-25) mmol/L ABG O2 Saturation (94-97) % Sodium 132 L (137-145) mmol/L Carbon Dioxide 19 L (22-30) mmol/L BUN 63 H (9-20) mg/dL Creatinine 2.86 H (0.66-1.25) mg/dL Glucose 115 H (74-99) mg/dL POC Glucose (mg/dL) (75-99) mg/dL Calcium 6.1 L* (8.4-10.2) mg/dL Phosphorus 5.9 H (2.5-4.5) mg/dL Total Bilirubin 11.0 H (0.2-1.3) mg/dL AST 364 H (17-59) U/L ALT 160 H (21-72) U/L Alkaline Phosphatase 338 H (38-126) U/L Creatine Kinase 95008 H* (55-170) U/L Total Protein 5.5 L (6.3-8.2) g/dL Albumin 2.4 L (3.5-5.0) g/dL Influenza Type A RNA (Not Detectd) Crossmatch See Detail 03/03/19 Range/Units 06:45 WBC (3.8-10.6) k/uL RBC (4.30-5.90) m/uL Hgb (13.0-17.5) gm/dL Hct (39.0-53.0) % MCV (80.0-100.0) fL RDW (11.5-15.5) % ABG pH (7.35-7.45) ABG pO2 (83-108) mmHg ABG HCO3 (21-25) mmol/L ABG O2 Saturation (94-97) % Sodium (137-145) mmol/L Carbon Dioxide (22-30) mmol/L BUN (9-20) mg/dL Creatinine (0.66-1.25) mg/dL Glucose (74-99) mg/dL POC Glucose (mg/dL) 134 H (75-99) mg/dL Calcium (8.4-10.2) mg/dL Phosphorus (2.5-4.5) mg/dL Total Bilirubin (0.2-1.3) mg/dL AST (17-59) U/L ALT (21-72) U/L Alkaline Phosphatase (38-126) U/L Creatine Kinase (55-170) U/L Total Protein (6.3-8.2) g/dL Albumin (3.5-5.0) g/dL Influenza Type A RNA (Not Detectd) Crossmatch Microbiology - Last 24 Hours (Table) 02/27/19 17:38 Blood Culture - Preliminary Blood No Growth after 72 hours 02/27/19 12:45 Blood Culture - Preliminary Blood No Growth after 72 hours 02/23/19 10:15 Blood Culture Gram Stain - Final Blood Blood Culture - Final Freda albicans Assessment and Plan Plan: Assessment 1 acute hypoxic respiratory failure secondary to pneumonia. The patient had ini tially an influenza infection treated and subsequently presented with a strep pyogenes pneumonia and sepsis and multisystem organ failure and was still on a combination of Rocephin and clindamycin. The patient remains intubated on a mechanical ventilator. The patient continues to have a 30% pneumothorax on the left. He has persistent air leak and the chest is of inserted into the left lung to assist with the air leak and keep the lung expanded. On today's follow- up chest exit the findings are essentially stable and the blood gases shows adequate oxygenation and some improvement of ventilation. Nevertheless, there is still persistent in the despite insertion of the chest tubes the patient continues to have a ongoing pneumothorax. Sputum is consistent with Freda albicans. 2 acute hypoxic respiratory failure currently intubated on a mechanical ventilator the blood gases continues to show evidence of metabolic and respiratory acidosis. 3 acute tension pneumothorax involving the left lung post chest tube insertion, and the patient continues to have excess amount of air leak within the left- sided chest tubes 4 Systemic Fungemia with freda albicans . The patient remains in acute septic shock secondary to above with multisystem organ failure, and the patient was started on Eraxis. 5 acute kidney injury with subsequent dialysis-dependent renal failure. 6 profound shock and hypotension with development of ischemic toes and fingers secondary to high pressor use. The patient has necrotic digits in the toes bilaterally and the right hand 7 coronary artery disease with previous coronary intervention and stenting 8 rhabdomyolysis, recovering as the patient's CPK level remains elevated. This is most likely secondary to profound hypotension and muscle necrosis. 9 profound metabolic acidosis, improved, the patient's acidosis is essentially respiratory a component of metabolic acidosis and addition. 10 fluid overload secondary to aggressive fluid resuscitation 11 hyperlipidemia with significant hypertriglyceridemia 12 hypertension, history of 13 history of peripheral neuropathy 14 ongoing fever with leukocytosis, secondary to systemic fungemia 15 hyponatremia, recovered 16 rhabdomyolysis secondary to ischemic necrotic digits. 17 triglyceridemia related to propofol infusion for extended period of time. 18 shock liver, improving, the patient has hyperbilirubinemia 19 increased gastric residuals and currently the patient is nothing by mouth 20 hyperbilirubinemia. Plan Continue is supportive care. We'll have a meeting with the family today. There is a plan to consider comfort care on this patient. I think his chance of recovery is extremely low based on shock and multisystem organ failure. The family is considering to proceed with comfort care measures today. This may be implemented following my meeting with them. This would likely end up in a mortality. We'll follow. Critically care evaluation that was done and more th an 30 minutes. Time with Patient: Greater than 30
[2019-03-03 14:13] VITALS: PULSE 103; RESP 36
--- NOTE | 2019-03-03 15:52 | PN ---
PROGRESS NOTE DATE OF SERVICE: 03/03/2019 This 63-year-old gentleman who was admitted with acute influenza had multiple complications, including pneumonia, multi-organ failure, including renal failure, and he is on hemodialysis also. The patient had severe hypotension. Patient is on significant pressors. Patient also had fungal sepsis and fungemia. The patient is on anti-fungal medications. Freda albicans was grown from the sputum as well as blood also. Past medical history reviewed. Review of systems could not be taken; patient is mechanically ventilated and sedated. CURRENT MEDICATIONS: Reviewed. They include: 1. Anidulafungin. 2. Calcium carbonate. 3. Peridex. 4. Antibiotics. PHYSICAL EXAMINATION: Patient is mechanically ventilated and sedated. Pulse 106, blood pressure 100/47, respiration 36, temperature normal, pulse ox 98% on 60% FiO2. HEENT: Conjunctivae normal. Oral mucosa moist. NECK: No jugular venous distention. No carotid bruit. No lymph node enlargement. CARDIOVASCULAR SYSTEM: S1, S2 muffled. RESPIRATORY SYSTEM: Breath sounds diminished at the bases. A few scattered rhonchi and crackles. Expiratory wheezing also present. ABDOMEN: Soft, obese, non-tender. LEGS: No edema. No swelling. NERVOUS SYSTEM: Higher functions as mentioned earlier. The patient is mechanically ventilated and sedated. EXAMINATION OF SKIN: Significant necrotic changes and ischemic changes in the extremities present. LAB INVESTIGATIONS: WBC 45, hemoglobin 6.5, sodium 132, calcium 6.1, creatine kinase 22,110. Bilirubin is 11. ASSESSMENT: 1. Acute influenza A complicated by severe pneumonia as well as severe sepsis with hypotension and septic shock and acute hypoxic respiratory failure with acute respiratory distress syndrome, on mechanical ventilation. 2. Possible cavitary pneumonia with a cystic lesion on the left side with recurrent pneumothorax, status post Thoravent and chest tubes x4. 3. Yeast and freda from the blood and fungemia with fungal sepsis. 4. Multi-organ failure. 5. Acute rhabdomyolysis. 6. Increased white count, possibly secondary to sepsis and leukemoid reaction. 7. Acute renal failure, acute tubular necrosis, possibly secondary to sepsis, on hemodialysis. 8. Anemia, microcytic. 9. Hyponatremia. 10.Hyperkalemia secondary to renal failure. 11.Elevated bilirubin, AST, ALT, acute hepatitis, possibly secondary to sepsis and acute hepatic failure. 12.History of coronary artery disease and stent. 13.History of congestive heart failure with chronic systolic dysfunction, ejection fraction 50% to 60%. 14.Lactic acidosis. 15.Acute kidney injury. 16.Hypotension. 17.Hyperlipidemia. 18.History of nicotine dependence. 19.Obesity with body mass index of 36.7. 20.NO CODE, NO CPR, NO VENT. RECOMMENDATIONS AND DISCUSSION: I recommend to continue current medications, continue with the monitoring, symptomatic treatment. Continue with the antibiotics. Prognosis is extremely guarded. Continue with antifungals. Closely follow with multiple consultants, including Dr. Wilson, Infectious Disease and also Nephrology. Dr. Wilson will also be talking to the family about comfort measures because of extremely guarded prognosis and multiple complications, as listed above. MMODL / IJN: [id number] / [id number]
--- NOTE | 2019-03-03 18:35 | PN ---
PROGRESS NOTE Patient is seen on hemodialysis. General condition is about the same. We are planning for about 2 liters of ultrafiltration. Family has been talked to regarding poor prognosis with multi-organ failure, and there is plan for proceeding with comfort care measures, possibly today. On examination this morning, patient was seen on dialysis. He remains on the vent with [address] Patient is sedated. He is maintained on the vent. FiO2 is at 60%. Bilateral breath sounds are heard. ABDOMEN: Soft. Examination of lower extremities shows edema 2+ bilaterally with significant discoloration of the toes bilaterally. ANALYTICS LEADER exam cannot be performed. Labs show hemoglobin 6.5 g/dL today, sodium 132, potassium 4.2, BUN 63, serum creatinine 2.86, phosphorus 6.1. ASSESSMENT: 1. Acute kidney injury, hemodialysis-dependent, seen on hemodialysis today. 2. Acute hypoxic respiratory failure. 3. Left pneumothorax with chest tubes. 4. Hyperkalemia associated with rhabdomyolysis and tissue necrosis. 5. Anemia with no obvious gastrointestinal bleed. 6. Hypocalcemia associated with nutritional vitamin D deficiency and renal failure. PLAN: Agree with proceeding with change in code status and possible comfort care measures. Overall prognosis is poor. MMODL / IJN: [id number] /
--- NOTE | 2019-03-04 07:21 | DS ---
DISCHARGE SUMMARY SUMMARY: DATE OF SERVICE: 03/03/2019 FINAL CAUSE OF : Influenza A. OTHER DIAGNOSES: 1. Acute Influenza A with complicated severe pneumonias as well as severe sepsis with hypotension, septic shock and as well as acute hypoxic respiratory failure with ARDS on mechanical ventilation. 2. Possible cavitary pneumonia with cystic lesion on the left side with recurrent pneumothorax, status post Thoravent and chest tube x4. 3. Yeast and Freda from the blood and fungemia with fungal sepsis. 4. Multiorgan failure. 5. Acute rhabdomyolysis. 6. Increased WBC possibly secondary to sepsis, leukemoid reaction. 7. Acute renal failure with acute tubular necrosis, possibly secondary to sepsis, on hemodialysis. 8. Anemia, microcytic. 9. Hyponatremia. 10.Hyperkalemia secondary to renal failure. 11.Elevated bilirubin, AST, ALT, acute hepatitis possibly secondary to sepsis and acute hepatic failure. 12.History of coronary artery disease/ stent. 13.History of congestive heart failure with chronic diastolic dysfunction ejection fraction 50-60%. 14.Lactic acidosis. 15.Acute kidney injury. 16.Hypotension. 17.Hyperlipidemia. 18.History of nicotine dependence. 19.Obesity with body mass index of 36.7. 20.NO CODE, NO CPR, NO VENT. HISTORY OF PRESENT ILLNESS: This 63-year-old gentleman with a past medical history of multiple medical problems admitted with influenza A. Patient had multiple complications during the hospitalization. Patient was monitored closely in ICU. Patient mechanically intubated. While in the ICU as mentioned earlier, patient developed hypotension. Patient was pressor supported by two vasopressors. Despite that, the patient developed multiorgan failure. Patient had liver failure. Patient had kidney failure. Patient had hemodialysis. Patient also has significant skin lesions also. The culture showed multiple organisms, strep pneumonia. Patient was treated with antibiotics. Dr. Shipley, Dr. Wilson and Dr. Montiel saw the patient during hospitalization. Care was coordinated. The patient also had fungal sepsis with Freda in the blood, which was also treated with antifungals. Despite active intervention and extensive treatment of the above mentioned multiple complex medical issues, the patient's condition did not improved. The patient gradually deteriorated with worsening. They were unable to do the hemodialysis because of hemodynamic instability. Case discussed at length with the family and the family decided to go through with hospice care and the patient because of above mentioned multiple complex medical issues. Once again, the prognosis was extremely guarded throughout the hospital stay. The patient had multiple complications, influenza A and please refer to the multiple progress notes and consultation notes for further details and staff notes for further details. MMODL / IJN: [id number] / MTDD
== END 2019-03-03 17:43 | disposition expired | DRG 870 ==
LOC: EC 18:24 → 2SICU 19:47
PROVIDERS: ADMIT Hospitalist; ATTEND Hospitalist
PROC: 05HM33Z Insertion of Infusion Device into Right Internal Jugular Vein, Percutaneous Approach (ICD-10-PCS; 2019-02-16)
PROC: 0BH17EZ Insertion of Endotracheal Airway into Trachea, Via Natural or Artificial Opening (ICD-10-PCS; principal; 2019-02-17)
PROC: 5A1955Z Respiratory Ventilation, Greater than 96 Consecutive Hours (ICD-10-PCS; 2019-02-17)
PROC: 0DH67UZ Insertion of Feeding Device into Stomach, Via Natural or Artificial Opening (ICD-10-PCS; 2019-02-17)
PROC: 0W9B30Z Drainage of Left Pleural Cavity with Drainage Device, Percutaneous Approach (ICD-10-PCS; 2019-02-18)
PROC: 0W9B30Z Drainage of Left Pleural Cavity with Drainage Device, Percutaneous Approach (ICD-10-PCS; 2019-02-18)
PROC: 04HY32Z Insertion of Monitoring Device into Lower Artery, Percutaneous Approach (ICD-10-PCS; 2019-02-19)
PROC: 4A133B1 Monitoring of Arterial Pressure, Peripheral, Percutaneous Approach (ICD-10-PCS; 2019-02-19)
PROC: 4A133J1 Monitoring of Arterial Pulse, Peripheral, Percutaneous Approach (ICD-10-PCS; 2019-02-19)
PROC: 06HY33Z Insertion of Infusion Device into Lower Vein, Percutaneous Approach (ICD-10-PCS; 2019-02-19)
PROC: 3E0G76Z Introduction of Nutritional Substance into Upper GI, Via Natural or Artificial Opening (ICD-10-PCS; 2019-02-19)
PROC: 0W9B30Z Drainage of Left Pleural Cavity with Drainage Device, Percutaneous Approach (ICD-10-PCS; 2019-02-20)
PROC: 5A1D70Z Performance of Urinary Filtration, Intermittent, Less than 6 Hours Per Day (ICD-10-PCS; 2019-02-20)
PROC: 0W9B30Z Drainage of Left Pleural Cavity with Drainage Device, Percutaneous Approach (ICD-10-PCS; 2019-03-01)
PROC: 30243N1 Transfusion of Nonautologous Red Blood Cells into Central Vein, Percutaneous Approach (ICD-10-PCS; 2019-03-03)
DX: B37.7 Candidal sepsis (principal); N17.0 Acute kidney failure with tubular necrosis; J96.01 Acute respiratory failure with hypoxia; K72.00 Acute and subacute hepatic failure without coma; J93.0 Spontaneous tension pneumothorax; J15.4 Pneumonia due to other streptococci; J85.1 Abscess of lung with pneumonia; R65.21 Severe sepsis with septic shock; J10.08 Influenza due to other identified influenza virus with other specified pneumonia; K85.90 Acute pancreatitis without necrosis or infection, unspecified; K29.61 Other gastritis with bleeding; I13.0 Hypertensive heart and chronic kidney disease with heart failure and stage 1 through stage 4 chronic kidney disease, or unspecified chronic kidney disease; E87.4 Mixed disorder of acid-base balance; E87.1 Hypo-osmolality and hyponatremia; M62.82 Rhabdomyolysis; Z99.11 Dependence on respirator [ventilator] status; I50.32 Chronic diastolic (congestive) heart failure; E27.40 Unspecified adrenocortical insufficiency; Z66 Do not resuscitate; Z51.5 Encounter for palliative care; D69.6 Thrombocytopenia, unspecified; G62.9 Polyneuropathy, unspecified; E87.5 Hyperkalemia; E83.51 Hypocalcemia; E83.39 Other disorders of phosphorus metabolism; E83.42 Hypomagnesemia; F17.200 Nicotine dependence, unspecified, uncomplicated; R00.0 Tachycardia, unspecified; N18.9 Chronic kidney disease, unspecified; R74.8 Abnormal levels of other serum enzymes; I25.10 Atherosclerotic heart disease of native coronary artery without angina pectoris; E78.5 Hyperlipidemia, unspecified; R14.0 Abdominal distension (gaseous); R73.9 Hyperglycemia, unspecified; E66.9 Obesity, unspecified; D72.823 Leukemoid reaction; E78.1 Pure hyperglyceridemia; D50.9 Iron deficiency anemia, unspecified; Z68.36 Body mass index [BMI] 36.0-36.9, adult; Z79.82 Long term (current) use of aspirin; Z79.02 Long term (current) use of antithrombotics/antiplatelets; Z79.899 Other long term (current) drug therapy; Z95.5 Presence of coronary angioplasty implant and graft; Z88.0 Allergy status to penicillin; Z88.8 Allergy status to other drugs, medicaments and biological substances; Z82.49 Family history of ischemic heart disease and other diseases of the circulatory system; Z80.0 Family history of malignant neoplasm of digestive organs
CPT/HCPCS: 32551; 36415; 36556; 36600; 71045; 74018; 76770; 80048; 80053; 80061; 80202; 81001; 82150; 82306; 82330; 82550; 82805; 83605; 83690; 83735; 83880; 84100; 84132; 84478; 84484; 85025; 85027; 85610; 85730; 86022; 86704; 86706; 86850; 86900; 86901; 86920; 87040; 87070; 87086; 87205; 87324; 87340; 87502; 90935; 93005; 93306; 94002; 94003; 94640; 94660; 96361; 96365; 96366; 96374; 96375; 99291